=== PATIENT | female | born 1980 | race Caucasian/White ===

== ENCOUNTER 2022-10-14 14:17 | Emergency (ER) | payer MEDICARE, MEDICAID, SELFPAY ==
[2022-10-14 14:19] VITALS: BP 102/71; PULSE 87; RESP 20; TEMP 36.9; O2SAT 99; BMI 33.4
[2022-10-14 14:28] VITALS: O2SAT 98
--- NOTE | 2022-10-14 14:47 | ED_ITS ---
HPI - General Adult General Chief complaint: Seizure Stated complaint: SEIZURES Time Seen by Provider: 10/14/22 14:36 Mode of arrival: ambulance History of Present Illness HPI narrative: The patient have history of Down syndrome is coming to us with her caregiver from adult daycare after she had 4 seizures according to the caregiver, the patient had no preceding symptoms of any acute complain when she all of a sudden felt dizzy and they put her on the floor when she started having upper or lower extremity movement, the patient caregiver mentioned that there was 2 minutes in between when she actually went to stop and will start again another movement of her upper and lower extremities. There was no tongue biting or any urine incontinence at any time and the patient herself when asked about the problem she mentioned that she saw herself moving her upper and lower extremity and she saw people around her when this happened calling her name The patient presenting to us by the EMS Related Data Allergies Allergy/AdvReac Type Severity Reaction Status Date / Time Unable to Assess Allergy Verified 10/14/22 14:23 Review of Systems ROS Status of ROS 10 or more systems reviewed and unremarkable except as noted in history and below Exam Narrative Exam Narrative: Nurses notes and vital signs reviewed and patient is not hypoxic. General: Well-appearing and in no apparent distress. Skin: Warm, dry, no pallor noted. No rash. Head: Normocephalic, atraumatic. Neck: Supple, non-tender. Eye: Pupils are equal, round and EOMI. No scleral icterus. Ears, Nose, Mouth, and Throat: TM are clear, no nasal mucosal hypertrophy. Oral mucosa is moist, no posterior oropharynx erythema, uvula is mid-line Cardiovascular: Regular Rate and Rhythm without murmur, gallop or rub. Respiratory: No accessory muscle use or respiratory distress. Lungs are clear to auscultation, no wheezing, rales or rhonchi Chest Wall: no tenderness Back: No midline thoracic or lumbar vertebral tenderness. No CVA tenderness Musculoskeletal: normal ROM, no calf or popliteal tenderness, no lower extremity edema/swelling GI: Abdomen is soft, non-distended. Normal bowel sounds. No masses appreciated. No tenderness to palpation. No rebound, guarding, or rigidity noted. Neurological: A&O x4. No cranial nerve dysfunction observed. Moves all extremities. Sensation intact. Psychiatric: Cooperative and interactive. Normal mood and affect. Constitutional Vital Signs, click to edit/add: Last Vital Signs Temp 98.5 F 10/14/22 14:19 Pulse 87 10/14/22 14:19 Resp 20 10/14/22 14:19 BP 102/71 10/14/22 14:19 Pulse Ox 98 10/14/22 14:28 O2 Del Method Nasal Cannula 10/14/22 14:28 O2 Flow Rate 4 10/14/22 14:28 Course Vital Signs Vital signs: Vital Signs Temperature 98.5 F 10/14/22 14:19 Pulse Rate 87 10/14/22 14:19 Respiratory Rate 20 10/14/22 14:19 Blood Pressure 102/71 10/14/22 14:19 Pulse Oximetry 99 10/14/22 14:19 Oxygen Delivery Method Room Air 10/14/22 14:19 Temperature 98.5 F 10/14/22 14:19 Pulse Rate 87 10/14/22 14:19 Respiratory Rate 20 10/14/22 14:19 Blood Pressure 102/71 10/14/22 14:19 Pulse Oximetry 98 10/14/22 14:28 Oxygen Delivery Method Nasal Cannula 10/14/22 14:28 Oxygen Delivery Flow Rate 4 10/14/22 14:28 Medical Decision Making MDM Narrative Medical decision making narrative: The patient had presented to us completely oriented x4 and there was no state of postictal recorded today and there was no biting her tongue or incontinence of urine The patient blood work-up showed no acute significant pathology there was some metabolic alkalosis which is mostly secondary to history of COPD which is insignificant with the result being 32.7 and a normal 32 The patient provided with 1 extra dose of her Keppra and she was monitored in the ER for almost 2 hours during which she had no symptoms of any neurological pathology The caregiver at the side and her godmother instructed about hydration and monitoring the symptoms follow-up with the neurologist as outpatient within a week The patient is to follow up with primary care physician in next 2-3 days or to return to the emergency department should any of the signs or symptoms worsen or new symptoms develop. The patient agrees with the following Diagnosis and Treatment plan and the patient will be discharged home. Lab Data Labs: Lab Results 10/14/22 Range/Units 14:55 WBC 10.1 (4.0-11.0) 10^3/uL RBC 4.45 (4.20-5.40) 10^6/uL Hgb 13.1 (12.0-16.0) g/dL Hct 40.1 (36.0-48.0) % MCV 90.1 (81.0-99.0) fL MCH 29.4 (26.7-34.0) pg MCHC 32.7 (29.9-35.2) g/dL RDW 14.7 (11.0-15.0) % Plt Count 267 (150-450) 10^3/uL MPV 9.8 (9.5-13.5) fL Neut % (Auto) 77.7 H (43.0-75.0) % Lymph % (Auto) 13.2 L (20.5-60.0) % [place] % (Auto) 6.6 (1.7-12.0) % Eos % (Auto) 1.0 (0.9-7.0) % Baso % (Auto) 0.9 (0.2-2.0) % Neut # (Auto) 7.8 H (1.4-6.5) 10^3/uL Lymph # (Auto) 1.3 (1.2-3.8) 10^3/uL [place] # (Auto) 0.7 (0.3-0.8) 10^3/uL Eos # (Auto) 0.1 (0.0-0.7) 10^3/uL Baso # (Auto) 0.1 (0.0-0.1) 10^3/uL Abs Immat Gran (auto) 0.06 H (0.00-0.03) 10^3/uL Imm/Tot Granulo (auto) 0.6 H (0.0-0.5) % Sodium 134 L (136-145) mmol/L Potassium 4.0 (3.5-5.1) mmol/L Chloride 98 (98-107) mmol/L Carbon Dioxide 32.7 H (21.0-32.0) mmol/L Anion Gap 7.3 BUN 10.0 (7.0-18.0) mg/dL Creatinine 0.84 (0.55-1.02) mg/dL Est GFR ( Amer) >60 (>=60) Est GFR (Non-Af Amer) >60 (>=60) BUN/Creatinine Ratio 11.9 Glucose 139 H (74-106) mg/dL Calcium 8.4 L (8.5-10.1) mg/dL Magnesium 2.1 (1.8-2.4) mg/dL Total Bilirubin 0.3 (0.2-1.0) mg/dL AST 10 L (15-37) U/L ALT 40 (14-59) U/L Alkaline Phosphatase 79 (46-116) U/L Total Protein 7.9 (6.4-8.2) g/dL Albumin 3.4 (3.4-5.0) g/dL Globulin 4.5 g/dL Albumin/Globulin Ratio 0.8 Discharge Plan Discharge Chief Complaint: Seizure Clinical Impression: Seizure Patient Disposition: Home, Self-Care Time of Disposition Decision: 15:54 Condition: Good Instructions: Epilepsy (ED) Stand Alone Forms: Portal Instructions Referrals: GARRETT CARDENAS [Primary Care Provider] - 1 week
[2022-10-14 15:06] LABS: Basophils Absolute Auto 0.1 10^3/uL (0.0-0.1); Basophils Percent Auto 0.9 % (0.2-2.0); Eosinophils Absolute Auto 0.1 10^3/uL (0.0-0.7); Hematocrit 40.1 % (36.0-48.0); Hemoglobin 13.1 g/dL (12.0-16.0); Immature Granulocytes Abs Auto 0.06 10^3/uL (0.00-0.03); Immature Granulocytes Pct Auto 0.6 % (0.0-0.5); Lymphocytes Absolute Auto 1.3 10^3/uL (1.2-3.8); Lymphocytes Percent Auto 13.2 % (20.5-60.0); Mean Corpuscular HGB Conc 32.7 g/dL (29.9-35.2); Mean Corpuscular Hemoglobin 29.4 pg (26.7-34.0); Mean Corpuscular Volume 90.1 fL (81.0-99.0); Mean Platelet Volume 9.8 fL (9.5-13.5); Monocytes Absolute Auto 0.7 10^3/uL (0.3-0.8); Monocytes Percent Auto 6.6 % (1.7-12.0); Neutrophils Absolute Auto 7.8 10^3/uL (1.4-6.5); Neutrophils Percent Auto 77.7 % (43.0-75.0); Platelet Count 267 10^3/uL (150-450); Red Blood Count 4.45 10^6/uL (4.20-5.40); Red Cell Distribution Width 14.7 % (11.0-15.0); White Blood Count 10.1 10^3/uL (4.0-11.0)
[2022-10-14 15:16] LABS: Alanine Aminotransferase 40 U/L (14-59); Albumin Globulin Ratio 0.8; Albumin Level 3.4 g/dL (3.4-5.0); Alkaline Phosphatase 79 U/L (46-116); Anion Gap 7.3; Aspartate Amino Transferase 10 U/L (15-37); BUN Creatinine Ratio 11.9; Bilirubin Total 0.3 mg/dL (0.2-1.0); Calcium 8.4 mg/dL (8.5-10.1); Carbon Dioxide 32.7 mmol/L (21.0-32.0); Chloride 98 mmol/L (98-107); Estimated GFR (African America >60 (>=60); Estimated GFR (Non-African Ame >60 (>=60); Globulin 4.5 g/dL; Glucose 139 mg/dL (74-106); Magnesium 2.1 mg/dL (1.8-2.4); Sodium 134 mmol/L (136-145); Total Protein 7.9 g/dL (6.4-8.2)
[2022-10-14] MEDS: 0.9 % SODIUM CHLORIDE 1,000 ML 1000 ML IV (15:24)
[2022-10-14] MEDS: LEVETIRACETAM 500 MG TABLET PO (15:50)
== END 2022-10-14 16:26 | disposition home or self-care (01) ==
PROVIDERS: Emergency Provider Emergency Medicine; PCP Nurse Practitioner Family
DX: R56.9 Unspecified convulsions (principal)
CPT/HCPCS: 36415; 80053; 83735; 85025; 99285

== ENCOUNTER 2024-02-27 12:08 | Emergency (ER) | payer MEDICARE, MEDICAID, SELFPAY ==
[2024-02-27 12:15] VITALS: BP 108/54; PULSE 54; TEMP 36.8; O2SAT 100; BMI 33.3
== END 2024-02-27 12:45 | disposition home or self-care (01) ==
PROVIDERS: Emergency Provider Emergency Medicine; PCP Family Medicine
DX: Z53.21 Procedure and treatment not carried out due to patient leaving prior to being seen by health care provider (principal)
CPT/HCPCS: 99281

== ENCOUNTER 2025-01-24 09:19 | Emergency (ER) | payer MEDICARE, MEDICAID, SELFPAY ==
--- OUTSIDE RECORDS SUMMARY | 2024-10-13 09:44 | XMS_ITS | Continuity of Care Document ---
Author Organization [facility] Address [address] [place] [address] Phone Care Team Providers Care Media Director Name Role Phone Niall Cook DDS Unavailable Unavailable Allergies, Adverse Reactions, Alerts Substance Reaction Status Criticality No Known Allergies Active No Inform ation Medications Medication Instructions Dosage Effective Dates (start - stop) Status Comments ammonium lactate 12 % topical cream - Active cephalexin 500 mg capsule take 1 capsule by oral route every 6 hours 500 MG - Active All Day Allergy (cetirizine) 10 mg capsule - Active cranberry 400 mg capsule - Active Fiber Therapy (ca polycarbophil) 625 mg tablet - Active lactulose 10 gram/15 mL oral solution take 15 milliliter by oral route every day 10 G - Active levothyroxine 75 mcg capsule take 1 capsule by oral route every day 75 MCG - Active One Daily For Women 18 mg-0.4 mg tablet - Active simvastatin 20 mg tablet take 1 tablet by oral route every day in the evening 20 MG - Active Noxifol-D3 2,500 unit-1 mg tablet take 1 tablet by oral route every day 1.00 tablet - Active Floranex 1 million cell tablet - Active sertraline 100 mg tablet take 1 tablet by oral route every day 100 MG - Active hydroxyzine HCl 50 mg tablet take 1 tablet by oral route 4 times every day 50 MG - Active acetaminophen 325 mg capsule - Active metformin 500 mg tablet take 1 tablet by oral route 2 times every day with morning and evening meals 500 MG - Active Ventolin HFA 90 mcg/actuation aerosol inhaler inhale 2 puff by inhalation route every 4 - 6 hours as needed 180 MCG - Active Antiseptic Skin Cleanser (chlorhexidine) 4 % liquid - Active ArmonAir Digihaler 55 mcg/actuation aerosol powder breath act, sensor inhale 1 puff by inhalation route 2 times every day - Active levetiracetam 500 mg tablet take 1 tablet by oral route 2 times every day 500 MG - Active Problems Condition Type Effective Dates (start - stop) Clini danisha Status Comments No Known Problems Procedures Procedure Date Prophylaxis Adult Topical Application Of Fluoride Varnish Nutrit Couns For Control Of [place]neg[place] Dis Sep Oral Hygiene Instruction Moderate Risk Resin Composite 2s; Posterior Resin Composite 2s; Posterior Oral Hygiene Instruction Prophylaxis Adult Topical Application Of Fluoride Varnish Nutrit Couns For Control Of [place] Dis Mar Oral Hygiene Instruction Moderate Risk Bitewings Four Films Prophylaxis Adult Topical Application Of Fluoride Varnish Nutrit Couns For Control Of [place]neg[place] Dis Sep Oral Hygiene Instruction Treatment Not Completed Oral Hygiene Instruction Prophylaxis Adult Nutrit Couns For Control Of [place]neg[place] Dis Jan Oral Hygiene Instruction Resin Composite 1s; Posterior Intraoral-complete Series (bw) Oral Hygiene Instruction Comp Oral Eval New/estab Patient 2022 Moderna COVID Vaccine Admin Dose 2 Moderna COVID-19 Vaccine Moderna COVID Vaccine Admin Dose 1 Moderna COVID-19 Vaccine IMMUNIZATION ADMIN FLU VAC NO PRSV 4 RICKY 3 YRS+ Admin influenza virus vac FLU VAC NO PRSV 4 RICKY 3 YRS+ Advance Directives Directive Yes / No Effective Date File Name No Information Encounters Encounter Description Practice Location Reason(s) For Visit Diagnoses Date Provider Providers Copied on Encounter [facility], [address] [place] [address], [id number], [place] tel:[phone] Dental Clinic Encounter for screening for dental disorders [facility]iall. [address], [place], [id number], [place]. tel:[phone] [facility], [address], [place], [id number], [place] tel:[phone] Dental Clinic linda (chief complaint) Encounter for screening for dental disorders [facility] Niall. [address], [place], [id number], [place]. tel:[phone] [facility], [address], [place], [id number], [place] tel:[phone] Dental Clinic [place] (chief complaint) Encounter for screening for dental disordersBody mass index [BMI] 38.0-38.9, adult [facility] Niall. [address], [place], [id number], [place]. tel:[phone] [facility], [address], [place], [id number], [place] tel:[phone] [facility] [place] (chief complaint) Encounter for screening for dental disordersBody mass index [BMI]30.0-30.9, adult Mitchrodger DMD Caleb. [address], [place], [id number], [place]. tel:[phone] [facility], [address], [place], [id number], [place] tel:[phone] Dental Clinic filling (chief complaint) Encounter for screening for dental disorders Kanani DMD Caleb. [address], [place], [id number], [place]. tel:[phone] [facility], [address], [place], [id number], [place] tel:[phone] Dental Clinic Encounter for screening for dental disorders Kanani DMD Caleb. [address], [place], [id number], [place]. tel:[phone] [facility], [address], [place], [id number], [place] tel:[phone] Dental Clinic fill (chief complaint) Encounter for screening for dental disorders Romina Ellis. [address], [place], [id number], [place]. tel:[phone] [facility], [address], [place], [id number], [place] tel:[phone] Dental Clinic [place] (chief complaint) Encounter for screening for dental disorders Romina Ellis. [address], [place], [id number], [place]. tel:[phone] [facility], [address], [place], [id number], [place] tel:[phone] [facility] No Information Visci DO Juan Jose. [address], [place], [id number], [place]. tel:[phone] [facility], [address], [place], [id number], [place] tel:[phone] [facility] No Information Visci DO Juan Jose. [address], [place], [id number], [place]. tel:[phone] [facility], [address], [place], [id number], [place] tel:[phone] [employer] No Information Visci DO Juan Jose. [address], [place], [id number], [place]. tel:[phone] Family History Family Member Type Diagnosis Age At Onset No Information Immunizations Vaccine Date Status Comments Moderna COVID administered Source: New Im munization Record Moderna COVID administered Source: New Im munization Record Fluarix, for 3y-18yrs administered Source : New Immunization Record Payers Payer name Insurance type Covered alliance party ID Authoriza tion(s) [place] Medicaid Primary [employer] [id number] Medicare PPS [id number] Medicaid Crossover [id number] Medicare PPS [id number] Social History Type Description Quantity Date Captured Comments Sex Female Smoking Status No Information Sexual Orientation Straight or heterosexual Gender Identity Female Chief Complaint And Reason For Visit No Information Reason For Referral Reason For Referral No Information Plan Of Treatment Date Type Action Status Goal Unhealthy drug use screening . Due on due Goal Influenza vaccine. Due on due Goal Depression screening. Due on due Goal Hepatitis C screening. Due o n due Goal Lipid panel. Due on due Goal RLP. Due on due Goal PRAPARE ASSESSMENT. Due on due Goal Tdap. Due on due Goal HPV. Due on due Goal Tdap Vaccine. Due on 2024 due Goal Tdap. Due on due Goal Depression screening. Due on due Goal HPV. Due on due Goal Influenza vaccine. Due on due Goal Unhealthy drug use screening . Due on due Goal Lipid panel. Due on due Goal Tdap Vaccine. Due on 2024 due Goal Hepatitis C screening. Due o n due Goal PRAPARE ASSESSMENT. Due on due Goal RLP. Due on due Goal Dietary management education , guidance, and counseling completed Goal Tdap Vaccine. Due on 2023 due Goal Hepatitis C screening. Due o n due Goal Tdap. Due on due Goal Unhealthy drug use screening . Due on due Goal Influenza vaccine. Due on due Goal HPV. Due on due Goal PRAPARE ASSESSMENT. Due on A due Goal Depression screening. Due on due Goal Lipid panel. Due on due Goal RLP. Due on due Goal Dietary management education , guidance, and counseling completed Goal Hepatitis C screening. Due o n due Goal HPV. Due on due Goal Tdap. Due on due Goal Influenza vaccine. Due on due Goal Depression screening. Due on due Goal Tdap Vaccine. Due on 2023 due Goal Lipid panel. Due on 024 due Goal RLP. Due on due Goal Unhealthy drug use screening . Due on due Goal PRAPARE ASSESSMENT. Due on due Goal Lipid panel. Due on 023 due Goal Influenza vaccine. Due on due Goal Tdap Vaccine. Due on 2022 due Goal Depression screening. Due on due Goal Tdap. Due on due Goal PRAPARE ASSESSMENT. Due on due Goal Unhealthy drug use screening . Due on due Goal Hepatitis C screening. Due o n due Goal RLP. Due on due Goal HPV. Due on due Goal PRAPARE ASSESSMENT. Due on due Goal Unhealthy drug use screening . Due on due Goal Depression screening. Due on due Goal Influenza vaccine. Due on De due Goal Hepatitis C screening. Due o n due Goal RLP. Due on due Goal HPV. Due on due Goal Tdap Vaccine. Due on 2022 due Goal Tdap. Due on due Goal Lipid panel. Due on due Goal HPV. Due on due Goal Tdap. Due on due Goal Influenza vaccine. Due on No due Goal Lipid panel. Due on due Goal PRAPARE ASSESSMENT. Due on N due Goal Unhealthy drug use screening . Due on due Goal Hepatitis C screening. Due o n due Goal Depression screening. Due on due Goal Tdap Vaccine. Due on 2022 due Goal Hep A. Due on du e Goal RLP. Due on due Referral Ordered: Delgado Valdez MD timeframe: 6 Months. (related to Body mass index [BMI] 38.0- 38.9, adult) [id number] Ordered: Delgado Valdez MD timeframe: 6 Months. (related to Body mass index [BMI] 30.0- 30.9, adult) [id number] History Of Present Illness Encounter Date Complaint History Of Prese nt Illness linda linda cedric steele CEDRIC STEELE filling filling fill fill DN Functional Status Date Functional Assessmen t No Information Instructions Date Instruction Additional Infor mation Dietary management e ducation, guidance, and counseling Related to Body mass index [BMI] 38.0-38.9, adult Giving encouragement to exercise Related to Body mass index [BMI] 38.0-38.9, adult Dietary management e ducation, guidance, and counseling Related to Body mass index [BMI] 30.0-30.9, adult Giving encouragement to exercise Related to Body mass index [BMI] 30.0-30.9, adult Assessments Type Assessment Date No Information Patient Care Teams Name Effective Dates (start - stop) Status Members No Information
--- OUTSIDE RECORDS SUMMARY | 2025-01-12 06:14 | XMS_ITS | Continuity of Care Document ---
Author Organization [facility] Address [address] [place] [address] Phone Care Team Providers Care Tool/Die Maker Name Role Phone Delgado Valdez MD Primary Care Provider Shavon Sebastian Attending Provider + Care Teams Patient Care Team Team Status: Active Member Role/Relationship Status Dates Delgado Valdez MD Primary Care Provider Active Patient Care Team Team Status: Inactive Member Role/Relationship Status Dates Delgado Valdez MD Primary Care Provider Active S tart: January 12, 2025 End: January 12, 2025Faisal Avilatending ProviderActive Start: January 12, 2025 End: January 12, 2025 Chief Complaint and Reason for Visit Chief Complaint Admit Date Follow up January 12, 2025 9:54am Reason for Visit Admit Date Encounter for medication monitoring Kelli sanchez 2024 9:54am Seizures January 12, 2025 9:54am Allergies, Adverse Reactions, Alerts Allergen Type Severity Reaction Last Updated Verified Status diazepam Allergy Unknown Unknown Reaction January 12, 2025 10:39am Yes Active Social History Smoking Status Status Start Date End Date Date of Observa tion Tobacco smoking consumption unknown (emma dodson) October 05, 2024 7:38pm Observation Status Observation Response Date of Response Legal Sex Female (finding) [facility] 1980 Family History Relationship Condition Age at Onset Recorded Date/T bonny father Unknown motherDeceasedUnknownMalignant neoplasmUnknown Problems Active Problems Problem Diagnosis/Recorded Date Onset Date Stat us Counseling regarding advance directives and goals of care June 16, 2023 1:34pm Unknown Active Obstructive sleep apnea June 23, 2022 3:22pm Unknow n Active Acute respiratory failure with hypoxia December 29 1:26pm Unknown Active Respiratory failure with hypercapnia June 23, 2022 9:46am Unknown Active Acute hypercapnic respiratory failure June 23, 2022 3:22pm Unknown Active Impaired mobility and ADLs June 28, 2022 1:10pm Unknow n Active Fever December 28, 2018 10:41pm Unknown A ctive Diabetes June 23, 2022 9:47am Unknown Acti ve Hypoxemia June 22, 2022 9:11pm Unknown Acti ve Encounter for medication monitoring October 07, 2024 10:28am Unknown Active History of seizure June 12, 2023 4:07pm Unknown Active Psychiatric pseudoseizure June 22, 2022 10:01pm Unk nown Active Acute and chronic respirator y failure with hypercapnia July 05, 2022 11:38am Unknown Active Hypothyroid December 28, 2018 5:58pm Unknown Ac tive Acute respiratory failure wi th hypoxia and hypercapnia June 28, 2022 1:10pm Unknown Active CAP (community acquired pneumonia) June 22, 2022 9: 11pm Unknown Active Diabetes mellitus with hyperglycemia June 12, 2023 4:31pm Unknown Active Aspiration pneumonia June 23, 2022 9:47am Unknown Active Aspiration pneumonia June 18, 2023 11:18am Unknown Active Acute hypoxemic respiratory failure June 23, 2022 3 :27pm Unknown Active Down syndrome December 28, 2018 10:40pm Unknown Active Seizure disorder September 22, 2024 6:46am Unknown A ctive Seizure June 23, 2022 9:47am Unknown Acti ve Seizures October 07, 2024 8:43pm Unknown Act juan Productive cough December 28, 2018 10:41pm Unknown Active Chronic respiratory failure with hypoxia and hypercapnia June 12, 2023 4:31pm Unknown Active Acute on chronic respiratory failure with hypoxia and hypercapnia June 11, 2023 8:41pm Unknown Active BMI 39.0-39.9,adult June 14, 2023 11:53am Unknown Active Community acquired bacterial pneumonia December 28 019 10:41pm Unknown Active Hypoxia December 28, 2018 10:42pm Unknown A ctive Pulmonary vascular congestion June 23, 2022 3:22pm Unknown Active Acute diastolic (congestive) heart failure June 12, 2023 4:31pm Unknown Active HTN (hypertension) December 28, 2018 5:58pm Unknown Active Pneumonitis June 23, 2022 9:47am Unknown Acti ve Obesity June 23, 2022 3:23pm Unknown Acti ve Inactive/Resolved Problems Problem Diagnosis/Recorded Date Onset Date Stat us Breakthrough seizure April 19, 2024 11:24am Unkno wn Resolved Adnexal cyst October 04, 2024 6:04pm Unknown Res olved Seizure-like activity October 04, 2024 6:02pm Unknown Resolved Seizure-like activity October 05, 2024 7:48pm Unknown Resolved UTI (urinary tract infection) December 17, 2020 5:35p m Unknown Resolved UTI (urinary tract infection) January 15, 2024 9:58 am Unknown Resolved UTI (urinary tract infection) May 25, 2024 10:50pm Unknown Resolved Malfunction of continuous po sitive airway pressure (CPAP) or bilevel positive airway pressure (BPAP) machine October 15, 2023 10:34am Unknown Resolved Observed seizure-like activity April 15, 2023 6:0 2pm Unknown Resolved Chronic respiratory failure with hypercapnia April 05, 2023 2:28pm Unknown Resolved Contusion of knee May 30, 2023 8:42am Unknown Resolved Seizure January 15, 2024 9:58am Unknown R esolved Seizure April 24, 2024 11:53am Unknown Reso lved Lumbar back sprain May 06, 2023 9:55pm Unknown Resolved Chest wall contusion May 30, 2023 8:42am Unknown Resolved Psychogenic nonepileptic seizure October 05, 2024 9:1 7am Unknown Resolved Minor closed head injury May 30, 2023 8:42am Unknow n Resolved Abdominal pain July 26, 2023 10:26pm Unknown Res olved Medications Medication Status Dose Units Route Directions Qty Days Refills S tart Date Stop Date End Date Reason(s) Instructions Adherence Multivitamin (One-A-Day Essential) Tablet Discontinued 1 T AB PO Daily December 28, 2018 12:00amApril 2023 5:34pmAmmonium Lactate 12 % lotion Dtbqotaghvxa5DGDONOUPZXPWDAcitk dailyU[facility] 2018 12:00amOctober 2020 2:42pmCetirizine 10 mg msiwqgCbdrxxrtctie52RFLFYavdyWhecpuaa 2018 12:00amApril 2023 5:34pmClonazepam 0.5 mg tabletDiscontinued0.25MGPOTwice dailyLake [facility]2018 12:00amN[facility] 2018 12:59pmLevothyroxine 75 mcg ognrzdBpwpon77GTXCBIsnvkSuudoypa 2018 12:00amComplies with drug therapy Simvastatin 20 mg uabrcrTrmfhsntwsck38RJIEBnvxmlaIiqrtnti 2018 12:00am March 13, 2023 9:33amCalcium Polycarbophil 625 mg hoacnzCofdxpiholhq393YQZE DailyUofl [facility] 2018 12:00amJanuary 2023 9:32amCranberry 500 mg Capsule Lhapajdgitnn812EDCHCdhww as needed for Bladder SpasmsUofl Health - [facility] 2018 12:00am March 13, 2023 9:32amLactulose 10 gram/15 mL hujtxvblZzbmnrxncpef44ZEZVYhcmi dailyUofl [facility] 2018 12:00amApril 2023 5:34pmAcetaminophen 325 mg NlqhjbdAzjqcz493OTDSJ1E as needed for PainUofl [facility] - [facility] 2018 12:00amComplies with drug therapyCholecalciferol (Vitamin D3) (Vitamin D3) 2,000 unit Capsule Tblibntyecih2449UDTDRJIutukQqrtjnbj 2018 12:00amApril 2023 5:34pm Lactobacillus Acidoph-L.Bulgar (Floranex) 1 million cell KyybfyYuhwdwelaqba9AFP PODailyNoveaurora east hospital 2018 12:00amApril 2023 5:34pmAzithromycin 250 mg KzbndxLqcszygaxdxp613KFHFVdjuq516Jdcntoml 2018 12:00amOctober 2020 2:42pmCefuroxime Axetil 500 mg bzxdwePvgovtwrphai665QHGZToxmr xpasu5768ZayycfmsDecember 30, 2018 12:00amOctober 2020 2:42pmClonazepam 0.5 mg tabletDiscontinued 0.25MGPOTwice gywmx32Elowvplh 6th, 2019 12:59pmOctober 2020 2:42pmDown syndrome Down syndrome, unspecifiedCranberry Plus Vitamin HGwzyerpufecx6FRSZJVqbfbHpfrblr 2023 12:00amApril 2023 5:28vg0594-57-3 RT-FQ-PBWMFshpdmycah 0.5 mg tabletDiscontinued0.5MGPOTwice dailyJanuary 2023 12:00amFebruary 2023 2:93kjMygljiqroLksglfymghcj6VFAAZGikddEehcpul 2023 12:00amFebruary 2023 2:57qyrwmueezjFlrhgkemdwrz7ITJKVMxohcEuwxfbd 2023 12:00am April 05, 2023 2:40cz922Dxntsknzzj 500 mg sjmyawlGvikrzndaset800BSUQ2 Times a weekJanuary 2023 12:00amApril 2023 5:34pmMWF TO PREVENT UTICalcium Polycarbophil (Fiber Therapy (Ca Polycarboph)) 625 mg ooqeqfLhmwjaaslrqe782RQFG DailyApril 2023 11:00pmApril 2023 5:34pmMagnesium Hydroxide (Milk Of Magnesia) 400 mg/5 mL azwqfhnyguEijziq77GYSPNaqaf daily as needed for constipationApril 2023 11:00pmwhen Lactulose not working and Fiber Therapy not workingComplies with drug therapyMagnesium Hydroxide (Milk Of Magnesia) 400 mg/5 mL rvkdvbpfbmUlwkipuddtwp27CFQDFgzet daily as needed for constipationApril 2023 11:00pmApril 2023 5:34pmwhen Lactulose and Fiber Therapy not workingCalcium Polycarbophil (Fiber-Lax) 625 mg hppvshDtwpzxmlbxww904LLRIRofdz morningApril 2023 11:00pmAugust 2024 7:53amLactobacillus Acidoph- L.Bulgar (Floranex) 1 million cell syprciKudqvndqeyca9IJSHMRkftdTalpf 2023 11:00pmApril 2023 5:34pmNystatin 100,000 unit/gram lbzodWikktl3GXBXWO TOPICALTwice daily as needed for rashApril 2023 11:00pmComplies with drug therapyCephalexin 500 mg bsdqcbbJlgthdazcpik320ASCQHoncn udqpi522Xlzmvlbb2023 12:00amJuly 2024 7:23amLevetiracetam (Keppra) 750 mg tablet Gikxibhgbyen931YEFTNbapk cvqkt13432Fznaxali2023 12:00amAugust 2024 7:53amClotrimazole-Betamethasone 1-0.05 % ifzpzPoublt7RHEBTBWTOJXTEHpfoe daily January 15, 2024 12:00amComplies with drug therapyCalcium Polycarbophil (Fiber (Calcium Polycarbophil)) 625 mg jwsrqpBoarmy003JHLXRqrzxPnmfhx 2024 11:00pmComplies with drug therapyLoratadine 10 mg xlkkymGcbatv16AWYMKjwieGwomvp 2024 11:00pmComplies with drug therapyNitrofurantoin Monohyd/M-Cryst 100 mg nttjshqFzxpmx863XUEFZrtqj at bedtimeAuunm cancer centert 2024 11:00pmComplies with drug therapyCranberry 500 mg kfhzqimKuyjpt566IJGPBywbhVdfijb 2024 11:00pm administer with a mealComplies with drug therapySertraline 100 mg TabletActive 150MGPODailyOctober 2020 11:00pmComplies with drug therapyMagnesium Hydroxide (Milk Of Magnesia) 400 mg/5 mL UoaybqmsfqGuhpkaznvwls20LDXCSdejl 2020 11:00pmFebruary 2023 2:30pmConstipationHOLD LOOSE STOOL Cephalexin 500 mg lzeolvaAceyfgrsongv640VXAO3 Times a weekOctober 2020 11:00pmMay 2022 1:20pmMONDAY FRI, FRIDAYClotrimazole-Betamethasone 1-0.05 % JrzloMoesiydbddwy5ZAQATUPYSYKTYXyzyb dailyOctober 2020 11:00pmApril 2022 7:28pmNystatin (Nyamyc) 100,000 unit/gram GhihwgXgljvbcegvqo5YQPHKOZCGVMEP Twice dailyOctober 2020 11:00pmFebruary 2023 2:30pmFluticasone Propionate 50 mcg/actuation [place],DbeefmpderNbzxcabnamjb6SJTSHKNGOCKXNSGYrndk 2020 11:00pmApril 2023 5:34pmCephalexin 500 mg capsule Lfhxyoqvhelt099QNWCD2Q0918Spiqtul 23rd, 2021 11:00pmApril 2022 7:27pm Ammonium Lactate 12 % atoyqeDkbkesokfqcl1IEXODBJJNRJHATmuli dailyApril 2022 11:00pmApril 2023 5:34pmMetformin 500 mg tablet extended release 24 dsPwotvcvnorow967DSMPBsbuu eveningApril 2022 11:00pmJanuary 2023 9:32amHydroxyzine Hcl 50 mg dvrczgDmjgmfpbdsll49YRYAZjnoscu as needed for InsomniaApr2022 11:00pmJanuary 2023 9:32amGuaifenesin (Mucus Relief Er) 1,200 mg tablet extended release 09mrIrcguzslqtxg4908EWCVOsfvz daily 200May 2022 11:00pmJanuary 2023 9:32amSimvastatin 20 mg tablet Pxcacovebowo13XJIFHildc eveningFebruary 2023 12:00amApril 2023 5:34pmHydroxyzine Hcl 50 mg wefbjfUnzovbskxxwk26MHLUKsaonfaTtedfdpf 2023 12:00amApril 2023 5:34pmMetformin 500 mg unnkgdRbukmjaxlmmg218EGTOSjqhi eveningFebruary 2023 12:00amApril 2023 5:34pmFreeTextSi tablet with a meal Orally Once a day; Note: Source Status: Taking; Provider: Neftali Dubois ( )Albuterol Sulfate (Proair Hfa) 90 mcg/actuation HFA aerosol kwivkllRmvpypljgtme0WHERBQVHOOSRIKC7Q as needed for shortness of breathFebruary 2023 12:00amJanuary 2024 8:10amGuaifenesin 600 mg tablet extended release 72zvUtghzretnhuu6200XEYMKfzkh daily as needed for congestionFebruary 2023 12:00amNovember 2023 12:41pmTrazodone 150 mg cntgtzZcafwvmeygzx984CTWYBtfhpbd as needed for sleepFebruary 2023 12:00am June 18, 2023 5:34pmAlbuterol Sulfate (Proair Hfa) 90 mcg/actuation HFA aerosol crgfvyqMurawzgxqtnp3SRUHLSNBNZCXDQU2I as needed for shortness of breath March 03, 2024 8:09amAugust 2024 9:52amCephalexin 500 mg capsule Fkxppqssewpf839SBEHLoqhp times oetvd3326Fssuavlh 2023 12:00amApril 2023 5:34pmCyclobenzaprine 10 mg cppkmwUjqdnaxmxvcp47WKVRXwizn times daily as needed for Muscle Srqvi245Wsken 2023 11:00pmApril 2023 5:34pm Ibuprofen 800 mg ccnklrTdyiebbvmyvi114ZECMDrebv times daily as needed for Pain20 0March 2023 11:00pmApril 2023 5:34pmAcetaminophen (Tylenol) 325 mg wpenfpNnurrnnhzyyg033MMCMNujae 6 hours as needed for pkir5627Xdokmr 2024 11:00pmAugust 2024 7:52amLidocaine (Lidoderm) 5 % adhesive patch,medicated Hgpuorbgqkkz1ZZPONLFDNANZLsbph93875Hkftik 2024 11:00pmAugust 2024 7:08pmpainleave on most painful area for up to 12 hrsDivalproex 250 mg tablet,delayed release (DR/EC)Nmqdhjgjcuxb624BDPHTperu epkcz368Dekt 2024 11:00pmAugust 2024 10:25amSeizure Unspecified convulsionsSimvastatin 20 mg ljxsaeHlmkwo41FPUZBgjboYwrxesx 2024 12:00amComplies with drug therapyAlbuterol Sulfate (Ventolin Hfa) 90 mcg/actuation HFA aerosol jtipcofJuivvy4VBQRLVOSQDZNULOeino 4 hours as needed October 06, 2024 11:00pmComplies with drug therapySertraline 50 mg tablet Jbcmsngejaph67RHPOHrzyvGmqkjm 2024 11:00pmAugust 2024 10:12am Divalproex 500 mg tablet,delayed release (DR/EC)Ehsfnm998WGAKRwfnp anurr53782 October 07, 2024 10:25amSeizure Unspecified convulsionsComplies with drug therapy Immunizations Immunization Event Date Not Given Reason Dose Number Cloth Burler Lot Number Reason(s) Given Vaccine Information Statement (VIS) Detail Administration Location COVID-19 mRNA Bivalent Booster (Moderna) March 15, 2020 [id number] Vital Signs Vital Reading Result Reference Range Collection Date/Time Height 56 [in_i] January 12, 2025 10:15yoNmhsur51.92 kgJanuary 12, 2025 10:13amHeart Rate70 /yte48-983RmhbmevqJanuary 12, 2025 10:13amRespiratory rate18 /ctj08-88YnpcjyeyJanuary 12, 2025 10:13amOxygen saturation by Pulse oxuchluz20 %95-100January 12, 2025 10:13amBP Cyzeqpfb718 mm[Hg]100-140January 12, 2025 10:13amBP Nypskhosm73 mm[Hg]60-100January 12, 2025 10:13amBMI (Body Mass Index)38.9 kg/l6LbornounJanuary 12, 2025 10:13am Advance Directives Advance Directive Response Recorded Date/ Time Advance Directives No October 15, 2023 8:56am Insurance Providers Guarantor Kelsey Graves Address [address] [facility] [address]Ejsrulo Info.Home Phone: Payer Group Member ID Coverage Type Subscriber Relationship to Subscriber Effective Date Expiration Date Medicaid [id number] L Stein Id: [id number] [address] [place] [id number] Home Phone: Email: DECLINED 18[employer] [id number] L Stein Id: [id number] [address] [place] [id number] Home Phone: Email: DECLINED 18Self Encounters Encounter Location(s) Arrival/Admit Date Discharge/Departure Date Discharge/Departure Disposition Provider(s) Departed Physician/ Provider [facility] January 12, 2025 9:54am January 12, 2025 11:12am Discharged to home care or self care (routine discharge) Shavon Sebastian , RN [facility] Recent Diagnosis Onset Date Admit Date Encounter for medication monitoring Unknown January 12, 2025 9:54am Seizures Unknown January 12, 025 9:54am Assessments Diagnosis Onset Date Resolution Status Admit Date Encounter for medication monitoring acuteNov2024 9:54amSeizureschronicNov2024 9:54am Plan of Treatment Author Shavon Sebastian [facility]Auth[facility]Nov2024 5:48pmMs. Ely is a 44-year-old female with a history of seizure-like activity. She does have a history of Down syndrome which increases her risk for epilepsy. She also has a documented history of AVMs. The patient was evaluated at [facility] on 06/22/2022 for seizure-like activity and found to have acute hypoxic and hypercapnic respiratory failure and bacterial pneumonia at the time. CT head was nonacute. TSH and B12 were within normal limits. Routine EEG revealed moderately slow background rhythm consistent with encephalopathy but was somewhat limited due to near continuous extraneous or motion or muscle related artifact. 2-hour EEG on 08/15/2022 and ambulatory EEG in December 2022 were normal. Per prior documentation, the patient did have a few episodes during the ambulatory EEG without EEG correlate, consistent with nonepileptic events. She is felt to have possible epilepsy and concurrent nonepileptic seizure-like activity. The patient previously took Keppra, but this was stopped due to concern for adverse effects on her mood. At the prior neurology appointment, Keppra was discontinued, and Depakote was prescribed. Caregiver reports concern for 6 possible breakthrough seizure in the patient since that time with no apparent triggers. Will increase the patient's Depakote in the event that some of these may have been epileptic (some seemed to involve loss of consciousness, tonic-clonic activity, and head injury, and one involved possible tongue bite concerning for epileptic cause). 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 The patient was evaluated in the ED three times between 10/04/2024 and 10/05/2024 for seizure-like activity and subsequent head injuries. I reviewed documentation. CT scans of the brain revealed no acute intracranial abnormality each time. PLAN: - Increase divalproex sodium to 500 mg by mouth twice a day. I counseled the patient and her caregiver on the intended purpose of this medication and possible adverse effects. They verbalized understanding and wished to proceed - I counseled the patient and her caregiver on seizure precautions including no driving, no operating heavy machinery, no climbing ladders, no working at heights, no tub bathing alone, no swimming alone, no swimming in dark spencer. Seizure precautions to continue until the patient is at least 6 months episode free and cleared by neurology - I advised the patient's caregiver to promptly notify our office if the patient has any breakthrough seizures prior to the next scheduled follow-up appointment - Patient to be immediately evaluated in the emergency department should she have a seizure lasting longer than 5 minutes or more than 1 seizure in 24 hours in the future or if she fails to return to her baseline state of health following a seizure Divalproex sodium use. PLAN: - Check valproic acid level Diagnoses and treatment plan discussed. The patient and her caregiver verbalized understanding and are agreeable to the plan. All questions answered. Orders placed via facility paperwork. Future Tests Future scheduled test information is unavailable Pending Tests Pending diagnostic test information is unavailable Future Visits Future appointment information is unavailable Future Procedures Future procedure information is unavailable Future Medications Future medication information is unavailable Patient Instructions Patient instructions are unavailable
--- OUTSIDE RECORDS SUMMARY | 2025-01-12 14:00 | XMS_ITS | Encounter Summary ---
Author Organization [facility] Address [address] [place] [address] Care Team Providers Care Car Retarder Operator Name Role Phone Delgado Valdez MD Primary Care Provider [phone] Delgado Valdez MD Unavailable [phone] Alize Figueredo HEALTH CARE FACILITY ADMINISTRATOR Unavailable [phone] Reason for Visit * ReasonCommentsDM Foot Care Encounter Details DateTypeDepartmentCare Team (Latest Contact Info)Vvuvhghnlow11/19/2025 2:00 PM ESTProcedure Visit [facility] [address] [place] [phone] Raymon Pritchett DPQiana [address] [address] Tinea pedis, unspecified laterality (Primary Dx); Pain due to onychomycosis of toenails of both feet; Type 2 diabetes mellitus without complication, without long-term current use of insulin ([facility]) Social History Tobacco UseTypesPacks/DayYears UsedDateSmoking Tobacco: NeverSmokeless Tobacco: Never Tobacco Cessation:Counseling Given: Yes Alcohol UseStandard Drinks/WeekCommentsNever0 (1 standard drink = 0.6 oz pure alcohol)AUDIT-CAnswerDate RecordedQ1: How often do you have a drink containing alcohol?Never04/28/2024Q2: How many drinks containing alcohol do you have on a typical day when you are drinking?Patient does not drink04/28/2024Q3: How often do you have six or more drinks on one occasion?Never04/28/2024PHQ-2AnswerDate RecordedPatient Health Questionnaire-2 Xrbmg04602/29/2024CommentsNoSex and Gender InformationValueDate RecordedSex Assigned at BirthNot on fileLegal Sex Zquztp6105/08/2022 6:42 PM EDTGender IdentityNot on fileSexual OrientationNot on filedocumented as of this encounter Last Filed Vital Signs Vital SignReadingTime TakenCommentsBlood Pressure--Pulse--Temperature-- Respiratory Wtgt831803/14/2024 1:43 PM ESTOxygen Saturation--Inhaled Oxygen Concentration--Gpocya95.1 kg (170 lb)01/12/2025 1:43 PM LEVUnrkfd001.2 cm (4' 8 )01/12/2025 1:43 PM ESTBody Mass Index38. 1:43 PM ESTdocumented in this encounter Progress Notes * Raymon Pritchett, DPM - 01/12/2025 2:00 PM EST Patient: Kelsey Lehman Ely : 1980 PCP: Delgado Valdez MD SUBJECTIVE This is a 44 y.o. female that presents today with a CC of elongated, thick nails. Pt states nails have been elongated and thick for many years and cause pain with ambulation in shoegear. Pt has tried previous treatment with minimal relief. Pt presents today for nail care and treatment. Presents today with care worker She is DM2 Presents today with careworker Pt also presents today for follow up of tinea pedis. Pt states they have been using medicated antifungal cream with positive improvement And states negative itching to feet and toes. Allergies: Allergies Allergen Reactions Diazepam Unknown Past Medical History: Past Medical History: Diagnosis Date Acute diastolic heart failure (HCC) 07/22/2024 Allergies BMI 33.0-33.9,adult Breakthrough seizure ([facility]) 07/22/2024 Chronic obstructive pulmonary disease ([facility]) 07/22/2024 Chronic respiratory failure with hypoxia and hypercapnia ([facility]) 07/22/2024 Controlled type 2 diabetes mellitus without complication ([facility]) Developmental delay Diabetes mellitus with hypoglycemia ([facility]) 07/22/2024 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 12/08/2008 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 DM type 2 (diabetes mellitus, type 2) ([facility]) Down syndrome ([facility]) 11/08/2008 Down syndrome ([facility]) 04/2016 Pseudoseizure Hospitalization Dysuria 07/22/2024 Factitious illness 10/23/2016 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 Gross hematuria 07/22/2024 Heart disease History of heart valve replacement HTN (hypertension) Hypersomnia 12/08/2008 Hypertension 07/22/2024 Hypothyroidism Microhematuria 07/22/2024 Obesity Obesity (BMI 30.0-34.9) OM (onychomycosis) 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 Scoliosis Seizures ([facility]) Sensorineural hearing loss 07/22/2024 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 Snoring Tinea pedis Toe pain, bilateral Transient alteration of awareness 07/02/2016 Medications: Current Outpatient Medications: acetaminophen (Tylenol) 325 MG tablet, Take 325 mg by mouth every 6 (six) hours if needed for mild pain, Disp: , Rfl: albuterol HFA 90 mcg/act inhaler, Inhale 2 puffs every 4 (four) hours if needed for wheezing or shortness of breath, Disp: , Rfl: divalproex (Depakote) 250 MG EC tablet, Take 1 tablet (250 mg) by mouth in the morning and 1 tablet(250 mg) before bedtime. Do not crush, chew, or split., Disp: 60 tablet, Rfl: 2 levothyroxine (Synthroid, Levoxyl) 75 MCG tablet, Take 1 tablet (75 mcg) by mouth in the morning. Take before meals., Disp: 90 tablet, Rfl: 1 nitrofurantoin, macrocrystal-monohydrate, (Macrobid) 100 MG capsule, Take 1 capsule (100 mg) by mouth at bedtime, Disp: 90 capsule, Rfl: 3 nystatin-triamcinolone (Mycolog II) cream, Apply topically 2 (two) times a day as needed (rash), Disp: 30 g, Rfl: 1 oxygen (O2) gas, Inhale 4 L/min continuously, Disp: , Rfl: polycarbophil (FiberCon) 625 MG tablet, Take 1 tablet (625 mg) by mouth Daily, Disp: 30 tablet, Rfl: 11 sertraline (Zoloft) 100 MG tablet, Take 1 tablet (100 mg) by mouth Daily, Disp: 90 tablet, Rfl: 0 sertraline (Zoloft) 50 MG tablet, Take 50 mg by mouth in the morning., Disp: , Rfl: simvastatin (Zocor) 20 MG tablet, Take 1 tablet (20 mg) by mouth 1 (one) time each day at the same time, Disp: 90 tablet, Rfl: 3 Social History: Social History Socioeconomic History Marital status: Unmarried Spouse name: Not on file Number of children: Not on file Years of education: Not on file Highest education level: Not on file Occupational History Not on file Tobacco Use Smoking status: Never Smokeless tobacco: Never Vaping Use Vaping status: Unknown Substance and Sexual Activity Alcohol use: Never Drug use: Never Sexual activity: Defer Partners: Decline to Answer Other Topics Concern Not on file Social History Narrative Not on file Social Drivers of Health Financial Resource Strain: Not on file Food Insecurity: Not on file Transportation Needs: Not on file Physical Activity: Not on file Stress: Not on file Social Connections: Not on file Intimate Partner Violence: Not on file Housing Stability: Not on file ROS: General: denies fever, chills, fatigue, malaise OBJECTIVE LE EXAM: DERM: Elongated thick yellow crumbly nails digits 1 through 10. Positive hair growth b/l feet. negative maceration to interdigital spaces bilateral feet with greatly diminished peeling and dry skin noted to interdigital spaces VASC: Positive palpable pedal pulses bilaterally NEURO: Gross sensation intact to bilateral feet ORTHO: Positive pain on palpation to toenails of the left 1,2,3,4,5 toes and right 1,2,3,4,5 toes ASSESSMENT 1. Tinea pedis, unspecified laterality 2. Pain due to onychomycosis of toenails of both feet 3. Type 2 diabetes mellitus without complication, without long-term current use of insulin (HCC) PLAN Discussed proper foot care with patient today. Continue creams to feet daily of antifungals Debride nails in length and thickness digits 1 through 10 Patient education concerning tinea infection. Discussed use of antifungal cream and foot powders aswell as good foot hygiene and prevention measures. Patient education on condition and treatment of condition. Raymon Pritchett DPM documented in this encounter Plan of Treatment DateTypeDepartmentCare Team (Latest Contact Info)Snjnmcudbnt06/11/2025 3:00 PM ESTOffice Visit [facility] [address] [place] [phone] Patsy Craft DO [address] [place] [address] 03/30/2025 1:30 PM ESTProcedure Visit [facility] [address] [place] [address] Raymon Pritchett DPM [address] [place] [address] 04/20/2025 9:00 AM ESTOffice Visit [facility] [address] [place] [phone] Alize Figueredo, HEALTH CARE FACILITY ADMINISTRATOR [address] [place] [phone] 06/29/2025 10:00 AM EDTOffice Visit [facility] [address] [place] [phone] Alize Figueredo, HEALTH CARE FACILITY ADMINISTRATOR [address] [place] [phone] documented as of this encounter Visit Diagnoses Diagnosis Tinea pedis, unspecified laterality- Primary Pain due to onychomycosis of toenails of both feet Type 2 diabetes mellitus without complication, without long-term current use of insulin (HCC) documented in this encounter Additional Health Concerns AssessmentNoted TimePHQ-9 Depression Total Score: 4:00 PM EST documented as of this encounter Care Teams Team MemberRelationshipSpecialtyStart DateEnd Date Delgado Valdez MD [address] [place] [address] PCP - GeneralFamily Medicine07/09/22 Delgado Valdez MD [address] [place] [address] PCP - ACO [facility]08/05/22 Alize Figueredo NP [address] [place] [address] Nurse PractitionerFamily Kfonuvat45/19/24documented as of this encounter
[2025-01-24 09:24] VITALS: BP 131/72; PULSE 88; TEMP 36.8; O2SAT 94; BMI 34.5
--- NOTE | 2025-01-24 09:38 | ECG_ITS ---
The [facility] Test Date: 2025-01-24 Pat Name: DALJIT MCCALLUM Department: Room: - Gender: Female Teachers Assistant: : 1980 Requested By: Order Number: [id number] Reading MD: Aryan Persaud Measurements Intervals [place] Rate: 80 P: 61 IA: 176 QRS: -64 QRSD: 114 T: 65 QT: 382 QTc: 419 Interpretive Statements 1100 Sinus rhythm 2440 Incomplete right bundle branch block 2630 Left anterior fascicular block 4068 Nonspecific Twave abnormality 8003 Consistent with pulmonary disease 8102 Low QRS voltage in chest leads 9150 abnormal ECG No previous ECG available for comparison Electronically Signed On 01-24-2025 13:32:53 EST by Aryan Persaud
--- NOTE | 2025-01-24 09:40 | ED.ABDPAIN1 ---
HPI - Abdominal Pain General Chief Complaint: Abdominal Pain Stated Complaint: ABDOMINAL PAIN VOMITING DIARRHEA Time Seen by Provider: 01/24/25 09:29 Source: caregiver Mode of arrival: walk-in Limitations: no limitations History of Present Illness HPI narrative: 44-year-old female with past medical history of Down syndrome presenting to us from her group activity as she resides in a fpc, with a complaint of almost 2 to 3 days history of nausea vomiting some diarrhea as well as shortness of breath, the staff did put the patient on oxygen over the last few days although right now she does not need any oxygen. The patient is hard of hearing and not showing any distress at the moment but she does complain of abdominal pain mostly epigastric. And some nausea with vomiting 1 time and this morning as well as diarrhea. No exposure to anybody with similar symptoms Related Data Previous Rx's ?Medication ?Instructions ?Recorded ondansetron 4 mg disintegrating 4 mg PO Q8H nausea 48 hours #10 01/24/25 tablet tabs Allergies Allergy/AdvReac Type Severity Reaction Status Date / Time diazepam Allergy Mild Unknown Verified 01/24/25 09:24 Review of Systems ROS Status of ROS 10 or more systems reviewed and unremarkable except as noted in history and below Exam Narrative Exam Narrative: Nurses notes and vital signs reviewed and patient is not hypoxic. General: Well-appearing and in no apparent distress. Skin: Warm, dry, no pallor noted. No rash. Head: Normocephalic, atraumatic. Neck: Supple, non-tender. Cardiovascular: Regular Rate and Rhythm without murmur, gallop or rub. Respiratory: No accessory muscle use or respiratory distress. Lungs are clear to auscultation, no wheezing, rales or rhonchi Musculoskeletal: normal ROM, no calf or popliteal tenderness, no lower extremity edema/swelling GI: Abdomen is soft, obese and distended but there is no tenderness on palpation Neurological: A&O x4. No cranial nerve dysfunction observed. Constitutional Vital Signs, click to edit/add: Last Vital Signs Temp 98.2 F 01/24/25 09:24 Pulse 88 01/24/25 09:24 Resp 24 H 01/24/25 09:24 BP 131/72 01/24/25 09:24 Pulse Ox 94 L 01/24/25 09:43 O2 Del Method Room Air 01/24/25 09:43 Course Vital Signs Vital signs: Vital Signs Temperature 98.2 F 01/24/25 09:24 Pulse Rate 88 01/24/25 09:24 Respiratory Rate 24 H 01/24/25 09:24 Blood Pressure 131/72 01/24/25 09:24 Pulse Oximetry 94 L 01/24/25 09:24 Oxygen Delivery Method Room Air 01/24/25 09:24 Temperature 98.2 F 01/24/25 09:24 Pulse Rate 88 01/24/25 09:24 Respiratory Rate 24 H 01/24/25 09:24 Blood Pressure 131/72 01/24/25 09:24 Pulse Oximetry 94 L 01/24/25 09:43 Oxygen Delivery Method Room Air 01/24/25 09:43 MDM - Abdominal Pain MDM Narrative Medical decision making narrative: EKG showing sinus rhythm with a heart rate of [address] elevation or depression Patient here in the ER was not in any distress at any time her pulse ox was 96% when I measured it at bedside Patient was provided here with supportive care with Zofran and Toradol as well as Pepcid CBC chemistry as well as a chest x-ray showed no acute pathology The patient was able to tolerate p.o. intake here in the ER Flu test is negative the COVID is positive and the patient right now just continue supportive care for COVID-19 with instruction of hydration Patient will be discharged home with Zofran Lab Data Labs: Lab Results 01/24/25 01/24/25 Range/Units 09:35 09:36 WBC 8.1 (4.0-11.0) 10^3/uL RBC 4.33 (4.20-5.40) 10^6/uL Hgb 13.9 (12.0-16.0) g/dL Hct 42.3 (36.0-48.0) % MCV 97.7 (81.0-99.0) fL MCH 32.1 (26.7-34.0) pg MCHC 32.9 (29.9-35.2) g/dL RDW 13.9 (11.0-15.0) % Plt Count 245 (150-450) 10^3/uL MPV 10.7 (9.5-13.5) fL Neut % (Auto) 69.3 (43.0-75.0) % Lymph % (Auto) 19.6 L (20.5-60.0) % [place] % (Auto) 7.4 (1.7-12.0) % Eos % (Auto) 1.0 (0.9-7.0) % Baso % (Auto) 1.2 (0.2-2.0) % Neut # (Auto) 5.6 (1.4-6.5) 10^3/uL Lymph # (Auto) 1.6 (1.2-3.8) 10^3/uL [place] # (Auto) 0.6 (0.3-0.8) 10^3/uL Eos # (Auto) 0.1 (0.0-0.7) 10^3/uL Baso # (Auto) 0.1 (0.0-0.1) 10^3/uL Abs Immat Gran (auto) 0.12 H (0.00-0.03) 10^3/uL Imm/Tot Granulo (auto) 1.5 H (0.0-0.5) % Sodium 140 (136-145) mmol/L Potassium 4.2 (3.5-5.1) mmol/L Chloride 101 (98-107) mmol/L Carbon Dioxide 30.2 (21.0-32.0) mmol/L Anion Gap 13.0 BUN 14.0 (7.0-18.0) mg/dL Creatinine 0.82 (0.55-1.02) mg/dL Est GFR ( Amer) >60 (>=60 mL/min/1.73m^2) Est GFR (Non-Af Amer) >60 (>=60 mL/min/1.73m^2) BUN/Creatinine Ratio 17.1 Glucose 141 H (74-106) mg/dL Calcium 9.0 (8.5-10.1) mg/dL Total Bilirubin 0.3 (0.2-1.0) mg/dL AST 15 (15-37) U/L ALT 23 (14-59) U/L Alkaline Phosphatase 55 (46-116) U/L Troponin I High Sens 7.4 (4.0-51.3) pg/mL Total Protein 8.1 (6.4-8.2) g/dL Albumin 3.4 (3.4-5.0) g/dL Globulin 4.7 g/dL Albumin/Globulin Ratio 0.7 Influenza Type A Ag Negative Influenza Type B Ag Negative SARS-CoV-2 Ag (CV2AG) Positive A (NEGATIVE) Discharge Plan Discharge Chief Complaint: Abdominal Pain Clinical Impression: COVID-19 Patient Disposition: Home, Self-Care Time of Disposition Decision: 10:19 Condition: Good Prescriptions / Home Meds: New ondansetron 4 mg tablet,disintegrating 4 mg PO Q8H 2 Days Qty: 10 0RF Print Language: Jordanian Instructions: COVID-19 (Coronavirus Disease 2019) (ED) Referrals: MANUEL MORALES [Primary Care Provider, Family Practice] - 1 week
[2025-01-24 09:43] VITALS: O2SAT 94
[2025-01-24] MEDS: 0.9 % SODIUM CHLORIDE 1,000 ML 500 ML IV (09:46)
[2025-01-24 09:47] LABS: Hematocrit 42.3 % (36.0-48.0); Hemoglobin 13.9 g/dL (12.0-16.0); Immature Granulocytes Abs Auto 0.12 10^3/uL (0.00-0.03); Immature Granulocytes Pct Auto 1.5 % (0.0-0.5); Lymphocytes Absolute Auto 1.6 10^3/uL (1.2-3.8); Mean Corpuscular HGB Conc 32.9 g/dL (29.9-35.2); Mean Corpuscular Hemoglobin 32.1 pg (26.7-34.0); Mean Corpuscular Volume 97.7 fL (81.0-99.0); Platelet Count 245 10^3/uL (150-450); Red Blood Count 4.33 10^6/uL (4.20-5.40); White Blood Count 8.1 10^3/uL (4.0-11.0)
[2025-01-24] MEDS: FAMOTIDINE/PF 20 MG/2 ML VIAL IV (09:48)
[2025-01-24] MEDS: KETOROLAC TROMETHAMINE 30 MG/ML VIAL 15 MG IVP (09:49)
[2025-01-24 09:58] VITALS: PULSE 80
--- NOTE | 2025-01-24 10:00 | XR_ITS ---
The [place] [id number] Patient Name: DALJIT MCCALLUM MRN: [id number] date: 1980 Sex: F Assigned Patient Location: ER Current Patient Location: ED.MAIN Accession/Order Number: [id number] Exam Date: 01/24/2025 09:55 Report Date: 01/24/2025 10:11 At the request of: LAURA CODY MD Procedure: XR chest 1V PORTABLE AP ERECT CHEST 1100 hours CLINICAL HISTORY: Shortness of breath, abdominal pain, vomiting and diarrhea COMPARISON: 07/16/2022 Evaluation is slightly limited by large body habitus. The heart is within normal limits for size. There is no suspected vascular congestion. No consolidation is seen. There is no sizable effusion or pneumothorax. The osseous structures are intact. XR/XR chest 1V IMPRESSION: NO ACUTE FINDINGS Impression dictated by: Suzette Cardenas M.D. 01/24/2025 10:11 AM Dictation Location: [place] [address] Electronically authenticated by: [id number] Y Date: 01/24/2025 10:11
[2025-01-24 10:01] LABS: SARS-CoV-2 Ag POSITIVE (NEGATIVE)
[2025-01-24 10:03] LABS: Anion Gap 13.0
[2025-01-24 10:05] LABS: Alanine Aminotransferase 23 U/L (14-59); Albumin Globulin Ratio 0.7; Albumin Level 3.4 g/dL (3.4-5.0); Alkaline Phosphatase 55 U/L (46-116); Aspartate Amino Transferase 15 U/L (15-37); Blood Urea Nitrogen 14.0 mg/dL (7.0-18.0); Calcium 9.0 mg/dL (8.5-10.1); Carbon Dioxide 30.2 mmol/L (21.0-32.0); Chloride 101 mmol/L (98-107); Estimated GFR (African America >60 (>=60 mL/min/1.73m^2); Estimated GFR (Non-African Ame >60 (>=60 mL/min/1.73m^2); Globulin 4.7 g/dL; Glucose 141 mg/dL (74-106); Potassium 4.2 mmol/L (3.5-5.1); Sodium 140 mmol/L (136-145); Total Protein 8.1 g/dL (6.4-8.2)
--- OUTSIDE RECORDS SUMMARY | 2025-01-24 10:07 | XMS_ITS | Encounter Summary ---
Author Organization [facility] Address [address] [facility] [place] [address] Care Team Providers Care Rug Measurer Name Role Phone Delgado Valdez MD Primary Care Provider [phone] Delgado Valdez MD Unavailable [phone] Alize Figueredo ONLINE MARKETER Unavailable [phone] Encounter Details DateTypeDepartmentCare Team (Latest Contact Info)Qkvnnepngxd26/19/2025bstract [facility] [address] [place] [address] Alize Figueredo, ONLINE MARKETER [address] [place] [address] Social History Tobacco UseTypesPacks/DayYears UsedDateSmoking Tobacco: NeverSmokeless Tobacco: NeverAlcohol UseStandard Drinks/WeekCommentsNever0 (1 standard drink = 0.6 oz pure alcohol)AUDIT-CAnswerDate RecordedQ1: How often do you have a drink containing alcohol?Never04/28/2024Q2: How many drinks containing alcohol do you have on a typical day when you are drinking?Patient does not drink04/28/2024Q3: How often do you have six or more drinks on one occasion?Never04/28/2024PHQ-2 AnswerDate RecordedPatient Health Questionnaire-2 Kiapx26102/29/2024 CommentsNoSex and Gender InformationValueDate RecordedSex Assigned at BirthNot on fileLegal ErhVwvzbp20/15/2023 6:42 PM EDTGender IdentityNot on fileSexual OrientationNot on filedocumented as of this encounter Plan of Treatment DateTypeDepartmentCare Team (Latest Contact Info)Pjkkrhtedie99/11/2025 3:00 PM ESTOffice Visit [facility] [address] [place] [address] Patsy Craft, DO [address] [place] [address] 03/30/2025 1:30 PM ESTProcedure Visit [facility] [address] [place] [address] Raymon Pritchett DPM [address] [place] [address] [place] [address] 04/20/2025 9:00 AM ESTOffice Visit [facility] [place] [facility] [address] [place] [phone] Alize Figueredo, ONLINE MARKETER [address] [place] [address] 06/29/2025 10:00 AM EDTOffice Visit [facility] [place] [facility] [address] [place] [phone] Alize Figueredo, ONLINE MARKETER [address] [place] [phone] documented as of this encounter Visit Diagnoses Not on filedocumented in this encounter Additional Health Concerns AssessmentNoted TimePHQ-9 Depression Total Score: 4:00 PM EST documented as of this encounter Care Teams Team MemberRelationshipSpecialtyStart DateEnd Date Delgado Valdez MD [address] [place] [address] PCP - GeneralFamily Medicine07/09/22 Delgado Valdez MD [address] [place] [address] PCP - ACO [facility]08/05/22 Alize Figueredo NP [address] [place] [address] Nurse PractitionerFatempleton developmental center Oolrprse87/19/24documented as of this encounter
--- OUTSIDE RECORDS SUMMARY | 2025-01-24 10:07 | XMS_ITS | Clinical Summary ---
Author Organization [facility] Address [address] [place] [address] Care Team Providers Care Trust Mail Clerk Name Role Phone Delgado Valdez MD Primary Care Provider [phone] Delgado Valdez MD Unavailable [phone] Alize Figueredo NP Unavailable [phone] Allergies Active AllergyReactionsCriticalityNoted OxbdCaudwggfNkqfuwveKwxodwl71/28/2021 Medications MedicationSigDispense QuantityRefillsLast FilledStart DateEnd DateStatus sertraline (Zoloft) 100 MG tablet Indications:Moderate episode of recurrent major depressive disorder (HCC)Take 1 tablet (100 mg) by mouth Daily 90 tablet 4Active acetaminophen (Tylenol) 325 MG tablet Take 325 mg by mouth every 6 (six) hours if needed for mild pain5Active sertraline (Zoloft) 50 MG tablet Take 50 mg by mouth in the morning.5Active albuterol HFA 90 mcg/act inhaler Indications:Chronic obstructive pulmonary disease, unspecified COPD type (HCC) Inhale 2 puffs every 4 (four) hours if needed for wheezing or shortness of giprip725Active divalproex (Depakote) 250 MG EC tablet Indications:Seizure disorder (HCC)Take 1 tablet (250 mg) by mouth in the morning and 1 tablet (250 mg) before bedtime. Do not crush, chew, or split. 60 tablet 5Active oxygen (O2) gas Inhale 4 L/min shggeyubawnj86/30/2025Active nitrofurantoin, macrocrystal-monohydrate, (Macrobid) 100 MG capsule Indications:Recurrent UTITake 1 capsule (100 mg) by mouth at bedtime 90 capsule 305/07/034090/6Active polycarbophil (FiberCon) 625 MG tablet Indications:Slow transit constipation,Drug-induced constipationTake 1 tablet (625 mg) by mouth Daily 30 tablet 1107//914030/6Active levothyroxine (Synthroid, Levoxyl) 75 MCG tablet Indications:Hypothyroidism, unspecified typeTake 1 tablet (75 mcg) by mouth in the morning. Take before meals. 90 tablet 108502/6Active nystatin-triamcinolone (Mycolog II) cream Indications:Candidiasis of breastApply topically 2 (two) times a day as needed (rash) 30 g tive simvastatin (Zocor) 20 MG tablet Indications:Hyperlipidemia, unspecified hyperlipidemia typeTake 1 tablet (20 mg) by mouth 1 (one) time each day at the same time 90 tablet 309//641827/6Active Active Problems ProblemNoted DateDiagnosed DateAbdominal pain10/22/2023cute diastolic (congestive) heart mrmdbkj0510/22/2023cute on chronic respiratory failure with hypoxia and vyfshhuoqjm33/28/2024ounseling regarding advance directives and goals of care10/22/2023iabetes mellitus with kqcrsdahwiiir90/28/2024History of nkclduu2410/22/2023HTN (hypertension)10/22/2023Malfunction of continuous positive airway pressure (CPAP) or bilevel positive airway pressure (BPAP) machine 10/22/2023ltered mental lvqfac6506/16/20233213Nnvoopseriinla31/22/2024own syndrome ([facility])06/16/2023OPD (chronic obstructive pulmonary disease)07/25/2022 Hypoventilation associated with obesity vyegljos90/01/2023Mild intellectual vbkdesctoh10/01/2023Morbid (severe) obesity due to excess ywwqppad66/25/2021MI 39.0-39.9,adult12/11/20207379Osmvmlcpblaq89/20/2021ensorineural hearing loss, szirgtrhr97/18/2021Hearing loss02/08/2020Bilateral hearing loss02/08/2020 Diabetic wwmxtztxdezkqp21/06/9503Fsnnbufbpo16/02/2020Developmental delay 06/11/2019Allergic boqmnnib13/04/2019Slow transit irpmczducnsp61/04/2019Vitamin D /04/2019Insomnia related to another mental ootxcgeh25/01/2019 Generalized anxiety uybuirrf27/07/2018Other idiopathic scoliosis, site gzkjhltedzd77/07/2018Complete trisomy 21 syndrome ([facility])01/09/2017Obstructive sleep apnea /28/1797Cyvunnuqrygioy25/14/4076Uhhmcfgvkwwm64/14/2017 Psychogenic nonepileptic kovxndo3605/07/20169664Cgzwxxn66/14/2017Moderate episode of recurrent major depressive /27/2017Pure hhrwfpczigtclpizhswm38/27/2017 Resolved Problems ProblemNoted DateDiagnosed DateResolved DateChronic respiratory failure with hypoxia and gqbuaniqjov60DysuriaGross xazduisiw88/29/8000Rwimyazqjbvfev68/29/ute diastolic heart yahxjdo28/29/hronic obstructive pulmonary ksxxjxv9407/22/2024 07/22/2024Diabetes mellitus with geqfmorxbehl47/29/reakthrough dmxuzur47Sensorineural hearing loss07/22/ Jeumbksyblpf66Dissociative suyjumnv17 Encounters DateTypeDepartmentCare ReflXpkvhshfdwr45/19/2025 2:00 PM ESTProcedure Visit [facility] [address] [place] [address] Raymon Pritchett, URIEL Tinea pedis, unspecified laterality (Primary Dx); Pain due to onychomycosis of toenails of both feet; Type 2 diabetes mellitus without complication, without long-term current use of insulin ([facility])01/12/2025bstract [facility] [place] [address] [place] [address] Alize Figueredo, HVAC PROJECT ENGINEER 12/29/2024 10:00 AM ESTFollow-Up [facility] [place] [facility] [address] [place] [address] Alize Figueredo NP Chronic obstructive pulmonary disease, unspecified COPD type (HCC) (Primary Dx); IFG (impaired fasting glucose); Generalized anxiety disorder; Down syndrome ([facility])12/29/20240744Xvjfgd45/15/2025Telephone [facility] [address] [place] [address] Patsy Craft, 11/23/2024Refill [facility] [place] [facility] [address] [place] [address] Heidi Lund MA Hyperlipidemia, unspecified hyperlipidemia type11/11/2024bstract [facility] [place] [facility] [address] [place] [address] Alize Figueredo NP 11/10/2024 1:00 PM EDTOffice Visit [facility] [place] [facility] [address] [place] [address] Alize Figueredo NP Encounter for completion of form with patient (Primary Dx)11/10/2024amb flowsheet [facility] [place] [facility] [address] [place] [address] Alize Figueredo NP 11/10/20244132Orvgfr99/12/2025bstract [facility] [address] [place] [address] Patsy Craft, 11/03/2024 1:00 PM EDTOffice Visit [facility] [address] [place] [address] Dagmar Sales, ALEXSANDRA Sensorineural hearing loss, bilateral (Primary Dx)09/10/2025Bamboo flowsheet [facility] [address] [facility] [place] [address] Dagmar Sales, AUD from Last 3 Months Immunizations ImmunizationAdministration DatesNext GgwTJY0307/14/1987,12/31/1983,06/17/1983, 06/07/1983,09/17/1982Hep B, adult08/16/2002,07/15/2002HiB, raklhfnfyqi45/22/1985 Hib (HbOC)10/15/1984Influenza, High Dose Seasonal, Preservative Free12/29/2018, 12/20/2014Influenza, Injectable, MDCK, preservative free12/30/2019Influenza, Ibpknrrcwed51/31/2022,12/30/2019,12/30/2018,12/21/2014Influenza, injectable, MDCK, preservative free, rkgmovaaaqfh52/31/2022Influenza, injectable, quadrivalent, preservative free12/30/2018,12/21/2014MMR10/30/1994,06/17/1983, 06/07/1983OPV07/14/1987,12/31/1983,09/17/1982Pneumococcal Polysaccharide PPSV23 01/13/2019Tdap09/23/2017 Family History Medical HistoryRelationNameCommentsNo Known TfqgcdlqRlgczjurmsgevwzi9439Qjhx cancerMothershirleyRelationNameStatusCommentsBrotherjustinMothershirley Social History Tobacco UseTypesPacks/DayYears UsedDateSmoking Tobacco: NeverSmokeless [...] drinks on one occasion?Never04/28/2024PHQ-2AnswerDate RecordedPatient Health Questionnaire-2 Cjikv25402/29/2024CommentsNoSex and Gender InformationValueDate RecordedSex Assigned at BirthNot on fileLegal Sex Jedgqy1305/08/2022 6:42 PM EDTGender IdentityNot on fileSexual OrientationNot on file Last Filed Vital Signs Vital SignReadingTime TakenCommentsBlood Nuamkrhp812/80102/29/2024 9:53 AM EST Dirmo719712/29/2024 9:53 AM FYOWjahihvysjg92.3 ??C (97.4 ??F)12/29/2024 9:53 AM ESTRespiratory Wylf958503/14/2024 1:43 PM ESTOxygen Xeiwwoembb57%12/29/2024 9:53 AM ESTInhaled Oxygen Concentration--Oqdpox29.1 kg (170 lb)01/12/2025 1:43 PM EST Dzgsat150.2 cm (4' 8 )01/12/2025 1:43 PM ESTBody Mass Index38.1111 1:43 PM EST Plan of Treatment DateTypeDepartmentCare Team (Latest Contact Info)Datnjflunmg65/11/2025 3:00 PM ESTOffice Visit [facility] [address] [place] [phone] Patsy Craft, DO [address] [place] [address] 03/30/2025 1:30 PM ESTProcedure Visit [facility] [address] [place] [phone] Raymon Pritchett DPM [address] [address] 04/20/2025 9:00 AM ESTOffice Visit [facility] [address] [place] [address] Alize Figueredo, HVAC PROJECT ENGINEER [address] [place] [address] 06/29/2025 10:00 AM EDTOffice Visit [facility] [address] [place] [address] Alize Figueredo, HVAC PROJECT ENGINEER [address] [place] [address] Health MaintenanceDue DateLast DoneCommentsPap Smear2002HPV/Cotest 12/17/2011Diabetes: Urine Protein Ybkxgbmwk04/19/88630204/14/2024, 01/27/2023, 12/24/2021, Additional history existsMedicare Annual Wellness (AWV)04/14/2025 04/14/2024, 04/14/2024, 03/03/2023, Additional history existsDiabetes: Hemoglobin A1C/06/2024, 06/30/2024, 04/14/2024, Additional history existsInfluenza Vaccine (#1)61, 12/24/2021, 12/30/2019, Additional history existsPostponed from 10/25/2024 (Patient Refused)Diabetes: Retinopathy Ehkyaozbw43, 03/12/2022, 03/11/2022, Additional history existsPneumococcal Vaccine: Pediatrics (0 to 5 Years) and At-Risk Patients (6 to 64 Years)Mxqlawqdmddz41/20/2019COVID-19 VaccineDiscontinued 03/15/2020, 02/16/20207035MctbsvogfUyuzqcnqyxpl74/19/2025, 4Cervical Cancer ScreeningDiscontinued Procedures Procedure NamePriorityDate/TimeAssociated DiagnosisCommentsPOCT GLYCOSYLATED HEMOGLOBIN (HGB A1C)Yzcnkpt3912/29/2024 10:14 AM EST IFG (impaired fasting glucose) BI MAMMOGRAM SCREENING TOMOSYNTHESIS FVMLFJTMA96/19/2025 5:11 PM EST POCT HWQTMKVQVPCZLxgrdag36/19/2025 1:38 PM EST Type 2 diabetes mellitus without complication, unspecified whether assisted insulin use (HCC) DIABETIC RETINOPATHY SCREENING - OU - BOTH QAJVFrtuktu26/23/2024 3:11 PM EDTfrom Last 3 Months or Most Recently Relevant to Health Maintenance Results * POCT glycosylated hemoglobin (Hb A1C) docked device (12/29/2024 10:14 AM EST) ComponentValueRef RangeTest MethodAnalysis TimePerformed AtPathologist SignatureHemoglobin A1C5.8Specimen (Source)Anatomical Location / Laterality Collection Method / VolumeCollection TimeReceived TimeBloodVenous blood specimen / Yoekaqt5012/29/2024 10:14 AM EST Narrative Authorizing ProviderResult TypeResult StatusJekacey Figueredo NPPOINT OF CARE TEST ENTER/EDIT ORDERABLESFinal Result * Bilateral screening mammogram with tomosynthesis (04/14/2024 5:11 PM EST) Anatomical RegionLateralityModalityBreastBilateralMammographySpecimen (Source) Anatomical Location / LateralityCollection Method / VolumeCollection Time Received Time04/14/2024 5:11 PM EST Impressions 04/14/2024 5:16 PM EST NO MAMMOGRAPHIC EVIDENCE OF MALIGNANCY. ? ROUTINE FOLLOW-UP IS RECOMMENDED IN ONE YEAR. ? RESULT CODE: 1 ? Negative ? DENSITY CODE: 2 (approximately 25-50% glandular) ? FOLLOW UP: 1YR ? The false-negative rate of mammography is approximately 10-percent. ? Management of a palpable abnormality must be based on clinical grounds. ? Patient was entered into a reminder system with a target due date for the next mammogram. ? Impression dictated by: Deangelo Nunn M.D.04/14/2024 5:14 PM ? Dictation Location: [facility] ? Transcribed By: ? PWS ?04/14/24 1714 ? Dictated By: ?Deangelo Nunn MD ?04/14/24 1711 ? Signed By: <Electronically signed by Deangelo Nunn MD in OV> ? 04/14/24 1714 Narrative 04/14/2024 5:16 PM [facility] ?[facility] ?[address] ? [place] [address] ? Mammography Report ? Signed ? Patient: Graves,Kelsey L ?MR#: [id number] ?? [id number] ? : 1980 ?Acct:[id number] ? Age/Sex: 43 / F ?ADM Date: 04/14/24 ? Loc: [place] ?Room: ?Type: REG CLI ?? Attending Dr: Referral Self ?? Copies to: Delgado Valdez MD ?? SELF,REFERRAL ? Ordering Provider: SELF,REFERRAL ?? Date of Service: 04/14/24 ?? MM/MM screening mammo BI w/CAD: SCREENING ? CLINICAL DATA: ??Screening for malignancy. ? SCREENING MAMMOGRAM - FULL FIELD DIGITAL WITH TOMOSYNTHESIS AND CAD ? COMPARISON:2023 ? Tomosynthesis craniocaudal and mediolateral oblique views of both breasts were obtained using low- dose digital technique. ?? This examination was reviewed with the aid of CAD. ? The breast tissue is composed of scattered fibroglandular densities. ??There are no dominant masses, typically malignant calcifications or architectural distortion. ??There has been no significant interval change. ? MM/MM screening mammo BI w/CAD ?? Procedure Note Radiology, Radiologist, - 04/14/2024 [facility] [address] [place] [address] Mammography Report Signed Patient: Kelsey Graves LMR#: [id number] : 1980Acct:[id number] Age/Sex: 43 / FADM Date: 04/14/24 Loc: [place] Room:Type: [facility] Attending Dr: Referral Self Copies to: Delgado Valdez MD SELF,REFERRAL Ordering Provider: SELF,REFERRAL Date of Service: 04/14/24 MM/MM screening mammo BI w/CAD: SCREENING CLINICAL DATA: Screening for malignancy. SCREENING MAMMOGRAM - FULL FIELD DIGITAL WITH TOMOSYNTHESIS AND CAD COMPARISON:2023 Tomosynthesis craniocaudal and mediolateral oblique views of both breastswere obtained using low- dose digital technique. This examination was reviewed with the aid ofCAD. The breast tissue is composed of scattered fibroglandular densities.There are no dominant masses, typically malignant calcifications or architectural distortion. There hasbeen no significant interval change. MM/MM screening mammo BI w/CAD IMPRESSION: NO MAMMOGRAPHIC EVIDENCE OF MALIGNANCY. ROUTINE FOLLOW-UP IS RECOMMENDED IN ONE YEAR. RESULT CODE: 1 Negative DENSITY CODE: 2 (approximately 25-50% glandular) FOLLOW UP: 1YR The false-negative rate of mammography is approximately 10-percent. Management of a palpable abnormality must be based on clinical grounds. Patient was entered into a reminder system with a target due date for thenext mammogram. Impression dictated by: Deangelo Nunn M.D.04/14/2024 5:14 PM Dictation Location: [facility] Transcribed By: SYLVIA 04/14/241713 Dictated By: Deangelo Nunn MD 04/14/241710 Signed By: <Electronically signed by Deangelo Nunn MD in OV> 04/14/241713 Authorizing ProviderResult TypeResult StatusGeneric External Data ProviderIMG BI PROCEDURESFinal Result * POCT microalbumin manually resulted (04/14/2024 1:38 PM EST)ComponentValueRef RangeTest MethodAnalysis TimePerformed AtPathologist SignatureMICROALBUMIN, ZOPUN12GLH/CREAT RATIO<30URINE MSIOI579Inroajna (Source)Anatomical Location / LateralityCollection Method / VolumeCollection TimeReceived TimeUrine 04/14/2024 1:38 PM EST Narrative Authorizing ProviderResult TypeResult StatusAlize Figueredo NPPOINT OF CARE TEST ENTER/EDIT ORDERABLESFinal Result * Diabetic Retinopathy Screening - OU - Both Eyes (12/17/2023 3:11 PM EDT) Anatomical RegionLateralityModalityHeadOther Narrative Authorizing ProviderResult TypeResult StatusAlize Figueredo NPOPHTH PHOTOGRAPHY Final Result from Last 3 Months or Most Recently Relevant to Health Maintenance Insurance Care Teams Team MemberRelationshipSpecialtyStart DateEnd Date Delgado Valdez MD [address] [place] [facility] [place] [address] [facility] - [facility] Delgado Valdez MD [address] [place] [address] PCP - O [facility]08/05/22 Alize Figueredo NP [address] [place] [address] Nurse Pract[facility]erN[facility]01/13/24
--- OUTSIDE RECORDS SUMMARY | 2025-01-24 10:12 | XMS_ITS | CCD ---
Author Organization [facility] Care Team Providers Care Tuckpointer Name Role Phone DR DELGADO VALDEZ Admitting Unavailable VALDEZ, DR NATARAJAN Primary Care Unavailable VALDEZ, DR NATARAJAN Consulting Unavailable VALDEZ, DR NATARAJAN Attending Unavailable NEMO CARDEANS Attending Unavailable NEMO CARDENAS Admitting Unavailable NEMO CARDENAS Primary Care Unavailable NEMO CARDENAS Consulting Unavailable MD Delgado Valdez Primary Care Provider DO Swapnil Quigley Emergency Provider Steve Deleon MD Abel Admit Provider MD Adrienne Abel Attending Provider [phone] MD Tiesha De Attending Provider Salina Etienne Other Provider Unavailable DO Riddhi Mcdonald Other Provider MD Terrance Williamson Other Provider DO Prince Villarreal Other Provider Qian, ANP- Estephania Other Provider DO Bam Stack Other Provider POLINA Ugalde Other Provider MARTHA Franco-Suellen Rodriguez Other Provider POLINA Welsh Other Provider MD Nabil Holman Other Provider MD Aryan Lindsay Other Provider [phone] MD Anabelle Blandon Other Provider DO Valdemar Petit Other Provider [phone] MD Mariza Tesfaye Other Provider MD Alexander Summers Other Provider MD Bam Belle Other Provider DO Tor Pepper Other Provider MD Raul Kwong Other Provider MD Delgado Valdez Primary Care Provider POLINA Welsh Attending Provider [phone] MD Aryan Lindsay Attending Provider MD Cornell Gupta Emergency Provider Aryan Lindsay Unavailable [phone] MD Delgado Valdez Primary Care Provider SHILO Kennedy Attending Provider MD Alexander Barrera Emergency Provider [phone] MD Cornell Gupta Emergency Provider [phone] Delgado Valdez MD Primary Care Provider Delgado Valdez MD Unavailable POLINA Ford Emergency Provider MD Delgado Valdez Primary Care Provider SHILO Kennedy Attending Provider [phone] MD Alexander Barrera Emergency Provider [phone] MD Cornell Gupta Emergency Provider [phone] POLINA Ford Emergency Provider [phone] DO Sherrie Silveira Emergency Provider [phone] DELGADO VALDEZ Primary Care Physician MD Delgado Valdez Primary Care Provider [phone] MD Alexander Barrera Emergency Provider [phone] MD Bigg Schulz Admit Provider DO Albino Morelos Other Provider DO Nat Sage Other Provider MD Hugh Craft Attending Provider DO Cas Springer Other Provider POLINA Olmos Other Provider UnavailPOLINA Kelly Other Provider MD Chivo Sidhu Other Provider MD Delgado Valdez Attending Provider [phone] MD Delgado Valdez Primary Care Provider ELVIE Cervantes Emergency Provider MD Delgado Valdez Primary Care Provider MD Delgado Valdez Primary Care Provider MD Delgado Valdez Attending Provider DO Swapnil Quigley Emergency Provider UnancMD Delgado Mendoza Primary Care Provider José Miguel SPRING, Delgado Primary Care Provider [phone] José Miguel SPRING, Delgado Attending Provider Nat Gutierrez MD Emergency Provider Marcia SAMPLE COLOR MAKER, Nemo Unavailable Terell THOMAS, Alize Thompson Unavailable José Miguel SPRING, Delgado Primary Care Provider José Miguel SPRING, Delgado Referring Provider Self, Referral Attending Provider Unavailable Joseph Vaughn DO Emergency Provider Zee Choudhury DO Emergency Provider [phone] José Miguel SPRING, Delgado Primary Care Provider José Miguel SPRING, Delgado Referring Provider Self, Referral Attending Provider Unavailable Joseph Vaughn DO Emergency Provider Zee Choudhury DO Emergency Provider [phone] Lolis Ludwig DO Emergency Provider KELSEY CISNEROS Attending Unavailable DELGADO VALDEZ Referring Unavailable José Miguel SPRING, Delgado Primary Care Provider [phone] Alize Arrington APRN Attending Provider Brook Yu Attending Provider Unavailable Nat Gutierrez MD Emergency Provider Sherrie Silveira DO Emergency Provider Alexander Barrera MD Emergency Provider Romulo FISH-SECURITY PROFESSIONAL-CShavon Attending Provider Joey WILLETT, Alexis Attending Unavailable Delgado Valdez MD Primary Care Unavailable Amy Vail Unavailable Alexis Cook DDS Unavailable Unavailable Valdez, Delgado Primary Care Unavailable Alexander Barrera Admitting Unavailable Alexander Barrera Attending Unavailable Valdez, Delgado Primary Care Unavailable Sherrie Silveira Admitting Unavailable Sherrie Silveira Attending Unavailable Valdez, Delgado Primary Care Unavailable Nat Gutierrez Admitting Unavailable Nat Gutierrez Attending Unavailable Valdez, Delgado Primary Care Unavailable Lolis Ludwig Admitting Unavailable Lolis Ludwig Attending Unavailable Kei Zee L Admitting Unavailable Zee Choudhury Attending Unavailable Valdez, Delgado Primary Care Unavailable Keister Joseph A Admitting Unavailable Keister Joseph A Attending Unavailable Valdez, Delgado Primary Care Unavailable Nat Gutierrez Admitting Unavailable Nat Gutierrez Attending Unavailable Valdez, Delgado Primary Care Unavailable Valdez, Delgado Primary Care Unavailable Valdez, Delgado Attending Unavailable Valdez, Delgado Admitting Unavailable Alize Arrington Attending Unavailable Valdez, Delgado Primary Care Unavailable LauseAlize Admitting Unavailable Self, Referral Admitting Unavailable Self, Referral Attending Unavailable Valdez, Delgado Primary Care Unavailable Valdez, Delgado Referring Unavailable Valdez, Delgado Primary Care Unavailable Shavon Sebastian Admitting Unavailable Shavon Sebastian Attending Unavailable ALIZE ARRINGTON Attending Unavailable ALIZE ARRINGTON Attending Unavailable RAYMON PEPPER Attending Unavailable VALDEZ DELGADO A Attending Unavailable BRISEYDA FRANKS Attending Unavailable ALIZE ARRINGTON Attending Unavailable PATSY CRAFT Attending Unavailable ALIZE ARRINGTON Referring Unavailable RAYMON PEPPER Attending Unavailable DAGMAR SALES Attending Unavailable VALDEZ, DELGADO A Referring Unavailable SILVIA RAMIREZ Attending Unavailable ALIZE ARRINGTON Attending Unavailable PATSY CRAFT Attending Unavailable ALIZE ARRINGTON Attending Unavailable BRISEYDA FRANKS Attending Unavailable RAYMON PEPPER Attending Unavailable RAYMON PEPPER Attending Unavailable DAGMAR SALES Attending Unavailable ALIZE ARRINGTON Attending Unavailable ALIZE ARRINGTON Attending Unavailable Allergies Allergy ClassificationReported Allergen(s)Allergy TypeDate of OnsetReaction(s) Facility (4 sources)diazePAMDrug Znhtyhf55-63-7192Dhrncku, Unknown ReactionF[facility] (20 sources)DiazepamAllergy to sdyjllzvq67-74-3016AwaroyvXQF[facility] (2 sources)diazapamAllergy to tnkboqiwb78-23-9138Vdrapmr ReactionFlower Hospital (1 source)diazePAMDrug Btcqphe33-54-7613EddawdcooFlower Hospital Repository Medications Current Medications MedicationDrug Class(es)DatesSig (Normalized)Sig (Original)[id number] 200 actuat albuterol 0.09 mg/actuat metered dose inhaler (20 sources)beta2-Adrenergic AgonistStart: 04-01-2024 End: 39-37-7511sijk 2 puff(s) by inhalation every four hours for wheezing albuterol HFA 90 mcg/act inhaler Indications: Chronic obstructive pulmonary disease, unspecified COPD type (HCC) Inhale 2 puffs every 4 (four) hours if needed for wheezing or shortness of breath 04/14/2024 ActiveStart: 04-05-2023 End: 53-11-2346jkts 1 puff(s) by inhalation every four hours as neededAlbuterol Sulfate (Proair Hfa) 90 mcg/actuation HFA aerosol inhaler Discontinued 2 PUFF INHALATION Q4H as needed for shortness of breath March 03, 2024 9:09am October 07, 2024 10:52amStart: 67-30-0589Kpbvhhcbw Sulfate (Proair Hfa) 90 mcg/actuation HFA aerosol inhaler Active 1 INH INHALATION Q4H April 05, 2023 1:00amStart: 54-51-5485cwnbkqkiw HFA 90 mcg/act inhaler every 4 (four) hours. 06/18/2022 Activeamoxicillin 500 mg oral tablet (8 sources)Penicillin-class AntibacterialStart: 10-13-2024 End: 61-78-7875bixd 1 tablet by mouth in the morningamoxicillin (Amoxil) 500 MG tablet Indications: Non-recurrent acute suppurative otitis media of both ears without spontaneous rupture of tympanic membranes Take 1 tablet (500 mg) by mouth in the morning and 1 tablet (500 mg) before bedtime. Do all this for 10 days. 20 tablet 10/13/2024 10/23/2024 Activeamoxicillin 875 mg / clavulanate 125 mg oral tablet (1 source)Penicillin-class AntibacterialStart: 85-77-8010xnls 1 tablet by mouth twice dailyAmoxicillin-Pot Clavulanate Active 1 TAB PO Twice daily 11 11June 28, 2022 12:00ambetamethasone 0.5 mg/ml / clotrimazole 10 mg/ml topical cream (20 sources)Azole Antifungal, CorticosteroidStart: 10-14-2024 End: 66-47-1061gmrohzadxfeu-betamethasone (Lotrisone) cream Indications: Tinea pedis, unspecified laterality Apply1 application topically in the morning and 1 application before bedtime. 45 g 1 10/14/2024 11/13/2024 ActiveStart: 01-15-2024 Start: 07-29-2023 End: 34-81-8773efcleqkdjbhq-betamethasone (Lotrisone) cream Indications: Tinea pedis, unspecified laterality Apply1 application topically in the morning and 1 application before bedtime. 45 g 1 08/19/2024 09/18/2024 ActiveStart: 04-08-2023 clotrimazole-betamethasone (Lotrisone) cream Indications: Tinea Apply 1 application to affected area topically in the morning and 1 application before bedtime. 45 g 0 04/08/2023 ActiveStart: 02-27-2023 End: 71-82-3018kppxlcgclwcf-betamethasone (Lotrisone) cream Apply 1 application to affected area topically in the morning and 1 application before bedtime. 0 02/27/2023 04/08/2023 DiscontinuedStart: 12-17-2020 End: 39-94-8259Pczemtvqcnaz-Betamethasone 1-0.05 % Cream Discontinued 1 APPLIC TOPICAL Twice daily December 17, 2020 12:00am June 22, 2022 8:28pmcalcium polycarbophil 625 mg oral tablet (20 sources)Start: 06-11-2023 End: 32-30-9862ultl 1 tablet by mouth once dailypolycarbophil (FiberCon) 625 MG tablet Indications: Slow transit constipation , Drug-induced constipation Take 1 tablet (625 mg) by mouth Daily 30 tablet 11 08/26/2024 08/26/2025 ActiveStart: 12-28-2018 End: 87-26-6432rvcm 1 tablet by mouth once dailyCalcium Polycarbophil 625 mg tablet Discontinued 625 MG PO Daily December 28, 2018 1:00am March 13, 2023 10:32amcetirizine hydrochloride 10 mg oral tablet (20 sources)Histamine-1 Receptor AntagonistStart: 03-18-2023 End: 30-55-4474qfzwrvkukw (ZyrTEC) 10 MG chewable tablet Indications: Allergic rhinitis, unspecified seasonality, unspecified trigger Chew 1 tablet (10 mg) in the morning. 90 tablet 1 03/18/2023 09/14/2023 ActiveStart: 12-28-2018 End: 48-25-6813xjwo 1 tablet by mouth once dailyCetirizine 10 mg tablet Discontinued 10 MG PO Daily December 28, 2018 1:00am June 18, 2023 6:34pm Cetirizine HCl ActiveCranberry (20 sources)Non-Standardized Food Allergenic Extract, Non-Standardized Plant Allergenic ExtractStart: 50-10-9086ydpc 1 capsule by mouth once dailyStart: 26-07-0304tdam 1 capsule by mouth once dailyCranberry 500 mg capsule Active 500 MG PO Daily October 05, 2024 12:00am administer with a meal Complies with drug therapyStart: 12-28-2018 End: 01-53-7864yawk 1 capsule by mouth once daily as needed for muscle spasms Cranberry 500 mg Capsule Discontinued 500 MG PO Daily as needed for Bladder Spasms December 28, 2018 1:00am March 13, 2023 10:32amStart: 12-28-2018 End: 66-32-2666fqav 1 capsule by mouth once daily as needed for muscle spasms Cranberry 500 mg Capsule Discontinued 500 MG PO Daily as needed for Bladder Spasms December 28, 2018 12:00am March 13, 2023 9:32amStart: 12-28-2018 End: 79-62-6448oltu 500 mg by mouth once dailyCranberry Discontinued 500 MG PO Daily December 28, 2018 1:00am March 13, 2023 10:32amStart: 12-28-2018 End: 29-32-3686euci 500 mg by mouth once dailyCranberry Discontinued 500 MG PO Daily December 28, 2018 12:00am March 13, 2023 9:32amStart: 95-55-1946rkbl 500 mg by mouth once dailyCranberry Active 500 MG PO Daily December 28, 2018 12:00amStart: 60-03-4008qbvd 500 mg by mouth once dailyCranberry Active 500 MG PO Daily December 28, 2018 1:00amCranberry 405 MG Orally ActiveCranberry- Vitamin C-Vitamin E (Cranberry Plus Vitamin C) 4200-20-3 MG-MG-UNIT capsule (15 sources)Start: 37-56-2726Yclmbvbbx-Vitamin C-Vitamin E (Cranberry Plus Vitamin C) 4200-20-3 MG-MG-UNIT capsule 1 capsule 1 (one) time each day at the same time. 05/14/2021 ActiveStart: 42-10-2335Bmsiasfeh-Vitamin C-Vitamin E (Cranberry Plus Vitamin C) 4200-20-3 MG-MG-UNIT capsule 1 capsule 1 (one) time each day at the same time. 0 05/14/2021 ActiveFiber (3 sources)Start: 80-94-6223wurs 1 tablet by mouth once dailyFiber Active 1 TAB PO Daily April 05, 2023 1:00amStart: 34-91-8721skdr 1 tablet by mouth once dailyFiber Active 1 TAB PO Daily April 05, 2023 12:00amFiber Therapy 500 MG (2 sources)Fiber Therapy 500 MG 2 tablets as needed Orally Six times a day ActiveFloranex (2 sources)Floranex Activefluconazole 150 mg oral tablet (5 sources)Azole AntifungalStart: 10-13-2024 End: 68-52-6360rtmpxoootau (Diflucan) 150 MG tablet Indications: Vaginal yeast infection Take 1 tablet (150 mg) bymouth See administration instructions for 1 day Take one tab now. Repeat in 7 days if symptoms persist. 2 tablet 10/13/2024 10/14/2024 Activefluticasone propionate 0.05 mg/actuat metered dose nasal spray (20 sources)CorticosteroidStart: 03-18-2023 End: 92-22-3613tnsb 1 spray(s) nasal route once dailyfluticasone (Flonase) 50 MCG/ACT nasal spray Indications: Allergic rhinitis, unspecified seasonality, unspecified trigger Administer 1 spray into each nostril 1 (one) time each day at the same time 16 g 5 06/03/2023 ActiveStart: 12-17-2020 End: 02-93-3636Bgrlmohivqr Propionate 50 mcg/actuation [place],Suspension Discontinued 1 SPRAY INTRANASAL Daily December 17, 2020 12:00am June 18, 2023 6:34pmGlucose Blood (GLUCOMETER ELITE TEST ) (15 sources)Start: 18-68-7078Sddmtdp Blood (GLUCOMETER ELITE TEST ) 1 (one) time each day at the same time. 06/24/2022 ActiveStart: 58-43-2760Oszufhf Blood (GLUCOMETER ELITE TEST ) 1 (one) time each day at the same time. 0 06/24/2022 Activelevothyroxine sodium 0.075 mg oral tablet (20 sources)l-ThyroxineStart: 12-28-2018 End: 83-45-5352ohve 1 tablet by mouth before mealtimelevothyroxine (Synthroid, Levoxyl) 75 MCG tablet Indications: Hypothyroidism, unspecified type Take1 tablet (75 mcg) by mouth in the morning. Take before meals. 90 tablet 1 10/13/2024 04/11/2025 Activetake 1 tablet by mouth every twenty-four hours Levothyroxine Sodium 75 MCG 1 tablet Orally Once a day Activeloratadine 10 mg oral tablet (4 sources)Start: 50-29-0667hako 1 tablet by mouth once dailymagnesium hydroxide 80 mg/ml oral suspension (20 sources)Start: 80-46-3653wwytecrpd hydroxide (Milk of Magnesia) 400 MG/5ML suspension Take 15 mL by mouth 06/11/2023 ActiveStart: 06-11-2023 End: 27-46-3231vdix 1 mL by mouth twice daily as needed for constipationStart: 57-58-2812nlyc 1 mL by mouth twice daily as needed for constipationMagnesium Hydroxide (Milk Of Magnesia) 400 mg/5 mL suspension Active 15 ML PO Twice daily as neededfor constipation June 11, 2023 12:00am when Lactulose not working and Fiber Therapy not workingStart: 06-11-2023 End: 14-50-3860fhyg 1 mL by mouth twice daily as needed for constipation Magnesium Hydroxide (Milk Of Magnesia) 400 mg/5 mL suspension Discontinued 15 ML PO Twice daily as needed for constipation June 11, 2023 12:00am June 18, 2023 6:34pm when Lactulose and Fiber Therapy not workingStart: 61-21-4483oxjw 1 mL by mouth twice daily as needed for constipationMagnesium Hydroxide (Milk Of Magnesia) 400 mg/5 mL suspension Active 15 ML PO Twice daily as neededfor constipation June 10, 2023 11:00pm when Lactulose not working and Fiber Therapy not workingStart: 06-11-2023 End: 55-29-9077rpsg 1 mL by mouth twice daily as needed for constipation Magnesium Hydroxide (Milk Of Magnesia) 400 mg/5 mL suspension Discontinued 15 ML PO Twice daily as needed for constipation June 10, 2023 11:00pm June 18, 2023 5:34pm when Lactulose and Fiber Therapy not workingStart: 47-08-0297pvrk 1 mL by mouth twice dailyMagnesium Hydroxide (Milk Of Magnesia) 400 mg/5 mL suspension Active 15 ML PO Twice daily June 11, 2023 12:00am when Lactulose not working and Fiber Therapy not workingStart: 06-11-2023 End: 17-54-2710yxjn 1 mL by mouth twice dailyMagnesium Hydroxide (Milk Of Magnesia) 400 mg/5 mL suspension Discontinued 15 ML PO Twice daily June 11, 2023 12:00am June 18, 2023 6:34pm when Lactulose and Fiber Therapy not workingStart: 12-17-2020 End: 90-80-9282ikmx 1 mL by mouth once dailyMagnesium Hydroxide (Milk Of Magnesia) 400 mg/5 mL Suspension Discontinued 15 ML PO Daily December 17, 2020 12:00am April 05, 2023 3:30pm HOLD LOOSE STOOLStart: 12-17-2020 End: 24-59-0851tojp 1 mL by mouth once dailyMagnesium Hydroxide (Milk Of Magnesia) 400 mg/5 mL Suspension Discontinued 15 ML PO Daily December 17, 2020 12:00am April 05, 2023 3:30pm HOLD LOOSE STOOLStart: 12-17-2020 End: 69-55-0477fmqb 1 mL by mouth once dailyMagnesium Hydroxide (Milk Of Magnesia) 400 mg/5 mL Suspension Discontinued 15 ML PO Daily 2020 11:00pm April 05, 2023 2:30pm HOLD LOOSE STOOLStart: 69-82-2598oaqn 1 mL by mouth twice dailyMagnesium Hydroxide (Milk Of Magnesia) 400 mg/5 mL Suspension Active 15 ML PO Twice daily 2020 11:00pmStart: 23-38-6058ynyj 1 mL by mouth twice dailyMagnesium Hydroxide (Milk Of Magnesia) 400 mg/5 mL Suspension Active 15 ML PO Twice daily December 17, 2020 12:00amStart: 10-06-7163awfn 15 mL by mouth once dailymagnesium hydroxide (Milk of Magnesia) 400 MG/5ML suspension 15 ml Orally daily, hold for loose stools 0 07/12/2014 ActiveMelatonin (2 sources)Melatonin Oalyyg33 hr metFORMIN hydrochloride 500 mg extended release oral tablet (20 sources)BiguanideStart: 06-03-2023 End: 72-98-2424lzzf 1 tablet by mouth once dailymetFORMIN XR (Glucophage-XR) 500 MG 24 hr tablet Indications: Class 2 obesity Take 1 tablet (500 mg) by mouth 1 (one) time each day at the same time 90 tablet 1 06/03/2023 ActiveStart: 04-05-2023 End: 33-14-0460omhw 1 tablet by mouth once daily in the eveningMetformin 500 mg tablet Discontinued 500 MG PO Every evening April 05, 2023 1:00am May 6:34pm FreeTextSi tablet with a meal Orally Once a day; Note: Source Status: Taking; Provider: Neftali Baeza ( )Start: 06-22-2022 End: 22-97-8079fhnc 1 tablet by mouth once daily in the eveningMetformin 500 mg tablet extended release 24 hr Discontinued 500 MG PO Every evening June 22, 2022 12:00am March 13, 2023 10:32amtake 1 tablet by mouth every twenty-four hoursmetFORMIN HCl 500 MG 1 tablet with a meal Orally Once a day ActiveMilk of Magnesia (2 sources)Milk of Magnesia ActiveMulti Adult Gummies - (2 sources)Multi Adult Gummies - Orally Activenitrofurantoin, macrocrystals 25 mg / nitrofurantoin, monohydrate 75 mg oral capsule (20 sources)Nitrofuran AntibacterialStart: 06-30-2024 End: 62-63-3538lqgs 1 capsule by mouth at bedtimenitrofurantoin, macrocrystal- monohydrate, (Macrobid) 100 MG capsule Indications: Recurrent UTI Take1 capsule (100 mg) by mouth at bedtime 90 capsule 3 06/30/2024 06/30/2025 ActiveStart: 04-28-2024 End: 67-22-6126obeh 1 capsule by mouth in the morningnitrofurantoin, macrocrystal-monohydrate, (Macrobid) 100 MG capsule Indications: Dysuria , FrequentUTI Take 1 capsule (100 mg) by mouth in the morning and 1 capsule (100 mg) before bedtime. Do all this for 7 days. 14 capsule 04/28/2024 05/05/2024 Activenystatin 755880 unt/ml topical cream (20 sources)Polyene AntifungalStart: 04-14-2024 End: 20-06-2832ezftamjp (Mycostatin) cream Indications: Candidiasis of breast Apply 1 application topically if needed (as needed for yeast under bilateral breast and skin folds.) for up to 14 days 04/14/2024 04/28/2024 ActiveStart: 11-12-7903Jpfdf: 03-24-2023 End: 94-17-8213gggmjjoi (Mycostatin) cream Indications: Intertriginous candidiasis Apply 1 application topically every 12 (twelve) hours 30 g 0 03/24/2023 04/23/2023 ActiveStart: 12-17-2020 End: 33-13-9933Enxfrcwt (Nyamyc) 100,000 unit/gram Powder Discontinued 1 APPLIC TOPICAL Twice daily December 17, 2020 12:00am April 05, 2023 3:30pm nystatin (Mycostatin) cream Apply 1 application topically every 12 (twelve) hours Activenystatin 279663 unt/ml / triamcinolone acetonide 1 mg/ml topical cream (17 sources)Polyene Antifungal, CorticosteroidStart: 39-86-6616ywakfwhi- triamcinolone (Mycolog II) cream Indications: Candidiasis of breast Apply topically 2 (two) times a day as needed (rash) 30 g 1 10/13/2024 ActiveOxygen (20 sources)Start: 27-10-7237ppyyvp (O2) gas Inhale 4 L/min continuously 06/23/2024 ActiveProbiotic Product (PROBIOTIC PO) (15 sources)Start: 15-41-5507Mjwdwphnm Product (PROBIOTIC PO) 1 (one) time each day at the same time. 02/21/2016 ActiveStart: 48-32-9611Vioodbepu Product (PROBIOTIC PO) 1 (one) time each day at the same time. 0 02/21/2016 Active sertraline 50 mg oral tablet (20 sources)Serotonin Reuptake InhibitorStart: 04-05-2024 End: 04-37-4974jkld 1 tablet by mouth in the morningsertraline (Zoloft) 50 MG tablet Take 50 mg by mouth in the morning. 04/05/2024 ActiveStart: 01-13-2024 End: 93-21-0037ouml 1 tablet by mouth once dailysertraline (Zoloft) 100 MG tablet Indications: Moderate episode of recurrent major depressive disorder (HCC) Take 1 tablet (100 mg) by mouth Daily 90 tablet 01/13/2024 ActiveStart: 11-10-2023 End: 33-88-9113gfnp 1 tablet by mouth once dailysertraline (Zoloft) 25 MG tablet Indications: Moderate episode of recurrent major depressive disorder (CMS/HCC) Take 1 tablet (25 mg) by mouth Daily 90 tablet 01/13/2024 04/14/2024 Discontinued (Therapy completed)Start: 08-07-2023 End: 04-86-9648ieub 1 tablet by mouth once dailysertraline (Zoloft) 100 MG tablet Indications: Moderate episode of recurrent major depressive disorder (CMS/HCC) Take 1 tablet (100 mg) by mouth Daily 90 tablet 08/07/2023 Active Start: 08-07-2023 End: 87-28-9392amdd 1 tablet by mouth once dailysertraline (Zoloft) 25 MG tablet Indications: Moderate episode of recurrent major depressive disorder (HCC) (CMS/HCC) Take 1 tablet (25 mg) by mouth Daily 90 tablet 08/07/2023 ActiveStart: 03-71-9580Qcevy: 54-00-5347Wrufavzwho 100 mg Tablet Active 125 MG PO Daily 2020 11:00pmStart: 33-06-0727qyys 125 mg by mouth once daily Sertraline Active 125 MG PO Daily December 17, 2020 12:00amStart: 12-14-2019 take 100 mg by mouth once dailySertraline Active 100 MG PO Daily December 17, 2020 12:00amsimvastatin 20 mg oral tablet (20 sources)HMG-CoA Reductase InhibitorStart: 10-21-2023 End: 76-56-8741sohw 1 tablet by mouth once dailysimvastatin (Zocor) 20 MG tablet Indications: Hyperlipidemia, unspecified hyperlipidemia type Take 1 tablet (20 mg) by mouth 1 (one) time each day at the same time 90 tablet 3 11/23/2024 11/18/2025 ActiveStart: 03-18-2023 End: 82-53-6386noxq 1 tablet by mouth once daily in the eveningSimvastatin 20 mg tablet Discontinued 20 MG PO Every evening April 05, 2023 1:00am May 6:34pmStart: 12-28-2018 End: 00-54-0709amng 1 tablet by mouth at bedtimeSimvastatin 20 mg tablet Discontinued 20 MG PO Bedtime December 28, 2018 1:00am March 13, 2023 10:33amtake 1 tablet by mouth every twenty-four hoursSimvastatin 10 MG 1 tablet in the evening Orally Once a day Activesulfamethoxazole 800 mg / trimethoprim 160 mg oral tablet (2 sources)Dihydrofolate Reductase Inhibitor Antibacterial, Sulfonamide AntimicrobialStart: 05-25-2024 End: 14-69-3022naun 1 tablet by mouth once in the morning, then take 1 tablet by mouth once at bedtimesulfamethoxazole-trimethoprim (Bactrim DS) 800-160 MG per tablet Indications: Frequent UTI , Dysuria Take 1 tablet by mouth in the morning and 1 tablet before bedtime. Do all this for 7 days. 14 tablet 05/25/2024 06/01/2024 ActivetraZODone hydrochloride 50 mg oral tablet (20 sources)Serotonin Reuptake InhibitorStart: 78-71-9046jmfJOQxrc (Desyrel) 50 MG tablet Indications: Primary insomnia Take 1 tablet (50 mg) by mouth as needed at bedtime for sleep 30 tablet 2 04/09/2023 ActiveStart: 03-18-2023 End: 34-84-5022lbge 1 tablet by mouth at bedtime as needed for sleepTrazodone 150 mg tablet Discontinued 150 MG PO Bedtime as needed for sleep April 05, 2023 1:00am June 18, 2023 6:34pmdivalproex sodium 500 mg delayed release oral tablet (20 sources)Mood Stabilizer, Anti-epileptic AgentStart: 40-92-3269stlb 1 tablet by mouth twice dailyStart: 06-23-2024 End: 94-41-8105auph 1 tablet by mouth in the morningdivalproex (Depakote) 250 MG EC tablet Indications: Seizure disorder (HCC) Take 1 tablet (250 mg) by mouth in the morning and 1 tablet (250 mg) before bedtime. Do not crush, chew, or split. 60 tablet2 06/23/2024 ActiveVitamin D3 2000 UNIT (2 sources)Vitamin D3 2000 UNIT Orally Active Completed/Discontinued Medications MedicationDrug Class(es)DatesSig (Normalized)Sig (Original)acetaminophen 325 mg oral tablet (20 sources)Start: 10-04-2024 End: 86-54-8280nwtb 2 tablets by mouth every six hours as needed for pain Acetaminophen (Tylenol) 325 mg tablet Discontinued 650 MG PO Every 6 hours as needed for pain 60 5 October 04, 2024 12:00am October 05, 2024 8:52amStart: 80-63-0766vkeg 1 tablet by mouth every six hours as needed for painacetaminophen (Tylenol) 325 MG tablet Take 325 mg by mouth every 6 (six) hours if needed for mild pain 04/01/2024 ActiveStart: 71-38-0651duyy 2 capsules by mouth every six hours as needed for painStart: 62-48-4027qgwc 650 mg by mouth every six hours Acetaminophen Active 650 MG PO Q6H December 28, 2018 1:00amacetaminophen (Tylenol) 325 MG tablet every 6 (six) hours. ActiveAcetaminophen Active azithromycin 250 mg oral tablet (20 sources)Macrolide AntimicrobialStart: 12-30-2018 End: 15-94-6030bsax 2 tablets by mouth once dailyAzithromycin 250 mg Tablet Discontinued 500 MG PO Daily 06 28December 30, 2018 1:00am November 3:42pmStart: 12-30-2018 End: 93-18-2212buhx 500 mg by mouth once dailyAzithromycin Discontinued 500 MG PO Daily 06 28December 30, 2018 1:00am December 17, 2020 3:42pmBlood Glucose Monitoring Suppl (True Metrix Meter) w/Device kit (20 sources)Start: 02-03-2023 End: 82-58-3180Hwhwu Glucose Monitoring Suppl (True Metrix Meter) w/Device kit 02/03/2023 07/22/2024 Discontinued (Med list cleanup)Start: 23-29-4475Fvlqm Glucose Monitoring Suppl (True Metrix Meter) w/Device kit 02/03/2023 Active Start: 29-35-5588Mrvvl Glucose Monitoring Suppl (True Metrix Meter) w/Device kit USE TO TEST BLOOD SUGAR 02/03/2023 ActiveStart: 48-49-0044Bseoq Glucose Monitoring Suppl (True Metrix Meter) w/Device kit USE TO TEST BLOOD SUGAR 0 02/03/2023 Activecefuroxime 500 mg oral tablet (20 sources)Cephalosporin AntibacterialStart: 12-30-2018 End: 82-73-1872nifp 1 tablet by mouth twice dailyCefuroxime Axetil 500 mg tablet Discontinued 500 MG PO Twice daily 11 28December 30, 2018 1:00am December 17, 2020 3:42pmcephalexin 500 mg oral capsule (20 sources)Cephalosporin AntibacterialStart: 03-18-2023 End: 23-86-1619kxon 1 capsule by mouth twice dailyCephalexin 500 mg capsule Discontinued 500 MG PO Twice daily 10 29January 15, 2024 1:00am September 22, 2024 8:23amStart: 03-18-2023 End: 46-68-0012vzrd 1 capsule by mouth three times dailyCephalexin 500 mg capsule Discontinued 500 MG PO Three times daily 13 09April 15, 2023 1:00am June 18, 2023 6:34pmStart: 03-13-2023 End: 52-66-4094kaeu 1 capsule by mouth three times weeklyCephalexin 500 mg capsule Discontinued 500 MG PO 3 Times a week March 13, 2023 1:00am June 18, 2023 6:34pm MWF TO PREVENT UTIStart: 12-17-2020 End: 94-15-8484rdnl 1 capsule by mouth three times weeklyCephalexin 500 mg capsule Discontinued 500 MG PO 3 Times a week December 17, 2020 12:00am June 2:20pm Fridaystart: 12-17-2020 End: 08-44-9804mrpp 1 capsule by mouth every eight hoursCephalexin 500 mg capsule Discontinued 500 MG PO Q8H 13 09December 17, 2020 12:00am June 22, 2022 8:27pmtake 1 capsule by mouth every weekCephalexin 500 MG 1 capsule Orally 3 days q week Activecholecalciferol 0.05 mg oral capsule (20 sources)Vitamin DStart: 12-28-2018 End: 68-03-5808werz 1 capsule by mouth once dailyCholecalciferol (Vitamin D3) (Vitamin D3) 2,000 unit Capsule Discontinued 2000 UNIT PO Daily December 28, 2018 1:00am June 18, 2023 6:34pmclonazePAM 0.5 mg oral tablet (20 sources)BenzodiazepineStart: 03-13-2023 End: 30-00-3428zsii 1 tablet by mouth twice dailyClonazepam 0.5 mg tablet Discontinued 0.5 MG PO Twice daily March 13, 2023 1:00am April 05, 2023 3:30pmStart: 12-28-2018 End: 98-11-7976ddzi 0.25 mg by mouth twice dailyClonazepam 0.5 mg tablet Discontinued 0.25 MG PO Twice daily 0 December 30, 2018 1:59pm December 17, 2020 3:42pmStart: 12-28-2018 End: 27-80-6659iraf 0.25 mg by mouth twice dailyClonazepam Discontinued 0.25 MG PO Twice daily 0 December 30, 2018 1:59pm December 17, 2020 3:42pmclonazePAM (KlonoPIN) 0.5 MG tablet every 12 (twelve) hours. Activetake 1 tablet by mouth every twelve hoursclonazePAM 0.5 MG 1 tablet Orally Twice a day ActiveCranberry Plus Vitamin C (20 sources)Start: 03-13-2023 End: 42-65-6215phxq 1 tablet by mouth once dailyCranberry Plus Vitamin C Discontinued 1 TAB PO Daily March 13, 2023 12:00am June 18, 2023 5:34pm 4200-20-3 ZA-GH-JPQJRqxst: 03-13-2023 End: 52-90-0622foem 1 tablet by mouth once dailyCranberry Plus Vitamin C Discontinued 1 TAB PO Daily March 13, 2023 1:00am June 18, 2023 6:34pm 4200-20-3 VP-EI-UFSWYywah: 94-37-0087rjct 1 tablet by mouth once dailyCranberry Plus Vitamin C Active 1 TAB PO Daily March 13, 2023 1:00am 4200-20-3 MR-QY-KHAVNnfbh: 51-50-5155qyos 1 tablet by mouth once dailyCranberry Plus Vitamin C Active 1 TAB PO Daily March 13, 2023 12:00am 4200-20-3 MG-MG-UNIT Cranberry-Vit C-Lactobacillus (RA Cranberry Supplements) 450-30 MG tablet (13 sources)Start: 04-28-2024 End: 10-68-0510tdok 1 tablet by mouth once dailyCranberry-Vit C-Lactobacillus (RA Cranberry Supplements) 450-30 MG tablet Indications: Dysuria , Frequent UTI Take 1 tablet by mouth Daily 90 tablet 3 04/28/2024 07/22/2024 Discontinued (Med list cleanup)Start: 04-28-2024 End: 86-60-4879inxk 1 tablet by mouth once dailyCranberry-Vit C-Lactobacillus (RA Cranberry Supplements) 450-30 MG tablet Indications: Dysuria , Frequent UTI Take 1 tablet by mouth Daily 90 tablet 3 04/28/2024 07/27/2024 Active cyclobenzaprine hydrochloride 10 mg oral tablet (18 sources)Muscle RelaxantStart: 05-06-2023 End: 87-62-1055ttxx 1 tablet by mouth three times daily as needed for muscle spasmsCyclobenzaprine 10 mg tablet Discontinued 10 MG PO Three times daily as needed for Muscle Spasm May 06, 2023 12:00am June 18, 2023 6:34pm12 hr guaiFENesin 600 mg extended release oral tablet (20 sources)Start: 59-48-7255cpim 1200 mg by mouth twice dailyGuaifenesin Active 1200 MG PO Twice daily April 05, 2023 1:00amStart: 04-05-2023 End: 76-92-5334wbij 1 tablet by mouth twice daily as needed for congestion Guaifenesin 600 mg tablet extended release 12hr Discontinued 1200 MG PO Twice daily as needed for congestion April 05, 2023 1:00am January 15, 2024 1:41pmStart: 06-28-2022 End: 50-49-4972wyut 1 tablet by mouth twice daily, then take 1 tablet by mouth every twelve hoursGuaifenesin (Mucus Relief Er) 1,200 mg tablet extended release 12hr Discontinued 1200 MG PO Twice daily June 28, 2022 12:00am March 13, 2023 10:32amhydrOXYzine hydrochloride 50 mg oral tablet (20 sources)AntihistamineStart: 06-22-2022 End: 80-69-7579udlx 1 tablet by mouth at bedtimeHydroxyzine Hcl 50 mg tablet Discontinued 50 MG PO Bedtime April 05, 2023 1:00am June 18, 2023 6:34pm ibuprofen 800 mg oral tablet (18 sources)Nonsteroidal Anti-inflammatory DrugStart: 05-06-2023 End: 02-26-9948kcnb 1 tablet by mouth three times daily as needed for pain Ibuprofen 800 mg tablet Discontinued 800 MG PO Three times daily as needed for Pain May 06, 2023 12:00am June 18, 2023 6:34pmammonium lactate 120 mg/ml topical lotion (20 sources)Start: 06-22-2022 End: 07-48-4227Tqoulofb Lactate 12 % lotion Discontinued 1 APPLIC TOPICAL Twice daily June 22, 2022 12:00am June 18, 2023 6:34pmStart: 12-28-2018 End: 13-17-9977Qietykwx Lactate 12 % lotion Discontinued 1 APPLIC TOPICAL Twice daily December 28, 2018 1:00am December 17, 2020 3:42pmammonium lactate (Lac- Hydrin) 12 % lotion apply 1 application to affected area twice a day for 30 days ActiveAmmonium Lactate ActiveLactobacillus Acidoph-L.Bulgar (Floranex) 1 million cell Tablet (20 sources)Start: 12-28-2018 End: 01-32-2330Jivizxwvhzesw Acidoph-L.Bulgar (Floranex) 1 million cell Tablet Discontinued 1 TAB PO Daily December 28, 2018 12:00am June 18, 2023 5:34pm Start: 12-28-2018 End: 30-36-0530Kewlylbaqmcbo Acidoph-L.Bulgar (Floranex) 1 million cell Tablet Discontinued 1 TAB PO Daily December 28, 2018 1:00am June 18, 2023 6:34pm Start: 04-89-3021Atycnfewxfvvo Acidoph-L.Bulgar (Floranex) 1 million cell Tablet Active 1 TAB PO Daily December 12:00amStart: 88-38-6778Tvxtqujnepuot Acidoph-L.Bulgar (Floranex) 1 million cell Tablet Active 1 TAB PO Daily December 1:00amLactobacillus Acidoph-L.Bulgar (Floranex) 1 million cell tablet (11 sources)Start: 06-11-2023 End: 70-67-2294Oxizsirqfijiv Acidoph-L.Bulgar (Floranex) 1 million cell tablet Discontinued 1 TAB PO Daily June 10, 2023 11:00pm June 18, 2023 5:34pm Start: 06-11-2023 End: 84-79-7737Psevkuxktzkkc Acidoph-L.Bulgar (Floranex) 1 million cell tablet Discontinued 1 TAB PO Daily June 11, 2023 12:00am June 18, 2023 6:34pm lactobacillus acidophilus 0.05 mg / lactobacillus bulgaricus 0.05 mg oral tablet (14 sources)Start: 12-28-2018 End: 92-01-3032Wcrtwsxvshafc Acidoph-L.Bulgar (Floranex) 1 million cell tablet Discontinued 1 TAB PO Daily June 11, 2023 12:00am June 18, 2023 6:34pm Start: 05-06-8830Jeuxnnfpclfff tablet 1 (one) time each day at the same time. 0 04/22/2018 Activelactulose 667 mg/ml oral solution (20 sources)Osmotic LaxativeStart: 12-28-2018 End: 44-61-7074wuuc 1 mL by mouth twice dailyLactulose 10 gram/15 mL solution Discontinued 30 ML PO Twice daily December 28, 2018 1:00am June 18, 2023 6:34pmtake 15 mL by mouth once dailyLactulose 10 GM/15ML 15 ml Orally Once a day ActivelevETIRAcetam 750 mg oral tablet (20 sources)Start: 01-15-2024 End: 93-42-5935ivaz 1 tablet by mouth twice dailyLevetiracetam (Keppra) 750 mg tablet Discontinued 750 MG PO Twice daily 13 12January 15, 2024 1:00am October 05, 2024 8:53amStart: 06-28-2022 End: 78-15-8114jejh 1 tablet by mouth twice dailyLevetiracetam 500 mg Tablet Active 500 MG PO Twice daily June 27, 2022 11:00pmtake 1 tablet by mouth every twelve hoursKeppra 500 MG 1 tablet Orally every 12 hrs Activelidocaine 0.05 mg/mg medicated patch (5 sources)Antiarrhythmic, Amide Local AnestheticStart: 10-04-2024 End: 81-48-3236ggqmp 1 dose topically once dailyLidocaine (Lidoderm) 5 % adhesive patch,medicated Discontinued 1 PATCH TOPICAL Daily 15 October 04, 2024 12:00am October 05, 2024 8:08pm leave on most painful area for up to 12 hrsMultivitamin (One-A-Day Essential) Tablet (20 sources)Start: 12-28-2018 End: 24-80-6403sbgb 1 tablet by mouth once dailyMultivitamin (One-A-Day Essential) Tablet Discontinued 1 TAB PO Daily December 28, 2018 12:00am June 18, 2023 5:34pmStart: 12-28-2018 End: 55-56-8471vqkm 1 tablet by mouth once dailyMultivitamin (One-A-Day Essential) Tablet Discontinued 1 TAB PO Daily December 28, 2018 1:00am June 18, 2023 6:34pmStart: 03-91-2964swli 1 tablet by mouth once dailyMultivitamin (One-A-Day Essential) Tablet Active 1 TAB PO Daily December 28, 2018 12:00am Start: 83-10-3259kcjn 1 tablet by mouth once dailyMultivitamin (One-A-Day Essential) Tablet Active 1 TAB PO Daily December 28, 2018 1:00amPediatric Multiple Vitamins (CHEWABLE CRISELDA CHILDRENS PO) (12 sources) End: 62-46-2204Jkuzjpbrd Multiple Vitamins (CHEWABLE CRISELDA CHILDRENS PO) 1 (one) time each day at the same time. 01/28/2024 Discontinued (Therapy completed) Pediatric Multiple Vitamins (CHEWABLE CRISELDA CHILDRENS PO) 1 (one) time each day at the same time. ActivePediatric Multiple Vitamins (CHEWABLE CRISELDA CHILDRENS PO) 1 (one) time each day at the same time. 0 ActiveProbiotic (20 sources)Start: 03-13-2023 End: 84-44-4622dmmi 1 tablet by mouth once dailyProbiotic Discontinued 1 TAB PO Daily March 13, 2023 1:00am April 05, 2023 3:30pmStart: 03-13-2023 End: 45-85-5181hqfk 1 tablet by mouth once dailyProbiotic Discontinued 1 TAB PO Daily March 13, 2023 12:00am April 05, 2023 2:30pmPsyllium (20 sources)Start: 03-13-2023 End: 34-17-0146xumo 1 tablet by mouth once dailypsyllium Discontinued 1 TAB PO Daily March 13, 2023 1:00am April 05, 2023 3:30pm 650Start: 03-13-2023 End: 07-75-6325beoi 1 tablet by mouth once dailypsyllium Discontinued 1 TAB PO Daily March 13, 2023 12:00am April 05, 2023 2:30pm 650 Problems Active Problems Problem ClassificationProblemDateDocumented DateEpisodic/ChronicAnxiety disorders (20 sources)Generalized anxiety disorder; Translations: [Generalized anxiety disorder]Onset: 738290-19-6906KagygsePkblrgqzpv pneumonitis; food/vomitus (20 sources)Aspiration pneumonia; Translations: [Pneumonitis due to inhalation of food and vomit]18-54-2171SxllxjydSlnasnf obstructive pulmonary disease and bronchiectasis (20 sources)Chronic obstructive lung disease; Translations: [Chronic obstructive pulmonary disease, unspecified]Onset: 07-25-2022 Resolved: 222258-46-0266LdlbogbJsverybslx heart failure; nonhypertensive (20 sources)Congestive heart failure; Translations: [Heart failure, unspecified] Onset: 10-22-2023 Resolved: 423831-17-5150WxcnfawNmgtuzpgyenwd disorders (20 sources)Mild intellectual disability; Translations: [Mild intellectual disabilities]Onset: 438538-20-8401EiuzrczHxcjzuam mellitus with complications (20 sources)Diabetes mellitus due to underlying condition with diabetic neuropathy, unspecified; Translations: [Diabetic mononeuropathy]Onset: 12-31-2019 Resolved: 435489-15-2372CuzejxqWhqmeyxr mellitus without complication (20 sources)Diabetes mellitus; Translations: [Type 2 diabetes mellitus without complications]47-76-8064ZetjgmkYasgyfka mellitus without complication (2 sources)Impaired fasting glycemia; Translations: [Impaired fasting glucose] 53-12-4330ArldziorJjvlfzpnj congenital anomalies (20 sources)Enlargement of tongue; Translations: [Macroglossia]Onset: 03-15-2020 68-92-5553LjpcgpwOqfvnnxqj of lipid metabolism (20 sources)Pure hypercholesterolemia, unspecified; Translations: [Pure hypercholesterolemia]Onset: 94-35-2676TvhtaexYlxyusqf; convulsions (20 sources)Seizure; Translations: [Unspecified convulsions]Onset: 10-05-2024 62-99-7497TdiuyngqDvqpkboxg hypertension (20 sources)Hypertensive disorder; Translations: [Essential (primary) hypertension]Onset: 10-22-2023 Resolved: 154663-68-6779ZbgtjyuIztve of unknown origin (20 sources)Fever; Translations: [Fever, unspecified]65-57-9171Closuyta Miscellaneous mental health disorders (20 sources)Dissociative convulsions; Translations: [Conversion disorder with seizures or convulsions]Onset: 05-07-2016 Resolved: 209091-00-8409JurvwyyPvpd disorders (20 sources)Recurrent major depressive episodes, moderate ; Translations: [Major depressive disorder, recurrent, moderate]Onset: hronic Mycoses (20 sources)Dermatophytosis; Translations: [Dermatophytosis, unspecified] 39-92-2691SuvgojfoOhiyyphvtwt deficiencies (20 sources)Vitamin D deficiency, unspecified; Translations: [Vitamin D deficiency]Onset: 433072-20-9946SdxmgucParod aftercare (4 sources)Patient encounter status; Translations: [Encounter for therapeutic drug level monitoring]38-97-2340UokdaiqnJhohp aftercare (2 sources)Post-discharge follow-up; Translations: [Encounter for follow-up examination after completed treatment for conditions other than malignant neoplasm]11-33-0619SubhyeunPhcij aftercare (1 source)Encounter for therapeutic drug level monitoring; Translations: [Encounter for therapeutic drug level monitoring]Onset: 92-68-7969IgavnfamXbyzs bone disease and musculoskeletal deformities (20 sources)Idiopathic scoliosis; Translations: [Other idiopathic scoliosis, site unspecified]Onset: 855473-67-6864BfcuqwxOgihp circulatory disease (20 sources)Pulmonary venous congestion; Translations: [Other specified symptoms and signs involving the circulatory and respiratory systems]50-38-9713Smslggxa Other circulatory disease (2 sources)Other specified symptoms and signs involving the circulatory and respiratory systems; Translations:[Pulmonary congestion and hypostasis] 47-50-2684OqmjyjvqHcaps congenital anomalies (20 sources)Anomaly of chromosome pair 21; 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, unspecified]Onset: 842524-89-1970VtlicbdExrbe congenital anomalies (6 sources)Down syndrome, unspecified; Translations: [Down's syndrome]06-28-2022 ChronicOther congenital anomalies (20 sources)Complete trisomy 21 syndrome; 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, unspecified]Onset: 723930-63-2447JdboibfOsyrs ear and sense organ disorders (20 sources)Hearing loss; Translations: [Unspecified hearing loss, unspecified ear]Onset: 503542-92-9057DtcuupwDqhkv ear and sense organ disorders (20 sources)Sensorineural hearing loss, bilateral; Translations: [Sensorineural hearing loss, bilateral]Onset: 787204-08-9676IfdtgloVcgtd ear and sense organ disorders (20 sources)Bilateral hearing loss; Translations: [Unspecified hearing loss, bilateral]Onset: 668688-07-4393UwtqzeeFpicc female genital disorders (5 sources)Cyst of uterine adnexa; Translations: [Unspecified condition associated with female genital organs and menstrual cycle]41-46-1175Wrrnrebk Other gastrointestinal disorders (4 sources)Drug-induced constipation; Translations: [Drug induced constipation] 33-24-3400RzdzanitDkcbe inflammatory condition of skin (20 sources)Rosacea; Translations: [Rosacea, unspecified]Onset: 05-07-2016 38-14-7945JuiwnerNticd inflammatory condition of skin (1 source)Intertrigo; Translations: [Erythema intertrigo]69-66-0110WvfngvmrYijqs inflammatory condition of skin (1 source)Erythema intertrigo; Translations: [Other specified erythematous conditions]56-31-4535OycovsdvYcetv injuries and conditions due to external causes (18 sources)Minor head injury; Translations: [Unspecified injury of head, initial encounter]01-04-8088PghwjbuuAnbkx lower respiratory disease (20 sources)Hypoxemia; Translations: [Hypoxemia]47-88-0639ItmfduvqCazdn lower respiratory disease (20 sources)Productive cough ; Translations: [Productive cough]12-28-2018 EpisodicOther lower respiratory disease (20 sources)Hypoxia; Translations: [Hypoxemia]06-91-2784QyykmquvIigpy lower respiratory disease (3 sources)Hypoxemia; Translations: [Hypoxemia]75-27-8571VjajpkrbTtkbj lower respiratory disease (20 sources)Pneumonitis; Translations: [Other disorders of lung]06-23-2022 EpisodicOther lower respiratory disease (1 source)Acute pulmonary edema; Translations: [Acute pulmonary edema]Onset: 84-43-1186EblsasqrSpfpt lower respiratory disease (4 sources)Other disorders of lung; Translations: [Pneumonia, organism unspecified]02-88-1267LwocgnaaZiwtn nervous system disorders (20 sources)Narcolepsy; Translations: [Narcolepsy without cataplexy]Onset: 138645-73-6440LsodxczIhvze nervous system disorders (20 sources)Disorder of brain; Translations: [Encephalopathy, unspecified]Onset: 082809-30-1768PfgmqmaHuvsq nervous system disorders (1 source)H/O: respiratory disease; Translations: [Personal history of other diseases of the nervous system and sense organs]89-54-6500PuqnituhPoxqi nervous system disorders (1 source)Other abnormal involuntary movements; Translations: [Other abnormal involuntary movements]Onset: 77-36-6037MjmzzcguRmbaa nutritional; endocrine; and metabolic disorders (3 sources)Body mass index (BMI) 38.0-38.9, adult; Translations: [BODY MASS INDEX BMI 38.0-38.9 ADULT]Onset: 76-69-3188WhkhyrrCbxdy nutritional; endocrine; and metabolic disorders (1 source)Body mass index (BMI) 36.0-36.9, adult; Translations: [BODY MASS INDEX BMI 36.0-36.9 ADULT]Onset: 17-72-8263OtnnlflVkuon nutritional; endocrine; and metabolic disorders (5 sources)Body mass index (BMI) 39.0-39.9, adult; Translations: [Body Mass Index 39.0-39.9, adult]Onset: 864747-22-3841MgeiajtQlzpe nutritional; endocrine; and metabolic disorders (20 sources)Obesity; Translations: [Obesity, unspecified]34-12-1986EywqwowNqkec nutritional; endocrine; and metabolic disorders (2 sources)Obesity, unspecified; Translations: [Obesity, unspecified]06-28-2022 ChronicOther nutritional; endocrine; and metabolic disorders (2 sources)Childhood obesity; Translations: [Obesity, unspecified]ChronicOther nutritional; endocrine; and metabolic disorders (2 sources)Obese; Translations: [Obesity, unspecified]ChronicOther nutritional; endocrine; and metabolic disorders (2 sources)Obese class II; Translations: [Obesity, unspecified]Onset: 12-11-2020 30-43-0628VjugopmHsilf nutritional; endocrine; and metabolic disorders (20 sources)Alveolar hypoventilation; Translations: [Morbid (severe) obesity with alveolar hypoventilation]Onset: 548183-53-5552SjikcyyAmelh nutritional; endocrine; and metabolic disorders (20 sources)Obesity caused by energy imbalance; Translations: [Morbid (severe) obesity due to excess calories]Onset: 686204-19-6626MxjuuxkEjtyu nutritional; endocrine; and metabolic disorders (20 sources)Body mass index 30+ - obesity; Translations: [Body mass index (BMI) 39.0-39.9, adult]Onset: 998983-51-7719PmuvnejWglco screening for suspected conditions (not mental disorders or infectious disease) (7 sources)Blood chemistry abnormal; Translations: [Other specified abnormal findings of blood chemistry]Onset: 97-40-6210PcipjhivXjanj upper respiratory disease (20 sources)Allergic rhinitis; Translations: [Allergic rhinitis, unspecified] Onset: 493440-22-6798YsplusvWnkdfp media and related conditions (2 sources)Acute suppurative otitis media without spontaneous rupture of ear drum; Translations: [Acute suppurative otitis media without spontaneous rupture of ear drum, bilateral]23-76-5403PwgudijbZgmzletiv (except that caused by tuberculosis or sexually transmitted disease) (20 sources)Community acquired pneumonia; Translations: [Pneumonia, unspecified organism]16-28-3207KwprpdkiYhksexdp codes; unclassified (20 sources)Obstructive sleep apnea syndrome; Translations: [Obstructive sleep apnea (adult) (pediatric)]Onset: 140745-05-5595CztpjkzHqadhsyc codes; unclassified (6 sources)Obstructive sleep apnea (adult) (pediatric); Translations: [Obstructive sleep apnea (adult)(pediatric)]27-85-6421OmrrlqnDdnqtaat codes; unclassified (2 sources)Transient alteration of awareness; Translations: [Transient alteration of awareness]99-47-9378FlvzcwemUgppwxpqiyn failure; insufficiency; arrest (adult) (20 sources)Acute on chronic hypercapnic respiratory failure; Translations: [Acute and chronic respiratory failure with hypercapnia]Onset: 06-11-2023 Resolved: 766555-87-1952FfgyfvjDfipchqfudi failure; insufficiency; arrest (adult) (20 sources)Acute respiratory failure; Translations: [Acute respiratory failure with hypoxia]76-88-9056HdhdppriWjtsadr and strains (18 sources)Lumbar sprain; Translations: [Sprain of ligaments of lumbar spine, initial encounter]06-94-3762GmquayznOkpthnywxqk injury; contusion (20 sources)Contusion of knee; Translations: [Contusion of unspecified knee, initial encounter]01-17-1252WxaalaxuGxqsjdg disorders (20 sources)Hypothyroidism, unspecified; Translations: [Hypothyroidism]Onset: 919592-67-4433FyoocktAicyfolnavon (1 source)Obesity, class 2; Translations: [Obesity, class 2]Onset: 08-25-2024 Urinary tract infections (20 sources)Urinary tract infectious disease; Translations: [Urinary tract infection, site not specified]Onset: 233472-97-8502Tmzlcezj Past or Other Problems Problem ClassificationProblemDateDocumented DateEpisodic/ChronicAbdominal pain (20 sources)Abdominal pain; Translations: [Unspecified abdominal pain]Onset: 519912-70-2066PsuujgpoJuxdzwrixvddbd/social admission (20 sources)Other reduced mobility; Translations: [Impaired mobility and activities of daily living]Onset: 218396-30-6291JskekgjqKjheyasfyrohz of surgical procedures or medical care (20 sources)Complication of medical care; Translations: [Other specified complications of surgical and medical care, not elsewhere classified, initial encounter]Onset: 10-22-2023 Resolved: 196923-68-7145NumkfnlrPtctygtt; convulsions (20 sources)Seizure disorder; Translations: [Epilepsy, unspecified, not intractable, without status epilepticus]Onset: 07-22-2024 Resolved: 320507-43-7024HimzyylPwhfpfqokzdut symptoms and ill-defined conditions (20 sources)Dysuria; Translations: [Dysuria]Onset: 07-22-2024 Resolved: 467722-70-3863OctvdvvbAngt disorders (20 sources)Mood disordersOnset: 605042-62-7226Fzynw ear and sense organ disorders (20 sources)Sensorineural hearing loss; Translations: [Unspecified sensorineural hearing loss]Onset: 07-22-2024 Resolved: [id number] gastrointestinal disorders (20 sources)Constipation; Translations: [Constipation, unspecified]Onset: 180594-42-9923NduuqqijEclfk gastrointestinal disorders (20 sources)Slow transit constipation; Translations: [Slow transit constipation] Onset: 564442-38-4534PqrnttrvDyocf nutritional; endocrine; and metabolic disorders (20 sources)Developmental delay; Translations: [Unspecified lack of expected normal physiological development in childhood]Onset: EpisodicResidual codes; unclassified (6 sources)History of clinical finding in subject; Translations: [Personal history of other specified conditions]Onset: 396365-98-2870Lnwonsas Residual codes; unclassified (20 sources)Personal history of other specified conditions; Translations: [Personal history of other specified diseases]Onset: EpisodicResidual codes; unclassified (20 sources)Altered mental status; Translations: [Altered mental status, unspecified]Onset: 118091-85-8579MhbhbsitWmxgfmammdw; intervertebral disc disorders; other back problems (1 source)Dorsalgia, unspecified; Translations: [Dorsalgia, unspecified]Onset: 90-59-4711Tcjoblfz Results Test NameValueInterpretationReference ZbaaiRzjwnxhbYdB2b (Bld) [Mass fraction]on 87-32-9081Tzkqvkrnjijcep and review of laboratory resultsNormalNONM Healthcare NOMS HealthcareLaboratory - Hematology and Cell countson 70-61-6334YgJ6m (Bld) [Mass fraction]5.8 %NOMS HealthcareBacteria identified Cx Nom (U)on 10-15-2024 NOMS HealthcareNo Panel Informationon 31-54-3317Ubtsfclew at: [facility] [id number] Software Support Engineer: Iggy Warren PhD, Phone: [phone] Culture Clean Catch Reflexon 08-94-1889Xcngiwoa identified Cx Nom (U)No growthNOMS Healthcare NOMS HealthcareUrine cultureon 26-09-3979Caziosxa identified Cx Nom (U)Final reportNONM HealthcareUrinalysis macro (dipstick) panel (U)on 10-13-2024 Bilirubin, UANegativeNegative - 4(70) +++ mg/dLNOMS HealthcareBlood, UANegative Negative - 50 Elder/mcLNOMS HealthcareClarity, UAClearNOMS HealthcareColor, UA YellowNOMS HealthcareGlucose, UATraceNegative - 2000(110) ++++ mg/dLNOMS HealthcareInterpretation and review of laboratory resultsAbnormalNONM Healthcare Ketones, UAPositiveNegative - 160(16) ++++ mg/dLNOMS HealthcareLeukocytes, UA PositiveNegative - 500+++ Fili/mcLNOMS HealthcareNitrite, UANegativeNegative - PositiveNOMS HealthcarepH, UA65 - 9NOMS HealthcareProtein, UANegativeNegative - 2000(20) ++++ mg/dLNOMS HealthcareSpec Grav, UA1.021 - 1.03N[facility]S Healthcare Urobilinogen, UA0.20.2 - 12 mg/dLNOMS HealthcareNOMS HealthcareValproate [Mass/volume] in Serum or PlasmaOrdered By: Shavon Sebastian on 16-71-9093Xmbaksgyo [Mass/Vol]63.2 ug/mL50.0-100.0Flower HospitalComment on above:Last dose: -Valproic Acid (in house)on 25-24-0036Zxtgaohk Acid (in house) 63.2Irvdqt38.0-100.0[facility] Physician GroupComment on above:Result Comment: Last dose: - PERFORMED BY: [place] [address] PATHOLOGIST HEDDLE MACHINE OPERATOR SHAWN KIM M.D.Performed By: #### VALP #### [facility] [address] [place] [address] USAAlanine aminotransferase [Enzymatic activity/volume] in Serum or PlasmaOrdered By: Sherrie Silveira on 25-25-6432WKP [Catalytic activity/Vol]15 U/LNormal7-52Flower HospitalComment on above: Performed By: #### HS TROP #### [facility] [address] [place] [address] USAAlbumin [Mass/volume] in Serum or Plasma by Bromocresol green (BCG) dye binding methoOrdered By: Sherrietravon Silveira on 15-41-4954Yjusxlo BCG dye [Mass/Vol]3.7 g/dL3.5-5.7FMercy HospitalAlkaline phosphatase [Enzymatic activity/volume] in Serum or PlasmaOrdered By: Sherrietravon Silveira on 51-84-1312LGP [Catalytic activity/Vol]48 U/MItpymb79-908OoklxtvynFlower HospitalComment on above:Performed By: #### HS TROP #### [facility] [address] [id number] USAAspartate aminotransferase [Enzymatic activity/volume] in Serum or PlasmaOrdered By: Sherrie Silveira on 24-79-5258QQV [Catalytic activity/Vol]13 U/ZEqlwen67-23EytwiegdbFlower HospitalComment on above: Performed By: #### HS TROP #### [address] [address] USABasic Metabolic Panelon 94-50-8920Fubowfafat Clr Calc Hrxzqmjc19.85NormalThBear Lake Memorial Hospital Physician GroupComment on above:Result Comment: PERFORMED BY: [place] [address] PATHOLOGIST HEDDLE MACHINE OPERATOR SHAWN KIM M.D.Performed By: #### HS TROP #### [address] [address] USAGFR/1.73 sq M.predicted MDRD (S/P/Bld) [Vol rate/Area] mL/min/{1.73_m2}NormalThe [facility] Physician GroupComment on above:Performed By: #### HS TROP #### [address] [address] USABasophils [#/volume] in Blood by Automated countOrdered By: Alexander Barrera on 07-82-7972Mohytitqi (Bld) [#/Vol]0.0 10*3/uLNormal0.0-0.2 Flower HospitalComment on above:Result Comment: PERFORMED BY: [address] [address] PATHOLOGIST HEDDLE MACHINE OPERATOR SHAWN KIM M.D.Performed By: #### HS TROP #### [place] [address] USABasophils [#/volume] in Blood by Automated countOrdered By: Sherrie Silveira on 36-17-8915Xczbuqikd (Bld) [#/Vol]0.1 10*3/uLNormal0.0-0.2 Flower HospitalComment on above:Result Comment: PERFORMED BY: [place] [address] PATHOLOGIST HEDDLE MACHINE OPERATOR SHAWN KIM M.D.Performed By: #### HS TROP #### [place] [address] USABasophils/100 leukocytes in Blood by Automated count Ordered By: Alexander Barrera on 35-44-7212Wnnoghdue/100 WBC (Bld)0.4 %Normal.Flower HospitalComment on above:Performed By: #### HS TROP #### [place] [address] USABasophils/100 leukocytes in Blood by Automated count Ordered By: Sherrie Silveira on 45-85-8077Tnfrkyvrn/100 WBC (Bld)1.4 %Normal. Flower HospitalComment on above:Performed By: #### HS TROP #### [place] [address] USABilirubin.total [Mass/volume] in Serum or PlasmaOrdered By: Sherrie Silveira on 84-97-6681Hoawopjlk [Mass/Vol]0.3 mg/dLNormal0.3-1.0 Flower HospitalComment on above:Performed By: #### HS TROP #### [place] [address] USACT head/brain wo conon 49-30-8145UU head/brain wo con [facility] [place] [address] [place] [address] CT Scan Report Signed Patient: Kelsey Graves MR#: [id number] : 1980 Acct:[id number] Age/Sex: 43 / F ADM Date: 10/05/24 Loc: ER Room: Type: REG ER Attending Dr: Copies to: Alexander Barrera MD Ordering Provider: Alexander Barrera MD Date of Service: 10/05/24 CT/CT head/brain wo con: nkj Unenhanced head CT TECHNIQUE: Contiguous axial imaging of the head. The CT exam was performed using one or more the following dose reduction techniques: Automated exposure control, adjustment of the MA and/or Kv according to patient size, or use of the iterative reconstruction technique. COMPARISON: 10/05/2024 HISTORY: Seizure VENTRICLES: Within normal limits ATROPHY: None BRAIN PARENCHYMA: Adequate orellana-white matter differentiation identified. HEMORRHAGE: None HERNIATION: No mass effect or herniation INFARCTION: No recent vascular distribution infarction is seen. EXTRA-AXIAL FLUID COLLECTIONS None MIDBRAIN: Unremarkable ISIAH: Unremarkable MEDULLA: Unremarkable SINUSES: Unremarkable ORBITS: Grossly unremarkable MASTOIDS: Unremarkable BONY STRUCTURES Intact ADDITIONAL FINDINGS: CT/CT head/brain wo con IMPRESSION: No acute findings. Impression dictated by: Pardeep Montoya M.D. 10/05/2024 8:24 PM Dictation Location: [place] [address] Transcribed By: [facility] 10/05/242023 Dictated By: Pardeep Montoya DO 10/05/242021 Signed By: 10/05/242023[facility] Physician GroupCT head/brain wo [facility] Main [place] [address] [place] [address] CT Scan Report Signed Patient: Kelsey Graves MR#: [id number] : 1980 Acct:[id number] Age/Sex: 43 / F ADM Date: 10/05/24 Loc: ER Room: Type: PRE ER Attending Dr: Copies to: Sherrie Silveira DO Ordering Provider: Sherrie Silveira DO Date of Service: 10/05/24 CT/CT head/brain wo con: seizure, head inj CT BRAIN WITHOUT CONTRAST: CLINICAL HISTORY: Seizure today. COMPARISON: CT brain 01/13/2025 TECHNIQUE: Contiguous axial unenhanced images were obtained through the brain. This CT exam was performed using one or more following dose reduction techniques: Automated exposure control, adjus tment of the mA and/or kV according to patient size, or use of iterative reconstruction technique. FINDINGS: There is no evidence of midline shift, intra or extra-axial fluid collection, hemorrhage or CT evidence of stroke. Posterior fossa appears unremarkable. Visualized intraorbital contents demonstrate no acute findings. Visualized paranasal sinuses are clear. The surrounding soft tissues are normal. CT/CT head/brain wo con IMPRESSION: NO ACUTE INTRACRANIAL ABNORMALITY. Impression dictated by: Raul Nash Jr., Roland 10/05/2024 9:24 AM Dictation Location: [place] [address] Transcribed By: [facility] 10/05/24923 Dictated By: Raul Nash Jr, DO 10/05/24922 Signed By: 10/05/24923[facility] Physician GroupCalcium [Mass/volume] in Serum or PlasmaOrdered By: Alexander Barrera on 68-50-4742Uqotjkj [Mass/Vol]8.8 mg/dLNormal 8.6-10.3FMercy HospitalComment on above:Performed By: #### HS TROP #### [facility] [address] [place], [place] [address] USACalcium [Mass/volume] in Serum or PlasmaOrdered By: Sherrie Silveira on 23-27-7099Xxgktmm [Mass/Vol]8.6 mg/dLNormal8.6-10.3FMercy HospitalComment on above:Performed By: #### HS TROP #### [facility] [address] [place], [place] [address] USACarbon dioxide, total [Moles/volume] in Serum or Plasma Ordered By: Alexander Barrera on 56-00-1947RM4 [Moles/Vol]31.0 mmol/GOnjvof62.0-31.0 Flower HospitalComment on above:Performed By: #### HS TROP #### [facility] [address] [place], [place] [address] USACarbon dioxide, total [Moles/volume] in Serum or Plasma Ordered By: Sherrie Silveira on 22-12-0657CX9 [Moles/Vol]29.4 mmol/WJyvuhm90.0-31.0 Flower HospitalComment on above:Performed By: #### HS TROP #### [facility] [address] [place] [address] USAChloride [Moles/volume] in Serum or PlasmaOrdered By: Alexander Barrera on 24-01-9544Gfiecumj [Moles/Vol]102 mmol/SLttvtb72-011UzjcxajkkFlower HospitalComment on above:Performed By: #### HS TROP #### [place] [address] USAChloride [Moles/volume] in Serum or PlasmaOrdered By: Sherrie Silveira on 58-85-2780Fbdbeubh [Moles/Vol]104 mmol/LKtdaao83-784DrxvmojtgFlower HospitalComment on above:Performed By: #### HS TROP #### [place] [address] USAComplete Blood Count Auto Diffon 76-58-2809Wslt Corpuscular HGB Conc32.8 g/wTFcphnk55.0-35.0[facility] Physician GroupComment on above:Performed By: #### HS TROP #### [place] [address] USAMonocytes/100 WBC (Bld)23.88 %High0.00-20.00[facility] Physician GroupComment on above:Result Comment: For adults in ED, MDW > 20.0 may be associated with a higher risk of sepsis during the first 12 hrs of hospital admissionPerformed By: #### HS TROP #### [facility] [address] [place] [address] USANRBC%0.1 /100{WBC}Normal0-0.5[facility]ician Group Comment on above:Performed By: #### HS TROP #### [place] [address] USAWhite Blood Count8.7 [CFU]/mLNormal3.8-11.6[facility] Physician GroupComment on above:Performed By: #### HS TROP #### [place] [address] USAMean Corpuscular HGB Conc33.0 g/oLLnpuhh46.0-35.0[facility] Physician GroupComment on above:Performed By: #### HS TROP #### [facility] [address] [place] [address] USAMonocytes/100 WBC (Bld)20.50 %High0.00-20.00[facility] Physician GroupComment on above:Result Comment: For adults in ED, MDW > 20.0 may be associated with a higher risk of sepsis during the first 12 hrs of hospital admissionPerformed By: #### HS TROP #### [facility] [address] [place] [address] USANRBC%0.1 /100{WBC}Normal0-0.5[facility] Comment on above:Performed By: #### HS TROP #### [place] [address] USAWhite Blood Count6.7 [CFU]/mLNormal3.8-11.6[facility] Physician GroupComment on above:Performed By: #### HS TROP #### [facility] [address] [place] [address] USAComprehensive Metabolic Panelon 48-12-7770Okqdzhs [Mass/Vol]3.7 g/dLNormal3.5-5.7[facility] Physician GroupComment on above: Performed By: #### HS TROP #### [facility] [address] [place] [address] USACreatinine Clr Calc Xkklauzs707.69NormalThe [facility] Physician GroupComment on above:Performed By: #### HS TROP #### [facility] [address] [place] [address] USAGFR/1.73 sq M.predicted MDRD (S/P/Bld) [Vol rate/Area] mL/min/{1.73_m2}NormalThe [facility] Physician GroupComment on above:Performed By: #### HS TROP #### [facility] [address] [place] [address] USACreatinine [Mass/volume] in Serum or PlasmaOrdered By: Alexander Barrera on 29-65-8741Vzmconearm [Mass/Vol]1.06 mg/dLNormal0.60-1.20Flower HospitalComment on above:Performed By: #### HS TROP #### [facility] [address] [place] [address] USACreatinine [Mass/volume] in Serum or PlasmaOrdered By: Sherrie Berta on 49-36-8668Khcqpurymw [Mass/Vol]0.58 mg/dLLow0.60-1.20Flower HospitalComment on above:Performed By: #### HS TROP #### [facility] [address] [place], [place] [address] USAECG 12 lead ECGon 65-69-7914HPO 12 lead [facility] [place] [address] Electrocardiograph Report Signed Patient: Kelsey Graves MR#: [id number] : 1980 Acct:[id number] Age/Sex: 43 / F ADM Date: 10/05/24 Loc: ER Room: Type: [facility] ER Attending Dr: Ordering Provider: Alexander Barrera MD Date of Service: 10/05/2402/17/1939 ECG/ECG 12 lead ECG: Seizure Copies to: Test Reason : Blood Pressure : 133/75 mmHG Vent. Rate : 85 BPM Atrial Rate : 85 BPM P-R Int : 170 ms QRS Dur : 112 ms QT Int : 386 ms P-R-T Axes : 42 -58 65 degrees QTcB Int : 459 ms Normal sinus rhythm Right bundle branch block Left anterior fascicular block Bifascicular block Abnormal ECG When compared with ECG of 05-Oct-2024 08:30, T wave inversion no longer evident in Inferior leads T wave inversion less evident in Anterolateral leads Confirmed by ALEXANDER BARRERA MD ([id number]) on 10/06/2024 12:19:31 AM Referred By: Electronically Signed By: ALEXNADER BARRERA MD Transcribed By: MUS Signed By Alexander Barrera MD 10/06/24 0019[facility] Physician GroupECG 12 lead [facility] Main [place] [id number] Electrocardiograph Report Signed Patient: Kelsey Graves MR#: [id number] : 1980 Acct:[id number] Age/Sex: 43 / F ADM Date: 10/05/24 Loc: ER Room: Type: [facility] ER Attending Dr: Ordering Provider: Sehrrie Silveira DO Date of Service: 10/05/2402/17/839 ECG/ECG 12 lead ECG: Seizure Copies to: Test Reason : Blood Pressure : 127/57 mmHG Vent. Rate : 62 BPM Atrial Rate : 62 BPM P-R Int : 168 ms QRS Dur : 116 ms QT Int : 428 ms P-R-T Axes : 28 -51 17 degrees QTcB Int : 434 ms Normal sinus rhythm Right bundle branch block Left anterior fascicular block Bifascicular block Abnormal ECG When compared with ECG of 04-Oct-2024 16:09, T wave inversion now evident in Inferior leads Nonspecific T wave abnormality, worse in Lateral leads Confirmed by SHERRIE SILVEIRA DO ([id number]) on 10/05/2024 1:40:47 PM Referred By: Electronically Signed By: SHERRIE SILVEIRA DO Transcribed By: MUS Signed By Sherrie Silveira DO 1340[facility] Physician GroupEosinophils [#/volume] in Blood by Automated countOrdered By: Alexander Barrera on 34-38-4635Qkxgdghpdrr (Bld) [#/Vol]0.1 10*3/uLNormal0.0-0.45Flower HospitalComment on above:Performed By: #### HS TROP #### [facility] [address] [address] USAEosinophils [#/volume] in Blood by Automated countOrdered By: Sherrie Silveira on 66-88-0526Jlkdivkatcq (Bld) [#/Vol]0.1 10*3/uLNormal0.0-0.45 Flower HospitalComment on above:Performed By: #### HS TROP #### [facility] [address] [address] USAEosinophils/100 leukocytes in Blood by Automated count Ordered By: Alexander Barrera on 11-35-0902Walxkvjmwie/100 WBC (Bld)0.9 %Normal. Flower HospitalComment on above:Performed By: #### HS TROP #### [place] [address] USAEosinophils/100 leukocytes in Blood by Automated count Ordered By: Sherrie Silveira on 90-82-7169Kwbzxkgtmtc/100 WBC (Bld)0.9 %Normal. Flower HospitalComment on above:Performed By: #### HS TROP #### [place] [address] USAErythrocyte distribution width [Ratio] by Automated count Ordered By: Alexander Barrera on 59-14-1306Dtvrurdzcfl distribution width (RBC) [Ratio] 14.7 %Odlcri22.9-15.3FMercy HospitalComment on above:Performed By: #### HS TROP #### [place] [address] USAErythrocyte distribution width [Ratio] by Automated count Ordered By: Sherrie Silveira on 63-18-2806Trqdwklcyui distribution width (RBC) [Ratio]15.1 %Kibmsg77.9-15.3FMercy HospitalComment on above: Performed By: #### HS TROP #### [place] [address] USAErythrocytes [#/volume] in Blood by Automated countOrdered By: Alexander Barrera on 41-94-4141VXG (Bld) [#/Vol]3.84 10*6/uLNormal3.60-5.00 [facility] HospitalCompromedica mon[facility] on above:Performed By: #### HS TROP #### [place] [address] USAErythrocytes [#/volume] in Blood by Automated countOrdered By: Sherrie Silveira on 20-44-1716BGO (Bld) [#/Vol]3.91 10*6/uLNormal3.60-5.00 Flower HospitalComment on above:Performed By: #### HS TROP #### [address] [place] [address] USAGlucose [Mass/volume] in Serum or PlasmaOrdered By: Alexander Barrera on 23-49-4339Scvvppd [Mass/Vol]109 mg/dBPuyq30-967Jsudfohfl[address] [place], [place] [address]Comment on above:ADA recommended reference rangeRandom Glucose Reference Range is dependent on time and content of last meal. Glucose of more than 200 mg/dL in a nonstressed, ambulatory subject supports the diagnosisof Diabetes Mellitus.Result Comment: Random Glucose Reference Range is dependent on time and content of last meal. Glucose of more than 200 mg/dL in a nonstressed, ambulatory subject supports the diagnosis of Diabetes Mellitus. ADA recommended reference rangePerformed By: #### HS TROP #### [facility] [address] [address] USAGlucose [Mass/volume] in Serum or PlasmaOrdered By: Sherrie Silveira on 83-71-1757Jbviexr [Mass/Vol]146 mg/tCLgvy85-318Fbtzukrga[address] [place], [place] [address]Comment on above:ADA recommended reference rangeRandom Glucose Reference Range is dependent on time and content of last meal. Glucose of more than 200 mg/dL in a nonstressed, ambulatory subject supports the diagnosisof Diabetes Mellitus.Result Comment: Random Glucose Reference Range is dependent on time and content of last meal. Glucose of more than 200 mg/dL in a nonstressed, ambulatory subject supports the diagnosis of Diabetes Mellitus. ADA recommended reference rangePerformed By: #### HS TROP #### [facility] [address] [address] USAHematocrit [Volume Fraction] of Blood by Automated count Ordered By: Alexander Barrera on 66-68-1611Apxssjtwii (Bld) [Volume fraction]36.6 % Xgtzha22.0-46.4FMercy HospitalComment on above:Performed By: #### HS TROP #### [facility] [address] [address] USAHematocrit [Volume Fraction] of Blood by Automated count Ordered By: Sherrie Silveira on 49-32-6203Bsortniedr (Bld) [Volume fraction]37.1 % Arcqqn80.0-46.4FMercy HospitalComment on above:Performed By: #### HS TROP #### [facility] [address] [place] [address] USAHemoglobin [Mass/volume] in BloodOrdered By: Alexander Barrera on 96-47-6868Awgzwufavg (Bld) [Mass/Vol]12.0 g/fKZxlpqc37.8-15.4FMercy HospitalComment on above:Performed By: #### HS TROP #### [facility] [address] [place] [address] USAHemoglobin [Mass/volume] in BloodOrdered By: Sherrie Silveira on 66-28-2671Vepzpydixo (Bld) [Mass/Vol]12.2 g/vNRabget84.8-15.4FMercy HospitalComment on above:Performed By: #### HS TROP #### [place] [address] USALeukocytes [#/volume] corrected for nucleated erythrocytes in Blood by Automated counOrdered By: Alexander Barrera on 29-08-9285PYJ corrected for nucl RBC Auto (Bld) [#/Vol]8.7 10*3/uL3.8-11.6FMercy Hospital Leukocytes [#/volume] corrected for nucleated erythrocytes in Blood by Automated counOrdered By: Sherrie Silveira on 33-45-8767ZTY corrected for nucl RBC Auto (Bld) [#/Vol]6.7 10*3/uL3.8-11.6FMercy HospitalLeukocytes [#/volume] in Blood by Automated countOrdered By: Alexander Barrera on 73-42-4373ZOM (Bld) [#/Vol]8.7 10*3/uLNormal3.8-11.6FMercy HospitalComment on above:Performed By: #### HS TROP #### [place] [address] USALeukocytes [#/volume] in Blood by Automated countOrdered By: Sherrie Silveira on 53-77-0843DDL (Bld) [#/Vol]6.7 10*3/uLNormal3.8-11.6 Flower HospitalComment on above:Performed By: #### HS TROP #### [address] [address] USALymphocytes [#/volume] in Blood by Automated countOrdered By: Alexander Barrera on 64-83-6231Niqbgzlkirg (Bld) [#/Vol]1.3 10*3/uLNormal1.00-4.8 Flower HospitalComment on above:Performed By: #### HS TROP #### [address] [address] USALymphocytes [#/volume] in Blood by Automated countOrdered By: Sherrie Silveira on 80-04-6789Pcptzivulfl (Bld) [#/Vol]1.2 10*3/uLNormal1.00-4.8 Flower HospitalComment on above:Performed By: #### HS TROP #### [place] [id number] USALymphocytes/100 leukocytes in Blood by Automated count Ordered By: Alexander Barrera on 21-98-9438Mmrvjzzqmnw/100 WBC (Bld)14.8 %Normal. Flower HospitalComment on above:Performed By: #### HS TROP #### [place] [id number] USALymphocytes/100 leukocytes in Blood by Automated count Ordered By: Sherrie Silveira on 00-99-6223Soccbwdvmto/100 WBC (Bld)17.4 %Normal. Flower HospitalComment on above:Performed By: #### HS TROP #### [address] [address] USAH [Entitic mass] by Automated countOrdered By: Alexander Barrera on 35-47-4149UFG (RBC) [Entitic mass]31.3 guBdwval02.7-34.3FMercy HospitalComment on above:Performed By: #### HS TROP #### [place] [id number] USAH [Entitic mass] by Automated countOrdered By: Sherrie Silveira on 80-54-4291VMF (RBC) [Entitic mass]31.3 qtCfpwzq43.7-34.3FMercy HospitalComment on above:Performed By: #### HS TROP #### [facility] [address] [place], [place] [address]HC Auto (RBC) [Mass/Vol]Ordered By: Alexander Barrera on 53-67-7509FYAS (RBC) [Mass/Vol]32.8 g/dL32.0-35.0[facility] HospitalHC Auto (RBC) [Mass/Vol]Ordered By: Sherrie Silveira on 74-44-4208WUQF (RBC) [Mass/Vol]33.0 g/dL32.0-35.0Flower HospitalMCV [Entitic volume] by Automated countOrdered By: Alexander Barrera on 30-20-2243RLQ (RBC) [Entitic vol]95.3 rDVfguqg51-464WxetrpexzFlower HospitalComment on above: Performed By: #### HS TROP #### [facility] [address] [place] [address] USAV [Entitic volume] by Automated countOrdered By: Sherrie Silveira on 22-31-4506KZN (RBC) [Entitic vol]95.0 kYAewydm42-053QvvskgkpeFlower HospitalComment on above:Performed By: #### HS TROP #### [facility] [address] [place] [address] USAMonocyte distribution width [Entitic volume] in Blood by AutomatedOrdered By: Alexander Barrera on 98-52-0039Pwgofptr distribution width Auto (Bld) [Entitic vol]23.88 %High0.00-20.00Flower HospitalComment on above:For adults in ED, MDW > 20.0 may be associated with a higher risk of sepsis during the first 12 hrs of hospital admissionMonocyte distribution width [Entitic volume] in Blood by AutomatedOrdered By: Sherrie Silveira on 10-05-2024 Monocyte distribution width Auto (Bld) [Entitic vol]20.50 %High0.00-20.00 Flower HospitalComment on above:For adults in ED, MDW > 20.0 may be associated with a higher risk of sepsis during the first 12 hrs of hospital admissionMonocytes [#/volume] in Blood by Automated countOrdered By: Alexander Barrera on 95-50-6940Mhqncwsto (Bld) [#/Vol]0.7 10*3/uLNormal0.0-0.8Flower HospitalComment on above:Performed By: #### HS TROP #### [address] [address] USAMonocytes [#/volume] in Blood by Automated countOrdered By: Sherrie Silveira on 05-79-7822Kotfpoehi (Bld) [#/Vol]0.4 10*3/uLNormal0.0-0.8 Flower HospitalComment on above:Performed By: #### HS TROP #### [address] [address] USAMonocytes/100 leukocytes in Blood by Automated count Ordered By: Alexander Barrera on 95-10-8792Awkrzogdi/100 WBC (Bld)8.1 %Normal.Flower HospitalComment on above:Performed By: #### HS TROP #### [address] [address] USAMonocytes/100 leukocytes in Blood by Automated count Ordered By: Sherrie Silveira on 16-16-0100Ulxnujgno/100 WBC (Bld)6.5 %Normal. Flower HospitalComment on above:Performed By: #### HS TROP #### [place] [id number] USANeutrophils [#/volume] in Blood by Automated countOrdered By: Alexander Barrera on 84-39-5292Yrofrktujuu (Bld) [#/Vol]6.6 10*3/uLNormal1.8-7.7 Flower HospitalComment on above:Performed By: #### HS TROP #### [address] [address] USANeutrophils [#/volume] in Blood by Automated countOrdered By: Sherrie Silveira on 62-31-3289Umpklnsogro (Bld) [#/Vol]4.9 10*3/uLNormal1.8-7.7 Flower HospitalComment on above:Performed By: #### HS TROP #### [facility] [address] [place] [id number] USANeutrophils/100 leukocytes in Blood by Automated count Ordered By: Alexander Barrera on 49-35-7697Otjcdzltjzl/100 WBC (Bld)75.8 %Normal. Flower HospitalComment on above:Performed By: #### HS TROP #### [facility] [address] [place] [id number] USANeutrophils/100 leukocytes in Blood by Automated count Ordered By: Sherrie Silveira on 18-11-7762Bdlwbirzkks/100 WBC (Bld)73.8 %Normal. Flower HospitalComment on above:Performed By: #### HS TROP #### [facility] [address] [place] [id number] USANo Panel InformationOrdered By: Alexander Barrera on 10-05-2024 Estimated GFR (CKD-EPI)> 60.0 mL/MinFlower HospitalPharmacy Creatinine Clearance (Chem62.85Flower HospitalNo Panel InformationOrdered By: Sherrie Silveira on 37-55-6577Zeawbxhyc GFR (CKD-EPI)> 60.0 mL/MinFlower HospitalPharmacy Creatinine Clearance (Exry239.69 Flower HospitalNucleated erythrocytes [Presence] in Blood by Automated countOrdered By: Alexander Barrera on 32-06-5890Lqtpwprjl RBC Auto Ql (Bld) 0.1 /100{WBC}0-0.5FMercy HospitalNucleated erythrocytes [Presence] in Blood by Automated countOrdered By: Sherrie Silveira on 10-05-2024 Nucleated RBC Auto Ql (Bld)0.1 /100{WBC}0-0.5FMercy Hospital Platelet mean volume [Entitic volume] in Blood by Automated countOrdered By: Alexander Barrera on 21-46-6479Jhgqwzlk mean volume (Bld) [Entitic vol]8.7 fLNormal 6.3-10.7FMercy HospitalComment on above:Performed By: #### HS TROP #### [facility] [address] [place] [address] USAPlatelet mean volume [Entitic volume] in Blood by Automated countOrdered By: Sherrie Silveira on 61-91-8045Apgzvvnv mean volume (Bld) [Entitic vol]8.4 fLNormal6.3-10.7FMercy HospitalComment on above:Performed By: #### HS TROP #### [facility] [address] [place] [address] USAPlatelets [#/volume] in Blood by Automated countOrdered By: Alexander Barrera on 77-92-0878Uttchsjla (Bld) [#/Vol]249 10*3/tLKsjvxb581-984 Flower HospitalComment on above:Performed By: #### HS TROP #### [place] [address] USAPlatelets [#/volume] in Blood by Automated countOrdered By: Sherrie Silveira on 06-90-6643Hnfttvjws (Bld) [#/Vol]228 10*3/fBBftqlj128-621 Flower HospitalComment on above:Performed By: #### HS TROP #### [place] [id number] USAPotassium [Moles/volume] in Serum or PlasmaOrdered By: Alexander Barrera on 19-88-9490Dkaybaves [Moles/Vol]4.7 mmol/LNormal3.5-5.1FMercy HospitalComment on above:Hemolysis is present at a level that could interfere with the result.Contact lab if redraw is requiredResult Comment: Hemolysis is present at a level that could interfere with the result. Contact lab if redraw is requiredPerformed By: #### HS TROP #### [place] [id number] USAPotassium [Moles/volume] in Serum or PlasmaOrdered By: Sherrie Silveira on 53-74-8255Elbtcaxjc [Moles/Vol]4.2 mmol/LNormal3.5-5.1Fire[facility] Regional Medical CenterComment on above:Performed By: #### HS TROP #### [place] [address] USAProlactinon 26-61-2872Mjtpozvkq69.28 ng/mLHigh3.34-26.72 The [facility] Physician GroupComment on above:Result Comment: PERFORMED BY: [place] [address] PATHOLOGIST HEDDLE MACHINE OPERATOR SHAWN KIM M.D.Performed By: #### HS TROP #### [place] [address] USAProlactin [Mass/volume] in Serum or PlasmaOrdered By: Sherrie Silveira on 88-51-1822Olhgnuchi [Mass/Vol]32.28 ng/mLHigh3.34-26.72Flower HospitalProtein [Mass/volume] in Serum or PlasmaOrdered By: Sherrie Silveira on 72-26-5462Tqdjnyd [Mass/Vol]7.1 g/dLNormal6.4-8.9Flower HospitalComment on above:Performed By: #### HS TROP #### [place] [address] USASerum globulin measurement by calculation (mass/volume) Ordered By: Sherrie Silveira on 62-71-8144Thivxkrz (S) [Mass/Vol]3.4 g/dLNormal Flower HospitalComment on above:Performed By: #### HS TROP #### [facility] [address] [place] [address] USASerum or plasma albumin/globulin mass ratioOrdered By: Sherrie Silveira on 65-09-9614Omuhadj/Globulin [Mass ratio]1.1 {ratio}Normal Flower HospitalComment on above:Performed By: #### HS TROP #### [place] [address] USASerum or plasma anion gap determinationOrdered By: Alexander Barrera on 25-42-7367Pthqc gap [Moles/Vol]10.7 mmol/LNormal6.0-15.0Flower HospitalComment on above:Performed By: #### HS TROP #### [facility] [address] [place] [address] USASerum or plasma anion gap determinationOrdered By: Sherrie Silveira on 69-13-9528Tlpgb gap [Moles/Vol]8.8 mmol/LNormal6.0-15.0Flower HospitalComment on above:Performed By: #### HS TROP #### [facility] [address] [place] [address] USASodium [Moles/volume] in Serum or PlasmaOrdered By: Alexander Barrera on 94-75-8149Vrwmow [Moles/Vol]139 mmol/ZEukuur859-357CiuspegtbFlower HospitalComment on above:Performed By: #### HS TROP #### [facility] [address] [place] [address] USASodium [Moles/volume] in Serum or PlasmaOrdered By: Sherrie Silveira on 40-83-1747Cyiuvl [Moles/Vol]138 mmol/VLwcctf236-965TetccanxjFlower HospitalComment on above:Performed By: #### HS TROP #### [facility] [address] [place], [place] [address] USAUrea nitrogen [Mass/volume] in Serum or PlasmaOrdered By: Alexander Barrera on 17-04-0282Teqg nitrogen [Mass/Vol]17 mg/dLNormal7-25Flower HospitalComment on above:Performed By: #### HS TROP #### [facility] [address] [place], [place] [address] USAUrea nitrogen [Mass/volume] in Serum or PlasmaOrdered By: Sherrie Silveira on 22-93-1244Pqtd nitrogen [Mass/Vol]12 mg/dLNormal7-25Flower HospitalComment on above:Performed By: #### HS TROP #### [facility] [address] [place], [place] [address] USAX-ray reportOrdered By: Raul Nash on 76-81-8441Otocs [facility] [place] [address] [place] [id number] XRay Report Signed Patient: Kelsey Graves MR#: [id number] : 1980 Acct:[id number] Age/Sex: 43 / F ADM Date: 5 Loc: ER Room: Type: [facility] ER Attending Dr: Copies to: Sherrie Silveira DO~ Ordering Provider: Sherrie Silveira DO Date of Service: 10/05/24 XR/XR thoracic spine 3V*: Seizure THORACIC SPINE - - 3 views CLINICAL HISTORY: Seizure. Thoracic spine pain COMPARISON: None FINDINGS: Scoliosis with multilevel degenerative changes. Pedicles appear intact. No acute bony process. There appears to be interstitial changes involving the lungparenchyma. XR/XR thoracic spine 3V* IMPRESSION: MULTILEVEL DEGENERATIVE CHANGES WITH SCOLIOSIS. NO ACUTE BONY PROCESS IS SEEN. Impression dictated by: Raul Nash Jr., DNandaONanda 10/05/2024 9:43 AM Dictation Location: [place] [address] Transcribed By: [facility] 10/05/24 0943 Dictated By: Raul Nash Jr, DO 10/05/24 0942 Signed By: 10/05/24 0943 Flower HospitalXR thoracic spine 3V*on 11-82-8422NO thoracic spine 3V*[facility] [place] [address] [place], [place] [address] XRay Report Signed Patient: Kelsey Graves MR#: [id number] : 1980 Acct:[id number] Age/Sex: 43 / F ADM Date: 10/05/24 Loc: ER Room: Type: [facility] ER Attending Dr: Copies to: Sherrie Silveira DO Ordering Provider: Sherrie Silveira DO Date of Service: 10/05/24 XR/XR thoracic spine 3V*: Seizure THORACIC SPINE - - 3 views CLINICAL HISTORY: Seizure. Thoracic spine pain COMPARISON: None FINDINGS: Scoliosis with multilevel degenerative changes. Pedicles appear intact. No acute bony process. There appears to be interstitial changes involving the lung parenchyma. XR/XR thoracic spine 3V* IMPRESSION: MULTILEVEL DEGENERATIVE CHANGES WITH SCOLIOSIS. NO ACUTE BONY PROCESS IS SEEN. Impression dictated by: Raul Nash Jr., KieranONanda 10/05/2024 9:43 AM Dictation Location: [place] [address] Transcribed By: [facility] 10/05/249[address] Dictated By: Raul Nash Jr, DO 10/05/2442 Signed By: 10/05/24 0943[facility] Hospital Physician GroupAlanine aminotransferase [Enzymatic activity/volume] in Serum or PlasmaOrdered By: Nat Guteirrez on 94-45-1121XKG [Catalytic activity/Vol]16 U/LNormal7-52Flower HospitalComment on above:Performed By: #### VALP #### [facility] [address] [place] [address] USAAlbumin [Mass/volume] in Serum or Plasma by Bromocresol green (BCG) dye binding methoOrdered By: Nat Gutierrez on 87-89-5927Zodiitf BCG dye [Mass/Vol]3.9 g/dL3.5-5.7FMercy HospitalAlkaline phosphatase [Enzymatic activity/volume] in Serum or PlasmaOrdered By: Nat Gutierrez on 12-60-3033OVE [Catalytic activity/Vol]54 U/TQkjqmj05-128RrorfvtzzFlower HospitalComment on above:Performed By: #### VALP #### [facility] [address] [place] [address] USAAppearance of UrineOrdered By: Nat Gutierrez on 14-67-5508Xwzczkqyeg (U)ClearNormalClearFlower HospitalComment on above:Order Comment: Name Collection Type:: Clean-Voided MidstreamPerformed By: #### CUU, ADDONUAPLUS ####[facility] [address] [place], [place] USAAspartate aminotransferase [Enzymatic activity/volume] in Serum or PlasmaOrdered By: Nat Gutierrez on 90-40-8925QBD [Catalytic activity/Vol]16 U/HOwrtwm38-96PzvksgjtyFlower Hospital Comment on above:Performed By: #### VALP #### [facility] [address] [place], [place] [address] USABNP ser/plasOrdered By: Nat Gutierrez on 10-04-2024 Natriuretic peptide B (Bld) [Mass/Vol]31.0 pg/mLNormal5-100Flower HospitalComment on above:Result Comment: PERFORMED BY: [address] [place] [address] PATHOLOGIST HEDDLE MACHINE OPERATOR SHAWN KIM M.D.Performed By: #### PRL, BNP, CMP, HS TROP, LIPASE, PT, CBC, CK ####[place] [address] [place] Bacteria [Presence] in Urine by AutomatedOrdered By: Nat Gutierrez on 30-84-7263Cjmldnnk Auto Ql (U)None seen [HPF]None SeenFlower HospitalBasophils [#/volume] in Blood by Automated countOrdered By: Nat Gutierrez on 21-71-6499Twnxubxom (Bld) [#/Vol]0.1 10*3/uLNormal0.0-0.2FMercy HospitalComment on above:Result Comment: PERFORMED BY: [facility] [address] [facility] [place] [address] PATHOLOGIST HEDDLE MACHINE OPERATOR SHAWN KIM M.D.Performed By: #### PRL, BNP, CMP, HS TROP, LIPASE, PT, CBC, CK ####[place] [address] [place] Basophils/100 leukocytes in Blood by Automated countOrdered By: Nat Gutierrez on 40-46-6885Ilgtkwtkn/100 WBC (Bld)0.7 %Normal.Flower HospitalComment on above:Performed By: #### PRL, BNP, CMP, HS TROP, LIPASE, PT, CBC, CK ####[place] [address] USABilirubin Test strip Ql (U)Ordered By: Nat Gutierrez on 82-43-7643Ibkhedhup Ql (U)NegativeNegativeFlower HospitalBilirubin.total [Mass/volume] in Serum or PlasmaOrdered By: Nat Gutierrez on 10-04-2024 Bilirubin [Mass/Vol]0.3 mg/dLNormal0.3-1.0[facility] Comment on above:Performed By: #### VALP #### [facility] [address] [place] [address] USACT abdomen pelvis w conon 67-77-7213TH abdomen pelvis w [facility] [place] [address] [place] [address] CT Scan Report Signed Patient: Kelsey Graves MR#: [id number] : 1980 Acct:[id number] Age/Sex: 43 / F ADM Date: 10/04/24 Loc: ER Room: Type: [facility] ER Attending Dr: Copies to: Nat Gutierrez MD Ordering Provider: Nat Gutierrez MD Date of Service: 10/04/24 CT/CT abdomen pelvis w con: fall, hit head, poss seizure act, neck/back pain ([id number]) CT/CT chest w con: fall, hit head, poss seizure act, neck/back pain CT Chest, Abdomen and Pelvis with contrast TECHNIQUE: Axial imaging with 2-D reconstruction. 90 cc of Isovue-300The CT exam was performed using one or more the following dose reduction techniques: Automated exposure control, adjustment of the MA and/or Kv according to patient size, or use of the iterative reconstruction technique. History: Seizure. Fell. History of Down syndrome. COMPARISON: 05/02/2016 THYROID: No significant thyroid abnormality identified. AIRWAY: Central airway is patent. ESOPHAGUS: Esophagus normal course and caliber. HEART: Heart is not enlarged. PERICARDIAL EFFUSION: None CORONARY ARTERY CALCIFICATION: None MEDIASTINUM: Nonenlarged mediastinal lymph nodes identified. HILAR REGION: No hilar mass or adenopathy is seen. THORACIC AORTA: No thoracic aortic aneurysm or dissection. No atherosclerosis LUNG INTERSTITIUM: No infiltrate or congestion identified. Minor interstitial changes likely related to depth of inspiration. PLEURAL EFFUSION No pleural effusion identified. PNEUMOTHORAX: No pneumothorax seen. LUNG NODULE: No lung nodules identified. CHEST WALL: No chest wall abnormality seen. The bony chest intact. LIVER: No hepatic mass or intrahepatic biliary ductal dilatation is identified. Normal density of the liver parenchyma identified. GALLBLADDER: No gallbladder abnormalities identified. BILE DUCTS: No biliary duct dilatation identified. SPLEEN: Normal PANCREAS: Unremarkable ADRENAL GLANDS: The adrenal glands are unremarkable. KIDNEYS: Unremarkable ABDOMINAL AORTA: The abdominal aorta is normal. RETROPERITONEUM: No significant retroperitoneal abnormalities identified. STOMACH:Nondistended SMALL BOWEL: The small bowel loops are nondistended. APPENDIX: The appendix is normal. COLON: There is no colitis or diverticulitis. URINARY BLADDER: Urinary bladder is unremarkable. REPRODUCTIVE STRUCTURES: Developing 4.4 cm hypodensity left adnexal region favoring ovarian cyst. FREE AIR: None FREE FLUID: None ABDOMINAL WALL: No subcutaneous soft tissue abnormality identified. INGUINAL HERNIA: None BONES:Moderate thoracolumbar scoliosis. No acute displaced fracture CT/CT chest w con IMPRESSION: No acute findings PRELIMINARY RESULTS: None given Impression dictated by: Pardeep Montoya M.D. 10/04/2024 6:56 PM Dictation Location: [place] [address] Transcribed By: [facility] 10/04/241855 Dictated By: Pardeep Montoya DO 10/04/24 184 Signed By: 10/04/241855[facility] Hospital Physician GroupCT cervical spine wo [facility] 31-62-7002ZX cervical spine wo [facility] [place] [address] [place] [address] CT Scan Report Signed Patient: Kelsey Graves MR#: [id number] : 1980 Acct:[id number] Age/Sex: 43 / F ADM Date: 10/04/24 Loc: ER Room: Type: [facility] ER Attending Dr: Copies to: Nat Gutierrez MD Ordering Provider: Nat Gutierrez MD Date of Service: 10/04/24 CT/CT cervical spine wo con: fall, hit head, poss seizure act, neck/back pain CT Cervical Spine withoutcontrast TECHNIQUE: Axial imaging with 2-D and 3-D reconstruction. The CT exam was performed using one or more the following dose reduction techniques: Automated exposure control, adjustment of the MA and/or Kv according to patient size, or use of the iterative reconstruction technique. COMPARISON: None HISTORY: Seizure. Fell. Injury right side of mouth. POST SURGERY CHANGES: None BONY ALIGNMENT: Straightening of cervical lordosis BONY SPINAL CANAL: Patent central bony canal FRACTURE: None BONY LESIONS: None SOFT TISSUES: Unremarkable DEGENERATIVE CHANGES: Moderate C6-7 spondylosis LUNG APICES: Unremarkable ADDITIONAL FINDINGS: CT/CT cervical spine wo con IMPRESSION: No acute process Impression dictated by: Pardeep Montoya M.D. 10/04/2024 6:29 PM Dictation Location: [facility]IO[facility]-20 Transcribed By: SYLVIA 10/04/241828 Dictated By: Pardeep Montoya DO 10/04/241825 Signed By: 10/04/24 1829[facility] Physician GroupCT head/brain wo conon 24-93-9005GJ head/brain wo [facility] [place] [address] [place] [address] CT Scan Report Signed Patient: Kelsey Graves MR#: [id number] : 1980 Acct:[id number] Age/Sex: 43 / F ADM Date: 10/04/24 Loc: ER Room: Type: [facility] ER Attending Dr: Copies to: Nat Gutierrez MD Ordering Provider: Nat Gutierrez MD Date of Service: 10/04/24 CT/CT head/brain wo con: fall, hit head, poss seizure act, neck/back pain Unenhanced head CT TECHNIQUE: Contiguous axial imaging of the head. The CT exam was performed using one or more the following dose reduction techniques: Automated exposure control, adjustment of the MA and/or Kv according to patient size, or use of the iterative reconstruction technique. COMPARISON: 01/15/2024 HISTORY: Seizure. Fell. Right facial injury VENTRICLES: Within normal limits ATROPHY: None BRAIN PARENCHYMA: Adequate orellana-white matter differentiation identified. HEMORRHAGE: None HERNIATION: No mass effect or herniation INFARCTION: No recent vascular distribution infarction is seen. EXTRA-AXIAL FLUID COLLECTIONS None MIDBRAIN: Unremarkable ISIAH: Unremarkable MEDULLA: Unremarkable SINUSES: Unremarkable ORBITS: Grossly unremarkable MASTOIDS: Unremarkable BONY STRUCTURES Intact ADDITIONAL FINDINGS: CT/CT head/brain wo con IMPRESSION: No acute findings. Impression dictated by: Pardeep Montoya M.D. 10/04/2024 5:14 PM Dictation Location: [facility]IO-PC-20 Transcribed By: SYLVIA 10/04/24 1714 Dictated By: Pardeep Montoya DO 10/04/241712 Signed By: 10/04/24 171[facility] Physician GroupCalcium [Mass/volume] in Serum or PlasmaOrdered By: Nat Gutierrez on 59-51-5934Kbmlzdz [Mass/Vol]8.8 mg/dL Normal8.6-10.3FMercy HospitalComment on above:Performed By: #### VALP #### [facility] [address] [place] [address] USACarbon dioxide, total [Moles/volume] in Serum or Plasma Ordered By: Nat Gutierrez on 96-35-6062KV0 [Moles/Vol]30.8 mmol/LNormal 21.0-31.0Flower HospitalComment on above:Performed By: #### VALP #### [facility] [address] [place] [address] USAChloride [Moles/volume] in Serum or PlasmaOrdered By: Nat Gutierrez on 70-46-7066Mbrylsmw [Moles/Vol]102 mmol/ZTyspwa22-089LeqpnrsknFlower HospitalComment on above:Performed By: #### VALP #### [facility] [address] [place] [address] USAColor of Urine by AutoOrdered By: Nat Gutierrez on 67-44-6919Prfdi (U)Light-yellowNormalYThe [facility] Comment on above:Order Comment: Name Collection Type:: Clean-Voided Midstream Performed By: #### CUU, ADDONUAPLUS ####[address] USAComplete Blood Count Auto Diffon 23-46-2350Pjle Corpuscular HGB Conc32.6 g/vBNmhshq54.0-35.0The [facility] Physician GroupComment on above:Performed By: #### PRL, BNP, CMP, HS TROP, LIPASE, PT, CBC, CK ####[facility] [address] [place], [place] [address] [place] Monocytes/100 WBC (Bld)20.18 %High0.00-20.00The [facility] Physician GroupComment on above:Result Comment: For adults in ED, MDW > 20.0 may be associated with a higher risk of sepsis during the first 12 hrs of hospital admissionPerformed By: #### PRL, BNP, CMP, HS TROP, LIPASE, PT, CBC, CK ####[place] [address] [place] [address] USANRBC%0.0 /100{WBC}Normal0-0.5The [facility] Physician GroupComment on above:Performed By: #### PRL, BNP, CMP, HS TROP, LIPASE, PT, CBC, CK ####[place] [address] USAWhite Blood Count8.8 [CFU]/mLNormal3.8-11.6The [facility] Physician [facility] SystemComment on above:Performed By: #### PRL, BNP, CMP, HS TROP, LIPASE, PT, CBC, CK ####[place] [address] USAComprehensive Metabolic Panelon 49-47-8385Kkbpppg [Mass/Vol]3.9 g/dLNormal3.5-5.7The [facility] Physician [facility] SystemComment on above: Performed By: #### VALP #### [facility] [address] [place] [address] USACreatinine Clr Calc Sqiatkpm084.26NormalThe [facility] Physician [facility] SystemComment on above:Performed By: #### VALP #### [facility] [address] [place] [address] USAGFR/1.73 sq M.predicted MDRD (S/P/Bld) [Vol rate/Area] mL/min/{1.73_m2}NormalThe [facility] Physician [facility] SystemComment on above:Performed By: #### VALP #### [facility] [address] [place] [address] USACreatine kinase [Enzymatic activity/volume] in Serum or PlasmaOrdered By: Nat Gutierrez on 91-35-6303YY [Catalytic activity/Vol]56 U/L Zhoaei28-888OyzhgfycwFlower HospitalComment on above:Performed By: #### PRL, BNP, CMP, HS TROP, LIPASE, PT, CBC, CK ####[place] [address] USACreatinine [Mass/volume] in Serum or PlasmaOrdered By: Nat Gutierrez on 09-55-3816Tmyjbfsjwh [Mass/Vol]0.60 mg/dL Normal0.60-1.20Flower HospitalComment on above:Performed By: #### VALP #### [facility] [address] [place] [address] USADipstick and Microscopicon 59-20-2092Dlnhvbib,UrineNone SeenNormalNone SeenThe [facility] Physician GroupComment on above:Order Comment: Name Collection Type:: Clean-Voided MidstreamPerformed By: #### CUU, ADDONUAPLUS ####[address] [place] Bilirubin,UrineNegativeNormalNegativeNch Healthcare System - North Naples Physician GroupComment on above:Order Comment: Name Collection Type:: Clean-Voided MidstreamPerformed By: #### CUU, ADDONUAPLUS ####[address] USAGlucose Ql (U)NormalNormalNormalThBear Lake Memorial Hospital Physician GroupComment on above:Order Comment: Name Collection Type:: Clean- Voided MidstreamPerformed By: #### CUU, ADDONUAPLUS ####[address] USAHyaline Casts,UrineNoneNormal 0-8The [facility] Physician GroupComment on above:Order Comment: Name Collection Type:: Clean-Voided MidstreamPerformed By: #### CUU, ADDONUAPLUS ####[address] USAMucus,UrineRareNormal The [facility] Physician GroupComment on above:Order Comment: Name Collection Type:: Clean-Voided MidstreamResult Comment: PERFORMED BY: [facility] [address] [facility] CENTERSusanne [place] [id number] PATHOLOGIST HEDDLE MACHINE OPERATOR SHAWN KIM M.D.Performed By: #### CUU, ADDONUAPLUS ####[address], [place] USANitrite,UrineNegativeNormal NegativeThe [facility] Physician GroupComment on above:Order Comment: Name Collection Type:: Clean-Voided MidstreamPerformed By: #### CUU, ADDONUAPLUS ####[address] [place], [place] USAOccult Blood,UrineNegativeNormalNegativeThe [facility] Physician GroupComment on above: Order Comment: Name Collection Type:: Clean-Voided MidstreamResult Comment: PERFORMED BY: [facility] [address] [place] [address] PATHOLOGIST HEDDLE MACHINE OPERATOR SHAWN KIM M.D.Performed By: #### CUU, ADDONUAPLUS ####[address] [id number] USAProtein,UrineNegativeNormal NegativeThe [facility] Physician GroupComment on above:Order Comment: Name Collection Type:: Clean-Voided MidstreamPerformed By: #### CUU, ADDONUAPLUS ####[address], [place] [place] RBC,Maqri0-2Cjjorr8-9Olw [facility] Physician GroupComment on above:Order Comment: Name Collection Type:: Clean-Voided MidstreamPerformed By: #### CUU, ADDONUAPLUS ####[address], [id number] USASpecificy Raymond,Urine1.976Qiqz3.001-1.030The [facility] Physician Group Comment on above:Order Comment: Name Collection Type:: Clean-Voided Midstream Performed By: #### CUU, ADDONUAPLUS ####[address], [place] USASquamous Epithelial Cell,Jertn4-1Lnkdxp4-4Pox [facility] Physician GroupComment on above:Order Comment: Name Collection Type:: Clean-Voided MidstreamPerformed By: #### CUU, ADDONUAPLUS ####[address], [place] USAUrobilinogen,UrineNormalNormal NormalThe [facility] Physician GroupComment on above:Order Comment: Name Collection Type:: Clean-Voided MidstreamPerformed By: #### CUU, ADDONUAPLUS ####[facility] [address] [place], [place] [place] WBC,Aotrx3-6Imrpwl6-6Cqu [facility] Physician GroupComment on above:Order Comment: Name Collection Type:: Clean-Voided MidstreamPerformed By: #### CUU, ADDONUAPLUS ####[facility] [address] [place], [place] USAECG 12 lead ECGon 36-38-3825JUY 12 lead ECGMERCY [facility] [place] [address] Electrocardiograph Report Signed Patient: Kelsey Graves MR#: [id number] : 1980 Acct:[id number] Age/Sex: 43 / F ADM Date: 10/04/24 Loc: ER Room: Type: [facility] ER Attending Dr: Ordering Provider: Nat Gutierrez MD Date of Service: 10/04/2401/18/1614 ECG/ECG 12 lead ECG: Syncope Copies to: Test Reason : Blood Pressure : 132/63 mmHG Vent. Rate : 69 BPM Atrial Rate : 69 BPM P-R Int : 172 ms QRS Dur : 120 ms QT Int : 438 ms P-R-T Axes : 45 -53 58 degrees QTcB Int : 469 ms Normal sinus rhythm Right bundle branch block Left anterior fascicular block Bifascicular block Confirmed by Nat Gutierrez MD ([id number]) on 10/04/2024 7:03:54 PM Referred By: Electronically Signed By: Nat Gutierrez MD Transcribed By: MUS Signed By Nat Gutierrez MD 09/24 03/20 190[facility] Physician GroupEosinophils [#/volume] in Blood by Automated countOrdered By: Nat Gutierrez on 74-76-0014Efzgupyvzlc (Bld) [#/Vol] 0.1 10*3/uLNormal0.0-0.45Flower HospitalComment on above: Performed By: #### PRL, BNP, CMP, HS TROP, LIPASE, PT, CBC, CK ####[place] [address] [place] [id number] USAEosinophils/100 leukocytes in Blood by Automated countOrdered By: Nat Gutierrez on 10-04-2024 Eosinophils/100 WBC (Bld)1.0 %Normal.Flower HospitalComment on above:Performed By: #### PRL, BNP, CMP, HS TROP, LIPASE, PT, CBC, CK ####[place] [id number] [place] Epithelial cells.squamous [#/area] in Urine sediment by Automated countOrdered By: Nat Gutierrez on 46-50-7128Cfojkzkqlg cells.squamous Auto (Urine sed) [#/Area]1-2 [HPF]0-2FMercy HospitalErythrocyte distribution width [Ratio] by Automated countOrdered By: Nat Gutierrez on 10-04-2024 Erythrocyte distribution width (RBC) [Ratio]15.0 %Pribcg45.9-15.3FMercy HospitalComment on above:Performed By: #### PRL, BNP, CMP, HS TROP, LIPASE, PT, CBC, CK ####[place] [id number] USAErythrocytes [#/area] in Urine sediment by Automated countOrdered By: Nat Gutierrez on 11-50-3335IUA Auto (Urine sed) [#/Area]1-2 [HPF]0-4FMercy HospitalErythrocytes [#/volume] in Blood by Automated countOrdered By: Nat Gutierrez on 41-14-6425WWR (Bld) [#/Vol]3.86 10*6/uLNormal3.60-5.00Flower HospitalComment on above: Performed By: #### PRL, BNP, CMP, HS TROP, LIPASE, PT, CBC, CK ####[place] [id number] USAGlucose [Mass/volume] in Serum or PlasmaOrdered By: Nat Gutierrez on 42-66-8852Vzgiesi [Mass/Vol]99 mg/eRZdfsqn52-830VvvzzmjqeFlower HospitalComment on above:ADA recommended reference rangeRandom Glucose Reference Range is dependent on time and content of last meal. Glucose of more than 200 mg/dL in a nonstressed, ambulatory subject supports the diagnosisof Diabetes Mellitus.Result Comment: Random Glucose Reference Range is dependent on time and content of last meal. Glucose of more than 200 mg/dL in a nonstressed, ambulatory subject supports the diagnosis of Diabetes Mellitus. ADA recommended reference rangePerformed By: #### VALP #### [facility] [address] [place] [address] USAGlucose [Mass/volume] in Urine by Test stripOrdered By: Nat Gutierrez on 98-80-3728Ttrjaxo Test strip (U) [Mass/Vol]Normal mg/dLNormal Flower HospitalHematocrit [Volume Fraction] of Blood by Automated countOrdered By: Nat Gutierrez on 37-83-5384Zobkatbmqt (Bld) [Volume fraction]36.9 %Ewsgkz35.0-46.4FMercy HospitalComment on above: Performed By: #### PRL, BNP, CMP, HS TROP, LIPASE, PT, CBC, CK ####[facility] [place] [address] USAHemoglobin Test strip Ql (U)Ordered By: Nat Gutierrez on 95-13-4658Vifofxouov Ql (U)NegativeNegative Flower HospitalHemoglobin [Mass/volume] in BloodOrdered By: Nat Gutierrez on 33-37-1174Vrvvjtfweq (Bld) [Mass/Vol]12.0 g/hRDprxzq10.8-15.4 Flower HospitalComment on above:Performed By: #### PRL, BNP, CMP, HS TROP, LIPASE, PT, CBC, CK ####[place] [address] [place] [address] USAHyaline casts [#/area] in Urine sediment by Automated countOrdered By: Nat Gutierrez on 21-45-9330Pvrghew casts Auto (Urine sed) [#/Area]None [LPF]0-8Flower HospitalINR in Platelet poor plasma by Coagulation assayOrdered By: Nat Gutierrez on 20-49-5522KKI Coag (PPP) [Relative time]1.0 {INR}[facility] HospitalComment on above:INR Therapeutic Range A) Pre- and Peroperative OAT started two weeks before surgery. NOT HIP SURGERY: 1.5 - 2.5 HIP SURGERY: 2 - 3B) Primary and secondary prevention of venous THROMBOSIS: 2 - 3C) Active venous thrombosis, pulmonary embolismand prevention of recurrent venous thrombosis: 2 - 3D) Preve ntion of arterial thromboembolismincluding patients with mechanical heart valves: 3 - 4.5Result Comment: INR Therapeutic Range A) Pre- and Peroperative OAT started two weeks before surgery. NOT HIP SURGERY: 1.5 - 2.5 HIP SURGERY: 2 - 3 B) Primary and secondary prevention of venous THROMBOSIS: 2 - 3 C) Active venous thrombosis, pulmonary embolism and prevention of recurrent venous thrombosis: 2 - 3 D) Prevention of arterial thromboembolism including patients with mechanical heart valves: 3 - 4.5 PERFORMED BY: [place] [address] PATHOLOGIST HEDDLE MACHINE OPERATOR SHAWN KIM M.D.Performed By: #### VALP #### [place] [address] USAKetones [Presence] in Urine by Test stripOrdered By: Nat Gutierrez on 55-09-0432Tdqkmqu Ql (U)NegativeNormalNegOhioHealth Doctors HospitalComment on above:Order Comment: Name Collection Type:: Clean-Voided MidstreamPerformed By: #### CUU, ADDONUAPLUS ####[place] [address] [place], [place] USALeukocyte esterase [Presence] in Urine by Test stripOrdered By: Nat Gutierrez on 53-14-9217Fdelurply esterase Test strip Ql (U)2+NormalNegOhioHealth Doctors HospitalComment on above:Order Comment: Name Collection Type:: Clean-Voided MidstreamPerformed By: #### CUU, ADDONUAPLUS ####[address] [id number] USALeukocytes [#/area] in Urine sediment by Automated countOrdered By: Nat Gutierrez on 59-32-7535VRO Auto (Urine sed) [#/Area]5-9 [HPF]High0-4FMercy HospitalLeukocytes [#/volume] corrected for nucleated erythrocytes in Blood by Automated counOrdered By: Nat Gutierrez on 33-86-7680IJG corrected for nucl RBC Auto (Bld) [#/Vol]8.8 10*3/uL3.8-11.6 Flower HospitalLeukocytes [#/volume] in Blood by Automated countOrdered By: Nat Gutierrez on 65-99-3734DMH (Bld) [#/Vol]8.8 10*3/uLNormal 3.8-11.6FMercy HospitalComment on above:Performed By: #### PRL, BNP, CMP, HS TROP, LIPASE, PT, CBC, CK ####[facility] [address] [place] [address] USALipase [Enzymatic activity/volume] in Serum or PlasmaOrdered By: Nat Gutierrez on 34-69-8333Lqbntu [Catalytic activity/Vol]19.0 U/OLpiwzi88.0-82.0Flower HospitalComment on above:Performed By: #### VALP #### [facility] [address] [place] [address] USALymphocytes [#/volume] in Blood by Automated countOrdered By: Nat Gutierrez on 14-03-8231Oceqnggdcab (Bld) [#/Vol]1.5 10*3/uLNormal 1.00-4.8Flower HospitalComment on above:Performed By: #### PRL, BNP, CMP, HS TROP, LIPASE, PT, CBC, CK ####[facility] [place] [id number] USALymphocytes/100 leukocytes in Blood by Automated countOrdered By: Nat Gutierrez on 72-36-1317Afgkqqdnpmw/100 WBC (Bld)17.4 %Normal.Flower HospitalComment on above:Performed By: #### PRL, BNP, CMP, HS TROP, LIPASE, PT, CBC, CK ####[place] [address] [place] [address] [facility] [Entitic mass] by Automated countOrdered By: Nat Gutierrez on 72-65-8502VXR (RBC) [Entitic mass] 31.1 jeTrvlcx25.7-34.3FMercy HospitalComment on above: Performed By: #### PRL, BNP, CMP, HS TROP, LIPASE, PT, CBC, CK ####[address] [address] [facility] Auto (RBC) [Mass/Vol]Ordered By: Nat Gutierrez on 70-20-5879XRDO (RBC) [Mass/Vol]32.6 g/dL 32.0-35.0[facility] [Entitic volume] by Automated countOrdered By: Nat Gutierrez on 86-46-0009FZM (RBC) [Entitic vol]95.5 fL Pglkpa62-184UzfldvdkzFlower HospitalComment on above:Performed By: #### PRL, BNP, CMP, HS TROP, LIPASE, PT, CBC, CK ####[address] [address] USAMonocyte distribution width [Entitic volume] in Blood by AutomatedOrdered By: Nat Gutierrez on 67-90-5412Gracmjgl distribution width Auto (Bld) [Entitic vol]20.18 %High0.00-20.00Flower HospitalComment on above:For adults in ED, MDW > 20.0 may be associated with a higher risk of sepsis during the first 12 hrs of hospital admissionMonocytes [#/volume] in Blood by Automated countOrdered By: Nat Gutierrez on 10-97-6741Qzoalitzy (Bld) [#/Vol]0.8 10*3/uLNormal0.0-0.8Flower HospitalComment on above:Performed By: #### PRL, BNP, CMP, HS TROP, LIPASE, PT, CBC, CK ####[address] [address] USAMonocytes/100 leukocytes in Blood by Automated count Ordered By: Nat Gutierrez on 40-77-5176Saijxfhlx/100 WBC (Bld)9.0 %Normal. Flower HospitalComment on above:Performed By: #### PRL, BNP, CMP, HS TROP, LIPASE, PT, CBC, CK ####[place] [address] [place] [address] USAMucus [Presence] in Urine by AutomatedOrdered By: Nat Gutierrez on 79-31-9698Vsryx Auto Ql (U)Rare [LPF]Flower HospitalNeutrophils [#/volume] in Blood by Automated countOrdered By: Nat Gutierrez on 28-46-5156Bkovcedesne (Bld) [#/Vol]6.3 10*3/uLNormal1.8-7.7 Flower HospitalComment on above:Performed By: #### PRL, BNP, CMP, HS TROP, LIPASE, PT, CBC, CK ####[address] [address] USANeutrophils/100 leukocytes in Blood by Automated countOrdered By: Nat Gutierrez on 80-51-6924Nwglnrloqyg/100 WBC (Bld)71.9 % Normal.Flower HospitalComment on above:Performed By: #### PRL, BNP, CMP, HS TROP, LIPASE, PT, CBC, CK ####[address] [address] USANitrite Test strip Ql (U)Ordered By: Nat Gutierrez on 59-12-7934Wnrqpip Ql (U)NegativeNegativeFlower HospitalNo Panel InformationOrdered By: Nat Gutierrez on 62-37-0712Qhpvigtcb GFR (CKD-EPI)> 60.0 mL/MinFlower HospitalPharmacy Creatinine Clearance (Kfab435.26Flower HospitalNucleated erythrocytes [Presence] in Blood by Automated countOrdered By: Nat Gutierrez on 10-04-2024 Nucleated RBC Auto Ql (Bld)0.0 /100{WBC}0-0.5FMercy Hospital Platelet mean volume [Entitic volume] in Blood by Automated countOrdered By: Nat Gutierrez on 15-79-4712Ptrfqcno mean volume (Bld) [Entitic vol]8.7 fLNormal 6.3-10.7FMercy HospitalComment on above:Performed By: #### PRL, BNP, CMP, HS TROP, LIPASE, PT, CBC, CK ####[facility] [address] [place] [address] USAPlatelets [#/volume] in Blood by Automated countOrdered By: Nat Gutierrez on 16-14-2480Aqdkpjfjp (Bld) [#/Vol] 251 10*3/eSVswvtd333-248NnrvonyjcFlower HospitalComment on above: Performed By: #### PRL, BNP, CMP, HS TROP, LIPASE, PT, CBC, CK ####[facility] [place] [id number] USAPotassium [Moles/volume] in Serum or PlasmaOrdered By: Nat Gutierrez on 10-04-2024 Potassium [Moles/Vol]4.3 mmol/LNormal3.5-5.1FMercy Hospital Comment on above:Performed By: #### VALP #### [facility] [address] [place] [address] USAProlactinon 09-86-4065Hmkxycuxk31.69 ng/mLNormal3.34-26.72 [facility] Physician GroupComment on above:Result Comment: PERFORMED BY: [place] [address] PATHOLOGIST HEDDLE MACHINE OPERATOR SHAWN KIM M.D.Performed By: #### VALP #### [facility] [address] [place] [address] USAProlactin [Mass/volume] in Serum or PlasmaOrdered By: Nat Gutierrez on 07-42-8555Ljcgrlxlm [Mass/Vol]26.69 ng/mL3.34-26.72Flower HospitalProtein Test strip (U) [Mass/Vol]Ordered By: Nat Gutierrez on 11-35-6861Wrsoxit (U) [Mass/Vol]NegativeNegativeFlower HospitalProtein [Mass/volume] in Serum or PlasmaOrdered By: Nat Gutierrez on 28-96-0148Uwzutdz [Mass/Vol]7.4 g/dLNormal6.4-8.9Flower HospitalComment on above:Performed By: #### VALP #### [facility] [address] [place] [address] USAProthrombin time (PT)Ordered By: Nat Gutierrez on 50-31-1758PV Coag (PPP) [Time]11.0 sNormal9.0-12.9Flower HospitalComment on above:A hematocrit value greater than 55% may lead to inaccurate results in coagulation testing. Patientshaving hematocrit values >55% require a special collection tube for coagulation studies. Please contact the laboratory at [phone] for redraw instructions.Result Comment: A hematocrit value greater than 55% may lead to inaccurate results in coagulation testing. Patients having hematocrit values >55% require a special collection tube for coagulation studies. Please contact the laboratory at [phone] for redraw instructions.Performed By: #### VALP #### [place] [address] USASerum globulin measurement by calculation (mass/volume) Ordered By: Nat Gutierrez on 37-79-2879Yzezfwil (S) [Mass/Vol]3.5 g/dLNormal Flower HospitalComment on above:Performed By: #### VALP #### [place] [address] USASerum or plasma albumin/globulin mass ratioOrdered By: Nat Gutierrez on 39-18-4362Ztqplax/Globulin [Mass ratio]1.1 {ratio}Normal Flower HospitalComment on above:Performed By: #### VALP #### [place] [address] USASerum or plasma anion gap determinationOrdered By: Nat Gutierrez on 53-46-7147Hxhga gap [Moles/Vol]7.5 mmol/LNormal6.0-15.0Flower HospitalComment on above:Performed By: #### VALP #### [place] [address] USASodium [Moles/volume] in Serum or PlasmaOrdered By: Nat Gutierrez on 10-40-2236Arnari [Moles/Vol]136 mmol/PRvsnzk990-321KulojghxgFlower HospitalComment on above:Performed By: #### VALP #### [place] [id number] USASpecific gravity Test strip (U) [Rel density]Ordered By: Nat Gutierrez on 44-08-9854Zftgyfvk gravity (U) [Rel density]1.046High 1.001-1.030Flower HospitalTroponin I High Sensitivityon 92-63-1654Ziqffieq I High Pacwduefxjh0Mrsqrl2-83Peu [facility] Comment on above:Result Comment: The Troponin units of report have been changed to meet the Chest Pain Accreditation requirement, element EC5.M1l2. Troponin units are changed from pg/ml to ng/L. Also, the decimal is removed and results are in whole numbers. PERFORMED BY: [place] [address] PATHOLOGIST HEDDLE MACHINE OPERATOR SHAWN KIM M.D.Performed By: #### HS TROP #### [place] [address] USATroponin I High Kkbltrmuiiv7Pzkfwi2-80Mqn [facility] Physician GroupComment on above:Result Comment: The Troponin units of report have been changed to meet the Chest Pain Accreditation requirement, element EC5.M1l2. Troponin units are changed from pg/ml to ng/L. Also, the decimal is removed and results are in whole numbers. PERFORMED BY: [place] [address] PATHOLOGIST HEDDLE MACHINE OPERATOR SHAWN KIM M.D.Performed By: #### VALP #### [place] [address] USATroponin I.cardiac [Mass/volume] in Serum or Plasma by Detection limit <= 0.01 ng/mLOrdered By: Nat Gutierrez on 82-58-9318Seiyujvp I.cardiac DL <= 0.01 ng/mL [Mass/Vol]6 ng/LFlower Hospital Comment on above:The Troponin units of report have been changed to meet the Chest Pain Accreditation requirement, element EC5.M1l2. Troponin units are changed from pg/ml to ng/L. Also, the decimal is removed and results are in whole numbers.Urea nitrogen [Mass/volume] in Serum or PlasmaOrdered By: Nat Gutierrez on 63-78-1552Oqzw nitrogen [Mass/Vol]14 mg/dLNormal7-Flower HospitalComment on above:Performed By: #### VALP #### [place] [address] USAUrine Cultureon 11-85-5807Qdzykpyy identified Cx Nom (U) <9,000 colonies/ml mixed bacterial skin contaminants 2 Days PERFORMED BY: [place] [address] PATHOLOGIST HEDDLE MACHINE OPERATOR SHAWN KIM M.D.[facility] Physician GroupComment on above: Performed By: #### CHAD MARIEUAPLUS ####[address] USAUrine cultureOrdered By: Nat Gutierrez on 05-60-6883Wiwacnao identified Cx Nom (U)2 DaysFlower Hospital Urobilinogen Test strip (U) [Mass/Vol]Ordered By: Nat Gutierrez on 10-04-2024 Urobilinogen (U) [Mass/Vol]Normal mg/dLNormalFlower HospitalpH of Urine by Test stripOrdered By: Nat Gutierrez on 58-62-6920sQ (U)6.5 [pH] Normal5.0-9.0Flower HospitalComment on above:Order Comment: Name Collection Type:: Clean-Voided MidstreamPerformed By: #### CUOmid ADDONUAPLUS ####[address] USAAlanine aminotransferase [Enzymatic activity/volume] in Serum or PlasmaOrdered By: Alize Arrington on 74-01-8293HXD [Catalytic activity/Vol]14 U/LNormal7-52Flower HospitalComment on above:Performed By: #### LIPID, CMP, TSH3, B12, T4F, [id number] #### [facility] [address] [place] [address] USAAlbumin [Mass/volume] in Serum or Plasma by Bromocresol green (BCG) dye binding methoOrdered By: Alize Arrington on 14-47-4620Psouaxg BCG dye [Mass/Vol]3.9 g/dL3.5-5.7FMercy HospitalAlkaline phosphatase [Enzymatic activity/volume] in Serum or PlasmaOrdered By: Alize Arrington on 90-51-4434MRI [Catalytic activity/Vol]54 U/AMvuxjs14-490TzgcitrxwFlower HospitalComment on above:Performed By: #### LIPID, CMP, TSH3, B12, T4F, [id number] #### [place] [address] USAAspartate aminotransferase [Enzymatic activity/volume] in Serum or PlasmaOrdered By: Alize Arrington on 11-16-8048GGX [Catalytic activity/Vol]13 U/PFekmty73-58YqerxeherFlower HospitalComment on above: Performed By: #### LIPID, CMP, TSH3, B12, T4F, [id number] #### [place] [address] USABasophils [#/volume] in Blood by Automated countOrdered By: Alize Arrington on 65-59-9348Kkiygknoh (Bld) [#/Vol]0.1 10*3/uLNormal0.0-0.2 Flower HospitalComment on above:Result Comment: PERFORMED BY: [place] [address] PATHOLOGIST HEDDLE MACHINE OPERATOR SHAWN KIM M.D.Performed By: #### VALP #### [place] [address] USABasophils/100 leukocytes in Blood by Automated count Ordered By: Alize Arrington on 66-04-8687Fhfotjeyw/100 WBC (Bld)1.5 %Normal. Flower HospitalComment on above:Performed By: #### VALP #### [facility] [address] [place] [address] USABilirubin.total [Mass/volume] in Serum or PlasmaOrdered By: Alize Arrington on 08-85-7531Avtocxiry [Mass/Vol]0.4 mg/dLNormal0.3-1.0 Flower HospitalComment on above:Performed By: #### LIPID, CMP, TSH3, B12, T4F, [id number] #### [facility] [address] [place] [address] USACalcium [Mass/volume] in Serum or PlasmaOrdered By: Alize Arrington on 00-56-6297Nakaxkf [Mass/Vol]8.9 mg/dLNormal8.6-10.3FMercy HospitalComment on above:Performed By: #### LIPID, CMP, TSH3, B12, T4F, [id number] #### [place] [address] USACarbon dioxide, total [Moles/volume] in Serum or Plasma Ordered By: Alize Arrington on 03-01-5395QR1 [Moles/Vol]30.6 mmol/WXfhmvd35.0-31.0 Flower HospitalComment on above:Performed By: #### LIPID, CMP, TSH3, B12, T4F, [id number] #### [place] [address] USAChloride [Moles/volume] in Serum or PlasmaOrdered By: Alize Arrington on 29-09-9962Ypmaebpc [Moles/Vol]99 mmol/XSwidjs22-470BmnzhsjlaFlower HospitalComment on above:Performed By: #### LIPID, CMP, TSH3, B12, T4F, [id number] #### [place] [address] USACholesterol [Mass/volume] in Serum or PlasmaOrdered By: Alize Arrington on 80-45-5890Okigqxtxffm [Mass/Vol]195 mg/oSZynlbj818-090XbdogxbgkFlower HospitalComment on above:Chol less than 200 mg/dl low riskChol 201-239 mg/dl borderline riskChol 240 mg/dl and greater high riskResult Comment: Chol less than 200 mg/dl low risk Chol 201-239 mg/dl borderline risk Chol 240 mg/dl and greater high riskPerformed By: #### LIPID, CMP, TSH3, B12, T4F, [id number] #### [facility] [address] [place] [address] USACholesterol in HDL [Mass/volume] in Serum or PlasmaOrdered By: Alize Arrington on 49-38-0407Klbsenrbsam in HDL [Mass/Vol]40 mg/aFIwszzw41-02 Flower HospitalComment on above:HDL CHOL ATP-III CLASSIFICATION Cardiovascular RiskHDL > or equal to 60 mg/dL LOWHDL < 40 mg/dL HIGHResult Comment: HDL CHOL ATP-III CLASSIFICATION Cardiovascular Risk HDL > or equal to 60 mg/dL LOW HDL < 40 mg/dL HIGHPerformed By: #### LIPID, CMP, TSH3, B12, T4F, [id number] #### [facility] [address] [place] [address] USACholesterol in LDL Calc [Mass/Vol]Ordered By: Alize Arrington on 51-22-1270Mcgzcfinwej in LDL [Mass/Vol]132 mg/dLHigh0-100Flower HospitalComment on above:LDL ATP III CLASSIFICATIONLDL less than 100 mg/dL OptimalLDL 100-129 mg/dL Near or above fsvxahmVQN063-587 mg/dL Borderline highLDL 160-189 mg/dL HighLDL greater than 189 mg/dL Very high Cholesterol in VLDL Calc [Mass/Vol]Ordered By: Alize Arrington on 08-25-2024 Cholesterol in VLDL [Mass/Vol]22 mg/dLFlower HospitalComplete Blood Count Auto Diffon 86-57-5380Eqlb Corpuscular HGB Conc34.0 g/dLNormal 32.0-35.0The [facility] Physician GroupComment on above:Performed By: #### VALP #### [facility] [address] [place] [address] USANRBC%0.1 /100{WBC}Normal0-0.5The [facility] Comment on above:Performed By: #### VALP #### [place] [address] USAWhite Blood Count8.5 [CFU]/mLNormal3.8-11.6The [facility] Physician [facility] SystemComment on above:Performed By: #### VALP #### [place] [address] USAComprehensive Metabolic Panelon 62-45-9780Apgxwwm [Mass/Vol]3.9 g/dLNormal3.5-5.7The [facility]emer Health SystemComment on above: Performed By: #### LIPID, CMP, TSH3, B12, T4F, [id number] #### [place] [address] USAGFR/1.73 sq M.predicted MDRD (S/P/Bld) [Vol rate/Area] mL/min/{1.73_m2}NormalThe Holy Redeemer Health SystemComment on above:Performed By: #### LIPID, CMP, TSH3, B12, T4F, [id number] #### [place] [address] USACreatinine [Mass/volume] in Serum or PlasmaOrdered By: Alize Arrington on 07-90-2690Yuxqkbeppb [Mass/Vol]0.65 mg/dLNormal0.60-1.20 Flower HospitalComment on above:Performed By: #### LIPID, CMP, TSH3, B12, T4F, [id number] #### [place] [address] USAEosinophils [#/volume] in Blood by Automated countOrdered By: Alize Arrington on 05-75-0260Aatonkippws (Bld) [#/Vol]0.1 10*3/uLNormal 0.0-0.45Flower HospitalComment on above:Performed By: #### VALP #### [facility] [address] [place] [address] USAEosinophils/100 leukocytes in Blood by Automated count Ordered By: Alize Arrington on 37-40-6415Kseyyovvkrv/100 WBC (Bld)1.5 %Normal. Flower HospitalComment on above:Performed By: #### VALP #### [place] [address] USAErythrocyte distribution width [Ratio] by Automated count Ordered By: Alize Arrington on 55-11-8264Gthyvheiqkp distribution width (RBC) [Ratio]14.6 %Vtwnsb90.9-15.3FMercy HospitalComment on above: Performed By: #### VALP #### [place] [address] USAErythrocytes [#/volume] in Blood by Automated countOrdered By: Alize Arrington on 09-30-1451KLW (Bld) [#/Vol]4.15 10*6/uLNormal3.60-5.00 Flower HospitalComment on above:Performed By: #### VALP #### [place] [id number] USAGlucose [Mass/volume] in Serum or PlasmaOrdered By: Alize Arrington on 75-88-8389Lhoydki [Mass/Vol]101 mg/bEMyqr06-712OychbctaoFlower HospitalComment on above:ADA recommended reference rangeRandom Glucose Reference Range is dependent on time and content of last meal. Glucose of more than 200 mg/dL in a nonstressed, ambulatory subject supports the diagnosisof Diabetes Mellitus.Result Comment: Random Glucose Reference Range is dependent on time and content of last meal. Glucose of more than 200 mg/dL in a nonstressed, ambulatory subject supports the diagnosis of Diabetes Mellitus. ADA recommended reference rangePerformed By: #### LIPID, CMP, TSH3, B12, T4F, [id number] #### [place] [id number] USAHematocrit [Volume Fraction] of Blood by Automated count Ordered By: Alize Arrington on 82-85-1467Qvbrohkhuw (Bld) [Volume fraction]39.0 % Lnvsbs59.0-46.4FMercy HospitalComment on above:Performed By: #### VALP #### [facility] [address] [place] [id number] USAHemoglobin [Mass/volume] in BloodOrdered By: Alize Arrington on 98-29-5870Xbtzrowfyt (Bld) [Mass/Vol]13.3 g/iKWhwbmu52.8-15.4FMercy HospitalComment on above:Performed By: #### VALP #### [facility] [address] [place] [id number] USALeukocytes [#/volume] corrected for nucleated erythrocytes in Blood by Automated counOrdered By: Alize Arrington on 48-56-1322OPH corrected for nucl RBC Auto (Bld) [#/Vol]8.5 10*3/uL3.8-11.6FMercy HospitalLeukocytes [#/volume] in Blood by Automated countOrdered By: Alize Arrington on 45-77-5215BPQ (Bld) [#/Vol]8.5 10*3/uLNormal3.8-11.6FMercy HospitalComment on above:Performed By: #### VALP #### [facility] [address] [place] [id number] USALipid Panelon 23-92-0596ZCE Cholesterol,Zmudplwmyb018 mg/dLHigh0-100The [facility] Physician GroupComment on above:Result Comment: LDL ATP III CLASSIFICATION LDL less than 100 mg/dL Optimal LDL 100-129 mg/dL Near or above optimal LDL 130-159 mg/dL Borderline high LDL 160-189 mg/dL High LDL greater than 189 mg/dL Very highPerformed By: #### LIPID, CMP, TSH3, B12, T4F, [id number] #### [place] [id number] USATriglyceride w/Fmerhx499 mg/dLNormal0-149The [facility] Physician GroupComment on above:Result Comment: TRIG ATP III CLASSIFICATION TRIG less than 150 mg/dL Normal TRIG 150-199 mg/dL Borderline high TRIG 200-500 mg/dL High TRIG greater than 500 mg/dL Very high Standard traceable to the Center for Disease Conrtrol and Prevention (CDC) test method.Performed By: #### LIPID, CMP, TSH3, B12, T4F, [id number] #### [place] [address] USAVLDL TSTBREKTOQT03 mg/dLNoBlowing Rock Hospital Physician GroupComment on above:Performed By: #### LIPID, CMP, TSH3, B12, T4F, [id number] #### [place] [address] USALymphocytes [#/volume] in Blood by Automated countOrdered By: Alize Arrington on 51-55-7667Ccjfvqykxzr (Bld) [#/Vol]1.5 10*3/uLNormal 1.00-4.8Flower HospitalComment on above:Performed By: #### VALP #### [place] [address] USALymphocytes/100 leukocytes in Blood by Automated count Ordered By: Alize Arrington on 94-71-4058Wvyaakxlphu/100 WBC (Bld)18.2 %Normal. Flower HospitalComment on above:Performed By: #### VALP #### [address] [Entitic mass] by Automated countOrdered By: Alize Arrington on 60-30-7096ITT (RBC) [Entitic mass]31.9 ubYflxqd18.7-34.3FMercy HospitalComment on above:Performed By: #### VALP #### [address] Auto (RBC) [Mass/Vol]Ordered By: Alize Arrington on 97-63-4692FNZZ (RBC) [Mass/Vol]34.0 g/dL32.0-35.0Flower HospitalMCV [Entitic volume] by Automated countOrdered By: Alize Arrington on 54-88-0964CSU (RBC) [Entitic vol]93.8 mNBruxwf01-385AcmlhrmmbFlower HospitalComment on above:Performed By: #### VALP #### [facility] [address] [place] [address] USAMonocytes [#/volume] in Blood by Automated countOrdered By: Alize Arrington on 46-21-9639Dqfnktvtw (Bld) [#/Vol]0.7 10*3/uLNormal0.0-0.8 Flower HospitalComment on above:Performed By: #### VALP #### [facility] [address] [place] [address] USAMonocytes/100 leukocytes in Blood by Automated count Ordered By: Alize Arrington on 22-53-3479Yfepvmnxs/100 WBC (Bld)8.8 %Normal. Flower HospitalComment on above:Performed By: #### VALP #### [facility] [address] [place] [address] USANeutrophils [#/volume] in Blood by Automated countOrdered By: Alize Arrington on 37-69-7313Ovyzjizmjoo (Bld) [#/Vol]5.9 10*3/uLNormal1.8-7.7 Flower HospitalComment on above:Performed By: #### VALP #### [facility] [address] [place] [id number] USANeutrophils/100 leukocytes in Blood by Automated count Ordered By: Alize Arrington on 86-32-1684Iizkdsnucgl/100 WBC (Bld)70.0 %Normal. Flower HospitalComment on above:Performed By: #### VALP #### [place] [id number] USANo Panel InformationOrdered By: Alize Arrington on 19-78-5179Xaooouuul GFR (CKD-EPI)> 60.0 mL/MinFlower Hospital Pharmacy Creatinine Clearance (ChemN/Lutheran HospitalNucleated erythrocytes [Presence] in Blood by Automated countOrdered By: Alize Arrington on 51-38-5075Ocantllfp RBC Auto Ql (Bld)0.1 /100{WBC}0-0.5FMercy HospitalPlatelet mean volume [Entitic volume] in Blood by Automated count Ordered By: Alize Arrington on 29-68-5236Rajzsatl mean volume (Bld) [Entitic vol] 8.8 fLNormal6.3-10.7FMercy HospitalComment on above:Performed By: #### VALP #### [facility] [address] [place] [address] USAPlatelets [#/volume] in Blood by Automated countOrdered By: Alize Arrington on 65-73-0988Bammazvxt (Bld) [#/Vol]255 10*3/kZYghmpd132-644 Flower HospitalComment on above:Performed By: #### VALP #### [place] [address] USAPotassium [Moles/volume] in Serum or PlasmaOrdered By: Alize Arrington on 25-99-6335Znsuvyyor [Moles/Vol]4.9 mmol/LNormal3.5-5.1FMercy HospitalComment on above:Performed By: #### LIPID, CMP, TSH3, B12, T4F, [id number] #### [place] [address] USAProtein [Mass/volume] in Serum or PlasmaOrdered By: Alize Arrington on 34-89-8459Rakplkk [Mass/Vol]7.4 g/dLNormal6.4-8.9Flower HospitalComment on above:Performed By: #### LIPID, CMP, TSH3, B12, T4F, [id number] #### [place] [address] USASerum globulin measurement by calculation (mass/volume) Ordered By: Alize Arrington on 51-85-3055Ylednflb (S) [Mass/Vol]3.5 g/dLNormal Flower HospitalComment on above:Performed By: #### LIPID, CMP, TSH3, B12, T4F, [id number] #### [place] [id number] USASerum or plasma albumin/globulin mass ratioOrdered By: Alize Arrington on 81-18-8735Tzzttos/Globulin [Mass ratio]1.1 {ratio}Normal Flower HospitalComment on above:Performed By: #### LIPID, CMP, TSH3, B12, T4F, [id number] #### [facility] [address] [place] [address] USASerum or plasma anion gap determinationOrdered By: Alize Arrington on 92-37-7743Gdpzn gap [Moles/Vol]11.3 mmol/LNormal6.0-15.0Flower HospitalComment on above:Performed By: #### LIPID, CMP, TSH3, B12, T4F, [id number] #### [facility] [address] [place] [address] USASerum or plasma total cholesterol/high density lipoprotein (HDL) cholesterol mass ratOrdered By: Alize Arrington on 08-25-2024 Cholesterol.total/Cholesterol in HDL [Mass ratio]4.9 {ratio}Normal<5.0Flower HospitalComment on above:Performed By: #### LIPID, CMP, TSH3, B12, T4F, [id number] #### [facility] [address] [place] [id number] USASodium [Moles/volume] in Serum or PlasmaOrdered By: Alize Arrington on 57-27-2688Tumhnk [Moles/Vol]136 mmol/OTtbkgg317-856IyjpffbhoFlower HospitalComment on above:Performed By: #### LIPID, CMP, TSH3, B12, T4F, [id number] #### [facility] [address] [place] [address] USAThyrotropin [Units/volume] in Serum or PlasmaOrdered By: Alize Arrington on 20-21-6858WET Qn5.58 m[IU]/LHigh0.45-5.33Flower HospitalComment on above:Performed By: #### LEV #### [facility] , #### CBC, CMP #### [facility] [address] [place] [id number] USAThyroxine (T4) free [Mass/volume] in Serum or Plasma Ordered By: Alize Arrington on 70-27-5104Diak T4 [Mass/Vol]0.91 ng/dLNormal 0.61-1.12Flower HospitalComment on above:Performed By: #### LEV #### [facility] , #### CBC, CMP #### [facility] [address] [place] [id number] USATriglyceride [Mass/volume] in Serum or PlasmaOrdered By: Alize Arrington on 00-51-1653Rrjlvifnqqtx [Mass/Vol]113 mg/dL0-149Flower HospitalComment on above:TRIG ATP III CLASSIFICATIONTRIG less than 150 mg/dL NormalTRIG 150-199 mg/dL Borderline highTRIG 200-500 mg/dL High TRIG greater than 500 mg/dL Very highStandard traceable to the Center for Disease Conrtrol and Prevention (CDC) test method.Urea nitrogen [Mass/volume] in Serum or PlasmaOrdered By: Alize Arrington on 46-51-6403Klas nitrogen [Mass/Vol] 14 mg/dLNormal7-25Flower HospitalComment on above:Performed By: #### LIPID, CMP, TSH3, B12, T4F, [id number] #### [facility] [address] [place] [id number] USAVitamin B12 ser/plasOrdered By: Alize Arrington on 96-77-8571Lrrplbsoo (Vitamin B12) [Mass/Vol]415 pg/tCKkolvx995-287UjdatalhzFlower HospitalComment on above:Performed By: #### LIPID, CMP, TSH3, B12, T4F, [id number] #### [facility] [address] [place] [id number] USAVitamin D 25 Hydroxy Totalon 71-57-7091Ugtaqqo D 25 Hydroxy Total28.9 ng/nUKmq21-515Irn [facility] Physician GroupComment on above: Result Comment: VITAMIN D STATUS 25(OH)VITAMIN D RANGE (ng/mL) Deficient <20 Insufficient 20 to <30 Sufficient 30 to 100 Reference: Sherry Ovalles, Camron CASILLAS, et al. Evaluation,treatment, and prevention of vitamin D deficiency; an Endocrine Society clinical practice guideline. JCEM. 2010; 96(7):191-. PERFORMED BY: [facility] [address] [place] [address] PATHOLOGIST HEDDLE MACHINE OPERATOR SHAWN KIM M.D.Performed By: #### LEV #### [facility] , #### CBC, CMP #### [facility] [address] StreetVitamin D+Metabolites [Mass/volume] in Serum or Plasma Ordered By: Alize Arrington on 97-77-6079Irivhom D+Metabolites [Mass/Vol]28.9 ng/wGDhs37-618PqgbjkvesFlower HospitalComment on above:VITAMIN D STATUS 25(OH)VITAMIN D RANGE (ng/mL) Deficient <20 Insufficient 20 to <26Zqujmipsnj41 to 100Reference: Sherry Ovalles, Camron CASILLAS, et al. Evaluation,treatment, and prevention of vitamin D deficiency; an Endocrine Society clinical practice guideline. JCEM. 2010; 96(7):1911-.No Panel Informationon 50-95-8826Wfov Tone Audiometry Audio indicated a mild to moderate sensorineural hearing loss 500-4000 Hz, bilaterally. Many false positives present during testing and reliability is poor. However, results seem to be relatively consistent with previous results recorded in 2020. [facility] HealthcareUrology Office/Clinic Noteon 50-95-1891Omcijgi Office/Clinic NoteUrology Office/Clinic Note Chief Complaint referall for frequent UTI HPI Staff New Pt. 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 She was on cranberry pills that did not help. Pt stopped drinking pop only drinks water and cranberry. Pt has had a UTI the last two times she was at dr alan. c/o of dysuria, and abdominal pain. No visible blood in urine per pt and caregiver History of Present Illness staff HPI reviewed and agree. Review of Systems PHQ Score Initial Depression Screen Score: 0 SCORE no fever, chills, malaise, myalgia. no rash/lesions. no chest pain, palpitations, or SOB. no abdominal pain, nausea, vomiting. no unilateral calf swelling, redness, pain Physical Exam Vitals & Measurements HR: 81(Peripheral) BP: 125/79 HT: 55 in HT: 140 cm WT: 74.1 kg WT: 163.362 lb BMI: 37.81 General: nontoxic, NAD Mouth: moist mucosa Lungs: normal respiratory effort Cardio: regular rate, good distal perfusion Abdomen: nondistended, no suprapubic distention or tenderness, no CVA tenderness Neurologic: Grossly normal Skin: No rashes or suspicious lesions Assessment/Plan Kelsey Graves 43 yo female presents here as a new patient referral from Dr. Delgado Valdez for urinary tract infection with hematuria. Patient has down syndrome. Lives in [place] Accompanied by caregiver today. Lumbar CT 05/25/24 independently reviewed by myself today - no hydronephrosis, no obvious stones. Minimal/rare incontinence. 1. Dysuria (R30.0: Dysuria) Caregiver reports pt never c/o dysuria at home. But when they get to the doctor's office for check-up or other reasons, then she says she has burning, and they always tell her she has a UTI. No change noted w abx (since she doesn't c/o burning aside from at office). Urine Cx 11/04/23, 04/19/24, and 05/25/24 all show skin contam/mixed medina only. 01/15/24 shows GBS which also can be contaminate. UA today shows trace hgb small LE but pt completely asx. No indication to send for C&S. 2. Microhematuria (R31.29: Other microscopic hematuria) Denies gross hematuria. All microscopy shows 0-3 RBCs. Advised pt/caregiver that is considered insignificant microscopic hematuria. There is no indication for further work-up (imaging, cysto, cyto/FISH) at this time. Orders: Body Mass Index (BMI) documented 3008F Current tobacco non-user 1036F Depression Screening Negative 3352F Influenza immunization status assessed 1030F Medication list documented in medical record 1159F Most recent diastolic blood pressure <80 mm Hg 3078F Review of all meds by a prescribing practitioner or clinical pharmacist documented in EHR 1160F Systolic BP <130 mm Hg (Most Recent) 3074F Urnls Dip Stick Auto w/o Microscopy POC 42785 Follow-up With When Contact Information RAHEL BERMEO, KELSEY Denise, URL [address] [place] [place] [address] Additional Instructions: Follow up PRN or sooner if needed. Patient Education Antibiotic Medicine, Adult I, Ladonna Hamilton, personally scribed for DEION Casper on 06/23/2024 15:36:26. . Documentation recorded by the erasto Hamilton accurately reflects the services(s) I performed and decisions made by me. Authenticated by Kelsey Cisneros PA-C on 06/23/2024 15:43:48. Problem List/Past Medical History Ongoing Acute diastolic heart failure Acute on chronic respiratory failure with hypoxia and hypercapnia Allergic rhinitis Altered mental status Bilateral hearing loss Chronic obstructive pulmonary disease Developmental delay Diabetes mellitus Diabetes mellitus with hypoglycemia Diabetic mononeuropathy Down syndrome Encephalopathy Generalized anxiety disorder Gross hematuria History of seizure Hypertension Hypothyroidism Hypoventilation associated with obesity syndrome Insomnia related to another mental disorder Macroglossia Malfunction of continuous positive airway pressure (CPAP) or bilevel positive airway pressure (BPAP) machine Mild intellectual disability Morbid obesity Obstructive sleep apnea syndrome Pure hypercholesterolemia Sensorineural hearing loss UTI (urinary tract infection) Vitamin D deficiency Historical No qualifying data Medications betamethasone-clotrimazole Top 0.05%-1% Crm 15 gram Depakote, Oral, TID Fiberlax 625 mg oral tablet levetiracetam 750 mg oral tablet, extended release, Oral, Daily levothyroxine 75 mcg (0.075 mg) Tab Milk of Magnesia, Oral Natural Fiber Therapy, Oral nystatin, Oral Oxygen sertraline 100 mg Tab simvastatin 20 mg Tab Allergies No Known Medication Allergies Social History Alcohol Substance Abuse Tobacco Never (less than 100 in lifetime) Tobacco Use:. Never Smokeless Tobacco Use:., 06/23/2024 Immunizations Vaccine Date Status influenza virus vaccine, inactivated 12/25/19 (more content not included)... NormalGreen Cross HospitalComment on above:Result Comment: Electronically Signed By: KELSEY CISNEROS PA-C\.br\Date and Time Signed: 06/23/2514:49 EDT\.br\Electronically Co-Signed By: Ladonna Hamilton.br\Date and Time Co- Signed: 06/23/24 15:36 EDTAlanine aminotransferase [Enzymatic activity/volume] in Serum or PlasmaOrdered By: PROVIDER TEMP on 09-18-1291HPL [Catalytic activity/Vol]Alanine aminotransferase [Enzymatic activity/volume] in Serum or Plasma7-52Flower HospitalAlbumin [Mass/volume] in Serum or Plasma by Bromocresol green (BCG) dye binding methoOrdered By: PROVIDER TEMP on 31-07-1450Tuwtisg BCG dye [Mass/Vol]Albumin [Mass/volume] in Serum or Plasma by Bromocresol green (BCG) dye binding metho3.5-5.7FMercy HospitalAlkaline phosphatase [Enzymatic activity/volume] in Serum or PlasmaOrdered By: PROVIDER TEMP on 04-12-4476PZS [Catalytic activity/Vol]Alkaline phosphatase [Enzymatic activity/volume] in Serum or Tbwdds28-865YpzeeldvfFlower HospitalAppearance of UrineOrdered By: Lolis Ludwig on 07-72-4106Djedwyfrqs (U) Urine appearanceCleFisher-Titus Medical CenterAspartate aminotransferase [Enzymatic activity/volume] in Serum or PlasmaOrdered By: PROVIDER TEMP on 56-91-1757XMZ [Catalytic activity/Vol]Aspartate aminotransferase [Enzymatic activity/volume] in Serum or EeamxyKgz42-15VbxvamhrkFlower Hospital Bacteria [Presence] in Urine by AutomatedOrdered By: Lolis Ludwig on 73-91-6532Fxzsmdpy Auto Ql (U)Bacteria [Presence] in Urine by AutomatedNone Seen Flower HospitalBasophils Auto (Bld) [#/Vol]Ordered By: PROVIDER TEMP on 48-65-5878Mxtumadth (Bld) [#/Vol]Automated basophil count 0.0-0.2FMercy HospitalBasophils/100 WBC Auto (Bld)Ordered By: PROVIDER TEMP on 38-24-3150Zoewplubx/100 WBC (Bld)Automated basophil %.Flower HospitalBilirubin Test strip Ql (U)Ordered By: Lolis Ludwig on 85-53-4087Vsqttckvz Ql (U)Bilirubin.total [Presence] in Urine by Test strip NegativeFlower HospitalBilirubin.total [Mass/volume] in Serum or PlasmaOrdered By: PROVIDER TEMP on 51-90-1794Pyoxkjrvt [Mass/Vol] Bilirubin.total [Mass/volume] in Serum or Plasma0.3-1.0Flower HospitalCT lumbar spine wo conon 40-91-9790BW lumbar spine wo [facility] [address] [place] [address] CT Scan Report Signed Patient: Kelsey Graves MR#: [id number] : 1980 Acct:[id number] Age/Sex: 43 / F ADM Date: 05/25/24 Loc: ER Room: Type: [facility] ER Attending Dr: Copies to: Lolis Ludwig DO Ordering Provider: Lolis Ludwig DO Date of Service: 05/25/24 CT/CT lumbar spine wo con: Fall last week, back pain CT LUMBAR SPINE WITHOUT CONTRAST TECHNIQUE: Axial acquisition of the lumbar spine obtained with the sagittal and coronal reconstructed imaging.The CT exam was performed using one or more the following dose reduction techniques: Automated exposure control, adjustment of the MA and/or Kv according to patient size, or use of the iterative reconstruction technique. HISTORY: Fell last week COMPARISON: plain film imaging 05/06/2023 FINDINGS: The last fully segmented vertebral pair is operationally defined as L5/S1. POST SURGERY CHANGES: None BONY ALIGNMENT: Scoliosis. SPINAL CANAL:Patent bony central canal LUMBAR FRACTURE: None BONY LESIONS: None KIDNEYS: No hydronephrosis is identified. AORTA: No aortic aneurysm is seen. Lower thoracic level: Unremarkable Multilevel mild disc space narrowing and degenerative endplate changes. Multilevel facet degeneration. Assessment of disc herniation limited with CT examination. No obvious disc herniation seen with CT exam. CT/CT lumbar spine wo con IMPRESSION:No acute displaced lumbar spine fracture. Multilevel degeneration and scoliosis. Impression dictated by: Pardeep Montoya M.D.05/25/2024 11:05 PM Dictation Location: RADIO-PC-20 Transcribed By: [facility] 05/25/242304 Dictated By: Pardeep Montoya DO 05/25/242302 Signed By: 05/25/242304Diana [facility] Physician GroupCalcium [Mass/volume] in Serum or PlasmaOrdered By: PROVIDER TEMP on 42-97-7947Vtuxsjx [Mass/Vol]Calcium [Mass/volume] in Serum or Plasma8.6-10.3FMercy HospitalCarbon dioxide, total [Moles/volume] in Serum or PlasmaOrdered By: PROVIDER TEMP on 22-95-3938XE3 [Moles/Vol]Carbon dioxide, total [Moles/volume] in Serum or Plasma High21.0-31.0Flower HospitalChloride [Moles/volume] in Serum or PlasmaOrdered By: PROVIDER TEMP on 79-60-1598Hqzgvuwx [Moles/Vol]Chloride [Moles/volume] in Serum or Htnhsq28-047LsxxrseqzFlower HospitalColor Auto (U)Ordered By: Lolis Ludwig on 71-46-1820Dsrvz (U)Color of Urine by Auto YellowFlower HospitalComplete Blood Count Auto Diffon 53-60-9107Uvqroxusm (Bld) [#/Vol]0.0 10*3/uLNormal0.0-0.2The [facility] Physician GroupComment on above:Result Comment: PERFORMED BY: [place] [address] PATHOLOGIST HEDDLE MACHINE OPERATOR ANABELLE SCHAFER M.D.Performed By: #### VALP #### [facility] [address] [place] [address] USABasophils/100 WBC (Bld)0.5 %Normal.The [facility] Physician GroupComment on above:Performed By: #### VALP #### [facility] [address] [place] [address] USAEosinophils (Bld) [#/Vol]0.1 10*3/uLNormal0.0-0.45The [facility] Physician GroupComment on above:Performed By: #### VALP #### [address] [address] USAEosinophils/100 WBC (Bld)1.3 %Normal.The [facility] Physician GroupComment on above:Performed By: #### VALP #### [address] [address] USAErythrocyte distribution width (RBC) [Ratio]13.6 %Normal 11.9-15.3The [facility] Physician GroupComment on above:Performed By: #### VALP #### [place] [address] USAHematocrit (Bld) [Volume fraction]34.6 %Uttvdf58.0-46.4The [facility] Physician GroupComment on above:Performed By: #### VALP #### [place] [address] USAHemoglobin (Bld) [Mass/Vol]11.7 g/dLLow11.8-15.4The [facility] Physician GroupComment on above:Performed By: #### VALP #### [address] [address] USALymphocytes (Bld) [#/Vol]1.6 10*3/uLNormal1.00-4.8The [facility] Physician GroupComment on above:Performed By: #### VALP #### [place] [id number] USALymphocytes/100 WBC (Bld)17.7 %Normal.The [facility] Physician GroupComment on above:Performed By: #### VALP #### [address] [address] USAMCH (RBC) [Entitic mass]31.7 agPwscfa00.7-34.3The [facility] Physician GroupComment on above:Performed By: #### VALP #### [address] [address] USAMCV (RBC) [Entitic vol]93.5 vSYbgqek83-264Uii [facility] Physician GroupComment on above:Performed By: #### VALP #### [facility] [address] [place] [id number] USAMean Corpuscular HGB Conc33.8 g/lTRzbblr28.0-35.0The [facility] Physician GroupComment on above:Performed By: #### VALP #### [place] [address] USAMonocytes (Bld) [#/Vol]0.7 10*3/uLNormal0.0-0.8The [facility] Physician GroupComment on above:Performed By: #### VALP #### [place] [address] USAMonocytes/100 WBC (Bld)22.53 %High0.00-20.00The [facility] Physician GroupComment on above:Result Comment: For adults in ED, MDW > 20.0 may be associated with a higher risk of sepsis during the first 12 hrs of hospital admissionPerformed By: #### VALP #### [place] [address] USAMonocytes/100 WBC (Bld)7.1 %Normal.The [facility] Physician GroupComment on above:Performed By: #### VALP #### [place] [address] USANeutrophils (Bld) [#/Vol]6.8 10*3/uLNormal1.8-7.7The [facility] Physician GroupComment on above:Performed By: #### VALP #### [place] [address] USANeutrophils/100 WBC (Bld)73.4 %Normal.The [facility] Physician GroupComment on above:Performed By: #### VALP #### [place] [address] USANRBC%0.0 /100{WBC}Normal0-0.5The [facility]ician Group Comment on above:Performed By: #### VALP #### [place] [address] USAPlatelet mean volume (Bld) [Entitic vol]8.4 fLNormal 6.3-10.7The [facility] Physician GroupComment on above:Performed By: #### VALP #### [place] [address] USAPlatelets (Bld) [#/Vol]257 10*3/gMUkwcym947-781Azm [facility] Physician GroupComment on above:Performed By: #### VALP #### [place] [address] USARBC (Bld) [#/Vol]3.70 10*6/uLNormal3.60-5.00The [facility] Physician GroupComment on above:Performed By: #### VALP #### [place] [address] USAWBC (Bld) [#/Vol]9.3 10*3/uLNormal3.8-11.6The [facility] Physician GroupComment on above:Performed By: #### VALP #### [place] [address] USAComprehensive Metabolic Panelon 75-03-7788Ehdbbcb [Mass/Vol]4.1 g/dLNormal3.5-5.7The [facility] Physician GroupComment on above: Performed By: #### VALP #### [place] [address] USAAlbumin/Globulin [Mass ratio]1.1 {ratio}NormalThe [facility] Physician GroupComment on above:Performed By: #### VALP #### [place] [address] USAALP [Catalytic activity/Vol]72 U/WKczgmw89-646Vxh [facility] Physician GroupComment on above:Performed By: #### VALP #### [place] [address] USAALT [Catalytic activity/Vol]16 U/LNormal7-52The [facility] Physician GroupComment on above:Performed By: #### VALP #### [place] [id number] USAAnion gap [Moles/Vol]10.0 mmol/LNormal6.0-15.0The [facility] Physician GroupComment on above:Performed By: #### VALP #### [place] [address] USAAST [Catalytic activity/Vol]12 U/UOze66-18Xai [facility] Physician GroupComment on above:Performed By: #### VALP #### [place] [address] USABilirubin [Mass/Vol]0.3 mg/dLNormal0.3-1.0The [facility] Physician GroupComment on above:Performed By: #### VALP #### [place] [address] USACalcium [Mass/Vol]9.7 mg/dLNormal8.6-10.3The [facility] Physician GroupComment on above:Performed By: #### VALP #### [place] [address] USAChloride [Moles/Vol]102 mmol/MQnqhgp33-475Ccb [facility] Physician GroupComment on above:Performed By: #### VALP #### [place] [address] USACO2 [Moles/Vol]32.5 mmol/LHigh21.0-31.0The [facility] Physician GroupComment on above:Performed By: #### VALP #### [place] [address] USACreatinine [Mass/Vol]0.60 mg/dLNormal0.60-1.20The [facility] Physician GroupComment on above:Performed By: #### VALP #### [place] [address] USACreatinine Clr Calc Rgfnhesd235.12NormalThe [facility] Physician GroupComment on above:Result Comment: PERFORMED BY: [place] [address] PATHOLOGIST HEDDLE MACHINE OPERATOR ANABELLE SCHAFER M.D.Performed By: #### VALP #### [facility] [address] [place] [address] USAGFR/1.73 sq M.predicted MDRD (S/P/Bld) [Vol rate/Area] mL/min/{1.73_m2}NormalThe [facility] Physician GroupComment on above:Performed By: #### VALP #### [facility] [address] [place] [address] USAGlobulin (S) [Mass/Vol]3.6 g/dLNormalThe [facility] Physician GroupComment on above:Performed By: #### VALP #### [place] [address] USAGlucose [Mass/Vol]127 mg/zVDyhs97-404Ksn [facility] Physician GroupComment on above:Result Comment: Random Glucose Reference Range is dependent on time and content of last meal. Glucose of more than 200 mg/dL in a nonstressed, ambulatory subject supports the diagnosis of Diabetes Mellitus. ADA recommended reference rangePerformed By: #### VALP #### [place] [address] USAPotassium [Moles/Vol]4.5 mmol/LNormal3.5-5.1The [facility] Physician GroupComment on above:Performed By: #### VALP #### [place] [address] USAProtein [Mass/Vol]7.7 g/dLNormal6.4-8.9The [facility] Physician GroupComment on above:Performed By: #### VALP #### [place] [address] USASodium [Moles/Vol]140 mmol/VLflqct429-595Jvh [facility] Physician GroupComment on above:Performed By: #### VALP #### [place] [address] USAUrea nitrogen [Mass/Vol]14 mg/dLNormal7-25The [facility] Physician GroupComment on above:Performed By: #### VALP #### [place] [address] USACreatinine [Mass/volume] in Serum or PlasmaOrdered By: PROVIDER TEMP on 86-09-6202Nzazjbqgay [Mass/Vol]Creatinine [Mass/volume] in Serum or Plasma0.60-1.20Flower HospitalCrystals [Presence] in Urine by AutomatedOrdered By: Lolis Ludwig on 59-05-6764Pskpvzek Auto Ql (U) Crystals [Presence] in Urine by AutomatedFlower Hospital Dipstick and Microscopicon 49-83-5134Jsgjfupkqr (U)ClearNormalClearNch [facility] System [facility] Physician GroupComment on above:Order Comment: Name Collection Type:: Clean- Voided MidstreamPerformed By: #### LEV #### [facility] , #### CBC, CMP #### [place] [address] USABacteria,UrineNone SeenNormalNone SeenNch Healthcare System - [facility] Physician GroupComment on above:Order Comment: Name Collection Type:: Clean- Voided MidstreamPerformed By: #### LEV #### [facility] , #### CBC, CMP #### [facility] [address] [place] [address] USABilirubin,UrineNegativeNormalNegativeNch [facility] Physician GroupComment on above:Order Comment: Name Collection Type:: Clean- Voided MidstreamPerformed By: #### LEV #### [facility] , #### CBC, CMP #### [facility] [address] [place] [address] USAColor (U)Light-YellowNormalYellowThe [facility] Physician GroupComment on above:Order Comment: Name Collection Type:: Clean-Voided MidstreamPerformed By: #### LEV #### [facility] , #### CBC, CMP #### [facility] [address] [place] [address] USAGlucose Ql (U)NormalNormalNormalThe [facility] Physician GroupComment on above:Order Comment: Name Collection Type:: Clean-Voided MidstreamPerformed By: #### LEV #### [facility] , #### CBC, CMP #### [place] [address] USAHyaline Casts,UrineNoneNormal0-8The [facility] Physician GroupComment on above:Order Comment: Name Collection Type:: Clean-Voided MidstreamPerformed By: #### LEV #### [facility] , #### CBC, CMP #### [place] [address] USAKetones Ql (U)NegativeNormalNegativeNch [facility] [place] Physician GroupComment on above:Order Comment: Name Collection Type:: Clean- Voided MidstreamPerformed By: #### LEV #### [facility] , #### CBC, CMP #### [place] [address] USALeukocyte esterase Test strip Ql (U)2+HighNegativeNch Healthcare System - [facility] [place] Physician GroupComment on above:Order Comment: Name Collection Type:: Clean-Voided MidstreamPerformed By: #### LEV #### [facility] , #### CBC, CMP #### [place] [address] USANitrite,UrineNegativeNormalNegativeNch [facility] [place] Physician GroupComment on above:Order Comment: Name Collection Type:: Clean-Voided MidstreamPerformed By: #### LEV #### [facility] , #### CBC, CMP #### [place] [address] USAOccult Blood,UrineNegativeNormalNegativeNch [facility] [place] Physician GroupComment on above:Order Comment: Name Collection Type:: Clean- Voided MidstreamPerformed By: #### LEV #### [facility] , #### CBC, CMP #### [place] [address] USAOthe Crystals,Urine1+NormalThe [facility] Physician Group Comment on above:Order Comment: Name Collection Type:: Clean-Voided Midstream Performed By: #### LEV #### [facility] , #### CBC, CMP #### [place] [address] USApH (U)7.0 [pH]Normal5.0-9.0The [facility] Comment on above:Order Comment: Name Collection Type:: Clean-Voided Midstream Performed By: #### LEV #### [facility] , #### CBC, CMP #### [place] [address] USAProtein,UrineNegativeNormalNegativeThe [facility] Physician GroupComment on above:Order Comment: Name Collection Type:: Clean-Voided MidstreamPerformed By: #### LEV #### [facility] , #### CBC, CMP #### [place] [address] USARBC,Tpbcn0-4Hapuwg3-9Gdn [facility] Physician GroupComment on above:Order Comment: Name Collection Type:: Clean-Voided MidstreamPerformed By: #### LEV #### [facility] , #### CBC, CMP #### [place] [address] USASpecificy Raymond,Urine1.828Xsacge3.001-1.030The [facility] Physician GroupComment on above:Order Comment: Name Collection Type:: Clean- Voided MidstreamPerformed By: #### LEV #### [facility] , #### CBC, CMP #### [place] [address] USASquamous Epithelial Cell,Igxwv0-7Yddwod0-5Sqe [facility] Physician GroupComment on above:Order Comment: Name Collection Type:: Clean- Voided MidstreamPerformed By: #### LEV #### [facility] , #### CBC, CMP #### [facility] [address] [place] [address] USAUrobilinogen,UrineNormalNormalNormalThe [facility] Physician GroupComment on above:Order Comment: Name Collection Type:: Clean- Voided MidstreamPerformed By: #### LEV #### [facility] , #### CBC, CMP #### [facility] [address] [place] [address] USAWBC,Cdrrs04-29Tkag0-6Neh [facility] Physician GroupComment on above:Order Comment: Name Collection Type:: Clean-Voided MidstreamPerformed By: #### LEV #### [facility] , #### CBC, CMP #### [facility] [address] [place] [address] USAEosinophils Auto (Bld) [#/Vol]Ordered By: PROVIDER TEMP on 74-24-5573Wptvclddhmy (Bld) [#/Vol]Automated eosinophil count0.0-0.45Flower HospitalEosinophils/100 WBC Auto (Bld)Ordered By: PROVIDER TEMP on 29-23-9146Wvaukilnemj/100 WBC (Bld)Automated eosinophil %.Flower HospitalEpithelial cells.squamous [#/area] in Urine sediment by Automated countOrdered By: Lolis Ludwig on 35-00-6316Flrknmcgnb cells.squamous Auto (Urine sed) [#/Area]Epithelial cells.squamous [#/area] in Urine sediment by Automated count0-2FMercy HospitalErythrocyte distribution width Auto (RBC) [Ratio]Ordered By: PROVIDER TEMP on 21-21-9974Itmrhgfmtks distribution width (RBC) [Ratio]Erythrocyte distribution width [Ratio] by Automated count11.9-15.3FMercy HospitalErythrocytes [#/area] in Urine sediment by Automated countOrdered By: Lolis Ludwig on 18-65-6055XZS Auto (Urine sed) [#/Area]Erythrocytes [#/area] in Urine sediment by Automated count0-4FMercy HospitalGlobulin Calc (S) [Mass/Vol]Ordered By: PROVIDER TEMP on 52-27-5588Kgyanenl (S) [Mass/Vol]Serum globulin measurement by calculation (mass/volume)Flower HospitalGlucose [Mass/volume] in Serum or PlasmaOrdered By: PROVIDER TEMP on 01-38-0830Gksbyjl [Mass/Vol] Glucose [Mass/volume] in Serum or NqahaoLyyv77-795NfxqopemzFlower HospitalComment on above:ADA recommended reference rangeRandom Glucose Reference Range is dependent on time and content of last meal. Glucose of more than 200 mg/dL in a nonstressed, ambulatory subject supports the diagnosisof Diabetes Mellitus.Glucose [Mass/volume] in Urine by Test stripOrdered By: Lolis Ludwig on 01-84-4132Vkkudcp Test strip (U) [Mass/Vol]Glucose [Mass/volume] in Urine by Test stripNormalFlower HospitalHCG ( test) [place].rapid Ql (U)Ordered By: Lolis Ludwig on 99-71-3433WLN ( test) Ql (U)Urine human chorionic gonadotropin (hCG) detection by immunoassayFlower HospitalHCG,Urineon 37-56-0568Ccsd HCG ( test) Ql (U)Negative NormalThe [facility] Physician GroupComment on above:Order Comment: Name Collection Type:: Clean-Voided MidstreamResult Comment: PERFORMED BY: [place] [address] PATHOLOGIST HEDDLE MACHINE OPERATOR ANABELLE SCHAFER M.D.Performed By: #### LEV #### [facility] , #### CBC, CMP #### [place] [address] USAHematocrit Auto (Bld) [Volume fraction]Ordered By: PROVIDER TEMP on 62-61-3954Utmdpkitgy (Bld) [Volume fraction]Hematocrit [Volume Fraction] of Blood by Automated count34.0-46.4FMercy Hospital Hemoglobin Test strip Ql (U)Ordered By: Lolis Ludwig on 64-09-8656Pliqtrvwig Ql (U)Hemoglobin [Presence] in Urine by Test stripNegativeFlower HospitalHemoglobin [Mass/volume] in BloodOrdered By: PROVIDER TEMP on 15-52-5729Ynzdzxzgbi (Bld) [Mass/Vol]Hemoglobin [Mass/volume] in BloodLow 11.8-15.4FMercy HospitalHyaline casts [#/area] in Urine sediment by Automated countOrdered By: Lolis Ludwig on 13-38-5604Abvixzm casts Auto (Urine sed) [#/Area]Hyaline casts [#/area] in Urine sediment by Automated count0-8Flower HospitalKetones Test strip Ql (U)Ordered By: Lolis Ludwig on 47-06-1876Wggovfl Ql (U)Ketones [Presence] in Urine by Test stripNegativeFlower HospitalLeukocyte esterase [Presence] in Urine by Test stripOrdered By: Lolis Ludwig on 98-45-3520Zxxenvaoi esterase Test strip Ql (U)Leukocyte esterase [Presence] in Urine by Test stripHigh NegativeFlower HospitalLeukocytes [#/area] in Urine sediment by Automated countOrdered By: Lolis Ludwig on 70-27-8457BAL Auto (Urine sed) [#/Area]Leukocytes [#/area] in Urine sediment by Automated countHigh0-4FMercy HospitalLeukocytes [#/volume] corrected for nucleated erythrocytes in Blood by Automated counOrdered By: PROVIDER TEMP on 05-25-2024 WBC corrected for nucl RBC Auto (Bld) [#/Vol]Leukocytes [#/volume] corrected for nucleated erythrocytes in Blood by Automated coun3.8-11.6FMercy HospitalLymphocytes Auto (Bld) [#/Vol]Ordered By: PROVIDER TEMP on 32-11-5290Ytmkwulymzr (Bld) [#/Vol]Lymphocytes [#/volume] in Blood by Automated count1.00-4.8Flower HospitalLymphocytes/100 WBC Auto (Bld) Ordered By: PROVIDER TEMP on 58-16-5356Lxatscdzsck/100 WBC (Bld)Lymphocytes/100 leukocytes in Blood by Automated count.Flower HospitalMCH Auto (RBC) [Entitic mass]Ordered By: PROVIDER TEMP on 30-07-0774UIW (RBC) [Entitic mass]MCH [Entitic mass] by Automated count24.7-34.3FMercy HospitalMCHC Auto (RBC) [Mass/Vol]Ordered By: PROVIDER TEMP on 51-68-1081BBYK (RBC) [Mass/Vol]MCHC [Mass/volume] by Automated count32.0-35.0Flower HospitalMCV Auto (RBC) [Entitic vol]Ordered By: PROVIDER TEMP on 32-02-4216LOH (RBC) [Entitic vol]MCV [Entitic volume] by Automated -677 Flower HospitalMonocyte distribution width [Entitic volume] in Blood by AutomatedOrdered By: PROVIDER TEMP on 51-71-1420Tfzxpqhy distribution width Auto (Bld) [Entitic vol]Monocyte distribution width [Entitic volume] in Blood by AutomatedHigh0.00-20.00Flower HospitalComment on above:For adults in ED, MDW > 20.0 may be associated with a higher risk of sepsis during the first 12 hrs of hospital admissionMonocytes Auto (Bld) [#/Vol] Ordered By: PROVIDER TEMP on 47-95-5316Gbvqfepfv (Bld) [#/Vol]Automated blood monocyte count0.0-0.8Flower HospitalMonocytes/100 WBC Auto (Bld)Ordered By: PROVIDER TEMP on 85-03-9910Jmuefvsrx/100 WBC (Bld)Automated monocyte %.Flower HospitalNeutrophils Auto (Bld) [#/Vol] Ordered By: PROVIDER TEMP on 23-23-6503Ksljxfhfuab (Bld) [#/Vol]Neutrophils [#/volume] in Blood by Automated count1.8-7.7FMercy Hospital Neutrophils/100 WBC Auto (Bld)Ordered By: PROVIDER TEMP on 05-25-2024 Neutrophils/100 WBC (Bld)Automated neutrophil %.Flower HospitalNitrite Test strip Ql (U)Ordered By: Lolis Ludwig on 34-00-5924Fuqyrdy Ql (U)Nitrite [Presence] in Urine by Test stripNegativeFlower HospitalNo Panel InformationOrdered By: PROVIDER TEMP on 05-25-2024 Estimated GFR (CKD-EPI)> 60.0 mL/MinFlower HospitalPharmacy Creatinine Clearance (Owkh234.12Flower HospitalNucleated erythrocytes [Presence] in Blood by Automated countOrdered By: PROVIDER TEMP on 81-85-2402Zyntmcuhi RBC Auto Ql (Bld)Nucleated erythrocytes [Presence] in Blood by Automated count0-0.5FMercy HospitalPlatelet mean volume Auto (Bld) [Entitic vol]Ordered By: PROVIDER TEMP on 41-22-4143Inngzihw mean volume (Bld) [Entitic vol]Platelet mean volume [Entitic volume] in Blood by Automated count6.3-10.7FMercy HospitalPlatelets Auto (Bld) [#/Vol]Ordered By: PROVIDER TEMP on 30-07-7605Tkxhbomws (Bld) [#/Vol]Platelets [#/volume] in Blood by Automated jrigh767-005YepwzjpzsFlower Hospital Potassium [Moles/volume] in Serum or PlasmaOrdered By: PROVIDER TEMP on 32-75-5678Qldepahma [Moles/Vol]Potassium [Moles/volume] in Serum or Plasma 3.5-5.1FMercy HospitalProtein Test strip (U) [Mass/Vol]Ordered By: Lolis Ludwig on 13-70-1251Tdfonok (U) [Mass/Vol]Protein [Mass/volume] in Urine by Test stripNegativeFlower HospitalProtein [Mass/volume] in Serum or PlasmaOrdered By: PROVIDER TEMP on 23-80-7822Kxhtxyf [Mass/Vol]Protein [Mass/volume] in Serum or Plasma6.4-8.9Flower HospitalRBC Auto (Bld) [#/Vol]Ordered By: PROVIDER TEMP on 46-71-1915ZKE (Bld) [#/Vol]Erythrocytes [#/volume] in Blood by Automated count3.60-5.00 [facility] Medical Centererum or plasma albumin/globulin mass ratio Ordered By: PROVIDER TEMP on 63-27-6708Uokrysn/Globulin [Mass ratio]Serum or plasma albumin/globulin mass ratioFisher-Titus Medical Centererum or plasma anion gap determinationOrdered By: PROVIDER TEMP on 68-86-5167Wuwjg gap [Moles/Vol]Serum or plasma anion gap determination6.0-15.0[facility] Medical Centerodium [Moles/volume] in Serum or PlasmaOrdered By: PROVIDER TEMP on 41-89-5903Trnucy [Moles/Vol]Sodium [Moles/volume] in Serum or Kdyraw810-546 [facility] Medical Centerpecific gravity Test strip (U) [Rel density] Ordered By: Lolis Ludwig on 26-16-0476Ncodyqkk gravity (U) [Rel density] Specific gravity of Urine by Test strip1.001-1.030Flower HospitalUrea nitrogen [Mass/volume] in Serum or PlasmaOrdered By: PROVIDER TEMP on 74-33-7697Keme nitrogen [Mass/Vol]Urea nitrogen [Mass/volume] in Serum or Plasma7-25Flower HospitalUrinalysis macro (dipstick) panel (U) on 57-01-5371Nhtyvuvrr, UA1+Negative - 4(70) +++ mg/dLNOMS HealthcareBlood, UA NegativeNegative - 50 Elder/mcLNOMS HealthcareClarity, UAClearNOMS Healthcare Color, UAYellowNOMS HealthcareGlucose, UANegativeNegative - 2000(110) ++++ mg/dL NOMS HealthcareInterpretation and review of laboratory resultsAbnormalNOMS HealthcareKetones, UANegativeNegative - 160(16) ++++ mg/dLNOMS Healthcare Leukocytes, UA2+Negative - 500+++ Fili/mcLNOMS HealthcareNitrite, UANegative Negative - PositiveNOMS HealthcarepH, UA65 - 9NOMS HealthcareProtein, UAPositive Negative - 2000(20) ++++ mg/dLNOMS HealthcareSpec Grav, UA1.0251 - 1.03NOMS HealthcareUrobilinogen, UA0.20.2 - 12 mg/dLNOMS HealthcareNOMS HealthcareUrine Cultureon 50-05-6189Hyyfhkue identified Cx Nom (U)15,000 colonies/ml mixed bacterial skin contaminants 2 Days PERFORMED BY: [facility] [address] [place] [address] PATHOLOGIST HEDDLE MACHINE OPERATOR ANABELLE SCHAFER M.D.NormalThe [facility] Physician GroupComment on above: Performed By: #### LEV #### [facility] , #### CBC, CMP #### [facility] [address] [place] [address] USAUrobilinogen Test strip (U) [Mass/Vol]Ordered By: Lolis Ludwig on 49-00-0247Uygcqqmrjxwg (U) [Mass/Vol]Urobilinogen [Mass/volume] in Urine by Test stripNoSamaritan HospitalWBC Auto (Bld) [#/Vol] Ordered By: KULWANT BANDA on 42-20-6362NRJ (Bld) [#/Vol]Leukocytes [#/volume] in Blood by Automated count3.8-11.6FMercy HospitalpH Test strip (U)Ordered By: Lolis Ludwig on 15-43-1970lA (U)pH of Urine by Test strip 5.0-9.0Flower HospitalUrinalysis macro (dipstick) panel (U)on 36-77-7659Fjlvzdtue, UANegativeNegative - 4(70) +++ mg/dLNOMS HealthcareBlood, UAPositiveNegative - 50 Elder/mcLNONM HealthcareClarity, UACloudyNOMS Healthcare Color, UAYellowNOMS HealthcareGlucose, UANegativeNegative - 2000(110) ++++ mg/dL NOMS HealthcareInterpretation and review of laboratory resultsAbnormalNONM HealthcareKetones, UANegativeNegative - 160(16) ++++ mg/dLNONM Healthcare Leukocytes, UAManyNegative - 500+++ Fili/mcLNONM HealthcareNitrite, UANegative Negative - PositiveNOMS HealthcarepH, UA5.55 - 9NOMS HealthcareProtein, UA NegativeNegative - 2000(20) ++++ mg/dLNONM HealthcareSpec Grav, UA1.031 - 1.03 NOMS HealthcareUrobilinogen, UA0.20.2 - 12 mg/dLNONM HealthcareNOMS Healthcare Alanine aminotransferase [Enzymatic activity/volume] in Serum or PlasmaOrdered By: Zee Choudhury on 40-84-8907UHE [Catalytic activity/Vol]Alanine aminotransferase [Enzymatic activity/volume] in Serum or Plasma7-52Flower HospitalAlbumin [Mass/volume] in Serum or Plasma by Bromocresol green (BCG) dye binding methoOrdered By: Zee Choudhury 19-91-6239Vvifvll BCG dye [Mass/Vol]Albumin [Mass/volume] in Serum or Plasma by Bromocresol green (BCG) dye binding metho3.5-5.7FMercy HospitalAlkaline phosphatase [Enzymatic activity/volume] in Serum or PlasmaOrdered By: Zeeleah Choudhury 40-82-6497TTH [Catalytic activity/Vol]Alkaline phosphatase [Enzymatic activity/volume] in Serum or Onzqxw20-825WtzmydsbzFlower Hospital Aspartate aminotransferase [Enzymatic activity/volume] in Serum or PlasmaOrdered By: Zeeleah Choudhury 40-10-6377GJJ [Catalytic activity/Vol]Aspartate aminotransferase [Enzymatic activity/volume] in Serum or Nkwzdt72-78FqkxnzvvhFlower HospitalBasophils Auto (Bld) [#/Vol]Ordered By: Zeeleah Choudhury 65-65-5059Ardrflagm (Bld) [#/Vol]Automated basophil count0.0-0.2FMercy HospitalBasophils/100 WBC Auto (Bld)Ordered By: Zeeleah Choudhury 96-87-5178Yderrlwdm/100 WBC (Bld)Automated basophil %.Flower HospitalBilirubin.total [Mass/volume] in Serum or PlasmaOrdered By: Zeeleah Choudhury 04-55-6099Npsphxibe [Mass/Vol]Bilirubin.total [Mass/volume] in Serum or Plasma0.3-1.0Flower HospitalCalcium [Mass/volume] in Serum or PlasmaOrdered By: Zee Choudhury 17-29-3384Xxpdfvb [Mass/Vol]Calcium [Mass/volume] in Serum or Plasma8.6-10.3FMercy HospitalCarbon dioxide, total [Moles/volume] in Serum or PlasmaOrdered By: Zeeleah Choudhury 87-21-7353EM2 [Moles/Vol]Carbon dioxide, total [Moles/volume] in Serum or Plasma High21.0-31.0Flower HospitalChloride [Moles/volume] in Serum or PlasmaOrdered By: Zee Choudhury 76-02-3019Pkwiqnsu [Moles/Vol]Chloride [Moles/volume] in Serum or Kixbhj13-719NsztmdyhdFlower HospitalComplete Blood Count Auto Diffon 62-80-8419Iurzgongo (Bld) [#/Vol]0.1 10*3/uLNormal 0.0-0.2The [facility] Physician GroupComment on above:Result Comment: PERFORMED BY: [place] [address] PATHOLOGIST HEDDLE MACHINE OPERATOR ANABELLE SCHAFER M.D.Performed By: #### LEV #### [facility] , #### CBC, CMP #### [facility] [address] [place] [address] USABasophils/100 WBC (Bld)1.4 %Normal.The [facility] Physician GroupComment on above:Performed By: #### LEV #### [facility] , #### CBC, CMP #### [place] [address] USAEosinophils (Bld) [#/Vol]0.1 10*3/uLNormal0.0-0.45The [facility] Physician GroupComment on above:Performed By: #### LEV #### [facility] , #### CBC, CMP #### [facility] [address] [place] [address] USAEosinophils/100 WBC (Bld)1.3 %Normal.The [facility] Physician GroupComment on above:Performed By: #### LEV #### [facility] , #### CBC, CMP #### [facility] [address] [place] [address] USAErythrocyte distribution width (RBC) [Ratio]14.1 %Normal 11.9-15.3The [facility] Physician GroupComment on above:Performed By: #### LEV #### [facility] , #### CBC, CMP #### [facility] [address] [place] [address] USAHematocrit (Bld) [Volume fraction]37.5 %Twomwv67.0-46.4The [facility] Physician GroupComment on above:Performed By: #### LEV #### [facility] , #### CBC, CMP #### [place] [address] USAHemoglobin (Bld) [Mass/Vol]12.6 g/yUNsgyuh05.8-15.4The [facility] Physician GroupComment on above:Performed By: #### LEV #### [facility] , #### CBC, CMP #### [place] [address] USALymphocytes (Bld) [#/Vol]1.0 10*3/uLNormal1.00-4.8The [facility] Physician GroupComment on above:Performed By: #### LEV #### [facility] , #### CBC, CMP #### [place] [address] USALymphocytes/100 WBC (Bld)16.5 %Normal.The [facility] Physician GroupComment on above:Performed By: #### LEV #### [facility] , #### CBC, CMP #### [place] [address] USAMCH (RBC) [Entitic mass]31.4 psFqbhof56.7-34.3The [facility] Physician GroupComment on above:Performed By: #### LEV #### [facility] , #### CBC, CMP #### [facility] [address] [place] [address] USAMCV (RBC) [Entitic vol]93.1 hUIldspa43-281Cgp [facility] Physician GroupComment on above:Performed By: #### LEV #### [facility] , #### CBC, CMP #### [place] [address] USAMean Corpuscular HGB Conc33.7 g/yQExqdwo78.0-35.0The [facility] Physician GroupComment on above:Performed By: #### LEV #### [facility] , #### CBC, CMP #### [place] [address] USAMonocytes (Bld) [#/Vol]0.4 10*3/uLNormal0.0-0.8The [facility] Physician GroupComment on above:Performed By: #### LEV #### [facility] , #### CBC, CMP #### [place] [address] USAMonocytes/100 WBC (Bld)18.80 %Normal0.00-20.00The [facility] Physician GroupComment on above:Performed By: #### LEV #### [facility] , #### CBC, CMP #### [place] [address] USAMonocytes/100 WBC (Bld)6.8 %Normal.The [facility] Physician GroupComment on above:Performed By: #### LEV #### [facility] , #### CBC, CMP #### [place] [address] USANeutrophils (Bld) [#/Vol]4.4 10*3/uLNormal1.8-7.7The [facility] Physician GroupComment on above:Performed By: #### LEV #### [facility] , #### CBC, CMP #### [facility] [address] [place] [address] USANeutrophils/100 WBC (Bld)74.0 %Normal.The [facility] Physician GroupComment on above:Performed By: #### LEV #### [facility] , #### CBC, CMP #### [place] [address] USANRBC%0.1 /100{WBC}Normal0-0.5The [facility] Comment on above:Performed By: #### LEV #### [facility] , #### CBC, CMP #### [facility] [address] [place] [address] USAPlatelet mean volume (Bld) [Entitic vol]8.6 fLNormal 6.3-10.7The [facility] Physician GroupComment on above:Performed By: #### LEV #### [facility] , #### CBC, CMP #### [facility] [address] [place] [address] USAPlatelets (Bld) [#/Vol]250 10*3/mOVikxmw164-491Sel [facility] Physician GroupComment on above:Performed By: #### LEV #### [facility] , #### CBC, CMP #### [facility] [address] [place] [address] USARBC (Bld) [#/Vol]4.03 10*6/uLNormal3.60-5.00The [facility] Physician GroupComment on above:Performed By: #### LEV #### [facility] , #### CBC, CMP #### [facility] [address] [place] [address] USAWBC (Bld) [#/Vol]6.0 10*3/uLNormal3.8-11.6The [facility] Physician GroupComment on above:Performed By: #### LEV #### [facility] , #### CBC, CMP #### [facility] [address] [place] [address] USAComprehensive Metabolic Panelon 97-87-5688Yeqifve [Mass/Vol]4.4 g/dLNormal3.5-5.7The [facility] Physician GroupComment on above: Performed By: #### LEV #### [facility] , #### CBC, CMP #### [facility] [address] [place] [address] USAAlbumin/Globulin [Mass ratio]1.2 {ratio}NormalThe [facility] Physician GroupComment on above:Performed By: #### LEV #### [facility] , #### CBC, CMP #### [facility] [address] [place] [address] USAALP [Catalytic activity/Vol]74 U/FGgxjjk85-154Ohb [facility] Physician GroupComment on above:Performed By: #### LEV #### [facility] , #### CBC, CMP #### [facility] [address] [place] [address] USAALT [Catalytic activity/Vol]15 U/LNormal7-52The [facility] Physician GroupComment on above:Performed By: #### LEV #### [facility] , #### CBC, CMP #### [facility] [address] [place] [address] USAAnion gap [Moles/Vol]9.1 mmol/LNormal6.0-15.0The [facility] Physician GroupComment on above:Performed By: #### LEV #### [facility] , #### CBC, CMP #### [facility] [address] [place] [address] USAAST [Catalytic activity/Vol]14 U/WPsgnbj79-78Spf [facility] Physician GroupComment on above:Performed By: #### LEV #### [facility] , #### CBC, CMP #### [facility] [facility] [address] [place] [address] USABilirubin [Mass/Vol]0.4 mg/dLNormal0.3-1.0The [facility] Physician GroupComment on above:Performed By: #### LEV #### [facility] , #### CBC, CMP #### [facility] [address] [place] [address] USACalcium [Mass/Vol]9.5 mg/dLNormal8.6-10.3The [facility] Physician GroupComment on above:Performed By: #### LEV #### [facility] , #### CBC, CMP #### [place] [address] USAChloride [Moles/Vol]102 mmol/XNnhabd36-685Jzu [facility] Physician GroupComment on above:Performed By: #### LEV #### [facility] , #### CBC, CMP #### [facility] [address] [place] [address] USACO2 [Moles/Vol]32.2 mmol/LHigh21.0-31.0The [facility] Physician GroupComment on above:Performed By: #### LEV #### [facility] , #### CBC, CMP #### [place] [address] USACreatinine [Mass/Vol]0.75 mg/dLNormal0.60-1.20The [facility] Physician GroupComment on above:Performed By: #### LEV #### [facility] , #### CBC, CMP #### [place] [address] USACreatinine Clr Calc Ymornint80.95NormalThBear Lake Memorial Hospital Physician GroupComment on above:Result Comment: PERFORMED BY: [place] [address] PATHOLOGIST HEDDLE MACHINE OPERATOR ANABELLE SCHAFER M.D.Performed By: #### LEV #### [facility] , #### CBC, CMP #### [facility] [address] [place] [address] USAGFR/1.73 sq M.predicted MDRD (S/P/Bld) [Vol rate/Area] mL/min/{1.73_m2}NormalThe [facility] Physician GroupComment on above:Performed By: #### LEV #### [facility] , #### CBC, CMP #### [place] [address] USAGlobulin (S) [Mass/Vol]3.8 g/dLNormalThe [facility] Physician GroupComment on above:Performed By: #### LEV #### [facility] , #### CBC, CMP #### [place] [address] USAGlucose [Mass/Vol]101 mg/oSVctb70-755Psv [facility] Physician GroupComment on above:Result Comment: Random Glucose Reference Range is dependent on time and content of last meal. Glucose of more than 200 mg/dL in a nonstressed, ambulatory subject supports the diagnosis of Diabetes Mellitus. ADA recommended reference rangePerformed By: #### LEV #### [facility] , #### CBC, CMP #### [place] [address] USAPotassium [Moles/Vol]4.3 mmol/LNormal3.5-5.1The [facility] Physician GroupComment on above:Performed By: #### LEV #### [facility] , #### CBC, CMP #### [facility] [address] [place] [address] USAProtein [Mass/Vol]8.2 g/dLNormal6.4-8.9The [facility] Physician GroupComment on above:Performed By: #### LEV #### [facility] , #### CBC, CMP #### [facility] [address] [place] [address] USASodium [Moles/Vol]139 mmol/ZJnazwz959-880Gmv [facility] Physician GroupComment on above:Performed By: #### LEV #### [facility] , #### CBC, CMP #### [facility] [address] [place] [address] USAUrea nitrogen [Mass/Vol]13 mg/dLNormal7-25The [facility] Physician GroupComment on above:Performed By: #### LEV #### [facility] , #### CBC, CMP #### [facility] [address] [id number] USACreatinine [Mass/volume] in Serum or PlasmaOrdered By: Zee Choudhury on 94-47-6318Gqsvusycky [Mass/Vol]Creatinine [Mass/volume] in Serum or Plasma0.60-1.20[facility] HospitalECG 12 lead ECGon 04-24-2024 ECG 12 lead [facility]MER[facility] [place] [address] [id number] Electrocardiograph Report Signed Patient: Kelsey Graves MR#: [id number] : 1980 Acct:[id number] Age/Sex: 43 / F ADM Date: 04/24/24 Loc: ER Room: Type: [facility] ER Attending Dr: Ordering Provider: Zee Choudhury Do Date of Service: 04/24/2403/20/1010 ECG/ECG 12 lead ECG: Seizure Copies to: Test Reason : Blood Pressure : 122/56 mmHG Vent. Rate : 66 BPM Atrial Rate : 66 BPM P-R Int : 182 ms QRS Dur : 106 ms QT Int : 446 ms P-R-T Axes : 35 -42 33 degrees QTcB Int : 467 ms Normal sinus rhythm Left axis deviation Incomplete right bundle branch block Nonspecific T wave abnormality Abnormal ECG When compared with ECG of 19-Apr-2024 08:18, No significant change was found Confirmed by ALEXIS MORELOS DO ([id number]) on 04/24/2024 3:44:24 PM Referred By: Electronically Signed By: ALEXIS MORELOS DO Transcribed By: MUS Signed By Alexis Morelos DO 04/24 [facility] Physician GroupEosinophils Auto (Bld) [#/Vol]Ordered By: Zee Choudhury on 38-30-4825Odvszubuhos (Bld) [#/Vol]Automated eosinophil count0.0-0.45[facility] HospitalEosinophils/100 WBC Auto (Bld) Ordered By: Zee Choudhury on 92-66-8726Itpmewgqkfk/100 WBC (Bld)Automated eosinophil %.Flower HospitalErythrocyte distribution width Auto (RBC) [Ratio]Ordered By: Zee Choudhury on 83-46-6691Zsvhvjicova distribution width (RBC) [Ratio]Erythrocyte distribution width [Ratio] by Automated count 11.9-15.3FMercy HospitalGlobulin Calc (S) [Mass/Vol]Ordered By: Zee Choudhury on 25-89-0087Uhymwphj (S) [Mass/Vol]Serum globulin measurement by calculation (mass/volume)Flower HospitalGlucose Glucometer (BldC) [Mass/Vol]Ordered By: Zee Choudhury on 58-57-6103Fqslhmy [Mass/Vol] Capillary blood glucose measurement by glucometer (mass/volume)Flower HospitalComment on above:Random Glucose Reference Range is dependent on time and content of last meal. Glucose of more than 200 mg/dL in a nonstressed, ambulatory subject supports the diagnosis of Diabetes Mellitus. Glucose Poct Glucometerson 08-04-2935Dsxsidy [Mass/Vol]105 mg/dLNormMemorial Regional Hospital South Physician GroupComment on above:Result Comment: Random Glucose Reference Range is dependent on time and content of last meal. Glucose of more than 200 mg/dL in a nonstressed, ambulatory subject supports the diagnosis of Diabetes Mellitus. PERFORMED BY: [address] [place] [address] PATHOLOGIST HEDDLE MACHINE OPERATOR ANABELLE SCHAFER M.D.Performed By: #### GLULS #### Point of Care testing ,Glucose [Mass/volume] in Serum or PlasmaOrdered By: Zee Choudhury on 04-24-2024 Glucose [Mass/Vol]Glucose [Mass/volume] in Serum or UzokekSkqp85-582RptqwwimqFlower HospitalComment on above:ADA recommended reference rangeRandom Glucose Reference Range is dependent on time and content of last meal. Glucose of more than 200 mg/dL in a nonstressed, ambulatory subject supports the diagnosisof Diabetes Mellitus.Hematocrit Auto (Bld) [Volume fraction]Ordered By: Zee Choudhury on 67-68-2403Tlslpumbpg (Bld) [Volume fraction]Hematocrit [Volume Fraction] of Blood by Automated count34.0-46.4FMercy Hospital Hemoglobin [Mass/volume] in BloodOrdered By: Zee Choudhury on 41-81-8441Dobjbikrxf (Bld) [Mass/Vol]Hemoglobin [Mass/volume] in Blood11.8-15.4FMercy HospitalLeukocytes [#/volume] corrected for nucleated erythrocytes in Blood by Automated counOrdered By: Zee Choudhury on 52-88-6423EPC corrected for nucl RBC Auto (Bld) [#/Vol]Leukocytes [#/volume] corrected for nucleated erythrocytes in Blood by Automated coun3.8-11.6FMercy Hospital Levetiracetam (Keppra)on 16-08-4476eofBRLPMerxeo [Mass/Vol]15.6 ug/mLNormal 10.0-40.0The [facility] Physician GroupComment on above:Result Comment: Performed at: [facility] [id number] Software Support Engineer: Zeke Cowan MD, Phone: [phone] PERFORMED BY: [place] [address] PATHOLOGIST HEDDLE MACHINE OPERATOR ANABELLE SCHAFER M.D.Performed By: #### LEV #### [facility] , #### CBC, CMP #### [place] [address] USALevetiracetam levelOrdered By: Zee Choudhury on 04-24-2024 Levetiracetam (Keppra) Level15.6 ug/mL10.0-40.0[facility] Comment on above:Performed at: [facility] [id number] Director: Zeke Cowan MD, Phone: [phone] Lymphocytes Auto (Bld) [#/Vol]Ordered By: Zee Choudhury on 45-94-8375Urywqjuxhtq (Bld) [#/Vol]Lymphocytes [#/volume] in Blood by Automated count1.00-4.8Flower HospitalLymphocytes/100 WBC Auto (Bld)Ordered By: Zee Choudhury on 06-88-2007Wjapuzziweb/100 WBC (Bld)Lymphocytes/100 leukocytes in Blood by Automated count.Flower HospitalMCH Auto (RBC) [Entitic mass] Ordered By: Zee Choudhury on 91-90-7636JTO (RBC) [Entitic mass]MCH [Entitic mass] by Automated count24.7-34.3FMercy HospitalMCHC Auto (RBC) [Mass/Vol]Ordered By: Zee Choudhury on 54-03-1579RGNR (RBC) [Mass/Vol]MCHC [Mass/volume] by Automated count32.0-35.0Flower HospitalMCV Auto (RBC) [Entitic vol]Ordered By: Zee Choudhury on 85-91-9889XBZ (RBC) [Entitic vol]MCV [Entitic volume] by Automated yfbcp14-452PolvnnmqcFlower HospitalMonocyte distribution width [Entitic volume] in Blood by AutomatedOrdered By: Zee Choudhury on 88-95-6014Kyeqdhjg distribution width Auto (Bld) [Entitic vol]Monocyte distribution width [Entitic volume] in Blood by Automated0.00-20.00 Flower HospitalMonocytes Auto (Bld) [#/Vol]Ordered By: Zee Choudhury on 90-78-7646Jwckpsxjs (Bld) [#/Vol]Automated blood monocyte count0.0-0.8 F[facility] HospitalMonocytes/100 WBC Auto (Bld)Ordered By: Zee Choudhury on 56-31-8852Fjstmlwqu/100 WBC (Bld)Automated monocyte %.[facility]lower HospitalNeutrophils Auto (Bld) [#/Vol]Ordered By: Zee Choudhury on 64-28-7092Xepzvwqomqj (Bld) [#/Vol]Neutrophils [#/volume] in Blood by Automated count1.8-7.7FMercy HospitalNeutrophils/100 WBC Auto (Bld) Ordered By: Zee Choudhury on 46-43-7596Rlsoqrwabte/100 WBC (Bld)Automated neutrophil %.Flower HospitalNo Panel InformationOrdered By: Zee Choudhury on 01-94-2454Nsfcjyciu GFR (CKD-EPI)> 60.0 mL/MinFlower HospitalPharmacy Creatinine Clearance (Chem88.95Flower HospitalNucleated erythrocytes [Presence] in Blood by Automated countOrdered By: Zee Choudhury on 59-09-7990Cmzqnroki RBC Auto Ql (Bld)Nucleated erythrocytes [Presence] in Blood by Automated count0-0.5FMercy Hospital Platelet mean volume Auto (Bld) [Entitic vol]Ordered By: Zeeleah Choudhury on 62-94-6052Wfyryfef mean volume (Bld) [Entitic vol]Platelet mean volume [Entitic volume] in Blood by Automated count6.3-10.7FMercy Hospital Platelets Auto (Bld) [#/Vol]Ordered By: Zee Choudhury on 87-51-8620Hpubggopu (Bld) [#/Vol]Platelets [#/volume] in Blood by Automated vwchu366-874TdpsheeaoFlower HospitalPotassium [Moles/volume] in Serum or PlasmaOrdered By: Zee Choudhury 55-08-0899Zltgthxnl [Moles/Vol]Potassium [Moles/volume] in Serum or Plasma3.5-5.1FMercy HospitalProtein [Mass/volume] in Serum or PlasmaOrdered By: Zeeleah Choudhury 11-68-7658Uindtcg [Mass/Vol]Protein [Mass/volume] in Serum or Plasma6.4-8.9Flower HospitalRBC Auto (Bld) [#/Vol]Ordered By: Zee Choudhury 38-97-4509HML (Bld) [#/Vol]Erythrocytes [#/volume] in Blood by Automated count3.60-5.00Fisher-Titus Medical Centererum or plasma albumin/globulin mass ratioOrdered By: Zee Choudhury 21-09-1404Tttqwis/Globulin [Mass ratio]Serum or plasma albumin/globulin mass ratioFisher-Titus Medical Centererum or plasma anion gap determination Ordered By: Zee Choudhury 65-91-3968Dqysi gap [Moles/Vol]Serum or plasma anion gap determination6.0-15.0[facility]-Titus Medical Centerodium [Moles/volume] in Serum or PlasmaOrdered By: Zee Choudhruy 28-86-8813Edrvye [Moles/Vol]Sodium [Moles/volume] in Serum or Zhtioq733-158OpooimcurFlower HospitalUrea nitrogen [Mass/volume] in Serum or PlasmaOrdered By: Zee Choudhury on 04-24-2024 Urea nitrogen [Mass/Vol]Urea nitrogen [Mass/volume] in Serum or Plasma7-25 Flower HospitalWBC Auto (Bld) [#/Vol]Ordered By: Zee Choudhury on 43-05-1229TAU (Bld) [#/Vol]Leukocytes [#/volume] in Blood by Automated count 3.8-11.6FMercy HospitalAlanine aminotransferase [Enzymatic activity/volume] in Serum or PlasmaOrdered By: Joseph Vaughn on 04-19-2024 ALT [Catalytic activity/Vol]Alanine aminotransferase [Enzymatic activity/volume] in Serum or Plasma7-52F[facility] HospitalAlbumin [Mass/volume] in Serum or Plasma by Bromocresol green (BCG) dye binding methoOrdered By: Joseph Vaughn on 07-09-7459Qkiyfjk BCG dye [Mass/Vol]Albumin [Mass/volume] in Serum or Plasma by Bromocresol green (BCG) dye binding metho3.5-5.7FMercy HospitalAlkaline phosphatase [Enzymatic activity/volume] in Serum or PlasmaOrdered By: Joseph Vaughn on 57-44-8857KPE [Catalytic activity/Vol] Alkaline phosphatase [Enzymatic activity/volume] in Serum or Cbjgkm46-024 Flower HospitalAppearance of UrineOrdered By: Joseph Vaughn on 62-30-4005Tbnwwydnyb (U)Urine appearanceCleFisher-Titus Medical CenterAspartate aminotransferase [Enzymatic activity/volume] in Serum or PlasmaOrdered By: Joseph Vaughn on 57-86-2571AZA [Catalytic activity/Vol] Aspartate aminotransferase [Enzymatic activity/volume] in Serum or PlasmaLow 13-39Flower HospitalBacteria [Presence] in Urine by Automated Ordered By: Joseph Vaughn on 59-17-3054Yyyoncnk Auto Ql (U)Bacteria [Presence] in Urine by AutomatedNone SeenFlower Hospital Basophils Auto (Bld) [#/Vol]Ordered By: Joseph Vaughn on 24-29-3590Xrgivnese (Bld) [#/Vol]Automated basophil count0.0-0.2FMercy Hospital Basophils/100 WBC Auto (Bld)Ordered By: Joseph Vaughn on 04-19-2024 Basophils/100 WBC (Bld)Automated basophil %.[facility] Bilirubin Test strip Ql (U)Ordered By: Joseph Vaughn on 63-78-6071Ipclpqoah Ql (U)Bilirubin.total [Presence] in Urine by Test stripNegativeFlower HospitalBilirubin.total [Mass/volume] in Serum or PlasmaOrdered By: Joseph Vaughn on 34-66-2806Gveikqoos [Mass/Vol]Bilirubin.total [Mass/volume] in Serum or Plasma0.3-1.0Flower HospitalCalcium [Mass/volume] in Serum or PlasmaOrdered By: Joseph Vaughn on 04-19-2024 Calcium [Mass/Vol]Calcium [Mass/volume] in Serum or Plasma8.6-10.3FMercy HospitalCarbon dioxide, total [Moles/volume] in Serum or Plasma Ordered By: Joseph Vaughn on 54-26-4488EC4 [Moles/Vol]Carbon dioxide, total [Moles/volume] in Serum or PuntchDtmj20.0-31.0[facility] Chloride [Moles/volume] in Serum or PlasmaOrdered By: Joseph Vaughn on 13-45-8849Lzbkjplx [Moles/Vol]Chloride [Moles/volume] in Serum or Vszyqo01-545 Flower HospitalColor Auto (U)Ordered By: Joseph Vaughn on 00-89-6763Loskr (U)Color of Urine by AutoYellowFlower Hospital Complete Blood Count Auto Diffon 33-93-2667Ugsylymmt (Bld) [#/Vol]0.1 10*3/uL Normal0.0-0.2The [facility] Physician GroupComment on above:Result Comment: PERFORMED BY: [facility] [address] [place] [address] PATHOLOGIST HEDDLE MACHINE OPERATOR ANABELLE SCHAFER M.D.Performed By: #### GLULS #### Point of Care testing ,Basophils/100 WBC (Bld)1.2 %Normal.The [facility] Physician GroupComment on above:Performed By: #### GLULS #### Point of Care testing ,Eosinophils (Bld) [#/Vol]0.1 10*3/uLNormal0.0-0.45The [facility] Comment on above:Performed By: #### GLULS #### Point of Care testing ,Eosinophils/100 WBC (Bld)0.8 %Normal.The [facility] Physician GroupComment on above:Performed By: #### GLULS #### Point of Care testing ,Erythrocyte distribution width (RBC) [Ratio]14.0 %Rdveoh34.9-15.3The [facility] Physician GroupComment on above:Performed By: #### GLULS #### Point of Care testing ,Hematocrit (Bld) [Volume fraction]34.5 %Wjtkyb39.0-46.4The [facility] Physician GroupComment on above:Performed By: #### GLULS #### Point of Care testing ,Hemoglobin (Bld) [Mass/Vol]11.8 g/aANgewkx09.8-15.4The [facility] Physician GroupComment on above:Performed By: #### GLULS #### Point of Care testing ,Lymphocytes (Bld) [#/Vol]1.1 10*3/uLNormal1.00-4.8The [facility] Comment on above:Performed By: #### GLULS #### Point of Care testing ,Lymphocytes/100 WBC (Bld)14.9 %Normal.The [facility] Physician GroupComment on above:Performed By: #### GLULS #### Point of Care testing ,MCH (RBC) [Entitic mass]31.9 acWnielq05.7-34.3The [facility] Comment on above:Performed By: #### GLULS #### Point of Care testing ,MCV (RBC) [Entitic vol]93.2 tMTnfrmw06-153Wwl [facility] Physician GroupComment on above:Performed By: #### GLULS #### Point of Care testing ,Mean Corpuscular HGB Conc34.3 g/zPXldmfg08.0-35.0The [facility] Comment on above:Performed By: #### GLULS #### Point of Care testing ,Monocytes (Bld) [#/Vol]0.5 10*3/uLNormal0.0-0.8The [facility] Comment on above:Performed By: #### GLULS #### Point of Care testing ,Monocytes/100 WBC (Bld)19.69 %Normal0.00-20.00The [facility] Comment on above:Performed By: #### GLULS #### Point of Care testing ,Monocytes/100 WBC (Bld)7.2 %Normal.The [facility] Physician GroupComment on above:Performed By: #### GLULS #### Point of Care testing ,Neutrophils (Bld) [#/Vol]5.5 10*3/uLNormal1.8-7.7The [facility] Comment on above:Performed By: #### GLULS #### Point of Care testing ,Neutrophils/100 WBC (Bld)75.9 %Normal.The [facility] Physician GroupComment on above:Performed By: #### GLULS #### Point of Care testing ,NRBC%0.0 /100{WBC}Normal0-0.5The [facility] Physician GroupComment on above: Performed By: #### GLULS #### Point of Care testing ,Platelet mean volume (Bld) [Entitic vol]8.3 fLNormal6.3-10.7The [facility] Physician GroupComment on above:Performed By: #### GLULS #### Point of Care testing ,Platelets (Bld) [#/Vol]241 10*3/tUQmhzfs249-163Fmm [facility] Physician [facility] Comment on above:Performed By: #### GLULS #### Point of Care testing ,RBC (Bld) [#/Vol]3.70 10*6/uLNormal3.60-5.00The [facility] Comment on above:Performed By: #### GLULS #### Point of Care testing ,WBC (Bld) [#/Vol]7.2 10*3/uLNormal3.8-11.6The [facility] Physician GroupComment on above:Performed By: #### GLULS #### Point of Care testing ,Comprehensive Metabolic Panelon 32-05-7289Ulhrnhh [Mass/Vol]3.9 g/dLNormal 3.5-5.7The [facility] Physician GroupComment on above:Performed By: #### GLULS #### Point of Care testing ,Albumin/Globulin [Mass ratio]1.1 {ratio}NormalThe [facility] Comment on above:Performed By: #### GLULS #### Point of Care testing ,ALP [Catalytic activity/Vol]68 U/OChqjvp50-597Ujx [facility] Physician [facility] Comment on above:Performed By: #### GLULS #### Point of Care testing ,ALT [Catalytic activity/Vol]14 U/LNormal7-52The [facility] Physician [facility] Comment on above:Performed By: #### GLULS #### Point of Care testing ,Anion gap [Moles/Vol]6.8 mmol/LNormal6.0-15.0The [facility] Physician [facility] Comment on above:Performed By: #### GLULS #### Point of Care testing ,AST [Catalytic activity/Vol]12 U/ZCwz89-91Tjq [facility] Physician GroupComment on above:Performed By: #### GLULS #### Point of Care testing ,Bilirubin [Mass/Vol]0.4 mg/dLNormal0.3-1.0[facility] Physician GroupComment on above:Performed By: #### GLULS #### Point of Care testing ,Calcium [Mass/Vol]9.1 mg/dLNormal8.6-10.3The [facility] Physician GroupComment on above:Performed By: #### GLULS #### Point of Care testing ,Chloride [Moles/Vol]105 mmol/CEbmnny57-469Ibe [facility] Physician GroupComment on above:Performed By: #### GLULS #### Point of Care testing ,CO2 [Moles/Vol]31.3 mmol/LHigh21.0-31.0[facility] Physician GroupComment on above:Performed By: #### GLULS #### Point of Care testing ,Creatinine [Mass/Vol]0.70 mg/dLNormal0.60-1.20The [facility] Physician [facility] Comment on above:Performed By: #### GLULS #### Point of Care testing ,Creatinine Clr Calc Sztqoccv49.57NormalThBear Lake Memorial Hospital Physician GroupComment on above:Performed By: #### GLULS #### Point of Care testing ,GFR/1.73 sq M.predicted MDRD (S/P/Bld) [Vol rate/Area]mL/min/{1.73_m2}NormalThe [facility] Physician GroupComment on above:Performed By: #### GLULS #### Point of Care testing ,Globulin (S) [Mass/Vol]3.7 g/dLNormalThe [facility] Physician GroupComment on above:Performed By: #### GLULS #### Point of Care testing ,Glucose [Mass/Vol]137 mg/oTFgxd58-541Oad [facility] Physician GroupComment on above:Result Comment: Random Glucose Reference Range is dependent on time and content of last meal. Glucose of more than 200 mg/dL in a nonstressed, ambulatory subject supports the diagnosis of Diabetes Mellitus. ADA recommended reference rangePerformed By: #### GLULS #### Point of Care testing ,Potassium [Moles/Vol]4.1 mmol/LNormal3.5-5.1The [facility] Comment on above:Performed By: #### GLULS #### Point of Care testing ,Protein [Mass/Vol]7.6 g/dLNormal6.4-8.9The [facility] Physician GroupComment on above:Performed By: #### GLULS #### Point of Care testing ,Sodium [Moles/Vol]139 mmol/ZGwpwdh671-278Dqx [facility] Physician GroupComment on above:Performed By: #### GLULS #### Point of Care testing ,Urea nitrogen [Mass/Vol]17 mg/dLNormal7-25The [facility] Physician GroupComment on above:Performed By: #### GLULS #### Point of Care testing ,Creatinine [Mass/volume] in Serum or PlasmaOrdered By: Joseph Vaughn on 77-25-0434Gpvazuorwu [Mass/Vol]Creatinine [Mass/volume] in Serum or Plasma 0.60-1.20Flower HospitalDipstick and Microscopicon 04-19-2024 Appearance (U)ClearNormalClearThe [facility] Physician GroupComment on above: Order Comment: Name Collection Type:: Clean-Voided MidstreamPerformed By: #### VALP #### [facility] [address] [place] [address] USABacteria,UrineNone SeenNormalNone SeenNch [facility] System [facility] Physician GroupComment on above:Order Comment: Name Collection Type:: Clean- Voided MidstreamPerformed By: #### VALP #### [place] [address] USABilirubin,UrineNegativeNormalNegativeNch [facility] [place] Physician GroupComment on above:Order Comment: Name Collection Type:: Clean- Voided MidstreamPerformed By: #### VALP #### [place] [address] USAColor (U)Light-YellowNormalYellowNch Healthcare System [facility] [place] Physician GroupComment on above:Order Comment: Name Collection Type:: Clean-Voided MidstreamPerformed By: #### VALP #### [place] [address] USAGlucose Ql (U)NormalNormalNormalThBear Lake Memorial Hospital Physician GroupComment on above:Order Comment: Name Collection Type:: Clean-Voided MidstreamPerformed By: #### VALP #### [place] [address] USAHyaline Casts,UrineNoneNormal0-8The [facility] Physician GroupComment on above:Order Comment: Name Collection Type:: Clean-Voided MidstreamPerformed By: #### VALP #### [place] [address] USAKetones Ql (U)NegativeNormalNegativeNch [facility] Physician GroupComment on above:Order Comment: Name Collection Type:: Clean- Voided MidstreamPerformed By: #### VALP #### [place] [address] USALeukocyte esterase Test strip Ql (U)4+HighNegativeNch [facility] Physician GroupComment on above:Order Comment: Name Collection Type:: Clean-Voided MidstreamPerformed By: #### VALP #### [place] [address] USAMucus,UrineRareNormalThe [facility] Physician GroupComment on above:Order Comment: Name Collection Type:: Clean-Voided MidstreamResult Comment: PERFORMED BY: [place] [address] PATHOLOGIST HEDDLE MACHINE OPERATOR ANABELLE SCHAFER M.D.Performed By: #### VALP #### [place] [address] USANitrite,UrineNegativeNormalNegativeThe [facility] Physician GroupComment on above:Order Comment: Name Collection Type:: Clean-Voided MidstreamPerformed By: #### VALP #### [place] [address] USAOccult Blood,UrineNegativeNormalNegativeThe [facility] Physician GroupComment on above:Order Comment: Name Collection Type:: Clean- Voided MidstreamResult Comment: PERFORMED BY: [place] [address] PATHOLOGIST HEDDLE MACHINE OPERATOR ANABELLE SCHAFER M.D.Performed By: #### VALP #### [place] [address] USApH (U)5.5 [pH]Normal5.0-9.0The [facility] Comment on above:Order Comment: Name Collection Type:: Clean-Voided Midstream Performed By: #### VALP #### [place] [address] USAProtein,UrineNegativeNormalNegativeThe [facility] Physician GroupComment on above:Order Comment: Name Collection Type:: Clean-Voided MidstreamPerformed By: #### VALP #### [place] [address] USARBC,Wmoeu5-8Dgpjux4-0Dfh [facility] Physician GroupComment on above:Order Comment: Name Collection Type:: Clean-Voided MidstreamPerformed By: #### VALP #### [place] [address] USASpecificy Raymond,Urine1.249Vsblia7.001-1.030The [facility] Physician GroupComment on above:Order Comment: Name Collection Type:: Clean- Voided MidstreamPerformed By: #### VALP #### [facility] [address] [place] [address] USASquamous Epithelial Cell,Ymmst0-2Nbqg8-8Lid [facility] Physician GroupComment on above:Order Comment: Name Collection Type:: Clean- Voided MidstreamPerformed By: #### VALP #### [facility] [address] [place] [address] USAUrobilinogen,UrineNormalNormalNormalThe [facility] Physician GroupComment on above:Order Comment: Name Collection Type:: Clean- Voided MidstreamPerformed By: #### VALP #### [facility] [address] [place] [address] USAWBC,Korvg29-76Viaw6-2Frj [facility] Physician GroupComment on above:Order Comment: Name Collection Type:: Clean-Voided MidstreamPerformed By: #### VALP #### [facility] [address] [place], [place] [id number] USAECG 12 lead ECGon 58-00-4295KBK 12 lead [facility]MER[facility] [place] [address] [place] [address] Electrocardiograph Report Signed Patient: Kelsey Graves MR#: [id number] : 1980 Acct:[id number] Age/Sex: 43 / F ADM Date: 04/19/24 Loc: ER Room: Type: [facility] ER Attending Dr: Ordering Provider: Joseph Vaughn DO Date of Service: 04/19/24 ECG/ECG 12 lead ECG: Seizure Copies to: Test Reason : Blood Pressure : 141/59 mmHG Vent. Rate : 61 BPM Atrial Rate : 61 BPM P-R Int : 186 ms QRS Dur : 110 ms QT Int : 422 ms P-R-T Axes : 35 -54 50 degrees QTcB Int : 424 ms Normal sinus rhythm Incomplete right bundle branch block Confirmed by Joseph VAUGHN DO ([id number]) on 04/19/2024 12:19:56 PM Referred By: Electronically Signed By: Joseph VAUGHN DO Transcribed By: MUS Signed By Joseph Vaughn DO 0 04/19/[address] [place] [address] Physician GroupEosinophils Auto (Bld) [#/Vol] Ordered By: Joseph Vaughn on 86-38-6582Qtpvonaoszw (Bld) [#/Vol]Automated eosinophil count0.0-0.45Flower HospitalEosinophils/100 WBC Auto (Bld)Ordered By: Joseph Vaughn on 02-59-7419Qwvmvzbeqdy/100 WBC (Bld) Automated eosinophil %.Flower HospitalEpithelial cells.squamous [#/area] in Urine sediment by Automated countOrdered By: Joseph Vaughn on 90-13-2605Kdlsrcukni cells.squamous Auto (Urine sed) [#/Area]Epithelial cells.squamous [#/area] in Urine sediment by Automated count High0-2FMercy HospitalErythrocyte distribution width Auto (RBC) [Ratio]Ordered By: Joseph Vaughn on 05-01-1996Pzslwnsnmfz distribution width (RBC) [Ratio]Erythrocyte distribution width [Ratio] by Automated count 11.9-15.3FMercy HospitalErythrocytes [#/area] in Urine sediment by Automated countOrdered By: Joseph Vaughn on 34-02-6323HCW Auto (Urine sed) [#/Area]Erythrocytes [#/area] in Urine sediment by Automated count 0-4FMercy HospitalGlobulin Calc (S) [Mass/Vol]Ordered By: Joseph Vaughn on 46-00-6401Jxtbrean (S) [Mass/Vol]Serum globulin measurement by calculation (mass/volume)Flower HospitalGlucose [Mass/volume] in Serum or PlasmaOrdered By: Joseph Vaughn on 04-19-2024 Glucose [Mass/Vol]Glucose [Mass/volume] in Serum or BugvngVaqw94-558EldqvyqrcFlower HospitalComment on above:ADA recommended reference rangeRandom Glucose Reference Range is dependent on time and content of last meal. Glucose of more than 200 mg/dL in a nonstressed, ambulatory subject supports the diagnosisof Diabetes Mellitus.Glucose [Mass/volume] in Urine by Test strip Ordered By: Joseph Vaughn on 65-60-7735Aodhyfl Test strip (U) [Mass/Vol] Glucose [Mass/volume] in Urine by Test stripNormalFlower HospitalHematocrit Auto (Bld) [Volume fraction]Ordered By: Joseph Vaughn on 63-64-4691Tbhbzedaxu (Bld) [Volume fraction]Hematocrit [Volume Fraction] of Blood by Automated count34.0-46.4FMercy HospitalHemoglobin Test strip Ql (U)Ordered By: Joseph Vaughn on 27-74-0262Vdsugzguwj Ql (U) Hemoglobin [Presence] in Urine by Test stripNegativeFlower HospitalHemoglobin [Mass/volume] in BloodOrdered By: Joseph Vaughn on 83-48-8472Fotqqehszm (Bld) [Mass/Vol]Hemoglobin [Mass/volume] in Blood11.8-15.4 Flower HospitalHyaline casts [#/area] in Urine sediment by Automated countOrdered By: Joseph Vaughn on 82-82-5021Ynlkpel casts Auto (Urine sed) [#/Area]Hyaline casts [#/area] in Urine sediment by Automated count 0-8Flower HospitalKetones Test strip Ql (U)Ordered By: Joseph Vaughn on 04-49-6279Tikkcgx Ql (U)Ketones [Presence] in Urine by Test stripNegOhioHealth Doctors HospitalLeukocyte esterase [Presence] in Urine by Test stripOrdered By: Joseph Vaughn on 65-13-7115Vrfbiliic esterase Test strip Ql (U)Leukocyte esterase [Presence] in Urine by Test stripHigh NegativeFlower HospitalLeukocytes [#/area] in Urine sediment by Automated countOrdered By: Joseph Vaughn on 53-72-5864WKI Auto (Urine sed) [#/Area]Leukocytes [#/area] in Urine sediment by Automated countHigh0-4 Flower HospitalLeukocytes [#/volume] corrected for nucleated erythrocytes in Blood by Automated counOrdered By: Joseph Vaughn on 53-66-1846XZU corrected for nucl RBC Auto (Bld) [#/Vol]Leukocytes [#/volume] corrected for nucleated erythrocytes in Blood by Automated coun3.8-11.6FMercy HospitalLevetiracetam (Keppra)on 97-67-8378cgaMKDCCbzefx [Mass/Vol]38.8 ug/fBVpswop73.0-40.0The [facility] Physician GroupComment on above:Result Comment: Performed at: - [facility] [address] [id number] Software Support Engineer: Zeke Cowan MD, Phone: [phone] PERFORMED BY: [place] [address] [place] [address] PATHOLOGIST HEDDLE MACHINE OPERATOR ANABELLE SCHAFER M.D.Performed By: #### GLULS #### Point of Care testing ,Levetiracetam levelOrdered By: Joseph Vaughn on 99-29-3477Ecilchvyjamsr (Keppra) Level38.8 ug/mL10.0-40.0Flower HospitalComment on above:Performed at: - [facility] [address] [id number] Director: Zeke Cowan MD, Phone: [phone] Auto (Bld) [#/Vol]Ordered By: Joseph Vaughn on 33-11-2630Yxejtszmqgh (Bld) [#/Vol]Lymphocytes [#/volume] in Blood by Automated count1.00-4.8Flower HospitalLymphocytes/100 WBC Auto (Bld)Ordered By: Joseph Vaughn on 80-32-9850Pckpvcwicxs/100 WBC (Bld)Lymphocytes/100 leukocytes in Blood by Automated count.[facility] HospitalH Auto (RBC) [Entitic mass]Ordered By: Joseph Vaughn on 91-59-5853PYD (RBC) [Entitic mass]MCH [Entitic mass] by Automated count24.7-34.3FMercy Health Springfield Regional Medical CenterHC Auto (RBC) [Mass/Vol]Ordered By: Joseph Vaughn on 49-73-1673YFZM (RBC) [Mass/Vol]MCHC [Mass/volume] by Automated count32.0-35.0[facility] HospitalV Auto (RBC) [Entitic vol]Ordered By: Joseph Vaughn on 73-84-0479ZSM (RBC) [Entitic vol]MCV [Entitic volume] by Automated -490 Flower HospitalMagnesiumon 44-85-1726Qnrrossvl [Mass/Vol]2.1 mg/dLNormal1.9-2.7The [facility] Physician GroupComment on above:Performed By: #### GLULS #### Point of Care testing ,Magnesium [Mass/volume] in Serum or PlasmaOrdered By: Joseph Vaughn on 92-38-2785Daeufewpv [Mass/Vol]Magnesium [Mass/volume] in Serum or Plasma1.9-2.7 F[facility] HospitalMonocyte distribution width [Entitic volume] in Blood by AutomatedOrdered By: Joseph Vaughn on 50-82-3543Lpzdwivr distribution width Auto (Bld) [Entitic vol]Monocyte distribution width [Entitic volume] in Blood by Automated0.00-20.00[facility] Monocytes Auto (Bld) [#/Vol]Ordered By: Joseph Vaughn on 65-65-0786Ejeewxnuv (Bld) [#/Vol]Automated blood monocyte count0.0-0.8Flower HospitalMonocytes/100 WBC Auto (Bld)Ordered By: Joseph Vaughn on 04-19-2024 Monocytes/100 WBC (Bld)Automated monocyte %.[facility] Mucus [Presence] in Urine by AutomatedOrdered By: Joseph Vaughn on 33-65-5738Tjdbg Auto Ql (U)Mucus [Presence] in Urine by AutomatedFlower HospitalNeutrophils Auto (Bld) [#/Vol]Ordered By: Joseph Vaughn on 30-99-0405Uzytwlkpwwy (Bld) [#/Vol]Neutrophils [#/volume] in Blood by Automated count1.8-7.7FMercy HospitalNeutrophils/100 WBC Auto (Bld)Ordered By: Joseph Vaughn on 82-24-7083Ychgyzbjjwd/100 WBC (Bld) Automated neutrophil %.[facility]lower HospitalNitrite Test strip Ql (U)Ordered By: Joseph Vaughn on 34-57-6477Ktovpwo Ql (U)Nitrite [Presence] in Urine by Test stripNegativeFlower HospitalNo Panel InformationOrdered By: Joseph Vaughn on 57-99-9072Cmiaqznhk GFR (CKD-EPI)> 60.0 mL/MinFlower HospitalPharmacy Creatinine Clearance (Chem 94.57Flower HospitalNucleated erythrocytes [Presence] in Blood by Automated countOrdered By: Joseph Vaughn on 86-23-7905Wlppdnzte RBC Auto Ql (Bld)Nucleated erythrocytes [Presence] in Blood by Automated count0-0.5 Flower HospitalPlatelet mean volume Auto (Bld) [Entitic vol] Ordered By: Joseph Vaughn on 76-18-1509Dexzuxtq mean volume (Bld) [Entitic vol]Platelet mean volume [Entitic volume] in Blood by Automated count6.3-10.7 Flower HospitalPlatelets Auto (Bld) [#/Vol]Ordered By: Joseph Vaughn on 66-40-6316Nyciyjoow (Bld) [#/Vol]Platelets [#/volume] in Blood by Automated -795BmfwxonphFlower HospitalPotassium [Moles/volume] in Serum or PlasmaOrdered By: Joseph Vaughn on 04-19-2024 Potassium [Moles/Vol]Potassium [Moles/volume] in Serum or Plasma3.5-5.1FMercy HospitalProlactinon 98-24-5712Lkrfvtfta36.42 ng/mLNormal 3.34-26.72The [facility] Physician GroupComment on above:Result Comment: PERFORMED BY: [address] [address] PATHOLOGIST HEDDLE MACHINE OPERATOR ANABELLE SCHAFER M.D.Performed By: #### GLULS #### Point of Care testing ,Prolactin [Mass/volume] in Serum or PlasmaOrdered By: Joseph Vaughn on 42-85-1622Hutsiquec [Mass/Vol]Prolactin [Mass/volume] in Serum or Plasma 3.34-26.72Flower HospitalProtein Test strip (U) [Mass/Vol] Ordered By: Joseph Vaughn on 21-93-4642Qmgzovo (U) [Mass/Vol]Protein [Mass/volume] in Urine by Test stripNegativeFlower Hospital Protein [Mass/volume] in Serum or PlasmaOrdered By: Joseph Vaughn on 14-19-6497Zrxwqds [Mass/Vol]Protein [Mass/volume] in Serum or Plasma6.4-8.9 Flower HospitalRBC Auto (Bld) [#/Vol]Ordered By: Joseph Vaughn on 65-01-5950XYW (Bld) [#/Vol]Erythrocytes [#/volume] in Blood by Automated count3.60-5.00[facility]itus Medical Centererum or plasma albumin/globulin mass ratioOrdered By: Joseph Vaughn on 04-19-2024 Albumin/Globulin [Mass ratio]Serum or plasma albumin/globulin mass ratio [facility]-T[facility] Medical Centererum or plasma anion gap determinationOrdered By: Joseph Vaughn on 60-08-5081Slthc gap [Moles/Vol]Serum or plasma anion gap determination6.0-15.0[facility]-Titus Medical Centerodium [Moles/volume] in Serum or PlasmaOrdered By: Joseph Vaughn on 11-38-3168Pywqsz [Moles/Vol] Sodium [Moles/volume] in Serum or Igroql446-784TwrvpqwyfFlower Hospital Specific gravity Test strip (U) [Rel density]Ordered By: Joseph Vaughn on 99-75-7409Uqqcozjj gravity (U) [Rel density]Specific gravity of Urine by Test strip1.001-1.030Flower HospitalTroponin I High Sensitivityon 58-97-5613Efxgxxye I High Wimmbufmuhd8Wifuwo3-59Ars [facility] Physician Group Comment on above:Result Comment: The Troponin units of report have been changed to meet the Chest Pain Accreditation requirement, element EC5.M1l2. Troponin units are changed from pg/ml to ng/L. Also, the decimal is removed and results are in whole numbers. PERFORMED BY: [place] [address] PATHOLOGIST HEDDLE MACHINE OPERATOR ANABELLE SCHAFER M.D.Performed By: #### VALP #### [place] [address] USATroponin I.cardiac [Mass/volume] in Serum or Plasma by Detection limit <= 0.01 ng/Ordered By: Joseph Vaughn on 95-27-3833Rpxsxrny I.cardiac DL <= 0.01 ng/mL [Mass/Vol]Troponin I.cardiac [Mass/volume] in Serum or Plasma by Detection limit <= 0.01 ng/0-15[facility] Comment on above:The Troponin units of report have been changed to meet the Chest Pain Accreditation requirement, element EC5.M1l2. Troponin units are changed from pg/ml to ng/L. Also, the decimal is removed and results are in whole numbers.Urea nitrogen [Mass/volume] in Serum or PlasmaOrdered By: Joseph Vaughn on 98-96-6985Mipy nitrogen [Mass/Vol]Urea nitrogen [Mass/volume] in Serum or Plasma09-17Flower HospitalUrine Cultureon 99-29-9532Rtiusrwt identified Cx Nom (U)>100,000 colonies/ml mixed bacterial skin contaminants 2 Days PERFORMED BY: [place] [address] PATHOLOGIST HEDDLE MACHINE OPERATOR ANABELLE SCHAFER M.D.NormalThe [facility] Physician GroupComment on above: Performed By: #### HS TROP #### [place] [address] USAUrine cultureOrdered By: Joseph Vaughn on 04-19-2024 Bacteria identified Cx Nom (U)Urine cultureFlower Hospital Bacteria identified Cx Nom (U)Urine cultureFlower Hospital Urobilinogen Test strip (U) [Mass/Vol]Ordered By: Joseph Vaughn on 11-66-5824Xkkxqttjyjkn (U) [Mass/Vol]Urobilinogen [Mass/volume] in Urine by Test stripNormalFlower HospitalWBC Auto (Bld) [#/Vol]Ordered By: Joseph Vaughn on 02-42-3406OSY (Bld) [#/Vol]Leukocytes [#/volume] in Blood by Automated count3.8-11.6FMercy HospitalpH Test strip (U) Ordered By: Joseph Vaughn on 98-52-8481xN (U)pH of Urine by Test strip 5.0-9.0Flower HospitalHbA1c (Bld) [Mass fraction]on 04-14-2024 Interpretation and review of laboratory resultsNormalNOMS HealthcareNOMS HealthcareLaboratory - Chemistry and Chemistry - challengeon 92-42-4780Mmvwewn DL <= 20 mg/L (U) [Mass/Vol]30 mg/dLMissouri Baptist Medical CenterAlbumin/Creatinine DL <= 1.0 mg/L (U) [Ratio][facility] CenterCreatinine (U) [Mass/Vol]100 mg/dLMissouri Baptist Medical Center Laboratory - Hematology and Cell countson 35-82-1587ZhP7i (Bld) [Mass fraction] 5.5 %[facility] Medical CenterMM screening mammo BI w/CADon 81-25-1015IJ screening mammo BI w/CADMER[facility] [place] [address] [place], [place] [address] Mammography Report Signed Patient: Kelsey Graves MR#: [id number] : 1980 Acct:[id number] Age/Sex: 43 / F ADM Date: 04/14/24 Loc: [place] Room: Type: [facility] Attending Dr: Referral Self Copies to: Delgado Valdez MD SELF,REFERRAL Ordering Provider: SELF,REFERRAL Date of Service: 04/14/24 MM/MM screening mammo BI w/CAD: SCREENING CLINICAL DATA: Screening for malignancy. SCREENING MAMMOGRAM - FULL FIELD DIGITAL WITH TOMOSYNTHESIS AND CAD COMPARISON:2023 Tomosynthesis craniocaudal and mediolateral oblique views of both breasts were obtained using low- dose digital technique. This examination was reviewed with the aid of CAD. The breast tissue is composed of scattered fibroglandular densities. There are no dominant masses, typically malignant calcifications or architectural distortion. There has been no significant interval change. MM/MM screening mammo [...] target due date for the next mammogram. Impression dictated by: Deangelo Nunn M.D.04/14/2024 5:14 PM Dictation Location: [facility]01 Transcribed By: SYLVIA 04/14/241713 Dictated By: Deangelo Nunn MD 04/14/241710 Signed By: 04/14/24 [facility] Physician GroupMammography reportOrdered By: Deangelo Nunn on 80-38-9971Krydaapmcn imaging studyMERCY HEALTH TIFFIN [facility]OSPITAL [place] [address] [place] [address] Mammography Report Signed Patient: Kelsey Graves MR#: [id number] : 1980 Acct:[id number] Age/Sex: 43 / F ADM Date: 5 Loc: [place] Room: Type: [facility] Attending Dr: Referral Self Copies to: Delgado Valdez MD SELF,REFERRAL ~ Ordering Provider: SELF,REFERRAL Date of Service: 04/14/24 MM/MM screening mammo BI w/CAD: SCREENING CLINICAL DATA: Screening for malignancy. SCREENING MAMMOGRAM - FULL FIELD DIGITAL WITH TOMOSYNTHESIS AND CAD COMPARISON:2023 Tomosynthesis craniocaudal and mediolateral oblique views of both breasts were obtained using low-dose digital technique. This examination was reviewed with the aid of CAD. The breast tissue is composed of scattered fibroglandular densities. There are no dominant masses, typically malignant calcifications or architectural distortion. There has been no significant interval change. MM/MM screening mammo [...] target due date for the next mammogram. Impression dictated by: Deangelo Nunn M.D.04/14/2024 5:14 PM Dictation Location: [facility]01 Transcribed By: SYLVIA 04/14/241713 Dictated By: Deangelo Nunn MD 04/14/241710 Signed By: 04/14/24 [facility] Work Phone: Panel Informationon 95-70-9773Bohzxuplkrdykv and review of laboratory resultsNoAdventHealth DurandAppearance of UrineOrdered By: Nat Gutierrez on 09-62-2016Hdxsbojuri (U)Urine appearanceClear Flower HospitalBacteria [Presence] in Urine by Automated Ordered By: Nat Gutierrez on 47-19-0967Sjjwpfvs Auto Ql (U)Bacteria [Presence] in Urine by AutomatedNone [facility] Citizens HospitalBasic Metabolic Panelon 55-54-8423Slidr gap [Moles/Vol]10.6 mmol/LNormal6.0-15.0The [facility] Physician GroupComment on above:Performed By: #### CBC, T4F, BMP, TSH3 ####[place] [address] [place] [address] USACalcium [Mass/Vol]9.0 mg/dLNormal8.6-10.3The [facility] Physician GroupComment on above: Performed By: #### CBC, T4F, BMP, TSH3 ####[address] [address] USAChloride [Moles/Vol]102 mmol/SUpzzde93-563Ylz [facility] Physician [facility] Health SystemComment on above:Performed By: #### CBC, T4F, BMP, TSH3 ####[address] [address] USACO2 [Moles/Vol]28.3 mmol/SQwkdak76.0-31.0The [facility] Physician GroupComment on above:Performed By: #### CBC, T4F, BMP, TSH3 ####[address] [address] USACreatinine [Mass/Vol]0.67 mg/dLNormal 0.60-1.20The [facility] Physician GroupComment on above:Performed By: #### CBC, T4F, BMP, TSH3 ####[address] [address] USACreatinine Clr Calc Rpjilmfs39.00NormalThe [facility]ician [facility] Comment on above:Performed By: #### CBC, T4F, BMP, TSH3 ####[place] [place] [address] USAGFR/1.73 sq M.predicted MDRD (S/P/Bld) [Vol rate/Area]mL/min/{1.73_m2}NormalThe [facility]ician Group Comment on above:Performed By: #### CBC, T4F, BMP, TSH3 ####[place] [id number] USAGlucose [Mass/Vol]129 mg/dLHigh 70-100The [facility] Physician GroupComment on above:Result Comment: Random Glucose Reference Range is dependent on time and content of last meal. Glucose of more than 200 mg/dL in a nonstressed, ambulatory subject supports the diagnosis of Diabetes Mellitus. ADA recommended reference rangePerformed By: #### CBC, T4F, BMP, TSH3 ####[address] [address] [place] Potassium [Moles/Vol]3.9 mmol/LNormal3.5-5.1The [facility] Physician GroupComment on above:Performed By: #### CBC, T4F, BMP, TSH3 ####[place] [address] USASodium [Moles/Vol]137 mmol/LNormal 136-145The [facility] Physician GroupComment on above:Performed By: #### CBC, T4F, BMP, TSH3 ####[address] [address] USAUrea nitrogen [Mass/Vol]12 mg/dLNormal7-25The [facility]ician [facility] Comment on above:Performed By: #### CBC, T4F, BMP, TSH3 ####[address] [address] USABasophils Auto (Bld) [#/Vol] Ordered By: Nat Gutierrez on 06-56-1768Ddftybjlh (Bld) [#/Vol]Automated basophil count0.0-0.2FMercy HospitalBasophils/100 WBC Auto (Bld)Ordered By: Nat Gutierrez on 57-00-8156Aozxnpqkb/100 WBC (Bld)Automated basophil %.Flower HospitalBilirubin Test strip Ql (U)Ordered By: Nat Gutierrez on 94-32-7977Heospzfod Ql (U)Bilirubin.total [Presence] in Urine by Test stripNegativeFlower HospitalCOVID Cepheid NegativeOrdered By: Nat Gutierrez on 94-73-9724UIMM-CoV-2 (COVID-19) Ab [place] Ql COVID CepheidNegativeFlower HospitalComment on above:This is a duplicate Cepheid Xpert Xpress CoV-2/Flu/RSV Plus RNA by RT-PCR result to be used for statistical tracking purpose only.COVID-19 / Flu A/B / RSV PCRon 37-53-2487CAQO-CoV-2 (COVID-19) RNA ANTHONY+probe Ql (Unsp spec)COVID-19 Cepheid Result Negative for SARS-CoV-2 RNA by RT-PCR Flu A Cepheid Result Negative for Flu A RNA by RT-PCR Flu B Cepheid Result Negative for Flu B RNA by RT-PCR RSV Cepheid Result Negative for RSV RNA by RT-PCR COVID19 Blank Space Reference: Negative COVID19 Blank Space Cepheid Disclaimer The Cepheid Xpert Xpress CoV-2/Flu/RSV Plus has Cepheid Disclaimer not been FDA cleared or approved; this test has Cepheid Disclaimer been authorized by FDA under an EUA for use by Cepheid Disclaimer authorized laboratories; this test has been Cepheid Disclaimer authorized only for the simultaneous qualitative Cepheid Disclaimer detection and differentiation of nucleic acids from Cepheid Disclaimer SARS-CoV-2, influenza A, influenza B, and Cepheid Disclaimer respiratory syncytial virus (RSV), and not for any Cepheid Disclaimer other viruses or pathogens; and this test is only Cepheid Disclaimer authorized for the duration of the declaration that Cepheid Disclaimer circumstances exist justifying the authorization of Cepheid Disclaimer emergency use of in vitro diagnostic tests for Cepheid Disclaimer detection and/or diagnosis of COVID-19 under Cepheid Disclaimer Section 564(b)(1) of the Act, 21 U.S.C. 360bbb- Cepheid Disclaimer 3(b)(1), unless the authorization is terminated or Cepheid Disclaimer revoked sooner. PERFORMED BY: [place] [address] PATHOLOGIST HEDDLE MACHINE OPERATOR ANABELLE SCHAFER M.D.[facility] Physician GroupComment on above: Performed By: #### GLULS #### Point of Care testing ,CT cervical spine wo [facility] 40-89-7500ZC cervical spine wo [facility] [place] [address] [place] [address] CT Scan Report Signed Patient: Kelsey Graves MR#: [id number] : 1980 Acct:[id number] Age/Sex: 43 / F ADM Date: 01/15/24 Loc: ER Room: Type: [facility] ER Attending Dr: Copies to: Nat Gutierrez MD Ordering Provider: Nat Gutierrez MD Date of Service: 01/15/24 CT/CT cervical spine wo con: ams, seizure ([id number]) CT/CT head/brain wo con: ams, seizure Unenhanced head CT TECHNIQUE: Contiguous axial imaging of the head. The CT exam was performed using one or more the following dose reduction techniques: Automated exposure control, adjustment of the MA and/or Kv according to patient size, or use of the iterative reconstruction technique. COMPARISON: 05/30/2023 HISTORY: Seizure. Headache. VENTRICLES: Within normal limits ATROPHY: None BRAIN PARENCHYMA: Adequate orellana-white matter differentiation identified. HEMORRHAGE: None HERNIATION: No mass effect or herniation INFARCTION: No recent vascular distribution infarction is seen. EXTRA-AXIAL FLUID COLLECTIONS None MIDBRAIN: Unremarkable ISIAH: Unremarkable MEDULLA: Unremarkable SINUSES: Unremarkable ORBITS: Grossly unremarkable MASTOIDS: Unremarkable BONY STRUCTURES Intact ADDITIONAL FINDINGS: CT/CT head/brain wo con IMPRESSION: No acute findings. CT Cervical Spine withoutcontrast TECHNIQUE: Axial imaging with 2-D and 3-D reconstruction. The CT exam was performed using one or more the following dose reduction techniques: Automated exposure control, adjustment of the MA and/or Kv according to patient size, or use of the iterative reconstruction technique. COMPARISON: None HISTORY: As above POST SURGERY CHANGES: None BONY ALIGNMENT: Straightening BONY SPINAL CANAL: Patent central bony canal FRACTURE: None BONY LESIONS: None SOFT TISSUES: Unremarkable DEGENERATIVE CHANGES: Spondylosis greatest at the C6-7 level. Mild degenerative listhesis LUNG APICES: Unremarkable ADDITIONAL FINDINGS: IMPRESSION: No acute process Impression dictated by: Pardeep Montoya M.D.01/15/2024 9:45 AM Dictation Location: [place] [address] Transcribed By: [facility] 01/15/24 0945 Dictated By: Pardeep Montoya DO 01/15/24 0934 Signed By: 01/15/24 0945NormMemorial Regional Hospital South Physician GroupCalcium [Mass/volume] in Serum or PlasmaOrdered By: Nat Gutierrez on 15-00-5544Njspdbg [Mass/Vol]Calcium [Mass/volume] in Serum or Plasma8.6-10.3FMercy HospitalCarbon dioxide, total [Moles/volume] in Serum or PlasmaOrdered By: aNt Gutierrez on 10-27-3024KN9 [Moles/Vol]Carbon dioxide, total [Moles/volume] in Serum or Plasma 21.0-31.0Flower HospitalCepheid COVID PCR Negativeon 48-04-8220DPUS-CoV-2 (COVID-19) RNA ANTHONY+probe Ql (Unsp spec)NegativeNormal NegativeThe [facility] Physician GroupComment on above:Result Comment: This is a duplicate Cepheid Xpert Xpress CoV-2/Flu/RSV Plus RNA by RT-PCR result to be used for statistical tracking purpose only. PERFORMED BY: [facility] [address] [place] [address] PATHOLOGIST HEDDLE MACHINE OPERATOR ANABELLE SCHAFER M.D.Performed By: #### COVID19 FLU RSV, CEPHEID NEG ####[place] [id number] [place] Chloride [Moles/volume] in Serum or PlasmaOrdered By: Nat Gutierrez on 88-47-5461Jzxwnveo [Moles/Vol]Chloride [Moles/volume] in Serum or Pcpxzz62-421 Flower HospitalColor Auto (U)Ordered By: Nat Gutierrez on 33-72-1839Qztyj (U)Color of Urine by AutoYellowFlower Hospital Complete Blood Count Auto Diffon 76-70-8192Cufhnjaux (Bld) [#/Vol]0.2 10*3/uL Normal0.0-0.2The [facility] Physician GroupComment on above:Result Comment: PERFORMED BY: [address]ieDANIELLE [address] [id number] PATHOLOGIST HEDDLE MACHINE OPERATOR ANABELLE SCHAFER M.D.Performed By: #### CBC, T4F, BMP, TSH3 ####[place] [id number] USABasophils/100 WBC (Bld)2.2 %Normal.The [facility] Physician GroupComment on above:Performed By: #### CBC, T4F, BMP, TSH3 ####[place] [id number] USAEosinophils (Bld) [#/Vol]0.1 10*3/uLNormal0.0-0.45The [facility] Physician GroupComment on above:Performed By: #### CBC, T4F, BMP, TSH3 ####[place] [id number] [place] Eosinophils/100 WBC (Bld)1.1 %Normal.The [facility] Physician GroupComment on above:Performed By: #### CBC, T4F, BMP, TSH3 ####[place] [id number] USAErythrocyte distribution width (RBC) [Ratio]13.7 %Wrpmbl56.9-15.3The [facility] Physician GroupComment on above: Performed By: #### CBC, T4F, BMP, TSH3 ####[place] [address] USAHematocrit (Bld) [Volume fraction]37.6 %Normal 34.0-46.4The [facility] Physician GroupComment on above:Performed By: #### CBC, T4F, BMP, TSH3 ####[place] [address] USAHemoglobin (Bld) [Mass/Vol]12.6 g/dKAhgapy50.8-15.4The [facility] Physician GroupComment on above:Performed By: #### CBC, T4F, BMP, TSH3 ####[place] [address] [place] Lymphocytes (Bld) [#/Vol]1.2 10*3/uLNormal1.00-4.8The [facility] Physician Group Comment on above:Performed By: #### CBC, T4F, BMP, TSH3 ####[place] [address] USALymphocytes/100 WBC (Bld)16.3 % Normal.The [facility] Physician GroupComment on above:Performed By: #### CBC, T4F, BMP, TSH3 ####[address]H (RBC) [Entitic mass]31.6 agYezjmk19.7-34.3The [facility] Physician GroupComment on above:Performed By: #### CBC, T4F, BMP, TSH3 ####[address]V (RBC) [Entitic vol]94.3 sLKtxfcl86-224Cwp [facility] Physician GroupComment on above:Performed By: #### CBC, T4F, BMP, TSH3 ####[place] [address] USAMean Corpuscular HGB Conc33.5 g/lZKokayy51.0-35.0The [facility] Physician GroupComment on above:Performed By: #### CBC, T4F, BMP, TSH3 ####[address] [address] [place] Monocytes (Bld) [#/Vol]0.5 10*3/uLNormal0.0-0.8The [facility] Physician Group Comment on above:Performed By: #### CBC, T4F, BMP, TSH3 ####[address] [address] USAMonocytes/100 WBC (Bld)20.86 % High0.00-20.00The [facility] Physician GroupComment on above:Result Comment: For adults in ED, MDW > 20.0 may be associated with a higher risk of sepsis during the first 12 hrs of hospital admissionPerformed By: #### CBC, T4F, BMP, TSH3 ####[place] [id number] USAMonocytes/100 WBC (Bld)7.1 %Normal.The [facility]ician Group Comment on above:Performed By: #### CBC, T4F, BMP, TSH3 ####[place] [address] USANeutrophils (Bld) [#/Vol]5.3 10*3/uLNormal1.8-7.7The [facility] Physician GroupComment on above:Performed By: #### CBC, T4F, BMP, TSH3 ####[address] [address] USANeutrophils/100 WBC (Bld)73.3 %Normal.The [facility] Physician GroupComment on above:Performed By: #### CBC, T4F, BMP, TSH3 ####[place] [id number] USANRBC%0.1 /100{WBC}Normal0-0.5The [facility] Physician GroupComment on above:Performed By: #### CBC, T4F, BMP, TSH3 ####[place] [id number] USAPlatelet mean volume (Bld) [Entitic vol]8.6 fLNormal 6.3-10.7The [facility] Physician GroupComment on above:Performed By: #### CBC, T4F, BMP, TSH3 ####[place] [address] USAPlatelets (Bld) [#/Vol]243 10*3/hUGvvtij941-340Lyk [facility] Physician GroupComment on above:Performed By: #### CBC, T4F, BMP, TSH3 ####[place] [address] USARBC (Bld) [#/Vol]3.99 10*6/uLNormal3.60-5.00The [facility] Physician GroupComment on above:Performed By: #### CBC, T4F, BMP, TSH3 ####[place] [id number] USAWBC (Bld) [#/Vol]7.2 10*3/uLNormal3.8-11.6The [facility] Physician GroupComment on above:Performed By: #### CBC, T4F, BMP, TSH3 ####[place] [address] [place] Creatinine [Mass/volume] in Serum or PlasmaOrdered By: Nat Gutierrez on 22-81-6015Kuoytbegjk [Mass/Vol]Creatinine [Mass/volume] in Serum or Plasma 0.60-1.20Flower HospitalDipstick and Microscopicon 01-15-2024 Appearance (U)ClearNormalClearThe [facility] Physician GroupComment on above: Order Comment: Name Collection Type:: Clean-Voided MidstreamPerformed By: #### GLULS #### Point of Care testing ,Bacteria,UrineNone SeenNormalNone SeenThe [facility] Physician GroupComment on above:Order Comment: Name Collection Type:: Clean-Voided MidstreamPerformed By: #### GLULS #### Point of Care testing ,Bilirubin,UrineNegativeNormalNegativeThe [facility] Physician GroupComment on above:Order Comment: Name Collection Type:: Clean-Voided MidstreamPerformed By: #### GLULS #### Point of Care testing ,Color (U)Light-YellowNormalYellowThe [facility] Physician GroupComment on above: Order Comment: Name Collection Type:: Clean-Voided MidstreamPerformed By: #### GLULS #### Point of Care testing ,Glucose Ql (U)NormalNormalNormalThe [facility] Physician GroupComment on above: Order Comment: Name Collection Type:: Clean-Voided MidstreamPerformed By: #### GLULS #### Point of Care testing ,Hyaline Casts,UrineNoneNormal0-8The [facility] Physician GroupComment on above: Order Comment: Name Collection Type:: Clean-Voided MidstreamPerformed By: #### GLULS #### Point of Care testing ,Ketones Ql (U)NegativeNormalNegativeNch Healthcare System - [facility] Naples Physician GroupComment on above:Order Comment: Name Collection Type:: Clean-Voided MidstreamPerformed By: #### GLULS #### Point of Care testing ,Leukocyte esterase Test strip Ql (U)2+HighNegativeNch Healthcare System - [facility] Physician Group Comment on above:Order Comment: Name Collection Type:: Clean-Voided Midstream Performed By: #### GLULS #### Point of Care testing ,Mucus,UrineRareNormalThe [facility] Physician GroupComment on above:Order Comment: Name Collection Type:: Clean-Voided MidstreamResult Comment: PERFORMED BY: [address] [place] [address] PATHOLOGIST HEDDLE MACHINE OPERATOR ANABELLE SCHAFER M.D.Performed By: #### GLULS #### Point of Care testing ,Nitrite,UrineNegativeNormalNegativeNch Healthcare System - [facility] Physician GroupComment on above:Order Comment: Name Collection Type:: Clean-Voided MidstreamPerformed By: #### GLULS #### Point of Care testing ,Occult Blood,UrineNegativeNormalNegativeThe [facility] Physician GroupComment on above:Order Comment: Name Collection Type:: Clean-Voided MidstreamResult Comment: PERFORMED BY: [address] [address] PATHOLOGIST HEDDLE MACHINE OPERATOR ANABELLE SCHAFER M.D.Performed By: #### GLULS #### Point of Care testing ,pH (U)5.5 [pH]Normal5.0-9.0The [facility] Physician GroupComment on above:Order Comment: Name Collection Type:: Clean-Voided MidstreamPerformed By: #### GLULS #### Point of Care testing ,Protein,UrineNegativeNormalNegativeThe [facility] Physician GroupComment on above:Order Comment: Name Collection Type:: Clean-Voided MidstreamPerformed By: #### GLULS #### Point of Care testing ,RBC,Urine1 [HPF]Normal0-4The [facility] Physician GroupComment on above:Order Comment: Name Collection Type:: Clean-Voided MidstreamPerformed By: #### GLULS #### Point of Care testing ,Specificy Raymond,Urine1.202Loixrg1.001-1.030The [facility] Physician Group Comment on above:Order Comment: Name Collection Type:: Clean-Voided Midstream Performed By: #### GLULS #### Point of Care testing ,Squamous Epithelial Cell,Urine1 [HPF]Normal0-2The [facility]ician Group Comment on above:Order Comment: Name Collection Type:: Clean-Voided Midstream Performed By: #### GLULS #### Point of Care testing ,Urobilinogen,UrineNormalNormalNormalThe [facility] Physician GroupComment on above:Order Comment: Name Collection Type:: Clean-Voided MidstreamPerformed By: #### GLULS #### Point of Care testing ,WBC,Urine5 [HPF]High0-4The [facility] Physician GroupComment on above:Order Comment: Name Collection Type:: Clean-Voided MidstreamPerformed By: #### GLULS #### Point of Care testing ,ECG 12 lead ECGon 09-67-3037JJP 12 lead [facility]MER[facility] Main [address] [address] Electrocardiograph Report Signed Patient: Kelsey Graves MR#: [id number] : 1980 Acct:[id number] Age/Sex: 43 / F ADM Date: 01/15/24 Loc: ER Room: Type: REG ER Attending Dr: Ordering Provider: Nat Gutierrez MD Date of Service: 01/15/24 ECG/ECG 12 lead ECG: Seizure Copies to: Test Reason : Blood Pressure : */* mmHG Vent. Rate : 74 BPM Atrial Rate : 74 BPM P-R Int : 156 ms QRS Dur : 116 ms QT Int : 410 ms P-R-T Axes : 59 -63 61 degrees QTcB Int : 455 ms Normal sinus rhythm Right bundle branch block Left anterior fascicular block Bifascicular block Abnormal ECG Nonspecific T wave abnormality When compared with ECG of 11-Jun-2023 22:03, Right bundle branch block has replaced Incomplete right bundle branch block Confirmed by Nat Gutierrez MD ([id number]) on 01/15/2024 8:42:49 AM Referred By: Electronically Signed By: Nat Gutierrez MD Transcribed By: MUS Signed By Nat Gutierrez MD 12/26 03/19 0842[facility] Physician GroupEosinophils Auto (Bld) [#/Vol] Ordered By: Nat Gutierrez on 24-30-4059Paifqgdnxvb (Bld) [#/Vol]Automated eosinophil count0.0-0.45Flower HospitalEosinophils/100 WBC Auto (Bld)Ordered By: Nat Gutierrez on 65-78-9931Tlvntywmwjz/100 WBC (Bld) Automated eosinophil %.Flower HospitalEpithelial cells.squamous [#/area] in Urine sediment by Automated countOrdered By: Nat Gutierrez on 06-67-2151Bdafqrhfeb cells.squamous Auto (Urine sed) [#/Area] Epithelial cells.squamous [#/area] in Urine sediment by Automated count0-2 Flower HospitalErythrocyte distribution width Auto (RBC) [Ratio]Ordered By: Nat Gutierrez on 61-33-3187Mhvijusolbq distribution width (RBC) [Ratio]Erythrocyte distribution width [Ratio] by Automated count11.9-15.3 Flower HospitalErythrocytes [#/area] in Urine sediment by Automated countOrdered By: Nat Gutierrez on 80-17-6860DXF Auto (Urine sed) [#/Area]Erythrocytes [#/area] in Urine sediment by Automated count0-4FMercy HospitalFree T4 (Free Thyroxine)on 39-63-6191Nfmi T4 [Mass/Vol] 1.04 ng/dLNormal0.61-1.12The [facility] Physician GroupComment on above:Performed By: #### CBC, T4F, BMP, TSH3 ####[facility] [address] [place] [address] USAGlucose Glucometer (dC) [Mass/Vol]Ordered By: Nat Gutierrez on 30-60-1956Xqmhtsa [Mass/Vol]Capillary blood glucose measurement by glucometer (mass/volume)Flower HospitalComment on above:Random Glucose Reference Range is dependent on time and content of last meal. Glucose of more than 200 mg/dL in a nonstressed, ambulatory subject supports the diagnosis of Diabetes Mellitus.Glucose Poct Glucometerson 35-09-6831Wdmsgwo9Iub9: Cleaned MeterNoBlowing Rock Hospital Physician [facility] Health SystemComment on above:Result Comment: PERFORMED BY: [facility] [address] [place] [address] PATHOLOGIST HEDDLE MACHINE OPERATOR ANABELLE SCHAFER M.D.Performed By: #### HS TROP #### [facility] [address] [place] [address] USAGlucose [Mass/Vol]135 mg/dLNormMemorial Regional Hospital South Physician [facility] Behavior[facility] Health SystemComment on above:Result Comment: Random Glucose Reference Range is dependent on time and content of last meal. Glucose of more than 200 mg/dL in a nonstressed, ambulatory subject supports the diagnosis of Diabetes Mellitus.Performed By: #### HS TROP #### [facility] [address] [place] [id number] USAGlucose [Mass/volume] in Serum or PlasmaOrdered By: Nat Gutierrez on 28-03-3581Flahayz [Mass/Vol]Glucose [Mass/volume] in Serum or Plasma Iihv73-606TlnuvgllqFlower HospitalComment on above:ADA recommended reference rangeRandom Glucose Reference Range is dependent on time and content of last meal. Glucose of more than 200 mg/dL in a nonstressed, ambulatory subject supports the diagnosisof Diabetes Mellitus.Glucose [Mass/volume] in Urine by Test stripOrdered By: Nat Gutierrez on 24-03-1228Jlvauej Test strip (U) [Mass/Vol]Glucose [Mass/volume] in Urine by Test stripNormalFlower HospitalHematocrit Auto (Bld) [Volume fraction]Ordered By: Nat Gutierrez on 66-60-6757Ieabsleemj (Bld) [Volume fraction]Hematocrit [Volume Fraction] of Blood by Automated count34.0-46.4FMercy Hospital Hemoglobin Test strip Ql (U)Ordered By: Nat Gutierrez on 90-95-8788Xpnrkyspof Ql (U)Hemoglobin [Presence] in Urine by Test stripNegativeFlower HospitalHemoglobin [Mass/volume] in BloodOrdered By: Nat Gutierrez on 59-63-7465Sohdqcxnjn (Bld) [Mass/Vol]Hemoglobin [Mass/volume] in Blood11.8-15.4 Flower HospitalHyaline casts [#/area] in Urine sediment by Automated countOrdered By: Nat Gutierrez on 22-42-0900Nthkedy casts Auto (Urine sed) [#/Area]Hyaline casts [#/area] in Urine sediment by Automated count0-8 Flower HospitalKetones Test strip Ql (U)Ordered By: Nat Gutierrez on 80-17-2495Teonxbp Ql (U)Ketones [Presence] in Urine by Test strip NegativeFlower HospitalLeukocyte esterase [Presence] in Urine by Test stripOrdered By: Nat Gutierrez on 80-02-0775Pftusflva esterase Test strip Ql (U)Leukocyte esterase [Presence] in Urine by Test stripHighNegative Flower HospitalLeukocytes [#/area] in Urine sediment by Automated countOrdered By: Nat Gutierrez on 49-70-4973OIN Auto (Urine sed) [#/Area]Leukocytes [#/area] in Urine sediment by Automated countHigh0-4FMercy HospitalLeukocytes [#/volume] corrected for nucleated erythrocytes in Blood by Automated counOrdered By: Nat Gutierrez on 01-15-2024 WBC corrected for nucl RBC Auto (Bld) [#/Vol]Leukocytes [#/volume] corrected for nucleated erythrocytes in Blood by Automated coun3.8-11.6FMercy HospitalLevetiracetam (Keppra)on 61-03-6569zymQVHCHvdndp [Mass/Vol]8.9 ug/mLLow10.0-40.0The [facility] Physician GroupComment on above:Result Comment: Performed at: - Lab[address] [id number] Software Support Engineer: Zeke Cowan MD, Phone: [phone] PERFORMED BY: [facility] [address] [place] [address] PATHOLOGIST HEDDLE MACHINE OPERATOR ANABELLE SCHAFER M.D.Performed By: #### GLULS #### Point of Care testing ,Lymphocytes Auto (Bld) [#/Vol]Ordered By: Nat Gutierrez on 01-15-2024 Lymphocytes (Bld) [#/Vol]Lymphocytes [#/volume] in Blood by Automated count 1.00-4.8Flower HospitalLymphocytes/100 WBC Auto (Bld)Ordered By: Nat Gutierrez on 93-38-8437Xwrinukxdkz/100 WBC (Bld)Lymphocytes/100 leukocytes in Blood by Automated count.[facility] Auto (RBC) [Entitic mass]Ordered By: Nat Gutierrez on 22-73-0228EUX (RBC) [Entitic mass]MCH [Entitic mass] by Automated count24.7-34.3FMercy Health Springfield Regional Medical CenterHC Auto (RBC) [Mass/Vol]Ordered By: Nat Gutierrez on 33-44-1799ATVO (RBC) [Mass/Vol]MCHC [Mass/volume] by Automated count32.0-35.0Flower HospitalMCV Auto (RBC) [Entitic vol]Ordered By: Nat Gutierrez on 64-92-9908TSV (RBC) [Entitic vol]MCV [Entitic volume] by Automated vzwih12-844 Flower HospitalMonocyte distribution width [Entitic volume] in Blood by AutomatedOrdered By: Nat Gutierrez on 70-55-4510Zymvtqpf distribution width Auto (Bld) [Entitic vol]Monocyte distribution width [Entitic volume] in Blood by AutomatedHigh0.00-20.00Flower HospitalComment on above:For adults in ED, MDW > 20.0 may be associated with a higher risk of sepsis during the first 12 hrs of hospital admissionMonocytes Auto (Bld) [#/Vol] Ordered By: Nat Gutierrez on 54-81-4392Nqpsrhvma (Bld) [#/Vol]Automated blood monocyte count0.0-0.8Flower HospitalMonocytes/100 WBC Auto (Bld)Ordered By: Nat Gutierrez on 48-29-7595Gtqmqkfdu/100 WBC (Bld)Automated monocyte %.Flower HospitalMucus [Presence] in Urine by AutomatedOrdered By: Nat Gutierrez on 28-09-1672Wrktg Auto Ql (U)Mucus [Presence] in Urine by AutomatedFlower HospitalNeutrophils Auto (Bld) [#/Vol]Ordered By: Nat Gutierrez on 32-61-4982Uztdqzwcosy (Bld) [#/Vol]Neutrophils [#/volume] in Blood by Automated count1.8-7.7FMercy HospitalNeutrophils/100 WBC Auto (Bld)Ordered By: Nat Gutierrez on 10-38-1510Mlssofyhada/100 WBC (Bld)Automated neutrophil %.Flower HospitalNitrite Test strip Ql (U)Ordered By: Nat Gutierrez on 01-15-2024 Nitrite Ql (U)Nitrite [Presence] in Urine by Test stripNegativeFlower HospitalNo Panel InformationOrdered By: Nat Gutierrez on 58-45-7964Hxkbgjx Glucose CommentGlu2: cleaned meterFlower HospitalEstimated GFR (CKD-EPI)> 60.0 mL/MinFlower Hospital Pharmacy Creatinine Clearance (Chem91.00[facility] Nucleated erythrocytes [Presence] in Blood by Automated countOrdered By: Nat Gutierrez on 80-36-8958Wdageznlm RBC Auto Ql (Bld)Nucleated erythrocytes [Presence] in Blood by Automated count0-0.5FMercy Hospital Platelet mean volume Auto (Bld) [Entitic vol]Ordered By: Nat Gutierrez on 48-88-9898Gkyhesdy mean volume (Bld) [Entitic vol]Platelet mean volume [Entitic volume] in Blood by Automated count6.3-10.7FMercy Hospital Platelets Auto (Bld) [#/Vol]Ordered By: Nat Gutierrez on 74-04-0802Fmnwaguan (Bld) [#/Vol]Platelets [#/volume] in Blood by Automated mtagv523-523VjttffprxFlower HospitalPotassium [Moles/volume] in Serum or PlasmaOrdered By: Nat Gutierrez on 43-00-1978Cjhedgsiq [Moles/Vol]Potassium [Moles/volume] in Serum or Plasma3.5-5.1FMercy HospitalProtein Test strip (U) [Mass/Vol]Ordered By: Nat Gutierrez on 95-68-5215Gsvqpyj (U) [Mass/Vol]Protein [Mass/volume] in Urine by Test stripNegativeFlower HospitalRBC Auto (Bld) [#/Vol]Ordered By: Nat Gutierrez on 39-81-6964YPF (Bld) [#/Vol] Erythrocytes [#/volume] in Blood by Automated count3.60-5.00Flower HospitalRespiratory specimen influenza A virus, influenza B virus, respiratory syncytical virOrdered By: Nat Gutierrez on 12-44-4216ZAPG-CoV-2 (COVID-19) RNA ANTHONY+probe Ql (Unsp spec)Respiratory specimen influenza A virus, influenza B virus, respiratory syncytical virFlower Hospital Serum or plasma anion gap determinationOrdered By: Nat Gutierrez on 01-15-2024 Anion gap [Moles/Vol]Serum or plasma anion gap determination6.0-15.0Fisher-Titus Medical Centerodium [Moles/volume] in Serum or PlasmaOrdered By: Nat Gutierrez on 60-45-0461Qlldgk [Moles/Vol]Sodium [Moles/volume] in Serum or Hscqbn561-321ZsyrxsmfmFisher-Titus Medical Centerpecific gravity Test strip (U) [Rel density]Ordered By: Nat Gutierrez on 40-45-0299Gjkoyoac gravity (U) [Rel density]Specific gravity of Urine by Test strip1.001-1.030Flower HospitalThyroid Stimulating Hormoneon 98-96-2167XEI Qn3.08 m[IU]/LNormal 0.45-5.33The [facility] Physician GroupComment on above:Result Comment: PERFORMED BY: [place] [address] PATHOLOGIST HEDDLE MACHINE OPERATOR ANABELLE SCHAFER M.D.Performed By: #### CBC, T4F, BMP, TSH3 ####[facility] [address] [place] [address] USAThyrotropin [Units/volume] in Serum or PlasmaOrdered By: Nat Gutierrez on 70-00-4249ESH Qn Thyrotropin [Units/volume] in Serum or Plasma0.45-5.33Flower HospitalThyroxine (T4) free [Mass/volume] in Serum or PlasmaOrdered By: Nat Gutierrez on 25-13-3817Kwok T4 [Mass/Vol]Thyroxine (T4) free [Mass/volume] in Serum or Plasma0.61-1.12Flower HospitalTroponin I High Sensitivityon 33-26-1647Tzjyeutx I High Sensitivity5.7 pg/mLNormal0.0-15.0The [facility] Physician GroupComment on above:Result Comment: PERFORMED BY: [place] [address] PATHOLOGIST HEDDLE MACHINE OPERATOR ANABELLE SCHAFER M.D.Performed By: #### HS TROP #### [place] [address] USATroponin I.cardiac [Mass/volume] in Serum or Plasma by Detection limit <= 0.01 ng/Ordered By: Nat Gutierrez on 16-86-0466Dfgfdlyt I.cardiac DL <= 0.01 ng/mL [Mass/Vol]Troponin I.cardiac [Mass/volume] in Serum or Plasma by Detection limit <= 0.01 ng/0.0-15.0Flower HospitalUrea nitrogen [Mass/volume] in Serum or PlasmaOrdered By: Nat Gutierrez on 96-68-8028Leiu nitrogen [Mass/Vol]Urea nitrogen [Mass/volume] in Serum or Plasma09-17Flower HospitalUrine Cultureon 64-02-6276Tszcxehq identified Cx Nom (U)ORGANISM: Strep agalactiae - (group b) (O:STRAGA) [place] Count 40,000 PERFORMED BY: [place] [address] PATHOLOGIST HEDDLE MACHINE OPERATOR ANABELLE SCHAFER M.D.[facility] Physician GroupComment on above: Performed By: #### GLULS #### Point of Care testing ,Urobilinogen Test strip (U) [Mass/Vol]Ordered By: Nat Gutierrez on 01-15-2024 Urobilinogen (U) [Mass/Vol]Urobilinogen [Mass/volume] in Urine by Test strip [facility] HospitalWBC Auto (Bld) [#/Vol]Ordered By: Nat Gutierrez on 59-76-0281ZYW (Bld) [#/Vol]Leukocytes [#/volume] in Blood by Automated count3.8-11.6FMercy HospitalX-ray reportOrdered By: Pardeep Montoya on 31-59-0721Acppu reportMERCY HEALTH TIFFIN [place] [address] XRay Report Signed Patient: Kelsey Graves MR#: [id number] : 1980 Acct:[id number] Age/Sex: 43 / F ADM Date: 4 Loc: ER Room: Type: [facility] ER Attending Dr: Copies to: Nat Gutierrez MD~ Ordering Provider: Nat Gutierrez MD Date of Service: 01/15/24 XR/XR chest 2V*: Seizure Plain film chest 2 view HISTORY: Seizure COMPARISON: 06/15/2023 FINDINGS: SUPPORT DEVICES: None POSTSURGICAL CHANGES: Sternotomy HEART: Within normal limits PULMONARY COLETTE: Within normal limits MEDIASTINUM: Unremarkable LUNGS AND PLEURA: Minor parenchymal densities in the lung bases. Atelectasis/pneumonitis. BONY STRUCTURES: Intact ADDITIONAL FINDINGS None XR/XR chest 2V* IMPRESSION: Minor basilar parenchymal densities. Atelectasis versus pneumonitis. Impression dictated by: Pardeep Montoya M.D.01/15/2024 9:11 AM Dictation Location: [place] [address] Transcribed By: [facility] 01/15/24 0911 Dictated By: Pardeep Montoya DO 01/15/24909 Signed By: 01/15/24 0911 Flower HospitalXR chest 2V*on 13-27-1318CE chest 2V*[facility] Main [place] [address] [place] [address] XRay Report Signed Patient: Kelsey Graves MR#: [id number] : 1980 Acct:[id number] Age/Sex: 43 / F ADM Date: 01/15/24 Loc: ER Room: Type: [facility] ER Attending Dr: Copies to: Nat Gutierrez MD Ordering Provider: Nat Gutierrez MD Date of Service: 01/15/24 XR/XR chest 2V*: Seizure Plain film chest 2 view HISTORY: Seizure COMPARISON: 06/15/2023 FINDINGS: SUPPORT DEVICES: None POSTSURGICAL CHANGES: Sternotomy HEART: Within normal limits PULMONARY COLETTE: Within normal limits MEDIASTINUM: Unremarkable LUNGS AND PLEURA: Minor parenchymal densities in the lung bases. Atelectasis/pneumonitis. BONY STRUCTURES: Intact ADDITIONAL FINDINGS None XR/XR chest 2V* IMPRESSION: Minor basilar parenchymal densities. Atelectasis versus pneumonitis. Impression dictated by: Pardeep Montoya M.D.01/15/2024 9:11 AM Dictation Location: [place] [address] Transcribed By: [facility] 01/15/[address] Dictated By: Pardeep Montoya DO 01/15/24909 Signed By: 01/15/24 0911[facility] Physician GrouppH Test strip (U)Ordered By: Nat Gutierrez on 35-18-8683gB (U)pH of Urine by Test strip5.0-9.0Flower HospitalHbA1c (Bld) [Mass fraction]on 99-01-9364Nasxqhgyczfxtp and review of laboratory resultsNormalPhelps Health HealthcareLaboratory - Hematology and Cell countson 34-11-1089ZrJ7j (Bld) [Mass fraction]5.7 %NOMS HealthcareAppearance of UrineOrdered By: Delgado Valdez on 46-59-0660Ohatysftri (U)Urine appearanceCleFisher-Titus Medical CenterBacteria [Presence] in Urine by AutomatedOrdered By: Delgado Valdez on 56-11-7692Bmyabkrz Auto Ql (U)Rare [HPF]None [facility] HospitalBacteria Auto Ql (U)Bacteria [Presence] in Urine by AutomatedNone [facility] Bilirubin Test strip Ql (U)Ordered By: Delgado Valdez on 35-36-1577Fqegyiqjb Ql (U)NegativeNegOhioHealth Doctors HospitalBilirubin Ql (U) Bilirubin.total [Presence] in Urine by Test stripNegOhioHealth Doctors HospitalColor Auto (U)Ordered By: Delgado Valdez on 99-74-4982Bypur (U)Color of Urine by AutoYellowFlower HospitalColor of Urine by Auto Ordered By: Delgado Valdez on 93-54-1766Lpack (U)Light-yellowNormalYThe MetroHealth SystemComment on above:Order Comment: Name Collection Type:: Clean-Voided MidstreamPerformed By: #### HS TROP #### [facility] [address] [place] [address] USADipstick and Microscopicon 74-88-0804Amikdgwx,UrineRare NormalNone [facility] Physician GroupComment on above:Order Comment: Name Collection Type:: Clean-Voided MidstreamPerformed By: #### HS TROP #### [facility] [address] [place] [address] USABilirubin,UrineNegativeNormalNegativeNch Healthcare System - North Naples Physician GroupComment on above:Order Comment: Name Collection Type:: Clean- Voided MidstreamPerformed By: #### HS TROP #### [facility] [address] [place] [address] USAGlucose Ql (U)NormalNormalNormalThe [facility] Physician GroupComment on above:Order Comment: Name Collection Type:: Clean-Voided MidstreamPerformed By: #### HS TROP #### [facility] [address] [place] [address] USAHyaline Casts,UrineNoneNormal0-8The [facility] Physician GroupComment on above:Order Comment: Name Collection Type:: Clean-Voided MidstreamResult Comment: PERFORMED BY: [place] [address] PATHOLOGIST HEDDLE MACHINE OPERATOR CYNTHIA MURILLO M.D.Performed By: #### HS TROP #### [place] [address] USANitrite,UrineNegativeNormalNegativeNch Healthcare System [facility] Physician GroupComment on above:Order Comment: Name Collection Type:: Clean-Voided MidstreamPerformed By: #### HS TROP #### [place] [address] USAOccult Blood,UrineNegativeNormalNegativeThe [facility] Physician GroupComment on above:Order Comment: Name Collection Type:: Clean- Voided MidstreamResult Comment: PERFORMED BY: [place] [address] PATHOLOGIST HEDDLE MACHINE OPERATOR CYNTHIA MURILLO M.D.Performed By: #### HS TROP #### [place] [address] USAProtein,UrineNegativeNormalNegativeNch Healthcare System [facility] [place] Physician GroupComment on above:Order Comment: Name Collection Type:: Clean-Voided MidstreamPerformed By: #### HS TROP #### [place] [address] USARBC,Iycxb8-7Wrnpyl0-5Czr [facility] Physician GroupComment on above:Order Comment: Name Collection Type:: Clean-Voided MidstreamPerformed By: #### HS TROP #### [place] [address] USASpecificy Raymond,Urine1.499Qviway7.001-1.030The [facility] Physician GroupComment on above:Order Comment: Name Collection Type:: Clean- Voided MidstreamPerformed By: #### HS TROP #### [place] [address] USASquamous Epithelial Cell,Wihxg3-6Vsqawg6-1Ssy [place] Physician GroupComment on above:Order Comment: Name Collection Type:: Clean- Voided MidstreamPerformed By: #### HS TROP #### [address] [place] [address] USAUrobilinogen,UrineNormalNormalNormalThe [facility] Physician GroupComment on above:Order Comment: Name Collection Type:: Clean- Voided MidstreamPerformed By: #### HS TROP #### [facility] [address] [place] [address] USAWBC,Xfpem0-0Krqh4-5Bra [facility] Physician GroupComment on above:Order Comment: Name Collection Type:: Clean-Voided MidstreamPerformed By: #### HS TROP #### [facility] [address] [place] [address] USAEpithelial cells.squamous [#/area] in Urine sediment by Automated countOrdered By: Delgado Valdez on 47-36-4557Jctbtxgfqj cells.squamous Auto (Urine sed) [#/Area]1-2 [HPF]0-2FMercy HospitalEpithelial cells.squamous Auto (Urine sed) [#/Area]Epithelial cells.squamous [#/area] in Urine sediment by Automated count0-2FMercy Hospital Erythrocytes [#/area] in Urine sediment by Automated countOrdered By: Delgado Valdez on 78-16-7984XPK Auto (Urine sed) [#/Area]1-2 [HPF]0-4FMercy HospitalRBC Auto (Urine sed) [#/Area]Erythrocytes [#/area] in Urine sediment by Automated count0-4FMercy HospitalGlucose [Mass/volume] in Urine by Test stripOrdered By: Delgado Valdez on 11-04-2023 Glucose Test strip (U) [Mass/Vol]Normal mg/dLNoSamaritan HospitalGlucose Test strip (U) [Mass/Vol]Glucose [Mass/volume] in Urine by Test stripNoSamaritan HospitalHemoglobin Test strip Ql (U)Ordered By: Delgado Valdez on 18-04-8694Xmrmbexrek Ql (U)NegativeNegOhioHealth Doctors HospitalHemoglobin Ql (U)Hemoglobin [Presence] in Urine by Test stripNegOhioHealth Doctors HospitalHyaline casts [#/area] in Urine sediment by Automated countOrdered By: Delgado Valdez on 71-45-7605Teatslx casts Auto (Urine sed) [#/Area]None [LPF]0-8Flower HospitalHyaline casts Auto (Urine sed) [#/Area]Hyaline casts [#/area] in Urine sediment by Automated count0-8Flower HospitalKetones Test strip Ql (U) Ordered By: Delgado Valdez on 60-24-3246Khjawge Ql (U)Ketones [Presence] in Urine by Test stripNegOhioHealth Doctors HospitalKetones [Presence] in Urine by Test stripOrdered By: Delgado Valdez on 77-10-7880Gavlbva Ql (U)Negative NormalNegOhioHealth Doctors HospitalComment on above:Order Comment: Name Collection Type:: Clean-Voided MidstreamPerformed By: #### HS TROP #### [facility] [address] [place] [address] USALeukocyte esterase [Presence] in Urine by Test strip Ordered By: Delgado Valdez on 74-81-8768Yewmmibud esterase Test strip Ql (U)1+High NegativeFlower HospitalComment on above:Order Comment: Name Collection Type:: Clean-Voided MidstreamPerformed By: #### HS TROP #### [facility] [address] [place], [place] [id number] USALeukocyte esterase Test strip Ql (U)Leukocyte esterase [Presence] in Urine by Test stripHighNegOhioHealth Doctors Hospital Leukocytes [#/area] in Urine sediment by Automated countOrdered By: Delgado Valdez on 74-95-6499JBT Auto (Urine sed) [#/Area]5-9 [HPF]High0-4FMercy HospitalWBC Auto (Urine sed) [#/Area]Leukocytes [#/area] in Urine sediment by Automated countHigh04FMercy HospitalNitrite Test strip Ql (U)Ordered By: Delgado Valdez on 15-88-8821Bbojqzg Ql (U)NegativeNegative Flower HospitalNitrite Ql (U)Nitrite [Presence] in Urine by Test stripNegOhioHealth Doctors HospitalProtein Test strip (U) [Mass/Vol]Ordered By: Delgado Valdez on 29-24-5598Dsfasem (U) [Mass/Vol]Negative NegativeFlower HospitalProtein (U) [Mass/Vol]Protein [Mass/volume] in Urine by Test stripNegativeFlower Hospital Specific gravity Test strip (U) [Rel density]Ordered By: Delgado Valdez on 90-19-7731Adekyveh gravity (U) [Rel density]1.0221.001-1.030Fisher-Titus Medical Centerpecific gravity (U) [Rel density]Specific gravity of Urine by Test strip1.001-1.030Flower HospitalUrinalysis complete panel (U)on 87-62-3229Huxwyxcqbp (U)ClearClearNOMS HealthcareBILIRUBIN,URINENegative NegativeNOMS HealthcareColor (U)Light-YellowYellowNOMS HealthcareGlucose Ql (U) NormalNormalNOMS HealthcareInterpretation and review of laboratory results AbnormalNOMS HealthcareKetones Ql (U)NegativeNegativeNONM HealthcareLeukocyte esterase Test strip Ql (U)1+HighNegativeNOMS HealthcareNITRITE,URINENegative NegativeNOMS HealthcareOCCULT BLOOD,URINENegativeNegativeNOMS HealthcarepH (U) 6.0 [pH]5.0 - 9.0NOMS HealthcarePROTEIN,URINENegativeNegativeNOMS Healthcare SPECIFICY GRAVITY,URINE1.0221.001 - 1.030NOMS HealthcareUROBILINOGEN,URINENormal NormalNOMS HealthcareName Collection Type:: Clean-Voided MidstreamMercy HospitalUrine Cultureon 74-31-6933Iieabzaj identified Cx Nom (U)30,000 colonies/ml mixed bacterial skin contaminants 2 Days PERFORMED BY: [place] [address] PATHOLOGIST HEDDLE MACHINE OPERATOR CYNTHIA MURILLO M.D.NormalThe [facility] Physician GroupComment on above:Performed By: #### HS TROP #### [place] [address] USAUrine appearanceOrdered By: Delgado Valdez on 11-04-2023 Appearance (U)ClearNormalClearFlower HospitalComment on above: Order Comment: Name Collection Type:: Clean-Voided MidstreamPerformed By: #### HS TROP #### [facility] [address] [place] [address] USAUrine cultureOrdered By: Delgado Valdez on 11-04-2023 Bacteria identified Cx Nom (U)Urine cultureFlower Hospital Urobilinogen Test strip (U) [Mass/Vol]Ordered By: Delgado Valdze on 11-04-2023 Urobilinogen (U) [Mass/Vol]Normal mg/dLNormalFlower Hospital Urobilinogen (U) [Mass/Vol]Urobilinogen [Mass/volume] in Urine by Test strip NormalFlower HospitalpH Test strip (U)Ordered By: Delgado Valdez on 39-10-9250oC (U)pH of Urine by Test strip5.0-9.0Flower HospitalpH of Urine by Test stripOrdered By: Delgado Valdez on 07-35-6287xC (U)6.0 [pH]Normal5.0-9.0Flower HospitalComment on above:Order Comment: Name Collection Type:: Clean-Voided MidstreamPerformed By: #### HS TROP #### [place] [id number] USAGlucose mean value [Mass/volume] in Blood Estimated from glycated hemoglobinOrdered By: Delgado Valdez on 16-11-9545Lvhuhsi glucose Estimated from glycated hemoglobin (Bld) [Mass/Vol]177 mg/dLFlower HospitalHemoglobin A1c percentageOrdered By: Delgado Valdez on 08-18-2023 HbA1c (Bld) [Mass fraction]7.8 %High4.3-5.6FMercy Hospital Comment on above:Increased risk for diabetes: 5.7 - 6.4diabetes: >6.4glycemic control for adults with diabetes: <7.0Alanine aminotransferase [Enzymatic activity/volume] in Serum or PlasmaOrdered By: Sami Cervantes on 22-98-9878XNQ [Catalytic activity/Vol]41 U/L7-52Flower HospitalAlbumin [Mass/volume] in Serum or Plasma by Bromocresol green (BCG) dye binding metho Ordered By: Sami Cervantes on 63-15-3048Umhtmmz BCG dye [Mass/Vol]3.9 g/dL3.5-5.7 Flower HospitalAlkaline phosphatase [Enzymatic activity/volume] in Serum or PlasmaOrdered By: Sami Cervantes on 75-93-8705PVH [Catalytic activity/Vol]64 U/A08-975UkhrkndgyFlower HospitalAspartate aminotransferase [Enzymatic activity/volume] in Serum or PlasmaOrdered By: Sami Cervantes on 89-05-6460NHH [Catalytic activity/Vol]24 U/U47-70FnqgbttkeFlower HospitalBasophils Auto (Bld) [#/Vol]Ordered By: Sami Cervantes on 51-89-7724Ebcgbgicd (Bld) [#/Vol]0.1 10*3/uL0.0-0.2FMercy HospitalBasophils/100 WBC Auto (Bld)Ordered By: Sami Cervantes on 07-26-2023 Basophils/100 WBC (Bld)1.3 %.Flower HospitalBilirubin.total [Mass/volume] in Serum or PlasmaOrdered By: Sami Cervantes on 60-23-7594Itvemavni [Mass/Vol]0.3 mg/dL0.3-1.0Flower HospitalCalcium [Mass/volume] in Serum or PlasmaOrdered By: Sami Cervantes 80-16-0394Sqzdduq [Mass/Vol]9.1 mg/dL8.6-10.3FMercy HospitalCarbon dioxide, total [Moles/volume] in Serum or PlasmaOrdered By: Sami Cervantes on 15-77-9906CS1 [Moles/Vol]28.9 mmol/L21.0-31.0Flower HospitalChloride [Moles/volume] in Serum or PlasmaOrdered By: Sami Cervantes 58-77-1820Bkfshvve [Moles/Vol]103 mmol/I95-289AzuuqnyuwFlower HospitalCreatinine [Mass/volume] in Serum or PlasmaOrdered By: Sami Cervantes on 63-18-7363Tahrwxmwql [Mass/Vol]0.70 mg/dL0.60-1.20Flower HospitalEosinophils Auto (Bld) [#/Vol]Ordered By: Sami Cervantes on 31-34-5044Qiihbuadnlx (Bld) [#/Vol]0.1 10*3/uL0.0-0.45Flower HospitalEosinophils/100 WBC Auto (Bld) Ordered By: Sami Cervantes on 33-02-9617Lrtsbsvcrjm/100 WBC (Bld)1.1 %.Flower HospitalErythrocyte distribution width Auto (RBC) [Ratio]Ordered By: Sami Cervantes on 79-57-2238Bfgfttlgily distribution width (RBC) [Ratio]17.6 % High11.9-15.3FMercy HospitalGlobulin Calc (S) [Mass/Vol] Ordered By: Sami Cervantes on 82-88-5310Acqisdzt (S) [Mass/Vol]3.7 g/dLFlower HospitalGlucose [Mass/volume] in Serum or PlasmaOrdered By: Sami Cervantes on 40-97-6785Udqxcgc [Mass/Vol]149 mg/fIFmpe78-237ZeommcmblFlower HospitalComment on above:ADA recommended reference rangeRandom Glucose Reference Range is dependent on time and content of last meal. Glucose of more than 200 mg/dL in a nonstressed, ambulatory subject supports the diagnosisof Diabetes Mellitus.Hematocrit Auto (Bld) [Volume fraction]Ordered By: Sami Cervantes on 99-27-2831Uaddbbbbdp (Bld) [Volume fraction]39.5 %34.0-46.4 Flower HospitalHemoglobin [Mass/volume] in BloodOrdered By: Smai Cervantes on 88-98-4299Lypqkkseka (Bld) [Mass/Vol]12.9 g/dL11.8-15.4FMercy HospitalLeukocytes [#/volume] corrected for nucleated erythrocytes in Blood by Automated counOrdered By: Sami Cervantes on 71-41-3637KGU corrected for nucl RBC Auto (Bld) [#/Vol]8.8 10*3/uL3.8-11.6FMercy HospitalLipase [Enzymatic activity/volume] in Serum or PlasmaOrdered By: Sami Cervantes on 59-43-6033Hhfekc [Catalytic activity/Vol]20.0 U/L11.0-82.0 Flower HospitalLymphocytes Auto (Bld) [#/Vol]Ordered By: Sami Cervantes on 59-14-0944Uxwkbywndwk (Bld) [#/Vol]1.2 10*3/uL1.00-4.8Flower HospitalLymphocytes/100 WBC Auto (Bld)Ordered By: Sami Cervantes on 11-59-3948Zyldwstohoh/100 WBC (Bld)13.7 %.Flower HospitalMCH Auto (RBC) [Entitic mass]Ordered By: Sami Cervantes on 62-35-8511BTN (RBC) [Entitic mass]30.2 pg24.7-34.3FMercy HospitalMCHC Auto (RBC) [Mass/Vol]Ordered By: Sami Cervantes on 31-48-5076MNYE (RBC) [Mass/Vol]32.6 g/dL 32.0-35.0Flower HospitalMCV Auto (RBC) [Entitic vol]Ordered By: Sami Cervantes on 65-36-1163LAU (RBC) [Entitic vol]92.8 qK83-015SayspygfyFlower HospitalMonocyte distribution width [Entitic volume] in Blood by AutomatedOrdered By: Sami Cervantes on 95-96-2943Wrrfwrph distribution width Auto (Bld) [Entitic vol]22.96 %High0.00-20.00Flower HospitalComment on above:For adults in ED, MDW > 20.0 may be associated with a higher risk of sepsis during the first 12 hrs of hospital admissionMonocytes Auto (Bld) [#/Vol] Ordered By: Sami Cervantes on 99-39-6745Desbzfnla (Bld) [#/Vol]0.6 10*3/uL0.0-0.8 Flower HospitalMonocytes/100 WBC Auto (Bld)Ordered By: Sami Cervantes on 77-61-6583Jatqtinir/100 WBC (Bld)7.2 %.Flower HospitalNeutrophils Auto (Bld) [#/Vol]Ordered By: Sami Cervantes on 07-26-2023 Neutrophils (Bld) [#/Vol]6.8 10*3/uL1.8-7.7FMercy Hospital Neutrophils/100 WBC Auto (Bld)Ordered By: Sami Cervantes on 07-26-2023 Neutrophils/100 WBC (Bld)76.7 %.Flower HospitalNo Panel InformationOrdered By: Sami Cervantes on 20-85-2197Amwtjzctm GFR (CKD-EPI)> 60.0 mL/MinFlower HospitalPharmacy Creatinine Clearance (Rlsj261.17 Flower HospitalNucleated erythrocytes [Presence] in Blood by Automated countOrdered By: Sami Cervantes on 76-68-1905Ygzypiwbo RBC Auto Ql (Bld) 0.0 /100{WBC}0-0.5FMercy HospitalPlatelet mean volume Auto (Bld) [Entitic vol]Ordered By: Sami Cervantes on 35-99-4201Pfmxmzno mean volume (Bld) [Entitic vol]8.6 fL6.3-10.7FMercy HospitalPlatelets Auto (Bld) [#/Vol]Ordered By: Sami Cervantes on 22-75-8601Pfjgitphn (Bld) [#/Vol]222 10*3/lX927-146SqlvlexhuFlower HospitalPotassium [Moles/volume] in Serum or PlasmaOrdered By: Sami Cervantes on 85-51-0131Qtwqzvyip [Moles/Vol]4.3 mmol/L 3.5-5.1FMercy HospitalProtein [Mass/volume] in Serum or Plasma Ordered By: Sami Cervantes on 87-80-3053Fczgqyc [Mass/Vol]7.6 g/dL6.4-8.9Flower HospitalRBC Auto (Bld) [#/Vol]Ordered By: Sami Cervantes on 89-70-2283HZX (Bld) [#/Vol]4.26 10*6/uL3.60-5.00[facility]-Titus Medical Centererum or plasma albumin/globulin mass ratioOrdered By: Sami Cervantes on 24-87-2879Lkvoeoa/Globulin [Mass ratio]1.1 {ratio}[facility] Medical Centererum or plasma anion gap determinationOrdered By: Sami Cervantes on 05-31-0071Wablf gap [Moles/Vol]9.4 mmol/L6.0-15.0[facility]-Titus Medical Centerodium [Moles/volume] in Serum or PlasmaOrdered By: Sami Cervantes on 61-41-5979Vgujod [Moles/Vol]137 mmol/J378-957YrpaqddgtFlower Hospital Urea nitrogen [Mass/volume] in Serum or PlasmaOrdered By: Sami Cervantes on 34-67-5830Qegq nitrogen [Mass/Vol]12 mg/dL7-25[facility] WBC Auto (Bld) [#/Vol]Ordered By: Sami Cervantes on 13-73-5708FDJ (Bld) [#/Vol]8.8 10*3/uL3.8-11.6FMercy HospitalAutomated erythrocytes count in urine sediment (number/area)Ordered By: Delgado Valdez on 18-18-0391SQG Auto (Urine sed) [#/Area]0-1 [HPF]0-4FMercy HospitalAutomated leukocytes count in urine sediment (number/area)Ordered By: Delgado Valdez on 87-68-6389MBH Auto (Urine sed) [#/Area]1-2 [HPF]0-4FMercy HospitalBilirubin Test strip Ql (U)Ordered By: Delgado Valdez on 33-13-8323Cussmzssb Ql (U)NegativeNegOhioHealth Doctors HospitalColor Auto (U)Ordered By: Delgado Valdez on 10-82-0416Kgwkx (U)YellowYellowFlower HospitalKetones Auto test strip (U) [Mass/Vol]Ordered By: Delgado Valdez on 41-62-6550Ouodfsc (U) [Mass/Vol]NegativeNegativeFlower HospitalLaboratory - UrinalysisOrdered By: Delgado Valdez on 34-94-6233Kxnyehu casts LM Ql (Urine sed)0-8 [LPF]0-8Flower HospitalNitrite Test strip Ql (U)Ordered By: Delgado Valdez on 22-31-0907Aasocvm Ql (U)NegativeNegative Flower HospitalProtein Auto test strip (U) [Mass/Vol]Ordered By: Delgado Valdez on 37-98-7731Ajwyvjz (U) [Mass/Vol]NegativeNegPomerene Hospitalpecific gravity Auto test strip (U) [Rel density]Ordered By: Delgado Valdez on 76-60-0101Gfnjsyet gravity (U) [Rel density]1.0051.001-1.030 [facility] Medical Centerquamous epithelial cells detection in urine sediment by light microscopyOrdered By: Delgado Valdez on 72-70-6881Qnsdtrdkct cells.squamous LM Ql (Urine sed)0-1 [HPF]0-2FMercy Hospital Urine bacteria detection by automated methodOrdered By: Delgado Valdez on 99-38-6498Ymzoigce Auto Ql (U)None seen [HPF]None SeenFlower HospitalUrine clarity by refractometry automatedOrdered By: Delgado Valdez on 80-68-1708Wgwzzny Refractometry automated (U)ClearClearFMercy HospitalUrine culture routineOrdered By: Delgado Valdez on 06-27-2023 Bacteria identified Cx Nom (U)2 DaysFlower HospitalUrine glucose measurement by automated test strip (mass/volume)Ordered By: Delgado Valdez on 53-69-0366Scubrdd Auto test strip (U) [Mass/Vol]Normal mg/dLNoal Flower HospitalUrine hemoglobin detection by automated test stripOrdered By: Delgado Valdez on 88-01-4211Ufttkbtcyi Auto test strip Ql (U) NegativeNegOhioHealth Doctors HospitalUrine leukocyte esterase detection by automated test stripOrdered By: Delgado Valdez on 56-44-8828Qoobzwjww esterase Auto test strip Ql (U)1+NegativeFlower Hospital Urobilinogen Auto test strip (U) [Mass/Vol]Ordered By: Delgado Valdez on 07-75-9746Qaivdxaibrbj (U) [Mass/Vol]Normal mg/dLNormProMedica Toledo HospitalpH Auto test strip (U)Ordered By: Delgado Valdez on 24-41-4542cF (U) 6.0 [pH]5.0-9.0Flower HospitalGlucose Glucometer (BldC) [Mass/Vol]Ordered By: Hugh Craft on 01-04-0973Jtlkqzb [Mass/Vol]400 mg/dL Flower HospitalComment on above:Random Glucose Reference Range is dependent on time and content of last meal. Glucose of more than 200 mg/dL in a nonstressed, ambulatory subject supports the diagnosis of Diabetes Mellitus.No Panel InformationOrdered By: Hugh Craft on 90-23-7284Dbjtvzp Glucose CommentGlu2: cleaned meterFlower HospitalAlanine aminotransferase [Enzymatic activity/volume] in Serum or PlasmaOrdered By: Hugh Craft on 08-84-5889SVZ [Catalytic activity/Vol]50 U/L7-52Flower HospitalAlbumin [Mass/volume] in Serum or Plasma by Bromocresol green (BCG) dye binding methoOrdered By: Hugh Craft on 89-19-9447Tqyhxah BCG dye [Mass/Vol]3.4 g/dL3.5-5.7FMercy HospitalAlkaline phosphatase [Enzymatic activity/volume] in Serum or PlasmaOrdered By: Hugh Craft on 20-55-9192PNK [Catalytic activity/Vol]68 U/X45-417BfqwfrykiFlower HospitalAspartate aminotransferase [Enzymatic activity/volume] in Serum or Plasma Ordered By: Hugh Craft on 36-17-0142ITC [Catalytic activity/Vol]19 U/L13-39 Flower HospitalBasophils Auto (Bld) [#/Vol]Ordered By: Constantino Burdick on 09-04-4250Lmdpypige (Bld) [#/Vol]0.1 10*3/uL0.0-0.2 Flower HospitalBasophils/100 WBC Auto (Bld)Ordered By: Constantino Burdick on 01-85-4312Dekhrfrbu/100 WBC (Bld)1.1 %.Flower HospitalBilirubin.direct [Mass/volume] in Serum or PlasmaOrdered By: Hugh Craft on 53-10-5300Peugjlrfo.direct [Mass/Vol]0.00 mg/dL0.03-0.18 Flower HospitalComment on above:If the DBIL is less than 0.1, IBIL is not able to becalculated.Bilirubin.total [Mass/volume] in Serum or PlasmaOrdered By: Hugh Craft on 29-94-0066Ahwizsklb [Mass/Vol]0.3 mg/dL 0.3-1.0Flower HospitalCalcium [Mass/volume] in Serum or Plasma Ordered By: Constantino Burdick on 43-31-0611Ivqzpzd [Mass/Vol]9.2 mg/dL 8.6-10.3FMercy HospitalCarbon dioxide, total [Moles/volume] in Serum or PlasmaOrdered By: Constantino Burdick on 91-26-1300XY8 [Moles/Vol] 31.1 mmol/L21.0-31.0Flower HospitalChloride [Moles/volume] in Serum or PlasmaOrdered By: Constantino Burdick on 54-99-0025Ywslzkuf [Moles/Vol]100 mmol/W72-230RqcuhankgFlower HospitalCreatinine [Mass/volume] in Serum or PlasmaOrdered By: Constantino Burdick on 06-17-2023 Creatinine [Mass/Vol]0.78 mg/dL0.60-1.20[facility] Eosinophils Auto (Bld) [#/Vol]Ordered By: Constantino Burdick on 06-17-2023 Eosinophils (Bld) [#/Vol]0.2 10*3/uL0.0-0.45[facility] Eosinophils/100 WBC Auto (Bld)Ordered By: Constantino Burdick on 06-17-2023 Eosinophils/100 WBC (Bld)2.1 %.Flower HospitalErythrocyte distribution width Auto (RBC) [Ratio]Ordered By: Constantino Burdick on 51-93-6880Xhdkjdcqmds distribution width (RBC) [Ratio]17.7 %11.9-15.3FMercy HospitalGlobulin Calc (S) [Mass/Vol]Ordered By: Hugh Craft on 60-04-9788Kpxblspg (S) [Mass/Vol]4.1 g/dLFlower Hospital Glucose [Mass/volume] in Serum or PlasmaOrdered By: Constantino Burdick on 75-91-0691Xfsppje [Mass/Vol]200 mg/pA60-033IvbnosewlFlower Hospital Comment on above:ADA recommended reference rangeRandom Glucose Reference Range is dependent on time and content of last meal. Glucose of more than 200 mg/dL in a nonstressed, ambulatory subject supports the diagnosisof Diabetes Mellitus. Hematocrit Auto (Bld) [Volume fraction]Ordered By: Constantino Burdick on 85-21-6506Nzujiisyjg (Bld) [Volume fraction]39.5 %34.0-46.4FMercy HospitalHemoglobin [Mass/volume] in BloodOrdered By: Constantino Burdick on 51-51-5930Cggeosigkm (Bld) [Mass/Vol]12.7 g/dL11.8-15.4FMercy HospitalLeukocytes [#/volume] corrected for nucleated erythrocytes in Blood by Automated counOrdered By: Constantino Burdick on 87-15-1367JYB corrected for nucl RBC Auto (Bld) [#/Vol]9.3 10*3/uL3.8-11.6FMercy HospitalLymphocytes Auto (Bld) [#/Vol]Ordered By: Constantino Burdick on 84-34-3185Mhxfmyfqoxg (Bld) [#/Vol]1.3 10*3/uL1.00-4.8Flower HospitalLymphocytes/100 WBC Auto (Bld)Ordered By: Constantino Burdick on 29-91-0052Uaegwvazwna/100 WBC (Bld)13.5 %.Flower HospitalMCH Auto (RBC) [Entitic mass]Ordered By: Constantino Burdick on 71-80-5295SCE (RBC) [Entitic mass]30.6 pg24.7-34.3FMercy HospitalMCHC Auto (RBC) [Mass/Vol]Ordered By: Constantino Burdick on 31-33-1009ZUNC (RBC) [Mass/Vol] 32.2 g/dL32.0-35.0Flower HospitalMCV Auto (RBC) [Entitic vol] Ordered By: Constantino Burdick on 39-00-4204DWS (RBC) [Entitic vol]94.9 fL 80-100Flower HospitalMonocytes Auto (Bld) [#/Vol]Ordered By: Constantino Burdick on 86-22-3049Omnthcbsv (Bld) [#/Vol]0.9 10*3/uL0.0-0.8 F[facility] HospitalMonocytes/100 WBC Auto (Bld)Ordered By: Constantino Burdick on 05-07-1252Jjgdqkwke/100 WBC (Bld)10.1 %.Flower HospitalNeutrophils Auto (Bld) [#/Vol]Ordered By: Constantino Burdick on 72-53-9177Yrzodwfmflg (Bld) [#/Vol]6.8 10*3/uL1.8-7.7FMercy HospitalNeutrophils/100 WBC Auto (Bld)Ordered By: Constantino Burdick on 09-86-1094Cgdbsskdniz/100 WBC (Bld)73.2 %.[facility] HospitalNo Panel InformationOrdered By: Constantino Burdick on 06-17-2023 Estimated GFR (CKD-EPI)> 60.0 mL/MinFlower HospitalPharmacy Creatinine Clearance (Chem90.65[facility] HospitalNucleated erythrocytes [Presence] in Blood by Automated countOrdered By: Constantino Burdick on 48-09-8156Jvsctyidn RBC Auto Ql (Bld)0.1 /100{WBC}0-0.5FMercy HospitalPlatelet mean volume Auto (Bld) [Entitic vol]Ordered By: Constantino Burdick on 26-49-5120Xotrhqlq mean volume (Bld) [Entitic vol]9.9 fL 6.3-10.7FMercy HospitalPlatelets Auto (Bld) [#/Vol]Ordered By: Constantino Burdick on 69-51-1965Steksnpun (Bld) [#/Vol]265 10*3/gT057-867 [facility] HospitalPotassium [Moles/volume] in Serum or Plasma Ordered By: Constantino Burdick on 10-19-2465Fcltlkjqs [Moles/Vol]3.9 mmol/L 3.5-5.1FMercy HospitalProtein [Mass/volume] in Serum or Plasma Ordered By: Hugh Craft on 30-15-6437Btyqagp [Mass/Vol]7.5 g/dL6.4-8.9 [facility] HospitalRBC Auto (Bld) [#/Vol]Ordered By: Constantino Burdick on 49-89-5258PXU (Bld) [#/Vol]4.16 10*6/uL3.60-5.00[facility] Medical Centererum or plasma albumin/globulin mass ratioOrdered By: Hugh Craft on 20-05-4398Ayzmmar/Globulin [Mass ratio]0.8 {ratio}[facility] Medical Centererum or plasma anion gap determinationOrdered By: Constantino Burdick on 25-00-6959Juzja gap [Moles/Vol]10.8 mmol/L6.0-15.0[facility] Medical Centererum or plasma non-glucuronidated bilirubin measurement (mass/volume)Ordered By: Hugh Craft on 84-19-7846Gqyouvxqx.indirect [Mass/Vol]0.3 mg/dLFisher-Titus Medical Centerodium [Moles/volume] in Serum or PlasmaOrdered By: Constantino Burdick on 94-07-1582Gpkdke [Moles/Vol] 138 mmol/B641-415LxvtvnlnoFlower HospitalUrea nitrogen [Mass/volume] in Serum or PlasmaOrdered By: Constantino Burdick on 62-24-6156Abby nitrogen [Mass/Vol]20 mg/dL7-25[facility] HospitalWBC Auto (Bld) [#/Vol] Ordered By: Constantino Burdick on 90-30-9340IYP (Bld) [#/Vol]9.3 10*3/uL 3.8-11.6FMercy HospitalLaboratory - Chemistry and Chemistry - challengeOrdered By: Constantino Burdick on 95-52-5316PS0 [Moles/Vol]36.9 mmol/L23.0-27.0[facility] HospitalHCO3 (Bld) [Moles/Vol]35.0 mmol/L23.0-29.0[facility] HospitalNo Panel InformationOrdered By: Constantino Burdick on 27-08-7091Sxswfrvc Blood Base Excess7.6 mmol/L-3.0-3.0 [facility] HospitalArterial Blood Oxygen Content8.3 mmol/L6.6-9.7 [facility] HospitalArterial Blood Oxygen Yvaetwjgwi03.9 % 95.0-100.0[facility] HospitalArterial Blood Partial Pressure CO2 61.2 mm[Hg]35.0-45.0[facility] HospitalArterial Blood Partial Pressure O270.9 mm[Hg]80.0-100.0[facility] HospitalArterial Blood pH7.387.35-7.45[facility] HospitalBlood Gas Critical ValueSee commentFlower HospitalComment on above:Critical Value called on: 06/15/2023 at 13:53Blood Gas Sample SiteRight radialFlower HospitalFiO230% %[facility] HospitalNo Panel Information Ordered By: Constantino Burdick on 03-27-7772Kmyxj Gas Liter Flow40 L/min [facility] HospitalOxygen Delivery DeviceHigh flowFlower HospitalNo Panel InformationOrdered By: Constantino Burdick on 46-89-7429Cyheg Gas PEEP5 hvE6QIujgceczoFlower HospitalBlood Gas Set Respiration Msbj04TtldjuivnFlower HospitalBilirubin Test strip Ql (U) Ordered By: Chivo Basilio on 47-80-6868Iwbbzxbxh Ql (U)NegativeNegative [facility] HospitalC reactive protein [Mass/volume] in Serum or PlasmaOrdered By: Chivo Basilio on 25-97-7834XBJ [Mass/Vol]4.8 mg/dL0.0-0.5 [facility] HospitalColor Auto (U)Ordered By: Chivo Basilio on 69-80-0256Ljnbt (U)YellowYellowFlower HospitalContinuous positive airway pressure (CPAP)Ordered By: Constantino Burdick on 06-12-2023 Continuous positive airway pressure Respiratory kiriis89.0 mqI2DMftgyxtjuFlower HospitalGlucose mean value [Mass/volume] in Blood Estimated from glycated hemoglobinOrdered By: Gloria Barrera on 14-88-8322Tvoyumz glucose Estimated from glycated hemoglobin (Bld) [Mass/Vol]157 mg/dLFlower HospitalHemoglobin A1c percentageOrdered By: Gloria Barrera on 06-12-2023 HbA1c (Bld) [Mass fraction]7.1 %4.3-5.6FMercy HospitalComment on above:Increased risk for diabetes: 5.7 - 6.4diabetes: >6.4glycemic control for adults with diabetes: <7.0Ketones Auto test strip (U) [Mass/Vol]Ordered By: Chivo Basilio on 77-22-4992Oopltpg (U) [Mass/Vol]NegativeNegative [facility] HospitalNatriuretic peptide B [Mass/Vol]Ordered By: Chivo Basilio on 14-88-8908Lmqaydqcylf peptide B (Bld) [Mass/Vol]53.0 pg/mL 5-100F[facility] HospitalNitrite Test strip Ql (U)Ordered By: Chivo Basilio on 57-95-3456Axvazix Ql (U)NegativeNegOhioHealth Doctors HospitalProtein Auto test strip (U) [Mass/Vol]Ordered By: Chivo Basilio on 96-75-8086Yhmvvjo (U) [Mass/Vol]NegativeNegPomerene Hospitalerum procalcitonin measurementOrdered By: Chivo Basilio on 89-28-6718Jrrclmedmykph [Mass/Vol]0.09 ng/mL0.00-0.08[facility] HospitalComment on above:A procalcitonin (PCT) level above 2.0 ng/mL on the firstday of ICU admission is associated with a high risk forprogression to severe sepsis and/or septic shock.A PCT level below 0.5 ng/mL on the first day of ICUadmission is associated with a low risk for progressionto severe sepsis and/or septic shock.Note: Concentrations <0.5 ng/mL do not exclude aninfection, on account of localized infections (withoutsystemic signs) which can be associated with such lowconcentrations, or a systemic infection in its initialstages (<6 hours).Furthermore, increased procalcitonin can occur withoutinfection. PCT concentrations between 0.5 and 2.0 ng/mLshould be interpreted taking into account the patient'shistory. It is recommended to retest PCT within 6-24 hoursif any concentrations <2 ng/mL are obt ained.Performed at: [address] [id number] Director: Zeke Cowan MD, Phone: [phone] gravity Auto test strip (U) [Rel density]Ordered By: Chivo Basilio on 06-12-2023 Specific gravity (U) [Rel density]1.0131.001-1.030[facility] HospitalThyrotropin [Units/volume] in Serum or PlasmaOrdered By: Gloria Barrera on 50-36-1415CGK Qn1.88 m[IU]/L0.45-5.33[facility] HospitalTroponin I.cardiac [Mass/volume] in Serum or Plasma by Detection limit <= 0.01 ng/Ordered By: Gloria Barrera on 41-39-5344Zrotywdj I.cardiac DL <= 0.01 ng/mL [Mass/Vol]98.3 pg/mL0.0-15.0[facility] HospitalComment on above:Critical Result : Called to and read back by: ANJANA MONTGOMERY at: 06/12/2023 07:32:39 by:JUAN ANTONIOMUrine clarity by refractometry automatedOrdered By: Chivo Basilio on 06-12-2023 Clarity Refractometry automated (U)ClearCleFisher-Titus Medical Center Urine glucose measurement by automated test strip (mass/volume)Ordered By: Chivo Basilio on 25-08-4610Llemheo Auto test strip (U) [Mass/Vol]Normal mg/dLNormalFlower HospitalUrine hemoglobin detection by automated test stripOrdered By: Chivo Basilio on 55-19-7157Yghjoiwbig Auto test strip Ql (U)NegativeNegativeFlower HospitalUrine leukocyte esterase detection by automated test stripOrdered By: Chivo Basilio on 47-33-1165Gzjqcxprv esterase Auto test strip Ql (U)Negative NegativeFlower HospitalUrobilinogen Auto test strip (U) [Mass/Vol]Ordered By: Chivo Fangpiedmont augusta summ[facility] campushowie on 27-37-9825Xxqcofntnhtf (U) [Mass/Vol] Normal mg/dLNormalFlower HospitalpH Auto test strip (U)Ordered By: Chivo [facility] Hospitalhowie on 11-18-4172fL (U)6.5 [pH]5.0-9.0F[facility] HospitalCHEMISTRYOrdered By: SYSTEM SYSTEM on 85-82-6320Cojmeibh434.10 pg/mLInvalid Interpretation Code10.10 - 27.10 pg/mLRemisol ChemComment on above: Result Comment: Critical Result Verified by Previous Result Critical Result I_TnIHS:166.1 Called to and read back by: BISMARK EDWARDS RN at: 06/11/2023 15:34:42 by:[id number] Data: The 95% CI (Confidence Interval) PPV (Positive Predictive Value) for myocardial infarction in females is 38 pg/mL, in males 51 pg/mL. The results should be used in conjunction withclinical conditions of myocardial infarction. (Access High Sensitivity Troponin I Instructions For Use, Verónica [place], September 2017)Albumin [Mass/Vol]3.8 g/dLNormal3.3 - 5.0 gm/dLRemisol Chem Albumin/Globulin [Mass ratio]1.0 {ratio}Low1.1 - 2.2Remisol ChemALP [Catalytic activity/Vol]70 [iU]/cIqxyqn72 - 98 Int._Unit/LRemisol ChemALT No additional P-5'-P [Catalytic activity/Vol]99 [iU]/dHigh6 - 46 Int._Unit/LRemisol ChemAnion gap [Moles/Vol]12 mmol/LNormal6 - 16 mEq/LRemisol ChemAST [Catalytic activity/Vol]56 [iU]/dHigh5 - 43 Int._Unit/LRemisol ChemBilirubin [Mass/Vol]0.5 mg/dLNormal0.0 - 1.1 mg/dLRemisol ChemCalcium [Mass/Vol]9.1 mg/dLNormal8.9 - 11.1 mg/dLRemisol ChemChloride [Moles/Vol]100 mmol/ETje812 - 111 mmol/LRemisol ChemCO2 [Moles/Vol]33 mmol/LHigh21 - 31 mmol/LRemisol ChemCreatinine [Mass/Vol] 0.8 mg/dLNormal0.5 - 1.3 mg/dLRemisol BjkzsYRY27 mL/min/1.73 l0Juhihc >=59mL/min/1.73 z3Blrkjoa ChemGlobulin (S) [Mass/Vol]3.8 g/dLNormal1.4 - 4.0 gm/dLRemisol ChemGlucose [Mass/Vol]119 mg/tOKednuh18 - 199 mg/dLRemisol Chem Lactic Acid Lvl0.7 mmol/LNormal0.5 - 2.2 mmol/LRemisol ChemPotassium [Moles/Vol] 4.6 mmol/LNormal3.5 - 5.3 mmol/LRemisol ChemProtein [Mass/Vol]7.6 g/dLNormal6.0 - 7.8 gm/dLRemisol ChemSodium [Moles/Vol]140 mmol/IEemwes736 - 145 mmol/LRemisol IpzmUdwuvker209.10 pg/mLInvalid Interpretation Code10.10 - 27.10 pg/mLRemisol ChemComment on above:Result Comment: Critical Result Verified by Repeat Analysis Critical Result I_TnIHS:138.1 Called to and read back by: KEVIN. EDWARDS at: 06/11/2023 12:57:09 by:[id number] Data: The 95% CI (Confidence Interval) PPV (Positive Predictive Value) for myocardial infarction in females is 38 pg/mL, in males 51 pg/mL. The results should be used in conjunction withclinical conditions of myocardial infarction. (Access High Sensitivity Troponin I Instructions For Use, Verónica [place], September 2017)Urea nitrogen [Mass/Vol]20 mg/dLNormal5 - 21 mg/dLRemisol ChemUrea nitrogen/Creatinine [Mass ratio]25 mg/jyYuto14 - 20Remisol ChemCHEMISTRYOrdered By: Cristine Baker on 93-61-6854Dpsdadxywcm peptide B (Bld) [Mass/Vol]99 pg/mL High5 - 80 pg/mLSOUTHWEST[facility] HemeManSSCOAGULATIONOrdered By: Reina Zhang on 87-14-1562iJWR Coag (PPP) [Time]26.3 hYpzmeo00.1 - 36.5 second(s)[facility] Auto Coag Comment on above:Interpretive Data: Parameter 15 days - 4 weeks 1 - 5 months 6 - 11 months 1 - 5 years 6 - 10 years 11 - 17 years PTT Mean: 35.4 (27.6-45.6) Mean: 33.5 (24.8-40.7) Mean: 32.4 (25.1-40.7) Mean: 31.6 (24.0-39.2) Mean: 31.6 (26.9-38.7) Mean: 31.0 (24.6-38.4) Pediatric Reference ranges were obtained from a study by Maximiliano Farias et al. prepared from 1437 samples obtained at 7 different centers using the same coagulation reagent and instrumentation as [facility]. Currently there are no coagulation studies available worldwide for children to 14 days, andno normal ranges. Heparin therapeutic range (represented by Anti-Factor Xa activity of 0.2 - 0.4 U/mL) corresponds to PTT of 56.6 - 109.0 sec.INR Coag (PPP) [Relative time]1.07 {INR}Invalid Interpretation CodeSOUTHWESTERN [facility] Auto CoagComment on above:Interpretive Data: INR results are specifically intended to assess patients stabilized on long-term Anticoagulation therapy suggested INR s Less Intensive Anticoagulation 2.0 3.0 Conventional Range 3.0 4.5PT Coag (PPP) [Time]12.0 sNormal9.4 - 12.5 second(s) [facility] Auto CoagComment on above:Interpretive Data: 15 days - 4 weeks 1 - 5 months 6 -11 months 1 5 years 6 10 years 11 -17 years Mean: 11.2 (9.5 12.6) Mean: 11.0 (9.7 12.8) Mean: 11.0 (9.8 13.0) Mean: 11.3 (9.9 13.4) Mean: 11.7 (10.0 14.6) Mean: 11.8 (10.0 - 14.1) Pediatric Reference ranges were obtained from a study by Maximiliano Farias et al. prepared from 1437 samples obtained at 7 different centers using the same coagulation reagent and instrumentation as [facility]. Currently there are no coagulation studies available worldwide for children to 14 days, andno normal ranges.FT Blood GasesOrdered By: Kath Ortiz on 4a/A Ratio Art 45.00 %Normal>=0.80%[facility] Resp Auto SSAaDO2 Art98.3 mm[Hg]High5.0 - 15.0 mmHgFTMC Resp Auto SSAllens TestPositive (06/11/23 11:46 AM)NormalFTMC Resp Auto SSBase Excess Arterial7.5 mmol/LNormal >=2.8mmol/LFTMC Resp Auto SScCa2+ Art4.93 mg/dLNormal4.40 - 5.30 mg/dLFTMC Resp Auto SScCl- Art98.0 mmol/NXnx410.0 - 111.0 mmol/LFTMC Resp Auto SScGlu Sho549 mg/qFBpgm42 - 99 mg/dLFTMC Resp Auto SScK+ Art4.5 mmol/LNormal3.5 - 5.3 mmol/L [facility] Resp Auto SScLac Art0.6 mmol/LNormal0.5 - 2.2 mmol/LFTMC Resp Auto SScNa+ Gdj203.0 mmol/DHkyqxj692.0 - 145.0 mmol/LFTMC Resp Auto SSDrawn byKath Ortiz Invalid Interpretation CodeFTMC Resp Auto SSFCOHb Art1.8 %Normal1.5 - 4.9 %[facility] Resp Auto SSComment on above:Interpretive Data: Reference range Nonsmoker <1.5% Smoker <5.0% Heavy Smoker <9.0%FIO2 BG36 1Invalid Interpretation CodeFTMC Resp Auto SSFMetHb Art0.1 %Normal0.0 - 1.9 %[facility] Resp Auto EGVM0Gy Art93.8 %Cioafk65.0 - 100.0 % [facility] Resp Auto SSHCO3 (Bld) [Moles/Vol]31.2 mmol/LHigh22.0 - 26.0 mmol/LFTMC Resp Auto SSHemoglobin (Bld) [Mass/Vol]12.9 g/oEIvwyvy34.0 - 16.0 gm/dLFT Resp Auto SSP CO2 Zwtmagxv70.2 mm[Hg]High35.0 - 45.0 mmHgSOU[facility]WE[facility] Resp Auto SSP O2 Ahjjkmep39.4 mm[Hg]Fxbykv31.0 - 100.0 mmHgFTMC Resp Auto SSpH (Bld)7.359 [pH] Normal7.350 - 7.450FT Resp Auto SSSample SiteL Radial (06/11/23 11:46 AM)NormalSOUTHWESTERN [facility] Resp Auto SSSample TypeArterial Draw (06/11/23 11:46 AM)NormalSOUTHWESTERN [facility] Resp Auto SSHEMATOLOGYOrdered By: SYSTEM SYSTEM on 52-42-9277Xbfuvpwev/100 WBC (Bld)0.9 %Normal0.0 - 2.0 %Remisol Heme Basophils/Leukocytes Auto (Bld) [Pure # fraction]0.1 E9/LNormal0.0 - 0.2 E9/L Remisol HemeEosinophils (Bld) [#/Vol]0.0 E9/LNormal0.0 - 0.5 E9/LRemisol Heme Eosinophils/100 WBC (Bld)0.3 %Normal0.0 - 8.0 %Remisol HemeErythrocyte distribution width (RBC) [Ratio]17.9 %High10.9 - 14.2 %Remisol HemeHematocrit (Bld) [Volume fraction]37.6 %Sazcjy64.0 - 46.0 %Remisol HemeHemoglobin (Bld) [Mass/Vol]11.9 g/dLLow12.0 - 16.0 gm/dLRemisol HemeLymphocytes (Bld) [#/Vol]1.0 E9/LNormal1.0 - 4.0 E9/LRemisol HemeLymphocytes/100 WBC (Bld)9.5 %Low14.0 - 50.0 %Remisol HemeMCH (RBC) [Entitic mass]30.3 mjJzbaxe64.0 - 34.0 pgRemisol Heme MCHC (RBC) [Mass/Vol]31.5 g/sCAzokui55.4 - 36.0 gm/dLRemisol HemeMCV (RBC) [Entitic vol]96.0 vFGhxrtx14.0 - 100.0 fLRemisol HemeMonocytes (Bld) [#/Vol]0.6 E9/LNormal0.2 - 1.0 E9/LRemisol HemeMonocytes/100 WBC (Bld)5.8 %Normal4.0 - 14.0 %Remisol HemeNeutrophils (Bld) [#/Vol]8.7 E9/LHigh2.0 - 7.5 E9/LRemisol Heme Neutrophils/100 WBC (Bld)83.5 %High36.0 - 75.0 %Remisol ObljKmsdcxls121.0 E9/L Pnpzow338.0 - 500.0 E9/LRemisol HemePlatelet mean volume (Bld) [Entitic vol]9.1 fLNormal6.4 - 10.8 fLRemisol HemeRBC (Bld) [#/Vol]3.9 E12/LLow4.3 - 5.9 E12/L Remisol HemeWBC corrected for nucl RBC Auto (Bld) [#/Vol]10.4 E9/LNormal4.0 - 11.0 E9/LRemisol HemeMICRO OTHER TESTSOrdered By: Reina Zhang on 06-11-2023 Influenzae A AgNegative (06/11/23 12:52 PM)NormalNegativeSOUTHWESTERN [facility] Man SeroInfluenzae B AgNegative 2 (06/11/23 12:52 PM)NormalNegativeSOUTHWESTERN [facility] Man SeroComment on above:Interpretive Data: Test sensitivity and specificity vary for age group, specimen type, antigen types, and prevalence of disease. Test results must be evaluated in conjunction with other clinical dataavailable to the physician. Individuals who received nasally administered Influenza A vaccine may have positive test results up to 3 days after vaccination.Rapid COV Int NEG CtlPass (06/11/23 12:52 PM)NormalSOUTHWESTERN [facility] Man SeroRapid COV Int POS CtlPass (06/11/23 12:52 PM)NormalSOUTHWESTERN [facility] Man SeroSARS-CoV+SARS-CoV-2 (COVID-19) Ag IA.rapid Ql (Resp)Not Detected 11 (06/11/23 12:52 PM)NormalNot DetectedFT Man SeroComment on above:Interpretive Data: The [employer] System for Rapid Detection of SARS-CoV-2 is a chromatographic digital immunoassay intended for the direct and qualitative detection of SARS-CoV-2 nucleocapsid antigens in nasal swabs from individuals who are suspected of COVID-19 by their healthcare provider withinthe first five days of the onset of symptoms. Negative results should be treated as presumptive, do not rule out SARS-CoV-2 infection and should not be used as the sole basis for treatment or patient management decisions, including infection control decisions. Negative results should be considered in the context of a patient s recent exposures, history and the presence of clinical signs and symptoms consistent with COVID-19, and confirmed with a molecular assay, if necessary, for patient management. For in vitro diagnostic use. In the [place], only for use under an Emergency Use Authorization. In the [place], this test has not been FDA cleared or approved; this test has been authorized by FDA under an EUA for use by authorized laboratories; use by laboratories certified under the CLIA, 42 U.S.C. 263a, that meet requirements to perform moderate, high, or waived complexity tests and at the Point of Care (POC), i.e., in patient care settings operating under a CLIA Certificate of Waiver, Certificate of Compliance, or Certificate of Accreditation. This test has been authorized only for the detection of proteins from SARS-CoV-2, not for any otherviruses or pathogens; and, in the [place], this test is only authorized for the duration of the declaration that circumstances exist justifying the authorization of emergency use of in vitro diagnostics for detection and/or diagnosis of the virus that causes COVID-19 under Section 564(b)(1) of the Act,21 U.S.C. 360bbb-3(b)(1), unless the authorization is terminated or revoked sooner.No Panel InformationOrdered By: Yasir Chaves on 11-00-0639Dpefrze Glucose #2 CommentCleaned Dayton VA Medical CenterURINALYSISOrdered By: SYSTEM SYSTEM on 04-35-3073Timhxtax Auto Ql (U)Trace graded/HPFNormalTracegraded/HPFFT UA Auto SSBilirubin Ql (U)NegativeNormal Negativemg/dLFT UA Auto SSClarity (U)Clear (06/11/23 2:32 PM)NormalClearFNORMAN [facility] UA Auto SSColor (U)Yellow 1 (06/11/23 2:32 PM)NormalYellowFT UA Auto SSComment on above:Interpretive Data: Microscopic readings are only performed on those samples that meet specific criteria set forth by [facility].Crystals.amorphous Computer assisted Ql (U)Present graded/HPFInvalid Interpretation CodeSOUTHWESTERN [facility] UA Auto SSEpithelial cells.squamous Auto (Urine sed) [#/Area]0-2 graded/HPFNormal 0-2graded/HPFFT UA Auto SSGlucose Ql (U)NegativeNormalNegativemg/dLFT UA Auto SSHemoglobin Auto test strip (U) [Mass/Vol]NegativeNormalNegativemg/dLFTMC UA Auto SSKetones Auto test strip Ql (U)NegativeNormalNegativemg/dLFT UA Auto SSLeukocyte esterase Auto test strip Ql (U)250 Fili/uL Fili/uLInvalid Interpretation CodeNegativeLeu/uLSOUTHWESTERN MEDICAL [facility] UA Auto SSMucus Auto Ql (U)Trace graded/LPFNormalNegativegraded/LPFFTMC UA Auto SSNitrite Auto test strip Ql (U) 1+ mg/dLInvalid Interpretation CodeNegativemg/dLFT UA Auto SSpH (U)5.5 *NA* (06/11/23 2:32 PM)Invalid Interpretation Code5.0 - 9.0[facility] UA Auto SSProtein Ql (U)Trace mg/dLInvalid Interpretation CodeNegativemg/dLFT UA Auto SSRBC Ql (U) 0-3 graded/HPFNormal0-3graded/HPFFT UA Auto SSSpecific gravity (U) [Rel density]1.027 *NA* (06/11/23 2:32 PM)Invalid Interpretation Code1.005 - 1.030FT UA Auto SS Urobilinogen (U) [Mass/Vol]NegativeNormalNegativemg/dLFT UA Auto SSWBC Auto (Urine sed) [#/Area]0-5 graded/HPFNormal0-5graded/HPFFTMC UA Auto SSURINALYSIS Ordered By: Bismark Edwards on 94-39-2112SE Spec DescClean Catch (06/11/23 2:32 PM)NormalSOUTHWESTERN [facility] UA Auto SS Alanine aminotransferase [Enzymatic activity/volume] in Serum or PlasmaOrdered By: Valencia Ford on 09-20-0491TZK [Catalytic activity/Vol]44 U/L7-52F[facility] HospitalAlbumin [Mass/volume] in Serum or Plasma by Bromocresol green (BCG) dye binding methoOrdered By: Valencia Ford on 83-88-0320Wzrrrml BCG dye [Mass/Vol]4.0 g/dL3.5-5.7FMercy HospitalAlkaline phosphatase [Enzymatic activity/volume] in Serum or PlasmaOrdered By: Valencia Ford on 23-56-5293MOI [Catalytic activity/Vol]63 U/R72-231WialkxymuFlower HospitalAspartate aminotransferase [Enzymatic activity/volume] in Serum or PlasmaOrdered By: Valencia Ford on 03-03-9101AMK [Catalytic activity/Vol]27 U/Y38-45OdkfytdsdFlower HospitalAutomated erythrocytes count in urine sediment (number/area)Ordered By: Valencia Ford on 59-58-8127NXO Auto (Urine sed) [#/Area]0-1 [HPF]0-4FMercy HospitalAutomated leukocytes count in urine sediment (number/area)Ordered By: Valencia Ford on 43-03-8814YAF Auto (Urine sed) [#/Area]5-9 [HPF]0-4FMercy HospitalBasophils Auto (Bld) [#/Vol]Ordered By: Valencia Ford on 34-86-2196Pgrvqnmtz (Bld) [#/Vol]0.1 10*3/uL0.0-0.2FMercy HospitalBasophils/100 WBC Auto (Bld)Ordered By: Valencia Ford on 04-15-2023 Basophils/100 WBC (Bld)1.4 %.Flower HospitalBilirubin Test strip Ql (U)Ordered By: Valencia Ford on 75-16-1465Hybpummqv Ql (U)Negative NegativeFlower HospitalBilirubin.total [Mass/volume] in Serum or PlasmaOrdered By: Valencia Ford on 43-81-5628Elcbshdvx [Mass/Vol]0.4 mg/dL 0.3-1.0F[facility] HospitalCalcium [Mass/volume] in Serum or Plasma Ordered By: Valencia Ford on 47-53-2574Qrzxgfo [Mass/Vol]9.0 mg/dL8.6-10.3 [facility] HospitalCarbon dioxide, total [Moles/volume] in Serum or PlasmaOrdered By: Valencia Ford on 90-41-6842WW4 [Moles/Vol]30.8 mmol/L 21.0-31.0Flower HospitalChloride [Moles/volume] in Serum or PlasmaOrdered By: Valencia Ford on 16-52-3934Dlyexmfs [Moles/Vol]99 mmol/L 98-107Flower HospitalColor Auto (U)Ordered By: Valencia Ford on 02-93-7079Gcrfa (U)YellowYellowFlower HospitalCreatinine [Mass/volume] in Serum or PlasmaOrdered By: Valencia Ford on 04-15-2023 Creatinine [Mass/Vol]0.73 mg/dL0.60-1.20[facility] Eosinophils Auto (Bld) [#/Vol]Ordered By: Valencia Ford on 04-15-2023 Eosinophils (Bld) [#/Vol]0.2 10*3/uL0.0-0.45[facility] Eosinophils/100 WBC Auto (Bld)Ordered By: Valencia Ford on 04-15-2023 Eosinophils/100 WBC (Bld)2.2 %.Flower HospitalErythrocyte distribution width Auto (RBC) [Ratio]Ordered By: Valencia Ford on 04-15-2023 Erythrocyte distribution width (RBC) [Ratio]17.8 %11.9-15.3FMercy HospitalGlobulin Calc (S) [Mass/Vol]Ordered By: Valencia Ford on 27-12-5999Kdcsrolt (S) [Mass/Vol]3.4 g/dLFlower Hospital Glucose Glucometer (BldC) [Mass/Vol]Ordered By: Valencia Ford on 04-15-2023 Glucose [Mass/Vol]205 mg/dLFlower HospitalComment on above: Random Glucose Reference Range is dependent on time and content of last meal. Glucose of more than 200 mg/dL in a nonstressed, ambulatory subject supports the diagnosis of Diabetes Mellitus.Glucose [Mass/volume] in Serum or PlasmaOrdered By: Valencia Ford on 65-52-3123Jxcqnyl [Mass/Vol]222 mg/iQ58-060YstdjwfjrFlower HospitalComment on above:ADA recommended reference rangeRandom Glucose Reference Range is dependent on time and content of last meal. Glucose of more than 200 mg/dL in a nonstressed, ambulatory subject supports the diagnosisof Diabetes Mellitus.Hematocrit Auto (Bld) [Volume fraction]Ordered By: Valencia Ford on 57-64-7847Wjxzklswqc (Bld) [Volume fraction]40.2 %34.0-46.4 [facility] HospitalHemoglobin [Mass/volume] in BloodOrdered By: Valencia Ford on 93-90-7829Lhisgjupxd (Bld) [Mass/Vol]13.1 g/dL11.8-15.4 Flower HospitalKetones Auto test strip (U) [Mass/Vol]Ordered By: Valencia Ford on 90-34-3057Xrvlokh (U) [Mass/Vol]NegativeNegativeFlower HospitalLaboratory - UrinalysisOrdered By: Valencia Ford on 34-57-0168Bhoirfl casts LM Ql (Urine sed)0-8 [LPF]0-8Flower HospitalLeukocytes [#/volume] corrected for nucleated erythrocytes in Blood by Automated counOrdered By: Valencia Ford on 82-25-1071IOE corrected for nucl RBC Auto (Bld) [#/Vol]7.3 10*3/uL3.8-11.6FMercy Hospital Lymphocytes Auto (Bld) [#/Vol]Ordered By: Valencia Ford on 04-15-2023 Lymphocytes (Bld) [#/Vol]1.0 10*3/uL1.00-4.8[facility] Lymphocytes/100 WBC Auto (Bld)Ordered By: Valencia Ford on 04-15-2023 Lymphocytes/100 WBC (Bld)14.1 %.[facility]H Auto (RBC) [Entitic mass]Ordered By: Valencia Ford on 66-98-3154VQR (RBC) [Entitic mass] 30.8 pg24.7-34.3FMercy HospitalMCHC Auto (RBC) [Mass/Vol] Ordered By: Valencia Ford on 41-03-1415KRFY (RBC) [Mass/Vol]32.6 g/dL32.0-35.0 [facility] HospitalMCV Auto (RBC) [Entitic vol]Ordered By: Valencia Ford on 74-03-1549GXY (RBC) [Entitic vol]94.5 gO81-022JtapazmznFlower HospitalMonocyte distribution width [Entitic volume] in Blood by AutomatedOrdered By: Valencia Ford on 01-71-4168Bkcccrhv distribution width Auto (Bld) [Entitic vol]18.91 %0.00-20.00[facility] Monocytes Auto (Bld) [#/Vol]Ordered By: Valencia Ford on 00-81-5221Kcdyjdkfk (Bld) [#/Vol]0.4 10*3/uL0.0-0.8[facility] HospitalMonocytes/100 WBC Auto (Bld)Ordered By: Valencia Ford on 63-20-2739Crifjzaxp/100 WBC (Bld) 5.4 %.[facility] HospitalNeutrophils Auto (Bld) [#/Vol]Ordered By: Valencia Ford on 32-59-0298Xfgunembmyh (Bld) [#/Vol]5.6 10*3/uL1.8-7.7 [facility] HospitalNeutrophils/100 WBC Auto (Bld)Ordered By: Valencia Ford on 16-21-9627Uuwsuivdafn/100 WBC (Bld)76.9 %.[facility] HospitalNitrite Test strip Ql (U)Ordered By: Valencia Ford on 04-15-2023 Nitrite Ql (U)NegativeNegativeFlower HospitalNo Panel InformationOrdered By: Valencia Ford on 70-64-8877Cmbsznqumzqvl (Keppra) Level 42.0 ug/mL10.0-40.0Flower HospitalComment on above:Performed at: [facility] [id number] Director: Zeke Cowan MD, Phone: [phone] GFR (CKD-EPI)> 60.0 mL/MinFlower HospitalPharmacy Creatinine Clearance (Chem98.98 [facility] HospitalNucleated erythrocytes [Presence] in Blood by Automated countOrdered By: Valencia Ford on 44-25-9251Lxbcwjcfg RBC Auto Ql (Bld)0.1 /100{WBC}0-0.5FMercy HospitalPlatelet mean volume Auto (Bld) [Entitic vol]Ordered By: Valencia Ford on 91-25-9000Emwjpjnn mean volume (Bld) [Entitic vol]8.9 fL6.3-10.7FMercy Hospital Platelets Auto (Bld) [#/Vol]Ordered By: Valencia Ford on 58-11-6813Hcojnhqbr (Bld) [#/Vol]279 10*3/eN292-853CkgfrwayzFlower HospitalPotassium [Moles/volume] in Serum or PlasmaOrdered By: Valencia Ford on 04-15-2023 Potassium [Moles/Vol]4.5 mmol/L3.5-5.1FMercy HospitalProlactin [Mass/volume] in Serum or PlasmaOrdered By: Valencia Ford on 04-15-2023 Prolactin [Mass/Vol]28.75 ng/mL3.34-26.72[facility] Protein Auto test strip (U) [Mass/Vol]Ordered By: Valencia Ford on 04-15-2023 Protein (U) [Mass/Vol]NegativeNegativeFlower HospitalProtein [Mass/volume] in Serum or PlasmaOrdered By: Valencia Ford on 23-59-0219Jggzoel [Mass/Vol]7.4 g/dL6.4-8.9[facility] HospitalRBC Auto (Bld) [#/Vol]Ordered By: Valencia Ford on 45-68-5499RJF (Bld) [#/Vol]4.25 10*6/uL 3.60-5.00[facility] Medical Centererum or plasma albumin/globulin mass ratioOrdered By: Valencia Ford on 24-64-5734Ghaogow/Globulin [Mass ratio]1.2 {ratio}[facility] Medical Centererum or plasma anion gap determination Ordered By: Valencia Ford on 72-94-6341Yodtj gap [Moles/Vol]11.7 mmol/L 6.0-15.0[facility] Medical Centerodium [Moles/volume] in Serum or PlasmaOrdered By: Valencia Ford 55-47-8155Kmdxsr [Moles/Vol]137 mmol/L 136-145[facility] Medical Centerpecific gravity Auto test strip (U) [Rel density]Ordered By: Valencia Ford on 68-07-0003Jtokxlrf gravity (U) [Rel density]1.0061.001-1.030[facility] Medical Centerquamous epithelial cells detection in urine sediment by light microscopyOrdered By: Valencia Ford on 20-53-7516Mntodbejtu cells.squamous LM Ql (Urine sed)0-1 [HPF]0-2FMercy HospitalUrea nitrogen [Mass/volume] in Serum or PlasmaOrdered By: Valencia Ford on 05-42-7148Jabp nitrogen [Mass/Vol]12 mg/dL7-25F[facility] HospitalUrine bacteria detection by automated methodOrdered By: Valencia Ford 05-98-8156Qmfjoiag Auto Ql (U)None seenNone SeenFlower HospitalUrine clarity by refractometry automatedOrdered By: Valencia Ford 93-73-2684Aletggu Refractometry automated (U)ClearClear [facility] HospitalUrine culture routineOrdered By: Valencia Ford 73-09-4031Ulwchiic identified Cx Nom (U)2 DaysFlower HospitalUrine glucose measurement by automated test strip (mass/volume) Ordered By: Valencia Ford on 30-24-2448Uuhtyqq Auto test strip (U) [Mass/Vol] Normal mg/dLNormalFlower HospitalUrine hemoglobin detection by automated test stripOrdered By: Valencia Ford on 02-34-4246Uaqtjgpalw Auto test strip Ql (U)NegativeNegativeFlower HospitalUrine leukocyte esterase detection by automated test stripOrdered By: Valencia Ford on 79-28-6061Cnwogmaif esterase Auto test strip Ql (U)2+NegativeFlower HospitalUrobilinogen Auto test strip (U) [Mass/Vol]Ordered By: Valencia Ford on 93-59-2257Qshdrgqclsuh (U) [Mass/Vol]Normal mg/dLNormal [facility] HospitalWBC Auto (Bld) [#/Vol]Ordered By: Valencia Ford on 14-48-0692PNT (Bld) [#/Vol]7.3 10*3/uL3.8-11.6FMercy HospitalpH Auto test strip (U)Ordered By: Valencia Ford on 03-66-4060wS (U)5.5 [pH]5.0-9.0F[facility] HospitalAlanine aminotransferase [Enzymatic activity/volume] in Serum or PlasmaOrdered By: Cornell Gupta on 23-52-4525ZXR [Catalytic activity/Vol]172 U/L7-52F[facility] HospitalAlbumin [Mass/volume] in Serum or Plasma by Bromocresol green (BCG) dye binding methoOrdered By: Cornell Gupta on 09-37-8281Korepvy BCG dye [Mass/Vol] 3.7 g/dL3.5-5.7FMercy HospitalAlkaline phosphatase [Enzymatic activity/volume] in Serum or PlasmaOrdered By: Cornell Gupta on 23-34-0674MNV [Catalytic activity/Vol]71 U/S10-400QtbbhrxphFlower HospitalAspartate aminotransferase [Enzymatic activity/volume] in Serum or PlasmaOrdered By: Cornell Gupta on 56-10-5212FTF [Catalytic activity/Vol]62 U/E33-69ZsovuoiceFlower HospitalBasophils Auto (Bld) [#/Vol]Ordered By: Cornell Gupta on 37-59-0166Iqvbfxcvx (Bld) [#/Vol]0.1 10*3/uL0.0-0.2[facility] CenterBasophils/100 WBC Auto (Bld)Ordered By: Cornell Gupta on 04-05-2023 Basophils/100 WBC (Bld)0.9 %.[facility] HospitalBilirubin.total [Mass/volume] in Serum or PlasmaOrdered By: Cornell Gupta on 04-05-2023 Bilirubin [Mass/Vol]0.5 mg/dL0.3-1.0[facility] HospitalCOVID CepheidOrdered By: Cornell Gupta on 93-82-5308BJRC-CoV-2 (COVID-19) Ab IA Ql NegativeNegativeFlower HospitalComment on above:This is a duplicate [employer] Xpert Xpress CoV-2/Flu/RSV Plus RNA by RT-PCR result to be used for statistical tracking purpose only.SARS-CoV-2 (COVID-19) RNA ANTHONY+probe Ql (Unsp spec)[facility] Medical CenterARS-CoV-2 (COVID-19) RNA ANTHONY+probe Ql (Unsp spec)[facility] HospitalCalcium [Mass/volume] in Serum or PlasmaOrdered By: Cornell Gupta on 51-20-6017Pdnywtn [Mass/Vol]8.8 mg/dL8.6-10.3FMercy HospitalCarbon dioxide, total [Moles/volume] in Serum or PlasmaOrdered By: Cornell Gupta on 55-24-9115VL0 [Moles/Vol]33.6 mmol/L21.0-31.0[facility] HospitalChloride [Moles/volume] in Serum or PlasmaOrdered By: Cornell Gupta on 04-05-2023 Chloride [Moles/Vol]100 mmol/S70-336BxcrbytraFlower HospitalCreatine kinase [Enzymatic activity/volume] in Serum or PlasmaOrdered By: Cornell Gupta on 31-56-0921BI [Catalytic activity/Vol]91 U/A43-298ZtswjksojFlower HospitalCreatinine [Mass/volume] in Serum or PlasmaOrdered By: Cornell Gupta on 14-72-2444Cabfynydng [Mass/Vol]0.76 mg/dL0.60-1.20F[facility] HospitalEosinophils Auto (Bld) [#/Vol]Ordered By: Cornell Gupta on 04-05-2023 Eosinophils (Bld) [#/Vol]0.2 10*3/uL0.0-0.45[facility] Eosinophils/100 WBC Auto (Bld)Ordered By: Cornell Gupta on 04-05-2023 Eosinophils/100 WBC (Bld)1.5 %.[facility] HospitalErythrocyte distribution width Auto (RBC) [Ratio]Ordered By: Cornell Gupta on 04-05-2023 Erythrocyte distribution width (RBC) [Ratio]17.2 %11.9-15.3FMercy HospitalGlobulin Calc (S) [Mass/Vol]Ordered By: Cornell Gupta on 33-85-0623Mqrtfxqa (S) [Mass/Vol]3.5 g/dLFlower Hospital Glucose [Mass/volume] in Serum or PlasmaOrdered By: Cornell Gupta on 04-05-2023 Glucose [Mass/Vol]123 mg/uH64-347HgsluzrfnFlower HospitalComment on above:ADA recommended reference rangeRandom Glucose Reference Range is dependent on time and content of last meal. Glucose of more than 200 mg/dL in a nonstressed, ambulatory subject supports the diagnosisof Diabetes Mellitus. Hematocrit Auto (Bld) [Volume fraction]Ordered By: Cornell Gupta on 04-05-2023 Hematocrit (Bld) [Volume fraction]36.0 %34.0-46.4FMercy HospitalHemoglobin [Mass/volume] in BloodOrdered By: Cornell Gupta on 04-05-2023 Hemoglobin (Bld) [Mass/Vol]11.6 g/dL11.8-15.4FMercy Hospital Laboratory - Chemistry and Chemistry - challengeOrdered By: Cornell Gupta on 44-67-8895RV4 [Moles/Vol]35.9 mmol/L23.0-27.0[facility] HCO3 (Bld) [Moles/Vol]34.0 mmol/L23.0-29.0[facility] Leukocytes [#/volume] corrected for nucleated erythrocytes in Blood by Automated counOrdered By: Cornell Gupta on 42-95-0163JTR corrected for nucl RBC Auto (Bld) [#/Vol]11.4 10*3/uL3.8-11.6FMercy HospitalLymphocytes Auto (Bld) [#/Vol]Ordered By: Cornell Gupta on 59-35-8991Plguclrkjsv (Bld) [#/Vol]1.0 10*3/uL1.00-4.8F[facility] HospitalLymphocytes/100 WBC Auto (Bld)Ordered By: Cornell Gupta on 61-93-3879Sxatdamecqn/100 WBC (Bld)9.1 % .[facility] HospitalH Auto (RBC) [Entitic mass]Ordered By: Cornell Gupta on 60-82-7439GIQ (RBC) [Entitic mass]30.5 pg24.7-34.3FMercy HospitalMCHC Auto (RBC) [Mass/Vol]Ordered By: Cornell Gupta on 32-24-7848TLHD (RBC) [Mass/Vol]32.1 g/dL32.0-35.0F[facility] HospitalMCV Auto (RBC) [Entitic vol]Ordered By: Cornell Gupta on 43-31-5379NVB (RBC) [Entitic vol]95.0 kN38-146LqglyenigFlower HospitalMonocyte distribution width [Entitic volume] in Blood by AutomatedOrdered By: Cornell Gupta on 08-35-9250Ntgcsfpn distribution width Auto (Bld) [Entitic vol]22.35 % 0.00-20.00Flower HospitalComment on above:For adults in ED, MDW > 20.0 may be associated with a higher risk of sepsis during the first 12 h rs of hospital admissionMonocytes Auto (Bld) [#/Vol]Ordered By: Cornell Gupta on 10-86-9946Rsifwxgpu (Bld) [#/Vol]0.7 10*3/uL0.0-0.8F[facility] HospitalMonocytes/100 WBC Auto (Bld)Ordered By: Cornell Gupta on 04-05-2023 Monocytes/100 WBC (Bld)6.3 %.[facility] HospitalNatriuretic peptide B [Mass/Vol]Ordered By: Cornell Gupta on 62-04-8997Lrdougnnrlz peptide B (Bld) [Mass/Vol]64.0 pg/mL5-100F[facility] HospitalNeutrophils Auto (Bld) [#/Vol]Ordered By: Cornell Gupta on 35-69-4755Vjjwzuriqjg (Bld) [#/Vol]9.4 10*3/uL1.8-7.7FMercy HospitalNeutrophils/100 WBC Auto (Bld)Ordered By: Cornell Gupta on 82-24-6812Qnhoblyutpi/100 WBC (Bld)82.2 %.[facility] HospitalNo Panel InformationOrdered By: Cornell Gupta on 77-29-8200Okxeytgh Blood Base Excess6.7 mmol/L-3.0-3.0F[facility] HospitalArterial Blood Oxygen Content7.5 mmol/L6.6-9.7FMercy HospitalArterial Blood Oxygen Xsetwzevzg10.9 %95.0-100.0F[facility] HospitalArterial Blood Partial Pressure CO261.4 mm[Hg]35.0-45.0 [facility] HospitalArterial Blood Partial Pressure O275.4 mm[Hg] 80.0-100.0F[facility] HospitalArterial Blood pH7.367.35-7.45 [facility] HospitalBlood Gas Critical ValueSee [facility] Valley Medical CenterComment on above:Critical Value called on: 04/05/2023 at 13:50Blood Gas Liter Flow4l L/[facility] CampusBlkittson [facility] hospital Gas Sample SiteLeft Salem City HospitalFiO2Na %[facility] HospitalEstimated GFR (CKD-EPI)> 60.0 mL/MinFlower HospitalPharmacy Creatinine Clearance (Chem97.24F[facility] HospitalNucleated erythrocytes [Presence] in Blood by Automated countOrdered By: Cornell Gupta on 22-31-6757Oxsfitibb RBC Auto Ql (Bld)0.7 /100{WBC}0-0.5 [facility] HospitalPlatelet mean volume Auto (Bld) [Entitic vol] Ordered By: Cornell Gupta on 38-87-2034Ysetiozv mean volume (Bld) [Entitic vol] 9.3 fL6.3-10.7FMercy HospitalPlatelets Auto (Bld) [#/Vol] Ordered By: Cornell Gupta on 64-00-6456Jcbwfiuzu (Bld) [#/Vol]228 10*3/uL 150-450F[facility] HospitalPotassium [Moles/volume] in Serum or PlasmaOrdered By: Cornell Gupta on 81-55-5586Uskixcimf [Moles/Vol]4.5 mmol/L 3.5-5.1FMercy HospitalProtein [Mass/volume] in Serum or Plasma Ordered By: Cornell Gupta on 40-03-8181Xakqrtl [Mass/Vol]7.2 g/dL6.4-8.9 F[facility] HospitalRBC Auto (Bld) [#/Vol]Ordered By: Cornell Gupta on 98-98-4204MOR (Bld) [#/Vol]3.79 10*6/uL3.60-5.00[facility] Centererum or plasma albumin/globulin mass ratioOrdered By: Cornell Gupta on 63-19-6827Jygczdb/Globulin [Mass ratio]1.1 {ratio}[facility] Centererum or plasma anion gap determinationOrdered By: Cornell Gupta on 42-67-0764Bbict gap [Moles/Vol]8.9 mmol/L6.0-15.0[facility] Medical Centerodium [Moles/volume] in Serum or PlasmaOrdered By: Cornell Gupta on 88-71-6373Uakwdl [Moles/Vol]138 mmol/R899-956RabohikdsFlower Hospital Troponin I.cardiac [Mass/volume] in Serum or Plasma by Detection limit <= 0.01 ng/Ordered By: Cornell Gupta on 53-12-5685Lktmcuyi I.cardiac DL <= 0.01 ng/mL [Mass/Vol]15.8 pg/mL0.0-15.0F[facility] HospitalUrea nitrogen [Mass/volume] in Serum or PlasmaOrdered By: Cornell Gupta on 63-55-1663Eqkf nitrogen [Mass/Vol]13 mg/dL7-25Flower HospitalWBC Auto (Bld) [#/Vol]Ordered By: Cornell Gupta on 89-33-5816RML (Bld) [#/Vol]11.4 10*3/uL 3.8-11.6FMercy HospitalAlanine aminotransferase [Enzymatic activity/volume] in Serum or PlasmaOrdered By: Alexander Barrera on 64-24-5892SYA [Catalytic activity/Vol]40 U/L7-52F[facility] HospitalAlbumin [Mass/volume] in Serum or Plasma by Bromocresol green (BCG) dye binding metho Ordered By: Alexander Barrera on 29-53-3957Qsglhvv BCG dye [Mass/Vol]4.0 g/dL3.5-5.7 [facility] HospitalAlkaline phosphatase [Enzymatic activity/volume] in Serum or PlasmaOrdered By: Alexander Barrera on 58-63-0727OYJ [Catalytic activity/Vol]58 U/X51-155MqbagffrbFlower HospitalAspartate aminotransferase [Enzymatic activity/volume] in Serum or PlasmaOrdered By: Alexander Barrera on 19-18-7801SOP [Catalytic activity/Vol]21 U/A72-18EmsfeszqkFlower HospitalBasophils Auto (Bld) [#/Vol]Ordered By: Alexander Barrera on 03-13-2023 Basophils (Bld) [#/Vol]0.1 10*3/uL0.0-0.2FMercy Hospital Basophils/100 WBC Auto (Bld)Ordered By: Alexander Barrera on 06-92-8484Jfycanoar/100 WBC (Bld)1.1 %.[facility] HospitalBilirubin.total [Mass/volume] in Serum or PlasmaOrdered By: Alexander Barrera on 79-51-9442Ufgujjrjs [Mass/Vol]0.3 mg/dL0.3-1.0F[facility] HospitalCalcium [Mass/volume] in Serum or PlasmaOrdered By: Alexander Barrera on 72-54-6024Hvbqljw [Mass/Vol]9.8 mg/dL8.6-10.3 [facility] HospitalCarbon dioxide, total [Moles/volume] in Serum or PlasmaOrdered By: Alexander Barrera on 65-64-7856GJ6 [Moles/Vol]33.6 mmol/L21.0-31.0 [facility] HospitalChloride [Moles/volume] in Serum or Plasma Ordered By: Alexander Barrera on 22-83-9530Ocbnsccd [Moles/Vol]99 mmol/C26-605QojigrdzzFlower HospitalCreatinine [Mass/volume] in Serum or PlasmaOrdered By: Alexander Barrera on 02-29-3977Utnyjtcrny [Mass/Vol]0.81 mg/dL0.60-1.20F[facility] HospitalEosinophils Auto (Bld) [#/Vol]Ordered By: Alexander Barrera on 73-99-8790Aqnopofyvyz (Bld) [#/Vol]0.2 10*3/uL0.0-0.45F[facility] HospitalEosinophils/100 WBC Auto (Bld)Ordered By: lAexander Barrera on 03-13-2023 Eosinophils/100 WBC (Bld)1.7 %.[facility] HospitalErythrocyte distribution width Auto (RBC) [Ratio]Ordered By: Alexander Barrera on 03-13-2023 Erythrocyte distribution width (RBC) [Ratio]16.3 %11.9-15.3FMercy HospitalGlobulin Calc (S) [Mass/Vol]Ordered By: Alexander Barrera on 03-13-2023 Globulin (S) [Mass/Vol]3.5 g/dLFlower HospitalGlucose [Mass/volume] in Serum or PlasmaOrdered By: Alexander Barrera on 01-17-2162Gmzhktb [Mass/Vol]179 mg/vD20-056EcvouoitfFlower HospitalComment on above:ADA recommended reference rangeRandom Glucose Reference Range is dependent on time and content of last meal. Glucose of more than 200 mg/dL in a nonstressed, ambulatory subject supports the diagnosisof Diabetes Mellitus.Hematocrit Auto (Bld) [Volume fraction]Ordered By: Alexander Barrera on 35-26-4770Bjhqjhgrex (Bld) [Volume fraction]39.6 %34.0-46.4FMercy HospitalHemoglobin [Mass/volume] in BloodOrdered By: Alexander Barrera on 78-78-9260Tjokcztlvg (Bld) [Mass/Vol]13.2 g/dL11.8-15.4FMercy HospitalLeukocytes [#/volume] corrected for nucleated erythrocytes in Blood by Automated coun Ordered By: Alexander Barrera on 68-75-7958ZEE corrected for nucl RBC Auto (Bld) [#/Vol]8.9 10*3/uL3.8-11.6FMercy HospitalLymphocytes Auto (Bld) [#/Vol]Ordered By: Alexander Barrera on 55-34-6800Vihlgcvkgsg (Bld) [#/Vol]1.7 10*3/uL1.00-4.8Flower HospitalLymphocytes/100 WBC Auto (Bld) Ordered By: Alexander Barrera on 44-23-5134Eopnuomnxxh/100 WBC (Bld)19.0 %.[facility] HospitalMCH Auto (RBC) [Entitic mass]Ordered By: Alexander Barrera on 69-29-9636RCC (RBC) [Entitic mass]30.9 pg24.7-34.3FMercy HospitalMCHC Auto (RBC) [Mass/Vol]Ordered By: Alexander Barrera on 23-24-0996UNHH (RBC) [Mass/Vol]33.2 g/dL32.0-35.0F[facility] HospitalMCV Auto (RBC) [Entitic vol]Ordered By: Alexander Barrera on 69-49-7848CBS (RBC) [Entitic vol]93.0 fL 80-100Flower HospitalMonocyte distribution width [Entitic volume] in Blood by AutomatedOrdered By: Alexander Barrera on 48-46-5989Txgadlko distribution width Auto (Bld) [Entitic vol]20.19 %0.00-20.00F[facility] HospitalComment on above:For adults in ED, MDW > 20.0 may be associated with a higher risk of sepsis during the first 12 hrs of hospital admission Monocytes Auto (Bld) [#/Vol]Ordered By: Alexander Barrera on 87-28-1388Urdobwndk (Bld) [#/Vol]0.7 10*3/uL0.0-0.8F[facility] HospitalMonocytes/100 WBC Auto (Bld)Ordered By: Alexander Barrera on 60-13-8552Jttbvpymv/100 WBC (Bld)7.5 %.[facility] HospitalNeutrophils Auto (Bld) [#/Vol]Ordered By: Alexander Barrera on 99-64-1898Whmzojqdrvf (Bld) [#/Vol]6.3 10*3/uL1.8-7.7FMercy HospitalNeutrophils/100 WBC Auto (Bld)Ordered By: Alexander Barrera on 03-13-2023 Neutrophils/100 WBC (Bld)70.7 %.[facility] HospitalNo Panel InformationOrdered By: Alexander Barrera on 78-92-8679Fiyzzoujpwfja (Keppra) Level11.1 ug/mL10.0-40.0Flower HospitalComment on above:Performed at: [facility] [address] [id number] Director: Zeke Cowan MD, Phone: [phone] GFR (CKD-EPI)> 60.0 mL/Min [facility] HospitalPharmacy Creatinine Clearance (Chem90.87 [facility] HospitalNucleated erythrocytes [Presence] in Blood by Automated countOrdered By: Alexander Barrera on 38-33-3179Djudngpmw RBC Auto Ql (Bld) 0.1 /100{WBC}0-0.5FMercy HospitalPlatelet mean volume Auto (Bld) [Entitic vol]Ordered By: Alexander Barrera on 46-40-7418Nzwqncrb mean volume (Bld) [Entitic vol]8.9 fL6.3-10.7FMercy HospitalPlatelets Auto (Bld) [#/Vol]Ordered By: Alexander Barrera on 78-48-7084Knyugejph (Bld) [#/Vol]241 10*3/gG314-084JybcxdqkzFlower HospitalPotassium [Moles/volume] in Serum or PlasmaOrdered By: Alexander Barrera on 68-69-4677Ytjwgyzrd [Moles/Vol]4.4 mmol/L 3.5-5.1FMercy HospitalProtein [Mass/volume] in Serum or Plasma Ordered By: Alexander Barrera on 67-06-1549Kpvqzte [Mass/Vol]7.5 g/dL6.4-8.9F[facility] HospitalRBC Auto (Bld) [#/Vol]Ordered By: Alexander Barrera on 81-03-9332KJE (Bld) [#/Vol]4.26 10*6/uL3.60-5.00[facility] Centererum or plasma albumin/globulin mass ratioOrdered By: Alexander Barrera on 64-76-7729Orggvki/Globulin [Mass ratio]1.1 {ratio}[facility] Centererum or plasma anion gap determinationOrdered By: Alexander Barrera on 89-94-8478Mnhwy gap [Moles/Vol]9.8 mmol/L6.0-15.0[facility] Medical Centerodium [Moles/volume] in Serum or PlasmaOrdered By: Alexander Bruce on 40-79-8515Dmxdof [Moles/Vol]138 mmol/I397-190NldnxhdrcFlower Hospital Urea nitrogen [Mass/volume] in Serum or PlasmaOrdered By: Alexander Barrera on 00-70-0786Ixbq nitrogen [Mass/Vol]15 mg/dL7-25[facility] WBC Auto (Bld) [#/Vol]Ordered By: Alexander Barrera on 05-30-9062MVR (Bld) [#/Vol]8.9 10*3/uL3.8-11.6FMercy HospitalAlanine aminotransferase [Enzymatic activity/volume] in Serum or PlasmaOrdered By: Nemo Kennedy on 00-75-6955ZTA [Catalytic activity/Vol]34 U/L7-52F[facility] HospitalAlbumin [Mass/volume] in Serum or Plasma by Bromocresol green (BCG) dye binding methoOrdered By: Nemo Kennedy on 84-10-1811Qyziszd BCG dye [Mass/Vol]3.9 g/dL3.5-5.7FMercy HospitalAlkaline phosphatase [Enzymatic activity/volume] in Serum or PlasmaOrdered By: Nemo Kennedy on 79-28-4843HRQ [Catalytic activity/Vol]71 U/C89-043DidokixxpFlower HospitalAspartate aminotransferase [Enzymatic activity/volume] in Serum or PlasmaOrdered By: Nemo Kennedy on 09-71-0318ASV [Catalytic activity/Vol]17 U/G61-75JdlpqvlirFlower HospitalBasophils Auto (Bld) [#/Vol]Ordered By: Nemo Kennedy on 02-14-2023 Basophils (Bld) [#/Vol]0.1 10*3/uL0.0-0.2FMercy Hospital Basophils/100 WBC Auto (Bld)Ordered By: Nemo Kennedy on 70-39-4549Cgbkzidpo/100 WBC (Bld)1.0 %.[facility] HospitalBilirubin.total [Mass/volume] in Serum or PlasmaOrdered By: Nemo Kennedy on 40-28-2023Rbptasgvw [Mass/Vol]0.3 mg/dL0.3-1.0[facility] HospitalCOVID-19 Detected/Not Detected Ordered By: Nemo Kennedy on 42-36-3948JAKT-CoV-2 (COVID-19) RNA ANTHONY+non-probe Ql (Nph)Not detectedNot DetectUniversity Hospitals Cleveland Medical CenterComment on above: This is a duplicate RP2.1 COVID (PCR) result to be used for statistical tracking purpose only.Calcium [Mass/volume] in Serum or PlasmaOrdered By: Nemo Lacychol on 99-30-7549Vxxogam [Mass/Vol]8.9 mg/dL8.6-10.3FMercy Hospital Carbon dioxide, total [Moles/volume] in Serum or PlasmaOrdered By: Nemo Lacychol on 36-38-1328HG7 [Moles/Vol]32.8 mmol/L21.0-31.0[facility] HospitalChloride [Moles/volume] in Serum or PlasmaOrdered By: Nemo Lacychol on 96-02-1742Uqdfekzl [Moles/Vol]99 mmol/R76-084HrjsqggykFlower Hospital Cholesterol [Mass/volume] in Serum or PlasmaOrdered By: Nemo Lacychol on 39-05-6736Tkcvehawfoy [Mass/Vol]164 mg/tR262-769NmecwvnyiFlower HospitalComment on above:Chol less than 200 mg/dl low riskChol 201-239 mg/dl borderline riskChol 240 mg/dl and greater high riskCholesterol in LDL Calc [Mass/Vol]Ordered By: Nemo Lacychol on 48-28-7614Vdsefaxcbfp in LDL [Mass/Vol]101 mg/dL0-100F[facility] HospitalComment on above:LDL ATP III CLASSIFICATIONLDL less than 100 mg/dL OptimalLDL 100-129 mg/dL Near or above tyshclhAQX432-009 mg/dL Borderline highLDL 160-189 mg/dL HighLDL greater than 189 mg/dL Very highCholesterol in VLDL Calc [Mass/Vol]Ordered By: Nemo Lacychol on 19-23-1794Fthyiuxfyeq in VLDL [Mass/Vol]27 mg/dLFlower HospitalCreatinine [Mass/volume] in Serum or PlasmaOrdered By: Nemo Kennedy on 52-72-2681Zgozhhdvxs [Mass/Vol]0.74 mg/dL0.60-1.20F[facility] HospitalEosinophils Auto (Bld) [#/Vol]Ordered By: Nemo Kenendy on 02-14-2023 Eosinophils (Bld) [#/Vol]0.1 10*3/uL0.0-0.45[facility] Eosinophils/100 WBC Auto (Bld)Ordered By: Nemo Kennedy on 02-14-2023 Eosinophils/100 WBC (Bld)1.6 %.[facility] HospitalErythrocyte distribution width Auto (RBC) [Ratio]Ordered By: Nemo Kennedy on 02-14-2023 Erythrocyte distribution width (RBC) [Ratio]15.3 %11.9-15.3FMercy HospitalGlobulin Calc (S) [Mass/Vol]Ordered By: Nemo Kennedy on 02-14-2023 Globulin (S) [Mass/Vol]3.6 g/dLFlower HospitalGlucose [Mass/volume] in Serum or PlasmaOrdered By: Nemo Kennedy on 04-21-5002Oknpstn [Mass/Vol]183 mg/uJ26-684ZcnfdyncrFlower HospitalComment on above:ADA recommended reference rangeRandom Glucose Reference Range is dependent on time and content of last meal. Glucose of more than 200 mg/dL in a nonstressed, ambulatory subject supports the diagnosisof Diabetes Mellitus.Hematocrit Auto (Bld) [Volume fraction]Ordered By: Nemo Kennedy on 25-59-0096Msapspgyig (Bld) [Volume fraction]39.7 %34.0-46.4FMercy HospitalHemoglobin [Mass/volume] in BloodOrdered By: Nemo Kennedy on 03-76-3992Ldokeshxre (Bld) [Mass/Vol]13.0 g/dL11.8-15.4FMercy HospitalLeukocytes [#/volume] corrected for nucleated erythrocytes in Blood by Automated coun Ordered By: Nemo Kennedy on 11-49-6066NJT corrected for nucl RBC Auto (Bld) [#/Vol]8.8 10*3/uL3.8-11.6FMercy HospitalLymphocytes Auto (Bld) [#/Vol]Ordered By: Nemo Kennedy on 69-05-5038Wsekcllwrga (Bld) [#/Vol]1.6 10*3/uL1.00-4.8F[facility] HospitalLymphocytes/100 WBC Auto (Bld) Ordered By: Nemo Kennedy on 68-64-6503Pkkanwlqysb/100 WBC (Bld)17.7 %.[facility]H Auto (RBC) [Entitic mass]Ordered By: Nemo Kennedy on 80-37-5808BYM (RBC) [Entitic mass]30.2 pg24.7-34.3FMercy HospitalMCHC Auto (RBC) [Mass/Vol]Ordered By: Nemo Kennedy on 29-28-7718UXMY (RBC) [Mass/Vol]32.7 g/dL32.0-35.0F[facility] HospitalMCV Auto (RBC) [Entitic vol]Ordered By: Nemo Kennedy on 68-63-1128TJW (RBC) [Entitic vol]92.3 fL 80-100F[facility] HospitalMonocytes Auto (Bld) [#/Vol]Ordered By: Nemo Kennedy on 93-63-7167Amojurpeu (Bld) [#/Vol]0.6 10*3/uL0.0-0.8F[facility] HospitalMonocytes/100 WBC Auto (Bld)Ordered By: Nemo Kennedy on 70-73-9748Fpnmafcac/100 WBC (Bld)6.9 %.[facility] Neutrophils Auto (Bld) [#/Vol]Ordered By: Nemo Kennedy on 51-89-0665Ssbadwpdmpb (Bld) [#/Vol]6.4 10*3/uL1.8-7.7FMercy HospitalNeutrophils/100 WBC Auto (Bld)Ordered By: Nemo Kennedy on 53-86-8616Nudgidiiyfw/100 WBC (Bld)72.8 %.[facility] HospitalNo Panel InformationOrdered By: Nemo Kennedy on 80-69-3534Kardilheh GFR (CKD-EPI)> 60.0 mL/MinFirelands Regional Medical CenterPharmacy Creatinine Clearance (ChemN/AFMercy Hospital Nucleated erythrocytes [Presence] in Blood by Automated countOrdered By: Nemo Kennedy on 04-71-3712Qjvegoadc RBC Auto Ql (Bld)0.1 /100{WBC}0-0.5FMercy HospitalPlatelet mean volume Auto (Bld) [Entitic vol]Ordered By: Nemo Kennedy on 19-99-1203Snkhwevd mean volume (Bld) [Entitic vol]8.6 fL6.3-10.7 [facility] HospitalPlatelets Auto (Bld) [#/Vol]Ordered By: Nemo Kennedy on 59-66-5997Oouxixeul (Bld) [#/Vol]254 10*3/eH416-298QmzlflyrbFlower HospitalPotassium [Moles/volume] in Serum or PlasmaOrdered By: Nemo Kennedy on 08-07-4881Jwoczhphd [Moles/Vol]4.6 mmol/L3.5-5.1FMercy HospitalProtein [Mass/volume] in Serum or PlasmaOrdered By: Nemo Kennedy on 52-45-1749Guittdj [Mass/Vol]7.5 g/dL6.4-8.9[facility] HospitalRBC Auto (Bld) [#/Vol]Ordered By: Nemo Kennedy on 92-98-9818WVM (Bld) [#/Vol]4.30 10*6/uL3.60-5.00[facility] HospitalRespiratory pathogens DNA and RNA panel - Nasopharynx by ANTHONY with non-probe detectionOrdered By: Nemo Kennedy on 63-41-9618Aeabimtsajn pathogens DNA and RNA panel ANTHONY+non-probe (Nph) [facility] Centererum or plasma albumin/globulin mass ratio Ordered By: Nemo Kennedy on 08-13-7868Jxkrulm/Globulin [Mass ratio]1.1 {ratio} [facility] Centererum or plasma anion gap determinationOrdered By: Nemo eKnnedy on 42-31-4122Ilpiv gap [Moles/Vol]9.8 mmol/L6.0-15.0[facility] Centererum or plasma calcitriol measurement (mass/volume) Ordered By: Nemo Kennedy on 31,25-dihydroxyvitamin D3 [Mass/Vol]50.5 pg/mL24.8-81.5FMercy HospitalComment on above:Performed at: [facility] [id number] Director: Zeke Cowan MD, Phone: [phone] or plasma high density lipoprotein (HDL) cholesterol measurementOrdered By: Nemo Kennedy on 40-01-6617Yynignmwibl in HDL [Mass/Vol]36 mg/eE48-10GpfxhlivzFlower HospitalComment on above: HDL CHOL ATP-III CLASSIFICATION Cardiovascular RiskHDL > or equal to 60 mg/dL LOWHDL < 40 mg/dL HIGHSerum or plasma total cholesterol/high density lipoprotein (HDL) cholesterol mass ratOrdered By: Nemo Kennedy on 02-14-2023 Cholesterol.total/Cholesterol in HDL [Mass ratio]4.6 {ratio}<5.0[facility] Centerodium [Moles/volume] in Serum or PlasmaOrdered By: Nemo Kennedy on 63-00-7418Qxmehm [Moles/Vol]137 mmol/J266-989YibkhpnjhFlower HospitalThyrotropin [Units/volume] in Serum or PlasmaOrdered By: Nemo Kennedy on 30-46-2892HHB Qn2.82 m[IU]/L0.45-5.33[facility] HospitalThyroxine (T4) free [Mass/volume] in Serum or PlasmaOrdered By: Nemo Kennedy on 26-96-1870Ppzf T4 [Mass/Vol]0.88 ng/dL0.61-1.12[facility] HospitalTriglyceride [Mass/volume] in Serum or PlasmaOrdered By: Nemo Kennedy on 07-03-8751Ndtobnnlhitl [Mass/Vol]135 mg/dL0-149F[facility] HospitalComment on above:TRIG ATP III CLASSIFICATIONTRIG less than 150 mg/dL NormalTRIG 150-199 mg/dL Borderline highTRIG 200-500 mg/dL High TRIG greater than 500 mg/dL Very highStandard traceable to the Center for Disease Co nrtrol and Prevention (CDC) test method.Urea nitrogen [Mass/volume] in Serum or PlasmaOrdered By: Nemo Kennedy on 47-41-9974Ucqb nitrogen [Mass/Vol]12 mg/dL7-25 [facility] HospitalWBC Auto (Bld) [#/Vol]Ordered By: Nemo Kennedy on 38-41-6170KET (Bld) [#/Vol]8.8 10*3/uL3.8-11.6FMercy HospitalAlanine aminotransferase [Enzymatic activity/volume] in Serum or Plasma Ordered By: Cornell Gupta on 40-96-1574OOY [Catalytic activity/Vol]36 U/L7-52 [facility] HospitalAlbumin [Mass/volume] in Serum or Plasma by Bromocresol green (BCG) dye binding methoOrdered By: Cornell Gupta on 29-67-9588Smzfwvp BCG dye [Mass/Vol]4.1 g/dL3.5-5.7FMercy HospitalAlkaline phosphatase [Enzymatic activity/volume] in Serum or PlasmaOrdered By: Cornell Gupta on 25-68-4758JYU [Catalytic activity/Vol]66 U/L34-104 [facility] HospitalAspartate aminotransferase [Enzymatic activity/volume] in Serum or PlasmaOrdered By: Cornell Gupta on 56-77-2615MVN [Catalytic activity/Vol]22 U/J51-67JxjmpcangFlower HospitalBasophils Auto (Bld) [#/Vol]Ordered By: Cornell Gupta on 86-93-1160Asiirawgo (Bld) [#/Vol]0.1 10*3/uL0.0-0.2FMercy HospitalBasophils/100 WBC Auto (Bld)Ordered By: Cornell Gupta on 19-71-1887Sxzzbsanj/100 WBC (Bld)1.2 %. [facility] HospitalBilirubin.total [Mass/volume] in Serum or PlasmaOrdered By: Cornell Gupta on 01-96-3244Khahlyxjy [Mass/Vol]0.3 mg/dL 0.3-1.0[facility] HospitalCalcium [Mass/volume] in Serum or Plasma Ordered By: Cornell Gupta on 27-89-1314Qmtdlsl [Mass/Vol]9.6 mg/dL8.6-10.3 [facility] HospitalCarbon dioxide, total [Moles/volume] in Serum or PlasmaOrdered By: Cornell Gupta on 69-18-8005EH5 [Moles/Vol]33.2 mmol/L 21.0-31.0[facility] HospitalChloride [Moles/volume] in Serum or PlasmaOrdered By: Cornell Gupta on 75-94-5906Savxisdf [Moles/Vol]102 mmol/L 98-107F[facility] HospitalCreatinine [Mass/volume] in Serum or PlasmaOrdered By: Cornell Gupta on 52-25-0399Tpugixqptg [Mass/Vol]0.97 mg/dL 0.60-1.20[facility] HospitalEosinophils Auto (Bld) [#/Vol]Ordered By: Cornell Gupta on 66-49-6855Ugpdszxvaqk (Bld) [#/Vol]0.1 10*3/uL0.0-0.45 [facility] HospitalEosinophils/100 WBC Auto (Bld)Ordered By: Cornell Gupta on 41-88-7712Abuwjnstfsb/100 WBC (Bld)1.1 %.[facility] HospitalErythrocyte distribution width Auto (RBC) [Ratio]Ordered By: Cornell Gupta on 41-47-7745Ydpewgfozdl distribution width (RBC) [Ratio]15.6 % 11.9-15.3FMercy HospitalGlobulin Calc (S) [Mass/Vol]Ordered By: Cornell Gupta on 09-26-7029Tpebgcmi (S) [Mass/Vol]3.8 g/dLFlower HospitalGlucose [Mass/volume] in Serum or PlasmaOrdered By: Cornell Gupta on 53-66-5323Hddlziq [Mass/Vol]127 mg/sW95-865GrdkwcwbcFlower HospitalComment on above:ADA recommended reference rangeRandom Glucose Reference Range is dependent on time and content of last meal. Glucose of more than 200 mg/dL in a nonstressed, ambulatory subject supports the diagnosisof Diabetes Mellitus.Hematocrit Auto (Bld) [Volume fraction]Ordered By: Cornell Gupta on 27-13-3617Bwzidiarmr (Bld) [Volume fraction]40.8 %34.0-46.4FMercy HospitalHemoglobin [Mass/volume] in BloodOrdered By: Cornell Gupta on 12-95-1350Rswnqvyyjd (Bld) [Mass/Vol]13.3 g/dL11.8-15.4FMercy HospitalLeukocytes [#/volume] corrected for nucleated erythrocytes in Blood by Automated counOrdered By: Cornell Gupta on 10-26-2022 WBC corrected for nucl RBC Auto (Bld) [#/Vol]9.6 10*3/uL3.8-11.6FMercy HospitalLymphocytes Auto (Bld) [#/Vol]Ordered By: Cornell Gupta on 52-70-6830Xuafpilcini (Bld) [#/Vol]1.9 10*3/uL1.00-4.8F[facility] HospitalLymphocytes/100 WBC Auto (Bld)Ordered By: Cornell Gupta on 05-54-9638Huyniwlpwyq/100 WBC (Bld)19.4 %.[facility] HospitalH Auto (RBC) [Entitic mass]Ordered By: Cornell Gupta on 50-99-7604RFB (RBC) [Entitic mass]29.1 pg24.7-34.3FMercy HospitalMCHC Auto (RBC) [Mass/Vol]Ordered By: Cornell Gupta on 28-99-8145UFOC (RBC) [Mass/Vol]32.7 g/dL 32.0-35.0F[facility] HospitalMCV Auto (RBC) [Entitic vol]Ordered By: Cornell Gupta on 94-08-4775ZYR (RBC) [Entitic vol]88.8 qU31-898RiylqkfuxFlower HospitalMonocyte distribution width [Entitic volume] in Blood by AutomatedOrdered By: Cornell Gupta on 87-54-0236Gcsgzqkk distribution width Auto (Bld) [Entitic vol]20.21 %0.00-20.00[facility] Comment on above:For adults in ED, MDW > 20.0 may be associated with a higher risk of sepsis during the first 12 hrs of hospital admissionMonocytes Auto (Bld) [#/Vol]Ordered By: Cornell Gupta on 68-94-0408Njajujngm (Bld) [#/Vol]0.7 10*3/uL0.0-0.8F[facility] HospitalMonocytes/100 WBC Auto (Bld) Ordered By: Cornell Gupta on 39-11-1279Trayxqsdv/100 WBC (Bld)6.8 %.[facility] HospitalNeutrophils Auto (Bld) [#/Vol]Ordered By: Cornell Gupta on 46-87-1788Jrgbisxqqmh (Bld) [#/Vol]6.9 10*3/uL1.8-7.7FMercy HospitalNeutrophils/100 WBC Auto (Bld)Ordered By: Cornell Gupta on 81-88-3660Ijhqkrxiail/100 WBC (Bld)71.5 %.[facility] HospitalNo Panel InformationOrdered By: Cornell Gupta on 72-86-1971Vmdpvhgfl GFR (CKD-EPI) > 60.0 mL/MinFlower HospitalLevetiracetam (Keppra) Level17.0 ug/mL10.0-40.0Flower HospitalComment on above:Performed at: [facility] [address] [id number] Director: Zeke Cowan MD, Phone: [phone] Creatinine Clearance (Chem75.14 [facility] HospitalNucleated erythrocytes [Presence] in Blood by Automated countOrdered By: Cornell Gupta on 80-00-9679Zkftnsvtx RBC Auto Ql (Bld)0.0 /100{WBC}0-0.5FMercy HospitalPlatelet mean volume Auto (Bld) [Entitic vol]Ordered By: Cornell Gupta on 59-94-6706Nlwivgop mean volume (Bld) [Entitic vol]8.4 fL6.3-10.7FMercy Hospital Platelets Auto (Bld) [#/Vol]Ordered By: Cornell Gupta on 92-85-1485Xydbsluko (Bld) [#/Vol]270 10*3/aN872-363KvzkjhtrsFlower HospitalPotassium [Moles/volume] in Serum or PlasmaOrdered By: Cornell Gupta on 10-26-2022 Potassium [Moles/Vol]4.5 mmol/L3.5-5.1FMercy HospitalProlactin [Mass/volume] in Serum or PlasmaOrdered By: Cornell Gupta on 10-26-2022 Prolactin [Mass/Vol]22.84 ng/mL3.34-26.72[facility] Protein [Mass/volume] in Serum or PlasmaOrdered By: Cornell Gupta on 10-26-2022 Protein [Mass/Vol]7.9 g/dL6.4-8.9[facility] HospitalRBC Auto (Bld) [#/Vol]Ordered By: Cornell Gupta on 58-59-0071QQV (Bld) [#/Vol]4.59 10*6/uL 3.60-5.00[facility] Centererum or plasma albumin/globulin mass ratioOrdered By: Cornell Gupta on 24-56-7481Afpubfr/Globulin [Mass ratio]1.1 {ratio}[facility] Centererum or plasma anion gap determination Ordered By: Cornell Gupta on 87-13-0300Jqdva gap [Moles/Vol]8.3 mmol/L6.0-15.0 [facility] Centerodium [Moles/volume] in Serum or PlasmaOrdered By: Cornell Gupta on 53-70-3445Mdkjzl [Moles/Vol]139 mmol/H448-995GnzmrjnqfFlower HospitalUrea nitrogen [Mass/volume] in Serum or PlasmaOrdered By: Cornell Gupta on 63-27-7665Exsu nitrogen [Mass/Vol]12 mg/dL7-25F[facility] HospitalWBC Auto (Bld) [#/Vol]Ordered By: Cornell Gupta on 06-60-4531NXU (Bld) [#/Vol]9.6 10*3/uL3.8-11.6FMercy Hospital Glucose Glucometer (BldC) [Mass/Vol]Ordered By: Tiesha De on 07-08-2022 Glucose [Mass/Vol]146 mg/dLFlower HospitalComment on above: Random Glucose Reference Range is dependent on time and content of last meal. Glucose of more than 200 mg/dL in a nonstressed, ambulatory subject supports the diagnosis of Diabetes Mellitus.No Panel InformationOrdered By: León Shepherd on 78-34-9378Nubyrzd Glucose CommentGlu2: cleaned meterFlower HospitalCalcium [Mass/volume] in Serum or PlasmaOrdered By: Aryan Lindsay on 38-10-5174Ykdkmfy [Mass/Vol]8.8 mg/dL8.6-10.3FMercy HospitalCarbon dioxide, total [Moles/volume] in Serum or PlasmaOrdered By: Aryan Lindsay on 60-77-2188OO0 [Moles/Vol]39.2 mmol/L21.0-31.0[facility] HospitalChloride [Moles/volume] in Serum or PlasmaOrdered By: Aryan Lindsay on 92-97-1610Bgdwrbkp [Moles/Vol]98 mmol/W24-928GrkajpnpvFlower HospitalCreatinine [Mass/volume] in Serum or PlasmaOrdered By: Aryan Lindsay on 95-24-1122Mizmgnkipz [Mass/Vol]0.77 mg/dL0.60-1.20 [facility] HospitalGlucose [Mass/volume] in Serum or PlasmaOrdered By: Aryan Lindsay on 14-91-9451Twpgbjf [Mass/Vol]147 mg/qZ74-340 [facility] HospitalComment on above:ADA recommended reference rangeRandom Glucose Reference Range is dependent on time and content of last meal. Glucose of more than 200 mg/dL in a nonstressed, ambulatory subject supports the diagnosisof Diabetes Mellitus.No Panel InformationOrdered By: Aryan Lindsay on 58-17-4792Quvttwbib GFR (CKD-EPI)> 60.0 mL/MinFlower HospitalPharmacy Creatinine Clearance (Chem97.42F[facility] HospitalPotassium [Moles/volume] in Serum or PlasmaOrdered By: Aryan Lindsay on 04-74-2093Nqjvgerwa [Moles/Vol]4.4 mmol/L3.5-5.1 [facility] Centererum or plasma anion gap determinationOrdered By: Aryan Lindsay on 12-65-2980Ztdcc gap [Moles/Vol]7.2 mmol/L6.0-15.0 [facility] Centerodium [Moles/volume] in Serum or PlasmaOrdered By: Aryan Lindsay on 68-46-2811Gqgxor [Moles/Vol]140 mmol/O447-548 [facility] HospitalUrea nitrogen [Mass/volume] in Serum or Plasma Ordered By: Aryan Lindsay on 80-57-5240Vnnj nitrogen [Mass/Vol]14 mg/dL 7-25F[facility] HospitalBasophils Auto (Bld) [#/Vol]Ordered By: Aryan Lindsay on 35-43-5119Pxyntvseu (Bld) [#/Vol]0.1 10*3/uL0.0-0.2 [facility] HospitalBasophils/100 WBC Auto (Bld)Ordered By: Aryan Lindsay on 85-53-7114Yqaaovqfd/100 WBC (Bld)1.1 %.[facility] HospitalEosinophils Auto (Bld) [#/Vol]Ordered By: Aryan Lindsay on 67-10-3086Ppdepcvwxzr (Bld) [#/Vol]0.3 10*3/uL0.0-0.45F[facility] HospitalEosinophils/100 WBC Auto (Bld)Ordered By: Aryan Lindsay on 75-18-4322Lunnmbgzwqz/100 WBC (Bld)3.1 %.[facility] HospitalErythrocyte distribution width Auto (RBC) [Ratio]Ordered By: Aryan Lindsay on 62-44-3983Xqsezapryge distribution width (RBC) [Ratio]17.3 % 11.9-15.3FMercy HospitalHematocrit Auto (Bld) [Volume fraction]Ordered By: Aryan Lindsay on 76-48-9223Lhrdweynnw (Bld) [Volume fraction]33.6 %34.0-46.4FMercy HospitalHemoglobin [Mass/volume] in BloodOrdered By: Aryan Lindsay on 94-47-1889Jrztewxhfg (Bld) [Mass/Vol]10.6 g/dL11.8-15.4FMercy HospitalLeukocytes [#/volume] corrected for nucleated erythrocytes in Blood by Automated coun Ordered By: Aryan Lindsay on 98-23-5365IVS corrected for nucl RBC Auto (Bld) [#/Vol]9.7 10*3/uL3.8-11.6FMercy HospitalLymphocytes Auto (Bld) [#/Vol]Ordered By: Aryan Lindsay on 37-71-0131Yeguxrvcdcf (Bld) [#/Vol]1.0 10*3/uL1.00-4.8Flower HospitalLymphocytes/100 WBC Auto (Bld)Ordered By: Aryan Lindsay on 04-37-9852Epcailgtudn/100 WBC (Bld)9.9 %.[facility] HospitalMCH Auto (RBC) [Entitic mass] Ordered By: Aryan Lindsay on 29-79-1434BWH (RBC) [Entitic mass]28.5 pg 24.7-34.3FMercy HospitalMCHC Auto (RBC) [Mass/Vol]Ordered By: Aryan Lindsay on 09-59-2536OMXN (RBC) [Mass/Vol]31.6 g/dL32.0-35.0 [facility] HospitalMCV Auto (RBC) [Entitic vol]Ordered By: Aryan Lindsay on 75-99-6249LDR (RBC) [Entitic vol]90.4 zT25-401UnquaylhwFlower HospitalMonocytes Auto (Bld) [#/Vol]Ordered By: Arayn Lindsay on 76-57-5911Bebfitmjg (Bld) [#/Vol]0.6 10*3/uL0.0-0.8F[facility] HospitalMonocytes/100 WBC Auto (Bld)Ordered By: Aryan Lindsay on 54-32-1480Vjhsourkh/100 WBC (Bld)6.5 %.[facility] HospitalNeutrophils Auto (Bld) [#/Vol]Ordered By: Aryan Lindsay on 50-49-6299Kwpbtxvdsnr (Bld) [#/Vol]7.7 10*3/uL1.8-7.7FMercy HospitalNeutrophils/100 WBC Auto (Bld)Ordered By: Aryan Lindsay on 46-08-9202Xruvhvigeyf/100 WBC (Bld)79.4 %.[facility] Nucleated erythrocytes [Presence] in Blood by Automated countOrdered By: Aryan Lindsay on 15-75-8413Oaotsfsco RBC Auto Ql (Bld)0.1 /100{WBC}0-0.5 [facility] HospitalPlatelet mean volume Auto (Bld) [Entitic vol] Ordered By: Aryan Lindsay on 48-05-9981Sdedvkxf mean volume (Bld) [Entitic vol]9.4 fL6.3-10.7FMercy HospitalPlatelets Auto (Bld) [#/Vol]Ordered By: Aryan Lindsay on 07-06-6295Lsixnyusc (Bld) [#/Vol]259 10*3/iG161-292QfwfdtiqgFlower HospitalRBC Auto (Bld) [#/Vol]Ordered By: Aryan Lindsay on 99-86-3305DXN (Bld) [#/Vol]3.71 10*6/uL3.60-5.00 [facility] HospitalWBC Auto (Bld) [#/Vol]Ordered By: Aryan Lindsay on 29-41-3138QIZ (Bld) [#/Vol]9.7 10*3/uL3.8-11.6FMercy HospitalGlucose Glucometer (BldC) [Mass/Vol]Ordered By: Tiesha De on 36-45-4664Vcsthxv [Mass/Vol]168 mg/dLFlower HospitalComment on above:Random Glucose Reference Range is dependent on time and content of last meal. Glucose of more than 200 mg/dL in a nonstressed, ambulatory subject supports the diagnosis of Diabetes Mellitus.Laboratory - Chemistry and Chemistry - challengeOrdered By: Tiesha De on 67-02-4201IT9 [Moles/Vol]39.5 mmol/L 23.0-27.0F[facility] HospitalHCO3 (Bld) [Moles/Vol]37.6 mmol/L 23.0-29.0[facility] HospitalNo Panel InformationOrdered By: Tiesha De on 29-55-5708Sqvptgfw Blood Base Wukdnv85.3 mmol/L-3.0-3.0[facility] HospitalArterial Blood Oxygen Content7.0 mmol/L6.6-9.7FMercy HospitalArterial Blood Oxygen Zncrrogeqv62.1 %95.0-100.0F[facility] HospitalArterial Blood Partial Pressure CO264.5 mm[Hg]35.0-45.0 [facility] HospitalArterial Blood Partial Pressure O285.2 mm[Hg] 80.0-100.0F[facility] HospitalArterial Blood pH7.387.35-7.45 [facility] HospitalBlood Gas Critical ValueSee commentFlower HospitalComment on above:Critical Value called on: 06/28/2022 at 20:03Blood Gas Sample SiteLeft radialFlower HospitalBlood Gas Ventilator ModeCpapFlower HospitalFiO240 %Flower HospitalNo Panel InformationOrdered By: Tiesha De on 06-27-2022 Bedside Glucose CommentGlu2: cleaned [facility] Alanine aminotransferase [Enzymatic activity/volume] in Serum or PlasmaOrdered By: Hugh Craft on 56-27-8923DGJ [Catalytic activity/Vol]37 U/L7-52F[facility] HospitalAlbumin [Mass/volume] in Serum or Plasma by Bromocresol green (BCG) dye binding methoOrdered By: Hugh Craft on 74-43-9768Hoipxbh BCG dye [Mass/Vol]3.4 g/dL3.5-5.7FMercy HospitalAlkaline phosphatase [Enzymatic activity/volume] in Serum or PlasmaOrdered By: Hugh Craft on 26-69-6645NYA [Catalytic activity/Vol]64 U/Y80-162ZvbwqbwqgFlower HospitalAspartate aminotransferase [Enzymatic activity/volume] in Serum or PlasmaOrdered By: Hugh Craft on 01-84-1772BVX [Catalytic activity/Vol]17 U/L 13-39F[facility] HospitalBasophils Auto (Bld) [#/Vol]Ordered By: Hugh Craft on 40-61-5552Sdiabhihh (Bld) [#/Vol]0.1 10*3/uL0.0-0.2FMercy HospitalBasophils/100 WBC Auto (Bld)Ordered By: Hugh Craft on 61-51-6785Qckcfbvzb/100 WBC (Bld)0.8 %.[facility] Bilirubin.total [Mass/volume] in Serum or PlasmaOrdered By: Hugh Craft on 52-22-5214Uzlanukyf [Mass/Vol]0.6 mg/dL0.3-1.0[facility] Calcium [Mass/volume] in Serum or PlasmaOrdered By: Hugh Craft on 06-24-2022 Calcium [Mass/Vol]8.3 mg/dL8.6-10.3FMercy HospitalCarbon dioxide, total [Moles/volume] in Serum or PlasmaOrdered By: Hugh Craft on 80-23-6368OJ1 [Moles/Vol]33.5 mmol/L21.0-31.0[facility] Chloride [Moles/volume] in Serum or PlasmaOrdered By: Hugh Craft on 14-08-2979Izklfmpk [Moles/Vol]98 mmol/R86-978UexjninxkFlower Hospital Creatinine [Mass/volume] in Serum or PlasmaOrdered By: Hugh Craft on 92-51-2365Bcbrmcuvut [Mass/Vol]0.82 mg/dL0.60-1.20F[facility] HospitalEosinophils Auto (Bld) [#/Vol]Ordered By: Hugh Craft on 06-24-2022 Eosinophils (Bld) [#/Vol]0.1 10*3/uL0.0-0.45[facility] Eosinophils/100 WBC Auto (Bld)Ordered By: Hugh Craft on 06-24-2022 Eosinophils/100 WBC (Bld)0.8 %.[facility] HospitalErythrocyte distribution width Auto (RBC) [Ratio]Ordered By: Hugh Craft on 06-24-2022 Erythrocyte distribution width (RBC) [Ratio]16.8 %11.9-15.3FMercy HospitalGlobulin Calc (S) [Mass/Vol]Ordered By: Hugh Craft on 71-93-8175Gogvcaun (S) [Mass/Vol]3.5 g/dLFlower Hospital Glucose [Mass/volume] in Serum or PlasmaOrdered By: Hugh Craft on 06-24-2022 Glucose [Mass/Vol]173 mg/lG52-440OwseosmktFlower HospitalComment on above:ADA recommended reference rangeRandom Glucose Reference Range is dependent on time and content of last meal. Glucose of more than 200 mg/dL in a nonstressed, ambulatory subject supports the diagnosisof Diabetes Mellitus. Hematocrit Auto (Bld) [Volume fraction]Ordered By: Hugh Craft on 06-24-2022 Hematocrit (Bld) [Volume fraction]37.5 %34.0-46.4FMercy HospitalHemoglobin [Mass/volume] in BloodOrdered By: Hugh Craft on 06-24-2022 Hemoglobin (Bld) [Mass/Vol]11.9 g/dL11.8-15.4FMercy Hospital Leukocytes [#/volume] corrected for nucleated erythrocytes in Blood by Automated counOrdered By: Hugh Craft on 15-63-4885FVF corrected for nucl RBC Auto (Bld) [#/Vol]13.2 10*3/uL3.8-11.6FMercy HospitalLymphocytes Auto (Bld) [#/Vol]Ordered By: Hugh Craft on 82-56-1805Llbadilrtis (Bld) [#/Vol]0.8 10*3/uL1.00-4.8F[facility] HospitalLymphocytes/100 WBC Auto (Bld)Ordered By: Hugh Craft on 49-31-8640Nlgsazebvoq/100 WBC (Bld)5.8 %. [facility] HospitalMCH Auto (RBC) [Entitic mass]Ordered By: Hugh Craft on 60-54-6444UHJ (RBC) [Entitic mass]28.9 pg24.7-34.3FMercy HospitalMCHC Auto (RBC) [Mass/Vol]Ordered By: Hugh Craft on 06-24-2022 MCHC (RBC) [Mass/Vol]31.8 g/dL32.0-35.0F[facility] HospitalMCV Auto (RBC) [Entitic vol]Ordered By: Hugh Craft on 71-11-3281OSX (RBC) [Entitic vol]90.9 lL70-050ScdsdjndiFlower HospitalMonocytes Auto (Bld) [#/Vol] Ordered By: Hugh Craft on 01-31-3865Vqfmybkim (Bld) [#/Vol]0.6 10*3/uL0.0-0.8 [facility] HospitalMonocytes/100 WBC Auto (Bld)Ordered By: Hugh Craft on 60-48-0633Dztlkjfbu/100 WBC (Bld)4.2 %.[facility] HospitalNeutrophils Auto (Bld) [#/Vol]Ordered By: Hugh Craft on 06-24-2022 Neutrophils (Bld) [#/Vol]11.7 10*3/uL1.8-7.7FMercy Hospital Neutrophils/100 WBC Auto (Bld)Ordered By: Hugh Craft on 06-24-2022 Neutrophils/100 WBC (Bld)88.4 %.[facility] HospitalNo Panel InformationOrdered By: Hugh Craft on 29-83-4732Wkuemvnto GFR (CKD-EPI)> 60.0 mL/MinFlower HospitalPharmacy Creatinine Clearance (Chem91.13 [facility] HospitalNucleated erythrocytes [Presence] in Blood by Automated countOrdered By: Hugh Craft on 46-35-7015Erxrodpkp RBC Auto Ql (Bld)0.1 /100{WBC}0-0.5FMercy HospitalPlatelet mean volume Auto (Bld) [Entitic vol]Ordered By: Hugh Craft on 83-62-8669Wmnhzqha mean volume (Bld) [Entitic vol]8.9 fL6.3-10.7FMercy Hospital Platelets Auto (Bld) [#/Vol]Ordered By: Hugh Craft on 94-83-6615Pmgdhujja (Bld) [#/Vol]215 10*3/tK862-699SbnhuclvqFlower HospitalPotassium [Moles/volume] in Serum or PlasmaOrdered By: Hugh Craft on 06-24-2022 Potassium [Moles/Vol]4.5 mmol/L3.5-5.1[facility] CenterProtein [Mass/volume] in Serum or PlasmaOrdered By: Hugh Craft on 84-60-8074Ueihatd [Mass/Vol]6.9 g/dL6.4-8.9F[facility] HospitalRBC Auto (Bld) [#/Vol] Ordered By: Hugh Craft on 44-57-5708RKE (Bld) [#/Vol]4.12 10*6/uL3.60-5.00 [facility] Centererum or plasma albumin/globulin mass ratio Ordered By: Hugh Craft on 42-46-1161Ucifnqh/Globulin [Mass ratio]1.0 {ratio} [facility] Centererum or plasma anion gap determinationOrdered By: Hugh Craft on 39-44-6751Lvmog gap [Moles/Vol]8.0 mmol/L6.0-15.0[facility] Centerodium [Moles/volume] in Serum or PlasmaOrdered By: Hugh Craft on 37-99-7668Pyvxmw [Moles/Vol]135 mmol/R408-529CnjvqgfdlFlower HospitalUrea nitrogen [Mass/volume] in Serum or PlasmaOrdered By: Hugh Craft on 41-77-8587Uzcr nitrogen [Mass/Vol]12 mg/dL7-25Flower HospitalWBC Auto (Bld) [#/Vol]Ordered By: Hugh Craft on 06-27-3318HLR (Bld) [#/Vol]13.2 10*3/uL3.8-11.6FMercy HospitalAmmonia [Moles/volume] in PlasmaOrdered By: Aryan Villarreal on 76-84-0494Hntijce (P) [Moles/Vol]60 umol/L82-99GtebbephpFlower HospitalAnisocytosis LM Ql (Bld)Ordered By: Abel Deleon on 15-26-5064Agzurvaqjmpz Ql (Bld)SlightFlower HospitalAutomated erythrocytes count in urine sediment (number/area)Ordered By: Aryan Villarreal on 79-48-2683PPE Auto (Urine sed) [#/Area]0-1 [HPF]0-4FMercy HospitalAutomated leukocytes count in urine sediment (number/area)Ordered By: Aryan Villarreal on 92-44-6398PUQ Auto (Urine sed) [#/Area]0-1 [HPF]0-4FMercy HospitalBilirubin Test strip Ql (U)Ordered By: Aryan Villarreal on 58-44-3527Vbgpxmkuc Ql (U) NegativeNegativeFlower HospitalBilirubin.direct [Mass/volume] in Serum or PlasmaOrdered By: Aryan Villarreal on 81-71-4745Hswwmaxlk.direct [Mass/Vol]0.10 mg/dL0.03-0.18FMercy HospitalColor Auto (U) Ordered By: Aryan Villarreal on 43-82-8335Cramr (U)YellowYellowFlower HospitalEosinophils/100 WBC Manual cnt (Bld)Ordered By: Abel Deleon on 53-44-7545Cqrftrppnzl/100 WBC (Bld)2 %1-3FMercy HospitalGiant platelets/100 leukocytes [Ratio] in Blood by Manual countOrdered By: Abel Deleon on 20-94-9500Kfwzy platelets/100 WBC Manual cnt (Bld) [Ratio]1 /100{WBC}Flower HospitalKetones Auto test strip (U) [Mass/Vol] Ordered By: Aryan Villarreal on 92-04-1435Mvehuyt (U) [Mass/Vol]Negative NegativeFlower HospitalLaboratory - Chemistry and Chemistry - challengeOrdered By: Hugh Craft on 27-35-8357AW6 [Moles/Vol]30.5 mmol/L 24.0-29.0Flower HospitalHCO3 (Bld) [Moles/Vol]28.6 mmol/L 23.0-29.0Flower HospitalCO2 [Moles/Vol]31.9 mmol/L23.0-27.0 [facility] HospitalHCO3 (Bld) [Moles/Vol]30.0 mmol/L23.0-29.0 [facility] HospitalLaboratory - UrinalysisOrdered By: Aryan Villarreal on 40-54-3645Mheabii casts LM Ql (Urine sed)None seen [LPF]0-8Flower HospitalLymphocytes/100 WBC Manual cnt (Bld)Ordered By: Abel Adrienne on 04-50-5367Qwlrllohhgn/100 WBC (Bld)9 %18-42Flower HospitalMetamyelocytes/100 WBC Manual cnt (Bld)Ordered By: Abel Adrienne on 99-46-9863Owhumobofalcvh/100 WBC (Bld)1 %0-0[facility] Monocytes/100 WBC Manual cnt (Bld)Ordered By: Abel Adrienne on 06-23-2022 Monocytes/100 WBC (Bld)12 %2-11F[facility] HospitalMyelocytes/100 WBC Manual cnt (Bld)Ordered By: [facility] Centeram on 88-97-9133Iymqvrvagp/100 WBC (Bld)1 %0-0F[facility] HospitalNitrite Test strip Ql (U)Ordered By: Aryan Villarreal on 00-74-2962Easddwv Ql (U)NegativeNegativeFlower HospitalNo Panel InformationOrdered By: Hugh Craft on 74-16-6321Ihdrq Gas Critical ValueSee commentFlower Hospital Comment on above:Critical Value called on: 06/23/2022 at 21:35Blood Gas Sample SiteVenousFlower HospitalFiO240 %Flower HospitalVenous Blood Base Excess0.5 mmol/L-3.0-3.0F[facility] HospitalVenous Blood Oxygen Content8.0 mmol/L6.6-9.7FMercy HospitalVenous Blood Oxygen Vluesdkqzk49.3 %73.0-76.0Flower HospitalVenous Blood Partial Pressure CO261.1 mm[Hg]38.0-50.0[facility] HospitalVenous Blood Partial Pressure O259.1 mm[Hg]35.0-45.0Flower HospitalVenous Blood pH7.297.32-7.43Flower HospitalArterial Blood Base Excess1.9 mmol/L-3.0-3.0[facility] HospitalArterial Blood Oxygen Content8.8 mmol/L6.6-9.7FMercy HospitalArterial Blood Oxygen Ylzryfmfig88.4 %95.0-100.0F[facility] HospitalArterial Blood Partial Pressure CO262.2 mm[Hg]35.0-45.0[facility] HospitalArterial Blood Partial Pressure O2128.2 mm[Hg]80.0-100.0F[facility] HospitalArterial Blood pH7.307.35-7.45F[facility] HospitalBlood Gas PEEP7 zzB4TOwetzczxhFlower HospitalPlatelet adequacy [Presence] in Blood by Light microscopyOrdered By: Abel Deleon on 06-23-2022 Platelets LM Ql (Bld)NormalNormProMedica Toledo HospitalPlatelet morphology finding [Identifier] in BloodOrdered By: Abel Deleon on 06-23-2022 Platelet morphology finding Nom (Bld)NormalNormProMedica Toledo HospitalPolychromasia [Presence] in Blood by Light microscopyOrdered By: Abel Deleon on 01-29-7632Fxxbcvgjbnvjq LM Ql (Bld)SlightFlower HospitalProtein Auto test strip (U) [Mass/Vol]Ordered By: Aryan Villarreal on 58-79-4431Tclvwij (U) [Mass/Vol]NegativeNegativeFlower HospitalRBC morphologyOrdered By: Abel Deleon on 86-41-8423RBM morphology finding Nom (Bld)N/AFAultman Orrville Hospitalegmented neutrophils/100 WBC Manual cnt (Bld)Ordered By: Abel Deleon on 08-26-9199Wvpihboxq neutrophils/100 WBC (Bld)76 %50-70[facility] Medical Centererum or plasma non- glucuronidated bilirubin measurement (mass/volume)Ordered By: Aryan Villarreal on 79-92-5562Esdpmtktl.indirect [Mass/Vol]0.4 mg/dLFisher-Titus Medical Centerpecific gravity Auto test strip (U) [Rel density]Ordered By: Aryan Villarreal on 03-85-0780Cfkkjiax gravity (U) [Rel density]1.016 1.001-1.030[facility]itus Medical Centerquamous epithelial cells detection in urine sediment by light microscopyOrdered By: Aryan Villarreal on 47-06-3070Fquziwnhjh cells.squamous LM Ql (Urine sed)None seen [HPF]0-2FMercy HospitalThyrotropin [Units/volume] in Serum or PlasmaOrdered By: Aryan Villarreal on 44-74-2235RTD Qn1.36 m[IU]/L0.45-5.33F[facility] HospitalUrine bacteria detection by automated methodOrdered By: Aryan Villarreal on 62-36-8000Rtuboceo Auto Ql (U)None seenNone SeenFlower HospitalUrine clarity by refractometry automatedOrdered By: Aryan Villarreal on 51-23-7726Stghgrc Refractometry automated (U)ClearClear F[facility] HospitalUrine culture routineOrdered By: Abel Deleon on 23-03-1245Mnkavaum identified Cx Nom (U)2 DaysFlower HospitalUrine glucose measurement by automated test strip (mass/volume)Ordered By: Aryan Villarreal on 69-65-2269Vfvruzj Auto test strip (U) [Mass/Vol]Normal mg/dLNoSamaritan HospitalUrine hemoglobin detection by automated test stripOrdered By: Aryan Villarreal on 73-30-2353Ewdaalsyjd Auto test strip Ql (U)TraceNegativeFlower HospitalUrine leukocyte esterase detection by automated test stripOrdered By: Aryan Villarreal on 09-24-6309Uhyznmdym esterase Auto test strip Ql (U)3+NegativeFlower HospitalUrobilinogen Auto test strip (U) [Mass/Vol]Ordered By: Aryan Villarreal on 29-03-7493Hpenbtnsarvr (U) [Mass/Vol]Normal mg/dLNormProMedica Toledo HospitalVitamin B12 ser/plasOrdered By: Aryan Villarreal on 73-06-9979Jjmnqvhkp (Vitamin B12) [Mass/Vol]561 pg/fF336-591UknuismabFlower HospitalpH Auto test strip (U)Ordered By: Aryan Villarreal on 74-81-8618jX (U)5.5 [pH]5.0-9.0F[facility] HospitalBacterial blood cultureOrdered By: Swapnil Quigley on 00-82-1994Lhazxwun identified Cx Nom (Bld)NO GROWTH 5 DAYSFlower HospitalBasophils Auto (Bld) [#/Vol]Ordered By: Swapnil Quigley on 03-94-0426Lkrxbfqhm (Bld) [#/Vol]0.2 10*3/uL0.0-0.2FMercy HospitalBasophils/100 WBC Auto (Bld) Ordered By: Swapnil Quigley on 59-09-0377Lkzdtzudk/100 WBC (Bld)1.3 %.[facility] HospitalCOVID CepheidOrdered By: Swapnil Quigley on 06-22-2022 SARS-CoV-2 (COVID-19) Ab IA QlNegativeNegativeFlower Hospital Comment on above:This is a duplicate Cepheid Xpert Xpress CoV-2/Flu/RSV Plus RNA by RT-PCR result to be used for statistical tracking purpose only.SARS-CoV-2 (COVID-19) RNA ANTHONY+probe Ql (Unsp spec)F[facility] HospitalCalcium [Mass/volume] in Serum or PlasmaOrdered By: Swapnil Quigley on 06-22-2022 Calcium [Mass/Vol]9.4 mg/dL8.6-10.3FMercy HospitalCarbon dioxide, total [Moles/volume] in Serum or PlasmaOrdered By: Swapnil Quigley on 17-91-2177GP5 [Moles/Vol]31.1 mmol/L21.0-31.0[facility] Chloride [Moles/volume] in Serum or PlasmaOrdered By: Swapnil Quigley on 92-87-0579Pkzotzew [Moles/Vol]99 mmol/D19-269XyrvelapvFlower Hospital Creatinine [Mass/volume] in Serum or PlasmaOrdered By: Swapnil Quigley on 73-38-7967Sbyqffgoay [Mass/Vol]0.92 mg/dL0.60-1.20F[facility] HospitalEosinophils Auto (Bld) [#/Vol]Ordered By: Swapnil Quigley on 06-22-2022 Eosinophils (Bld) [#/Vol]0.1 10*3/uL0.0-0.45[facility] Eosinophils/100 WBC Auto (Bld)Ordered By: Swapnil Quigley on 06-22-2022 Eosinophils/100 WBC (Bld)1.0 %.[facility] HospitalErythrocyte distribution width Auto (RBC) [Ratio]Ordered By: Swapnil Quigley on 06-22-2022 Erythrocyte distribution width (RBC) [Ratio]17.2 %11.9-15.3FMercy HospitalGlucose [Mass/volume] in Serum or PlasmaOrdered By: Swapnil Quigley on 28-90-2741Mtpvvug [Mass/Vol]132 mg/tE84-988NlwupffarFlower HospitalComment on above:ADA recommended reference rangeRandom Glucose Reference Range is dependent on time and content of last meal. Glucose of more than 200 mg/dL in a nonstressed, ambulatory subject supports the diagnosisof Diabetes Mellitus.Hematocrit Auto (Bld) [Volume fraction]Ordered By: Swapnil Quigley on 82-65-2217Qisyeyxhvi (Bld) [Volume fraction]43.8 %34.0-46.4FMercy HospitalHemoglobin [Mass/volume] in BloodOrdered By: Swapnil Quigley on 26-45-5970Cdrcyvftvn (Bld) [Mass/Vol]14.0 g/dL11.8-15.4FMercy HospitalLaboratory - Chemistry and Chemistry - challengeOrdered By: Swapnil Quigley on 58-48-7449QO3 [Moles/Vol]33.0 mmol/L24.0-29.0F[facility] HospitalHCO3 (Bld) [Moles/Vol]31.2 mmol/L23.0-29.0F[facility] HospitalLactate [Moles/volume] in Serum or PlasmaOrdered By: Swapnil Quigley on 91-15-1647Rjppttl [Moles/Vol]1.1 mmol/L0.5-2.2FMercy HospitalLeukocytes [#/volume] corrected for nucleated erythrocytes in Blood by Automated counOrdered By: Swapnil Quigley on 45-06-0341HYG corrected for nucl RBC Auto (Bld) [#/Vol]14.0 10*3/uL3.8-11.6 F[facility] HospitalLymphocytes Auto (Bld) [#/Vol]Ordered By: Swapnil Quigley on 32-05-8367Cqlkfjjgbpo (Bld) [#/Vol]2.0 10*3/uL1.00-4.8 [facility] HospitalLymphocytes/100 WBC Auto (Bld)Ordered By: Swapnil Quigley on 76-05-9420Uesnaqsupwf/100 WBC (Bld)14.4 %.[facility] HospitalH Auto (RBC) [Entitic mass]Ordered By: Swapnil Quigley on 21-21-5266CMI (RBC) [Entitic mass]28.8 pg24.7-34.3FMercy HospitalMCHC Auto (RBC) [Mass/Vol]Ordered By: Swapnil Quigley on 35-63-9964LFCY (RBC) [Mass/Vol]32.0 g/dL32.0-35.0F[facility] HospitalMCV Auto (RBC) [Entitic vol]Ordered By: Swapnil Quigley on 54-56-7408RJP (RBC) [Entitic vol]90.1 bB52-281GbklpnzkbFlower HospitalMonocyte distribution width [Entitic volume] in Blood by AutomatedOrdered By: Swapnil Quigley on 06-22-2022 Monocyte distribution width Auto (Bld) [Entitic vol]22.60 %0.00-20.00Flower HospitalComment on above:For adults in ED, MDW > 20.0 may be associated with a higher risk of sepsis during the first 12 hrs of hospital admissionMonocytes Auto (Bld) [#/Vol]Ordered By: Swapnil Quigley on 06-22-2022 Monocytes (Bld) [#/Vol]0.9 10*3/uL0.0-0.8[facility] Monocytes/100 WBC Auto (Bld)Ordered By: Swapnil Quigley on 06-22-2022 Monocytes/100 WBC (Bld)6.2 %.[facility] HospitalNatriuretic peptide B [Mass/Vol]Ordered By: Swapnil Quigley on 39-23-2112Ezhrphtzstg peptide B (Bld) [Mass/Vol]32.0 pg/mL5-100[facility] Neutrophils Auto (Bld) [#/Vol]Ordered By: Swapnil Quigley on 06-22-2022 Neutrophils (Bld) [#/Vol]10.8 10*3/uL1.8-7.7FMercy Hospital Neutrophils/100 WBC Auto (Bld)Ordered By: Swapnil Quigley on 06-22-2022 Neutrophils/100 WBC (Bld)77.1 %.[facility] HospitalNo Panel InformationOrdered By: Swapnil Quigley on 82-31-1153Gncst Gas Critical ValueSee [facility] Medical CenterComment on above:Critical Value called on: 06/22/2022 at 20:08Blood Gas Sample SiteUmbilical cordFlower HospitalFiO221 %Flower HospitalVenous Blood Base Excess 3.9 mmol/L-3.0-3.0Flower HospitalVenous Blood Oxygen Content 8.9 mmol/L6.6-9.7FMercy HospitalVenous Blood Oxygen Saturation 93.7 %73.0-76.0Flower HospitalVenous Blood Partial Pressure CO257.7 mm[Hg]38.0-50.0F[facility] HospitalVenous Blood Partial Pressure O272.8 mm[Hg]35.0-45.0F[facility] HospitalVenous Blood pH 7.357.32-7.43F[facility] HospitalEstimated GFR (CKD-EPI)> 60.0 mL/MinFlower HospitalPharmacy Creatinine Clearance (Chem80.71 F[facility] HospitalNucleated erythrocytes [Presence] in Blood by Automated countOrdered By: Swapnil Quigley on 53-56-8520Wdiwcdzif RBC Auto Ql (Bld)0.4 /100{WBC}0-0.5FMercy HospitalPlatelet mean volume Auto (Bld) [Entitic vol]Ordered By: Swapnil Quigley on 66-06-6716Sesgbqim mean volume (Bld) [Entitic vol]9.2 fL6.3-10.7FMercy Hospital Platelets Auto (Bld) [#/Vol]Ordered By: Swapnil Quigley on 18-98-2296Kqcioewjq (Bld) [#/Vol]303 10*3/dF434-853BbrjudybzFlower HospitalPotassium [Moles/volume] in Serum or PlasmaOrdered By: Swapnil Quigley on 06-22-2022 Potassium [Moles/Vol]4.7 mmol/L3.5-5.1FMercy HospitalProlactin [Mass/volume] in Serum or PlasmaOrdered By: Swapnil Quigley on 06-22-2022 Prolactin [Mass/Vol]24.90 ng/mL3.34-26.72F[facility] HospitalRBC Auto (Bld) [#/Vol]Ordered By: Swapnil Quigley on 38-82-0419CIO (Bld) [#/Vol] 4.86 10*6/uL3.60-5.00[facility] Medical Centererum or plasma anion gap determinationOrdered By: Swapnil Quigley on 88-01-4501Wlovv gap [Moles/Vol]11.6 mmol/L6.0-15.0[facility] Medical Centerodium [Moles/volume] in Serum or PlasmaOrdered By: Swapnil Quigley on 67-05-4195Vclefr [Moles/Vol]137 mmol/L 136-145Flower HospitalUrea nitrogen [Mass/volume] in Serum or PlasmaOrdered By: Swapnil Quigley on 17-55-6416Hpyt nitrogen [Mass/Vol]19 mg/dL 7-25Flower HospitalWBC Auto (Bld) [#/Vol]Ordered By: Swapnil Quigley on 58-92-1373ALV (Bld) [#/Vol]14.0 10*3/uL3.8-11.6FMercy HospitalCBC AUTO DIFFon 84-88-5656UDZU #0.1 103/ulNormal0.0-0.1The [facility] Medical CenterComment on above:Performed By: #### CBC #### [facility] [address] [address] [address] Paula Villalobossophils/100 WBC (Bld)1.5 %Normal0.2-2.0The [facility] Comment on above:Performed By: #### CBC #### [facility] [address] [place] [address] Dr. Paula Kong #0.1 103/ulNormal0.0-0.7The [facility] CenterComment on above: Performed By: #### CBC #### [facility] [address] [place] [address] Dr. Paula Hongosinophils/100 WBC (Bld)1.5 %Normal0.9-7.0The [facility] Comment on above:Performed By: #### CBC #### [facility] [address] [place] [address] Dr. Paula Hongrythrocyte distribution width (RBC) [Ratio]14.5 %Oupsmw09.0-15.0 [facility] HospitalComment on above:Performed By: #### CBC #### [facility] [address] [place] [address] Dr. Paula LeeHematocrit (Bld) [Volume fraction]41.5 %Cfaqdt50.0-48.0The [facility] Medical CenterComment on above:Performed By: #### CBC #### [facility] [address] [place] [address] Dr. Paula LeeHemoglobin (Bld) [Mass/Vol]13.6 g/mMVqsaoe96.0-16.0[facility] HospitalComment on above:Performed By: #### CBC #### [facility] [address] [place] [address] Dr. Paula Linn #0.07 10e3/ulCritically high0.00-0.03The [facility] Comment on above:Performed By: #### CBC #### [facility] [address] [place] [address] Dr. Paula Linn %0.8 %Critically high0.0-0.5The [facility] Medical CenterComment on above:Performed By: #### CBC #### [facility] [address] [place] [address] Dr. Yilan ChangLYMPH #1.4 103/ulNormal1.2-3.8The [facility] Medical CenterComment on above:Performed By: #### CBC #### [facility] [address] [place] [address] Dr. Paula Blackburnmphocytes/100 WBC (Bld)16.1 %Critically low20.5-60.0The [facility] Medical CenterComment on above:Performed By: #### CBC #### [facility] [address] [place] [address] Dr. Paula Sloan DIFF REQNONormalThe [facility]S Medical CenterComment on above: Performed By: #### CBC #### [facility] [address] [place] [address] Dr. Paula Tomlin (RBC) [Entitic mass]30.5 fpNhfbhu55.7-34.0The [facility] Medical CenterComment on above:Performed By: #### CBC #### [facility] [address] [place] [address] Dr. Paula Tomlin (RBC) [Mass/Vol]32.8 g/qHGpkxiu39.9-35.2The [facility] CenterComment on above:Performed By: #### CBC #### [facility] [address] [place] [address] Dr. Paula Jones (RBC) [Entitic vol]93.0 iSKbleju13.0-99.0The [facility] Medical CenterComment on above:Performed By: #### CBC #### [facility] [address] [place] [address] Dr. Paula Mcelroy #0.8 103/ulNormal0.3-0.8The [facility] Medical CenterComment on above:Performed By: #### CBC #### [facility] [address] [place] [address] Dr. Paula Schafferocytes/100 WBC (Bld)8.6 %Normal1.7-12.0The [facility] Comment on above:Performed By: #### CBC #### [facility] [address] [place] [address] Dr. Paula Lay #6.3 103/ulNormal1.4-6.5The [facility] Medical CenterComment on above:Performed By: #### CBC #### [facility] [address] [place] [address] Dr. Paula Justiceutrophils/100 WBC (Bld)71.5 %Ydpvuf51.0-75.0The [facility] Medical CenterComment on above:Performed By: #### CBC #### [facility] [address] [place] [address] Dr. Paula LeePlatelet mean volume (Bld) [Entitic vol]10.3 fLNormal9.5-13.5The [facility] Medical CenterComment on above:Performed By: #### CBC #### [facility] [address] [place] [address] Dr. Paula LeePLT230 103/mzZviqbl478-289Vxm [facility] CenterComment on above: Performed By: #### CBC #### [facility] [address] [place] [address] Dr. Paula LeeRBC4.46 106/ulNormal4.20-5.40The [facility] CenterCompromedica [facility] on above:Performed By: #### CBC #### [facility] [address] [place] [address] Dr. Paula LeeWBC8.8 103/ulNormal4.0-11.0The [facility] Medical CenterCompromedica monroe [facility] hospital on above: Performed By: #### CBC #### [facility] [address] [place] [address] Dr. Paula LeeGLYCOHEMOGLOBIN A1Con 26-34-3079DWE RECOMMENDATIONADA THERAPEUTIC TARGET 6.0 - 7.0 ACTION SUGGESTED > 7.0NormBlanchard Valley Health System Blanchard Valley HospitalComment on above:Performed By: #### A1C #### [facility] [address] [place] [address] Dr. Paula LeeGlucose [Mass/Vol]134 mg/dLNoTrinity Health System Twin City Medical CenterComment on above:Performed By: #### A1C #### [facility] [address] [place] [address] Dr. Paula LeeHbA1c (Bld) [Mass fraction]6.3 %Critically high<=6.0[facility] HospitalComment on above:Performed By: #### A1C #### [facility] [address] [address] [address] Puala BeckerID PROFILEon 79-03-0367MLWB-HDL RATIO NORMSEE BELOWThe Christ HospitalComment on above:Result Comment: 3.3 - 4.4 LOW RISK 4.4 - 7.1 AVERAGE RISK 7.1 - 11.0 MODERATE RISK >11.0 HIGH RISKPerformed By: #### T4, CMP, TSH, LIPID #### [facility] [address] [address] [address] Paula Narvaezesterol [Mass/Vol]168 mg/dLNormal<=200[facility] Comment on above:Performed By: #### T4, CMP, TSH, LIPID #### [facility] [address] [place] [address] Dr. Paula Narvaezesterol in HDL [Mass/Vol]43 mg/dLThe [facility] Hospital Comment on above:Performed By: #### T4, CMP, TSH, LIPID #### [facility] [address] [address] [address] Paula Narvaezesterol in LDL [Mass/Vol]100.8 mg/dLThe Christ HospitalComment on above:Performed By: #### T4, CMP, TSH, LIPID #### [facility] [address] [address] [address] Paula Herrera.total/Cholesterol in HDL [Mass ratio]3.9 {ratio} NormalDayton Osteopathic HospitalComment on above:Performed By: #### T4, CMP, TSH, LIPID #### [facility] [address] [address] [address] Paula Qureshi NORMAL> or = 60 mg/dl - LOW CARDIOVASCULAR RISK <40 mg/dl - HIGH CARDIOVASCULAR RISKThe Christ HospitalComment on above:Performed By: #### T4, CMP, TSH, LIPID #### [facility] [address] [address] [address] Paula LeeLDL CALC NORMALSEE BELOWNoTrinity Health System Twin City Medical CenterComment on above:Result Comment: <100 mg/dl OPTIMAL 100 - 129 mg/dl NEAR OR ABOVE OPTIMAL 130 - 159 mg/dl BORDERLINE HIGH 160 - 189 mg/dl HIGH >190 mg/dl VERY HIGH Performed By: #### T4, CMP, TSH, LIPID #### [facility] [address] [address] [address] Paula LeeTriglyceride [Mass/Vol]121 mg/dLNormal<=150The [facility] Comment on above:Performed By: #### T4, CMP, TSH, LIPID #### [facility] [address] [place] [address] Dr. Paula LeeVLDL CALC24.2 mg/dLNoTrinity Health System Twin City Medical CenterComment on above: Performed By: #### T4, CMP, TSH, LIPID #### [facility] [address] [place] [address] Dr. Paula De La GarzaALBUMIN, RAND URon 56-27-7905fHUR<1.3Normal<=30.0The [facility] Medical CenterComment on above:Performed By: #### MALBR #### [facility] [address] [place] [address] Dr. Paula LeePROF 14(COMP METB)on 14-80-1240Ohxrugd [Mass/Vol]3.4 g/dL Critically low3.5-5.0The [facility] Medical CenterComment on above:Performed By: #### T4, CMP, TSH, LIPID #### [facility] [address] [place] [address] Dr. Paula LeeAlbumin/Globulin [Mass ratio]0.8 {ratio}NormalThe [facility]S Medical CenterComment on above:Performed By: #### T4, CMP, TSH, LIPID #### [facility] [address] [place] [address] Dr. Paula LeeALP [Catalytic activity/Vol]67 U/VXivlvz14-305Xit [facility] CenterComment on above:Performed By: #### T4, CMP, TSH, LIPID #### [facility] [address] [address] [address] Paula Rogers [Catalytic activity/Vol]33 U/LNormal9-52The [facility] Comment on above:Performed By: #### T4, CMP, TSH, LIPID #### [facility] [address] [address] [address] Paula Pride gap [Moles/Vol]11.1 mmol/LNormalThe [facility] Comment on above:Performed By: #### T4, CMP, TSH, LIPID #### [facility] [address] [place] [address] Dr. Paula LeeAST [Catalytic activity/Vol]15 U/OQnfbfp86-14Wbi [facility] CenterComment on above:Performed By: #### T4, CMP, TSH, LIPID #### [facility] [address] [place] [address] Dr. Paula LeeBilirubin [Mass/Vol]0.4 mg/dLNormal0.2-1.3TSycamore Medical Center Comment on above:Performed By: #### T4, CMP, TSH, LIPID #### [facility] [address] [place] [address] Dr. Paula LeeCalcium [Mass/Vol]8.9 mg/dLNormal8.4-10.2[facility] Comment on above:Performed By: #### T4, CMP, TSH, LIPID #### [facility] [address] [place] [address] Dr. Paula LeeChloride [Moles/Vol]102 mmol/WQjfclc48-039Wwe [facility] Comment on above:Performed By: #### T4, CMP, TSH, LIPID #### [facility] [address] [place] [address] Dr. Paula LeeCO2 [Moles/Vol]27.0 mmol/JMapqyu18.0-30.0[facility] Comment on above:Performed By: #### T4, CMP, TSH, LIPID #### [facility] [address] [place] [address] Dr. Paula LeeCreatinine [Mass/Vol]0.79 mg/dLNormal0.52-1.04[facility] HospitalComment on above:Performed By: #### T4, CMP, TSH, LIPID #### [facility] [address] [address] [address] Paula HongGFR-AF GRENADIAN>60Normal>=60The [facility] Medical CenterComment on above:Performed By: #### T4, CMP, TSH, LIPID #### [facility] [address] [address] [address] Paula HongGFR-NON AF GRENADIAN>60Normal>=60The [facility] Medical CenterComment on above:Performed By: #### T4, CMP, TSH, LIPID #### [facility] [address] [address] [address] Paula LeeGlobulin (S) [Mass/Vol]4.3 g/dLNormalThe [facility] Medical CenterComment on above:Performed By: #### T4, CMP, TSH, LIPID #### [facility] [address] [place] [address] Dr. Paula LeeGlucose [Mass/Vol]129 mg/dLCritically oeaa27-364Pky [facility] on above:Performed By: #### T4, CMP, TSH, LIPID #### [facility] [address] [place] [address] Dr. Paula LeePotassium [Moles/Vol]4.1 mmol/LNormal3.4-5.0The [facility] Comment on above:Performed By: #### T4, CMP, TSH, LIPID #### [facility] [address] [address] [address] Paula LeeProtein [Mass/Vol]7.7 g/dLNormal6.1-8.2The [facility] Comment on above:Performed By: #### T4, CMP, TSH, LIPID #### [facility] [address] [address] [address] Paula LeeSodium [Moles/Vol]136 mmol/LCritically rps085-397Yrz [facility] Medical Centerment on above:Performed By: #### T4, CMP, TSH, LIPID #### [facility] [address] [address] [address] Paula De nitrogen [Mass/Vol]10.0 mg/dLNormal7.0-17.0The [facility] on above:Performed By: #### T4, CMP, TSH, LIPID #### [facility] [address] [place] [address] Dr. Paula LeeUrea nitrogen/Creatinine [Mass ratio]12.7 mg/mgNoTrinity Health System Twin City Medical CenterCompromedica [facility] on above:Performed By: #### T4, CMP, TSH, LIPID #### [facility] [address] [place] [address] Dr. Paula Good4on 32-70-6986A3 [Mass/Vol]7.10 ug/dLNormal5.53-11.00The [facility] on above:Performed By: #### T4, CMP, TSH, LIPID #### [facility] [address] [place] [address] Dr. Paula AngHomorro 11-23-4431WPQ9.940 uIU/mLNormal0.470-4.680The [facility] on above:Performed By: #### T4, CMP, TSH, LIPID #### [facility] [address] [place] [address] Dr. Paula Patel [facility]Comp[facility] on above: Result Comment: <0.34 UIU/ml HYPERTHYROID 0.34-5.60 UIU/ml EUTHYROID >5.60 UIU/ml HYPOTHYROIDPerformed By: #### T4, CMP, TSH, LIPID #### [facility] [address] [place] [address] Dr. Paula LeeVITAMIN D 25 OHon 83-00-3365VKK D 25-OH48.1 ng/mLNormalThe [facility] on above:Performed By: #### VITAD #### [facility] [address] [place] [address] Dr. Paula Crespo [facility] HospitalComment on above: Result Comment: <20 ng/mL Vit D deficient 20 - <30 ng/mL Vit D insufficient 30 - 100 ng/mL Vit D sufficient >100 ng/mL Potential ToxicityPerformed By: #### VITAD #### [facility] [address] [place] [address] Dr. Paula Lee25-HYDROXY VIT D (D2+D3 FRAC) LC/MS-MSon [id number]-Llsqiiz, Vitamin D40 ng/mLNormalDayton Osteopathic HospitalComment on above:Result Comment: Reference Range: All Ages: Target levels 30 - 100Performed By: #### VITDLC #### [facility] [address] [place] [address] Myah Hrgwa58-Izrzfbh, Vitamin D-2<1.0[facility] on above:Result Comment: This test was developed and its performance characteristics determined by [facility]. It has not been cleared or approved by the Food and Drug Administration.Performed By: #### VITDLC #### [facility] [address] [place] [address] Myah Alkei69-Kkkyzhc, Vitamin D-340 ng/mLNormalThe [facility] on above:Result Comment: This test was developed and its performance characteristics determined by [facility]. It has not been cleared or approved by the Food and Drug Administration.Performed By: #### VITDLC #### [facility] [address] [place] [address] Myah KarenCBC AUTO DIFFon [id number] #0.1 103/ulNormal0.0-0.1[facility] HospitalComment on above:Performed By: #### MALBR #### [facility] [address] [place] [address] Dr. Paula Villalobossophils/100 WBC (Bld)1.5 %Normal0.2-2.0[facility] Comment on above:Performed By: #### MALBR #### [facility] [address] [place] [address] Dr. Paula Kong #0.1 103/ulNormal0.0-0.7The [facility] CenterComment on above: Performed By: #### MALBR #### [facility] [address] [place] [address] Dr. Paula Hongosinophils/100 WBC (Bld)1.2 %Normal0.9-7.0The [facility] Comment on above:Performed By: #### MALBR #### [facility] [address] [place] [address] Dr. Paula Hongrythrocyte distribution width (RBC) [Ratio]13.9 %Anhnbs09.0-15.0 The [facility] CenterComment on above:Performed By: #### MALBR #### [facility] [address] [place] [address] Dr. Paula LeeHematocrit (Bld) [Volume fraction]40.2 %Qnbxjj75.0-48.0The [facility] CenterComment on above:Performed By: #### MALBR #### [facility] [address] [place] [address] Dr. Paula LeeHemoglobin (Bld) [Mass/Vol]13.2 g/jGDyjnle15.0-16.0The [facility] CenterComment on above:Performed By: #### MALBR #### [facility] [address] [place] [address] Dr. Paula Linn #0.06 10e3/ulCritically high0.00-0.03The [facility] Comment on above:Performed By: #### MALBR #### [facility] [address] [place] [address] Dr. Paula Linn %0.8 %Critically high0.0-0.5The [facility] CenterComment on above:Performed By: #### MALBR #### [facility] [address] [place] [address] Dr. Paula HernandezH #1.4 103/ulNormal1.2-3.8The [facility] CenterComment on above:Performed By: #### MALBR #### [facility] [address] [place] [address] Dr. Paula Blackburnmphocytes/100 WBC (Bld)18.8 %Critically low20.5-60.0The [facility] CenterComment on above:Performed By: #### MALBR #### [facility] [address] [place] [address] Dr. Paula PalmaUAL DIFF REQNONormalThe [facility] CenterComment on above: Performed By: #### MALBR #### [facility] [address] [place] [address] Dr. Paula Tomlin (RBC) [Entitic mass]31.1 xkPalgny24.7-34.0The [facility] CenterComment on above:Performed By: #### MALBR #### [facility] [address] [place] [address] Dr. Paula Tomlin (RBC) [Mass/Vol]32.8 g/dBGfixmp47.9-35.2The [facility] CenterComment on above:Performed By: #### MALBR #### [facility] [address] [place] [address] Dr. Paula Tomlin (RBC) [Entitic vol]94.6 tNNpkqup35.0-99.0The [facility] CenterComment on above:Performed By: #### MALBR #### [facility] [address] [place] [address] Dr. Paula Mcelroy #0.6 103/ulNormal0.3-0.8The [facility] CenterComment on above:Performed By: #### MALBR #### [facility] [address] [place] [address] Dr. Paula Schafferocytes/100 WBC (Bld)8.7 %Normal1.7-12.0The [facility] Comment on above:Performed By: #### MALBR #### [facility] [address] [place] [address] Dr. Paula Lay #5.0 103/ulNormal1.4-6.5The [facility] CenterComment on above:Performed By: #### MALBR #### [facility] [address] [place] [address] Dr. Paula Justiceutrophils/100 WBC (Bld)69.0 %Fnnopb17.0-75.0[facility] on above:Performed By: #### MALBR #### [facility] [address] [place] [address] Dr. Paula Andino mean volume (Bld) [Entitic vol]10.1 fLNormal9.5-13.5The [facility] CenterComment on above:Performed By: #### MALBR #### [facility] [address] [place] [address] Dr. Paula LeePLT240 103/eaLnzfux535-898VzfThe [facility] on above: Performed By: #### MALBR #### [facility] [address] [place] [address] Dr. Paula LeeRBC4.25 106/ulNormal4.20-5.40The [facility] on above:Performed By: #### MALBR #### [facility] [address] [place] [address] Dr. Paula LeeWBC7.3 103/ulNormal4.0-11.0The [facility] on above: Performed By: #### MALBR #### [facility] [address] [place] [address] Dr. Paula LeeFRYUNIOR T4on 17-21-1570Jvik T4 [Mass/Vol]1.13 ng/dLNormal0.78-2.19 The [facility] CenterCompromed[facility] on above:Performed By: #### FT4 #### [facility] [address] [place] [address] Myah KarenLIPID PROFILEon [id number]-HDL RATIO NORMSEE [facility]Comp[facility] on above:Result Comment: 3.3 - 4.4 LOW RISK 4.4 - 7.1 AVERAGE RISK 7.1 - 11.0 MODERATE RISK >11.0 HIGH RISKPerformed By: #### MALBR #### [facility] [address] [address] [address] Paula LeeCholesterol [Mass/Vol]162 mg/dLNormal<=200The [facility] Comment on above:Performed By: #### MALBR #### [facility] [address] [address] [address] Paula LeeCholesterol in HDL [Mass/Vol]38 mg/dLThe [facility] Comment on above:Performed By: #### MALBR #### [facility] [address] [address] [address] Paula LeeCholesterol in LDL [Mass/Vol]108.0 mg/dLThe Christ HospitalComment on above:Performed By: #### MALBR #### [facility] [address] [address] [address] Paula Narvaezesteryou.total/Cholesterol in HDL [Mass ratio]4.3 {ratio} NormalDayton Osteopathic HospitalComment on above:Performed By: #### MALBR #### [facility] [address] [address] [address] Paula Qureshi NORMAL> or = 60 mg/dl - LOW CARDIOVASCULAR RISK <40 mg/dl - HIGH CARDIOVASCULAR RISKThe Christ HospitalComment on above:Performed By: #### MALBR #### [facility] [address] [address] [address] Paula LeeLDL CALC NORMALSEE BELOWThe Christ HospitalComment on above:Result Comment: <100 mg/dl OPTIMAL 100 - 129 mg/dl NEAR OR ABOVE OPTIMAL 130 - 159 mg/dl BORDERLINE HIGH 160 - 189 mg/dl HIGH >190 mg/dl VERY HIGH Performed By: #### MALBR #### [facility] [address] [address] [address] Paula LeeTriglyceride [Mass/Vol]80 mg/dLNormal<=150The [facility] Comment on above:Performed By: #### MALBR #### [facility] [address] [address] [address] Paula LeeVLDL CALC16.0 mg/dLNormalThe [facility] CenterComment on above: Performed By: #### MALBR #### [facility] [address] [address] [address] Paula Trevizo 14(COMP METB)on 19-69-1575Ayuvtjw [Mass/Vol]3.5 g/dLNormal 3.5-5.0The [facility] CenterComment on above:Performed By: #### MALBR #### [facility] [address] [place] [address] Dr. Paula LeeAlbumin/Globulin [Mass ratio]0.8 {ratio}NormalThe [facility] CenterComment on above:Performed By: #### MALBR #### [facility] [address] [place] [address] Dr. Paula Drake [Catalytic activity/Vol]66 U/ZYncqqr85-113Uzs [facility] CenterComment on above:Performed By: #### MALBR #### [facility] [address] [place] [address] Dr. Paula Rogers [Catalytic activity/Vol]29 U/LNormal9-52[facility] Comment on above:Performed By: #### MALBR #### [facility] [address] [place] [address] Dr. Paula Pride gap [Moles/Vol]12.7 mmol/LNormalThe [facility] Comment on above:Performed By: #### MALBR #### [facility] [address] [place] [address] Dr. Paula Rodriguez [Catalytic activity/Vol]15 U/AEyxljb42-90Tiw [facility] Centerment on above:Performed By: #### MALBR #### [facility] [address] [place] [address] Dr. Paula LeeBilirubin [Mass/Vol]0.4 mg/dLNormal0.2-1.3The [facility] Comment on above:Performed By: #### MALBR #### [facility] [address] [place] [address] Dr. Paula LeeCalcium [Mass/Vol]9.0 mg/dLNormal8.4-10.2The [facility] Comment on above:Performed By: #### MALBR #### [facility] [address] [place] [address] Dr. Paula LeeChloride [Moles/Vol]103 mmol/NXczjzs14-546Fvn [facility] Comment on above:Performed By: #### MALBR #### [facility] [address] [address] [address] Paula LeeCO2 [Moles/Vol]26.5 mmol/WRbqxzs58.0-30.0The [facility] Comment on above:Performed By: #### MALBR #### [facility] [address] [place] [address] Dr. Paula LeeCreatinine [Mass/Vol]0.75 mg/dLNormal0.52-1.04The [facility] CenterComment on above:Performed By: #### MALBR #### [facility] [address] [place] [address] Dr. Paula HongGFR-AF GRENADIAN>60Normal>=60The [facility] CenterComment on above:Performed By: #### MALBR #### [facility] [address] [place] [address] Dr. Paula HongGFR-NON AF GRENADIAN>60Normal>=60The [facility] CenterComment on above:Performed By: #### MALBR #### [facility] [address] [place] [address] Dr. Paula LeeGlobulin (S) [Mass/Vol]4.3 g/dLNormalThe [facility] CenterComment on above:Performed By: #### MALBR #### [facility] [address] [place] [address] Dr. Paula LeeGlucose [Mass/Vol]130 mg/dLCritically jkbd66-759Ytd [facility] CenterComment on above:Performed By: #### MALBR #### [facility] [address] [place] [address] Dr. Paula LeePotassium [Moles/Vol]4.2 mmol/LNormal3.4-5.0The [facility] Comment on above:Performed By: #### MALBR #### [facility] [address] [place] [address] Dr. Paula LeeProtein [Mass/Vol]7.8 g/dLNormal6.1-8.2[facility] Comment on above:Performed By: #### MALBR #### [facility] [address] [place] [address] Dr. Paula LeeSodium [Moles/Vol]138 mmol/FCgkmyb989-694QvmDayton Osteopathic Hospital Comment on above:Performed By: #### MALBR #### [facility] [address] [place] [address] Dr. Paula De nitrogen [Mass/Vol]15.0 mg/dLNormal7.0-17.0[facility] HospitalComment on above:Performed By: #### MALBR #### [facility] [address] [place] [address] Dr. Paula De nitrogen/Creatinine [Mass ratio]20.0 mg/mgNoTrinity Health System Twin City Medical CenterComment on above:Performed By: #### MALBR #### [facility] [address] [place] [address] Dr. Paula Juarez 26-12-2910ORU4.572 uIU/mLNormal0.470-4.680[facility] HospitalComment on above:Performed By: #### MALBR #### [facility] [address] [place] [address] Dr. Paula Patel [facility] BELOWThe Christ HospitalComment on above: Result Comment: <0.34 UIU/ml HYPERTHYROID 0.34-5.60 UIU/ml EUTHYROID >5.60 UIU/ml HYPOTHYROIDPerformed By: #### MALBR #### [facility] [address] [place] [address] Dr. Paula Lee Vital Signs Date TimeVital SignValuePerforming CiqywpwktNmtottab57-53-6368 09:53-0500Body imadvo298.2 cmJessnii Layamilka [employer] Work Phone: [address] [address]Vusimzuibn64-67-9529 09:53-0500Body mass index (BMI) [Ratio]38.11 kg/e1Wjrjpmk Lause [employer] Work Phone: 1(879)[facility] [address]Zapuvkihhv56-93-0755 09:53-0500Body temperature 97.39 [degF]Alize Lause [employer] Work Phone: [phone] [address]Ijbghfffgc06-31-7191 09:53-0500Body upghoj38.11 kgJessica Lause [employer] Work Phone: 1(647)[facility] [address]Sjzmffapyy65-38-3671 09:53-0500Diastolic blood kggaxijp82 mm[Hg]Alize Lause [employer] Work Phone: 1(129)[facility] [address]Tmavopdsjs78-03-4865 09:53-0500Heart rate76 /min Alize Lause [employer] Work Phone: 1(198)[facility] [address]Fdflqzzyhd27-53-2604 09:53-0500Respiratory rate16 /minJessica Lause [employer] Work Phone: 1(137)[facility] [address]Lgrvyabzla12-21-0492 09:53-3770WgJ4% (BldA) [Mass fraction]92 %Alize Lause [employer] Work Phone: 1(016)[facility] [address]Vbrapvfwtm68-68-0243 09:53-0500Systolic blood dmoibjkl611 mm[Hg]Alize Lause [employer] Work Phone: 1(975)[facility]97[facility] CenterRyljogpiqr60-67-4679 13:01-0400Diastolic blood cxiphqoi87 mm[Hg]Alize Lause [employer] Work Phone: 1(798)[facility] [address]Asgckngmfb14-39-1772 13:01-0400Systolic blood yvgjjkyu912 mm[Hg]Alize Lause [employer] Work Phone: 1(232)[facility] [address]Parpzietjz83-94-2653 12:57-0400Body ntetsi676.2 cmJessica Lause [employer] Work Phone: 1(408)[facility] [address]Xuxubnvtxx92-79-8746 12:57-0400Body mass index (BMI) [Ratio]37.44 kg/b9Vhfitjn Lause [employer] Work Phone: [address] [address]Ongqwujlmn95-67-5906 12:57-0400Body temperature 97.2 [degF]Alize Lause [employer] Work Phone: [address] [address]Ogccqglnby60-26-3386 12:57-0400Body aompim22.75 kgJessica Lause [employer] Work Phone: [address] [address]Licmauhxvo28-29-3904 12:57-0400Heart rate87 /min Alize Lause [employer] Work Phone: [address] [address]Bfffqibzst26-97-2383 12:57-0400Respiratory rate16 /minJessica Lause [employer] Work Phone: [address] [address]Mkkwwgvsii03-87-8189 12:57-5953ZzV9% (BldA) [Mass fraction]98 %Alize Lause [employer] Work Phone: [address] [address]Rewueblnze83-10-8005 13:45-0400Body zujakj844.2 cmNicfallon Brown DPM Work Phone: [address] [address]Ijuhvwlxde81-61-8710 13:45-0400Body mass index (BMI) [Ratio]36.54 kg/p8Uowjizqy Brown DPM Work Phone: [address] [address]Mxfxazimjw72-80-0753 13:45-0400Body inodht60.94 kgNicholas Brown DPM Work Phone: 1(284)547-[address] [place], [place] [address]Heemusxtkg79-34-1821 13:45-0400Respiratory rate16 /minKaitlinas Brown DPM Work Phone: 1(637)699-[address] [place], [place] [address]Wptbhsqswh70-90-1924 15:16-0400Body .2 cmLeanne Venancio DO Work Phone: [address] [place] [address]Rylqrjiyrg20-75-1321 15:16-0400Body mass index (BMI) [Ratio]36.54 kg/h9Yalwyt Venancio DO Work Phone: [address] [address]Pdgjwsdavw75-30-2502 15:16-0400Body cfsgqa00.94 kgLeanne Venancio DO Work Phone: 1(419)626-[address] [place] [address]-21-2025 15:16-0400Diastolic blood mvujlefv63 mm[Hg]Patsy Venancio DO Work Phone: 1(722) 528-238457 [address] StreetXdqwecwiyt47-50-1995 15:16-0400Heart slos225 /min Patsy Venancio DO Work Phone: 1(842) 813-685257 [address] StreetAdrqhuerju86-00-1432 15:16-9073RpR3% (BldA) [Mass fraction]97 %Patsy Venancio DO Work Phone: 1(565) 134-687157 [address] StreetVmwpjzusvp69-04-8319 15:16-0400Systolic blood xvijtdlt286 mm[Hg]Patsy Venancio DO Work Phone: 1(910)101-[facility]757 [address] StreetZnegliugkr50-01-4397 09:52-0400Body gnyfvr684.2 cmJessica Lause [employer] Work Phone: 1(147)[facility] [place] [address]-20-2025 09:52-0400Body mass index (BMI) [Ratio]36.54 kg/a6Btduxhr Lause [employer] Work Phone: 1(616)[facility] [place], [place] [address]25 09:52-0400Body temperature 97.9 [degF]Alize Lause [employer] Work Phone: 1(455)[facility] [place], [place] [address]25 09:52-0400Body jbeugh17.94 kgJessica Lause [employer] Work Phone: 1(933)[facility] [place] [address]-20-2025 09:52-0400Diastolic blood mm[Hg]Alize Lause [employer] Work Phone: 1(502)[facility] [place], [place] [address]25 09:52-0400Heart rate89 /min Alize Lause [employer] Work Phone: 1(728)[facility]9[address] StreetYcvklxmvkz87-70-8410 09:52-0400Respiratory rate16 /minJessica Lause [employer] Work Phone: 1(428)[facility] [place], [place] [address]20[address]2025 09:52-8535AnP7% (BldA) [Mass fraction]93 %Alize Lause [employer] Work Phone: 1(125)[facility] [place], [place] [address]20[address]25 09:52-0400Systolic blood kjokcznp579 mm[Hg]Alize Arrington [employer] Work Phone: [phone] CenterOetujefvqk48-88-7098 10:37-0400Body oemyvv039.24 cmDelgado Valdez MD Work Phone: 1(712)[address] [place], [place] 9676608-14-2025 10:37-0400 Body mass index (BMI) [Ratio]36.5 kg/d8BvelgDelgado Valdez MD Work Phone: 1(725)[address] [place], [place] 9676608-14-2025 10:37-0400 Body uwpwny91.93 kgDelgado Valdez MD Work Phone: 1(770)[address] [place], [place] 9676608-14-2025 10:37-0400 Diastolic blood duzfyvgo32 mm[Hg]Delgado Valdez MD Work Phone: 1(601)[address] [place], [place] 9676608-14-2025 10:37-0400 Heart rate97 /Jc Valdez MD Work Phone: 1(471)[address] [place], [place] 9676608-14-2025 10:37-0400 Respiratory rate18 /Jc Valdez MD Work Phone: 1(993)[address] [place], [place] 9676608-14-2025 10:37-0400 SaO2% (BldA) [Mass fraction]76 %Delgado Valdez MD Work Phone: 1(670)[address] [place], [place] 9676608-14-2025 10:37-0400 Systolic blood sdunswej541 mm[Hg]Delgado Valdez MD Work Phone: 1(754)[address] [place], [place] 9676608-12-2025 21:14-0400 Diastolic blood lhligrrs89 mm[Hg]Delgado Valdez MD Work Phone: 1(891)[address] [place], [place] 9676608-12-2025 21:14-0400 Heart urwx441 /Jc Valdez MD Work Phone: 1(750)[address] [place], [place] 9676608-12-2025 21:14-0400 Respiratory rate18 /Jc Valdez MD Work Phone: 1(812)[address] [place], [place] 9676608-12-2025 21:14-0400 SaO2% (BldA) [Mass fraction]95 %Delgado Valdez MD Work Phone: 1(470)[address] [place], [place] 9676608-12-2025 21:14-0400 Systolic blood helbaxky590 mm[Hg]Delgado Valdez MD Work Phone: 1(994)[address] [place], [place] 9676608-12-2025 19:32-0400 Body skpowp028.24 cmDelgado Valdez MD Work Phone: 1(858)[address] [place], [place] 9676608-12-2025 19:32-0400 Body yajgclbdvme40.4 [degF]Delgado Valdez MD Work Phone: 1(492)[address] [place], [place] 9676608-12-2025 19:32-0400 Body .7 kgDelgado Valdez MD Work Phone: 1(575)[address] [place], [place] 9676608-12-2025 09:47-0400 Diastolic blood zsmficag91 mm[Hg]Delgado Valdez MD Work Phone: 1(424)[address] [place], [place] 9676608-12-2025 09:47-0400 Heart rate64 /minDelgado Valdez MD Work Phone: 1(371)[address] [place], [place] 9676608-12-2025 09:47-0400 Respiratory rate22 /minDelgado Valdez MD Work Phone: 1(134)[address] [place], [place] 9676608-12-2025 09:47-0400 SaO2% (BldA) [Mass fraction]95 %Delgado Valdez MD Work Phone: 1(388)[address] [place], [place] 9676608-12-2025 09:47-0400 Systolic blood otpmwnns023 mm[Hg]Delgado Valdez MD Work Phone: 1(481)[address] [place], [place] 9676608-12-2025 08:31-0400 Body .78 cmDelgado Valdez MD Work Phone: 1(464)[address] [place], [place] 9676608-12-2025 08:31-0400 Body aticih97 kgDelgado Valdez MD Work Phone: 1(496)[address] [place], [place] 9676608-12-2025 08:29-0400 Body jylqfypwmdv87.3 [degF]Delgado Valdez MD Work Phone: 1(140)[address] [place], [place] 9676608-11-2025 19:11-0400 Diastolic blood hahxklgg97 mm[Hg]Delgado Valdez MD Work Phone: 1(173)[address] [place], [place] 9676608-11-2025 19:11-0400 Heart rate80 /minDelgado Valdez MD Work Phone: 1(608)[address] [place], [place] 9676608-11-2025 19:11-0400 Respiratory rate16 /minDelgado Valdez MD Work Phone: 1(185)[address] [place], [place] 9676608-11-2025 19:11-0400 Systolic blood gqntzdal545 mm[Hg]Delgado Valdez MD Work Phone: 1(829)[address] [place], [place] 9676608-11-2025 18:30-0400 SaO2% (BldA) [Mass fraction]96 %Delgado Valdez MD Work Phone: 1(784)[address] [place], [place] 9676608-11-2025 16:10-0400 Body bnjokmskqnj74.4 [degF]Delgado Valdez MD Work Phone: 1(255)[address] [place], [place] 9676608-11-2025 16:08-0400 Body .32 cmDelgado Valdez MD Work Phone: 1(794)[address] [place], [place] 9676608-11-2025 16:08-0400 Body hmnbuy44.3 kgDelgado Valdez MD Work Phone: 1(257)[address] [place], [place] 9676606-13-2025 15:34-0400 Body qyusaf664.2 cmRaymon Pepper DPM Work Phone: [facility] CenterJnzhcunckl14-89-6346 15:34-0400Body mass index (BMI) [Ratio]35.87 kg/g3RyiwuriyRaymon Pepper DPM Work Phone: [facility] CenterSzmdncyiky28-77-7224 15:34-0400Body gpiexp83.58 kgRaymon Pepper DPM Work Phone: [facility] CenterNbjvkrhilz74-70-0558 15:34-0400Respiratory rate16 /minNicholsandra Pepper DPM Work Phone: [facility] CenterEkxlzaivew26-00-5727 14:36-0400Body ojbulp619.2 cmLeajoe Craft DO Work Phone: [facility] CenterLmzhgjvopm72-45-4945 14:36-0400Body mass index (BMI) [Ratio]35.87 kg/d3Wrhsqu Venancio DO Work Phone: [facility] CenterBantntwaqx52-86-1272 14:36-0400Body qadpti79.58 kgLeannhowie Venancio DO Work Phone: [facility] CenterYkwrnupsig14-60-3798 14:36-0400Diastolic blood eypuqfmk61 mm[Hg]Patsy Venancio DO Work Phone: noCitizens Memorial HealthcareVfwcvrdsyi06-04-6357 14:36-0400Heart uvhk179 /min Patsy Venancio DO Work Phone: [facility] CenterUwnxkbkbhf84-06-1267 14:36-4797LiA1% (BldA) [Mass fraction]98 %Patsy Venancio DO Work Phone: noCitizens Memorial HealthcareKpwgbxkfhi40-30-2623 14:36-0400Systolic blood tyepnqtw320 mm[Hg]Patsy Venancio DO Work Phone: [facility] CenterBexcsbnjmq18-29-4309 09:53-0400Body ieqkss108.2 cmJessica Lause [employer] Work Phone: [facility] CenterZdodcewfpw83-74-3243 09:53-0400Body mass index (BMI) [Ratio]36.41 kg/a8Izdadkv Lause [employer] Work Phone: [facility] CenterRenokjwqrx26-68-2377 09:53-0400Body temperature 98.2 [degF]Alize Lause [employer] Work Phone: [facility] CenterTbvywtghlc11-65-9020 09:53-0400Body niehey84.66 kgJessica Lause [employer] Work Phone: [facility] CenterEftofvmuxu91-21-3774 09:53-0400Diastolic blood mm[Hg]Alize Lause [employer] Work Phone: [facility] CenterOjkmavoedr46-22-8713 09:53-0400Heart rate81 /min Alize Lause [employer] Work Phone: [facility] CenterVqjjckxgyd96-13-0786 09:53-0400Respiratory rate20 /minJessica Lause [employer] Work Phone: [facility] CenterRknhpzyrve94-14-0911 09:53-9739WiZ8% (BldA) [Mass fraction]98 %Alize Lause [employer] Work Phone: [facility] CenterOphppqymhq39-87-1408 09:53-0400Systolic blood hzdyjivz789 mm[Hg]Alize Lause [employer] Work Phone: [facility] CenterGzmrjkgskr13-69-7268 10:14-0400Body drqbko058.2 cmAngela Lowe PA Work Phone: [facility] CenterHyhizkzoaf37-29-1385 10:14-0400Body mass index (BMI) [Ratio]35.87 kg/r3Xmpwqk Lowe PA Work Phone: [facility] CenterWbjsueittv78-79-2714 10:14-0400Body jsrozo74.58 kgAngela Lowe PA Work Phone: [facility] CenterQlukmmbclb03-67-2237 10:14-0400Diastolic blood mm[Hg]Briseyda Lowe PA Work Phone: [facility] CenterIqsxtgvfbs70-63-8224 10:14-0400Systolic blood ujnkwzaf701 mm[Hg]Briseyda Lowe PA Work Phone: [facility] CenterVlbdojsbxs37-35-1447 00:00-0400Diastolic blood bgoxndyk47 mm[Hg]Delgado Valdez MD Work Phone: [facility]04-02-2025 00:00-0400 Heart rate72 /minDelgado Valdez MD Work Phone: [facility]04-02-2025 00:00-0400 Inhaled oxygen flow rate4 L/minDelgado Valdez MD Work Phone: 1(734)[facility] [place], [place] [address]706904-02-2025 00:00-0400 Respiratory rate18 /minDelgado Valdez MD Work Phone: 1(594)[address] [place], [place] 9676604-02-2025 00:00-0400 SaO2% (BldA) [Mass fraction]99 %Delgado Valdez MD Work Phone: 1(753)[address] [place], [place] 9676604-02-2025 00:00-0400 Systolic blood depvciis021 mm[Hg]Delgado Valdez MD Work Phone: 1(716)[address] [place], [place] 9676604-01-2025 19:13-0400 Body hxgocd798.78 cmDelgado Valdez MD Work Phone: 1(701)[address] [place], [place] 9676604-01-2025 19:13-0400 Body gnyycnotmjn95.5 [degF]Delgado Valdez MD Work Phone: 9(592)[address] [place], [place] 9676604-01-2025 19:13-0400 Body bcelty50.11 kgDelgado Valdez MD Work Phone: 1(331)[address] [place], [place] 9676603-05-2025 09:39-0500 Body .2 cmJessica Lause [employer] Work Phone: 1(255)[address] [place], [place] 1895003-05-2025 09:39-0500Body mass index (BMI) [Ratio]35.83 kg/u1Qeiyeur Lause [employer] Work Phone: 9(337)[facility] [place], [place] [address]Thquksvktk99-09-5744 09:39-0500Body temperature 97.9 [degF]Alize Lause [employer] Work Phone: 5(011)[address] [place], [place] 1895003-05-2025 09:39-0500Body qrelgs61.48 kgJessica Lause [employer] Work Phone: 4(266)[facility] [place], [place] [address]Uorfaapure07-09-8331 09:39-0500Diastolic blood zsjewfia02 mm[Hg]Alize Lause [employer] Work Phone: 1(120)[address] [place], [place] 1895003-05-2025 09:39-0500Heart rate80 /min Alize Lause [employer] Work Phone: 1(346)[facility]25[facility] CenterEgtjbbitac50-13-4152 09:39-0500Respiratory rate22 /minJessica Lause [employer] Work Phone: 1(073)[facility]88[facility] CenterBvkglisrkd48-53-3203 09:39-2137WsI0% (BldA) [Mass fraction]97 %Alize Lause [employer] Work Phone: 1(248)[facility]52[facility] CenterGxvxwcxjgo67-88-2722 09:39-0500Systolic blood wahttfel540 mm[Hg]Alize Lause [employer] Work Phone: 1(766)[address] [place], [place] 1895003-01-2025 09:54-0500Body temperature 98.4 [degF]Delgado Valdez MD Work Phone: 1(760)[address] [place], [place] 9676603-01-2025 09:54-0500 Diastolic blood zeqijlxu10 mm[Hg]eDlgado Valdez MD Work Phone: 1(026)[address] [place], [place] 9676603-01-2025 09:54-0500 Heart rate75 /minDelgado Valdez MD Work Phone: 1(786)[address] [place], [place] 9676603-01-2025 09:54-0500 Respiratory rate18 /minDelgado Valdez MD Work Phone: 1(229)[address] [place], [place] 9676603-01-2025 09:54-0500 SaO2% (BldA) [Mass fraction]99 %Delgado Valdez MD Work Phone: 1(035)[address] [place], [place] 9676603-01-2025 09:54-0500 Systolic blood nccuhrpm952 mm[Hg]Delgado Valdez MD Work Phone: 1(696)[address] [place], [place] 9676603-01-2025 09:50-0500 Body gtofcb560.4 cmDelgado Valdez MD Work Phone: 1(544)[address] [place], [place] 9676603-01-2025 09:50-0500 Body iieeeu14.9 kgDelgado Valdez MD Work Phone: 1(498)[address] [place], [place] 9676602-24-2025 11:32-0500 Diastolic blood txpbybbm63 mm[Hg]Delgado Valdez MD Work Phone: 1(313)[address] [place], [place] 9676602-24-2025 11:32-0500 Heart rate69 /minDelgado Valdez MD Work Phone: 1(401)[address] [place], [place] 9676602-24-2025 11:32-0500 Respiratory rate23 /minDelgado Valdez MD Work Phone: 1(838)[address] [place], [place] 9676602-24-2025 11:32-0500 SaO2% (BldA) [Mass fraction]99 %Delgado Valdez MD Work Phone: 1(128)[address] [place], [place] 9676602-24-2025 11:32-0500 Systolic blood pxuypcms390 mm[Hg]Delgado Valdez MD Work Phone: 1(822)[address] [place], [place] 9676602-24-2025 09:37-0500 Inhaled oxygen flow rate4 L/minDelgado Valdez MD Work Phone: 1(452)[address] [place], [place] 9676602-24-2025 08:25-0500 Body inbixeaksoy35.6 [degF]Delgado Valdez MD Work Phone: 1(254)[address] [place], [place] 9676602-24-2025 08:16-0500 Body nwdmiq207.4 cmDelgado Valdez MD Work Phone: 1(109)[address] [place], [place] 9676602-24-2025 08:16-0500 Body yvlgwc61.8 kgDelgado Valdez MD Work Phone: 1(672)[address] [place], [place] 9676602-19-2025 13:20-0500 Body tihgih319.2 cmJessica Lause [employer] Work Phone: 1(201)[address] [place], [place] 1895002-19-2025 13:20-0500Body mass index (BMI) [Ratio]36.77 kg/m8Wlccfhn Lause [employer] Work Phone: 1(208)[address] [place], [place] 1895002-19-2025 13:20-0500Body temperature 97.81 [degF]Alize Lause [employer] Work Phone: 1(674)[address] [place], [place] 1895002-19-2025 13:20-0500Body habudd47.39 kgJessica Lause [employer] Work Phone: noCit[facility] HealthcareEhpagjkjjo56-29-6957 13:20-0500Diastolic blood ukipbtqh43 mm[Hg]Alize Abreuuse [employer] Work Phone: noCit[facility] HealthcareAwzupefmnf15-97-9050 13:20-0500Heart rate73 /min Alize Abreuuse [employer] Work Phone: noCit[facility] HealthcareNlqsseixyy69-66-9914 13:20-7656InT0% (BldA) [Mass fraction]98 %Alize Lause [employer] Work Phone: [facility] CenterZengcdwute75-31-3139 13:20-0500Systolic blood mmutegjh685 mm[Hg]Alize Abreuuse [employer] Work Phone: noCit[facility] HealthcareKjbxjlzppk66-14-0604 14:25-0500Body .2 cmKaitlinsandra Pepper DPM Work Phone: noCit[facility] HealthcareNuysxkrszw06-39-0202 14:25-0500Body mass index (BMI) [Ratio]37.44 kg/v6Rfjfqzpu Shreyas DPM Work Phone: noCit[facility] HealthcareDrjzfdezrp93-88-3619 14:25-0500Body akkfqc53.75 kgRobertfallon Pepper DPM Work Phone: noCit[facility] Memorial HealthcareXsiphawuru66-08-2603 14:52-0500Body npkyik062.2 cmAngela Lowe PA Work Phone: noCit[facility] Memorial HealthcareJtdyvgkhiw82-68-0320 14:52-0500Body mass index (BMI) [Ratio]37.44 kg/y6Eaenrj Lowe PA Work Phone: noCit[facility] HealthcareHvzqbvkabg25-20-0856 14:52-0500Body rijtph56.75 kgAngela Lowe PA Work Phone: noCit[facility] HealthcareVrluzwjzkw50-82-1665 14:52-0500Diastolic blood ygddxoeu30 mm[Hg]Briseyda Lowe PA Work Phone: noCit[facility] HealthcareQmjpwclhcc04-35-3583 14:52-0500Systolic blood ewnwjleg708 mm[Hg]Briseyda Lowe PA Work Phone: [facility] CenterRybbrsvlkc98-67-8078 11:07-0500Diastolic blood wjjvhbgi99 mm[Hg]Delgado Valdez MD Work Phone: 1(377)[address] [place], [place] 9676611-21-2024 11:07-0500 Heart rate88 /minDelgado Valdez MD Work Phone: 1(637)[address] [place], [place] 9676611-21-2024 11:07-0500 Respiratory rate16 /minDelgado Valdez MD Work Phone: 1(618)[address] [place], [place] 9676611-21-2024 11:07-0500 SaO2% (BldA) [Mass fraction]96 %Delgado Valdez MD Work Phone: 1(145)[address] [place], [place] 9676611-21-2024 11:07-0500 Systolic blood mm[Hg]Delgado Valdez MD Work Phone: 1(933)[address] [place], [place] 9676611-21-2024 07:57-0500 Body .32 cmDelgado Valdez MD Work Phone: 1(789)[address] [place], [place] 9676611-21-2024 07:57-0500 Body vejnhxcouvc58.4 [degF]Delgado Valdez MD Work Phone: 5(713)[address] [place], [place] 9676611-21-2024 07:57-0500 Body ecumee75.5 kgDelgado Valdez MD Work Phone: 5(366)[address] [place], [place] 9676611-20-2024 13:30-0500 Body olkymf970.2 cmJessica Lause [employer] Work Phone: 1(331)[address] [place], [place] 1895011-20-2024 13:30-0500Body mass index (BMI) [Ratio]37.71 kg/n3Xxibbpn Lause [employer] Work Phone: 4(078)[address] [place] [address]-20-2024 13:30-0500Body temperature 97.3 [degF]Alize Lause [employer] Work Phone: 1(521)[address] [place] [address]-20-2024 13:30-0500Body imhxjt70.3 kg Alize Lause [employer] Work Phone: 1(419)[address] [place], [place] 1895011-20-2024 13:30-0500Diastolic blood wmorsbzj50 mm[Hg]Alize Lause [employer] Work Phone: [facility] CenterNekdighfnj09-75-4693 13:30-0500Heart rate79 /min Alize Lause [employer] Work Phone: [place] [address]Tyreawbara31-07-5251 13:30-2891CmQ6% (BldA) [Mass fraction]98 %Alize Lause [employer] Work Phone: [facility] CenterPhdmarxdsg42-33-4426 13:30-0500Systolic blood qsuodmgn31 mm[Hg]Alize Lause [employer] Work Phone: [facility] CenterPzylydxdfa19-56-1524 14:36-0400Body jrengt725.2 cmRaymon Pepper DPM Work Phone: 1([phone] CenterJkwijlosic93-72-3734 14:36-0400Body mass index (BMI) [Ratio]43.05 kg/p2LqslatjhRaymon Pepper DPM Work Phone: [facility] CenterBlfxwjdutt42-60-6149 14:36-0400Body .09 kgRaymon Pepper DPM Work Phone: 1(515)8991087[facility] CenterOuiemirusd33-75-3347 14:36-0400Diastolic blood qptssxaa21 mm[Hg]Raymon Pepper DPM Work Phone: [facility] CenterSrmohoside72-94-2353 14:36-0400Heart rate88 /min Raymon Pepper DPM Work Phone: 1(150)592-[address] [place], [place] [address]Jdullamsds85-64-5989 14:36-0400Systolic blood ovxndnjs223 mm[Hg]Raymon Pepper DPM Work Phone: 1(595)[address] [place], [place] [address]Nrnfwwhglk82-16-8920 12:00-0400Diastolic blood nmezaeao11 mm[Hg]MD Delgado Valdez Work Phone: [facility]08-21-2024 12:00-0400 Heart rate67 /minMD Delgado Valdez Work Phone: 1(419)[address] [place], [place] 9676608-21-2024 12:00-0400 Inhaled oxygen flow rate4 L/minMD Delgado Pedrozater Work Phone: 1(375)[address] [place], [place] 9676608-21-2024 12:00-0400 Respiratory rate16 /minMD Delgado Pedrozater Work Phone: 1(197)[address] [place], [place] 9676608-21-2024 12:00-0400 SaO2% (BldA) [Mass fraction]96 %MD Delgado Valdez Work Phone: 1(429)[address] [place], [place] 9676608-21-2024 12:00-0400 Systolic blood mm[Hg]MD Delgado Valdez Work Phone: 1(939)[address] [place], [place] 9676608-21-2024 09:13-0400 Body .32 cmMD Delgado Pedrozater Work Phone: 1(024)[address] [place], [place] 9676608-21-2024 09:13-0400 Body gorpfp79.9 kgMD Delgado Pedrozater Work Phone: 1(706)[address] [place], [place] 9676608-21-2024 09:12-0400 Body nxgnseuqsdr19.1 [degF]MD Delgado Valdez Work Phone: 1(982)[address] [place], [place] 9676606-01-2024 21:34-0400 Body .78 cmMD Delgado Pedrozater Work Phone: 1(122)[address] [place], [place] 9676606-01-2024 21:34-0400 Body ujqransgrad69.9 [degF]MD Delgado Valdez Work Phone: 1(583)[address] [place], [place] 9676606-01-2024 21:34-0400 Body nuusxz14.71 kgMD Delgado Pedrozater Work Phone: 1(493)[address] [place], [place] 9676606-01-2024 21:34-0400 Diastolic blood dgpderzu28 mm[Hg]MD Delgado Valdez Work Phone: 1(322)[address] [place], [place] 9676606-01-2024 21:34-0400 Heart rate69 /minMD Delgado Valdez Work Phone: 1(030)[address] [place], [place] 9676606-01-2024 21:34-0400 Respiratory rate20 /minMD Delgado Pedrozater Work Phone: 1(070)[address] [place], [place] 9676606-01-2024 21:34-0400 SaO2% (BldA) [Mass fraction]99 %MD Delgado Valdez Work Phone: 1(742)[address] [place], [place] 9676606-01-2024 21:34-0400 Systolic blood mm[Hg]MD Delgado Valdez Work Phone: 1(060)[address] [place], [place] 9676604-24-2024 15:27-0400 Heart rate88 /minMD Delgado Pedrozater Work Phone: 1(108)[address] [place], [place] 9676604-24-2024 15:27-0400 Respiratory rate18 /minMD Delgado Pedrozater Work Phone: 1(571)[address] [place], [place] 9676604-24-2024 12:09-0400 Inhaled oxygen flow rate4 L/minMD Delgado Valdez Work Phone: 1(161)[address] [place], [place] 9676604-24-2024 12:00-0400 SaO2% (BldA) [Mass fraction]94 %MD Delgado Valdez Work Phone: 1(553)[address] [place], [place] 9676604-24-2024 09:23-0400 Inhaled oxygen aohoxschdbrhx43 %MD Delgado Valdez Work Phone: 1(890)[address] [place], [place] 9676604-24-2024 05:47-0400 Body vbusyv67.3 kgMD Delgado Valdez Work Phone: 1(582)[address] [place], [place] 9676604-24-2024 04:00-0400 Body vfiwqhwccri64.8 [degF]MD Delgado Valdez Work Phone: 1(488)[address] [place], [place] 9676604-24-2024 04:00-0400 Diastolic blood ockqxlch94 mm[Hg]MD Delgado Valdez Work Phone: 1(683)[address] [place], [place] 9676604-24-2024 04:00-0400 Systolic blood luesqvxy129 mm[Hg]MD Delgado Valdez Work Phone: 1(162)[address] [place], [place] 9676604-17-2024 20:33-0400 Body myyzku216.32 cmMD Delgado Valdez Work Phone: [facility]04-17-2024 18:21-0400 Diastolic blood wawijmja92 mm[Hg]Bismark Edwards [address] [place], [place] 7546904-17-2024 18:21-0400Heart rate77 /minBismark Edwards [address] [place], [place] 7546904-17-2024 18:21-0400Mean blood juefevqc838 mm[Hg]Bismark Edwards [address] [place], [place] 0884804-17-2024 18:21-0400 Respiratory rate20 /minBismark Edwards [address] [place], [place] 7546904-17-2024 18:21-9329CvZ0% (BldA) [Mass fraction]97 %Bismark Edwards [address] [place], [place] 7546904-17-2024 18:21-0400 Systolic blood krxhcixo743 mm[Hg]Bismark Edwards [address] [place], [place] 7546904-17-2024 17:30-0400 Diastolic blood fmhatprz90 mm[Hg]Bismark Edwards [address] [place], [place] 7546904-17-2024 17:30-0400Heart rate85 /minBismark Edwards [address] [place], [place] 7546904-17-2024 17:30-0400Mean blood viklaown13 mm[Hg]Bismark Edwards [address] [place], [place] 7546904-17-2024 17:30-0400 Respiratory rate20 /minBismark Edwards [address] [place], [place] 7546904-17-2024 17:30-3666GnZ4% (BldA) [Mass fraction]90 %Bismark Edwards [address] [place], [place] 7546904-17-2024 17:30-0400 Systolic blood jlmwibto092 mm[Hg]Bismark Edwards [facility]04-17-2024 17:00-0400Heart rate81 /Yoon Edwards [facility]04-17-2024 17:00-9329JsD0% (BldA) [Mass fraction]96 %Bismark Edwards [facility]04-17-2024 11:46-6778RfG1% (BldA) [Mass fraction]95.6 %Bismark Edwards [facility] OP13-19-4580 11:14-0400Body temperature 97.7 [degF]Bismark Edwards [facility]04-17-2024 11:14-0400Heart rate89 /Yoon Edwards [facility]04-05-2024 09:34-0400Heart rate91 /minMD Delgado Valdez Work Phone: 2(020)992-57[facility]04-05-2024 09:34-0400 Inhaled oxygen flow rate4 L/minMD Delgado Valdez Work Phone: 9(172)250-65[facility]04-05-2024 09:34-0400 Respiratory rate22 /minMD Delgado Valdez Work Phone: 7(222)596-85[facility]04-05-2024 09:34-0400 SaO2% (BldA) [Mass fraction]95 %MD Delgado Valdez Work Phone: 7(112)012-[facility]04-05-2024 08:13-0400 Body .86 cmMD Delgado Valdez Work Phone: 5(035)111-31[facility]04-05-2024 08:13-0400 Body fpggmoptkoo80.7 [degF]MD Delgado Valdez Work Phone: 1(990)079-91[facility]04-05-2024 08:13-0400 Body .3 kgMD Delgado Valdez Work Phone: 1(987)[address] [place], [place] 9676604-05-2024 08:13-0400 Diastolic blood akjlgwme74 mm[Hg]MD Delgado Valdez Work Phone: 1(126)[address] [place], [place] 9676604-05-2024 08:13-0400 Systolic blood qabeagid371 mm[Hg]MD Delgado Valdez Work Phone: 1(236)[address] [place], [place] 9676603-12-2024 23:10-0400 Body whidjrfkmru64.1 [degF]MD Delgado Valdez Work Phone: 1(313)[address] [place], [place] 9676603-12-2024 23:10-0400 Diastolic blood dpmbvahk82 mm[Hg]MD Delgado Valdez Work Phone: 1(144)[address] [place], [place] 9676603-12-2024 23:10-0400 Heart rate78 /minMD Delgado Pedrozater Work Phone: 1(425)[address] [place], [place] 9676603-12-2024 23:10-0400 Inhaled oxygen flow rate4 L/minMD Delgado Pedrozater Work Phone: 1(077)[address] [place], [place] 9676603-12-2024 23:10-0400 Respiratory rate20 /minMD Delgado Pedrozater Work Phone: 1(537)[address] [place], [place] 9676603-12-2024 23:10-0400 SaO2% (BldA) [Mass fraction]96 %MD Delgado Valdez Work Phone: 1(883)[address] [place], [place] 9676603-12-2024 23:10-0400 Systolic blood dlyhqbsk788 mm[Hg]MD Delgado Valdez Work Phone: 1(194)[address] [place], [place] 9676603-12-2024 21:45-0400 Body .7 cmMD Delgado Pedrozater Work Phone: 1(990)[address] [place], [place] 9676603-12-2024 21:45-0400 Body .55 kgMD Delgado Pedrozater Work Phone: 1(756)[address] [place], [place] 9676602-20-2024 18:00-0500 Diastolic blood mpclnhdo08 mm[Hg]MD Delgado Valdez Work Phone: 1(958)[address] [place], [place] 9676602-20-2024 18:00-0500 Heart rate71 /minMD Delgado Pedrozater Work Phone: 1(998)[address] [place], [place] 9676602-20-2024 18:00-0500 Respiratory rate19 /minMD Delgado Pedrozater Work Phone: 1(278)[address] [place], [place] 9676602-20-2024 18:00-0500 SaO2% (BldA) [Mass fraction]98 %MD Delgado Valdez Work Phone: 1(634)[address] [place], [place] 9676602-20-2024 18:00-0500 Systolic blood iwsljclz319 mm[Hg]MD Delgado Valdez Work Phone: 1(846)[address] [place], [place] 9676602-20-2024 17:25-0500 Inhaled oxygen flow rate4 L/minMD Delgado Pedrozater Work Phone: 1(707)[address] [place], [place] 9676602-20-2024 16:17-0500 Body sxunjc735.24 cmMD Delgado Valdez Work Phone: 1(149)[address] [place], [place] 9676602-20-2024 16:17-0500 Body wyirff95.3 kgMD Delgado Pedrozater Work Phone: 1(834)[address] [place], [place] 9676602-20-2024 16:11-0500 Body oofdypcdgyg62.4 [degF]MD Delgado Valdez Work Phone: 1(025)[address] [place], [place] 9676602-10-2024 14:00-0500 Diastolic blood mm[Hg]MD Delgado Valdez Work Phone: 1(179)[address] [place], [place] 9676602-10-2024 14:00-0500 Heart rate66 /minMD Delgado Pedrozater Work Phone: 1(605)[address] [place], [place] 9676602-10-2024 14:00-0500 Inhaled oxygen flow rate4 L/minMD Delgado Pedrozater Work Phone: 1(571)[facility] [place], [place] 0706902-10-2024 14:00-0500 Respiratory rate20 /minMD Natarajan Valdez Work Phone: 1(226)[address] [place], [place] 9676602-10-2024 14:00-0500 SaO2% (BldA) [Mass fraction]95 %MD Delgado Valdez Work Phone: 1(344)[address] [place], [place] 9676602-10-2024 14:00-0500 Systolic blood ubqewnqa935 mm[Hg]MD Delgado Valdez Work Phone: 1(396)[address] [place], [place] 9676602-10-2024 12:57-0500 Body ahskue484.1 cmMD Delgado Valdez Work Phone: 1(868)[address] [place], [place] 9676602-10-2024 12:57-0500 Body weymgu23.57 kgMD Delgado Valdez Work Phone: 1(448)[address] [place], [place] 9676602-10-2024 12:56-0500 Body cjlbuereqca51.7 [degF]MD Delgado Valdez Work Phone: 1(844)[address] [place], [place] 9676601-18-2024 10:39-0500 Diastolic blood dznvhnyf13 mm[Hg]MD Delgado Valdez Work Phone: 1(867)[address] [place], [place] 9676601-18-2024 10:39-0500 Heart rate81 /minMD Delgado Valdez Work Phone: 1(831)[address] [place], [place] 9676601-18-2024 10:39-0500 Inhaled oxygen flow rate4 L/minMD Delgado Pedrozater Work Phone: 1(248)[address] [place], [place] 9676601-18-2024 10:39-0500 Respiratory rate22 /min Delgado Valdez Work Phone: 1(903)[address] [place], [place] 9676601-18-2024 10:39-0500 SaO2% (BldA) [Mass fraction]98 %MD Delgado Valdez Work Phone: 1(528)[address] [place], [place] 9676601-18-2024 10:39-0500 Systolic blood esdtutet907 mm[Hg]MD Delgado Valdez Work Phone: 1(993)[address] [place], [place] 9676601-18-2024 08:50-0500 Inhaled oxygen xokhdqblatdqf350 %MD Delgado Valdez Work Phone: 1(454)465-[address] [place], [place] 0706901-18-2024 08:40-0500 Body jutybu586.4 cmMD Delgado Pedrozater Work Phone: 1(480)[address]01-18-2024 08:40-0500 Body yvbquiidrjr45.8 [degF]MD Delgado Valdez Work Phone: 1(902)[address]01-18-2024 08:40-0500 Body iccaqe88.2 kgMD Delgado Pedrozater Work Phone: 1(065)[address] [place], [place] 9676612-11-2023 14:00-0500 Body oztobm075.7 cmMD Delgado Pedrozater Work Phone: 1(060)[address] [place], [place] 9676612-11-2023 14:00-0500 Body .72 kgMD Delgado Valdez Work Phone: 1(016)[address]12-11-2023 14:00-0500 Diastolic blood dfqemvsx30 mm[Hg]MD Delgado Valdez Work Phone: 1(324)[address]12-11-2023 14:00-0500 Systolic blood hkcxrylg189 mm[Hg]MD Delgado Valdez Work Phone: 1(992)[address]09-18-2023 11:00-0400 Body wglxiz474.7 cmChrfernando Lindsay Other [facility] Other 09-18-2023 11:00-0400Body mass index (BMI) [Ratio] 43.46 kg/v5Cwystxtpcfk Neftali Other [facility] Other 09-18-2023 11:00-0400Body ozysxxbnvua46.4 [degF] Aryan Lindsay Other [facility] Other 09-18-2023 11:00-0400Body tjcjqu05.82 kgChristopher Neftali Other [facility] Other 09-18-2023 11:00-0400Diastolic blood eulgdinc60 mm[Hg] Christyousifer Neftali Other [facility] Other 09-18-2023 11:00-0400Respiratory rate20 /min Christyousifer Neftali Other [facility] Other 09-18-2023 11:00-3857VhZ6% (BldA) [Mass fraction] Christyousifer Neftali Other [facility] Other 09-18-2023 11:00-0400Systolic blood qhpjubuv530 mm[Hg] Thomaser Neftali Other [facility] Other 09-02-2023 17:56-0400Diastolic blood zxpxnhyr37 mm[Hg] MD Delgado Valdez Work Phone: [facility]09-02-2023 17:56-0400 Heart rate66 /minMD Delgado Pedrozater Work Phone: [facility]09-02-2023 17:56-0400 Inhaled oxygen flow rate2 L/minMD Delgado Valdez Work Phone: [facility]09-02-2023 17:56-0400 Respiratory rate18 /minMD Delgado Pedrozater Work Phone: [facility]09-02-2023 17:56-0400 SaO2% (BldA) [Mass fraction]96 %MD Delgado Valdez Work Phone: [facility]09-02-2023 17:56-0400 Systolic blood qvneirht193 mm[Hg]MD Delgado Valdez Work Phone: 1(419)[address] [place], [place] [id number] 16:21-0400 Body gnymoz408.7 cmMD Delgado Valdez Work Phone: 1(337)[address] [place], [place] [id number] 16:21-0400 Body zcebvuusdpv08.4 [degF]MD Delgado Valdez Work Phone: 1(415)[address] [place], [place] [id number] 16:21-0400 Body zulhlu63.1 kgMD Delgado Pedrozater Work Phone: 1(359)[address] [place], [place] [id number] 16:08-0400 Heart rate73 /minMD Delgado Valdez Work Phone: 1(640)[address] [place], [place] [id number] 16:08-0400 Respiratory rate20 /minMD Delgado Pedrozater Work Phone: 1(766)[address] [place], [place] [id number] 16:04-0400 Inhaled oxygen flow rate2 L/minMD Delgado Pedrozater Work Phone: 1(226)[address] [place], [place] [id number] 16:04-0400 SaO2% (BldA) [Mass fraction]96 %MD Delgado Valdez Work Phone: 1(829)[address] [place], [place] [id number] 11:40-0400 Body zxfycilqalk24.9 [degF]MD Delgado Valdez Work Phone: 1(608)[address] [place], [place] [id number] 11:40-0400 Diastolic blood xaiofsao00 mm[Hg]MD Delgado Valdez Work Phone: 1(986)[address] [place], [place] [id number] 11:40-0400 Systolic blood rlqxwruj983 mm[Hg]MD Delgado Valdez Work Phone: 1(812)[address] [place], [place] [id number] 05:46-0400 Body .6 kgMD Delgado Valdez Work Phone: 1(278)[address] [place], [place] [id number] 04:50-0400 Inhaled oxygen vlvkapcdwmhvq46 %MD Delgado Valdez Work Phone: 1(419)[address] [place], [place] [id number] 12:00-0400 Body xtxtblbsaah20.6 [degF]MD Delgado Valdez Work Phone: [phone] [place], [place] [id number] 12:00-0400 Diastolic blood rleemtdd64 mm[Hg]MD Delgado Valdez Work Phone: [phone] [place], [place] [id number] 12:00-0400 Heart rate80 /minMD Delgado Pedrozater Work Phone: [phone] [place], [place] [id number] 12:00-0400 Inhaled oxygen flow rate6 L/minMD Delgado Pedrozater Work Phone: [phone] [place], [place] [id number] 12:00-0400 Respiratory rate18 /minMD Delgado Valdez Work Phone: [phone] [place], [place] [id number] 12:00-0400 SaO2% (BldA) [Mass fraction]93 %MD Delgado Valdez Work Phone: [phone] [place], [place] [id number] 12:00-0400 Systolic blood kyaoevor156 mm[Hg]MD Delgado Valdez Work Phone: [phone] [place], [place] [id number] 06:00-0400 Body .3 kgMD Delgado Valdez Work Phone: [phone] [place], [place] [id number] 03:18-0400 Inhaled oxygen nyysgthscelsx59 %MD Delgado Valdez Work Phone: [phone] [place], [place] 9676604-30-2023 00:46-0400 Body .16 cmMD Delgado Valdez Work Phone: [phone] [place], [place] 9676604-30-2023 00:23-0400 Diastolic blood stnoosds37 mm[Hg]MD Delgado Valdez Work Phone: [phone] [place], [place] 9676604-30-2023 00:23-0400 Heart rate86 /minMD Delgado Valdez Work Phone: [phone] [place], [place] 9676604-30-2023 00:23-0400 Inhaled oxygen flow rate2 L/minMD Natarajan Valdez Work Phone: [phone]04-30-2023 00:23-0400 Respiratory rate22 /minMD Natarajan Valdez Work Phone: [facility]04-30-2023 00:23-0400 SaO2% (BldA) [Mass fraction]94 %MD Delgado Pedrozater Work Phone: [phone]04-30-2023 00:23-0400 Systolic blood jiasdtfp464 mm[Hg]MD Delgado Valdez Work Phone: [phone] [place], [place] [address]6904-29-2023 23:20-0400 Body rtqaujakcpf20 [degF]MD Delgado Pedrozater Work Phone: [phone]04-29-2023 19:25-0400 Body uynllv709.16 cmNorth[facility] Centerjamel [facility] Work Phone: [phone] [place], [place] [address]6904-29-2023 19:25-0400 Body vjwbag20 kgMD Delgado Valdez Work Phone: [phone] [place] [address] Encounters Encounter DateEncounter TypeCare ProviderFacilityStart: 12-29-2024 End: 12-39-3681Isbzfz outpatient visit 25 minutesAlize Arrington [employer]ER Work Phone: [facility] MedicineComment on above:Chronic obstructive pulmonary disease, unspecified COPD type (HCC) (Primary Dx); IFG (impaired fasting glucose); Generalized anxiety disorder; Down syndrome (HHS-HCC)Start: 12-29-2024 End: 91-52-3030qnuhzlfpovDYQOHGR R LAUSENot AvailableStart: 12-08-2024 End: 06-42-9482Snekvtfmn encounterLeannhowie Craft DO Work Phone: noms [facility] PulmonologyStart: 11-10-2024 End: 41-04-4411Zvtzny flowsheetAlize Arrington [employer]ER Work Phone: noMS [facility] MedicineStart: 11-10-2024 End: 65-52-8072Rywfsk flowskevinAlize Arrington [employer]ER Work Phone: noMS [facility] MedicineStart: 11-10-2024 End: 55-87-9475Mxqlue outpatient visit 15 minutesAlize Arrington [employer]ER Work Phone: noms [facility] MedicineComment on above: Encounter for completion of form with patient (Primary Dx)Start: 11-10-2024 End: 50-72-4393zhuwmbeydiBSSEMNZ R LAUSENot AvailableStart: 11-03-2024 End: 61-54-6514Gdafce flowsFiona Sales AUD Work Phone: noMS [facility] AudiologyStart: 11-03-2024 End: 65-88-1078Olhppz Cindy Sales AUD Work Phone: noms [facility] AudiologyStart: 11-03-2024 End: 41-86-3800Wrnucdm encounter procedureDagmar Sales AUD Work Phone: noms [facility] AudiologyComment on above: Sensorineural hearing loss, bilateral (Primary Dx)Start: 11-03-2024 End: 32-28-5172hmhrgvacsdXYTUVXD S WRIGHTNot AvailableStart: 10-20-2024 End: 63-24-7062Oehzed outpatient visit 15 minutesRaymon Pepper DPM Work Phone: no [facility] PodiatryComment on above:Tinea pedis, unspecified laterality (Primary Dx); Type 2 diabetes mellitus without complication, 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); Pain due to onychomycosis of toenails of both feetStart: 10-20-2024 End: 87-55-2020Gfetbz Doc Pepper DPM Work Phone: no [facility] PodiatryStart: 10-20-2024 End: 61-77-7338Cqyhko flowsToy Pepper DPM Work Phone: noms [facility] PodiatryStart: 10-20-2024 End: 29-11-8945euwdcjgldeYPXIAJMN A BROWNNot AvailableStart: 10-14-2024 End: 87-69-7813seocfsibzjAVDAQS K STRACKNot AvailableStart: 10-14-2024 End: 87-71-0343Nhyzhe outpatient visit 25 minutesPatsy Craft DO Work Phone: noms [facility] PulmonologyComment on above: Obstructive sleep apnea (adult) (pediatric) (Primary Dx)Start: 10-13-2024 End: 40-15-1132Wjdgvkspj identifierEric Cook DDS Work Phone: [facility] ClinicStart: 20-72-5891kkvxzedyrePxgf Cook [facility] DEPARTMENTStart: 10-13-2024 End: 46-04-9903Npnvfs flowsheetJessica R Lause S[employer] MA[employer]ER Work Phone: noMS [facility] MedicineStart: 10-13-2024 End: 17-00-3304Zdaqyz flowsheetJessica R Lause [employer] MAKER Work Phone: noms [facility] MedicineStart: 10-13-2024 End: 95-29-1492Jleebk OnlyJessica R Lause [employer]KER Work Phone: noms External Department UnsolicitedStart: 10-13-2024 End: 31-19-2683Yqaedeagl encounterRaymon Pepper DPM Work Phone: noms [facility] PodiatryStart: 10-13-2024 End: 27-45-1148Mopwai outpatient visit 25 minutesJessica R Lause S[employer] MAKER Work Phone: noMS [facility] MedicineComment on above: Breakthrough seizure (HCC) (Primary Dx); Hyperlipidemia, unspecified hyperlipidemia type ; Hypothyroidism, unspecified type ; Candidiasis of breast; Non-recurrent acute suppurative otitis media of both ears without spontaneous rupture of tympanic membranes; Recurrent UTI; Vaginal yeast infection; Hospital discharge follow-upStart: 10-13-2024 End: 30-37-9010jbxprhkqzmNGDIBCH R LAUSENot AvailableStart: 10-11-2024 End: 08-97-0726Jdtsato encounter procedureSiker Sebastian APRN-FNP-C-Lab [facility] [place] Work Phone: Start: 10-11-2024 End: 71-90-5169swdxznpswvQwctr Baxter MD Work Phone: [facility] Work Phone: Start: 10-07-2024 End: 86-20-2251xjutgwdjutBgyle Baxter MD Work Phone: [facility] Work Phone: Start: 10-07-2024 End: 85-70-3091Gxjdyja encounter procedureSiker Sebastian APRN-FNP-C-FPG Neurology [place] Work Phone: Start: 10-05-2024 End: 98-58-7955Ipirmqzvu department patient visitDelgado Valdez MD Work Phone: [phone]-Xxswtoipl Room Work Phone: Start: 10-05-2024 End: 30-62-6891Kulcumyta department patient visitDelgado Valdez MD Work Phone: [phone]-Jjutxsmyx Room Work Phone: Start: 10-04-2024 End: 08-01-2873Pkcdmiaxu department patient visitDelgado Valdez MD Work Phone: [phone]-Mqborxakw Room Work Phone: Start: 19-11-7996Jrt-patient / Non-visitTifCatskill [facility] Work Phone: Start: 08-30-2024 End: 19-46-7596Klmdmd OnlyAlize Arrington NP Work Phone: NONM SEP FMComment on above:Hyperlipidemia, unspecified hyperlipidemia typeStart: 08-26-2024 End: 03-64-0961Instav OnlyJekacey Thompson Terell [employer]KER Work Phone: NOM[facility] SEP FMComment on above:Slow transit constipation; Drug-induced constipationStart: 08-25-2024 End: 32-80-6215Hwnukki encounter procedureAlize Georgia Terell [employer] NPC-Lab [facility] Work Phone: Start: 08-25-2024 End: 98-30-0114etrpizwadpBbvlg Baxter MD Work Phone: [facility] Work Phone: Start: 57-70-1025Vkqokyweo for general adult medical examination without abnormal findingsAlize ArringtonNch Healthcare System - [facility] Physician GroupStart: 08-24-2024 End: 87-16-1215Nwkwzf flowsheetSilvia Azul [employer] CCC-A Work Phone: NOM[facility] SH AUDStart: 08-24-2024 End: 46-83-1711Puloah flowsheetHunterdon Medical Center Latha Joyce CCC-A Work Phone: [facility] SH AUDStart: 08-24-2024 End: 52-11-5260Legoovxz SupportSilvia Azul Joyce CCC-A Work Phone: N[facility] SH AUDComment on above:Sensorineural hearing loss, bilateral (Primary Dx)Start: 08-19-2024 End: 67-71-9097Vepxuzjft encounterRaymon Pepper DPM Work Phone: [facility] SC PODStart: 08-11-2024 End: 56-05-7013Mxcglo flowsFiona Sales AUD Work Phone: [facility] SH AUDStart: 08-11-2024 End: 33-61-2546Rduynp flowsFiona Sales AUD Work Phone: [facility] SH AUDStart: 08-11-2024 End: 78-76-0985Jmuvcbm encounter procedureDagmar Sales AUD Work Phone: N[facility] SH AUDComment on above:Sensorineural hearing loss, bilateral (Primary Dx); Diabetes mellitus due to underlying condition with diabetic neuropathy, unspecified whether penitentiary insulin use (HCC); Urinary tract infection with hematuria, site unspecifiedStart: 08-11-2024 End: 58-58-4143hrclmtugfkMWWOBFRYolis Finley AvailableStart: 08-06-2024 End: 42-21-5253Hbqxun outpatient visit 15 minutesRaymon Pepper DPM Work Phone: [facility] PODComment on above:Tinea pedis, unspecified laterality (Primary Dx); Type 2 diabetes mellitus without complication, 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); Pain due to onychomycosis of toenails of both feetStart: 08-06-2024 End: 25-24-1494yvxthdpufrCPNKTSNV A BROWNNot AvailableStart: 08-06-2024 End: 98-54-9980Pdkkru Doc Pepper DPM Work Phone: [facility] PODStart: 08-06-2024 End: 27-58-7025Avlauh Doc Pepper DPM Work Phone: [facility] VA PODStart: 07-22-2024 End: 39-07-2570Zmsxwt outpatient new 45 minutesPatsy Craft DO Work Phone: N[facility] PULMComment on above:History of obstructive sleep apnea; Oxygen dependentStart: 07-22-2024 End: 17-41-4145vikuvbrcldKIMHWM K STRACKNot AvailableStart: 07-22-2024 End: 71-87-4811Pstiol flowsheetLeanne Robbie Venancio DO Work Phone: [facility] PULMStart: 07-22-2024 End: 17-27-3377Dmmyeo flowsheetLeanne K Venancio DO Work Phone: [facility] PULMStart: 07-05-2024 End: 88-68-8132Mjkzwlnvm encounterRaymon Pepper DPM Work Phone: [facility] SC PODComment on above:Med RefillStart: 06-30-2024 End: 95-45-0886Revcsb outpatient visit 25 minutesAlize Arrington [employer]ER Work Phone: noms SEP FMComment on above:Recurrent UTI (Primary Dx); Type 2 diabetes mellitus without complication, unspecified whether penitentiary insulin useStart: 06-30-2024 End: 04-20-1610knepxcwtugJCTJUUJ R LAUSENot AvailableStart: 06-23-2024 End: 70-43-8864plhbetcqgkWECXRRZE E PERRYFacility:EU [place]kyStart: 06-23-2024 End: 32-13-3463Uoltuo flowsheetAngela Lowe PA Work Phone: ana SANDUSKYStart: 06-23-2024 End: 24-83-0407Xxvccp flowsheetAngela Lowe PA Work Phone: aNA SANDUSKYStart: 06-23-2024 End: 47-44-1922Oeaham outpatient visit 25 minutesAngela Lowe PA Work Phone: aNA SANDUSKYComment on above:Seizure disorder (CMS/HCC) (Primary Dx)Start: 06-23-2024 End: 23-14-2510lvkbklohgcQOZMKF LOWENot AvailableStart: 26-52-7104famhwzlfvs KELSEY PERRYFacility:EU [place]walkStart: 05-25-2024 End: 25-94-2123Xqumpqtrg department patient visitDelgado Valdez MD Work Phone: [facility]-Emer[facility] Work Phone: Start: 05-25-2024 End: 94-81-9506Vtdxje outpatient visit 15 minutesDelgado Valdez MD Work Phone: noms SEP FMComment on above:Dysuria (Primary Dx); Frequent UTIStart: 05-25-2024 End: 60-41-0211idaaadypeaHFJYJ A BAXTERNot AvailableStart: 05-19-2024 End: 90-75-6379MmlxtsWumnx A Baxter MD Work Phone: noms SEP FMComment on above:Hypothyroidism, unspecified type (CMS/HCC); Drug-induced constipation; Hyperlipidemia, unspecified hyperlipidemia type (CMS/HCC); Seizure disorder (CMS/HCC)Start: 05-07-2024 End: 02-18-7481ioecfvdqitQXAQNPKB Latha Villanueva AvailableStart: 04-28-2024 End: 67-89-4891Npzlwq outpatient visit 25 minutesJessica R Lause [employer] Work Phone: noms SEP FMComment on above:Frequent UTI (Primary Dx); Dysuria; Bilateral hearing loss, unspecified hearing loss typeStart: 04-28-2024 End: 41-13-4177ctktttspboVLAUPXE R LAUSENot AvailableStart: 04-24-2024 End: 46-92-9066Ijredshio department patient visitDelgado Valdez MD Work Phone: [facility] Work Phone: Start: 04-19-2024 End: 72-03-6126Rgsvhsxja department patient visitDelgado Valdez MD Work Phone: [facility] Work Phone: Start: 04-14-2024 End: 24-96-2130Oliwum flowsheetJessica R Lause [employer]ER Work Phone: noms SEP FMStart: 04-14-2024 End: 53-78-9052Psvyvk flowsheetJessica R Lause [employer]ER Work Phone: noms SEP FMStart: 04-14-2024 End: 34-12-9172Vubfn of hemosiderin, quantJessica R Lause S[employer] MAKER Work Phone: noms HealthcareStart: 04-14-2024 End: 32-47-9686Qvicdck encounter procedureJessica R Lause [employer]KER Work Phone: noms HealthcareStart: 04-14-2024 End: 30-42-0232Kchxrzgm preventive med est patient 40-64yrsJessica R Lause S[employer] MAKER Work Phone: noms SEP FMComment on above:Candidiasis of breast (Primary Dx); Type 2 diabetes mellitus without complication, unspecified whether penitentiary insulin use (CMS/HCC); Chronic obstructive pulmonary disease, unspecified COPD type (CMS/HCC); Hypothyroidism, unspecified type (CMS/HCC); Encounter for annual wellness visit (AWV) in Medicare patient; Routine general medical examination at health care facility; Obesity (BMI 30-39.9)Start: 04-14-2024 End: 31-87-3451dutqkatancVQGZCVD R LAUSENot AvailableStart: 04-14-2024 End: 45-66-6337Rzrluuq encounter procedureDelgado Valdez MD Work Phone: [facility] Work Phone: Start: 04-14-2024 End: 29-30-1405wtsahrbqccQgqia Baxter MD Work Phone: [facility] Work Phone: Start: 04-06-2024 End: 22-19-4107VipfijYpmpyhfs A Brown DPM Work Phone: noms SC PODComment on above:TineaStart: 02-27-2024 End: 01-68-1261Oaqiva outpatient visit 15 minutesRaymon Pepper DPM Work Phone: noms SC PODComment on above:Tinea pedis, unspecified laterality (Primary Dx); Type 2 diabetes mellitus without complication, 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 ([facility]); Pain due to onychomycosis of toenails of both feet; TineaStart: 02-27-2024 End: 06-21-1690ernlpnbythVAGTJJCI A BROWNNot AvailableStart: 02-02-2024 End: 64-36-9939wxdbkjviebVKQPIX LOWENot AvailableStart: 02-02-2024 End: 43-35-1348Boyavs outpatient visit 25 minutesAngesteven ALBARRAN Work Phone: noms ST NEUROLOGYComment on above:Transient alteration of awareness (Primary Dx); Seizure disorder (CMS/HCC)Start: 01-28-2024 End: 04-57-9913Yyoias OnlyAlize R Stevenuse S[employer] MAKER Work Phone: noms SEP FMComment on above:Seizure disorder (CMS/HCC) (Primary Dx)Start: 01-26-2024 End: 93-02-8802LagpyhLwedamju A Brown DPM Work Phone: noMS SC PODComment on above:TineaStart: 01-23-2024 End: 24-00-6390EtdhbpZcgoygvi A Brown DPM Work Phone: noMS SC PODComment on above:TineaStart: 01-15-2024 End: 81-92-9258Zbwvsenmm department patient visitDelgado Valdez MD Work Phone: [facility] Work Phone: Start: 01-14-2024 End: 56-53-2722Ezzquz flowsheetJessica R Lause [employer]ER Work Phone: noms SEP FMStart: 01-14-2024 End: 14-73-4299Gjuxlp flowsheetJessica R Lause [employer]ER Work Phone: noms SEP FMStart: 01-14-2024 End: 48-75-9313Yvgwnp outpatient visit 15 minutesJessica R Lause [employer]ER Work Phone: noms SEP FMComment on above:Other specified diabetes mellitus with hyperglycemia, 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 ([facility]) (Primary Dx); Drug-induced constipationStart: 01-14-2024 End: 59-93-9335nnxumhsdppKQXRHOU R LAUSENot AvailableStart: 2023 End: 29-42-4534Btmeti outpatient visit 15 minutesRaymon Pepper DPM Work Phone: noMS SC PODComment on above:Tinea pedis, unspecified laterality (Primary Dx); Type 2 diabetes mellitus without complication, unspecified whether penitentiary insulin use ([facility]); Pain due to onychomycosis of toenails of both feetStart: 2023 End: 85-70-8738Kgdkfx Demetriadoylesandra Pepper DPM Work Phone: [facility]oms [facility] PODStart: 2023 End: 82-78-4636Yszyue Doc Pepper DPM Work Phone: noms [facility] PODStart: 11-04-2023 End: 04-12-2389lyzkwxsnaqRF Delgado Valdez Work Phone: [facility] Work Phone: Start: 11-04-2023 End: 90-05-6219Bvebiol encounter procedureMD Delgado Valdez Work Phone: [facility] [place] Work Phone: Start: 11-04-2023 End: 81-36-5021Dvfnbhjg Result EncounterDelgado Valdez MD Work Phone: noms External Department UnsolicitedStart: 11-04-2023 End: 53-56-1985Mucqqcfc Result EncounterDelgado Valdez MD Work Phone: noms External Department UnsolicitedStart: 10-15-2023 End: 88-18-3585Eqzkzremm department patient visitMD Delgado Valdez Work Phone: [facility] Work Phone: Start: 08-18-2023 End: 37-67-0221pehniikhejBR Brian Baxter Work Phone: [facility] Work Phone: Start: 08-18-2023 End: 37-12-0104Qyrdwuvc ReferredMD Delgado Valdez Work Phone: [facility] [place] Work Phone: Start: 07-26-2023 End: 45-69-2454Whtvmmnfd department patient visitMD Delgado Valdez Work Phone: [facility] Work Phone: Start: 06-27-2023 End: 02-40-9523ghejpofgcqWP Delgado Valdez Work Phone: [facility] Work Phone: Start: 06-27-2023 End: 63-42-2157Qbdqwsxm ReferredMD Delgado Vladez Work Phone: [facility] [place] Work Phone: Start: 06-18-2023 End: 04-12-5609Smr-patient / Non-visitMD Delgado Valdez Work Phone: [facility] Physician [facility] Work Phone: Start: 06-16-2023 End: 05-81-7836Klx-patient / Non-visitMD Delgado Valdez Work Phone: [facility] Palliative Care Work Phone: Start: 06-12-2023 End: 53-13-2660Qos-patient / Non-visitMD Delgado Valdez Work Phone: [facility] Pulmonary Disease Work Phone: Start: 06-11-2023 End: 33-03-0162Igg-patient / Non-visitMD Delgado Valdez Work Phone: [facility] Physician [facility] Work Phone: Start: 06-11-2023 End: 29-74-3317Kocgzypuvm and management of inpatientMD Delgado Valdez Work Phone: [facility] Work Phone: Start: 06-11-2023 End: 69-23-5015Dbsbxlsaw department patient visitBismark Edwards [facility] Start: 05-30-2023 End: 00-97-5490Yuztqdtyd department patient visitMD Delgado Valdez Work Phone: [facility] Work Phone: Start: 05-06-2023 End: 98-93-8631Qjgmpjbof department patient visitMD Delgado Valdez Work Phone: [facility] Work Phone: Start: 04-15-2023 End: 91-60-2959Hvpzutzfd department patient visitMD Delgado Valdez Work Phone: [facility] Work Phone: Start: 34-62-6507Odklea flowsheetJessica R Lause [employer]ER Work Phone: NOSZ SEP FMStart: 21-69-1735Glblxv flowsheetJessica R Lause [employer] MA[employer]ER Work Phone: NOZJ SEP FMStart: 66-56-5726RjlxtrButqsmmq A Brown DPM Work Phone: [facility]oms [facility] PODComment on above:Tinea (Primary Dx)Start: 04-05-2023 End: 17-94-0567Ngsrtrapt department patient visitMD Delgado Valdez Work Phone: [facility] Work Phone: Start: 03-13-2023 End: 76-52-9043Iqoxdygep department patient visitMD Delgado Valdez Work Phone: [facility] Work Phone: Start: 03-03-2023 End: 37-77-4093bcygpcmyxdPC Brian Baxter Work Phone: [facility] Work Phone: Start: 03-03-2023 End: 88-34-8629Sfhtchn encounter procedureMD Delgado Valdez Work Phone: [facility] Work Phone: Start: 02-14-2023 End: 99-01-5789epmwehvfgnMM Brian Baxter Work Phone: [facility] Work Phone: Start: 02-14-2023 End: 55-31-1653Nsvknxy encounter procedureMD Delgado Valdez Work Phone: [facility] [place] Work Phone: Start: 02-03-2023 End: 74-52-1935Gajomnb encounter procedureMD Delgado Valdez Work Phone: [facility] Pulmonary Disease Work Phone: Start: 12-10-2022 End: 75-26-3413fefnznbmwwEbmcfwrerat Neftali Other noBaton Other Start: 92-16-0641Kzowuafgx encounterChristopher AvendanoFPG Pulmonary DiseaseStart: 11-11-2022 End: 55-41-2755mdgmyzpgcuOsnacypejqa Neftali Other noBaton Other Start: 54-80-0173Kyfnot outpatient visit 15 minutes Ezequielopher AvendanoFPG Pulmonary DiseaseStart: 11-06-2022 End: 69-91-7162ybmetxsjdlAV Delgado Valdez Work Phone: [facility] Work Phone: Start: 11-06-2022 End: 91-37-9399Xxoyvcg encounter procedureMD Delgado Valdez Work Phone: [facility] [place] Work Phone: Start: 10-26-2022 End: 43-34-4231Arbwlvnrm department patient visitMD Delgado Valdez Work Phone: [facility] Work Phone: Start: 10-24-2022 End: 82-87-7538fipfxurzjbXO Delgado Valdez Work Phone: [facility] Work Phone: Start: 10-24-2022 End: 36-67-4533Zmnazxx encounter procedureMD Delgado Valdez Work Phone: [facility] [place] Work Phone: Start: 09-13-2022 End: 57-95-9527Jlazmfx encounter procedureMD Delgado Valdez Work Phone: [facility] [place] Work Phone: Start: 06-22-2022 End: 26-08-6018Vzptxjkipm and management of inpatientMD Delgado Valdez Work Phone: [facility] Work Phone: Start: 11-17-2020 End: 83-82-2455luampngywrTAT BRADDOCKFacility:C9Ugsth: 12-15-2019 End: 43-10-8573eijiuvshkuZW DELGADO VALDEZFacility:H1 Procedures DateProcedureProcedure DetailPerforming ClinicianStart: 31-17-1809Yucmdfweal glycosylated h4kXnljsud Donna Arrington [employer] Work Phone: Start: 61-60-0039Wodqdbe bacterial quanttative colony count urineJessica R Terell [employer]ER Work Phone: Start: 02-16-3484UOORH CULTURE CLEAN CATCH REFLEX Alizekacey Arrington [employer]ER Work Phone: Start: 10-13-2024 End: 07-65-5722xrcrqu risk assessment and documentation, with a finding of moderate riskEric Cook DDSStart: 10-13-2024 End: 24-91-6036xacerjgcxxd counseling for control of dental diseaseEric Cook DDSStart: 10-13-2024 End: 44-16-1217nycx hygiene instructionsEric Cook DDSStart: 10-13-2024 End: 72-78-3672bihqvgrkpwm - adultEric Cook DDSStart: 10-13-2024 End: 87-18-5096jdvnxcn application of fluoride varnishEric Cook DDSStart: 44-60-8326Fyhvb dip stick/tablet rgnt non-auto w/o micrscpJessica R Lause [employer] Work Phone: Start: 22-79-5139OR of head without contrastDelgado Valdez MD Work Phone: Start: 76-29-4847LC of head without contrastDelgado Valdez MD Work Phone: Start: 54-53-5889G-ray of thoracic spine, three views Delgado Valdez MD Work Phone: Start: 39-72-3727Lutbkrwk tomography of abdomen and pelvis with contrastDelgado Valdez MD Work Phone: Start: 15-10-8392VA cervical spine without contrast Delgado Valdez MD Work Phone: Start: 41-53-4232CX of head without contrastDelgado Valdez MD Work Phone: Start: 74-23-8182EU of thorax with contrastDelgado Valdez MD Work Phone: Start: 43-98-2184Pzedo cultureDelgado Valdez MD Work Phone: Start: 98-70-9639IZQONAUI FUNCTION TESTSDagmar [place] Work Phone: start: 93-78-2806HW of lumbar spine without contrast Delgado Valdez MD Work Phone: Start: 67-78-1990Zcuip dip stick/tablet rgnt non-auto w/o nahomyscDulce Valdez MD Work Phone: Start: 81-73-8547Ozkgv dip stick/tablet rgnt non-auto w/o micrscpJessica R Lause [employer] Work Phone: Start: 15-44-6383Aublj cultureBrjamel Valdez MD Work Phone: Start: 25-95-0686Vnrnzamodw glycosylated a3kFbdjdck R Lause [employer] Work Phone: Start: 37-70-9698Wjyokiqmi mammography of bilateral breastsDelgado Valdez MD Work Phone: Start: 95-43-5830Nwwkr nucleic acid assayDelgado Valdez MD Work Phone: Start: 17-32-6780VP cervical spine without contrast Delgado Valdez MD Work Phone: Start: 78-97-8218UF of head without contrastDelgado Valdez MD Work Phone: Start: 28-79-2300Sihox chest X-rayDelgado Valdez MD Work Phone: Start: 83-57-0084Tsvafirjxb glycosylated v7hSyqytbk R Lause [employer] Work Phone: Start: 48-68-8327Xrugj dip stick/tablet reagent auto microscopyBrjamel Valdez MD Work Phone: Start: 65-79-7528Iwfup cultureMD Delgado Valdez Work Phone: Start: 73-56-8290Ucrxk cultureMD Delgado Valdez Work Phone: Start: 47-56-2032LM of chest without contrastMD Delgado Valdez Work Phone: Start: 94-52-2349Bzgmv chest X-rayMD Delgado Valdez Work Phone: Start: 57-95-1654Amflg chest X-rayMD Delgado Valdez Work Phone: Start: 40-23-3876AL cervical spine without contrastMD Delgado Valdez Work Phone: Start: 99-62-3995GA of head without contrastMD Delgado [employer] Work Phone: Start: 79-58-1043Zhpmv chest X-rayMD Delgado [employer] Work Phone: Start: 97-30-4462Y-ray of right kneeMD Delgado [employer] Work Phone: Start: 32-38-8227A-ray of lumbar spine, four or more viewsMD Delgado Pedrozater Work Phone: Start: 12-50-8639Vaaug cultureMD Delgado [employer] Work Phone: Start: 97-86-5480RNQK-CoV-2, Influenza & RSV (PCR) Delgado José Miguel Work Phone: Start: 69-50-3766Kwewx chest X-rayMD Delgado Pedrozater Work Phone: Start: 24-74-6271Djrnm chest X-rayMD Delgado Pedrozater Work Phone: Start: 03-03-2023 End: 26-25-3292Sstdxycev mammography of bilateral breastsMD Delgado [employer] Work Phone: Start: 34-87-0725Bsqnymbxfln Panel (PCR) Delgado Valdez Work Phone: Start: 26-88-8727Ickki chest X-rayMD Delgado Pedrozater Work Phone: Start: 42-69-7864Wrfvj chest X-rayMD Delgado Valdez Work Phone: Start: 50-07-6169Hvwyy chest X-rayMD Delgado [employer] Work Phone: Start: 28-21-1361Vmzgj chest X-rayMD Delgado [employer] Work Phone: Start: 23-88-7838Yxpph chest X-rayMD Delgado [employer] Work Phone: Start: 52-78-3658Tlcfb chest X-rayMD Delgado [employer] Work Phone: Start: 20-24-6755Cgynd chest X-rayMD Delgado [employer] Work Phone: Start: 58-36-1422Gjxup chest X-rayMD Delgado [employer] Work Phone: Start: 68-16-7488Bqhwl cultureMD Delgado [employer] Work Phone: Start: 04-57-6863VF of chest without contrastMD [facility] Work Phone: Start: 14-01-3282JZ of head without contrastMD [facility] Work Phone: Start: 52-43-5212Esffp chest X-rayMD Delgado [employer] Work Phone: Start: 99-08-2442Textd culture for bacteria, including anaerobic screenKY [facility] Work Phone: Start: 03-21-6847PVYD-CoV-2, Influenza & RSV (PCR) Delgado [employer] Work Phone: Plan of Treatment DateCare ActivityDetailAuthorStart: 17-69-8748RPxY/Tdap/Td Vaccines (6 - Td or Tdap)DTaP/Tdap/Td Vaccines (6 - Td or Tdap)[facility] HealthcareStart: 2025 Glaucoma screeningDiabetes: Retinopathy ScreeningNOMS HealthcareStart: 33-37-3856Zlbfedxlv vaccinationInfluenza Vaccine (#1)[facility] HealthcareComment on above:Postponed from 10/25/2024 (Patient Refused)Start: 06-29-2025 End: 41-82-6722Hoxkfbx encounter pgmihaaix73/06/2026 10:00 AM EDT Office Visit [facility] [address] [place] [address] Alize Arrington, [employer] [address] [place] [address] [facility] MedicineStart: 20-29-0996Kofzzgtclb A1c measurementDiabetes: Hemoglobin D8VJXCE Healthcare Start: 24-21-3963Abtkesqyh for malignant neoplasm of breastMammogramNONM HealthcareStart: 56-76-4124Vybvn, [facility] Work Phone: Start: 04-20-2025 End: 76-78-1278Wovatbn encounter /25/2026 10:00 AM EST [facility] [address] [place] [address] Alize Arrington NP [address] [place] [address] [facility] [place] MedicineStart: 02-19-2026Medicare Annual Wellness (AWV)Medicare Annual Wellness (AWV)[facility] HealthcareStart: 84-99-9339Crtzp screening for proteinDiabetes: Urine Protein ScreeningNONM HealthcareStart: 02-03-2025 End: 42-29-4295Sahbduk encounter rydumezgg13/11/2025 3:00 PM EST [facility] [address] [place] [address] Patsy Craft, [address] [place] [address] [facility] PulmonologyStart: 01-12-2025 End: 58-04-8597Qcrcbfp encounter umhutbckm76/19/2025 2:00 PM EST Procedure [facility] [address] [place] [address] Raymon Pepper DPM [address] [address] [facility] PodiatryStart: 31-09-6097Fxahjcvybh A1c measurementDiabetes: Hemoglobin Q3FSWTE Healthcare Start: 12-29-2024 End: 38-55-1296Ziedwex encounter procedureNO SEP FMStart: 11-10-2024 End: 17-62-0472Sujrtyk encounter sonqqszpd39/17/2025 1:00 PM EDT Office Visit [facility] [address] [place] [address] Alize Arrington NP [address] [place] [address] [facility] Comment on above:ArrivedStart: 11-03-2024 End: 46-71-4936Otddrob encounter procedureNOMS [place] Borden AudiologyComment on above:ArrivedStart: 18-62-5842IMBLG-19 Vaccine ( season)COVID-19 Vaccine ( season)[facility] HealthcareStart: 83-98-9106Xxnowrrtd vaccinationNONM HealthcareStart: 10-20-2024 End: 60-63-9234Pnhbhju encounter procedureNO Ute Hughes PodiatryComment on above:Tinea pedis, unspecified laterality (Primary Dx); Type 2 diabetes mellitus without complication, 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); Pain due to onychomycosis of toenails of both feetStart: 10-15-2024 End: 68-92-6789Guptwif encounter mcwlehoha94/22/2025 3:00 PM EDT Procedure Visit [facility] [address] [place] [address] Raymon Pepper DPM [address] [address] [facility] TIM PODStart: 10-14-2024 End: 96-26-8617Hnbfpcs encounter procedureNO JU PULMStart: 10-13-2024 End: 14-32-6700Zvngzxud identified in Urine by CultureUrine culture (clean catch) Microbiology Routine Recurrent UTI Expected: 10/13/2024 (Approximate), E xpires: 10/13/2025NOCitizens Memorial Healthcare Work Phone: Comment on above:Expected: 10/13/2024 (Approximate), Expires: 10/13/2025Start: 10-13-2024 End: 56-46-6687Jmiircu encounter procedureNORANDOLPH MEDICAL CENTER FMComment on above:Arrived Start: 60-67-3692Ymgqejokjp A1c measurementDiabetes: Hemoglobin K0ADKZMMissouri Baptist Medical CenterStart: 10-06-2024 End: 42-83-8661Srelyxt encounter nasyofupb78/13/2025 1:00 PM EDT Office Visit [facility] [address] [place] [address] Alize Arrington, [employer] [address] [place] [address] [facility] FMStart: 14-15-4573CmpqzpbxlFlower Hospital Start: 10-04-2024 End: 62-35-3372Dffnt cultureFisher-Titus Medical Centertart: 10-04-2024 Bacteria identified in Urine by CultureUrine CultureFisher-Titus Medical Centertart: 09-22-2024 End: 52-31-2451Zhedzfw encounter pbrbdaxwm92/30/2025 8:20 AM EDT Office Visit [facility] [place] [address] [address] [place] [address] Shavon Sebastian, MARTHA [address] [place] [address] [facility] HOLLINGSWORTHYStart: 08-24-2024 End: 11-61-5988Yfnbbggv Tecycgy2708/24/2024 10:30 AM EDT Clinical Support [facility]UD [address] [facility] [place] [address] Silvia Ramirez, [facility] [address] [place] [address] ArrivedGARFIELD COUNTY [facility] AUDComment on above:ArrivedStart: 08-23-2024 Influenza vaccinationInfluenza Vaccine (#1)[facility] HealthcareComment on above: Postponed from 10/26/2023 (Patient Refused)Start: 08-11-2024 End: 87-18-6903Ppocxql encounter procedureNOMS SH AUDComment on above:Diabetes mellitus due to underlying condition with diabetic neuropathy, 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); Urinary tract infection with hematuria, site unspecifiedStart: 08-06-2024 End: 68-12-5319Rmqptwt encounter procedureNOMS VA PODComment on above:Tinea pedis, unspecified laterality (Primary Dx); Type 2 diabetes mellitus without complication, 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); Pain due to onychomycosis of toenails of both feetStart: 08-04-2024 End: 86-02-8923Xpxfcoy encounter sdsvuwlft90/11/2025 8:20 AM EDT Office Visit [facility] [place] [address] [facility] [address] [place] [address] Shavon Sebastian NP [address] [facility] [address] [place] [address] [facility] HOLLINGSWORTHYStart: 07-30-2024 End: 16-09-3546Uxyiiun encounter aimosasbf35/06/2025 2:30 PM EDT Procedure Visit [facility] [address] [place] [address] Raymon ePpper DPM [address] [facility] [address] [place] [address] [facility] VA PODStart: 07-22-2024 End: 73-59-3854Xcttxow encounter procedureNOMS PULMComment on above:History of obstructive sleep apnea; Oxygen dependentStart: 82-68-9262Oimpldvopx A1c measurementDiabetes: Hemoglobin B2JPEZU HealthcareStart: 06-30-2024 End: 43-27-7054Laidwgo encounter /07/2025 10:00 AM EDT Office Visit [facility] [address] [place] [address] Alize Arrington NP [address] [place] [address] CANDACE SEP FMStart: 06-23-2024 End: 44-39-1934Tqtaebs encounter deejirqxl93/30/2025 10:20 AM EDT Office Visit [facility] [place] [address] [facility] [address] [place] [address] Briseyda Franks PA [address] [place] [address] ArrivedSANTOS HOLLINGSWORTHYComment on above:ArrivedStart: 06-10-2024 Urine screening for proteinDiabetes: Urine Protein ScreeningMissouri Baptist Medical Center Start: 05-26-2024 End: 66-16-6884Wgnjlvq encounter procedureNOSEARCY HOSPITAL NEUROLOGYStart: 05-25-2024 Urine cultureFisher-Titus Medical Centertart: 65-56-5570Byiutpig identified in Urine by CultureUrine [facility] Start: 05-25-2024 End: 18-48-7138CZGMFQC TRACT INFECTION (HTRX)URINARY TRACT INFECTION (HTRX) Lab Routine Frequent UTI Expected: 05/25/2024 (Approximate), Expires: 05/25/2025NOCitizens Memorial Healthcare Work Phone: Comment on above:Expected: 05/25/2024 (Approximate), Expires: 05/25/2025Start: 05-07-2024 End: 56-89-8994Igibkqz encounter xgprsmvyc85/14/2025 2:30 PM EDT Procedure Visit [facility] [address] [place] [address] Raymon Pepper DPM [address] [facility] 5 [place] [address] CANDACE DUMONT PODStart: 28-10-4210Kkwumiyznmc of [facility] Centertart: 22-90-4276Cttjrugz identified in Urine by Culture Urine [facility] Hospitaltart: 81-07-0893Lhhopmifxbl of [facility] Centertart: 06-28-5167Yoatr Lutheran Hospitaltart: 10-22-3797Frbumlurtn A1c measurement Diabetes: Hemoglobin Q2YMXND HealthcareStart: 04-14-2024 End: 34-72-5948Lnrscza encounter procedureNORANDOLPH MEDICAL CENTER FMComment on above:Arrived Start: 11-22-8750Vgqorgkl screeningDiabetes: Retinopathy ScreeningNONM HealthcareStart: 01-08-2025Medicare Annual Wellness (AWV)Medicare Annual Wellness (AWV)[facility] HealthcareStart: 44-99-8747Tlrjjonrs for malignant neoplasm of breastMammogramNONM HealthcareStart: 02-27-2024 End: 10-66-9976Aalxtob encounter vqlnsvydd95/03/2025 2:30 PM EST Procedure Visit [facility] [address] [place] [address] Raymon Pepper DPM [address] [facility] 5 [place] [address] [facility] VA PODStart: 02-02-2024 End: 83-33-3719Xgglvqu encounter /09/2024 2:40 PM EST Office Visit [facility] [address] [facility] [address] [place] [address] Briseyda Franks PA [address] [place] [address] [facility] NEUROLOGYStart: 12-04-2024Medicare Annual Wellness (AWV)Medicare Annual Wellness (AWV)[facility] HealthcareStart: 11-18-1333Jfcuw screening for proteinDiabetes: Urine Protein ScreeningNONM HealthcareStart: 58-13-4727Ihvsofys identified in Urine by CultureUrine [facility] Hospitaltart: 38-97-6458Dzmeb [facility] Start: 54-31-6779Xxtxvbolbbq of [facility] Centertart: 01-14-2024 End: 07-62-2509Vmhqozy encounter skofumogz58/20/2024 1:20 PM EST [facility] [address] [place] [address] Alize Arrington NP [address] [place] [address] ArrivedNORANDOLPH MEDICAL CENTER FMComment on above:ArrivedStart: 2023 End: 71-74-8448Srpyeqh encounter procedureNOINTEGRIS [facility] [place] PODComment on above:Tinea pedis, unspecified laterality (Primary Dx); Type 2 diabetes mellitus without complication, unspecified whether penitentiary insulin use ([facility]/HCC); Pain due to onychomycosis of toenails of both feetStart: 45-21-5797Tjnvedoynj A1c measurementDiabetes: Hemoglobin C7VBJIB HealthcareStart: 98-79-4697Fazvsjul identified in Urine by CultureFisher-Titus Medical Centertart: 10-26-2023 Influenza vaccinationInfluenza Vaccine (#1)[facility] HealthcareStart: 10-15-2023 Referral to Social ServicesFisher-Titus Medical Centertart: 08-24-2023 Influenza vaccinationInfluenza Vaccine (#1)[facility] HealthcareComment on above: Postponed from 10/25/2022 (Patient Refused)Start: 79-47-3634OokepbhitFisher-Titus Medical Centertart: 61-86-8496Mytxlvkc identified in Urine by CultureUrine CultureFisher-Titus Medical Centertart: 43-70-7793PjfzaqkohFisher-Titus Medical Centertart: 10-17-6548Hpjndzgw to hospiceFisher-Titus Medical Centertart: 06-16-2023 End: 08-04-7991Xmpnruu encounter txnircwmk23/22/2024 4:00 PM EDT Office Visit [facility] [address] [place] [address] Nemo Kennedy NP [address] [place] [address] [facility] FMStart: 68-51-1616KlvxphvpdFisher-Titus Medical Centertart: 12-45-9367Ebcicbdh to palliative care physicianFlower Hospital Start: 06-15-2023 End: 40-15-4594MxnrtgapiFisher-Titus Medical Centertart: 73-94-9486Nxyevlctbvwcmw of prophylactic treatmentFisher-Titus Medical Centertart: 06-12-2023 ConsultationFisher-Titus Medical Centertart: 36-35-7867Hnffuaso admission [facility] Centertart: 05-20-2023 End: 35-03-7661Seyqaez encounter saeioqdfp90/26/2024 3:30 PM EDT Procedure Visit [facility] [address] [place] [address] Raymon Pepper DPM [address] [address] [facility] PODStart: 53-37-9843Mjxwpzyytz A1c measurement Diabetes: Hemoglobin K6NANWF HealthcareStart: 38-94-7942Huqqaxkstqa of substance [facility] Centertart: 65-21-6566Gejqmowv identified in Urine by CultureFisher-Titus Medical Centertart: 04-09-2023 End: 73-27-1564Xldkyjg encounter aabepjlga30/14/2024 5:40 PM EST Office Visit [facility] [address] [place] [address] Alize Arrington, [employer] [address] [place] [address] [facility]S [facility] FMStart: 02-99-9177Ezebvaxbrca of substanceFisher-Titus Medical Centertart: 20-94-7734ZozijaskuFisher-Titus Medical Centertart: 40-38-5887ScyaihhgmFisher-Titus Medical Centertart: 85-37-6139Myxqo chest X-rayXR chest 2V*[facility] Medical Centertart: 37-62-1213NE Chest 2 Views [facility] Centertart: 98-30-1965Nktmccns to rehabilitation physicianFisher-Titus Medical Centertart: 03-94-1300Kyrwidxh to neurologistFisher-Titus Medical Centertart: 66-82-2163Lcgsrdzpeklu [facility] Centertart: 43-05-5913Rabwjztp admissionFisher-Titus Medical Centertart: 06-57-8257Mzaqd chest X-rayXR chest 2V*[facility] Centertart: 43-10-4209FR Chest 2 ViewsFisher-Titus Medical Centertart: 27-44-5930Fwgtwpew identified in Blood by CultureBlood CultureFisher-Titus Medical Centertart: 25-11-4904Iikywlrjdgoh Vaccine: Pediatrics (0 to 5 Years) and At-Risk Patients (6 to 64 Years) (2 of 2 - PCV) Pneumococcal Vaccine: Pediatrics (0 to 5 Years) and At-Risk Patients (6 to 64 Years) (2 of 2 - PCV)[facility] HealthcareStart: 90-34-5687Qakbvaudk for malignant neoplasm of cervixHPV/CotestNOMS HealthcareStart: 71-20-5380NGJ Vaccines (1 - 3- dose SCDM series)HPV Vaccines (1 - 3-dose SCDM series)[facility] HealthcareStart: 41-38-9094Wlphfifqk B Vaccines (3 of 3 - 19+ 3-dose series)Hepatitis B Vaccines (3 of 3 - 19+ 3-dose series)[facility] HealthcareStart: 63-56-5042Howfwvpgw for malignant neoplasm of cervixPap SmearNONM HealthcareStart: 94-87-7738Xyrghbg of varicella vaccinationVaricella Vaccines (1 of 2 - 13+ 2-dose series)[facility] CenterCalcitriol [Mass/volume] in Serum or PlasmaFlower HospitalGlucose measurement estimated from glycated hemoglobinFlower HospitalHemoglobin A1c/Hemoglobin.total in BloodPOCT glycosylated hemoglobin (Hb A1C) docked device Point of Care Testing Routine Type 2 diabetes mellitus without complication, 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 Ordered: 06/30/2024NONM Healthcare Work Phone: Comment on above:Ordered: 06/30/2024Patient Education [facility] Work Phone: [facility] referralU[facility] Health Ctr Work Phone: [facility] Immunizations Immunization DateImmunizationNotesCare WftphrjuMstexmxr95-81-1668Kyajnzcgl, injectable, Madin Isadroa Canine Kidney, preservative free, quadrivalentNicholas Brown DPM Work Phone: [facility] CenterPbqzidxjxi17-82-6545jjsohrbpw virus vaccine, unspecified formulationRaymon Pepper DPM Work Phone: [facility] CenterNnamqwyxlq53-39-3619MTXDG-16 mRNA Bivalent Booster (Moderna)MD Delgado Valdez Work Phone: [facility]11-05-2020influenza virus vaccine, unspecified formulationLeanne Venancio DO Work Phone: [facility] CenterOqtglkkagw95-93-1254umswgetsc, injectable, madin isadora canine kidney, preservative freeRaymon Pepper DPM Work Phone: [facility] CenterQlqewtynrs98-51-8209pdvfhwpldteh polysaccharide vaccine, 23 valentRaymon Pepper DPM Work Phone: [facility] CenterLkkgyxndhh23-37-5273Quvtjgq QuadMD Delgado Valdez Work Phone: [facility]11-06-2019influenza virus vaccine, unspecified formulationLehavasu regional medical centere [facility] DO Work Phone: [facility] CenterQydtvdxaez74-79-8269muvqejgnk, injectable, quadrivalent, preservative freeMD Delgado Valdez Work Phone: [facility]11-05-2019influenza, high dose seasonal, preservative-freeRaymon Pepper DPM Work Phone: [facility] CenterUwtyyehjkd15-56-2429crllpsj toxoid, reduced diphtheria toxoid, and acellular pertussis vaccine, adsorbedRaymon Pepper DPM Work Phone: [facility] CenterDvwasuqzsm19-51-4204zbrioptzv virus vaccine, unspecified formulationLeanne Venancio DO Work Phone: [facility] CenterWrefbjaaog84-48-8501diqtvbcbr, injectable, quadrivalent, preservative freeRaymon Pepper DPM Work Phone: [facility] CenterUbtarddusc19-30-4421xhejiyooh, high dose seasonal, preservative-freeRaymon Pepper DPM Work Phone: [facility] CenterEdehcxncfn55-98-9521uyqwmasoe B vaccine, adult dosageNicholas Shreyas DPM Work Phone: [facility] CenterWsbdcdggbn23-37-1707mytkqxuvh B vaccine, adult dosageNicholas Shreyas DPM Work Phone: [facility] CenterXfbglmuwrd19-23-9309htpujkt, mumps and rubella virus vaccineNicholas Brown DPM Work Phone: [phone] [place], [place] [address]Tyyyowebjr16-06-9437oknjrwqxpw, tetanus toxoids and pertussis vaccineNicholas Brown DPM Work Phone: [facility] CenterZlzdscqjwi59-95-4866tuguumimo poliovirus vaccine, live, oralNicholas Shreyas DPM Work Phone: [facility] CenterGeoabdoqwa28-48-6616tzdxcwecdjd influenzae type b vaccine, conjugate unspecified formulationNicdoyleas Shreyas DPM Work Phone: [facility] CenterBjnprhtkxc84-99-0512vjkqvqhzlsq influenzae type b vaccine, HbOC conjugateLeanne [facility] DO Work Phone: [facility] CenterYyazltqdvg45-71-0692evcjyjbxnk, tetanus toxoids and pertussis vaccineNicholas Brown DPM Work Phone: [facility] CenterCkmaubhhah97-86-1642gykezqzgf poliovirus vaccine, live, oralNicholas Shreyas DPM Work Phone: [facility] CenterEbiqgnrgog66-07-5026aequmfpfzl, tetanus toxoids and pertussis vaccineNicholas Brown DPM Work Phone: [phone] [place], [place] [address]Antlhfubpw74-06-0566qsqsink, mumps and rubella virus vaccineNicholas Brown DPM Work Phone: [facility] CenterAnheuhvltz10-59-5081nfzgkkfwot, tetanus toxoids and pertussis vaccineNicholas Brown DPM Work Phone: [facility] CenterQcxlzxtlya41-18-4889wdwihkx, mumps and rubella virus vaccineNicholas Brown DPM Work Phone: [facility] CenterHxsspwxzsi45-24-0857sktiumjocs, tetanus toxoids and pertussis vaccineNicholas Brown DP Work Phone: [facility] CenterGcupgqysam64-53-8081hepbhdfxw poliovirus vaccine, live, oralRaymon Pepper [facility] Work Phone: [facility] Payers DatePayer CategoryPayerPoly [id number]-ghl [id number] [id number] 2006Medicare [id number] 2.0.1.741785.3.57[id number] 2.0.1.277008.3.57[id number] 2..1.814127.3.57[id number] 2.0.1.567283.3.579.[id number] 2..1.217581.3.57[id number] 2.840.1.612083.3.57[id number] 2.0.1.113041.3.57[id number] 2.840.1.357587.3.57[id number] 2.0.1.129779.3.57[id number] 2.16.840.1.622963.3.579.2.028565-29-7091Igyzisz74155426 2.0.1.431051.3.579.[id number] 2.840.1.876928.3.579.2.2[id number] 2.0.1.030885.3.57[id number] 2..1.854593.3.579.2.659366-79-1438Whvhpbw0559622 2..1.288345.3.579.2.[id number] 2..1.826904.3.579.2.339181-26-1600Rnzkmyk4973325 2..1.416541.3.579.2.882409-00-2256Ggxiabo8405126 2..1.316024.3.579.2.217281-38-4368Tgjrfqo9351139 2..1.183836.3.579.2.438939-28-3358Vmmwlft3350387 2..1.754249.3.579.2.484315-69-0715Uksqahp9907351 2.0.1.124027.3.579.2.233042-64-4726Tyogqml7434775 2..1.506353.3.579.2.383161-88-0026Nbztwdk6911128 2.840.1.768328.3.579.2.139533-42-6427Fequtis0555020 2.840.1.614006.3.579.2.1259 [id number] 1960Medicare [id number] 2.16.840.1.4[id number] 2.16.840.1.4[id number] 2.16.840.1.014974.3.579.2.531 [id number] 2.16.840.1.712322.3.579.2.016Ufyqynh2016 2.16.840.1.3[id number] 2.16.840.1.610990.3.579.2.531 Untnvgk80856299 2.16.840.1.617093.3.579.2.711Tusrayj90765258 2.16.840.1.045396.3.579.2.429Isshcxf75699753 2.16.840.1.513287.3.579.2.531 [id number] 2.16.840.1.744710.3.579.2.531 Social History DateTypeDetailFacilityStart: 06-22-2022 End: 84-14-9789Uvwqfrg smoking status NHISNever smoked tobacco (finding) [facility] CenterStart: 20-79-1507Mpb Assigned At [facility] Hospitaltart: 07-25-2022 End: 00-89-4542Pxt Assigned At [facility] Back[employer] Other Start: 81-86-0515Hxtmgkr use and exposureSmokeless tobacco non-userNOMS HealthcareStart: 03-18-2023 End: 96-94-7571Tzbncjg intakeLifetime non-drinker (finding)[facility] HealthcareStart: 07-25-2022 End: 12-80-1420Ueuegsp of Social functionNOMS HealthcareHow often to you have a drink containing alcohol?NeverNONM HealthcareStart: 61-92-9306Ovf many standard drinks containing alcohol do you have on a typical day?Patient does not drink [facility] HealthcareStart: 34-26-9105Fwn Assigned At BirthNot on fileNONM Healthcare TobaccoSelect Medical Specialty Hospital - [facility], IncComment on above:deniesTobacco smoking statusNo Smoking Status EnteredMercy Health St. Elizabeth [facility]stown Hospitaltart: 10-07-2023 End: 86-51-3475Doedexwkb beverage intakeCurrent drinker of alcohol (finding)[facility] HealthcareHow many standard drinks containing alcohol do you have on a typical day?1 or 2NOMS HealthcareHow often do you have 6 or more drinks on 1 occasion? MonthlyNONM HealthcareStart: 01-15-2024 End: 98-67-9773Cdbgrzj smoking status NHISUnknown if ever smokedFisher-Titus Medical Centertart: 01-15-2024 End: 11-11-5048FreAppmfn (finding)[facility] Medical Centerexual OrientationStraselect [facility] or [facility] Work Phone: Start: 57-30-1243Orlnnj identityFeWestchester Medical CenterNEGATED: Highlighted rowFlower Hospital Medical Equipment Procedure CodeEquipment CodeEquipment Original TextEquipment IdentifierDates [id number]: 03-24-2023 End: 74-01-8853Haa one Lancet [id number]: each by Other route [id number]: 08-25-2023 End: Lancet by In Vitro route Daily Use one Lancet daily, E11.9 [id number]: 05-01-2023 Goals DatePatient GoalDesired Activity/State Functional Status Qzuz[id number] Health Questionnaire 2 item (PHQ- 2) [Reported][facility] [id number] Health Questionnaire 2 item (PHQ- 2) [Reported][facility] [id number] Health Questionnaire 2 item (PHQ- 2) [Reported][facility] CenterTbipgcpjzz08-49-1476Rzxaidfreb statusPatient at [facility] Work Phone: [phone] StatusN/[facility]05-15-2023Functional statusPatient is Progressing [facility] Work Phone: [phone] statusPatient Not at [facility] Work Phone: Mental Status Ezpa[id number] functionCognitive Status Patient at [facility] Work Phone: [phone] functionCognitive Status Patient at [facility] Work Phone: [phone]ye functionCognitive Status Patient at [facility] Work Phone: Clinical Notes 06-23-2022 to 12-29-2024 Note Date & [id number] History of Present illness Narrative* Alize Arrington, MARTHA - 12/29/2024 10:00 AM EST Family Medicine Note Subjective: Chief Complaint: CIM HPI: Kelsey Graves presents to the office today for chronic illness management visit. The patient is up to date on lab work and preventative wellness screenings. She is accompanied to today's visit with a elderly sitter who reports a notable difference in the patients hearing. She feels that the patients may need to have her hearing aids adjusted and plans to contact the patients hearing aid provider tohave this assessed. She denies further complaints or concerns at this time. Current Medications[1] Medical History: Medical History[2] Allergies: Allergies[3] Social History: Tobacco Use: Tobacco Use: Low Risk (12/29/2024) Patient History Smoking Tobacco Use: Never Smokeless Tobacco Use: Never Passive Exposure: Not on file Objective: Vitals: 12/29/24 0953 BP: 132/80 Pulse: 76 Resp: 16 Temp: 97.4 F TempSrc: Temporal SpO2: 92% Weight: 170 lb Height: 4' 8 Physical Exam Vitals and nursing note reviewed. Constitutional: General: She is not in acute distress. Appearance: Normal appearance. She is not ill-appearing. HENT: Head: Normocephalic and atraumatic. Right Ear: External ear normal. Left Ear: External ear normal. Nose: Nose normal. Mouth/Throat: Mouth: Mucous membranes are moist. Eyes: Extraocular Movements: Extraocular movements intact. Pupils: Pupils are equal, round, and reactive to light. Cardiovascular: Rate and Rhythm: Normal rate. Pulses: Normal pulses. Heart sounds: No murmur heard. Pulmonary: Effort: Pulmonary effort is normal. Breath sounds: No wheezing, rhonchi or rales. Abdominal: General: Bowel sounds are normal. There is no distension. Tenderness: There is no abdominal tenderness. Musculoskeletal: General: Normal range of motion. Cervical back: Normal range of motion. Skin: General: Skin is warm and dry. Neurological: General: No focal deficit present. Mental Status: She is alert and oriented to person, place, and time. Psychiatric: Mood and Affect: Mood normal. Behavior: Behavior normal. Judgment: Judgment normal. Assessment: Assess/Plan Problem List Items Addressed This Visit COPD (chronic obstructive pulmonary disease) (HCC) - Primary Generalized anxiety disorder Down syndrome (HHS-HCC) Other Visit Diagnoses IFG (impaired fasting glucose) Relevant Orders POCT glycosylated hemoglobin (Hb A1C) docked device (Completed) A1C readings reviewed with patient today in office. Results 5.8. Encouraged patient to continue working on lifestyle modifications with diet and exercise. Care plan was discussed with the patient today and reviewed changes to medications as well as A1c goals. Patient is to call with any questions or concerns. Patient voices understanding as well as risk for diabetes related complications if good glucose control is not obtained Follow-up: Follow up with Alize Arrington in 6 months (on 06/27/2025). [1] Current Outpatient Medications: acetaminophen (Tylenol) 325 MG [...] same time, Disp: 90 tablet, Rfl: 3 [2] Past Medical History: Diagnosis Date Acute diastolic heart failure (HCC) 07/22/2024 Allergies BMI 33.0-33.9,adult Breakthrough seizure (HCC) 07/22/2024 Chronic obstructive pulmonary disease (HCC) 07/22/2024 Chronic respiratory failure with hypoxia and hypercapnia ([facility]) 07/22/2024 Controlled type 2 diabetes mellitus without complication ([facility]) Developmental delay Diabetes mellitus with hypoglycemia ([facility]) 07/22/2024 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 12/08/2008 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 DM type 2 (diabetes mellitus, type 2) ([facility]) Down syndrome ([facility]) 11/08/2008 Down syndrome ([facility]) 04/2016 Pseudoseizure Hospitalization Dysuria 07/22/2024 Factitious illness 10/23/2016 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 Gross hematuria 07/22/2024 Heart disease History of heart valve replacement HTN (hypertension) Hypersomnia 12/08/2008 Hypertension 07/22/2024 Hypothyroidism Microhematuria 07/22/2024 Obesity Obesity (BMI 30.0-34.9) OM (onychomycosis) 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 [facility] [id number] Miscellaneous Notes* Telephone Encounter - Latoya Louie MA - 12/09/2024 12:03 PM EDT LM for Cassandra to call back so I can inform her on Dr Craft's instructions after reviewing patient'spulse ox study. * Telephone Encounter - Patsy Craft DO - 12/08/2024 2:25 PM EDT Overnight pulse ox study reviewed. She does need to use oxygen bled into machine at night. She did have desaturations without it. Does not need O2 during the day (we already discussed this in the office). Can you please let caregiver know about O2 at night? Thanks documented in this encounterMissouri [facility] Medical CenterAnfhmnglzj27-08-3066 Telephone encounter Note* Telephone Encounter - Patsy Craft DO - 12/08/2024 2:25 PM EDT Overnight pulse ox study reviewed. She does need to use oxygen bled into machine at night. She did have desaturations without it. Does not need O2 during the day (we already discussed this in the office). Can you please let caregiver know about O2 at night? Thanks [facility] Work Phone: [phone] History of Present illness Narrative* Alize Arrington, [employer] - 11/10/2024 1:00 PM EDT Family Medicine Note Subjective: Chief Complaint: Special [email or web address] form HPI: Kelsey Graves presents to the office today to have form completed for [employer]. The patient plans to participate in [employer]. She currently denies any further questions or concerns. Current Outpatient Medications: acetaminophen (Tylenol) 325 MG tablet, Take 325 mg by mouth every 6 (six) hours if needed for mild pain, Disp: , Rfl: albuterol HFA 90 mcg/act inhaler, Inhale 2 puffs every 4 (four) hours if needed for wheezing or shortness of breath, Disp: , Rfl: clotrimazole-betamethasone (Lotrisone) cream, Apply 1 application topically in the morning and 1 application before bedtime., Disp: 45 g, Rfl: 1 divalproex (Depakote) 250 MG EC tablet, Take [...] same time, Disp: 90 tablet, Rfl: 3 polycarbophil (Fiber-Lax) 625 MG tablet, Take 1 tablet (625 mg) by mouth Daily (Patient not taking:Reported on 11/10/2024), Disp: 90 tablet, Rfl: 1 Medical History: Past Medical History: Diagnosis Date Acute diastolic heart failure (HCC) 07/22/2024 Allergies BMI 33.0-33.9,adult Breakthrough seizure (HCC) 07/22/2024 Chronic obstructive pulmonary disease (HCC) 07/22/2024 Chronic respiratory failure with hypoxia and hypercapnia ([facility]) 07/22/2024 Controlled type 2 diabetes mellitus without complication ([facility]) Developmental delay Diabetes mellitus with hypoglycemia ([facility]) 07/22/2024 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 12/08/2008 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 DM type 2 (diabetes mellitus, type 2) ([facility]) Down syndrome ([facility]) 11/08/2008 Down syndrome ([facility]) 04/2016 Pseudoseizure Hospitalization Dysuria 07/22/2024 Factitious illness 10/23/2016 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 Gross hematuria 07/22/2024 Heart disease History of heart valve replacement HTN (hypertension) Hypersomnia 12/08/2008 Hypertension 07/22/2024 Hypothyroidism Microhematuria 07/22/2024 Obesity Obesity (BMI 30.0-34.9) OM (onychomycosis) 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 Scoliosis Seizures ([facility]) Sensorineural hearing loss 07/22/2024 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 Snoring Tinea pedis Toe pain, bilateral Transient alteration of awareness 07/02/2016 Allergies: Allergies Allergen Reactions Diazepam Unknown Social History: Tobacco Use: Tobacco Use: Low Risk (11/10/2024) Patient History Smoking Tobacco Use: Never Smokeless Tobacco Use: Never Passive Exposure: Not on file Objective: Vitals: 11/10/24 1257 11/10/24 1301 BP: 116/70 120/70 BP Location: Left arm Right arm Patient Position: Sitting Pulse: 87 Resp: 16 Temp: 97.2 F TempSrc: Temporal SpO2: 98% Weight: 167 lb Height: 4' 8 Physical Exam Vitals and nursing note reviewed. Constitutional: General: She is not in acute distress. Appearance: Normal appearance. She is not ill-appearing. HENT: Head: Normocephalic and atraumatic. Right Ear: External ear normal. Left Ear: External ear normal. Nose: Nose normal. Mouth/Throat: Mouth: Mucous membranes are moist. Eyes: Extraocular Movements: Extraocular movements intact. Pupils: Pupils are equal, round, and reactive to light. Neck: Vascular: No carotid bruit. Cardiovascular: Rate and Rhythm: Normal rate. Pulses: Normal pulses. Heart sounds: No murmur heard. Pulmonary: Effort: Pulmonary effort is normal. Breath sounds: No wheezing, rhonchi or rales. Abdominal: General: Bowel sounds are normal. There is no distension. Tenderness: There is no abdominal tenderness. Musculoskeletal: General: Normal range of motion. Cervical back: Normal range of motion. Skin: General: Skin is warm and dry. Neurological: General: No focal deficit present. Mental Status: She is alert and oriented to person, place, and time. Psychiatric: Mood and Affect: Mood normal. Behavior: Behavior normal. Judgment: Judgment normal. Assessment: Assess/Plan Problem List Items Addressed This Visit None Visit Diagnoses Encounter for completion of form with patient - Primary Patient presents to the office to have form completed for [employer]. Form completed and scanned into chart. Follow-up: Follow up in about 2 weeks (around 11/24/2024), or if symptoms worsen or fail to improve. documented in this encounterMissouri Baptist Medical [id number] History of Present illness Narrative* ALEXSANDRA Sher - 11/03/2024 1:00 PM EDT HAP: Pt was seen today for hearing aid maintenance and an ear cleaning. Caregiver reported problemswith beeping from the one aid. She also wanted us to review how to clean. It appears the beeping noise is feedback, as occlusive cerumen was present in the earmold. Replicated FB noise and pt stated that was the beeping noise she was hearing. The aids were cleaned, checked, and the tubing was changed. Listening check revealed the aids were in good working order. Otoscopy revealed minimal cerumen, bilaterally, which was removed without incident. Discussed proper maintenance with patient and caregiver. Pt to return as needed documented in this encounterMissouri Baptist Medical [id number] History of Present illness Narrative* Patsy Craft, - 10/14/2024 3:00 PM EDT Images from the original note were not included. Kelsey Graves presents today for follow up on hypoxia and sleep apnea. She was last seen a few months ago. She is here today with a caregiver. Since her last office visit she has been able, oxygenaltogether throughout the day. She does continue to use this on a nightly basis with her BiPAP machine. She denies any current complaints of shortness of breath at rest or with exertion. She denies any chest pain, palpitations, fevers, chills, sweats, or recent unintentional weight changes. She denies any other complaints at today's office visit. Her caregiver good denies any complaints at this time as well. They are interested in getting rid of the oxygen altogether if able. Allergies: Allergies Allergen Reactions Diazepam Unknown Medications: Current Outpatient Medications: acetaminophen (Tylenol) 325 MG tablet, Take 325 mg by mouth every 6 (six) hours if needed for mild pain, Disp: , Rfl: amoxicillin (Amoxil) 500 MG tablet, Take 1 tablet (500 mg) by mouth in the morning and 1 tablet (500 mg) before bedtime. Do all this for 10 days., Disp: 20 tablet, Rfl: 0 clotrimazole-betamethasone (Lotrisone) cream, Apply 1 application topically in the morning and 1 application before bedtime., Disp: 45 g, Rfl: 1 divalproex (Depakote) 250 MG EC tablet, Take 1 tablet (250 mg) by mouth in the morning and 1 tablet(250 mg) before bedtime. Do not crush, chew, or split., Disp: 60 tablet, Rfl: 2 fluconazole (Diflucan) 150 MG tablet, Take 1 tablet (150 mg) by mouth See administration instructions for 1 day Take one tab now. Repeat in 7 days if symptoms persist., Disp: 2 tablet, Rfl: 0 levothyroxine (Synthroid, Levoxyl) 75 MCG tablet, Take [...] same time, Disp: 90 tablet, Rfl: 3 albuterol HFA 90 mcg/act inhaler, Inhale 2 puffs every 4 (four) hours if needed for wheezing or shortness of breath, Disp: , Rfl: polycarbophil (Fiber-Lax) 625 MG tablet, Take 1 tablet (625 mg) by mouth Daily (Patient not taking:Reported on 10/14/2024), Disp: 90 tablet, Rfl: 1 Past Medical History: Past Medical History: Diagnosis Date Acute diastolic heart failure (HCC) 07/22/2024 Allergies BMI 33.0-33.9,adult Breakthrough seizure (HCC) 07/22/2024 Chronic obstructive pulmonary disease (HCC) 07/22/2024 Chronic respiratory failure with hypoxia and hypercapnia ([facility]) 07/22/2024 Controlled type 2 diabetes mellitus without complication ([facility]) Developmental delay Diabetes mellitus with hypoglycemia ([facility]) 07/22/2024 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 12/08/2008 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 DM type 2 (diabetes mellitus, type 2) ([facility]) Down syndrome ([facility]) 11/08/2008 Down syndrome ([facility]) 04/2016 Pseudoseizure Hospitalization Dysuria 07/22/2024 Factitious illness 10/23/2016 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[facility]) 11/08/2008 Gross hematuria 07/22/2024 Heart disease History of heart valve replacement HTN (hypertension) Hypersomnia 12/08/2008 Hypertension 07/22/2024 Hypothyroidism Microhematuria 07/22/2024 Obesity Obesity (BMI 30.0-34.9) OM (onychomycosis) 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 Scoliosis Seizures ([facility]) Sensorineural hearing loss 07/22/2024 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 Snoring Tinea pedis Toe pain, bilateral Transient alteration of awareness 07/02/2016 Social History: Social History Tobacco Use Smoking status: Never Smokeless tobacco: Never Substance Use Topics Alcohol use: Never Vitals: BP 138/78 Pulse 106 Ht 4' 8 Wt 163 lb SpO2 97% BMI 36.54 kg/m Exam: Heart: regular rate Lungs: clear to auscultation bilaterally, no wheezes/rales/rhonchi, no resp distress Extremities: no edema noted, no visible rashes Neuro: alert, oriented x3 Imaging Reviewed: None Assessment/Plan: Diagnoses and all orders for this visit: Obstructive sleep apnea (adult) (pediatric) JANET -- she does continue to use oxygen bled into her BiPAP machine at night. This time we discusseddoing an overnight pulse oximetry on room air while using her BiPAP to see whether she has any desaturations or not. This will be ordered after today's office visit. She does currently remain compliant with use of her BiPAP machine on a nightly basis. There is no report or apneas or snoring while using the machine. She will continue regular use of her BiPAP. She will follow here in a few months time to reassess her BiPAP use as well as review her overnight oximetry. Follow up in about 3 months (around 01/14/2025) for JANET-. Patsy Craft DO documented in this [facility]08-21-2025 Telephone encounter Note* Telephone Encounter - Raymon Pepper DPM - 10/14/2024 8:20 AM EDT done [place] [id number] Miscellaneous Notes* Telephone Encounter - Raymon Pepper DPM - 10/14/2024 8:20 AM EDT done * Telephone Encounter - Marcos Norwood - 10/13/2024 1:58 PM EDT Pt transitional care liaison called asking for a refill on the clotrimazole-betamethasone cream documented in this [facility]08-20-2025 Telephone encounter Note* Telephone Encounter - Marcos Norwood - 10/13/2024 1:58 PM EDT Pt transitional care liaison called asking for a refill on the clotrimazole-betamethasone cream [place] [id number] History of Present illness Narrative* Alize Arrington NP - 10/13/2024 10:00 AM EDT Family Medicine Note Subjective: Chief Complaint: ER follow-up HPI: Kelsey Graves presents to the office today on emergency room follow-up. The patient was seen at [facility] emergency room twice last week due to breakthrough seizures. After her second trip to the emergency department she was evaluated by neurology who made adjustments to her anti-seizure medications. The patient does have complaints of bilateral ear discomfort in office today and is requestingher ears be checked. She also has complaints of burning with urination. She denies further complaints or concerns at this time. Current Outpatient Medications: acetaminophen (Tylenol) 325 MG [...] or split., Disp: 60 tablet, Rfl: 2 nitrofurantoin, macrocrystal-monohydrate, (Macrobid) 100 MG capsule, Take 1 capsule (100 mg) by mouth at bedtime, Disp: 90 capsule, Rfl: 3 oxygen (O2) gas, Inhale 4 L/min continuously, Disp: , Rfl: polycarbophil (Fiber-Lax) 625 MG tablet, Take 1 tablet (625 mg) by mouth Daily, Disp: 90 tablet, Rfl: 1 polycarbophil (FiberCon) 625 MG tablet, Take 1 tablet (625 mg) by mouth Daily, Disp: 30 tablet, Rfl: 11 sertraline (Zoloft) 100 MG tablet, Take 1 tablet (100 mg) by mouth Daily, Disp: 90 tablet, Rfl: 0 sertraline (Zoloft) 50 MG tablet, Take 50 mg by mouth in the morning., Disp: , Rfl: amoxicillin (Amoxil) 500 MG tablet, Take 1 tablet (500 mg) by mouth in the morning and 1 tablet (500 mg) before bedtime. Do all this for 10 days., Disp: 20 tablet, Rfl: 0 fluconazole (Diflucan) 150 MG tablet, Take 1 tablet (150 mg) by mouth See administration instructions for 1 day Take one tab now. Repeat in 7 days if symptoms persist., Disp: 2 tablet, Rfl: 0 levothyroxine (Synthroid, Levoxyl) 75 MCG tablet, Take 1 tablet (75 mcg) by mouth in the morning. Take before meals., Disp: 90 tablet, Rfl: 1 nystatin-triamcinolone (Mycolog II) cream, Apply topically 2 (two) times a day as needed (rash), Disp: 30 g, Rfl: 1 simvastatin (Zocor) 20 MG tablet, Take 1 tablet (20 mg) by mouth 1 (one) time each day at the same time, Disp: 90 tablet, Rfl: 3 Medical History: Past Medical History: Diagnosis Date Acute diastolic heart failure (HCC) 07/22/2024 Allergies BMI 33.0-33.9,adult Breakthrough seizure (HCC) 07/22/2024 Chronic obstructive pulmonary disease (HCC) 07/22/2024 Chronic respiratory failure with hypoxia and hypercapnia ([facility]) 07/22/2024 Controlled type 2 diabetes mellitus without complication ([facility]) Developmental delay Diabetes mellitus with hypoglycemia ([facility]) 07/22/2024 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 12/08/2008 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 DM type 2 (diabetes mellitus, type 2) ([facility]) Down syndrome ([facility]) 11/08/2008 Down syndrome ([facility]) 04/2016 Pseudoseizure Hospitalization Dysuria 07/22/2024 Factitious illness 10/23/2016 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[facility]) 11/08/2008 Gross hematuria 07/22/2024 Heart disease History of heart valve replacement HTN (hypertension) Hypersomnia 12/08/2008 Hypertension 07/22/2024 Hypothyroidism Microhematuria 07/22/2024 Obesity Obesity (BMI 30.0-34.9) OM (onychomycosis) 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 Scoliosis Seizures ([facility]) Sensorineural hearing loss 07/22/2024 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 Snoring Tinea pedis Toe pain, bilateral Transient alteration of awareness 07/02/2016 Allergies: Allergies Allergen Reactions Diazepam Unknown Social History: Tobacco Use: Tobacco Use: Low Risk (10/13/2024) Patient History Smoking Tobacco Use: Never Smokeless Tobacco Use: Never Passive Exposure: Not on file Objective: Vitals: 10/13/24 0952 BP: 120/60 Pulse: 89 Resp: 16 Temp: 97.9 F TempSrc: Temporal SpO2: 93% Weight: 163 lb Height: 4' 8 Physical Exam Vitals and nursing note reviewed. Constitutional: General: She is not in acute distress. Appearance: Normal appearance. She is not ill-appearing. HENT: Head: Normocephalic and atraumatic. Right Ear: Ear canal and external ear normal. A middle ear effusion is present. Tympanic membrane is erythematous. Left Ear: Ear canal and external ear normal. A middle ear effusion is present. Nose: Nose normal. Mouth/Throat: Mouth: Mucous membranes are moist. Eyes: Extraocular Movements: Extraocular movements intact. Pupils: Pupils are equal, round, and reactive to light. Cardiovascular: Rate and Rhythm: Normal rate. Pulses: Normal pulses. Heart sounds: No murmur heard. Pulmonary: Effort: Pulmonary effort is normal. Breath sounds: No wheezing, rhonchi or rales. Abdominal: General: Bowel sounds are normal. There is no distension. Tenderness: There is no abdominal tenderness. Musculoskeletal: General: Normal range of motion. Cervical back: Normal range of motion. Skin: General: Skin is warm and dry. Neurological: General: No focal deficit present. Mental Status: She is alert and oriented to person, place, and time. Psychiatric: Mood and Affect: Mood normal. Behavior: Behavior normal. Judgment: Judgment normal. Assessment: Assess/Plan Problem List Items Addressed This Visit Hypothyroidism Relevant Medications levothyroxine (Synthroid, Levoxyl) 75 MCG tablet The symptoms of hypothyroidism include fatigue, weakness, weight gain, muscle aches, constipation, depressed mood, dry skin, intolerance of cold temperatures, and heavy menstrual periods. Since absorption of this medication is increased on an empty stomach, take your thyroid medicine on an empty stomach 60 minutes before breakfast. Do not stop taking the medication even if you feel better. Do nottake your thyroid medication at the same time as fiber supplements, calcium, iron, multivitamins, or aluminum hydroxide antacids or any medications that bind bile acids. Take your thyroid medication and these medications at least 4 hours apart. Continue with diet and exercise. Repeat labs in specified time frame as discussed during your appointment. Patient understands treatment plan. Other Visit Diagnoses Breakthrough seizure She was seen in the emergency department due to breakthrough seizure. She has since been evaluated by neurology who did adjust some of her medications. She will continue to follow-up with neurology. Candidiasis of breast - Primary Relevant Medications nystatin-triamcinolone (Mycolog II) cream Hyperlipidemia, unspecified hyperlipidemia type Relevant Medications simvastatin (Zocor) 20 MG tablet Medication as directed. Discussed importance of maintaining LDL at specified goal. Discussed risks associated with hyperlipidemia including stroke and heart attack. Medications as directed. Discusseddietary modifications, including decreasing red meat consumption, decreasing alcohol consumption, avoiding fried fatty foods and cakes, cookies, and sweets. Encouraged to increase fiber in diet and eat a diet rich in omega-3. Encouraged to exercise at least 150 minutes weekly. Barriers to the plan of care have been addressed. Obtain labs as directed and call our office if you have not received the lab results within one week. Follow up as directed. Non-recurrent acute suppurative otitis media of both ears without spontaneous rupture of tympanic membranes Relevant Medications amoxicillin (Amoxil) 500 MG tablet New medications as directed. Report side effects of medication to PCP immediately. Monitor fluid intake, urine output. Call office if symptoms do not improve within the next 72 hours. Maintain clean hands as much as possible. Encourage fluids. Return to the office in 2 weeks for TM recheck. To ER for worsening of symptoms. Recurrent UTI Relevant Orders POCT urinalysis dipstick manually resulted (Completed) Urine culture (clean catch) Her urine did have leukocytes present. We will send for culture and send antibiotics if urine culture returns positive. Vaginal yeast infection Relevant Medications fluconazole (Diflucan) 150 MG tablet Hospital discharge follow-up Reviewed hospital records including labs, imaging, procedure and consult notes. Overall patient is feeling better and is encouraged to keep follow-up appointments with specialists as scheduled. Patient voices no further concerns at this time. Follow-up: Follow up for Next scheduled follow-up. documented in this encounterMissouri Baptist Medical [id number] Evaluation note* Diagnosis Onset Date Resolution Status Admit Date Encounter for medication monitoring acuteAugust 2024 10:37amSeizureschronicAugust 2024 10:37am [facility] Work Phone: 1(843) 514-630908-12-2025 [facility] [place] [address] [place], [place] [id number] CT Scan Report Signed Patient: Kelsey Graves MR#: [id number] : 1980 Acct:[id number] Age/Sex: 43 / F ADM Date: 5 Loc: ER Room: Type: [facility] ER Attending Dr: Copies to: Alexander Barrera MD~ Ordering Provider: Alexander Barrera MD Date of Service: 10/05/24 CT/CT head/brain wo con: nkj Unenhanced head CT TECHNIQUE: Contiguous axial imaging of the head. The CT exam was performed usingone or more the following dose reduction techniques: Automated exposure control,adjustment of the MA and/or Kv according to patient size, or use of the iterative reconstruction technique. COMPARISON: 10/05/2024 HISTORY: Seizure VENTRICLES: Within normal limits ATROPHY: None BRAIN PARENCHYMA: Adequate orellana-white matter differentiation identified. HEMORRHAGE: None HERNIATION: No mass effect or herniation INFARCTION: No recent vascular distribution infarction is seen. EXTRA-AXIAL FLUID COLLECTIONS None MIDBRAIN: Unremarkable ISIAH: Unremarkable MEDULLA: Unremarkable SINUSES: Unremarkable ORBITS: Grossly unremarkable MASTOIDS: Unremarkable BONY STRUCTURES Intact ADDITIONAL FINDINGS: CT/CT head/brain wo con IMPRESSION: No acute findings. Impression dictated by: Pardeep Montoya M.D. 10/05/2024 8:24 PM Dictation Location: [place] [address] Transcribed By: [facility] 10/05/242023 Dictated By: Pardeep Montoya DO 10/05/242021 Signed By: 10/05/242023 [facility]08-12-2025 Radiology Diagnostic study note [facility] [place] [address] CT Scan Report Signed Patient: Kelsey Graves MR#: [id number] : 1980 Acct:[id number] Age/Sex: 43 / F ADM Date: 5 Loc: ER Room: Type: [facility] ER Attending Dr: Copies to: Sherrie Silveira DO~ Ordering Provider: Sherrie Silveira DO Date of Service: 10/05/24 CT/CT head/brain wo con: seizure, head inj CT BRAIN WITHOUT CONTRAST: CLINICAL HISTORY: Seizure today. COMPARISON: CT brain 01/13/2025 TECHNIQUE: Contiguous axial unenhanced images were obtained through the brain. This CT exam was performed using one or more following dose reduction techniques: Automated exposure control, adjustmentof the mA and/or kV accordingto patient size, or use of iterative reconstruction technique. FINDINGS: There is no evidence of midline shift, intra or extra-axial fluid collection, hemorrhage or CT evidence of stroke. Posterior fossa appears unremarkable. Visualized intraorbital contents demonstrate no acute findings. Visualized paranasal sinuses are clear. The surrounding soft tissues are normal. CT/CT head/brain wo con IMPRESSION: NO ACUTE INTRACRANIAL ABNORMALITY. Impression dictated by: Raul Nash Jr., Roland 10/05/2024 9:24 AM Dictation Location: [place] [address] Transcribed By: [facility] 10/05/24923 Dictated By: Raul Nash Jr, DO 10/05/24922 Signed By: 10/05/24923 [facility]08-11-2025 Radiology Diagnostic study note [facility] [place] [address] [place] [address] CT Scan Report Signed Patient: Kelsey Graves MR#: [id number] : 1980 Acct:[id number] Age/Sex: 43 / F ADM Date: 5 Loc: ER Room: Type: [facility] ER Attending Dr: Copies to: Nat Gutierrez MD~ Ordering Provider: Nat Gutierrez MD Date of Service: 10/04/24 CT/CT abdomen pelvis w con: fall, hit head, poss seizure act, neck/back pain ([id number]) CT/CT chest w con: fall, hit head, poss seizure act, neck/back pain CT Chest, Abdomen and Pelvis with contrast TECHNIQUE: Axial imaging with 2-D reconstruction. 90 cc of [id number] CT exam was performed using one or more the following dose reduction techniques: Automated exposure control, adjustment of theMA and/or Kv according to patient size, or use of the iterative reconstruction technique. History: Seizure. Fell. History of Down syndrome. COMPARISON: 05/02/2016 THYROID: No significant thyroid abnormality identified. AIRWAY: Central airway is patent. ESOPHAGUS: Esophagus normal course and caliber. HEART: Heart is not enlarged. PERICARDIAL EFFUSION: None CORONARY ARTERY CALCIFICATION: None MEDIASTINUM: Nonenlarged mediastinal lymph nodes identified. HILAR REGION: No hilar mass or adenopathy is seen. THORACIC AORTA: No thoracic aortic aneurysm or dissection. No atherosclerosis LUNG INTERSTITIUM: No infiltrate or congestion identified. Minor interstitial changes likely related to depth of inspiration. PLEURAL EFFUSION No pleural effusion identified. PNEUMOTHORAX: No pneumothorax seen. LUNG NODULE: No lung nodules identified. CHEST WALL: No chest wall abnormality seen. The bony chest intact. LIVER: No hepatic mass or intrahepatic biliary ductal dilatation is identified. Normal density of the liver parenchyma identified. GALLBLADDER: No gallbladder abnormalities identified. BILE DUCTS: No biliary duct dilatation identified. SPLEEN: Normal PANCREAS: Unremarkable ADRENAL GLANDS: The adrenal glands are unremarkable. KIDNEYS: Unremarkable ABDOMINAL AORTA: The abdominal aorta is normal. RETROPERITONEUM: No significant retroperitoneal abnormalities identified. STOMACH:Nondistended SMALL BOWEL: The small bowel loops are nondistended. APPENDIX: The appendix is normal. COLON: There is no colitis or diverticulitis. URINARY BLADDER: Urinary bladder is unremarkable. REPRODUCTIVE STRUCTURES: Developing 4.4 cm hypodensity left adnexal region favoring ovarian cyst. FREE AIR: None FREE FLUID: None ABDOMINAL WALL: No subcutaneous soft tissue abnormality identified. INGUINAL HERNIA: None BONES:Moderate thoracolumbar scoliosis. No acute displaced fracture CT/CT chest w con IMPRESSION: No acute findings PRELIMINARY RESULTS: None given Impression dictated by: Pardeep Montoya M.D. 10/04/2024 6:56 PM Dictation Location: [place] [address] Transcribed By: [facility] 10/04/241855 Dictated By: Pardeep Montoya DO 10/04/24 184 Signed By: 10/04/241855 [facility]08-11-2025 Radiology Diagnostic study note [facility] [place] [address] [place] [address] CT Scan Report Signed Patient: Kelsey Graves MR#: [id number] : 1980 Acct:[id number] Age/Sex: 43 / F ADM Date: 5 Loc: ER Room: Type: [facility] ER Attending Dr: Copies to: Nat Gutierrez MD~ Ordering Provider: Nat Gutierrez MD Date of Service: 10/04/24 CT/CT cervical spine wo con: fall, hit head, poss seizure act, neck/backpain CT Cervical Spine withoutcontrast TECHNIQUE: Axial imaging with 2-D and 3-D reconstruction. The CT exam was performed using one or more the following dose reduction techniques: Automated exposure control, adjustment of the MA and/or Kv according to patient size, or use of the iterative reconstruction technique. COMPARISON: None HISTORY: Seizure. Fell. Injury right side of mouth. POST SURGERY CHANGES: None BONY ALIGNMENT: Straightening of cervical lordosis BONY SPINAL CANAL: Patent central bony canal FRACTURE: None BONY LESIONS: None SOFT TISSUES: Unremarkable DEGENERATIVE CHANGES: Moderate C6-7 spondylosis LUNG APICES: Unremarkable ADDITIONAL FINDINGS: CT/CT cervical spine wo con IMPRESSION: No acute process Impression dictated by: Pardeep Montoya M.D. 10/04/2024 6:29 PM Dictation Location: [place] [address] Transcribed By: [facility] 10/04/241828 Dictated By: Pardeep Montoya DO 10/04/241825 Signed By: 10/04/241828 [facility]08-11-2025 Radiology Diagnostic study note [facility] [place] [address] [place] [address] CT Scan Report Signed Patient: Kelsey Graves MR#: [id number] : 1980 Acct:[id number] Age/Sex: 43 / F ADM Date: 5 Loc: ER Room: Type: [facility] ER Attending Dr: Copies to: Nat Gutierrez MD~ Ordering Provider: Nat Gutierrez MD Date of Service: 10/04/24 CT/CT head/brain wo con: fall, hit head, poss seizureact, neck/back pain Unenhanced head CT TECHNIQUE: Contiguous axial imaging of the head. The CT exam was performed usingone or more the following dose reduction techniques: Automated exposure control,adjustment of the MA and/or Kv according to patient size, or use of the iterative reconstruction technique. COMPARISON: 01/15/2024 HISTORY: Seizure. Fell. Right facial injury VENTRICLES: Within normal limits ATROPHY: None BRAIN PARENCHYMA: Adequate orellana-white matter differentiation identified. HEMORRHAGE: None HERNIATION: No mass effect or herniation INFARCTION: No recent vascular distribution infarction is seen. EXTRA-AXIAL FLUID COLLECTIONS None MIDBRAIN: Unremarkable ISIAH: Unremarkable MEDULLA: Unremarkable SINUSES: Unremarkable ORBITS: Grossly unremarkable MASTOIDS: Unremarkable BONY STRUCTURES Intact ADDITIONAL FINDINGS: CT/CT head/brain wo con IMPRESSION: No acute findings. Impression dictated by: Pardeep Montoya M.D. 10/04/2024 5:14 PM Dictation Location: [facility] Transcribed By: [facility] 10/04/241713 Dictated By: Pardeep Montoya DO 10/04/241712 Signed By: 10/04/241713 [facility]08-11-2025 Hospital Discharge instructions Additional Instructions Please return to emergency department for any new or worrisome symptoms including any chest pain, shortness of breath, vomiting, fever, not acting like self, numbness, weakness, tingling. Follow-up outpatient with your family physician closely within the next 1 to 2 days. [facility] Work Phone: 1(271) 978-380307-01-2025 History of Present illness Narrative* MARY Finley - 08/24/2024 10:30 AM EDT Fit pt with replacement aids and new ear molds. Changed ear hooks from adult to pediatric size. Pt indicated she was hearing well. Her Caregiver asked about the oracle drm consultant. I explained the oracle drm consultant is not a part of the loss and damage. Pt thinks the oracle drm consultant is at home. They will call if they cannot find the oracle drm consultant. documented in this encounterNOCitizens Memorial HealthcareFrjdjgluyo50-07-1411 Telephone encounter Note* Telephone Encounter - Cristine Lao - 08/19/2024 8:25 AM EDT Patient's caregiver called asking her a refill on the lotrisone cream. Her pharmacy is still [facility] in [place]. [facility] [id number] Miscellaneous Notes* Telephone Encounter - Cristine Lao - 08/19/2024 8:25 AM EDT Patient's caregiver called asking her a refill on the lotrisone cream. Her pharmacy is still [facility] in [place]. documented in this [facility]06-18-2025 History of Present illness Narrative* ALEXSANDRA Sher - 08/11/2024 1:00 PM EDT History: Patient was seen for an updated audiological evaluation and hearing aid check. Her caregiver statedthe patient's hearing aids are lost. Pt's hearing aids are covered for one time L&D until 05-09-2025. She would like us to submit this claim on the patient's behalf. Otoscopic Exam: Revealed partially occlusive cerumen, bilaterally, which was removed prior to testing, without incident. Pure Tone Audiometry Audio indicated a mild to moderate sensorineural hearing loss 500-4000 Hz, bilaterally. Many false positives present during testing and reliability is poor. However, results seem to be relatively consistent with previous results recorded in 2020. Speech Audiometry Right SRT = 60 dB and word discrimination score at 90 dBHL = 80% Left SRT = 55 dB and word discrimination score at 85 dBHL = 84% Artic. Errors present Tympanometry Normal Type A tympanogram recorded in the right ear and a Type C (negative pressure) tympanogram recorded in the left ear Impressions: Discussed results with the patient and her caregiver. She would like to submit the one time L&Dclaim for her hearing aids. This was completed through [employer]'s online portal. Completed new impressions for new earmolds. These will be billed to Medicaid. Impressions were taken without incident. Ordered (R) pink and (L) purple skeleton lucite Ems with small SAVs. Once everything arrives, pt willbe contacted for a brief fitting appt to check the fit of the molds and programming of aids. documented in this [facility]06-13-2025 History of Present illness Narrative* Raymon Pepper DPM - 08/06/2024 3:30 PM EDT Patient: Kelsey Lehman [place] : 1980 PCP: Delgado Valdez MD SUBJECTIVE This is a 43 y.o. female that presents today with a [...] have been using medicated antifungal cream with slight improvement And states diminished itching to feet and toes. Allergies: Allergies Allergen Reactions Diazepam Unknown Past Medical History: Past Medical History: Diagnosis Date Acute diastolic heart failure ([facility]) 07/22/2024 Allergies BMI 33.0-33.9,adult Breakthrough seizure ([facility]) 07/22/2024 Chronic obstructive pulmonary disease ([facility]) 07/22/2024 Chronic respiratory failure with hypoxia and hypercapnia ([facility]) 07/22/2024 Controlled type 2 diabetes mellitus without complication Developmental delay Diabetes mellitus with hypoglycemia ([facility]) 07/22/2024 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 12/08/2008 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/2024 DM type 2 (diabetes mellitus, type 2) ([facility]) Down syndrome 11/08/2008 Down syndrome 04/2016 Pseudoseizure Hospitalization Dysuria 07/22/2024 Factitious illness ([facility]) 10/23/2016 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 Gross hematuria 07/22/2024 Heart disease History of heart valve replacement HTN (hypertension) ([facility]) Hypersomnia 12/08/2008 Hypertension ([facility]) 07/22/2024 Hypothyroidism ([facility]) Microhematuria 07/22/2024 Obesity Obesity (BMI 30.0-34.9) OM (onychomycosis) 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 Do not crush, chew, or split., Disp: 60 tablet, Rfl: 2 levothyroxine (Synthroid, Levoxyl) 75 MCG tablet, Take 1 tablet (75 mcg) by mouth in the morning. Take before meals., Disp: 30 tablet, Rfl: 5 nitrofurantoin, macrocrystal-monohydrate, (Macrobid) 100 MG capsule, Take 1 capsule (100 mg) by mouth at bedtime, Disp: 90 capsule, Rfl: 3 oxygen (O2) gas, Inhale 4 L/min continuously, Disp: , Rfl: polycarbophil (Fiber-Lax) 625 MG tablet, Take 1 tablet (625 mg) by mouth Daily, Disp: 90 tablet, Rfl: 1 sertraline (Zoloft) 100 MG tablet, Take 1 tablet (100 mg) by mouth Daily, Disp: 90 tablet, Rfl: 0 sertraline (Zoloft) 50 MG tablet, Take 50 mg by mouth in the morning., Disp: , Rfl: simvastatin (Zocor) 20 MG tablet, Take 1 tablet (20 mg) by mouth 1 (one) time each day at the same time, Disp: 90 tablet, Rfl: 0 Social History: Social History Socioeconomic History Marital [...] through 10. Positive hair growth b/l feet. Slight diminished Dry and peeling skin with slight maceration to interdigital spaces bilateral feet withpeeling and dry skin noted to interdigital spaces VASC: Positive palpable pedal pulses bilaterally NEURO: Gross sensation intact to bilateral feet ORTHO: Positive pain on palpation to toenails of the left 1,2,3,4,5 toes and right 1,2,3,4,5 toes ASSESSMENT 1. Tinea pedis, unspecified laterality 2. Type 2 diabetes mellitus without complication, unspecified whether penitentiary insulin use 3. Pain due to onychomycosis of toenails of both feet PLAN Discussed proper foot care with patient today. Continue creams to feet daily of antifungals Debride nails in length and thickness digits 1 through 10 Patient education concerning tinea infection. Discussed use of antifungal cream and foot powders aswell as good foot hygiene and prevention measures. Offered RX today . Patient education on condition and treatment of condition. Pt encouraged to continue with hydrating creams to feet with offer for medication and/or prescription refill. Raymon Pepper DPM documented in this encounterMissouri Baptist Medical [id number] History of Present illness Narrative* Patsy Craft DO - 07/22/2024 2:30 PM EDT Images from the original note were not included. Kelsey Graves presents today for Evaluation in regards to sleep apnea and hypoxia. The patient is accompanied by her caregiver given that she does have a history of Down syndrome. The history is obtained from the medical records as well as her caregiver. She was diagnosed with pneumonia in 2022.She was hospitalized that time. At the time of her hospital discharge she was sent out with oxygen.She has been using this regularly since 2022. She was also discharged with BiPAP which she also uses regularly. She does currently use 4 L during the day and 5 L at night. Her caregiver states that she had was recently on hospice but recently came off of hospice. It does sound as if she was on for diagnosis of heart failure. The patient denies any complaints of shortness of breath at rest or withexertion at this point. She does have a prescription for albuterol, but does not use this at all. There are no complaints of chest pain, palpitations, fevers, chills, sweats, or recent unintentional weight changes. Her caregiver states they are curious whether she does need to continue to use the oxygen. She states there are times that she does not have the oxygen in place and does very well. They do have a pulse oximeter at home that they do check her oxygen saturations frequently. Allergies Allergen Reactions Diazepam Unknown Current Outpatient Medications Medication Sig Dispense Refill acetaminophen (Tylenol) 325 MG tablet Take 325 mg by mouth every 6 (six) hours if needed for mild pain clotrimazole-betamethasone (Lotrisone) cream APPLY 1 APPLICATION TOPICALLY TO THE AFFECTED AREA(S) IN THE MORNING AND 1 APPLICATION TOPICALLY BEFORE BEDTIME 45 g 0 divalproex (Depakote) 250 MG EC tablet Take 1 tablet (250 mg) by mouth in the morning and 1 tablet (250 mg) before bedtime. Do not crush, chew, or split. 60 tablet 2 levothyroxine (Synthroid, Levoxyl) 75 MCG tablet Take 1 tablet (75 mcg) by mouth in the morning. Take before meals. 30 tablet 5 nitrofurantoin, macrocrystal-monohydrate, (Macrobid) 100 MG capsule Take 1 capsule (100 mg) by mouth at bedtime 90 capsule 3 oxygen (O2) gas Inhale 4 L/min continuously polycarbophil (Fiber-Lax) 625 MG tablet Take 1 tablet (625 mg) by mouth Daily 90 tablet 1 sertraline (Zoloft) 50 MG tablet Take 50 mg by mouth in the morning. simvastatin (Zocor) 20 MG tablet Take 1 tablet (20 mg) by mouth 1 (one) time each day at the same time 90 tablet 0 albuterol HFA 90 mcg/act inhaler Inhale 2 puffs every 4 (four) hours if needed for wheezing or shortness of breath sertraline (Zoloft) 100 MG tablet Take 1 tablet (100 mg) by mouth Daily 90 tablet 0 No current facility-administered medications for this visit. Past Medical History: Diagnosis Date Acute diastolic heart failure ([facility]) 07/22/2024 Allergies BMI 33.0-33.9,adult Breakthrough seizure ([facility]) 07/22/2024 Chronic obstructive pulmonary disease ([facility]) 07/22/2024 Chronic respiratory failure with hypoxia and hypercapnia ([facility]) 07/22/2024 Controlled type 2 diabetes mellitus without complication Developmental delay Diabetes mellitus with hypoglycemia ([facility]) 07/22/2024 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 12/08/2008 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/2024 DM type 2 (diabetes mellitus, type 2) ([facility]) Down syndrome 11/08/2008 Down syndrome 04/2016 Pseudoseizure Hospitalization Dysuria 07/22/2024 Factitious illness ([facility]) 10/23/2016 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[facility]) 11/08/2008 Gross hematuria 07/22/2024 Heart disease History of heart valve replacement HTN (hypertension) ([facility]) Hypersomnia 12/08/2008 Hypertension ([facility]) 07/22/2024 Hypothyroidism ([facility]) Microhematuria 07/22/2024 Obesity Obesity (BMI 30.0-34.9) OM (onychomycosis) 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 Scoliosis Seizures ([facility]) Sensorineural hearing loss 07/22/2024 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 Snoring Tinea pedis Toe pain, bilateral Transient alteration of awareness 07/02/2016 Past Surgical History: Procedure Laterality Date AORTIC VALVE REPLACEMENT 12/03/2016 Family History Problem Relation Name Age of Onset Lung cancer Mother jose cruz No Known Problems Brother jose angel pringleb1973 Social History Tobacco Use Smoking status: Never Smokeless tobacco: Never Substance Use Topics Alcohol use: Never BP 124/73 (BP Location: Left arm, Patient Position: Sitting) Pulse (!) 113 Ht 4' 8 Wt 160 lb SpO2 98% BMI 35.87 kg/m Exam: Heart: regular rate Lungs: clear to auscultation bilaterally, no wheezes/rales/rhonchi, no resp distress Extremities: no edema noted, no visible rashes Neuro: alert, oriented x3 Imaging Reviewed: Assessment/Plan: Hypoxia -- it does sound as if the patient did have some hypoxia after hospitalization in 2022. Shewas discharged with oxygen and BiPAP at that point. Her oxygen saturations did remain very well at rest on room air today. I did test her on room air in her oxygen saturations were noted to be 94 %. She then ambulated around the office several laps and her oxygen saturations did not fall below 92 %. At this time we discussed continuing the use of oxygen at night with the BiPAP machine. However she does not need to use this regularly during the day. They will continue with spot checks of her pulse oximeter. If her saturations are 88 % or less than oxygen will be applied at that point at 2 L nasal cannula. She will follow here in a few months time to reassess her symptoms and her need for oxygen. She does remain compliant with use of her BiPAP machine. JANET -- I do not believe the patient had a sleep study performed but was discharged from the hospital in 2022 with a BiPAP machine per report of the caregiver. She does remain compliant with this on anightly basis. She does average use this 4-6 hours per night. She will continue with regular use ofher BiPAP given that she has been benefitting from and tolerating its use. At this time she will continue to use oxygen bled into the machine. If she does not require oxygen during the day at her next office visit then a overnight pulse oximeter will be done on room air with her BiPAP machine afterher next office visit. Her caregiver understands the plan and is agreeable. Follow up in about 2 months (around 09/21/2024) for chronic resp failure. Patsy Craft DO documented in this encounterMissouri Baptist Medical [id number] Telephone encounter Note* Telephone Encounter - Carson Menendez - 07/05/2024 9:10 AM EDT KVNG ROSS [facility] [id number] Miscellaneous Notes* Telephone Encounter - Carson Menendez - 07/05/2024 9:10 AM EDT LOTRISONE CREAM documented in this encounterMissouri Baptist Medical [id number] NotePatient Education Caregiving Antibiotic Medicine, Adult Antibiotic medicines are used to treat infections caused by bacteria. These medicines do not work for illnesses caused by viruses. Antibiotics work by killing the bacteria that are making you sick, but they can also have serious side effects. Antibiotics must be used safely and only when needed. When do I need to take antibiotics? You may need antibiotics for: ??? A urinary tract infection (UTI). ??? Strep throat. ??? Bacterial sinus infection. ??? Meningitis. ??? Serious lung infections. Your health care provider may start you on antibiotics while you are waiting for test results. Tests may include a culture of the throat, urine, blood, or mucus. Your health care provider may change or stop your antibiotic depending on your test results. When are antibiotics not needed? You do not need antibiotics for most common illnesses. These illnesses may be caused by a virus, not by bacteria. You do not need antibiotics for: ??? The common cold. ??? The flu (influenza). ??? Sore throat. ??? Discolored mucus. ??? Bronchitis. Antibiotics are not always needed for all infections caused by bacteria. Many of these infections clear up on their own. Do not take antibiotics when they are not needed. How long should I take my antibiotic? You must take the entire amount prescribed to you. Take your antibiotics as told by your health care provider. Do not stop taking your antibiotics even if you start to feel better. If you stop takingthem too soon: ??? You may feel sick again. ??? Your infection may get harder to treat. Each course of antibiotics needs a different length of time to work. The length of time may vary from a few days to a few weeks. What if I miss a dose? Try not to miss any doses of medicine. If you miss a dose, call your health care provider or pharmacist for help. Sometimes, it is okay to take the missed dose as soon as possible. Do not take doubleor extra doses. What are the risks of taking antibiotics? Antibiotics can cause: ??? Allergic reactions. ??? Nausea. ??? Yeast infections. ??? Liver problems. Antibiotics can also cause an infection called Clostridioides difficile (C. difficile or C. diff), which causes severe diarrhea. This infection happens when the antibiotics kill the healthy bacteria in your intestines. This allows C. diff to grow. C. diff needs to be treated right away. Let your health care provider know if: ??? You have diarrhea while taking an antibiotic. ??? You have diarrhea after you stop taking an antibiotic. C. diff infection can start weeks after stopping the antibiotic. Taking an antibiotic also puts you at risk for getting sick in the future with bacteria that do notrespond to medicine (antibiotic-resistant infection). Antibiotics can cause bacteria to change so that if the antibiotic is taken again, the medicine cannot kill the bacteria. These infections can bemore serious because they are hard, or sometimes impossible, to treat. Do antibiotics affect control? control pills may not work while you are taking antibiotics. If you are taking control pills: ??? Keep taking them as usual. ??? Use a second form of control, such as a condom, to avoid unwanted . Do this for as long as told by your health care provider. What else should I know about taking antibiotics? Take antibiotics exactly as told. ??? Take the correct amount of medicine at the same time each day. ??? Ask your health care provider: ? How long to wait between doses. ? If you should take your antibiotic with food or water. ? If you should avoid certain foods, drinks, or medicines while taking your antibiotics. ? If you need to watch for any side effects. ??? Use only the antibiotics prescribed to you by your health care provider. Do not use antibioticsprescribed for someone else. ??? Drink a large glass of water when taking your antibiotics unless told otherwise. Drink enough fluid to keep your urine pale yellow. ??? Ask your pharmacist for a dosage syringe, cup, or spoon that correctly measures your antibiotics. ??? Ask your pharmacist or health care provider how to safely get rid of leftover medicine. Follow these instructions at home: ??? Take your antibiotics as told by your health care provider. Do not stop taking your antibioticseven if you start to feel better. ??? Return to your normal activities as told by your health care provider. Ask your health care provider what activities are safe for you. Contact a health care provider if: ??? Your symptoms get worse. ??? You have new joint pain or muscle aches that begin after starting your antibiotic. ??? You have side effects from your antibiotic, such as: ? Stomach pain. ? Diarrhea. ? Nausea. ? White patches in your mouth or throat. Get help right away if: ??? You have sig (more content not included)...[facility] 06-23-2024 History of Present illness Narrative* DEION Patel - 06/23/2024 10:20 AM EDT Images from the original note were not included. Subjective Kelsey Graves is a 43 y.o. year old female No chief complaint on file. 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 Heart disease History of heart valve replacement HTN (hypertension) ([facility]) Hypersomnia 12/08/2008 Hypothyroidism ([facility]) Obesity Obesity (BMI 30.0-34.9) OM (onychomycosis) 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 Scoliosis Seizures ([facility]) 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 Sig Documenting Provider Last Dose Status acetaminophen (Tylenol) 325 MG tablet [id number] Take 325 mg by mouth every 6 (six) hours if needed for mild pain Active albuterol HFA 90 mcg/act inhaler [id number] Inhale 2 puffs every 4 (four) hours if needed for wheezing or shortness of breath Alize Arrington NP 05/14/24 235 Blood Glucose Monitoring Suppl (True Metrix Meter) w/Device kit [id number] No USE TO TEST BLOOD SUGARAmy MARTHA Kennedy Taking Active clotrimazole-betamethasone (Lotrisone) cream [id number] APPLY 1 APPLICATION TOPICALLY TO THE AFFECTEDAREA(S) IN THE MORNING AND 1 APPLICATION TOPICALLY BEFORE BEDTIME Raymon Pepper DPM Active Cranberry-Vit C-Lactobacillus (RA Cranberry Supplements) 450-30 MG tablet [id number] Take 1 tablet bymouth Daily Alize Arrington NP Active Discontinued 05/19/24 135 levETIRAcetam (Keppra) 750 MG tablet [id number] Take 1 tablet (750 mg) by mouth in the morning and 1 tablet (750 mg) before bedtime. Alize Arrington NP Active Discontinued 05/19/24 135 levothyroxine (Synthroid, Levoxyl) 75 MCG tablet [id number] Take 1 tablet (75 mcg) by mouth in the morning. Take before meals. Alize Arrington NP Active Discontinued 05/19/24 135 polycarbophil (Fiber-Lax) 625 MG tablet [id number] Take 1 tablet (625 mg) by mouth Daily Alize Arrington NP Active sertraline (Zoloft) 100 MG tablet [id number] Take 1 tablet (100 mg) by mouth Daily Delgado Valdez MDExpired 04/28/24 235 sertraline (Zoloft) 50 MG tablet [id number] Take 50 mg by mouth in the morning. Alize Arrington NP Active Discontinued 05/19/24 135 simvastatin (Zocor) 20 MG tablet [id number] Take 1 tablet (20 mg) by mouth 1 (one) time each day at the same time Alize Arrington NP Active sulfamethoxazole-trimethoprim (Bactrim DS) 800-160 MG per tablet [id number] Take 1 tablet by mouth inthe morning and 1 tablet before bedtime. Do all this for 7 days. Delgado Valdez MD Active HPI Seizure - caregiver reports no sx of seizure activity since last visit. -notes that sometimes the pt pretends to be having a seizure. -Denies any tongue biting or bladder incontinence. -She denies any recent head injury. - She denies any SE. -She is sleeping well at night. -The caregiver also notes some concerns for start of dementia. -She states that she has severe changes in her mood in the evening and has become more forgetful. ROS Review of Systems Constitutional: Positive for fatigue. Negative for chills and fever. Respiratory: Positive for shortness of breath. Neurological: Positive for seizures. Negative for headaches. Psychiatric/Behavioral: Negative for agitation and sleep disturbance. Objective Visit Vitals BP 122/82 Ht 4' 8 Wt 160 lb BMI 35.87 kg/m OB Status Having periods Smoking Status Never BSA 1.69 m Neurological Exam Mental Status Awake and alert. Oriented only to person. dysarthria present. Fund of knowledge is abnormal. Cranial Nerves CN III, IV, : Normal lids and orbits bilaterally. Pupils equal round and reactive to light bilaterally. CN VII: Right: There is no facial weakness. Left: There is no facial weakness. CN VIII: Right: Hearing is decreased. Left: Hearing is decreased. CN XI: Shoulder shrug strength is normal. CN XII: Tongue midline without atrophy or fasciculations. Sensory Light touch is normal in upper and lower extremities. Gait Normal casual, toe, heel and tandem gait. Motor Examination RUE Strength deltoid, biceps, triceps, wrist extensors, wrist extensors, wrist flexor, exterior interior specialist strength 5/5. LUE Strength deltoid, biceps, triceps, wrist extensors, wrist extensors, wrist flexor, exterior interior specialist strength 5/5. RLE Strength illopsoas, quadriceps, tibialis anterior, and gastrocnemius strength 5/5. LLE Strength illopsoas, quadriceps, tibialis anterior, and gastrocnemius strength 5/5. Tone Normal tone x4 extremities. Reflexes: RUE biceps reflex 2, LUE biceps reflex 2, RLE knee reflex 2, LLE knee reflex 2, Assessment and Plan Diagnoses and all orders for this visit: Seizure disorder ([facility]) - divalproex (Depakote) 250 MG EC tablet; Take 1 tablet (250 mg) by mouth in the morning and 1 tablet (250 mg) before bedtime. Do not crush, chew, or split. Patient was seen at [facility] 06/22/2022 for seizure like activity and while admitted, she was found to have acute hypoxic and hypercapnic respiratory failure and bacterial pneumonia. She has history of Down Sydnrome, DM, hypothyroidism, pseudoseizures, AVMs, JANET, and constipation. Head CT was nonacute. TSH and B12 were within normal limits. Routine EEG revealed moderately slow background rhythm, consistent with encephalopathy and was somewhat limited due to near continuous extraneous or motion or muscle related artifact. 2 Hour EEG 08/15/2022 was normal. She was started on Keppra and continues on this. Keppra level 10/26/2022 was 17. She was thought to have a combination of epileptic and nonepileptic events. Ambulatory EEG 01/02/2023 was normal. She did have a few episodes reportedly during this EEG without EEG correlate, which is consistent with noneplieptic events. She was recently at the ER for seizure like episodes. She presented 01/15/24 after breakthrough event and was found to have UTI.Keppra was increased as she is prone to UTIs and she has been doing well with adjusted dose. She has completed antibiotics. Her caregiver notes that she has not had seizures but is having mood changes and is more forgetful which could be from her Keppra. Plan: 1.Due to side effects of Keppra, I will start Dpakote 250mg PO BID for seizure prevention. 2. She can slowly wean Keppra 750mg daily for 7 days then every other day for 7 days. 3. I counseled the caregiver on the side effects of medications. 4. They are advised to call for any new or worsening symptoms. 5. Plan written on communication sheet. 6. Continue with seizure precautions. Follow up in 8 weeks documented in this encounterMissouri Baptist Medical [id number] Radiology Diagnostic [facility] [place] [address] [place] [address] CT Scan Report Signed Patient: Kelsey Graves MR#: [id number] : 1980 Acct:[id number] Age/Sex: 43 / F ADM Date: 5 Loc: ER Room: Type: [facility] ER Attending Dr: Copies to: Lolis Ludwig DO~ Ordering Provider: Lolis Ludwig DO Date of Service: 05/25/24 CT/CT lumbar spine wo con: Fall last week, back pain CT LUMBAR SPINE WITHOUT CONTRAST TECHNIQUE: Axial acquisition of the lumbar spine obtained with the sagittal and coronal reconstructed imaging.The CT exam was performed using one or more the following dose reduction techniques: Automated exposure control, adjustment of the MA and/or Kv according to patient size, or use of the iterative reconstruction technique. HISTORY: Fell last week COMPARISON: plain film imaging 05/06/2023 FINDINGS: The last fully segmented vertebral pair is operationally defined as L5/S1. POST SURGERY CHANGES: None BONY ALIGNMENT: Scoliosis. SPINAL CANAL:Patent bony central canal LUMBAR FRACTURE: None BONY LESIONS: None KIDNEYS: No hydronephrosis is identified. AORTA: No aortic aneurysm is seen. Lower thoracic level: Unremarkable Multilevel mild disc space narrowing and degenerative endplate changes. Multilevel facet degeneration. Assessment of disc herniation limited with CT examination. No obvious disc herniation seen with CT exam. CT/CT lumbar spine wo con IMPRESSION:No acute displaced lumbar spine fracture. Multilevel degeneration and scoliosis. Impression dictated by: Pardeep Montoya M.D.05/25/2024 11:05 PM Dictation Location: [facility]20 Transcribed By: [facility] 05/25/242304 Dictated By: Pardeep Montoya DO 05/25/242302 Signed By: 05/25/24 230 [facility]04-01-2025 History of Present illness Narrative * Delgado Valdez MD - 05/25/2024 3:40 PM EDT NOTES TO ME AND NURSE: MET OR NOT MET Check navina Care gaps I2- Labs? Smoker? CIM bill? Follow up- SUBJECTIVE History of Present Illness Patient complains of back pain and having problems with burning on urination, CURRENT MEDICATIONS Current Outpatient Medications: acetaminophen (Tylenol) 325 MG tablet, Take 325 mg by mouth every 6 (six) hours if needed for mild pain, Disp: , Rfl: albuterol HFA 90 mcg/act inhaler, Inhale 2 puffs every 4 (four) hours if needed for wheezing or shortness of breath, Disp: , Rfl: Blood Glucose Monitoring Suppl (True Metrix Meter) w/Device kit, USE TO TEST BLOOD SUGAR, Disp: , Rfl: clotrimazole-betamethasone (Lotrisone) cream, APPLY 1 APPLICATION TOPICALLY TO THE AFFECTED AREA(S)IN THE MORNING AND 1 APPLICATION TOPICALLY BEFORE BEDTIME, Disp: 45 g, Rfl: 0 Cranberry-Vit C-Lactobacillus (RA Cranberry Supplements) 450-30 MG tablet, Take 1 tablet by mouth Daily, Disp: 90 tablet, Rfl: 3 levETIRAcetam (Keppra) 750 MG tablet, Take 1 tablet (750 mg) by mouth in the morning and 1 tablet (750 mg) before bedtime., Disp: 60 tablet, Rfl: 1 levothyroxine (Synthroid, Levoxyl) 75 MCG tablet, Take 1 tablet (75 mcg) by mouth in the morning. Take before meals., Disp: 30 tablet, Rfl: 5 polycarbophil (Fiber-Lax) 625 MG tablet, Take 1 tablet (625 mg) by mouth Daily, Disp: 90 tablet, Rfl: 1 sertraline (Zoloft) 100 MG tablet, Take 1 tablet (100 mg) by mouth Daily, Disp: 90 tablet, Rfl: 0 sertraline (Zoloft) 50 MG tablet, Take 50 mg by mouth in the morning., Disp: , Rfl: simvastatin (Zocor) 20 MG tablet, Take 1 tablet (20 mg) by mouth 1 (one) time each day at the same time, Disp: 90 tablet, Rfl: 0 RECENT VITAL SIGNS 2023 2:36 PM 01/14/2024 1:30 PM 02/02/2024 2:52 PM 02/27/2024 2:25 PM 04/14/2024 1:20 PM 04/28/2024 9:39 AM 05/07/2024 2:25 PM Vitals BMI 43.05 kg/m2 37.71 kg/m2 37.44 kg/m2 37.44 kg/m2 36.77 kg/m2 35.83 kg/m2 35.65 kg/m2 BSA (m2) 1.86 m2 1.74 m2 1.73 m2 1.73 m2 1.71 m2 1.69 m2 1.69 m2 Systolic 125 98 112 116 128 Diastolic 80 64 82 75 76 Heart Rate 88 79 73 80 SpO2 98 % 98 % 97 % Temp 97.3 F 97.8 F 97.9 F Resp 22 18 Height (in) 4' 8 4' 8 4' 8 4' 8 4' 8 4' 8 4' 8 Weight (lb) 192 168.2 167 167 164 159.8 159 Visit Report Report Report Report Report RECENT LABS Recent Results (from the past 6 weeks) POCT glycosylated hemoglobin (Hb A1C) docked device Collection Time: 04/14/24 1:38 PM Result Value Ref Range Hemoglobin A1C 5.5 POCT microalbumin manually resulted Collection Time: 04/14/24 1:38 PM Result Value Ref Range MICROALBUMIN, URINE 30 ALB/CREAT RATIO <30 URINE CREAT 100 POCT Urinalysis dipstick Collection Time: 04/28/24 10:02 AM Result Value Ref Range Color, UA Yellow Clarity, UA Cloudy Glucose, UA Negative Negative - 2000(110) ++++ mg/dL Bilirubin, UA Negative Negative - 4(70) +++ mg/dL Ketones, UA Negative Negative - 160(16) ++++ mg/dL Spec Grav, UA 1.030 1 - 1.03 Blood, UA Positive Negative - 50 Elder/mcL pH, UA 5.5 5 - 9 Protein, UA Negative Negative - 2000(20) ++++ mg/dL Urobilinogen, UA 0.2 0.2 - 12 mg/dL Leukocytes, UA Many Negative - 500+++ Fili/mcL Nitrite, UA Negative Negative - Positive POCT urinalysis dipstick manually resulted Collection Time: 05/25/24 3:45 PM Result Value Ref Range Color, UA Yellow Clarity, UA Clear Glucose, UA Negative Negative - 2000(110) ++++ mg/dL Bilirubin, UA 1+ Negative - 4(70) +++ mg/dL Ketones, UA Negative Negative - 160(16) ++++ mg/dL Spec Grav, UA 1.025 1 - 1.03 Blood, UA Negative Negative - 50 Elder/mcL pH, UA 6.0 5 - 9 Protein, UA Positive Negative - 2000(20) ++++ mg/dL Urobilinogen, UA 0.2 0.2 - 12 mg/dL Leukocytes, UA 2+ Negative - 500+++ Fili/mcL Nitrite, UA Negative Negative - Positive OBJECTIVE Physical Exam Physical Exam ASSESSMENT/PLAN Problem List Items Addressed This Visit None Visit Diagnoses Dysuria - Primary Stable Relevant Medications sulfamethoxazole-trimethoprim (Bactrim DS) 800-160 MG per tablet Frequent UTI Start the medication Relevant Medications sulfamethoxazole-trimethoprim (Bactrim DS) 800-160 MG per tablet Other Relevant Orders POCT urinalysis dipstick manually resulted (Completed) URINARY TRACT INFECTION (HTRX) Assessment & Plan FOLLOW-UP No follow-ups on file. Pt comes to office for possible UTI. Urine sample provided. Ran urinalysis & was diagnosed with UTI. [phone] kyle (caregiver) documented in this encounterMissouri Baptist Medical [id number] Telephone encounter Note* Telephone Encounter - ELENA GUZMAN - 05/19/2024 12:46 PM EDT 06/30/24 MANI 04/28/24 [facility] [id number] Miscellaneous Notes* Telephone Encounter - ELENA GUZMAN - 05/19/2024 12:46 PM EDT 06/30/24 MANI 04/28/24 documented in this [facility]03-05-2025 History of Present illness Narrative* Alize Arrington NP - 04/28/2024 9:40 AM EST Family Medicine Note Subjective: Chief Complaint: ER follow-up HPI: Kelsey Graves presents to the office today for emergency room follow-up. She was seen in the emergency department twice over the past week due to seizure. She was noted to be positive for UTI at one of her visits and was given antibiotics. She has been seizure free since her last ER visit. She does have complaints of dysuria in office today. Her aid is also requesting a referral to audiology for hearing evaluation. Current Outpatient Medications: acetaminophen (Tylenol) 325 MG tablet, Take 325 mg by mouth every 6 (six) hours if needed for mild pain, Disp: , Rfl: albuterol HFA 90 mcg/act inhaler, Inhale 2 puffs every 4 (four) hours if needed for wheezing or shortness of breath, Disp: , Rfl: Blood Glucose Monitoring Suppl (True Metrix Meter) w/Device kit, USE TO TEST BLOOD SUGAR, Disp: , Rfl: clotrimazole-betamethasone (Lotrisone) cream, APPLY 1 APPLICATION TOPICALLY TO THE AFFECTED AREA(S)IN THE MORNING AND 1 APPLICATION TOPICALLY BEFORE BEDTIME, Disp: 45 g, Rfl: 0 levETIRAcetam (Keppra) 750 MG tablet, Take 1 tablet (750 mg) by mouth in the morning and 1 tablet (750 mg) before bedtime., Disp: 60 tablet, Rfl: 1 levothyroxine (Synthroid, Levoxyl) 75 MCG tablet, Take 1 tablet (75 mcg) by mouth in the morning. Take before meals., Disp: 30 tablet, Rfl: 5 magnesium hydroxide (Milk of Magnesia) 400 MG/5ML suspension, Take 15 mL by mouth 2 (two) times a day as needed for constipation, Disp: 360 mL, Rfl: 1 nystatin (Mycostatin) cream, Apply 1 application topically if needed (as needed for yeast under bilateral breast and skin folds.) for up to 14 days, Disp: , Rfl: polycarbophil (Fiber-Lax) 625 MG tablet, Take 1 tablet (625 mg) by mouth Daily, Disp: 90 tablet, Rfl: 1 sertraline (Zoloft) 100 MG tablet, Take 1 tablet (100 mg) by mouth Daily, Disp: 90 tablet, Rfl: 0 sertraline (Zoloft) 50 MG tablet, Take 50 mg by mouth in the morning., Disp: , Rfl: simvastatin (Zocor) 20 MG tablet, Take 1 tablet (20 mg) by mouth 1 (one) time each day at the same time, Disp: 90 tablet, Rfl: 0 Cranberry-Vit C-Lactobacillus (RA Cranberry Supplements) 450-30 MG tablet, Take 1 tablet by mouth Daily, Disp: 90 tablet, Rfl: 3 nitrofurantoin, macrocrystal-monohydrate, (Macrobid) 100 MG capsule, Take 1 capsule (100 mg) by mouth in the morning and 1 capsule (100 mg) before bedtime. 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0-34.9) OM (onychomycosis) Psychiatric pseudoseizure ([facility] [place]) 04/2016 Scoliosis Seizures ([facility] [place]) 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 Snoring Tinea pedis Toe pain, bilateral Transient alteration of awareness 07/02/2016 Allergies: Allergies Allergen Reactions Diazepam Unknown Social History: Tobacco Use: Tobacco Use: Low Risk (04/28/2024) Patient History Smoking Tobacco Use: Never Smokeless Tobacco Use: Never Passive Exposure: Not on file Objective: Vitals: 04/28/24 0939 BP: 128/76 Pulse: 80 Resp: 22 Temp: 97.9 F SpO2: 97% Weight: 159 lb 12.8 oz Height: 4' 8 Physical Exam Vitals and nursing note reviewed. Exam conducted with a drug abuse treatment specialist present. Constitutional: General: She is not in acute distress. Appearance: Normal appearance. She is not ill-appearing. HENT: Head: Normocephalic and atraumatic. Right Ear: External ear normal. Left Ear: External ear normal. Nose: Nose normal. Mouth/Throat: Mouth: Mucous membranes are moist. Eyes: Extraocular Movements: Extraocular movements intact. Pupils: Pupils are equal, round, and reactive to light. Cardiovascular: Rate and Rhythm: Normal rate. Pulses: Normal pulses. Heart sounds: No murmur heard. Pulmonary: Effort: Pulmonary effort is normal. Breath sounds: No wheezing, rhonchi or rales. Abdominal: General: Bowel sounds are normal. There is no distension. Tenderness: There is no abdominal tenderness. Musculoskeletal: General: Normal range of motion. Cervical back: Normal range of motion. Skin: General: Skin is warm and dry. Neurological: General: No focal deficit present. Mental Status: She is alert and oriented to person, place, and time. Psychiatric: Mood and Affect: Mood normal. Behavior: Behavior normal. Judgment: Judgment normal. Assessment: Assess/Plan Problem List Items Addressed This Visit Bilateral hearing loss Relevant Orders Ambulatory referral to Audiology She does have a history of hearing loss and has had hearing aids in the past. She is due for new hearing aids and is requesting a referral to audiology. This will be sent today. Other Visit Diagnoses Frequent UTI - Primary Relevant Medications Cranberry-Vit C-Lactobacillus (RA Cranberry Supplements) 450-30 MG tablet nitrofurantoin, macrocrystal-monohydrate, (Macrobid) 100 MG capsule Urinalysis obtained in office. Results suggest active urine infection. Please take all new medication as directed. Increase fluid intake, specifically water. Good handwashing. Recommended probiotic while taking antibiotic. Call office if symptoms have not started to improve within the next 72 hours. Report to ER for worsening of symptoms if outside of office hours. Hospital Follow-up Reviewed hospital records including labs, imaging, procedure and consult notes. Overall patient is feeling better and is encouraged to keep follow-up appointments with specialists as scheduled. Patient voices no further concerns at this time. Dysuria Relevant Medications Cranberry-Vit C-Lactobacillus (RA Cranberry Supplements) 450-30 MG tablet nitrofurantoin, macrocrystal-monohydrate, (Macrobid) 100 MG capsule Other Relevant Orders POCT Urinalysis dipstick (Completed) Follow-up: Follow up in about 2 weeks (around 05/12/2024), or if symptoms worsen or fail to improve. documented in this encounterMissouri Baptist Medical [id number] History of Present illness Narrative* Alize Arrington NP - 04/14/2024 1:20 PM EST Family Medicine Note Subjective : Chief Complaint: Kelsey Graves is an 43 y.o. female here for an annual wellness visit. She is upto date on lab work. She is due for Hgb A1C and microurine which will be completed today. She is accompanied by a nurse to todays visit who is requesting medication clarification on some of her medica tions. She denies further complaints or concerns at this time. I have reviewed and reconciled the history and medication list with the patient today. Current Outpatient Medications Medication Sig Dispense Refill acetaminophen (Tylenol) 325 MG tablet Take 325 mg by mouth every 6 (six) hours if needed for mild pain Blood Glucose Monitoring Suppl (True Metrix Meter) w/Device kit USE TO TEST BLOOD SUGAR clotrimazole-betamethasone (Lotrisone) cream APPLY 1 APPLICATION TOPICALLY TO THE AFFECTED AREA(S) IN THE MORNING AND 1 APPLICATION TOPICALLY BEFORE BEDTIME 45 g 0 levETIRAcetam (Keppra) 750 MG tablet Take 1 tablet (750 mg) by mouth in the morning and 1 tablet (750 mg) before bedtime. 60 tablet 1 magnesium hydroxide (Milk of Magnesia) 400 MG/5ML suspension Take 15 mL by mouth 2 (two) times a day as needed for constipation 360 mL 1 polycarbophil (Fiber-Lax) 625 MG tablet Take 1 tablet (625 mg) by mouth Daily 90 tablet 1 sertraline (Zoloft) 100 MG tablet Take 1 tablet (100 mg) by mouth Daily 90 tablet 0 sertraline (Zoloft) 50 MG tablet Take 50 mg by mouth in the morning. simvastatin (Zocor) 20 MG tablet Take 1 tablet (20 mg) by mouth 1 (one) time each day at the same time 90 tablet 0 albuterol HFA 90 mcg/act inhaler Inhale 2 puffs every 4 (four) hours if needed for wheezing or shortness of breath levothyroxine (Synthroid, Levoxyl) 75 MCG tablet Take 1 tablet (75 mcg) by mouth in the morning. Take before meals. 30 tablet 5 nystatin (Mycostatin) cream Apply 1 application topically if needed (as needed for yeast under bilateral breast and skin folds.) for up to 14 days No current facility-administered medications for this visit. List of current healthcare providers: Patient Care Team: Delgado Valdez MD as PCP - General (Family Medicine) Delgado Valdez MD as PCP - ACO Pierre Kennedy NP as Nurse Practitioner (Family Medicine) Alize Arrington NP as Nurse Practitioner (Family Medicine) Medicare Annual Visit Objective : BP 116/75 (BP Location: Left arm, Patient Position: Sitting) Pulse 73 Temp 97.8 F Ht 4' 8 Wt 164 lb SpO2 98% BMI 36.77 kg/m No results found. Physical Exam Vitals and nursing note reviewed. Constitutional: General: She is not in acute distress. Appearance: Normal appearance. She is not ill-appearing. HENT: Head: Normocephalic and atraumatic. Right Ear: External ear normal. Left Ear: External ear normal. Nose: Nose normal. Mouth/Throat: Mouth: Mucous membranes are moist. Eyes: Extraocular Movements: Extraocular movements intact. Pupils: Pupils are equal, round, and reactive to light. Neck: Vascular: No carotid bruit. Cardiovascular: Rate and Rhythm: Normal rate. Pulses: Normal pulses. Heart sounds: No murmur heard. Pulmonary: Effort: Pulmonary effort is normal. Breath sounds: No wheezing, rhonchi or rales. Abdominal: General: Bowel sounds are normal. There is no distension. Tenderness: There is no abdominal tenderness. Musculoskeletal: General: Normal range of motion. Cervical back: Normal range of motion. Skin: General: Skin is warm and dry. Neurological: General: No focal deficit present. Mental Status: She is alert and oriented to person, place, and time. Comments: Patient does have a history of Down Syndrome. Is accompanied to today's visit by nurse. Psychiatric: Mood and Affect: Mood normal. Behavior: Behavior normal. Judgment: Judgment normal. Assessment/Plan : The following health maintenance schedule was reviewed with the patient and provided in printed form in the after visit summary: Health Maintenance Topic Date Due Diabetes: Retinopathy Screening 03/12/2024 Influenza Vaccine (1) 08/23/2024 (Originally 10/26/2023) Diabetes: Hemoglobin A1C 07/12/2024 Diabetes: Urine Protein Screening 04/14/2025 Medicare Annual Wellness (AWV) 04/14/2025 Mammogram Discontinued Cervical Cancer Screening Discontinued Diagnoses and all orders for this visit: Candidiasis of breast - nystatin (Mycostatin) cream; Apply 1 application topically if needed (as needed for yeast under bilateral breast and skin folds.) for up to 14 days Type 2 diabetes mellitus without complication, unspecified whether penitentiary insulin use ([facility]) - POCT glycosylated hemoglobin (Hb A1C) docked device - POCT microalbumin manually resulted A1C readings reviewed with patient today in office. Results 5.5. Encouraged patient to continue working on lifestyle modifications with diet and exercise. Care plan was discussed with the patient today and reviewed changes to medications as well as A1c goals. Patient is to call with any questions or concerns. Patient voices understanding as well as risk for diabetes related complications if good glucose control is not obtained Chronic obstructive pulmonary disease, unspecified COPD type (CMS/HCC) - albuterol HFA 90 mcg/act inhaler; Inhale 2 puffs every 4 (four) hours if needed for wheezing or shortness of breath Hypothyroidism, unspecified type (CMS/HCC) - levothyroxine (Synthroid, Levoxyl) 75 MCG tablet; Take 1 tablet (75 mcg) by mouth in the morning.Take before meals. Encounter for annual wellness visit (AWV) in Medicare patient Patient here for annual Medicare Wellness visit. Demographics were updated. Self-assessment was completed. Past medical, family and social history were updated. The medication list, including supplements being taken, was updated. A list of other current medical providers was established/updated. Time was spent discussing health maintenance issues, ordering proper testing, and schedule was provided regarding recommended screening. We discussed safety issues and fall risk. Depression screening was completed and addressed. Cognitive function was assessed by direct observation and assessment of ability to perform ADL's and IADL's was done. We also discussed Advanced Directives and code status. The current BMI was provided along with an education packet regarding healthy living and maintenanceof a healthy weight. The BMI will cont to be monitored at routine office visits as well. Major riskfactors for chronic disease including family history were discussed . Routine general medical examination at health care facility Advance Care Planning She does have a guardianship in place Orders Placed This Encounter Procedures POCT glycosylated hemoglobin (Hb A1C) docked device POCT microalbumin manually resulted Follow up in about 6 months (around 10/12/2024) for CIM. Electronically signed by Alize Arrington NP on April 14, 2024 * ELENA GUZMAN - 04/14/2024 1:20 PM EST Retinavue incomplete- unable to keep eyes open long enough. documented in this encounterMissouri Baptist Medical [id number] Telephone encounter Note* Telephone Encounter - ROCK CELESTE - 04/06/2024 9:47 AM EST Patient requesting refill of lotrisone cream [facility] [id number] Miscellaneous Notes* Telephone Encounter - ROCK CELESTE - 04/06/2024 9:47 AM EST Patient requesting refill of lotrisone cream documented in this encounterMissouri Baptist Medical [id number] History of Present illness Narrative* Raymon Pepper, URIEL - 02/27/2024 2:30 PM EST Patient: Kelsey Graves : 1980 PCP: Delgado Valdez MD SUBJECTIVE This is a 43 y.o. female that presents today with a CC of elongated, thick nails. Pt states nails have been elongated and thick for many years and cause pain with ambulation in shoegear. Pt has tried previous treatment with minimal relief. Pt presents today for nail care and treatment. Presents today with care worker She is DM2 Patient also presents today for follow-up of tinea pedis infection and states that they have been using Lotrisone cream and powders with positive improvement. 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 12/08/2008 DM type 2 (diabetes mellitus, type 2) ([facility]) Down syndrome 11/08/2008 Down syndrome 04/2016 Pseudoseizure Hospitalization Factitious illness ([facility]) 10/23/2016 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 Heart disease History of heart valve replacement HTN (hypertension) ([facility]) Hypersomnia 12/08/2008 Hypothyroidism ([facility]) Obesity Obesity (BMI 30.0-34.9) OM (onychomycosis) Psychiatric pseudoseizure ([facility]) 04/2016 Scoliosis Seizures ([facility]) 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 Snoring Tinea pedis Toe pain, bilateral Transient alteration of awareness 07/02/2016 Medications: Current Outpatient Medications: acetaminophen (Tylenol) 325 MG tablet, every 6 (six) hours., Disp: , Rfl: albuterol HFA 90 mcg/act inhaler, every 4 (four) hours., Disp: , Rfl: ammonium lactate (Lac-Hydrin) 12 % lotion, apply 1 application to affected area twice a day for 30 days (Patient not taking: Reported on 01/14/2024), Disp: , Rfl: Blood Glucose Monitoring Suppl (True Metrix Meter) w/Device kit, USE TO TEST BLOOD SUGAR, Disp: , Rfl: cephalexin (Keflex) 500 MG capsule, Sig: TAKE 1 CAPSULE BY MOUTH ON FRIDAY, FRIDAY AND FRIDAY TOPREVENT UTI (Patient not taking: Reported on 01/14/2024), Disp: 60 capsule, Rfl: 0 cetirizine (ZyrTEC) 10 MG tablet, Take 1 tablet (10 mg) by mouth in the morning., Disp: 90 tablet, Rfl: 1 clonazePAM (KlonoPIN) 0.5 MG tablet, every 12 (twelve) hours., Disp: , Rfl: clotrimazole-betamethasone (Lotrisone) cream, APPLY 1 APPLICATION TOPICALLY TO THE AFFECTED AREA(S)IN THE MORNING AND 1 APPLICATION TOPICALLY BEFORE BEDTIME, Disp: 45 g, Rfl: 0 Cranberry-Vitamin C-Vitamin E (Cranberry Plus Vitamin C) 4200-20-3 MG-MG-UNIT capsule, 1 capsule 1 (one) time each day at the same time., Disp: , Rfl: fluticasone (Flonase) 50 MCG/ACT nasal spray, Administer 1 spray into each nostril 1 (one) time each day at the same time, Disp: 16 g, Rfl: 5 Glucose Blood (GLUCOMETER ELITE TEST ), 1 (one) time each day at the same time., Disp: , Rfl: glucose blood (True Metrix Blood Glucose Test) test strip, 1 each by Other route Daily, Disp: 300 each, Rfl: 0 hydrOXYzine HCl (Atarax) 50 MG tablet, Take 1 tablet (50 mg) by mouth as needed at bedtime for anxiety, Disp: 90 tablet, Rfl: 0 levETIRAcetam (Keppra) 750 MG tablet, Take 1 tablet (750 mg) by mouth in the morning and 1 tablet (750 mg) before bedtime., Disp: 60 tablet, Rfl: 3 levothyroxine (Synthroid, Levoxyl) 75 MCG tablet, Take 1 tablet (75 mcg) by mouth in the morning. Take before meals., Disp: 90 tablet, Rfl: 1 magnesium hydroxide (Milk of Magnesia) 400 MG/5ML suspension, Take 15 mL by mouth, Disp: , Rfl: metFORMIN XR (Glucophage-XR) 500 MG 24 hr tablet, Take 1 tablet (500 mg) by mouth 1 (one) time eachday at the same time, Disp: 90 tablet, Rfl: 1 nystatin (Mycostatin) cream, Apply 1 application topically every 12 (twelve) hours, Disp: , Rfl: polycarbophil (Fiber-Lax) 625 MG tablet, Take 1 tablet (625 mg) by mouth Daily, Disp: 90 tablet, Rfl: 1 Probiotic Product (PROBIOTIC PO), 1 (one) time each day at the same time., Disp: , Rfl: sertraline (Zoloft) 100 MG tablet, Take 1 tablet (100 mg) by mouth Daily, Disp: 90 tablet, Rfl: 0 sertraline (Zoloft) 25 MG tablet, Take 1 tablet (25 mg) by mouth Daily, Disp: 90 tablet, Rfl: 0 simvastatin (Zocor) 20 MG tablet, Take 1 tablet (20 mg) by mouth 1 (one) time each day at the same time, Disp: 30 tablet, Rfl: 0 traZODone (Desyrel) 50 MG tablet, Take 1 tablet (50 mg) by mouth as needed at bedtime for sleep, Disp: 30 tablet, Rfl: 2 TRUEplus Lancets 33G misc, 1 Lancet by In Vitro route Daily Use one Lancet daily, E11.9, Disp: 100 each, Rfl: 0 Social History: Social History Socioeconomic History Marital [...] through 10. Positive hair growth b/l feet. Greatly diminished Dry and peeling skin with slight maceration to interdigital spaces bilateral feet with peeling and dry skin noted to interdigital spaces VASC: Positive palpable pedal pulses bilaterally NEURO: Gross sensation intact to bilateral feet ORTHO: Positive pain on palpation to nails 1 through 10 ASSESSMENT 1. Tinea pedis, unspecified laterality 2. 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 Pain due to onychomycosis of toenails of both feet 4. Tinea PLAN Discussed proper foot care with patient today. Continue creams to feet daily of antifungals Debride nails in length and thickness digits 1 through 10 Patient education concerning tinea infection. Discussed use of antifungal cream and foot powders aswell as good foot hygiene and prevention measures. Offered RX today with Rx today Raymon Pepper DPM documented in this encounterMissouri Baptist Medical [id number] History of Present illness Narrative* DEION Patel - 02/02/2024 2:40 PM EST Images from the original note were not included. Subjective Kelsey Graves is a 43 y.o. 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 Heart disease History of heart valve replacement HTN (hypertension) ([facility]) Hypersomnia 12/08/2008 Hypothyroidism ([facility]) Obesity Obesity (BMI 30.0-34.9) OM (onychomycosis) Psychiatric pseudoseizure ([facility]) 04/2016 Scoliosis Seizures ([facility]) 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 Snoring Tinea pedis Toe pain, bilateral Transient alteration of awareness 07/02/2016 Past Surgical History: Procedure Laterality Date AORTIC VALVE REPLACEMENT 12/03/2016 Family History Problem Relation Name Age of Onset Lung cancer Mother jose cruz No Known Problems Brother jose angel [id number] Social History Tobacco Use Smoking status: Never Smokeless tobacco: Never Substance Use Topics Alcohol use: Never Medication Documentation Review Audit Reviewed by Carolann Nj MA (Pump Servicer) on 02/02/24 at 1453 Medication Order Taking? Sig Documenting Provider Last Dose Status acetaminophen (Tylenol) 325 MG tablet [id number] No every 6 (six) hours. Historical MD Kulwant Taking Active albuterol HFA 90 mcg/act inhaler [id number] No every 4 (four) hours. Historical Provider, Taking Active ammonium lactate (Lac-Hydrin) 12 % lotion [id number] No apply 1 application to affected area twice a day for 30 days Patient not taking: Reported on 01/14/2024 Historical ProviderMD Taking Active Blood Glucose Monitoring Suppl (True Metrix Meter) w/Device kit [id number] No USE TO TEST BLOOD SUGARNemo Kennedy NP Taking Active cephalexin (Keflex) 500 MG capsule [id number] No Sig: TAKE 1 CAPSULE BY MOUTH ON FRIDAY, FRIDAY AND FRIDAY TO PREVENT UTI Patient not taking: Reported on 01/14/2024 Nemo Kennedy NP Not Taking Active cetirizine (ZyrTEC) 10 MG tablet [id number] No Take 1 tablet (10 mg) by mouth in the morning. Delgado Hatfield MD Taking 01/14/24 2907 clonazePAM (KlonoPIN) 0.5 MG tablet [id number] No every 12 (twelve) hours. Historical ProviderMD Taking Active clotrimazole-betamethasone (Lotrisone) cream [id number] APPLY 1 APPLICATION TOPICALLY TO THE AFFECTEDAREA(S) IN THE MORNING AND 1 APPLICATION TOPICALLY BEFORE BEDTIME Raymon Pepper DPM Active Cranberry-Vitamin C-Vitamin E (Cranberry Plus Vitamin C) 4200-20-3 MG-MG-UNIT capsule [id number] No 1capsule 1 (one) time each day at the same time. Historical Provider, Taking Active fluticasone (Flonase) 50 MCG/ACT nasal spray [id number] No Administer 1 spray into each nostril 1 (one) time each day at the same time Delgado Valdez MD Taking 01/14/242358 Glucose Blood (GLUCOMETER ELITE TEST ) [id number] No 1 (one) time each day at the same time. Historical Provider, Taking Active glucose blood (True Metrix Blood Glucose Test) test strip [id number] 1 each by Other route Daily Delgado Valdez MD Active hydrOXYzine HCl (Atarax) 50 MG tablet [id number] No Take 1 tablet (50 mg) by mouth as needed at bedtime for anxiety Nemo Kennedy NP Taking 01/14/242358 Discontinued 01/28/24 163 levETIRAcetam (Keppra) 750 MG tablet [id number] Take 1 tablet (750 mg) by mouth in the morning and 1 tablet (750 mg) before bedtime. Alize Arrington NP Active levothyroxine (Synthroid, Levoxyl) 75 MCG tablet [id number] No Take 1 tablet (75 mcg) by mouth in themorning. Take before meals. Nemo Kennedy NP Taking 01/14/242358 magnesium hydroxide (Milk of Magnesia) 400 MG/5ML suspension [id number] Take 15 mL by mouth Active metFORMIN XR (Glucophage-XR) 500 MG 24 hr tablet [id number] No Take 1 tablet (500 mg) by mouth 1 (one) time each day at the same time Delgado Valdez MD Taking 01/14/242358 nystatin (Mycostatin) cream [id number] Apply 1 application topically every 12 (twelve) hours Active Patient not taking: Discontinued 01/28/24 1631 polycarbophil (Fiber-Lax) 625 MG tablet [id number] Take 1 tablet (625 mg) by mouth Daily Alize Arrington NP Active Probiotic Product (PROBIOTIC PO) [id number] No 1 (one) time each day at the same time. Historical Provider, Taking Active sertraline (Zoloft) 100 MG tablet [id number] Take 1 tablet (100 mg) by mouth Daily Delgado Valdez MDActive sertraline (Zoloft) 25 MG tablet [id number] Take 1 tablet (25 mg) by mouth Daily Delgado Valdez MD Active simvastatin (Zocor) 20 MG tablet [id number] Take 1 tablet (20 mg) by mouth 1 (one) time each day at the same time Delgado Valdez MD Active traZODone (Desyrel) 50 MG tablet [id number] No Take 1 tablet (50 mg) by mouth as needed at bedtime for sleep Alize Arrington NP Taking 01/14/242358 TRUEplus Lancets 33G [facility] [place] [id number] No 1 Lancet by In Vitro route Daily Use one Lancet daily, E11.9 Nemo Kennedy NP Taking 01/14/242358 HPI Patient here today for a follow up from hospital visit. She was seen at [facility] for a seizure. She does have a history of seizures. She did not lose consciousness but could not respond. Denies any tongue biting or bladder incontinence. She denies any recent head injury. She did have a UTI at the time of her seizure and was treated with antibiotic. She was increased to Keppra 750 BID. She denies any missed doses. She denies any SE. She denies any seizures since. She is sleeping well at night. She denies any other concerns. She does need refill of her Keppra. ROS Review of Systems Constitutional: Positive for fatigue. Negative for chills and fever. Respiratory: Positive for shortness of breath. Neurological: Positive for seizures. Negative for headaches. Psychiatric/Behavioral: Negative for agitation and sleep disturbance. Objective Visit Vitals BP 112/82 Ht 4' 8 Wt 167 lb LMP 12/25/2023 (Approximate) BMI 37.44 kg/m OB Status Having periods Smoking Status Never BSA 1.73 m Neurological Exam Mental Status Awake and alert. Oriented only to person. dysarthria present. Fund of knowledge is abnormal. Cranial Nerves CN III, IV, : Normal lids and orbits bilaterally. Pupils equal round and reactive to light bilaterally. CN VII: Right: There is no facial weakness. Left: There is no facial weakness. CN VIII: Right: Hearing is decreased. Left: Hearing is decreased. CN XI: Shoulder shrug strength is normal. CN XII: Tongue midline without atrophy or fasciculations. Sensory Light touch is normal in upper and lower extremities. Gait Normal casual, toe, heel and tandem gait. Motor Examination RUE Strength deltoid, biceps, triceps, wrist extensors, wrist extensors, wrist flexor, exterior interior specialist strength 5/5. LUE Strength deltoid, biceps, triceps, wrist extensors, wrist extensors, wrist flexor, exterior interior specialist strength 5/5. RLE Strength illopsoas, quadriceps, tibialis anterior, and gastrocnemius strength 5/5. LLE Strength illopsoas, quadriceps, tibialis anterior, and gastrocnemius strength 5/5. Tone Normal tone x4 extremities. Reflexes: RUE biceps reflex 2, LUE biceps reflex 2, RLE knee reflex 2, LLE knee reflex 2, Assessment and Plan Diagnoses and all orders for this visit: Transient alteration of awareness Seizure disorder (CMS/HCC) - levETIRAcetam (Keppra) 750 MG tablet; Take 1 tablet (750 mg) by mouth in the morning and 1 tablet(750 mg) before bedtime. Patient was seen at [facility] 06/22/2022 for seizure like activity and while admitted, she was found to have acute hypoxic and hypercapnic respiratory failure and bacterial pneumonia. She has history of Down Sydnrome, DM, hypothyroidism, pseudoseizures, AVMs, JANET, and constipation. Head CT was nonacute. TSH and B12 were within normal limits. Routine EEG revealed moderately slow background rhythm, consistent with encephalopathy and was somewhat limited due to near continuous extraneous or motion or muscle related artifact. 2 Hour EEG 08/15/2022 was normal. She was started on Keppra and continues on this. Keppra level 10/26/2022 was 17. She was thought to have a combination of epileptic and nonepileptic events. Ambulatory EEG 01/02/2023 was normal. She did have a few episodes reportedly during this EEG without EEG correlate, which is consistent with noneplieptic events. She was recently at the ER for seizure like episodes. She presented 01/15/24 after breakthrough event and was found to have UTI.Keppra was increased as she is prone to UTIs and she has been doing well with adjusted dose. She has completed antibiotics. Plan: 1.ER records reviewed. 2. Continue Keppra 750mg PO BID for seizure prevention 3. Continue with seizure precautions. Her caregiver verbalized understanding. Follow up in 4-6 months documented in this [facility]12-04-2024 History of Present illness Narrative* Alize Arrington NP - 01/28/2024 4:30 PM EST Patients nurse contacted the office for refills of the patients Keppra 750 mg BID. I will send one month. The patient is scheduled to see Dr. Stack on Friday. documented in this [facility]12-02-2024 Telephone encounter Note* Telephone Encounter - ROCK CELESTE - 01/26/2024 2:46 PM EST PATIENTS VOCATIONAL NURSE CALLED REQUESTING A REFILL OF [id number] Miscellaneous Notes* Telephone Encounter - ROCK CELESTE - 01/26/2024 2:46 PM EST PATIENTS VOCATIONAL NURSE CALLED REQUESTING A REFILL OF LOTRISONE CREAM BE SENT TO [facility] documented in this [facility]11-21-2024 Radiology Diagnostic study [facility] [place] [address] CT Scan Report Signed Patient: Kelsey Graves MR#: [id number] : 1980 Acct:[id number] Age/Sex: 43 / F ADM Date: 4 Loc: ER Room: Type: [facility] ER Attending Dr: Copies to: Nat Gutierrez MD~ Ordering Provider: Nat Gutierrez MD Date of Service: 01/15/24 CT/CT cervical spine wo con: ams, seizure ([id number]) CT/CT head/brain wo con: ams, seizure Unenhanced head CT TECHNIQUE: Contiguous axial imaging of the head. The CT exam was performed usingone or more the following dose reduction techniques: Automated exposure control,adjustment of the MA and/or Kv according to patient size, or use of the iterative reconstruction technique. COMPARISON: 05/30/2023 HISTORY: Seizure. Headache. VENTRICLES: Within normal limits ATROPHY: None BRAIN PARENCHYMA: Adequate orellana-white matter differentiation identified. HEMORRHAGE: None HERNIATION: No mass effect or herniation INFARCTION: No recent vascular distribution infarction is seen. EXTRA-AXIAL FLUID COLLECTIONS None MIDBRAIN: Unremarkable ISIAH: Unremarkable MEDULLA: Unremarkable SINUSES: Unremarkable ORBITS: Grossly unremarkable MASTOIDS: Unremarkable BONY STRUCTURES Intact ADDITIONAL FINDINGS: CT/CT head/brain wo con IMPRESSION: No acute findings. CT Cervical Spine withoutcontrast TECHNIQUE: Axial imaging with 2-D and 3-D reconstruction. The CT exam was performed using one or more the following dose reduction techniques: Automated exposure control, adjustment of the MA and/or Kv according to patient size, or use of the iterative reconstruction technique. COMPARISON: None HISTORY: As above POST SURGERY CHANGES: None BONY ALIGNMENT: Straightening BONY SPINAL CANAL: Patent central bony canal FRACTURE: None BONY LESIONS: None SOFT TISSUES: Unremarkable DEGENERATIVE CHANGES: Spondylosis greatest at the C6-7 level. Mild degenerativelisthesis LUNG APICES: Unremarkable ADDITIONAL FINDINGS: IMPRESSION: No acute process Impression dictated by: Pardeep Montoya M.D.01/15/2024 9:45 AM Dictation Location: [place] [address] Transcribed By: [facility] 01/15/2445 Dictated By: Pardeep Montoya DO 01/15/24 0934 Signed By: 01/15/24 0945 [facility]10-22-2024 History of Present illness Narrative * Raymon Pepper DPM - 2023 3:00 PM EDT Patient: Kelsey Graves : 1980 PCP: Delgado Valdez MD SUBJECTIVE This is a 42 y.o. female that presents today with a CC of elongated, thick nails. Pt states nails have been elongated and thick for many years and cause pain with ambulation in shoegear. Pt has tried previous treatment with minimal relief. Pt presents today for nail care and treatment. Presents today with care worker She is DM2 Patient also presents today for follow-up of tinea pedis infection and states that they have not been using Lotrisone cream and powders with minimal improvement. 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[facility]) 11/08/2008 Heart disease History of heart valve replacement HTN (hypertension) ([facility]) Hypersomnia 12/08/2008 Hypothyroidism ([facility]) Obesity Obesity (BMI 30.0-34.9) OM (onychomycosis) Psychiatric pseudoseizure ([facility]) 04/2016 Scoliosis Seizures ([facility]) 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 Snoring Tinea pedis Toe pain, bilateral Transient alteration of awareness 07/02/2016 Medications: Current Outpatient Medications: acetaminophen (Tylenol) 325 MG tablet, every 6 (six) hours., Disp: , Rfl: albuterol HFA 90 mcg/act inhaler, every 4 (four) hours., Disp: , Rfl: ammonium lactate (Lac-Hydrin) 12 % lotion, apply 1 application to affected area twice a day for 30 days, Disp: , Rfl: Blood Glucose Monitoring Suppl (True Metrix Meter) w/Device kit, USE TO TEST BLOOD SUGAR, Disp: , Rfl: cephalexin (Keflex) 500 MG capsule, Sig: TAKE 1 CAPSULE BY MOUTH ON FRIDAY, FRIDAY AND FRIDAY TOPREVENT UTI (Patient not taking: Reported on 08/12/2023), Disp: 60 capsule, Rfl: 0 cetirizine (ZyrTEC) 10 MG tablet, Take 1 tablet (10 mg) by mouth in the morning., Disp: 90 tablet, Rfl: 1 clonazePAM (KlonoPIN) 0.5 MG tablet, every 12 (twelve) hours., Disp: , Rfl: clotrimazole-betamethasone (Lotrisone) cream, Apply 1 application to affected area topically in themorning and 1 application before bedtime., Disp: 45 g, Rfl: 0 Cranberry-Vitamin C-Vitamin E (Cranberry Plus Vitamin C) 4200-20-3 MG-MG-UNIT capsule, 1 capsule 1 (one) time each day at the same time., Disp: , Rfl: fluticasone (Flonase) 50 MCG/ACT nasal spray, Administer 1 spray into each nostril 1 (one) time each day at the same time, Disp: 16 g, Rfl: 5 Glucose Blood (GLUCOMETER ELITE TEST ), 1 (one) time each day at the same time., Disp: , Rfl: glucose blood (True Metrix Blood Glucose Test) test strip, 1 each by Other route Daily, Disp: 300 each, Rfl: 0 hydrOXYzine HCl (Atarax) 50 MG tablet, Take 1 tablet (50 mg) by mouth as needed at bedtime for anxiety, Disp: 90 tablet, Rfl: 0 levETIRAcetam (Keppra) 500 MG tablet, take 1 tablet orally twice a day, Disp: 90 tablet, Rfl: 0 levothyroxine (Synthroid, Levoxyl) 75 MCG tablet, Take 1 tablet (75 mcg) by mouth in the morning. Take before meals., Disp: 90 tablet, Rfl: 1 magnesium hydroxide (Milk of Magnesia) 400 MG/5ML suspension, Take 15 mL by mouth, Disp: , Rfl: metFORMIN XR (Glucophage-XR) 500 MG 24 hr tablet, Take 1 tablet (500 mg) by mouth 1 (one) time eachday at the same time, Disp: 90 tablet, Rfl: 1 nystatin (Mycostatin) cream, Apply 1 application topically every 12 (twelve) hours, Disp: , Rfl: Pediatric Multiple Vitamins (CHEWABLE CRISELDA CHILDRENS PO), 1 (one) time each day at the same time., Disp: , Rfl: polycarbophil (Fiber-Lax) 625 MG tablet, Take 1 tablet (625 mg) by mouth Daily, Disp: 90 tablet, Rfl: 1 Probiotic Product (PROBIOTIC PO), 1 (one) time each day at the same time., Disp: , Rfl: sertraline (Zoloft) 100 MG tablet, Take 1 tablet (100 mg) by mouth Daily, Disp: 90 tablet, Rfl: 0 sertraline (Zoloft) 25 MG tablet, Take 1 tablet (25 mg) by mouth Daily, Disp: 90 tablet, Rfl: 0 simvastatin (Zocor) 20 MG tablet, Take 1 tablet (20 mg) by mouth 1 (one) time each day at the same time, Disp: 90 tablet, Rfl: 1 traZODone (Desyrel) 50 MG tablet, Take 1 tablet (50 mg) by mouth as needed at bedtime for sleep, Disp: 30 tablet, Rfl: 2 TRUEplus Lancets 33G misc, 1 Lancet by In Vitro route Daily Use one Lancet daily, E11.9, Disp: 100 each, Rfl: 0 Social History: Social History Socioeconomic History Marital status: Unmarried Spouse name: Not on file Number of children: Not on file Years of education: Not on file Highest education level: Not on file Occupational History Not on file Tobacco Use Smoking status: Never Smokeless tobacco: Never Vaping Use Vaping status: Unknown Substance and Sexual Activity Alcohol use: Yes Drug use: Never Sexual activity: Defer Partners: [...] through 10. Positive hair growth b/l feet. Notable Diminished Dry and peeling skin with slight maceration to interdigital spaces bilateral feet with peeling and dry skin noted to interdigital spaces VASC: Positive palpable pedal pulses bilaterally NEURO: Gross sensation intact to bilateral feet ORTHO: Positive pain on palpation to nails 1 through 10 ASSESSMENT 1. Tinea pedis, unspecified laterality 2. Type 2 diabetes mellitus without complication, unspecified whether penitentiary insulin use ([facility]) 3. Pain due to onychomycosis of toenails of both feet PLAN Discussed proper foot care with patient today. Continue creams to feet daily of antifungals Debride nails in length and thickness digits 1 through 10 Patient education concerning tinea infection. Discussed use of antifungal cream and foot powders aswell as good foot hygiene and prevention measures. Raymon Pepper DPM documented in this encounter[facility] [id number] Progress note Author Aryan Lindsay [facility] June 18, 2023 5:05pmNote Date/TimeApril 2023 5:05pm[address] [address] Progress Note Signed Patient: Kelsey Graves MR#: [id number] : 1980 Acct:[id number] Age/Sex: 42 / F Adm Date: 4 Loc: Room: [address] [place] [address] Type: ADM IN Attending Dr: Hugh Craft MD Copies to: ~ Date of Service: 06/18/2023 Progress Narrative Note PROGRESS NOTE Progress Note: Patient was discussed on morning rounds and is clinically stable. She is on herbaseline nasal cannula oxygen with biggest concern being noncompliant with positive airway pressure therapy at night. She previously had gone a year without admission with some component of volume overload. Palliative care medicine assistance in this case is appreciated with plan for enrollment in hospice through her care home. I have no recommendations and would prefer she goes back to her care home on her supplemental oxygen and positive airway pressure therapy. We will be available as needed but will not roundon the patient formally. Documented By: Aryan Lindsay MD 4 1703 Signed By: <Electronically signed by MD Aryan Lindsay> 06/18/23 1705 [facility] Work Phone: 1(193) 930-714704-24-2024 Progress note Author Albino Morelos [facility] June 18, 2023 2:18pmNote Date/TimeApril 2023 2:[address] [address] Palliative Care Progress Note Signed Patient: Kelsey Graves MR#: [id number] : 1980 Acct:[id number] Age/Sex: 42 / F Adm Date: 4 Loc: Room: 1A2233-5 Type: ADM IN Attending Dr: Hugh Craft MD Copies to: ~ Date of Service: 06/18/2023 Subjective Subjective HPI: Ms. Graves is a 42-year-old patient with history of trisomy 21, type 2 diabetes mellitus, previous open heart surgery as a child, obstructive sleep apnea on CPAP, chronic respiratory failure on 4 L ofO2 at home, BiPAP at night with 5 L of oxygen, seizure disorder, hypothyroidism, hypertension. [facility] was [facility] down at [facility] and was sleepy and weak. She was found to be hypoxic in the ED, satting 70% on 4 L of O2. Chest x-ray showed predominantly bibasilar airspace opacities. CTA was performed which showed no evidence of PE. It did show minimal to mild patchy central and lower lung zone airspace opacity, possibly pulmonary edema, pneumonitisand/or atelectasis and mild subpleural early honeycombing in the midto upper lung zones. Viral panel was negative. ABG showed pH of 7.359, pCO2 of62.2, pO2 of 80.4, bicarb of 31.2. She was transferred to [facility] to the ICU for further care. She was on high flow oxygen alternating with BiPAP here in the ICU. She is currently on 6 L of O2 via nasalcannula alternating with BiPAP. She has had problems tolerating the BiPAP, wanting it to come off. Today is hospitalization day #5. Pulmonary/critical care was consulted. She is receiving Lasix 20 mg IV twice daily. PT and OTconsulted. Echocardiogram did show EF of 50 to 55% with elevated left atrial pressure and mild mitral stenosis. Palliative medicine was consulted to help with goals of care and with advance care planning. Patient's CODE STATUS currently is full code. Patient seen and evaluated. She is in her bed, confused. She does answer some simple questions appropriately, but does not have insight into her condition. Icalled her guardian, Cassandra, and she did come up and visit patient. We spent 30 minutes discussing goals of care and advance care planning in her room. Cassandra tells me that she has been watching after Kelsey ever since her mother [id number].She is Kelsey's legal guardian, but we do not have paperwork scanned into the [employer] computer. Kelsey lives in a care home in [place], and hashired caregivers. She tells me that Kelsey had a decent quality life over thepast many years. Cassandra would take her out walking, and they would evengo to [place] and she would ride some of the rides, including the matter horn ride. But ever since she was admitted to the hospital last year, things have been more difficult for Kelsey. She has been much more weak and has been short of breath with exertion. Has been hard for her to get out with her oxygenat 4 L/min. She is also needed more help recently with ADLs?including bathing and toileting. She tells me it was difficult at the care home to get Kelsey to wear the BiPAP regularly. She would often take it off and did not tolerate it very well. Cassandra says that her primary goal for Kelsey is to keep her comfortable so she has the best quality life. We reviewed resuscitation preferences, and after discussion Cassandra says that Kelsey would want to change her resuscitation preferences to DNR CCA without intubation. Team is hoping that Kelsey will improve and get stronger so she can go back to the care home. She is not sure if the grouphome will except her back if she is very weak and needing a lot of help with ADLs. She would like PT/OT to give recommendations to see if patient may benefit from rehab at a residential facility.Cassandra says she wants to talk this over with friends to see if they think Kelsey would do well at a residential facility for rehab. Ultimately, Cassandra thinks that Kelsey justwants to go back toher care home, where she has been living for many years. She realizes now that Kelsey will likely need a lot more help than she has in the past, and also that Kelsey is at high risk to have further complications and worsening respiratory failure in the future. She does not really think Kelsey would want to be readmitted to the hospital in the future if/when she worsens. We also discussed consideration of hospice care in the future if goalsare for comfort focused care. Cassandra was thankful for the discussion. She wantsto think about things before she makes her mind up. Will adjust CODE STATUS to DNR CCA without intubation for now and follow-up tomorrow. Please call if questions. 06/16 Patient seen and evaluated. She is sitting up at her bedside chair. O2 in place at 4 L/min?her homerate. Her guardian, Cassandra, was visiting this morning. Patient has been very focused on going home today. She tells me that she wantsto go home and she wants to go home now. Otherwise Kelsey has been playing onL-3 [employer] cell phone and watching TV. I called her guardian, Cassandra, and spent 20 minutes on the phone discussing goalsof care and advancecare planning. She says she has been thinking, and she doesnot think Kelsey would do well at a residential facility. She thinks she would just want to go home at a facility and she would not danna and would refuse to do any treatment like therapy. She is already been refusing about half of her medicines here in the hospital, and she has been agitated, just wanting to go home. Cassandra would like to try to get Kelsey back to her care home and she has been in conversations with them aboutthat. She thinks Kelsey would benefit most from focusing on comfort measures and quality life. She thinks Kelsey would prefer hospice and comfort care at home. We talked about hospice care and how it works in the home setting today on the phone. Shedmartinas not think Kelsey would want to be transported to the ER anymore, but would want to have comfort care when in the home. She requested hospice consultso she can enroll Kelsey into hospice care, with possible discharge back to the care home tomorrow. Will follow-up tomorrow. Hospice consult was placed. 06/17 Seen and evaluated. Kelsey seems to be in good spirits. Her guardian is at bedside. Plan is to discharge today with hospice home. Kelsey is happy she is going home. We reviewed hospice services today. Cassandra is meeting with hospice today at 5pm. O2 is in place at 4L/min. Cassandra requests code status be changed to DNR-CC. Exam Physical Exam Vital Signs: Temp Pulse Resp BP Pulse Ox O2 Del Method O2 Flow Rate 97.8 F 80 20 110/66 94 L Nasal Cannula 4 06/18/23 04:00 06/18/23 12:09 06/18/23 12:09 06/18/23 04:00 06/18/23 12:00 06/18/23 12:09 06/18/23 12:09 FiO2 30 06/18/23 09:23 Const General: comfortable, no acute distress and ill appearing chronically Nutritional Appearance: overweight Orientation: alert, awake and oriented to person HEENT Nose: external nose normal Eyes Eyelids: eyelids normal Conjunctivae: conjunctivae normal Sclera: sclerae normal Resp Auscultation: crackles bilaterally, diminished lung sounds bilaterally, no ralesand no wheezes Cardio Rate: regular rate Rhythm: regular rhythm GI Inspection: obesity Palpation: soft, no guarding, no masses and nontender Neuro General: patient alert and patient awake Objective Labs 06/17/23 04:17 06/17/23 04:17 Labs: Laboratory Results - last 24 hr 06/17/23 06/18/23 06/18/23 17:41 10:06 12:44 POC Glucose 221 209 286 POC Glucose Comment Glu2: cleaned meter Assessment/Plan Assessment/Plan (1) Down syndrome: Code(s): Q90.9 - Down syndrome, unspecified (2) Acute diastolic (congestive) heart failure: Code(s): I50.31 - Acute diastolic (congestive) heart failure (3) Acute respiratory failure with hypoxia and hypercapnia: Code(s): J96.01 - Acute respiratory failure with hypoxia; J96.02 - Acute respiratory failure with hypercapnia (4) Counseling regarding advance directives and goals of care: Code(s): Z71.89 - Other specified counseling Plan 06/17 Seen and evaluated. Kelsey seems to be in good spirits. Her guardian is at bedside. Plan is to discharge today with hospice home. Kelsey is happy she is going home. We reviewed hospice services today. Cassandra is meeting with hospice today at 5pm. O2 is in place at 4L/min. Cassandra requests code status be changed to DNR-CC. Documented By: Albino Morelos DO 06/18/23 1 410 Signed By: <Electronically signed by DO Albino Morelos> 06/18/23 6856 [facility] Work Phone: 1(945) 504-350204-24-2024 Progress note Author Hugh Craft [facility] June 18, 2023 6:39pmNote Date/TimeApril 2023 9:57[place] [id number] Hospitalist Progress Note Signed with Addenda Patient: Kelsey Graves MR#: [id number] : 1980 Acct:[id number] Age/Sex: 42 / F Adm Date: 4 Loc: Room: [address] [place] [address] Type: ADM IN Attending Dr: Hugh Craft MD Copies to: ~ ADDENDUM1 Additional Diagnosis: Aspiration Pneumonia Addendum Documented By: Lyndsey Henson RN 06/18/231215 Addendum Signed By: <Electronically signed by Lyndsey Henson RN> 06/18/23 1216 <Electronically signed by Hugh Craft MD> 06/18/23 1839 Date of Service: 06/18/2023 Subjective Subjective Narrative: No new symptoms. The patient slept with the BiPAP machine last night. No feveror chills. No other symptoms Exam Physical Exam Vital Signs: Temp Pulse Resp BP Pulse Ox O2 Del Method O2 Flow Rate 97.8 F 71 18 110/66 94 L BiPAP 4 06/18/23 04:00 06/18/23 04:00 06/18/23 04:00 06/18/23 04:00 06/18/23 04:00 06/18/23 04:00 06/18/23 02:50 FiO2 35 06/18/23 02:50 Narrative: Patient is lying in bed. BiPAP on. Arousable. Able to nod her head. Chest exam reveals fine rhonchi. Heart is regular. Abdomen soft. Lower extremities with trace pitting edema. Objective Lab Results 06/17/23 04:17 06/17/23 04:17 Meds Allergies and Active Meds Allergies diazepam Allergy (Unknown, Verified 05/06/23 21:50) Unknown Reaction Active Meds: Active Medications Generic Name Dose Route Start Last Admin Trade Name Freq PRN Reason Stop Dose Admin Acetaminophen 1,000 mg 06/11/23 21:04 06/14/23 17:34 Acetaminophen 500 Mg Tablet PO 06/10/24 21:03 1,000 mg Q6HR PRN Administration Pain Scale 1 - 3 or fever Albuterol 2.5 mg 06/11/23 21:04 Albuterol Neb 2.5 Mg/3 Ml Vial.Neb INHALATION 06/10/24 21:03 Q3H PRN Cough/Wheeze Albuterol 2.5 mg 06/15/23 12:00 06/18/23 09:35 Albuterol Neb 2.5 Mg/3 Ml Vial.Neb INHALATION 06/14/24 11:59 Not Given QID.RESP CARL Ammonium Lactate 1 applic 06/12/23 09:00 06/17/23 21:26 Ammonium Lactate 12% Lot 226 Gm Bottle TOPICAL 06/11/24 08:59 1 applic BID CARL Administration Atorvastatin Calcium 10 mg 06/12/23 21:00 06/17/23 21:26 Atorvastatin 10 Mg Tablet PO 06/11/24 20:59 10 mg QPM CARL Administration Dextrose 0 gm 06/11/23 21:10 Dextrose 50% In Water 25 Gm/50 Ml Syringe IV-PUSH 06/10/24 21:09 PRN PRN Hypoglycemia Enoxaparin Sodium 40 mg 06/12/23 10:00 06/17/23 12:06 Enoxaparin 40 Mg/0.4 Ml Syringe SUBCUT 06/11/24 09:59 40 mg DAILY@10 CARL Administration Fluticasone Propionate 1 spray 06/12/23 09:00 06/17/23 08:12 Fluticasone Propionate [place] 120 [place]/16 Gm Bottle INTRANASAL 06/11/24 08:59 Not Given DAILY CARL Furosemide 20 mg 06/16/23 08:00 06/17/23 08:12 Furosemide 20 Mg/2 Ml Vial IV-PUSH 06/15/24 07:59 20 mg DAILY.8A CARL Administration Glucose 0 gm 06/11/23 21:10 Dextrose 40% Gel 15 Gm Tube PO 06/10/24 21:09 PRN PRN Hypoglycemia Guaifenesin 1,200 mg 06/12/23 09:00 06/17/23 21:26 Guaifenesin 600 Mg Tab.Er.12h PO 06/11/24 08:59 1,200 mg BID CARL Administration Hydroxyzine Pamoate 50 mg 06/12/23 22:00 06/17/23 21:26 Hydroxyzine Pamoate 50 Mg Capsule PO 06/11/24 21:59 50 mg HS CARL Administration Insulin Aspart 0 units 06/11/23 22:00 06/17/23 21:26 Insulin Aspart 300 Units/3 Ml Insuln.Pen SUBCUT 06/10/24 21:59 Not Given TID.WM.HS CARL Protocol Lactulose 30 gm 06/12/23 09:00 06/17/23 21:26 Lactulose 20 Gm/30 Ml Udc PO 06/11/24 08:59 Not Given BID CARL Levetiracetam 500 mg 06/11/23 22:10 06/17/23 21:26 Levetiracetam 500 Mg Tablet PO 06/10/24 22:09 500 mg BID CARL Administration Levothyroxine Sodium 75 mcg 06/12/23 06:30 06/18/23 05:48 Levothyroxine 75 Mcg Tablet PO 06/11/24 06:29 Not Given DAILY@0630 CARL Loratadine 10 mg 06/12/23 09:00 06/17/23 08:12 Loratadine 10 Mg Tablet PO 06/11/24 08:59 10 mg DAILY CARL Administration Lorazepam 0.5 mg 06/17/23 19:46 Lorazepam 2 Mg/Ml Vial IV-PUSH 12/14/23 19:45 Q3H PRN Agitation Magnesium Hydroxide 15 ml 06/11/23 22:05 Magnesium Hydroxide Susp 30 Ml Udc PO 06/10/24 22:04 BID PRN constipation Methylprednisolone Sodium Succinate 40 mg 06/17/23 13:45 06/17/23 15:14 Methylprednisolone Sod Succ/Pf 40 Mg/Ml (1ml) Vial IV-PUSH 06/16/24 13:44 40 mg Q12HR CARL Administration Nystatin 1 applic 06/11/23 22:00 06/17/23 21:26 Nystatin 100,000 Unit/Gram Powder 15 Gm Bottle TOPICAL 06/10/24 21:59 1 applic TID CARL Administration Ondansetron HCl 4 mg 06/11/23 21:04 Ondansetron 4 Mg/2 Ml Vial IV-PUSH 06/10/24 21:03 Q6H PRN Nausea And Vomiting Sennosides 2 tab 06/14/23 22:00 06/17/23 21:26 Sennosides 8.6 Mg Tablet PO 06/13/24 21:59 2 tab QHS CARL Administration Sertraline HCl 125 mg 06/12/23 09:00 06/17/23 08:12 Sertraline 50 Mg Tablet PO 06/11/24 08:59 125 mg DAILY CARL Administration Sodium Chloride 0 ml 06/11/23 22:00 06/18/23 05:48 Sodium Chloride 0.9 % 10 Ml Syringe IV-PUSH 06/10/24 21:59 10 ml QSHIFT CARL Administration Sodium Chloride 10 ml 06/17/23 19:46 Sodium Chloride 0.9 % 10 Ml Vial.Pf INJECTION 06/16/24 19:45 Q4H PRN Ativan dilution A&P - Hospitalist Assessment/Plan (1) Acute on chronic respiratory failure with hypoxia and hypercapnia: (2) CHF (congestive heart failure): (3) Obstructive sleep apnea: (4) UTI (urinary tract infection): (5) Diabetes: (6) Hypothyroid: (7) History of seizure: Plan 1. Acute on chronic respiratory failure with hypoxia and hypercapnia -Patient wears nightly BiPAP at home and is on chronic 4 L oxygen nasal cannula daily -Maintain compliance with BiPAP is much as possible -CT chest showed groundglass airspace opacities -Continue management per pulmonology recommendations. -Palliative care was consulted CODE STATUS changed to DNR CCA without intubation -Guardian requested comfort care on hospice enrollment. 2. Diastolic congestive heart failure -History of unknown open heart surgery as a child - - -most likely repair of both atrial septal defect and found irregular septal defect -Echocardiogram with preserved ejection fraction at 55% 3. Obstructive sleep apnea -Patient on home BiPAP nightly 4. Urinary tract infection, failed outpatient treatment with cephalexin -Completed course of treatment 5. Diabetes -Continue Accu-Chek with sliding scale coverage -Hold home metformin 6. History of seizure, no active seizure activities -Continue home Keppra, seizure precautions 7. Dysphagia -Soft dental diet while sitting upright per ST recommendations Other chronic conditions -Continue home Vistaril, Zoloft -Hypothyroidism: Continue Synthroid -HLD: Continue statin CODE STATUS: DNR CCA without intubation DVT prophylaxis: Lovenox Documented By: Hugh Craft MD 06/18/23 0956 Signed By: <Electronically signed by Hugh Craft MD> 06/18/23 0957 [facility] Work Phone: 1(185) 325-121104-23-2024 Progress note Author Aryan Lindsay [facility] June 17, 2023 6:21pmNote Date/TimeApril 2023 11:[address] [address] Pulmonology Progress Note Signed Patient: Kelsey Graves MR#: [id number] : 1980 Acct:[id number] Age/Sex: 42 / F Adm Date: 4 Loc: Room: [address] [place] [address] Type: ADM IN Attending Dr: Hugh Craft MD Copies to: ~ Date of Service: 06/17/2023 Subjective Subjective Narrative: Ms. Graves is a 42 year old female with past medical history of Down syndrome, hypothyroidism, JANET with nocturnal CPAP, pseudoseizures, and history of open heart surgery as a child who was admitted for acute on chronic hypercapnic respiratory failure. This morning the patient is adamant about going home. No overnight events. She is resting in bed comfortably. There are points during the exam that she pretended to be asleep and did not respond to me. Exam Physical Exam Vital Signs: Temp Pulse Resp BP Pulse Ox O2 Del Method O2 Flow Rate 98.1 F 80 18 108/53 L 95 Nasal Cannula 4 06/16/23 20:00 06/17/23 08:44 06/17/23 08:44 06/17/23 06:00 06/17/23 06:00 06/17/23 08:00 06/17/23 08:00 FiO2 35 06/17/23 01:39 Narrative: Const General: Mostly cooperative,in no acute distress HEENT Normal oropharyngeal mucosa without any ulcers or exudates Eyes: Conjunctiva normal Pulmonary Auscultation: clear to auscultation , mildly diminished breath sounds bilaterally Cardiovascular Rate: normal rate Rhythm: regular rhythm Heart Sounds: S1 normal, S2 normal and no murmurs GI Inspection: non-distended, obese Palpation: soft, not firm and nontender. No rigidity or rebound. Deferred Neuro General: alert, awake and oriented x3. No obvious new focal deficit Musculoskeletal: normal range of motion Extrem General: no cyanosis, no pitting edema in bilateral extremities Const General: cooperative Nutritional Appearance: obese Orientation: alert and awake HEENT Head: normal to inspection Ears: hearing grossly normal bilaterally and external ears normal Nose: external nose normal Face and sinus: normal facial exam Eyes Eyelids: eyelids normal Neck Neck: normal visual inspection Chest Chest palpation & inspection: normal inspection of the chest Resp Effort & Inspection: normal respiratory effort Auscultation: clear to auscultation bilaterally, diminished lung sounds, no rales, no rhonchi and no wheezes Cardio Rate: regular rate Rhythm: regular rhythm Heart Sounds: S1 normal, S2 normal and no murmurs GI Inspection: normal to inspection Palpation: soft and nontender General: deferred Skin General: no rashes or lesions noted (Warm and dry) Extrem General: no pedal edema Objective Intake and Output I&O - Last 24 Hours: Intake & Output 06/16/23 06/17/23 06/17/23 23:59 07:59 15:59 Intake Total 1060 / 1210 240 / 240 Balance 1060 / 1210 240 / 240 Weight 81 kg Labs 06/17/23 04:17 06/17/23 04:17 Assessment/Plan Assessment/Plan (1) Acute on chronic respiratory failure with hypoxia and hypercapnia: (2) Obstructive sleep apnea: (3) UTI (urinary tract infection): (4) Pneumonitis: Plan Hospital day #5 for acute on chronic hypercapnic respiratory failure doing much better today. We will have her on nasal cannula throughout the day and BiPAP at night, similarto her home regimen She has been receiving Lasix 20 mg IV twice daily Continue empiric IV antibiotics for a total of 7 days, she is on Rocephin with astop date of 06/16/2023, patient's white blood cell count has continued to trend downward Continue DVT/GI prophylaxis Maintain blood glucose between 140-180 Head of the bed elevated Speech evaluation recommended a swallow study which was obtained today. Results are pending. Chest CT redemonstrates airspace opacities in the lungs bilaterally which is present a year prior. Continue albuterol nebs q 6 hours Continue hypertonic saline q 6 hours PEP therapy Physical therapy Patient and her caregiver have been working with palliative care on goals of care Case discussed and patient seen on rounds in conjunction with student Dr. Haywood. Patient was interviewed and examined. Vital signs and labs were reviewed. Exam is as noted above and patient again reiterates that she very muchwants to go home. I agree with the note above. Patient appears to be a pproaching her baseline and remains very focused on going home. She is becoming less cooperative with care here. Appreciate palliative care medicine'swork with patient guardian. Continue diuresis as renal function and hemodynamics permit with no evidence of worsening CO2/bicarbonate retention off acetazolamide. Continue supportive care with reported eventual plan for hospiceconsult. Documented By: rAyan Lindsay MD 4 [id number] Signed By: <Electronically signed by MD Aryan Lindsay> 06/17/23 1821 [facility] Work Phone: [phone]) 937-845504-23-2024 Progress note Author Albinoric Morelos [facility] June 17, 2023 3:02pmNote Date/TimeApril 2023 3:[place] [address] Palliative Care Progress Note Signed Patient: Kelsey Graves MR#: [id number] : 1980 Acct:[id number] Age/Sex: 42 / F Adm Date: 4 Loc: Room: [address] [place] [address] Type: ADM IN Attending Dr: Hugh Craft MD Copies to: ~ Date of Service: 06/17/2023 Subjective Subjective HPI: Ms. Graves is a 42-year-old patient with history of trisomy 21, type 2 diabetes mellitus, previous open heart surgery as a child, obstructive sleep apnea on CPAP, chronic respiratory failure on 4 L ofO2 at home, BiPAP at night with 5 L of oxygen, seizure disorder, hypothyroidism, hypertension. [facility] was [facility] down at home and was sleepy and weak. She was found to be hypoxic in the ED, satting 70% on 4 L of O2. Chest x-ray showed predominantly bibasilar airspace opacities. CTA was performed which showed no evidence of PE. It did show minimal to mild patchy central and lower lung zone airspace opacity, possibly pulmonary edema, pneumonitisand/or atelectasis and mild subpleural early honeycombing in the midto upper lung zones. Viral panel was negative. ABG showed pH of 7.359, pCO2 of62.2, pO2 of 80.4, bicarb of 31.2. She was transferred to [facility] to the ICU for further care. She was on high flow oxygen alternating with BiPAP here in the ICU. She is currently on 6 L of O2 via nasalcannula alternating with BiPAP. She has had problems tolerating the BiPAP, wanting it to come off. Today is hospitalization day #5. Pulmonary/critical care was consulted. She is receiving Lasix 20 mg IV twice daily. PT and OTconsulted. Echocardiogram did show EF of 50 to 55% with elevated left atrial pressure and mild mitral stenosis. Palliative medicine was consulted to help with goals of care and with advance care planning. Patient's CODE STATUS currently is full code. Patient seen and evaluated. She is in her bed, confused. She does answer some simple questions appropriately, but does not have insight into her condition. Icalled her guardian, Cassandra, and she did come up and visit patient. We spent 30 minutes discussing goals of care and advance care planning in her room. Cassandra tells me that she has been watching after Kelsey ever since her mother [id number].She is Kelsey's legal guardian, but we do not have paperwork scanned into the [employer] computer. Kelsey lives in a care home in [place], and hashired caregivers. She tells me that Kelsey had a decent quality life over thepast many years. Cassandra would take her out walking, and they would evengo to [place] and she would ride some of the rides, including the matter horn ride. But ever since she was admitted to the hospital last year, things have been more difficult for Kelsey. She has been much more weak and has been short of breath with exertion. Has been hard for her to get out with her oxygenat 4 L/min. She is also needed more help recently with ADLs?including bathing and toileting. She tells me it was difficult at the care home to get Kelsey to wear the BiPAP regularly. She would often take it off and did not tolerate it very well. Cassandra says that her primary goal for Kelsey is to keep her comfortable so she has the best quality life. We reviewed resuscitation preferences, and after discussion Cassandra says that Kelsey would want to change her resuscitation preferences to DNR CCA without intubation. Team is hoping that Kelsey will improve and get stronger so she can go back to the care home. She is not sure if the grouphome will except her back if she is very weak and needing a lot of help with ADLs. She would like PT/OT to give recommendations to see if patient may benefit from rehab at a residential facility.Cassandra says she wants to talk this over with friends to see if they think Kelsey would do well at a residential facility for rehab. Ultimately, Cassandra thinks that Kelsey justwants to go back toher care home, where she has been living for many years. She realizes now that Kelsey will likely need a lot more help than she has in the past, and also that Kelsey is at high risk to have further complications and worsening respiratory failure in the future. She does not really think Kelsey would want to be readmitted to the hospital in the future if/when she worsens. We also discussed consideration of hospice care in the future if goalsare for comfort focused care. Cassandra was thankful for the discussion. She wantsto think about things before she makes her mind up. Will adjust CODE STATUS to DNR CCA without intubation for now and follow-up tomorrow. Please call if questions. 06/16 Patient seen and evaluated. She is sitting up at her bedside chair. O2 in place at 4 L/min?her homerate. Her guardian, Cassandra, was visiting this morning. Patient has been very focused on going home today. She tells me that she wantsto go home and she wants to go home now. Otherwise Kelsey has been playing onL-3 [employer] cell phone and watching TV. I called her guardian, Cassandra, and spent 20 minutes on the phone discussing goalsof care and advancecare planning. She says she has been thinking, and she doesnot think Kelsey would do well at a residential facility. She thinks she would just want to go home at a facility and she would not danna and would refuse to do any treatment like therapy. She is already been refusing about half of her medicines here in the hospital, and she has been agitated, just wanting to go home. Cassandra would like to try to get Kelsey back to her care home and she has been in conversations with them aboutthat. She thinks Kelsey would benefit most from focusing on comfort measures and quality life. She thinks Kelsey would prefer hospice and comfort care at home. We talked about hospice care and how it works in the home setting today on the phone. Shedoes not think Kelsey would want to be transported to the ER anymore, but would want to have comfort care when in the home. She requested hospice consultso she can enroll Kelsey into hospice care, with possible discharge back to the care home tomorrow. Will follow-up tomorrow. Hospice consult was placed. Exam Physical Exam Vital Signs: Temp Pulse Resp BP Pulse Ox O2 Del Method O2 Flow Rate 97.8 F 79 22 119/58 L 98 Nasal Cannula 4 06/17/23 12:00 06/17/23 12:00 06/17/23 12:00 06/17/23 12:00 06/17/23 12:00 06/17/23 12:00 06/17/23 12:00 FiO2 35 06/17/23 01:39 Const General: comfortable, no acute distress and ill appearing chronically Nutritional Appearance: overweight Orientation: alert, awake and oriented to person HEENT Nose: external nose normal Eyes Eyelids: eyelids normal Conjunctivae: conjunctivae normal Sclera: sclerae normal Resp Auscultation: crackles bilaterally, diminished lung sounds bilaterally, no ralesand no wheezes Cardio Rate: regular rate Rhythm: regular rhythm GI Inspection: obesity Palpation: soft, no guarding, no masses and nontender Neuro General: patient alert and patient awake Objective Labs 06/17/23 04:17 06/17/23 04:17 Labs: Laboratory Results - last 24 hr 06/17/23 06/17/23 04:17 12:06 Corrected WBC 9.3 Uncorrected WBC Count 9.3 RBC 4.16 Hgb 12.7 Hct 39.5 MCV 94.9 MCH 30.6 MCHC 32.2 RDW 17.7 H Plt Count 265 MPV 9.9 Neut % (Auto) 73.2 Lymph % (Auto) 13.5 [place] % (Auto) 10.1 Eos % (Auto) 2.1 Baso % (Auto) 1.1 Nucleat RBC Rel Count 0.1 Neut # (Auto) 6.8 Lymph # (Auto) 1.3 [place] # (Auto) 0.9 H Eos # (Auto) 0.2 Baso # (Auto) 0.1 PHA Creatinine Clear 90.65 Sodium 138 Potassium 3.9 Chloride 100 Carbon Dioxide 31.1 H Anion Gap 10.8 BUN 20 Creatinine 0.78 Est GFR (CKD-EPI) > 60.0 Glucose 200 H POC Glucose 198 Calcium 9.2 Total Bilirubin 0.3 Direct Bilirubin 0.00 L Indirect Bilirubin 0.3 AST 19 ALT 50 Alkaline Phosphatase 68 Total Protein 7.5 Albumin 3.4 L Globulin 4.1 Albumin/Globulin Ratio 0.8 Assessment/Plan Assessment/Plan (1) Down syndrome: Code(s): Q90.9 - Down syndrome, unspecified (2) Acute diastolic (congestive) heart failure: Code(s): I50.31 - Acute diastolic (congestive) heart failure (3) Acute respiratory failure with hypoxia and hypercapnia: Code(s): J96.01 - Acute respiratory failure with hypoxia; J96.02 - Acute respiratory failure with hypercapnia (4) Counseling regarding advance directives and goals of care: Code(s): Z71.89 - Other specified counseling Plan 06/16 Patient seen and evaluated. She is sitting up at her bedside chair. O2 in place at 4 L/min?her homerate. Her guardian, Cassandra, was visiting this morning. Patient has been very focused on going home today. She tells me that she wantsto go home and she wants to go home now. Otherwise Kelsey has been playing onher cell phone and watching TV. I called her guardian, Cassandra, and spent 20 minutes on the phone discussing goalsof care and advancecare planning. She says she has been thinking, and she doesnot think Kelsey would do well at a residential facility. She thinks she would just want to go home at a facility and she would not danna and would refuse to do any treatment like therapy. She is already been refusing about half of her medicines here in the hospital, and she has been agitated, just wanting to go home. Cassandra would like to try to get Kelsey back to her care home and she has been in conversations with them aboutthat. She thinks Kelsey would benefit most from focusing on comfort measures and quality life. She thinks Kelsey would prefer hospice and comfort care at home. We talked about hospice care and how it works in the home setting today on the phone. Shedoes not think Kelsey would want to be transported to the ER anymore, but would want to have comfort care when in the home. She requested hospice consultso she can enroll Kelsey into hospice care, with possible discharge back to the care home tomorrow. Will follow-up tomorrow. Hospice consult was placed. Documented By: Albino Morelos DO 06/17/23 1 458 Signed By: <Electronically signed by DO Albino Morelos> 06/17/23 1502 [facility] Work Phone: 1(560) 107-914104-23-2024 Progress note Author Hugh Craft [facility] June 17, 2023 1:31pmNote Date/TimeApril 2023 9:25[place] [address] Hospitalist Progress Note Signed Patient: Kelsey Graves MR#: [id number] : 1980 Acct:[id number] Age/Sex: 42 / F Adm Date: 4 Loc: Room: [address] [place] [address] Type: ADM IN Attending Dr: Hugh Craft MD Copies to: ~ Date of Service: 06/17/2023 Subjective Subjective Narrative: Patient was seen and examined this morning. She had a modified barium swallow yesterday and does not dental soft diet. Patient is currently on 4 L via nasal cannula. She is awake and alert, pleasant,and talkative. Patient kept repeating that she wants to go home. She denies any concerns or complaints. Palliative care was consulted yesterday and spoke with her guardian. Her code status was changed toDNR CCA without intubation. There is concern the patient will be allowed back to her care home. Exam Physical Exam Vital Signs: Temp Pulse Resp BP Pulse Ox O2 Del Method O2 Flow Rate 98.1 F 80 18 108/53 L 95 Nasal Cannula 4 06/16/23 20:00 06/17/23 08:44 06/17/23 08:44 06/17/23 06:00 06/17/23 06:00 06/17/23 08:00 06/17/23 08:00 FiO2 35 06/17/23 01:39 Narrative: General: Awake, alert, pleasant, obese Head: Atraumatic, normocephalic EENT: conjunctivae clear. No scleral icterus. CV: Regular rate and rhythm. No murmurs, rubs, or gallops Respiratory: Clear to auscultation, slightly diminished sounds. 4 L via NC Abdominal: Soft, nondistended, nontender normoactive bowel sounds. Extremities: No cyanosis, clubbing. No calf tenderness. Trace pitting edema bilateral extremities Neuro: Awake, alert. Hard of hearing Objective Lab Results 06/17/23 04:17 06/17/23 04:17 Meds Allergies and Active Meds Allergies diazepam Allergy (Unknown, Verified 05/06/23 21:50) Unknown Reaction Active Meds: Active Medications Generic Name Dose Route Start Last Admin Trade Name Freq PRN Reason Stop Dose Admin Acetaminophen 1,000 mg 06/11/23 21:04 06/14/23 17:34 Acetaminophen 500 Mg Tablet PO 06/10/24 21:03 1,000 mg Q6HR PRN Administration Pain Scale 1 - 3 or fever Albuterol 2.5 mg 06/11/23 21:04 Albuterol Neb 2.5 Mg/3 Ml Vial.Neb INHALATION 06/10/24 21:03 Q3H PRN Cough/Wheeze Albuterol 2.5 mg 06/15/23 12:00 06/17/23 08:41 Albuterol Neb 2.5 Mg/3 Ml Vial.Neb INHALATION 06/14/24 11:59 2.5 mg QID.RESP CARL Administration Ammonium Lactate 1 applic 06/12/23 09:00 06/17/23 08:12 Ammonium Lactate 12% Lot 226 Gm Bottle TOPICAL 06/11/24 08:59 1 applic BID CARL Administration Atorvastatin Calcium 10 mg 06/12/23 21:00 06/16/23 21:24 Atorvastatin 10 Mg Tablet PO 06/11/24 20:59 Not Given QPM CARL Dextrose 0 gm 06/11/23 21:10 Dextrose 50% In Water 25 Gm/50 Ml Syringe IV-PUSH 06/10/24 21:09 PRN PRN Hypoglycemia Enoxaparin Sodium 40 mg 06/12/23 10:00 06/16/23 09:59 Enoxaparin 40 Mg/0.4 Ml Syringe SUBCUT 06/11/24 09:59 40 mg DAILY@10 CARL Administration Fluticasone Propionate 1 spray 06/12/23 09:00 06/17/23 08:12 Fluticasone Propionate [place] 120 [place]/16 Gm Bottle INTRANASAL 06/11/24 08:59 Not Given DAILY CARL Furosemide 20 mg 06/16/23 08:00 06/17/23 08:12 Furosemide 20 Mg/2 Ml Vial IV-PUSH 06/15/24 07:59 20 mg DAILY.8A CARL Administration Glucose 0 gm 06/11/23 21:10 Dextrose 40% Gel 15 Gm Tube PO 06/10/24 21:09 PRN PRN Hypoglycemia Guaifenesin 1,200 mg 06/12/23 09:00 06/17/23 08:12 Guaifenesin 600 Mg Tab.Er.12h PO 06/11/24 08:59 1,200 mg BID CARL Administration Hydroxyzine Pamoate 50 mg 06/12/23 22:00 06/16/23 21:22 Hydroxyzine Pamoate 50 Mg Capsule PO 06/11/24 21:59 50 mg HS CARL Administration Ceftriaxone Sodium 1 gm in 50 mls @ 100 mls/hr 06/15/23 21:30 06/16/23 22:00 Rocephin IV 06/17/23 21:59 Infused Q24H CARL Infusion Insulin Aspart 0 units 06/11/23 22:00 06/17/23 08:12 Insulin Aspart 300 Units/3 Ml Insuln.Pen SUBCUT 06/10/24 21:59 Not Given TID.WM.HS CARL Protocol Lactulose 30 gm 06/12/23 09:00 06/17/23 08:13 Lactulose 20 Gm/30 Ml Udc PO 06/11/24 08:59 Not Given BID CARL Levetiracetam 500 mg 06/11/23 22:10 06/17/23 08:12 Levetiracetam 500 Mg Tablet PO 06/10/24 22:09 500 mg BID CARL Administration Levothyroxine Sodium 75 mcg 06/12/23 06:30 06/17/23 06:18 Levothyroxine 75 Mcg Tablet PO 06/11/24 06:29 75 mcg DAILY@0630 CARL Administration Loratadine 10 mg 06/12/23 09:00 06/17/23 08:12 Loratadine 10 Mg Tablet PO 06/11/24 08:59 10 mg DAILY CARL Administration Magnesium Hydroxide 15 ml 06/11/23 22:05 Magnesium Hydroxide Susp 30 Ml Udc PO 06/10/24 22:04 BID PRN constipation Nystatin 1 applic 06/11/23 22:00 06/17/23 08:13 Nystatin 100,000 Unit/Gram Powder 15 Gm Bottle TOPICAL 06/10/24 21:59 1 applic TID CARL Administration Ondansetron HCl 4 mg 06/11/23 21:04 Ondansetron 4 Mg/2 Ml Vial IV-PUSH 06/10/24 21:03 Q6H PRN Nausea And Vomiting Sennosides 2 tab 06/14/23 22:00 06/16/23 21:24 Sennosides 8.6 Mg Tablet PO 06/13/24 21:59 Not Given QHS CARL Sertraline HCl 125 mg 06/12/23 09:00 06/17/23 08:12 Sertraline 50 Mg Tablet PO 06/11/24 08:59 125 mg DAILY CARL Administration Sodium Chloride 0 ml 06/11/23 22:00 06/17/23 06:18 Sodium Chloride 0.9 % 10 Ml Syringe IV-PUSH 06/10/24 21:59 10 ml QSHIFT CARL Administration A&P - Hospitalist Assessment/Plan (1) Acute on chronic respiratory failure with hypoxia and hypercapnia: (2) CHF (congestive heart failure): (3) Obstructive sleep apnea: (4) UTI (urinary tract infection): (5) Diabetes: (6) Hypothyroid: (7) History of seizure: Plan 1. Acute on chronic respiratory failure with hypoxia and hypercapnia -Patient wears nightly BiPAP at home and is on chronic 4 L oxygen nasal cannula daily -Maintain compliance with BiPAP is much as possible -CT chest showed groundglass airspace opacities -Continue management per pulmonology recommendations. -Palliative care was consulted CODE STATUS changed to DNR CCA without intubation 2. Diastolic congestive heart failure -History of unknown open heart surgery as a child - - -most likely repair of both atrial septal defect and found irregular septal defect -Echocardiogram with preserved ejection fraction at 55% 3. Obstructive sleep apnea -Patient on home BiPAP nightly 4. Urinary tract infection, failed outpatient treatment with cephalexin -Completed course of treatment 5. Diabetes -Continue Accu-Chek with sliding scale coverage -Hold home metformin 6. History of seizure, no active seizure activities -Continue home Keppra, seizure precautions 7. Dysphagia -Soft dental diet while sitting upright per ST recommendations Other chronic conditions -Continue home Vistaril, Zoloft -Hypothyroidism: Continue Synthroid -HLD: Continue statin CODE STATUS: DNR CCA without intubation DVT prophylaxis: Lovenox Documented By: Hugh Craft MD 06/17/23 0908 Signed By: <Electronically signed by Hugh Craft MD> 06/17/23 1331 <Electronically signed by DO VALERIE Weber> 06/17/23 1152 [facility] Work Phone: 1(568) 174-619304-22-2024 Progress note Author Aryan Lindsay [facility] June 16, 2023 3:31pmNote Date/TimeApril 2023 1:[place] [address] Pulmonology Progress Note Signed Patient: Kelsey Graves MR#: [id number] : 1980 Acct:[id number] Age/Sex: 42 / F Adm Date: 4 Loc: Room: [address] [place] [address] Type: ADM IN Attending Dr: Hugh Craft MD Copies to: ~ Date of Service: 06/16/2023 Subjective Subjective Narrative: Ms. Graves is a 42 year old female with past medical history of Down syndrome, hypothyroidism, JANET with nocturnal CPAP, pseudoseizures, and history of open heart surgery as a child who was admitted for acute on chronic hypercapnic respiratory failure. Today she is requesting to go home. No overnightevents. She was sitting up and alert in bed today. She is tolerating the HFNC well. Exam Physical Exam Vital Signs: Temp Pulse Resp BP Pulse Ox O2 Del Method O2 Flow Rate 98 F 81 18 124/51 L 96 Nasal Cannula 4 06/16/23 09:00 06/16/23 09:00 06/16/23 09:00 06/16/23 09:00 06/16/23 09:00 06/16/23 09:00 06/16/23 09:00 FiO2 35 06/16/23 08:40 Narrative: Const General: cooperative, sitting up in bed with the high flow nasal cannula on, in no acute distress HEENT Normal oropharyngeal mucosa without any ulcers or exudates Eyes: Conjunctiva normal Pulmonary Auscultation: clear to auscultation , mild crackles bilaterally, minimal expiratory wheezes bilaterally Cardiovascular Rate: normal rate Rhythm: regular rhythm Heart Sounds: S1 normal, S2 normal and no murmurs GI Inspection: non-distended, obese Palpation: soft, not firm and nontender. No rigidity or rebound. Deferred Neuro General: alert, awake and oriented x3. No obvious new focal deficit Musculoskeletal: normal range of motion Extrem General: no cyanosis, no pitting edema in bilateral extremities Const General: cooperative Nutritional Appearance: obese Orientation: alert and awake (though drowsy at time of my visit) HEENT Head: normal to inspection Ears: hearing grossly normal bilaterally and external ears normal Nose: external nose normal Face and sinus: normal facial exam Eyes Eyelids: eyelids normal Neck Neck: normal visual inspection Chest Chest palpation & inspection: normal inspection of the chest Resp Effort & Inspection: normal respiratory effort Auscultation: clear to auscultation bilaterally, diminished lung sounds, no rales, no rhonchi and no wheezes Cardio Rate: regular rate Rhythm: regular rhythm Heart Sounds: S1 normal, S2 normal and no murmurs GI Inspection: normal to inspection Palpation: soft and nontender General: deferred Skin General: no rashes or lesions noted (Warm and dry) Extrem General: no pedal edema Objective Intake and Output I&O - Last 24 Hours: Intake & Output 06/15/23 06/16/23 06/16/23 23:59 07:59 15:59 Intake Total 300 / 400 150 / 150 Balance 300 / 400 150 / 150 Weight 83 kg Labs 06/16/23 04:17 06/16/23 04:17 Imaging and Cardiology Chest x-ray: Status: image reviewed by me Additional comments: Date of Service: 06/15/23 XR/XR chest 1V portable: Resp failure PORTABLE AP ERECT CHEST 0910 hours CLINICAL HISTORY: Respiratory failure COMPARISON: 06/12/2023 There is shallow inspiration. The cardiac and mediastinal contours are similar. There are continued parenchymal changes at the lower lungs, potentially minimally improved. No sizable eff usion or pneumothorax is seen. The bony structures are intact. XR/XR chest 1V portable IMPRESSION: IMPROVING PARENCHYMAL CHANGES. Assessment/Plan Assessment/Plan (1) Acute on chronic respiratory failure with hypoxia and hypercapnia: (2) Obstructive sleep apnea: (3) UTI (urinary tract infection): (4) Pneumonitis: Plan Hospital day #4 for acute on chronic hypercapnic respiratory failure doing much better today. Continue noninvasive positive pressure ventilation/AVAPS 4 hours on/4 hours off and high flow nasalcannula in between She has been receiving Lasix 20 mg IV twice daily Continue empiric IV antibiotics for a total of 7 days, she is on Rocephin with astop date of 06/16/2023, patient had a improvement in her white blood cell count at 10.1 from 12.8 Continue DVT/GI prophylaxis Maintain blood glucose between 140-180 Head of the bed elevated Speech evaluation recommended a swallow study which was obtained today. Results are pending. Continue albuterol nebs q 6 hours Continue hypertonic saline q 6 hours PEP therapy Physical therapy Patient has a palliative care consult placed Case discussed and patient seen on rounds in conjunction with student Dr. Haywood. Patient was interviewed and examined. Vital signs and labs were reviewed. Exam is notable for diminished breath sounds without wheeze nor rhonchi. Cardiovascular exam is regular. Abdomen is obese but soft. Extremities reveal no edema. I agree with the note above. Patient has known chronic respiratory failure andis chronically on BiPAP at her care home thoughher compliance is of some question. Patient could be candidate for nocturnal ventilator though patient appears to do fairly well as long as she compliant with her BiPAP. Prior CT scan of the thorax of June 23, 2022 during prior hospitalization revealed groundglass opacity but no clear evidence of interstitial lung disease. Patient has benefited from diuresis with slight improvement in her infiltrates on chest x-ray with repeat CT scan of the thorax ordered per the hospitalist service which we will follow-up upon to determine ifthere is clearly development of fibrotic changes. Patient's exam is not clearlyindicative of fibrosis. Continue compliance with noninvasive positive pressure ventilation is of paramount importance to preventing recurrent respiratory failure. Continue diuresis as renal function and hemodynamics permits. Documented By: Aryan Lindsay MD 4 1037 Signed By: <Electronically signed by MD Aryan Lindsay> 06/16/23 153 [facility] Work Phone: 1(999) 278-739804-22-2024 Consult note Author Albino Morelos [facility] June 16, 2023 2:43pmNote Date/TimeApril 2023 11:[place] [id number] Palliative Care Consult Note Signed Patient: Kelsey Graves MR#: [id number] : 1980 Acct:[id number] Age/Sex: 42 / F Adm Date: 4 Loc: Room: [address] [place] [address] Type: ADM IN Attending Dr: Hugh Craft MD Copies to: MD Albino Barriga Jr, DO Rafik Massouh, MD~ HPI Data of Consult Date of Consult: 06/16/2023 Requesting Physician: Hugh Craft MD Primary Care Provider: Delgado Valdez MD Consult Narrative Reason for Consult: Advance care planning, goals of care HPI: Ms. Graves is a 42-year-old patient with history of trisomy 21, type 2 diabetes mellitus, previous open heart surgery as a child, obstructive sleep apnea on CPAP, chronic respiratory failure on 4 L ofO2 at home, BiPAP at night with 5 L of oxygen, seizure disorder, hypothyroidism, hypertension. Patient presented [facility] after she was falling down at home and was sleepy and weak. She was found to be hypoxic in the ED, satting 70% on 4 L of O2. Chest x-ray showed predominantly bibasilar airspace opacities. CTA was performed which showed no evidence of PE. It did show minimal to mild patchy central and lower lung zone airspace opacity, possibly pulmonary edema, pneumonitisand/or atelectasis and mild subpleural early honeycombing in the midto upper lung zones. Viral panel was negative. ABG showed pH of 7.359, pCO2 of62.2, pO2 of 80.4, bicarb of 31.2. She was transferred to [facility] to the ICU for further care. She was on high flow oxygen alternating with BiPAP here in the ICU. She is currently on 6 L of O2 via nasalcannula alternating with BiPAP. She has had problems tolerating the BiPAP, wanting it to come off. Today is hospitalization day #5. Pulmonary/critical care was consulted. She is receiving Lasix 20 mg IV twice daily. PT and OTconsulted. Echocardiogram did show EF of 50 to 55% with elevated left atrial pressure and mild mitral stenosis. Palliative medicine was consulted to help with goals of care and with advance care planning. Patient's CODE STATUS currently is full code. Patient seen and evaluated. She is in her bed, confused. She does answer some simple questions appropriately, but does not have insight into her condition. Icalled her guardian, Cassandra, and she did come up and visit patient. We spent 30 minutes discussing goals of care and advance care planning in her room. Cassandra tells me that she has been watching after Kelsey ever since her mother [id number].She is Kelsey's legal guardian, but we do not have paperwork scanned into the [employer] computer. Kelsey lives in a care home in [place], and hashired caregivers. She tells me that Kelsey had a decent quality life over thepast many years. Cassandra would take her out walking, and they would evengo to [place] and she would ride some of the rides, including the matter horn ride. But ever since she was admitted to the hospital last year, things have been more difficult for Kelsey. She has been much more weak and has been short of breath with exertion. Has been hard for her to get out with her oxygenat 4 L/min. She is also needed more help recently with ADLs?including bathing and toileting. She tells me it was difficult at the care home to get Kelsey to wear the BiPAP regularly. She would often take it off and did not tolerate it very well. Cassandra says that her primary goal for Kelsey is to keep her comfortable so she has the best quality life. We reviewed resuscitation preferences, and after discussion Cassandra says that Kelsey would want to change her resuscitation preferences to DNR CCA without intubation. Team is hoping that Kelsey will improve and get stronger so she can go back to the care home. She is not sure if the grouphome will except her back if she is very weak and needing a lot of help with ADLs. She would like PT/OT to give recommendations to see if patient may benefit from rehab at a residential facility.Cassandra says she wants to talk this over with friends to see if they think Kelsey would do well at a residential facility for rehab. Ultimately, [facility]. She realizes now that Kelsey will likely need a lot more help than she has in the past, and also that Kelsey is at high risk to have further complications and worsening respiratory failure in the future. She does not really think Kelsey would want to be readmitted to the hospital in the future if/when she worsens. We also discussed consideration of hospice care in the future if goalsare for comfort focused care. Cassandra was thankful for the discussion. She wantsto think about things before she makes her mind up. Will adjust CODE STATUS to DNR CCA without intubation for now and follow-up tomorrow. Please call if questions. Review of Systems Review of Systems Unobtainable due to mental condition [facility] Medical History (Updated 06/16/23 @ 14:34 by Albino Morelos DO) Obstructive sleep apnea BMI 39.0-39.9,adult (HFpEF) heart failure with preserved ejection fraction Chronic respiratory failure with hypoxia and hypercapnia Diabetes Seizure Hypothyroid HTN (hypertension) Down syndrome Surgical History (Updated 06/11/23 @ 21:37 by Gloria Barrera APRN) History of open heart surgery as a child Family History (Updated 02/03/23 @ 14:00 by Provider Conversion) Father Mother Social History Smoking Status: Never smoker Substance Use Type: None Allergies & Medications Medications and Allergies Allergies diazepam Allergy (Unknown, Verified 05/06/23 21:50) Unknown Reaction Home Medications Lactobacillus acidoph-L.bulgaricus 1 million cell tablet (Floranex) 1 tab PO DAILY 12/28/18 [History Confirmed 06/11/23] acetaminophen 325 mg capsule 650 mg PO Q6H PRN Pain 12/28/18 [History Confirmed 06/11/23] cetirizine 10 mg tablet 10 mg PO DAILY 12/28/18 [History Confirmed 06/11/23] cholecalciferol (vitamin D3) 50 mcg (2,000 unit) capsule (Vitamin D3) 2,000 unitPO DAILY 12/28/18 [History Confirmed 06/11/23] lactulose 10 gram/15 mL oral solution 30 ml PO BID 12/28/18 [History Confirmed 06/11/23] levothyroxine 75 mcg tablet 75 mcg PO DAILY 12/28/18 [History Confirmed 06/11/23] multivitamin (One-A-Day Essential tablet) 1 tab PO DAILY 12/28/18 [History Confirmed 06/11/23] fluticasone propionate 50 mcg/actuation nasal spray,suspension 1 spray intranasal DAILY 12/17/20 [History Confirmed 06/11/23] sertraline 100 mg tablet 125 mg PO DAILY 12/17/20 [History Confirmed 06/11/23] ammonium lactate 12 % lotion 1 applic topical BID 06/22/22 [History Confirmed 06/11/23] levetiracetam 500 mg tablet 500 mg PO BID #30 tabs 06/28/22 [Rx Confirmed 06/11/23] Cranberry Plus Vitamin C 1 tab PO DAILY 03/13/23 [History Confirmed 06/11/23] cephalexin 500 mg capsule 500 mg PO 3XW 03/13/23 [History Confirmed 06/11/23] albuterol sulfate 90 mcg/actuation aerosol inhaler (ProAir HFA) 1 puff inhalation Q4H PRN shortnessof breath 04/05/23 [History Confirmed 06/11/23] guaifenesin 600 mg tablet, extended release 12 hr 1,200 mg PO BID PRN [id number]/10/24 [History Confirmed 06/11/23] hydroxyzine HCl 50 mg tablet 50 mg PO HS 04/05/23 [History Confirmed 06/11/23] metformin 500 mg tablet 500 mg PO QPM 04/05/23 [History Confirmed 06/11/23] simvastatin 20 mg tablet 20 mg PO QPM 04/05/23 [History Confirmed 06/11/23] trazodone 150 mg tablet 150 mg PO HS PRN sleep 04/05/23 [History Confirmed 06/11/23] cephalexin 500 mg capsule 500 mg PO TID 7 days #21 caps 04/15/23 [Rx Confirmed 06/11/23] cyclobenzaprine 10 mg tablet 10 mg PO TID PRN Muscle Spasm #10 tabs 05/06/23 [Rx Confirmed 06/11/23] ibuprofen 800 mg tablet 800 mg PO TID PRN Pain #20 tabs 05/06/23 [Rx Confirmed 06/11/23] Lactobacillus acidoph-L.bulgaricus 1 million cell tablet (Floranex) 1 tab PO DAILY 06/11/23 [History Confirmed 06/11/23] calcium polycarbophil 625 mg tablet (Fiber Therapy (ca polycarbophil)) 625 mg PODAILY 06/11/23 [History Confirmed 06/11/23] calcium polycarbophil 625 mg tablet (Fiber-Lax) 625 mg PO QAM 06/11/23 [History Confirmed 06/11/23] magnesium hydroxide 400 mg/5 mL oral suspension (Milk of Magnesia) 15 ml PO BID PRN constipation 06/11/23 [History Confirmed 06/11/23] magnesium hydroxide 400 mg/5 mL oral suspension (Milk of Magnesia) 15 ml PO BID PRN constipation 06/11/23 [History Confirmed 06/11/23] nystatin 100,000 unit/gram topical cream 1 applic topical BID PRN rash 06/11/23 [History Confirmed 06/11/23] Active Medications Acetaminophen (Acetaminophen 500 Mg Tablet) 1,000 mg PO Q6HR PRN PRN Reason: Pain Scale 1 - 3 or fever Stop: 06/10/24 21:03 Last Admin: 06/14/23 17:34 Dose: 1,000 mg Albuterol (Albuterol Neb 2.5 Mg/3 Ml Vial.Neb) 2.5 mg INHALATION Q3H PRN PRN Reason: Cough/Wheeze Stop: 06/10/24 21:03 Albuterol (Albuterol Neb 2.5 Mg/3 Ml Vial.Neb) 2.5 mg INHALATION QID.RESP CARL Stop: 06/14/24 11:59 Last Admin: 06/16/23 08:43 Dose: 2.5 mg Ammonium Lactate (Ammonium Lactate 12% Lot 226 Gm Bottle) 1 applic TOPICAL BID CARL Stop: 06/11/24 08:59 Last Admin: 06/16/23 09:59 Dose: 1 applic Atorvastatin Calcium (Atorvastatin 10 Mg Tablet) 10 mg PO QPM CARL Stop: 06/11/24 20:59 Last Admin: 06/15/23 21:28 Dose: Not Given Dextrose (Dextrose 50% In Water 25 Gm/50 Ml Syringe) 0 gm IV-PUSH PRN PRN PRN Reason: Hypoglycemia Stop: 06/10/24 21:09 Enoxaparin Sodium (Enoxaparin 40 Mg/0.4 Ml Syringe) 40 mg SUBCUT DAILY@10 [facility] Stop: 06/11/24 09:59 Last Admin: 06/16/23 09:59 Dose: 40 mg Fluticasone Propionate (Fluticasone Propionate [place] 120 [place]/16 Gm Bottle) 1 spray INTRANASAL DAILY CARL Stop: 06/11/24 08:59 Last Admin: 06/16/23 09:59 Dose: 1 spray Furosemide (Furosemide 20 Mg/2 Ml Vial) 20 mg IV-PUSH DAILY.8A CARL Stop: 06/15/24 07:59 Last Admin: 06/16/23 09:59 Dose: 20 mg Glucose (Dextrose 40% Gel 15 Gm Tube) 0 gm PO PRN PRN PRN Reason: Hypoglycemia Stop: 06/10/24 21:09 Guaifenesin (Guaifenesin 600 Mg Tab.Er.12h) 1,200 mg PO BID [facility] Stop: 06/11/24 08:59 Last Admin: 06/16/23 09:58 Dose: 1,200 mg Hydroxyzine Pamoate (Hydroxyzine Pamoate 50 Mg Capsule) 50 mg PO [facility] Stop: 06/11/24 21:59 Last Admin: 06/15/23 21:28 Dose: Not Given Ceftriaxone Sodium (Rocephin) 1 gm in 50 mls @ 100 mls/hr IV Q24H [facility] Stop: 06/17/23 21:59 Last Admin: 06/15/23 21:29 Dose: 100 mls/hr Insulin Aspart (Insulin Aspart 300 Units/3 Ml Insuln.Pen) 0 units SUBCUT TID.[facility]; Protocol Stop: 06/10/24 21:59 Last Admin: 06/16/23 09:59 Dose: Not Given Lactulose (Lactulose 20 Gm/30 Ml Udc) 30 gm PO BID [facility] Stop: 06/11/24 08:59 Last Admin: 06/16/23 09:59 Dose: 30 gm Levetiracetam (Levetiracetam 500 Mg Tablet) 500 mg PO BID [facility] Stop: 06/10/24 22:09 Last Admin: 06/16/23 09:58 Dose: 500 mg Levothyroxine Sodium (Levothyroxine 75 Mcg Tablet) 75 mcg PO DAILY@0630 [facility] Stop: 06/11/24 06:29 Last Admin: 06/16/23 06:15 Dose: 75 mcg Loratadine (Loratadine 10 Mg Tablet) 10 mg PO DAILY CARL Stop: 06/11/24 08:59 Last Admin: 06/16/23 09:58 Dose: 10 mg Magnesium Hydroxide (Magnesium Hydroxide Susp 30 Ml Udc) 15 ml PO BID PRN PRN Reason: constipation Stop: 06/10/24 22:04 Nystatin (Nystatin 100,000 Unit/Gram Powder 15 Gm Bottle) 1 applic TOPICAL TID CARL Stop: 06/10/24 21:59 Last Admin: 06/16/23 09:59 Dose: 1 applic Ondansetron HCl (Ondansetron 4 Mg/2 Ml Vial) 4 mg IV-PUSH Q6H PRN PRN Reason: Nausea And Vomiting Stop: 06/10/24 21:03 Sennosides (Sennosides 8.6 Mg Tablet) 2 tab PO QHS CARL Stop: 06/13/24 21:59 Last Admin: 06/15/23 21:29 Dose: Not Given Sertraline HCl (Sertraline 50 Mg Tablet) 125 mg PO DAILY [facility] Stop: 06/11/24 08:59 Last Admin: 06/16/23 09:58 Dose: 125 mg Sodium Chloride (Sodium Chloride 0.9 % 10 Ml Syringe) 0 ml IV-PUSH QSHIFT [facility] Stop: 06/10/24 21:59 Last Admin: 06/16/23 06:15 Dose: 10 ml Sterile Water (Water For Injection,Sterile 10 Ml Vial) 5 ml INJECTION PRN PRN PRN Reason: Reconstitute acetaZOLAMIDE Stop: 06/11/24 15:39 Last Admin: 06/15/23 08:40 Dose: 5 ml Exam Physical Exam Vital Signs: Temp Pulse Resp BP Pulse Ox O2 Del Method O2 Flow Rate 98 F 81 18 124/51 L 96 Nasal Cannula 4 06/16/23 09:00 06/16/23 09:00 06/16/23 09:00 06/16/23 09:00 06/16/23 09:00 06/16/23 09:00 06/16/23 09:00 FiO2 35 06/16/23 08:40 Const General: comfortable, no acute distress and ill appearing chronically Nutritional Appearance: overweight Orientation: alert, awake and oriented to person HEENT Nose: external nose normal Eyes Eyelids: eyelids normal Conjunctivae: conjunctivae normal Sclera: sclerae normal Resp Auscultation: crackles bilaterally, diminished lung sounds bilaterally, no ralesand no wheezes Cardio Rate: regular rate Rhythm: regular rhythm GI Inspection: obesity Palpation: soft, no guarding, no masses and nontender Neuro General: patient alert and patient awake Results - Palliative Care Labs 06/16/23 04:17 06/16/23 04:17 Labs: Laboratory Last Values Corrected WBC 10.1 X10E3/uL (3.8-11.6) 06/16/23 04:17 Uncorrected WBC Count 10.1 x10E3/uL (3.8-11.6) 06/16/23 04:17 RBC 4.19 X10E6/uL (3.60-5.00) 06/16/23 04:17 Hgb 12.8 g/dL (11.8-15.4) 06/16/23 04:17 Hct 39.5 % (34.0-46.4) 06/16/23 04:17 MCV 94.2 fl (80-100) 06/16/23 04:17 MCH 30.5 pg (24.7-34.3) 06/16/23 04:17 MCHC 32.4 g/dL (32.0-35.0) 06/16/23 04:17 RDW 17.4 % (11.9-15.3) H 06/16/23 04:17 Plt Count 246 x10E3/uL (150-450) 06/16/23 04:17 MPV 9.5 fl (6.3-10.7) 06/16/23 04:17 Neut % (Auto) 76.7 % (.) 06/16/23 04:17 Lymph % (Auto) 11.5 % (.) 06/16/23 04:17 [place] % (Auto) 9.2 % (.) 06/16/23 04:17 Eos % (Auto) 1.8 % (.) 06/16/23 04:17 Baso % (Auto) 0.8 % (.) 06/16/23 04:17 Nucleat RBC Rel Count 0.0 /100 WBC (0-0.5) 06/16/23 04:17 Neut # (Auto) 7.7 x10E3/uL (1.8-7.7) 06/16/23 04:17 Lymph # (Auto) 1.2 x10E3/uL (1.00-4.8) 06/16/23 04:17 [place] # (Auto) 0.9 x10E3/uL (0.0-0.8) H 06/16/23 04:17 Eos # (Auto) 0.2 x10E3/uL (0.0-0.45) 06/16/23 04:17 Baso # (Auto) 0.1 x10E3/uL (0.0-0.2) 06/16/23 04:17 Sample Site Right radial 06/15/23 13:50 ABG pH 7.38 (7.35-7.45) 06/15/23 13:50 ABG pCO2 61.2 mmHg (35.0-45.0) H* 06/15/23 13:50 ABG pO2 70.9 mmHg (80.0-100.0) L 06/15/23 13:50 ABG HCO3 35.0 mmol/L (23.0-29.0) H 06/15/23 13:50 ABG Total CO2 36.9 mmol/L (23.0-27.0) H 06/15/23 13:50 ABG O2 Saturation 93.9 % (95.0-100.0) L 06/15/23 13:50 ABG O2 Content 8.3 mmol/L (6.6-9.7) 06/15/23 13:50 ABG Base Excess 7.6 mmol/L (-3.0-3.0) H 06/15/23 13:50 Set Respiration Rate 12 06/13/23 06:36 O2 Delivery Device High flow 06/14/23 08:56 Liter Flow 40 L/min 06/14/23 08:56 FiO2 30% % 06/15/23 13:50 PEEP 5 cmH2O 06/13/23 06:36 CPAP 16.0 cmH2O 06/12/23 09:53 Critical Value 06/15/23 13:50 PHA Creatinine Clear 68.21 06/16/23 04:17 Sodium 137 mmol/L (136-145) 06/16/23 04:17 Potassium 3.6 mmol/L (3.5-5.1) 06/16/23 04:17 Chloride 98 mmol/L (98-107) 06/16/23 04:17 Carbon Dioxide 30.9 mmol/L (21.0-31.0) 06/16/23 04:17 Anion Gap 11.7 mEq/L (6.0-15.0) 06/16/23 04:17 BUN 23 mg/dL (7-25) 06/16/23 04:17 Creatinine 1.06 mg/dL (0.60-1.20) 06/16/23 04:17 Est GFR (CKD-EPI) > 60.0 mL/Min 06/16/23 04:17 Glucose 163 mg/dL (70-100) H 06/16/23 04:17 POC Glucose 223 mg/dl 06/15/23 22:56 POC Glucose Comment Glu2: cleaned meter 06/14/23 21:27 POC Glucose Comment Cleaned meter 06/11/23 22:11 Estimat Average Glucose 157 mg/dL 06/12/23 06:12 Hemoglobin A1c 7.1 % (4.3-5.6) H 06/12/23 06:12 Calcium 9.1 mg/dL (8.6-10.3) 06/16/23 04:17 Troponin I High Sens 98.3 pg/mL (0.0-15.0) H* 06/12/23 06:12 C-Reactive Prot, Quant 4.8 mg/dL (0.0-0.5) H 06/12/23 17:15 B-Natriuretic Peptide 53.0 pg/mL (5-100) 06/12/23 17:15 TSH 3rd Generation 1.88 uIU/mL (0.45-5.33) 06/12/23 06:12 Urine Color Yellow (Yellow) 06/12/23 18:36 Urine Appearance Clear (Clear) 06/12/23 18:36 Urine pH 6.5 (5.0-9.0) 06/12/23 18:36 Ur Specific [place] 1.013 (1.001-1.030) 06/12/23 18:36 Urine Protein Negative mg/dL (Negative) 06/12/23 18:36 Urine Glucose (UA) Normal mg/dL (Normal) 06/12/23 18:36 Urine Ketones Negative (Negative) 06/12/23 18:36 Urine Occult Blood Negative (Negative) 06/12/23 18:36 Urine Nitrite Negative (Negative) 06/12/23 18:36 Urine Bilirubin Negative (Negative) 06/12/23 18:36 Urine Urobilinogen Normal mg/dL (Normal) 06/12/23 18:36 Ur Leukocyte Esterase Negative (Negative) 06/12/23 18:36 Assessment/Plan (1) Down syndrome: Code(s): Q90.9 - Down syndrome, unspecified (2) Acute diastolic (congestive) heart failure: Code(s): I50.31 - Acute diastolic (congestive) heart failure (3) Acute respiratory failure with hypoxia and hypercapnia: Code(s): J96.01 - Acute respiratory failure with hypoxia; J96.02 - Acute respiratory failure with hypercapnia (4) Counseling regarding advance directives and goals of care: Code(s): Z71.89 - Other specified counseling Plan Patient seen and evaluated. She is in her bed, confused. She does answer some simple questions appropriately, but does not have insight into her condition. Icalled her guardian, Cassandra, and she did come up and visit patient. We spent 30 minutes discussing goals of care and advance care planning in her room. Cassandra tells me that she has been watching after Kelsey ever since her mother [id number].She is Kelsey's legal guardian, but we do not have paperwork scanned into the [employer] computer. Kelsey lives in a care home in [place], and hashired caregivers. She tells me that Kelsey had a decent quality life over thepast many years. Cassandra would take her out walking, and they would evengo to [place] and she would ride some of the rides, including the matter horn ride. But ever since she was admitted to the hospital last year, things have been more difficult for Kelsey. She has been much more weak and has been short of breath with exertion. Has been hard for her to get out with her oxygenat 4 L/min. She is also needed more help recently with ADLs?including bathing and toileting. She tells me it was difficult at the care home to get Kelsey to wear the BiPAP regularly. She would often take it off and did not tolerate it very well. Cassandra says that her primary goal for Kelsey is to keep her comfortable so she has the best quality life. We reviewed resuscitation preferences, and after discussion Cassandra says that Kelsey would want to change her resuscitation preferences to DNR CCA without intubation. Team is hoping that Kelsey will improve and get stronger so she can go back to the care home. She is not sure if the grouphome will except her back if she is very weak and needing a lot of help with ADLs. She would like PT/OT to give recommendations to see if patient may benefit from rehab at a residential facility.Cassandra says she wants to talk this over with friends to see if they think Kelsey would do well at a residential facility for rehab. Ultimately, Cassandra thinks that Kelsey justwants to go back toher care home, where she has been living for many years. She realizes now that Kelsey will likely need a lot more help than she has in the past, and also that Kelsey is at high risk to have further complications and worsening respiratory failure in the future. She does not really think Kelsey would want to be readmitted to the hospital in the future if/when she worsens. We also discussed consideration of hospice care in the future if goalsare for comfort focused care. Cassandra was thankful for the discussion. She wantsto think about things before she makes her mind up. Will adjust CODE STATUS to DNR CCA without intubation for now and follow-up tomorrow. Please call if questions. Documented By: Albino Morelos DO 06/16/23 1 134 Signed By: <Electronically signed by DO Albino Morelos> 06/16/23 1443 [facility] Work Phone: 1(658) [phone] Progress note Author Hugh Craft [facility] June 16, 2023 9:23amNote Date/TimeApril 2023 9:23[place] [id number] Hospitalist Progress Note Signed Patient: Kelsey Graves MR#: [id number] : 1980 Acct:[id number] Age/Sex: 42 / F Adm Date: 4 Loc: Room: [address] [place] [address] Type: ADM IN Attending Dr: Hugh Craft MD Copies to: ~ Date of Service: 06/16/2023 Subjective Subjective Narrative: Following up on the patient. Patient is lying in bed in ICU. She has BiPAP on. This is my first time meeting the patient. Patient is able to open her eyes. Patient is able to nod her head answering yes or no questions. No other reported issues by nursing staff Exam Physical Exam Vital Signs: Temp Pulse Resp BP Pulse Ox O2 Del Method O2 Flow Rate 98.1 F 64 18 98/54 L 96 Nasal Cannula 4 06/16/23 04:00 06/16/23 07:00 06/16/23 07:00 06/16/23 07:00 06/16/23 07:00 06/16/23 08:44 06/16/23 08:44 FiO2 35 06/16/23 07:00 Narrative: Patient is lying in bed. BiPAP on. Arousable. Able to nod her head. Chest exam reveals fine rhonchi. Heart is regular. Abdomen soft. Lower extremities with trace pitting edema. Objective Lab Results 06/16/23 04:17 06/16/23 04:17 Meds Allergies and Active Meds Allergies diazepam Allergy (Unknown, Verified 05/06/23 21:50) Unknown Reaction Active Meds: Active Medications Generic Name Dose Route Start Last Admin Trade Name Freq PRN Reason Stop Dose Admin Acetaminophen 1,000 mg 06/11/23 21:04 06/14/23 17:34 Acetaminophen 500 Mg Tablet PO 06/10/24 21:03 1,000 mg Q6HR PRN Administration Pain Scale 1 - 3 or fever Albuterol 2.5 mg 06/11/23 21:04 Albuterol Neb 2.5 Mg/3 Ml Vial.Neb INHALATION 06/10/24 21:03 Q3H PRN Cough/Wheeze Albuterol 2.5 mg 06/15/23 12:00 06/16/23 08:43 Albuterol Neb 2.5 Mg/3 Ml Vial.Neb INHALATION 06/14/24 11:59 2.5 mg QID.RESP CARL Administration Ammonium Lactate 1 applic 06/12/23 09:00 06/15/23 21:28 Ammonium Lactate 12% Lot 226 Gm Bottle TOPICAL 06/11/24 08:59 1 applic BID CARL Administration Atorvastatin Calcium 10 mg 06/12/23 21:00 06/15/23 21:28 Atorvastatin 10 Mg Tablet PO 06/11/24 20:59 Not Given QPM CARL Dextrose 0 gm 06/11/23 21:10 Dextrose 50% In Water 25 Gm/50 Ml Syringe IV-PUSH 06/10/24 21:09 PRN PRN Hypoglycemia Enoxaparin Sodium 40 mg 06/12/23 10:00 06/15/23 09:23 Enoxaparin 40 Mg/0.4 Ml Syringe SUBCUT 06/11/24 09:59 40 mg DAILY@10 CARL Administration Fluticasone Propionate 1 spray 06/12/23 09:00 06/15/23 08:53 Fluticasone Propionate [place] 120 [place]/16 Gm Bottle INTRANASAL 06/11/24 08:59 1 spray DAILY CARL Administration Furosemide 20 mg 06/16/23 08:00 Furosemide 20 Mg/2 Ml Vial IV-PUSH 06/15/24 07:59 DAILY.8A CARL Glucose 0 gm 06/11/23 21:10 Dextrose 40% Gel 15 Gm Tube PO 06/10/24 21:09 PRN PRN Hypoglycemia Guaifenesin 1,200 mg 06/12/23 09:00 06/15/23 21:28 Guaifenesin 600 Mg Tab.Er.12h PO 06/11/24 08:59 Not Given BID CARL Hydroxyzine Pamoate 50 mg 06/12/23 22:00 06/15/23 21:28 Hydroxyzine Pamoate 50 Mg Capsule PO 06/11/24 21:59 Not Given HS CARL Ceftriaxone Sodium 1 gm in 50 mls @ 100 mls/hr 06/15/23 21:30 06/15/23 21:29 Rocephin IV 06/17/23 21:59 100 mls/hr Q24H CARL Administration Insulin Aspart 0 units 06/11/23 22:00 06/15/23 22:56 Insulin Aspart 300 Units/3 Ml Insuln.Pen SUBCUT 06/10/24 21:59 2 units TID.WM.HS CARL Administration Protocol Lactulose 30 gm 06/12/23 09:00 06/15/23 21:28 Lactulose 20 Gm/30 Ml Udc PO 06/11/24 08:59 Not Given BID CARL Levetiracetam 500 mg 06/11/23 22:10 06/15/23 21:28 Levetiracetam 500 Mg Tablet PO 06/10/24 22:09 Not Given BID CARL Levothyroxine Sodium 75 mcg 06/12/23 06:30 06/16/23 06:15 Levothyroxine 75 Mcg Tablet PO 06/11/24 06:29 75 mcg DAILY@0630 CARL Administration Loratadine 10 mg 06/12/23 09:00 06/15/23 08:35 Loratadine 10 Mg Tablet PO 06/11/24 08:59 10 mg DAILY CARL Administration Magnesium Hydroxide 15 ml 06/11/23 22:05 Magnesium Hydroxide Susp 30 Ml Udc PO 06/10/24 22:04 BID PRN constipation Nystatin 1 applic 06/11/23 22:00 06/15/23 21:29 Nystatin 100,000 Unit/Gram Powder 15 Gm Bottle TOPICAL 06/10/24 21:59 1 applic TID CARL Administration Ondansetron HCl 4 mg 06/11/23 21:04 Ondansetron 4 Mg/2 Ml Vial IV-PUSH 06/10/24 21:03 Q6H PRN Nausea And Vomiting Sennosides 2 tab 06/14/23 22:00 06/15/23 21:29 Sennosides 8.6 Mg Tablet PO 06/13/24 21:59 Not Given QHS CARL Sertraline HCl 125 mg 06/12/23 09:00 06/15/23 08:35 Sertraline 50 Mg Tablet PO 06/11/24 08:59 125 mg DAILY CARL Administration Sodium Chloride 0 ml 06/11/23 22:00 06/16/23 06:15 Sodium Chloride 0.9 % 10 Ml Syringe IV-PUSH 06/10/24 21:59 10 ml QSHIFT CARL Administration Sterile Water 5 ml 06/12/23 15:40 06/15/23 08:40 Water For Injection,Sterile 10 Ml Vial INJECTION 06/11/24 15:39 5 ml PRN PRN Administration Reconstitute acetaZOLAMIDE A&P - Hospitalist Assessment/Plan (1) Acute on chronic respiratory failure with hypoxia and hypercapnia: (2) Obstructive sleep apnea: (3) UTI (urinary tract infection): (4) Diabetes: (5) Hypothyroid: (6) History of seizure: (7) Acute diastolic (congestive) heart failure: (8) HTN (hypertension): (9) BMI 39.0-39.9,adult: Plan 1. Acute on chronic respiratory failure with hypoxia and hypercapnia -Patient wears nightly BiPAP at home and is on chronic 2 L oxygen nasal cannula daily (started on oxygen about a year ago after a long hospital stay for pnuemonia.) -CXR with possible groundglass infiltrative changes -Pulmonology consulted and following. -Maintain compliance with BiPAP as much as possible. -Continue acetazolamide and/or IV Lasix per pulmonology 2. Acute Diastolic congestive heart failure -History of unknown open heart surgery as a child - - -most likely repair of both atrial septal defect and ventricular septal defect. -Echocardiogram with preserved left ventricular ejection fraction at 55% 3. Obstructive sleep apnea -Patient on home BiPAP nightly 4. Urinary tract infection, failed outpatient treatment with cephalexin -UA on 06/11 no sign of infection -Follow-up on urine culture obtained at [facility] -Has completed a full course of Ceftriaxone. Chronic conditions: -T2 DM: Sliding scale insulin, hold metformin -Seizure disorder: Continue Keppra -Continue home Vistaril, Zoloft -Hypothyroidism: Continue Synthroid -HLD: Continue statin CODE STATUS: Full code... Patient will require a palliative care visit. I thinkthat the guardian may be ready for this on Friday. DVT prophylaxis: Lovenox 40 mg sc daily 06/15: The aforementioned paragraph was documented by my colleague yesterday. Hypoxic and hypercapnic respiratory failure on BiPAP Defer further needed diagnostic and therapeutic intervention to pulmonary team. Diabetes Accu-Chek with sliding scale coverage. Dysphagia Mechanical soft and thickened liquids recommended by speech History of seizure. No seizure activities Continue Keppra. Seizure precaution Documented By: Hugh Craft MD 06/16/23919 Signed By: <Electronically signed by Hugh Craft MD> 06/16/23922 [facility] Work Phone: 1(475) 980-740204-21-2024 Progress note Author Constantino Burdick [facility] June 15, 2023 3:20pmNote Date/TimeApril 2023 3:[place] [address] Progress Note Signed Patient: Kelsey Graves MR#: [id number] : 1980 Acct:[id number] Age/Sex: 42 / F Adm Date: 4 Loc: Room: [address] [place] [address] Type: ADM IN Attending Dr: Constantino Burdick DO Copies to: ~ Date of Service: 06/15/2023 Progress Narrative Note PROGRESS NOTE Progress Note: This afternoon I had a discussion at the bedside with the patient's guardian. This guardian has known the patient for many years. Almost 15 years ago when the patient's mother the mother asked the guardian to do this role. I did discuss with the guardian that from a goals of care point of view I think it is worthwhile tostep back and look at the clinical course for this patient over the last couple years. The guardianand pointed out how a year ago after pneumonia which went on oxygen the patient's quality life wentdownhill a lot. Before going on oxygen she is to go to [place] and ride some of the gentle rides and she can go swimming and even skating at [employer]. Over the last year she has not been able to do those things. She always likes to eat food that is unhealthy for her. She does not like to wear her sleep apnea machine atthe care home and the staff at the care home can barely get her to wear it. I did tell the guardian that pulmonology felt that the patient has room for improvement if she can be compliant with the sleep apnea machine and some diuretics, most likely with ongoing care at a residential facility. So thatseems to be very optimistic. But I told the guardian that in my view Eliazar concerned that this patient will not really be able to rebound from this currentcondition. I think that she has a very grave combination of small lungs, a contribution from some (mild) interstitial lung disease, pulmonary hypertension,right heart failure, obstructive sleep apnea, and obesity hypo ventilation syndrome. These problems are all going to get worse as she gets older. I am concerned that despite all of the best medical care in the best use of BiPAP or AVAPS possible..... I am not sure that the patient will make meaningful enough improvement. With this information the guardian was tearful. The guardian did know that patients with Down syndrome can have early dementia and the guardianrecalls how her own mother did pass away from the effects of dementia. She has also noticed some progression in dementia features in this patient as well. The guardian was agreeable to talk with the palliative care team for a goals ofcare discussion. Idid give the guardian a heads up that talking about things like CODE STATUS and whether she would ever be intubated I will be part of that discussion. Documented By: Constantino Burdick DO [id number] Signed By: <Electronically signed by Constantino Burdick DO> 06/15/23 1520 [facility] Work Phone: [phone]) 514-456304-21-2024 Progress note Author Constantino Burdick [facility] June 15, 2023 1:42pmNote Date/TimeApr2023 1:42[place] [address] Hospitalist Progress Note Signed Patient: Kelsey Graves MR#: [id number] : 1980 Acct:[id number] Age/Sex: 42 / F Adm Date: 4 Loc: Room: [address] [place] [address] Type: ADM IN Attending Dr: Constantino Burdick DO Copies to: ~ Date of Service: 06/15/2023 Subjective Subjective Narrative: Today the patient was looking low but sleepy so she was put on BiPAP. When I rounded on the patient she is sleeping in bed. The BiPAP is been applied. Her guardian was here earlier but then left. I discussed the case in brief with pulmonology with Dr. Keith. Exam Physical Exam Vital Signs: Temp Pulse Resp BP Pulse Ox O2 Del Method O2 Flow Rate 98.4 F 66 17 102/57 L 94 L BiPAP 30 06/15/23 11:00 06/15/23 13:00 06/15/23 13:00 06/15/23 13:00 06/15/23 13:00 06/15/23 13:00 06/15/23 11:00 FiO2 35 06/15/23 13:00 Narrative: General: In bed, with head of bed elevated at about 50 degrees, which is perfect. BiPAP is on. Extremities: Stable edema in the legs. This actually looks a little bit better than it was last fewdays. Respiratory: Clear to auscultation anteriorly. No wheezing. Good compliance with the BiPAP. GI: Abdomen soft, normal bowel sounds to auscultation. No acute peritoneal signs. Cardiac: Denies regular rate and rhythm on the monitor. Heart sounds are distant. I do not hear anyrubs or gallops. Objective Lab Results 06/15/23 04:44 06/15/23 04:44 Meds Allergies and Active Meds Allergies diazepam Allergy (Unknown, Verified 05/06/23 21:50) Unknown Reaction Active Meds: Active Medications Generic Name Dose Route Start Last Admin Trade Name Freq PRN Reason Stop Dose Admin Acetaminophen 1,000 mg 06/11/23 21:04 06/14/23 17:34 Acetaminophen 500 Mg Tablet PO 06/10/24 21:03 1,000 mg Q6HR PRN Administration Pain Scale 1 - 3 or fever Albuterol 2.5 mg 06/11/23 21:04 Albuterol Neb 2.5 Mg/3 Ml Vial.Neb INHALATION 06/10/24 21:03 Q3H PRN Cough/Wheeze Albuterol 2.5 mg 06/15/23 12:00 Albuterol Neb 2.5 Mg/3 Ml Vial.Neb INHALATION 06/14/24 11:59 QID.RESP CARL Ammonium Lactate 1 applic 06/12/23 09:00 06/15/23 08:35 Ammonium Lactate 12% Lot 226 Gm Bottle TOPICAL 06/11/24 08:59 1 applic BID CARL Administration Atorvastatin Calcium 10 mg 06/12/23 21:00 06/14/23 21:31 Atorvastatin 10 Mg Tablet PO 06/11/24 20:59 10 mg QPM CARL Administration Dextrose 0 gm 06/11/23 21:10 Dextrose 50% In Water 25 Gm/50 Ml Syringe IV-PUSH 06/10/24 21:09 PRN PRN Hypoglycemia Enoxaparin Sodium 40 mg 06/12/23 10:00 06/15/23 09:23 Enoxaparin 40 Mg/0.4 Ml Syringe SUBCUT 06/11/24 09:59 40 mg DAILY@10 CARL Administration Fluticasone Propionate 1 spray 06/12/23 09:00 06/15/23 08:53 Fluticasone Propionate [place] 120 [place]/16 Gm Bottle INTRANASAL 06/11/24 08:59 1 spray DAILY CARL Administration Furosemide 20 mg 06/16/23 08:00 Furosemide 20 Mg/2 Ml Vial IV-PUSH 06/15/24 07:59 DAILY.8A CARL Glucose 0 gm 06/11/23 21:10 Dextrose 40% Gel 15 Gm Tube PO 06/10/24 21:09 PRN PRN Hypoglycemia Guaifenesin 1,200 mg 06/12/23 09:00 06/15/23 08:35 Guaifenesin 600 Mg Tab.Er.12h PO 06/11/24 08:59 1,200 mg BID CARL Administration Hydroxyzine Pamoate 50 mg 06/12/23 22:00 06/14/23 21:31 Hydroxyzine Pamoate 50 Mg Capsule PO 06/11/24 21:59 50 mg HS CARL Administration Ceftriaxone Sodium 1 gm in 50 mls @ 100 mls/hr 06/15/23 21:30 Rocephin IV 06/17/23 21:59 Q24H CARL Insulin Aspart 0 units 06/11/23 22:00 06/15/23 12:38 Insulin Aspart 300 Units/3 Ml Insuln.Pen SUBCUT 06/10/24 21:59 Not Given TID.WM.HS CARL Protocol Lactulose 30 gm 06/12/23 09:00 06/15/23 08:52 Lactulose 20 Gm/30 Ml Udc PO 06/11/24 08:59 Not Given BID CARL Levetiracetam 500 mg 06/11/23 22:10 06/15/23 08:35 Levetiracetam 500 Mg Tablet PO 06/10/24 22:09 500 mg BID CARL Administration Levothyroxine Sodium 75 mcg 06/12/23 06:30 06/15/23 06:24 Levothyroxine 75 Mcg Tablet PO 06/11/24 06:29 75 mcg DAILY@0630 CARL Administration Loratadine 10 mg 06/12/23 09:00 06/15/23 08:35 Loratadine 10 Mg Tablet PO 06/11/24 08:59 10 mg DAILY CARL Administration Magnesium Hydroxide 15 ml 06/11/23 22:05 Magnesium Hydroxide Susp 30 Ml Udc PO 06/10/24 22:04 BID PRN constipation Nystatin 1 applic 06/11/23 22:00 06/15/23 13:27 Nystatin 100,000 Unit/Gram Powder 15 Gm Bottle TOPICAL 06/10/24 21:59 Not Given TID CARL Ondansetron HCl 4 mg 06/11/23 21:04 Ondansetron 4 Mg/2 Ml Vial IV-PUSH 06/10/24 21:03 Q6H PRN Nausea And Vomiting Sennosides 2 tab 06/14/23 22:00 06/14/23 21:44 Sennosides 8.6 Mg Tablet PO 06/13/24 21:59 Not Given QHS CARL Sertraline HCl 125 mg 06/12/23 09:00 06/15/23 08:35 Sertraline 50 Mg Tablet PO 06/11/24 08:59 125 mg DAILY CARL Administration Sodium Chloride 0 ml 06/11/23 22:00 06/15/23 13:28 Sodium Chloride 0.9 % 10 Ml Syringe IV-PUSH 06/10/24 21:59 10 ml QSHIFT CARL Administration Sterile Water 5 ml 06/12/23 15:40 06/15/23 08:40 Water For Injection,Sterile 10 Ml Vial INJECTION 06/11/24 15:39 5 ml PRN PRN Administration Reconstitute acetaZOLAMIDE A&P - Hospitalist Assessment/Plan (1) Acute on chronic respiratory failure with hypoxia and hypercapnia: (2) Obstructive sleep apnea: (3) UTI (urinary tract infection): (4) Diabetes: (5) Hypothyroid: (6) History of seizure: (7) Acute diastolic (congestive) heart failure: (8) HTN (hypertension): (9) BMI 39.0-39.9,adult: Plan 1. Acute on chronic respiratory failure with hypoxia and hypercapnia -Patient wears nightly BiPAP at home and is on chronic 2 L oxygen nasal cannula daily (started on oxygen about a year ago after a long hospital stay for pnuemonia.) -CXR with possible groundglass infiltrative changes -Pulmonology consulted and following. -Maintain compliance with BiPAP as much as possible. -Continue acetazolamide and/or IV Lasix per pulmonology 2. Acute Diastolic congestive heart failure -History of unknown open heart surgery as a child - - -most likely repair of both atrial septal defect and ventricular septal defect. -Echocardiogram with preserved left ventricular ejection fraction at 55% 3. Obstructive sleep apnea -Patient on home BiPAP nightly 4. Urinary tract infection, failed outpatient treatment with cephalexin -UA on 06/11 no sign of infection -Follow-up on urine culture obtained at [facility] -Has completed a full course of Ceftriaxone. Chronic conditions: -T2 DM: Sliding scale insulin, hold metformin -Seizure disorder: Continue Keppra -Continue home Vistaril, Zoloft -Hypothyroidism: Continue Synthroid -HLD: Continue statin CODE STATUS: Full code... Patient will require a palliative care visit. I thinkthat the guardian may be ready for this on Friday. DVT prophylaxis: Lovenox 40 mg sc daily Documented By: Constantino Burdick DO 1338 Signed By: <Electronically signed by Constantino Burdick DO> 06/15/23 1342 [facility] Work Phone: 1(449) [phone] Progress note Author Chivo Basilio [facility] June 15, 2023 11:21amNote Date/TimeApr2023 8:55[place] [address] Pulmonology Progress Note Signed with Addenda Patient: Kelsey Graves MR#: [id number] : 1980 Acct:[id number] Age/Sex: 42 / F Adm Date: 4 Loc: Room: [address] [place] [address] Type: ADM IN Attending Dr: Constantino Burdick DO Copies to: ~ ADDENDUM1 To complete course of 7 days of ceftriaxone for possible aspiration pneumonia Lasix 20 mg IV daily Completed 3 days of acetazolamide Addendum Documented By: Chivo Basilio MD 06/15/23 1120 Addendum Signed By: <Electronically signed by Chivo Basilio MD> 06/15/23 1120 Date of Service: 06/15/2023 Subjective Subjective Narrative: No acute events overnight. Possible aspiration episode yesterday. Awake and alert, sitting up in bed and tolerating HFNC. Laboratory data and images reviewed Exam Physical Exam Vital Signs: Temp Pulse Resp BP Pulse Ox O2 Del Method O2 Flow Rate 98.4 F 75 16 100/58 L 96 BiPAP 40 06/15/23 04:00 06/15/23 08:00 06/15/23 08:00 06/15/23 08:00 06/15/23 08:00 06/15/23 08:00 06/15/23 08:00 FiO2 35 06/15/23 08:00 Narrative: General: Awake, following commands. On HFNC. HEENT: EOMi, PERRL+, oral mucosa moist Neck: Supple, trachea is midline Pulmonary: Coarse breath sounds, chest is symmetric Cardiovascular: RRR, normal heart rate, pedal edema- GI: non-distended, obese, soft, not firm and nontender. No rigidity or rebound. Neuro: Awake, following commands, no gross motor deficits Objective Intake and Output I&O - Last 24 Hours: Intake & Output 06/14/23 06/15/23 06/15/23 23:59 07:59 15:59 Intake Total 340 / 1130 100 / 100 Balance 340 / 1130 100 / 100 Weight 86.4 kg Labs 06/15/23 04:44 06/15/23 04:44 Assessment/Plan Assessment/Plan (1) Acute on chronic respiratory failure with hypoxia and hypercapnia: (2) Obstructive sleep apnea: (3) UTI (urinary tract infection): (4) Pneumonitis: Plan Acute on chronic hypercapnic respiratory failure Acute metabolic encephalopathy Acute heart failure with preserved ejection fraction Pulmonary edema JANET/OHS UTI Down syndrome Possible aspiration Continue noninvasive positive pressure ventilation/AVAPS 4 hours on/4 hours off and high flow nasalcannula in between Wean off HFNC as tolerated Net negative fluid balance Lasix 20 mg IV twice daily Assess for need of diuretics on daily basis Continue empiric IV antibiotics for a total of 7 days DVT/GI prophylaxis Maintain blood glucose between 140-180 Head of the bed elevated Aspiration precautions Speech evaluation Albuterol nebs q 6 hours Hypertonic saline q 6 hours PEP therapy Physical therapy CCT:30 minutes Documented By: Chivo Basilio MD [id number] Signed By: <Electronically signed by Chivo Basilio MD> 06/15/23 0857 [facility] Work Phone: 1(615) 169-749704-20-2024 Progress note Author Constantino Burdick [facility] June 14, 2023 12:55pmNote Date/TimeApril 2023 12:55[place] [address] Hospitalist Progress Note Signed Patient: Kelsey Graves MR#: [id number] : 1980 Acct:[id number] Age/Sex: 42 / F Adm Date: 4 Loc: Room: [address] [place] [address] Type: ADM IN Attending Dr: Constantino Burdick DO Copies to: ~ Date of Service: 06/14/2023 Subjective Subjective Narrative: This morning the patient is repeating over and over again that she wants to go home. She says I want to stop off of me. She has her bedside nurse in the room with her. It is not possible to redirect this patient. That is on the basis of her MRDD and Down syndrome. Her guardian is not at the bedside now butmay be able to come in later to help redirect her. On the bedside ICU nurse reports the patient has not moved her bowels in a couple days, but has been taking her lactulose that she does at home. The steward/stewardess second class, Dr. Keith, wants the patient to wear BiPAP every 4 hours during the daytime, and the patient only wore it for 1 hour and then would not wear it anymore today. The patient did wear her BiPAP almost all night long butit was a real struggle to get her to be compliant with the BiPAP. Exam Physical Exam Vital Signs: Temp Pulse Resp BP Pulse Ox O2 Del Method O2 Flow Rate 98.1 F 96 23 116/61 95 High Flow 40 06/14/23 10:00 06/14/23 10:53 06/14/23 10:53 06/14/23 10:00 06/14/23 10:53 06/14/23 10:00 06/14/23 11:35 FiO2 35 06/14/23 11:35 Narrative: General: Sitting up in a chair. Not able to be directed despite everyone's bestefforts. Extremities: Stable edema in the legs. This actually looks a little bit better than it was last fewdays. Respiratory: High flow nasal cannula on. This is giving her mild rhinorrhea. Her respiratory rate and respiratory effort is normal. The rest of the physical examination is not possible because the patient is not going to cooperate with me or the bedside nurse. Objective Lab Results 06/14/23 04:43 06/14/23 04:43 ABG Interpretation ABG results: 06/14/23 08:56 ABG pH 7.37 ABG pCO2 56.9 H* ABG pO2 68.1 L ABG HCO3 31.8 H ABG Total CO2 33.5 H ABG O2 Saturation 92.8 L ABG O2 Content 8.3 ABG Base Excess 4.8 H Meds Allergies and Active Meds Allergies diazepam Allergy (Unknown, Verified 05/06/23 21:50) Unknown Reaction Active Meds: Active Medications Generic Name Dose Route Start Last Admin Trade Name Freq PRN Reason Stop Dose Admin Acetaminophen 1,000 mg 06/11/23 21:04 Acetaminophen 500 Mg Tablet PO 06/10/24 21:03 Q6HR PRN Pain Scale 1 - 3 or fever Acetazolamide 250 mg 06/12/23 16:00 06/14/23 09:08 Acetazolamide 500 Mg/5 Ml Vial IV-PUSH 06/13/24 15:59 250 mg DAILY CARL Administration Albuterol 2.5 mg 06/11/23 21:04 Albuterol Neb 2.5 Mg/3 Ml Vial.Neb INHALATION 06/10/24 21:03 Q3H PRN Cough/Wheeze Ammonium Lactate 1 applic 06/12/23 09:00 06/14/23 09:11 Ammonium Lactate 12% Lot 226 Gm Bottle TOPICAL 06/11/24 08:59 1 applic BID CARL Administration Atorvastatin Calcium 10 mg 06/12/23 21:00 06/13/23 21:10 Atorvastatin 10 Mg Tablet PO 06/11/24 20:59 10 mg QPM CARL Administration Dextrose 0 gm 06/11/23 21:10 Dextrose 50% In Water 25 Gm/50 Ml Syringe IV-PUSH 06/10/24 21:09 PRN PRN Hypoglycemia Enoxaparin Sodium 40 mg 06/12/23 10:00 06/14/23 09:10 Enoxaparin 40 Mg/0.4 Ml Syringe SUBCUT 06/11/24 09:59 40 mg DAILY@10 CARL Administration Fluticasone Propionate 1 spray 06/12/23 09:00 06/14/23 09:10 Fluticasone Propionate [place] 120 [place]/16 Gm Bottle INTRANASAL 06/11/24 08:59 1 spray DAILY CARL Administration Furosemide 20 mg 06/12/23 16:00 06/14/23 09:05 Furosemide 20 Mg/2 Ml Vial IV-PUSH 06/11/24 15:59 20 mg BID@0800,1600 CARL Administration Glucose 0 gm 06/11/23 21:10 Dextrose 40% Gel 15 Gm Tube PO 06/10/24 21:09 PRN PRN Hypoglycemia Guaifenesin 1,200 mg 06/12/23 09:00 06/14/23 09:05 Guaifenesin 600 Mg Tab.Er.12h PO 06/11/24 08:59 1,200 mg BID CARL Administration Hydroxyzine Pamoate 50 mg 06/12/23 22:00 06/13/23 21:10 Hydroxyzine Pamoate 50 Mg Capsule PO 06/11/24 21:59 50 mg HS CARL Administration Ceftriaxone Sodium 1 gm in 50 mls @ 100 mls/hr 06/11/23 21:30 06/13/23 21:10 Rocephin IV 100 mls/hr Q24H CARL Administration Insulin Aspart 0 units 06/11/23 22:00 06/14/23 09:13 Insulin Aspart 300 Units/3 Ml Insuln.Pen SUBCUT 06/10/24 21:59 1 units TID.WM.HS CARL Administration Protocol Lactulose 30 gm 06/12/23 09:00 06/14/23 09:05 Lactulose 20 Gm/30 Ml Udc PO 06/11/24 08:59 30 gm BID CARL Administration Levetiracetam 500 mg 06/11/23 22:10 06/14/23 09:06 Levetiracetam 500 Mg Tablet PO 06/10/24 22:09 500 mg BID CARL Administration Levothyroxine Sodium 75 mcg 06/12/23 06:30 06/14/23 05:31 Levothyroxine 75 Mcg Tablet PO 06/11/24 06:29 75 mcg DAILY@0630 CARL Administration Loratadine 10 mg 06/12/23 09:00 06/14/23 09:05 Loratadine 10 Mg Tablet PO 06/11/24 08:59 10 mg DAILY CARL Administration Magnesium Hydroxide 15 ml 06/11/23 22:05 Magnesium Hydroxide Susp 30 Ml Udc PO 06/10/24 22:04 BID PRN constipation Nystatin 1 applic 06/11/23 22:00 04/20/24 09:11 Nystatin 100,000 Unit/Gram Powder 15 Gm Bottle TOPICAL 06/10/24 21:59 1 applic TID CARL Administration Ondansetron HCl 4 mg 06/11/23 21:04 Ondansetron 4 Mg/2 Ml Vial IV-PUSH 06/10/24 21:03 Q6H PRN Nausea And Vomiting Sertraline HCl 125 mg 06/12/23 09:00 06/14/23 09:06 Sertraline 50 Mg Tablet PO 06/11/24 08:59 125 mg DAILY CARL Administration Sodium Chloride 0 ml 06/11/23 22:00 06/14/23 05:31 Sodium Chloride 0.9 % 10 Ml Syringe IV-PUSH 06/10/24 21:59 10 ml QSHIFT CARL Administration Sterile Water 5 ml 06/12/23 15:40 06/14/23 09:14 Water For Injection,Sterile 10 Ml Vial INJECTION 06/11/24 15:39 5 ml PRN PRN Administration Reconstitute acetaZOLAMIDE A&P - Hospitalist Assessment/Plan (1) Acute on chronic respiratory failure with hypoxia and hypercapnia: (2) Obstructive sleep apnea: (3) UTI (urinary tract infection): (4) Diabetes: (5) Hypothyroid: (6) History of seizure: (7) Acute diastolic (congestive) heart failure: (8) HTN (hypertension): (9) BMI 39.0-39.9,adult: Plan 1. Acute on chronic respiratory failure with hypoxia and hypercapnia -Patient wears nightly BiPAP at home and is on chronic 4 L oxygen nasal cannula daily -CXR with possible groundglass infiltrative changes -Pulmonology consulted and following. -Maintain compliance with BiPAP as much as possible. -Patient currently off BiPAP and on high flow at 35% FiO2 -Continue acetazolamide and IV Lasix per pulmonology 2. Acute Diastolic congestive heart failure -History of unknown open heart surgery as a child - - -most likely repair of both atrial septal defect and ventricular septal defect. -Echocardiogram with preserved ejection fraction 3. Obstructive sleep apnea -Patient on home BiPAP nightly 4. Urinary tract infection, failed outpatient treatment with cephalexin -UA on 06/11 no sign of infection -Follow-up on urine culture obtained at [facility] -Continue ceftriaxone Chronic conditions -T2 DM: Sliding scale insulin, hold metformin -Seizure disorder: Continue Keppra -Continue home Vistaril, Zoloft -Hypothyroidism: Continue Synthroid -HLD: Continue statin CODE STATUS: Full code... Patient will require a palliative care visit. I thinkthat the guardian may be ready for this on Friday. DVT prophylaxis: Lovenox 40 mg sc daily +++ +++ I personally examined the patient on this day of the encounter. I reviewed the relevant history, performed the patel elements of the physical examination, and coordinated the plan of care and I confirmed the resident's medical documentation as written. - - - Constantino Burdick DO. Internal Medicine+ Hospitalist attending physician. Documented By: Constantino Burdick DO [id number] Signed By: <Electronically signed by Constantino Burdick DO> 06/14/23 1255 [facility] Work Phone: 1(943) 103-539604-20-2024 Progress note Author [facility]ivo [facility] June 14, 2023 11:29amNote Date/TimeApr2023 11:24[place] [address] Pulmonology Progress Note Signed Patient: Kelsey Graves MR#: [id number] : 1980 Acct:[id number] Age/Sex: 42 / F Adm Date: 4 Loc: Room: [address] [place] [address] Type: ADM IN Attending Dr: Constantino Burdick DO Copies to: ~ Date of Service: 06/14/2023 Subjective Subjective Narrative: No acute events overnight. Neurologic status significantly improved. She is awake, following commands. Tolerating HFNC. Laboratory data and images reviewed Exam Physical Exam Vital Signs: Temp Pulse Resp BP Pulse Ox O2 Del Method O2 Flow Rate 98.1 F 78 14 116/61 92 L High Flow 40 06/14/23 10:00 06/14/23 10:00 06/14/23 10:00 06/14/23 10:00 06/14/23 10:00 06/14/23 10:00 06/14/23 10:00 FiO2 40 06/14/23 10:00 Narrative: General: Awake, following commands. On HFNC. HEENT: EOMi, PERRL+, oral mucosa moist Neck: Supple, trachea is midline Pulmonary: Decreased breath sounds, chest is symmetric Cardiovascular: RRR, normal heart rate, pedal edema- GI: non-distended, obese, soft, not firm and nontender. No rigidity or rebound. Neuro: Awake, following commands, no gross motor deficits Objective Intake and Output I&O - Last 24 Hours: Intake & Output 06/13/23 06/14/23 06/14/23 23:59 07:59 15:59 Intake Total 200 / 800 240 / 240 Output Total 1300 / 0 Balance -1100 / -1250 240 / 240 Weight 86 kg Labs 06/14/23 04:43 06/14/23 04:43 Assessment/Plan Assessment/Plan (1) Acute on chronic respiratory failure with hypoxia and hypercapnia: (2) Obstructive sleep apnea: (3) UTI (urinary tract infection): (4) Pneumonitis: Plan Acute on chronic hypercapnic respiratory failure Acute metabolic encephalopathy Acute heart failure with preserved ejection fraction Pulmonary edema JANET/OHS UTI Down syndrome Continue noninvasive positive pressure ventilation/AVAPS 4 hours on/4 hours off and high flow nasalcannula in between Net negative fluid balance: 1 L Acetazolamide for 3 days Lasix 20 mg IV twice daily Assess for need of diuretics on daily basis Continue empiric IV antibiotics DVT/GI prophylaxis Maintain blood glucose between 140-180 Head of the bed elevated Aspiration precautions CCT:32 minutes Documented By: Chivo Basilio MD [id number] Signed By: <Electronically signed by Chivo Basilio MD> 06/14/23 1129 [facility] Work Phone: 1(122) 522-119104-19-2024 Progress note Author Constantino Burdick [facility] June 13, 2023 5:07pmNote Date/TimeApril 2023 1:13[place] [address] Hospitalist Progress Note Signed Patient: Kelsey Graves MR#: [id number] : 1980 Acct:[id number] Age/Sex: 42 / F Adm Date: 4 Loc: Room: 2P2008-4 Type: ADM IN Attending Dr: Constantino Burdick DO Copies to: ~ Date of Service: 06/13/2023 Subjective Subjective Narrative: Patient was seen and examined in ICU this morning. Patient was able to be takenoff BiPAP last nightbut did wear BiPAP throughout the night as ordered. She iscurrently on Vapotherm. Patient still appears to be slightly drowsy today but ismuch more alert than yesterday. She is able to converse. Patient was seen later in the afternoon on rounds. Her guardian, Cassandra, and a friend are present. Patient is much more awake and alert and very talkative. She denies any concerns or any pain. Exam Physical Exam Vital Signs: Temp Pulse Resp BP Pulse Ox O2 Del Method O2 Flow Rate 98.7 F 83 22 111/56 L 96 High Flow 40 06/13/23 07:00 06/13/23 11:46 06/13/23 11:46 06/13/23 11:00 06/13/23 11:46 06/13/23 11:00 06/13/23 11:46 FiO2 50 06/13/23 11:46 Narrative: General: Awake, obese, on high flow O2 Head: Atraumatic, normocephalic EENT: conjunctivae clear. No scleral icterus. CV: Regular rate and rhythm. No murmurs, rubs, or gallops Respiratory: Clear to auscultation anteriorly. No wheezes, rhonchi, rales Abdominal: Soft, nondistended, nontender normoactive bowel sounds. Extremities: No cyanosis, clubbing. No calf tenderness. Trace pitting edema bilateral extremities Neuro: Awake, alert. Hard of hearing Psych: Pleasant Objective Lab Results 06/13/23 06:22 06/13/23 06:22 ABG Interpretation ABG results: 06/13/23 06:36 ABG pH 7.33 L ABG pCO2 67.9 H* ABG pO2 44.6 L* ABG HCO3 34.8 H ABG Total CO2 36.9 H ABG O2 Saturation 76.3 L ABG O2 Content 6.5 L ABG Base Excess 6.5 H Meds Allergies and Active Meds Allergies diazepam Allergy (Unknown, Verified 05/06/23 21:50) Unknown Reaction Active Meds: Active Medications Generic Name Dose Route Start Last Admin Trade Name Freq PRN Reason Stop Dose Admin Acetaminophen 1,000 mg 06/11/23 21:04 Acetaminophen 500 Mg Tablet PO 06/10/24 21:03 Q6HR PRN Pain Scale 1 - 3 or fever Acetazolamide 250 mg 06/12/23 16:00 06/13/23 08:52 Acetazolamide 500 Mg/5 Ml Vial IV-PUSH 06/13/24 15:59 250 mg DAILY CARL Administration Albuterol 2.5 mg 06/11/23 21:04 Albuterol Neb 2.5 Mg/3 Ml Vial.Neb INHALATION 06/10/24 21:03 Q3H PRN Cough/Wheeze Ammonium Lactate 1 applic 06/12/23 09:00 06/13/23 08:57 Ammonium Lactate 12% Lot 226 Gm Bottle TOPICAL 06/11/24 08:59 1 applic BID CARL Administration Atorvastatin Calcium 10 mg 06/12/23 21:00 06/12/23 21:00 Atorvastatin 10 Mg Tablet PO 06/11/24 20:59 10 mg QPM CARL Administration Dextrose 0 gm 06/11/23 21:10 Dextrose 50% In Water 25 Gm/50 Ml Syringe IV-PUSH 06/10/24 21:09 PRN PRN Hypoglycemia Enoxaparin Sodium 40 mg 06/12/23 10:00 06/13/23 08:59 Enoxaparin 40 Mg/0.4 Ml Syringe SUBCUT 06/11/24 09:59 40 mg DAILY@10 CARL Administration Fluticasone Propionate 1 spray 06/12/23 09:00 06/13/23 08:58 Fluticasone Propionate [place] 120 [place]/16 Gm Bottle INTRANASAL 06/11/24 08:59 Not Given DAILY CARL Furosemide 20 mg 06/12/23 16:00 06/13/23 08:51 Furosemide 20 Mg/2 Ml Vial IV-PUSH 06/11/24 15:59 20 mg BID@0800,1600 CARL Administration Glucose 0 gm 06/11/23 21:10 Dextrose 40% Gel 15 Gm Tube PO 06/10/24 21:09 PRN PRN Hypoglycemia Guaifenesin 1,200 mg 06/12/23 09:00 06/13/23 08:50 Guaifenesin 600 Mg Tab.Er.12h PO 06/11/24 08:59 1,200 mg BID CARL Administration Hydroxyzine Pamoate 50 mg 06/12/23 22:00 06/12/23 21:00 Hydroxyzine Pamoate 50 Mg Capsule PO 06/11/24 21:59 50 mg HS CARL Administration Ceftriaxone Sodium 1 gm in 50 mls @ 100 mls/hr 06/11/23 21:30 06/12/23 21:19 Rocephin IV 100 mls/hr Q24H CARL Administration Insulin Aspart 0 units 06/11/23 22:00 06/13/23 12:52 Insulin Aspart 300 Units/3 Ml Insuln.Pen SUBCUT 06/10/24 21:59 1 units TID.WM.HS CARL Administration Protocol Lactulose 30 gm 06/12/23 09:00 06/13/23 08:50 Lactulose 20 Gm/30 Ml Udc PO 06/11/24 08:59 30 gm BID CARL Administration Levetiracetam 500 mg 06/11/23 22:10 06/13/23 08:50 Levetiracetam 500 Mg Tablet PO 06/10/24 22:09 500 mg BID CARL Administration Levothyroxine Sodium 75 mcg 06/12/23 06:30 06/13/23 06:48 Levothyroxine 75 Mcg Tablet PO 06/11/24 06:29 75 mcg DAILY@0630 CARL Administration Loratadine 10 mg 06/12/23 09:00 06/13/23 08:50 Loratadine 10 Mg Tablet PO 06/11/24 08:59 10 mg DAILY CARL Administration Magnesium Hydroxide 15 ml 06/11/23 22:05 Magnesium Hydroxide Susp 30 Ml Udc PO 06/10/24 22:04 BID PRN constipation Nystatin 1 applic 06/11/23 22:00 06/13/23 08:52 Nystatin 100,000 Unit/Gram Powder 15 Gm Bottle TOPICAL 06/10/24 21:59 1 applic TID CARL Administration Ondansetron HCl 4 mg 06/11/23 21:04 Ondansetron 4 Mg/2 Ml Vial IV-PUSH 06/10/24 21:03 Q6H PRN Nausea And Vomiting Sertraline HCl 125 mg 06/12/23 09:00 06/13/23 08:50 Sertraline 50 Mg Tablet PO 06/11/24 08:59 125 mg DAILY CARL Administration Sodium Chloride 0 ml 06/11/23 22:00 06/13/23 05:14 Sodium Chloride 0.9 % 10 Ml Syringe IV-PUSH 06/10/24 21:59 10 ml QSHIFT CALR Administration Sterile Water 5 ml 06/12/23 15:40 Water For Injection,Sterile 10 Ml Vial INJECTION 06/11/24 15:39 PRN PRN Reconstitute acetaZOLAMIDE A&P - Hospitalist Assessment/Plan (1) Acute on chronic respiratory failure with hypoxia and hypercapnia: (2) CHF (congestive heart failure): (3) Obstructive sleep apnea: (4) UTI (urinary tract infection): (5) Diabetes: (6) Hypothyroid: (7) History of seizure: Plan 1. Acute on chronic respiratory failure with hypoxia and hypercapnia -Patient wears nightly BiPAP at home and is on chronic 4 L oxygen nasal cannula daily -CXR with possible groundglass infiltrative changes -Pulmonology consulted and following. -Maintain nightly BiPAP -Patient currently off BiPAP and on high flow at 40% -ABGs improved with pH 7.3, CO2 67, O2 44 -Continue acetazolamide and IV Lasix per pulmonology 2. Diastolic congestive heart failure -History of unknown open heart surgery as a child -Echocardiogram with preserved ejection fraction -IV Lasix 20 mg twice daily 3. Obstructive sleep apnea -Patient on home BiPAP nightly 4. Urinary tract infection, failed outpatient treatment with cephalexin -UA on 06/11 no sign of infection -Follow-up on urine culture obtained at [facility] -Continue ceftriaxone Chronic conditions -T2 DM: Sliding scale insulin, hold metformin -Seizure disorder: Continue Keppra -Continue home Vistaril, Zoloft -Hypothyroidism: Continue Synthroid -HLD: Continue statin CODE STATUS: Full code DVT prophylaxis: Lovenox +++ +++ I discussed the case with the patient's guardian at the bedside. Today she is awake. She is alert. She is smiling and making some jokes. She is on the Vapotherm high flow nasal cannula oxygen system at 40 L/min and FiO2 titrated down to 40%. I personally examined the patient on this day of the encounter. I reviewed the relevant history, performed the patel elements of the physical examination, and coordinated the plan of care and I confirmed the resident's medical documentation as written. - - - Constantino Burdick DO. Internal Medicine+ Hospitalist attending physician. Documented By: Constantino Burdick DO [id number] Signed By: <Electronically signed by Constantino Burdick DO> 06/13/23 1707 <Electronically signed by DO VALERIE Weber> 06/13/23 1636 [facility] Work Phone: 1(240) 633-344704-19-2024 Progress note Author Chivo Basilio [facility] June 13, 2023 3:20pmNote Date/TimeApril 2023 1:51[place] [address] Pulmonology Progress Note Signed Patient: Kelsey Graves MR#: [id number] : 1980 Acct:[id number] Age/Sex: 42 / F Adm Date: 4 Loc: Room: [address] [place] [address] Type: ADM IN Attending Dr: Constantino Burdick DO Copies to: ~ Date of Service: 06/13/2023 Subjective Subjective Narrative: Ms. Graves is a 42 year old female with past medical history of Down syndrome, hypothyroidism, JANET with nocturnal CPAP, pseudoseizures, and history of open heart surgery as a child who was seen at [facility] of the hospitalist service for concerns of acute on chronic hypercapnic respiratory failure. The patient had no overnight events. She she has had the BiPAP on consistently, though she does try to pull it off quite frequently. Today on exam she was awake intermittently and stated that she was feeling good this morning. Exam Physical Exam Vital Signs: Temp Pulse Resp BP Pulse Ox O2 Del Method O2 Flow Rate 98.7 F 77 17 108/57 L 97 BiPAP 6 06/13/23 04:00 06/13/23 07:41 06/13/23 07:41 06/13/23 06:00 06/13/23 07:41 06/13/23 08:00 06/12/23 21:00 FiO2 50 06/13/23 07:41 Narrative: Const General: More cooperative than yesterday, on BiPAP, patient is intermittently awake HEENT Currently on BiPAP Pulmonary Auscultation: clear to auscultation , no crackles, no wheezes Cardiovascular Rate: normal rate Rhythm: regular rhythm Heart Sounds: S1 normal, S2 normal and no murmurs GI Inspection: non-distended, obese Palpation: soft, not firm and nontender. No rigidity or rebound. Deferred Neuro General: Patient fluctuating between alertness and somnolence Musculoskeletal: normal range of motion Extrem General: no cyanosis, no pitting edema in the lower extremities Objective Intake and Output I&O - Last 24 Hours: Intake & Output 06/12/23 06/13/23 06/13/23 23:59 07:59 15:59 Intake Total 600 / 600 Output Total 850 / 850 750 / 750 Balance -850 / -450 -150 / -150 Weight 84.7 kg Labs 06/13/23 06:22 06/13/23 06:22 Assessment/Plan Assessment/Plan (1) Acute on chronic respiratory failure with hypoxia and hypercapnia: (2) Obstructive sleep apnea: (3) UTI (urinary tract infection): (4) Pneumonitis: Plan Patient is a 42-year-old female who presented to the ICU with fluctuating mentalstatus and was admitted for acute on chronic hypercapnic respiratory failure. Patient has been doing better since yesterday and has been reluctantly wearing the BiPAP throughoutthe evening Repeat ABG this morning showed improvement of hypercapnia and acidemia with a pHof 7.33, pCO2 of 67.9, and a pO2 of 44.6 on with BiPAP 16/6 and a FiO2 of 50 We will transition her to high flow intermittently with BiPAP. Goal of saturations greater than 90% Patient's BNP level was 53, and echo from yesterday demonstrated an EF of 50 to 55% with signs of increased right atrial pressure. Currently her fluid balance is -1000 mL. Images from the chest CT back in 06/2022 demonstrated bibasilar atelectasis with groundglass infiltrates bilateral lungs with honeycombing in the upper lobes andair trapping on the left, as well as stenosis of the trachea. Imaging from [facility] demonstrates a patent trachea with some early honeycombing in the upper lobes, and redemonstrated air trapping on the left. There were no areas of consolidation. Repeat UA today shows no evidence of UTI. CRP was slightly elevated at 4.8, procalcitonin is pending From the evidence of the BNP and echo from yesterday, her worsening somnolence is most likely multifactorial with a combination of home medications such as Flexeril and Keppra, BiPAP noncompliance, and potentially a resolving infectiousprocess. Patient is vaccinated the bedside. Neurologic status improved. She is more awake, following simple commands. Did tolerate BiPAP overnight and will be transition to high flow nasal cannula this morning. The goal is to alternate noninvasive ventilation and BiPAP and wean from it as tolerated. Avoid se datives. Will reassess need for Lasix tomorrow and continue acetazolamide for3 days. Continue empiric antibiotics. CCT:35 minutes Documented By: Chivo Basilio MD [id number] Signed By: <Electronically signed by Chivo Basilio MD> 06/13/23 1520 [facility] Work Phone: [phone]) [phone] Consult note Author Chivo Basilio [facility] June 13, 2023 9:42amNote Date/TimeApril 2023 3:40pm[place] [address] Pulmonology Consult Note Signed Patient: Kelsey Graves MR#: [id number] : 1980 Acct:[id number] Age/Sex: 42 / F Adm Date: 4 Loc: Room: [address] [place] [address] Type: ADM IN Attending Dr: Constantino Burdick DO Copies to: MD Chivo Barriga MD Kristopher L Lindbloom, DO~ HPI Date/Time of Consultation: Date of Service: 06/12/2023 Time of Service: 10:42 Consulting Provider: Chivo Sidhu Requesting Provider: Constantino Burdick Reason for Consult: Acute on chronic hypercapnic respiratory failure History of Present Illness History of present illness: Ms. Graves is a 42 year old female with past medical history of Down syndrome, hypothyroidism, JANET with nocturnal CPAP, pseudoseizures, and history of open heart surgery as a child who was seen at [facility] of the hospitalist service for concerns of acute on chronic hypercapnic respiratory failure. She was admitted on 06/11/2023 after she was transferred from [facility] room after being sent in by her PCP for hypoxia. Per the hospitalist report there was a CTA chest performed at [facility] which demonstrated no evidence of PE, minimal to mild patchy central and lower lung zone airspace opacities, possibly pulmonary edema, pneumonitis and/or atelectasis, mild subpleural probable early honeycombing from the mid to upper lung zones predominantly anteriorly suggestive of mild chronic interstitial lung disease such as UIP . The patient had a COVID and influenza swab which was negative. Patient was initially admitted to the med/surge floor, where she subsequently wason BiPAP and became obtunded. There was an ABG that demonstrated hypercapnia with a pH of 7.29,pCO2 of 81, pO2 of 115 with oxygen saturations at 97% on CPAPwith a FiO2 of 50%. She subsequently was admitted to the ICU. Upon mission to the ICU she was somnolent but arousable. The BiPAP was adjustedto 16/6 with FiO2 of30%. Patient became slightly agitated. Patient elderly sitter arrived and provided some history. She states that the patient's been a little bit more sleepy throughout the day. She does state that the patient's currentlyon 4 L nasal cannula during the day and 2 L on BiPAP at night. She states that the patient has not symptomatic cough or fever. She does state that she has been pretty short of breath but that is typically her baseline. Currently the patient is following with Dr. Lindsay on outpatient basis. Review of Systems Review of Systems Unobtainable due to mental status [facility] Medical History (Updated 06/12/23 @ 17:32 by Constantino Burdick DO) (HFpEF) heart failure with preserved ejection fraction Chronic respiratory failure with hypoxia and hypercapnia Diabetes Seizure Hypothyroid HTN (hypertension) Down syndrome Surgical History (Updated 06/11/23 @ 21:37 by Gloria Barrera APRN) History of open heart surgery as a child Family History (Updated 02/03/23 @ 14:00 by Provider Conversion) Father Mother Social History Smoking Status: Never smoker Substance Use Type: None Meds Medications and Allergies Allergies diazepam Allergy (Unknown, Verified 05/06/23 21:50) Unknown Reaction Home Medications Lactobacillus acidoph-L.bulgaricus 1 million cell tablet (Floranex) 1 tab PO DAILY 12/28/18 [History Confirmed 06/11/23] acetaminophen 325 mg capsule 650 mg PO Q6H PRN Pain 12/28/18 [History Confirmed 06/11/23] cetirizine 10 mg tablet 10 mg PO DAILY 12/28/18 [History Confirmed 06/11/23] cholecalciferol (vitamin D3) 50 mcg (2,000 unit) capsule (Vitamin D3) 2,000 unitPO DAILY 12/28/18 [History Confirmed 06/11/23] lactulose 10 gram/15 mL oral solution 30 ml PO BID 12/28/18 [History Confirmed 06/11/23] levothyroxine 75 mcg tablet 75 mcg PO DAILY 12/28/18 [History Confirmed 06/11/23] multivitamin (One-A-Day Essential tablet) 1 tab PO DAILY 12/28/18 [History Confirmed 06/11/23] fluticasone propionate 50 mcg/actuation nasal spray,suspension 1 spray intranasal DAILY 12/17/20 [History Confirmed 06/11/23] sertraline 100 mg tablet 125 mg PO DAILY 12/17/20 [History Confirmed 06/11/23] ammonium lactate 12 % lotion 1 applic topical BID 06/22/22 [History Confirmed 06/11/23] levetiracetam 500 mg tablet 500 mg PO BID #30 tabs 06/28/22 [Rx Confirmed 06/11/23] Cranberry Plus Vitamin C 1 tab PO DAILY 03/13/23 [History Confirmed 06/11/23] cephalexin 500 mg capsule 500 mg PO 3XW 03/13/23 [History Confirmed 06/11/23] albuterol sulfate 90 mcg/actuation aerosol inhaler (ProAir HFA) 1 puff inhalation Q4H PRN shortnessof breath 04/05/23 [History Confirmed 06/11/23] guaifenesin 600 mg tablet, extended release 12 hr 1,200 mg PO BID PRN [id number]/10/24 [History Confirmed 06/11/23] hydroxyzine HCl 50 mg tablet 50 mg PO HS 04/05/23 [History Confirmed 06/11/23] metformin 500 mg tablet 500 mg PO QPM 04/05/23 [History Confirmed 06/11/23] simvastatin 20 mg tablet 20 mg PO QPM 04/05/23 [History Confirmed 06/11/23] trazodone 150 mg tablet 150 mg PO HS PRN sleep 04/05/23 [History Confirmed 06/11/23] cephalexin 500 mg capsule 500 mg PO TID 7 days #21 caps 04/15/23 [Rx Confirmed 06/11/23] cyclobenzaprine 10 mg tablet 10 mg PO TID PRN Muscle Spasm #10 tabs 05/06/23 [Rx Confirmed 06/11/23] ibuprofen 800 mg tablet 800 mg PO TID PRN Pain #20 tabs 05/06/23 [Rx Confirmed 06/11/23] Lactobacillus acidoph-L.bulgaricus 1 million cell tablet (Floranex) 1 tab PO DAILY 06/11/23 [History Confirmed 06/11/23] calcium polycarbophil 625 mg tablet (Fiber Therapy (ca polycarbophil)) 625 mg PODAILY 06/11/23 [History Confirmed 06/11/23] calcium polycarbophil 625 mg tablet (Fiber-Lax) 625 mg PO QAM 06/11/23 [History Confirmed 06/11/23] magnesium hydroxide 400 mg/5 mL oral suspension (Milk of Magnesia) 15 ml PO BID PRN constipation 06/11/23 [History Confirmed 06/11/23] magnesium hydroxide 400 mg/5 mL oral suspension (Milk of Magnesia) 15 ml PO BID PRN constipation 06/11/23 [History Confirmed 06/11/23] nystatin 100,000 unit/gram topical cream 1 applic topical BID PRN rash 06/11/23 [History Confirmed 06/11/23] Exam Physical Exam Vital Signs: Temp Pulse Resp BP Pulse Ox O2 Del Method O2 Flow Rate 98.2 F 63 12 160/83 H 95 BiPAP 6 06/11/23 21:06 06/12/23 08:46 06/12/23 08:00 06/12/23 10:37 06/12/23 10:37 06/12/23 10:37 06/12/23 08:00 FiO2 40 06/12/23 10:30 Narrative: Const General: uncooperative, on BiPAP, patient slightly agitated HEENT Currently on BiPAP Pulmonary Auscultation: clear to auscultation , no crackles, no wheezes Cardiovascular Rate: normal rate Rhythm: regular rhythm Heart Sounds: S1 normal, S2 normal and no murmurs GI Inspection: non-distended, obese Palpation: soft, not firm and nontender. No rigidity or rebound. Deferred Neuro General: Patient fluctuating between alertness and somnolence Musculoskeletal: normal range of motion Extrem General: no cyanosis, no pitting edema in the lower extremities Results - Pulmonology Intake and Output I&O - Last 24 Hours: Intake & Output 06/11/23 06/12/23 06/12/23 23:59 07:59 15:59 Intake Total 400 / 400 Balance 400 / 400 Weight 87.6 kg 84.7 kg Labs 06/13/23 06:22 06/13/23 06:22 Assessment/Plan (1) Acute on chronic respiratory failure with hypoxia and hypercapnia: (2) UTI (urinary tract infection): (3) Pneumonitis: Plan Patient is a 42-year-old female who presented to the ICU with fluctuating mentalstatus and was admitted for acute on chronic hypercapnic respiratory failure. Apparently last night she did not wear the BiPAP throughout the evening. Patient had a ABG that showed hypercapnia with a pH of 7.26 and a pCO2 of 81. Upon on arrival to the ICU the patient was moving her arms and attempting to situp. Patient's BiPAP was adjusted and current settings are 16/6 and FiO2 of 30% she is showing oxygen saturations in the low 90s. Today the patient had a echo and the results are pending. We will also obtain aBNP We obtained a chest x-ray that demonstrated infiltrate in the right and left lower lobes With the continuous BiPAP the patient's been more responsive and has asked for something to eat, and and is resting comfortably. Repeat ABG demonstrates improvement of her hypercapnia with a pH of 7.3, pCO2 of 74, pO2 of 68.8. We will increase the FiO2 to 50%. Will continue to follow ABGs. Images from the chest CT back in 06/2022 demonstrated bibasilar atelectasis with groundglass infiltrates bilateral lungs with honeycombing in the upper lobes andair trapping on the left, as well as stenosis of the trachea. We will attempt to obtain the imaging from [facility] to compare. With a recent history of burning with urination and UA from [facility] that was questionable for UTI, we will obtain a UA and send for cultures if needed. Will obtain a CRP and procalcitonin and if able we will also get a sputum culture With the progressive sleepiness that the patient's been experiencing per the guardian, we will lookfor etiologies that could be exacerbating her underlying conditions. There is potential this to be an infectious versus cardiogenic process. Patient seen and examined at the bedside. She was admitted with diagnosis of acute on chronic hypercapnic/hypoxemic respiratory failure, requiring noninvasive positive pressure ventilation, acute metabolic encephalopathy, heartfailure with unknown ejection fraction, UTI, possible aspiration pneumoni a,interstitial lung disease and obstructive sleep apnea. Noninvasive ventilator settings adjusted to correct hypercapnic respiratory failure, started on low-dose Lasix and acetazolamide, will continue empiric IV antibiotics and follow cultures. Echocardiogram has been ordered and pending. CT chest images requested. CCT:60 minutes Documented By: Chivo Basilio MD [id number] Signed By: <Electronically signed by Chivo Basilio MD> 06/13/23 0942 [facility] Work Phone: [phone]) 418-296004-18-2024 Progress note Author Constantino Burdick [facility] June 12, 2023 5:33pmNote Date/TimeApril 2023 5:17pm[place] [address] Hospitalist Progress Note Signed Patient: Kelsey Graves MR#: [id number] : 1980 Acct:[id number] Age/Sex: 42 / F Adm Date: 4 Loc: Room: [address] [place] [address] Type: ADM IN Attending Dr: Constantino Burdick DO Copies to: ~ Date of Service: 06/12/2023 Subjective Subjective Narrative: Patient was seen and examined this morning. This morning patient had requested pancakes for breakfast but was unable to eat them since she was drowsy. Nursingstaff felt patient was much more drowsy and difficult to arouse than earlier in the morning. Patient was placed on BiPAP and an ABG was ordered. Apparently patient did not wear her BiPAP throughout the evening. ABG showed hypercapnia and a pH of 7.29. Patient was transferred to the ICU. Discussed with the patient's guardian. Her guardian states patient has been much more drowsy the past several weeks and frequently falls asleep. She is also had some falls at her home. Patient does have history of sleep apnea and wears BiPAP at night. She is also on chronic 4 L oxygen. Patient was reexamined later in the afternoon. She remains on BiPAP with settings of 16/6. Patient is still somnolent but arousable and withdrawals to pain. Exam Physical Exam Vital Signs: Temp Pulse Resp BP Pulse Ox O2 Del Method O2 Flow Rate 97.5 F L 60 22 105/56 L 92 L BiPAP 6 06/12/23 12:00 06/12/23 14:20 06/12/23 14:20 06/12/23 14:00 06/12/23 14:20 06/12/23 14:00 06/12/23 08:00 FiO2 50 06/12/23 14:35 Narrative: General: On BiPAP, obese Head: Atraumatic, normocephalic EENT: conjunctivae clear. No scleral icterus. On BiPAP. CV: Regular rate and rhythm. No murmurs, rubs, or gallops Respiratory: Clear to auscultation bilaterally. No wheezes, rhonchi, rales Abdominal: Soft, nondistended, nontender normoactive bowel sounds. Extremities: No cyanosis, clubbing. No calf tenderness. Trace pitting edema bilateral extremities Neuro: Difficult to arouse, somnolent. Withdraws to pain. Hard of hearing Objective Lab Results 06/12/23 06:12 06/12/23 06:12 ABG Interpretation ABG results: 06/12/23 06/12/23 09:53 14:16 ABG pH 7.29 L 7.30 L ABG pCO2 81.2 H* 74.4 H* ABG pO2 115.3 H 68.8 L ABG HCO3 37.8 H 36.0 H ABG Total CO2 40.3 H 38.3 H ABG O2 Saturation 97.3 91.4 L ABG O2 Content 8.2 7.4 ABG Base Excess 8.1 H 7.1 H Meds Allergies and Active Meds Allergies diazepam Allergy (Unknown, Verified 05/06/23 21:50) Unknown Reaction Active Meds: Active Medications Generic Name Dose Route Start Last Admin Trade Name Freq PRN Reason Stop Dose Admin Acetaminophen 1,000 mg 06/11/23 21:04 Acetaminophen 500 Mg Tablet PO 06/10/24 21:03 Q6HR PRN Pain Scale 1 - 3 or fever Acetazolamide 250 mg 06/12/23 16:00 Acetazolamide 500 Mg/5 Ml Vial IV-PUSH 06/13/24 15:59 DAILY CARL Albuterol 2.5 mg 06/11/23 21:04 Albuterol Neb 2.5 Mg/3 Ml Vial.Neb INHALATION 06/10/24 21:03 Q3H PRN Cough/Wheeze Ammonium Lactate 1 applic 06/12/23 09:00 06/12/23 11:28 Ammonium Lactate 12% Lot 226 Gm Bottle TOPICAL 06/11/24 08:59 1 applic BID CARL Administration Atorvastatin Calcium 10 mg 06/12/23 21:00 Atorvastatin 10 Mg Tablet PO 06/11/24 20:59 QPM CARL Dextrose 0 gm 06/11/23 21:10 Dextrose 50% In Water 25 Gm/50 Ml Syringe IV-PUSH 06/10/24 21:09 PRN PRN Hypoglycemia Enoxaparin Sodium 40 mg 06/12/23 10:00 06/12/23 11:23 Enoxaparin 40 Mg/0.4 Ml Syringe SUBCUT 06/11/24 09:59 40 mg DAILY@10 CARL Administration Fluticasone Propionate 1 spray 06/12/23 09:00 06/12/23 11:20 Fluticasone Propionate [place] 120 [place]/16 Gm Bottle INTRANASAL 06/11/24 08:59 Not Given DAILY CARL Furosemide 20 mg 06/12/23 16:00 Furosemide 20 Mg/2 Ml Vial IV-PUSH 06/11/24 15:59 BID@0800,1600 CARL Glucose 0 gm 06/11/23 21:10 Dextrose 40% Gel 15 Gm Tube PO 06/10/24 21:09 PRN PRN Hypoglycemia Guaifenesin 1,200 mg 06/12/23 09:00 06/12/23 11:20 Guaifenesin 600 Mg Tab.Er.12h PO 06/11/24 08:59 Not Given BID CARL Hydroxyzine Pamoate 50 mg 06/12/23 22:00 Hydroxyzine Pamoate 50 Mg Capsule PO 06/11/24 21:59 HS CARL Ceftriaxone Sodium 1 gm in 50 mls @ 100 mls/hr 06/11/23 21:30 06/11/23 22:07 Rocephin IV 100 mls/hr Q24H CARL Administration Insulin Aspart 0 units 06/11/23 22:00 06/12/23 11:27 Insulin Aspart 300 Units/3 Ml Insuln.Pen SUBCUT 06/10/24 21:59 Not Given TID.[facility] Protocol Lactulose 30 gm 06/12/23 09:00 06/12/23 11:20 Lactulose 20 Gm/30 Ml Udc PO 06/11/24 08:59 Not Given BID CARL Levetiracetam 500 mg 06/11/23 22:10 06/12/23 11:19 Levetiracetam 500 Mg Tablet PO 06/10/24 22:09 Not Given BID CARL Levothyroxine Sodium 75 mcg 06/12/23 06:30 06/12/23 06:43 Levothyroxine 75 Mcg Tablet PO 06/11/24 06:29 75 mcg DAILY@0630 CARL Administration Loratadine 10 mg 06/12/23 09:00 06/12/23 11:21 Loratadine 10 Mg Tablet PO 06/11/24 08:59 Not Given DAILY CARL Magnesium Hydroxide 15 ml 06/11/23 22:05 Magnesium Hydroxide Susp 30 Ml Udc PO 06/10/24 22:04 BID PRN constipation Nystatin 1 applic 06/11/23 22:00 06/12/23 16:43 Nystatin 100,000 Unit/Gram Powder 15 Gm Bottle TOPICAL 06/10/24 21:59 1 applic TID CARL Administration Ondansetron HCl 4 mg 06/11/23 21:04 Ondansetron 4 Mg/2 Ml Vial IV-PUSH 06/10/24 21:03 Q6H PRN Nausea And Vomiting Sertraline HCl 125 mg 06/12/23 09:00 06/12/23 11:21 Sertraline 50 Mg Tablet PO 06/11/24 08:59 Not Given DAILY CARL Sodium Chloride 0 ml 06/11/23 22:00 06/12/23 16:43 Sodium Chloride 0.9 % 10 Ml Syringe IV-PUSH 06/10/24 21:59 10 ml QSHIFT CARL Administration Sterile Water 5 ml 06/12/23 15:40 Water For Injection,Sterile 10 Ml Vial INJECTION 06/11/24 15:39 PRN PRN Reconstitute acetaZOLAMIDE A&P - Hospitalist Assessment/Plan (1) Acute on chronic respiratory failure with hypoxia and hypercapnia: (2) CHF (congestive heart failure): (3) Obstructive sleep apnea: (4) UTI (urinary tract infection): (5) Diabetes: (6) Hypothyroid: (7) History of seizure: (8) Acute diastolic (congestive) heart failure: (9) Diabetes mellitus with hyperglycemia: Plan 1. Acute on chronic respiratory failure with hypoxia and hypercapnia -Patient wears nightly BiPAP at home and is on chronic 2 L oxygen nasal cannula daily -Patient was not on BiPAP overnight, noted to be more somnolent and transferred to ICU -CXR with possible groundglass infiltrative changes -ABG showed pH 7.29, pCO2 81, pO2 115 -Pulmonology consulted and following. -Repeat ABGs with some improvement on BiPAP pH 7.3, pCO2 74, pO2 68 -Maintain BiPAP per pulmonology recommendations -Started on acetazolamide and IV Lasix per pulmonology 2. Suspected congestive heart failure -Echocardiogram ordered and pending -IV Lasix 20 mg twice daily 3. Obstructive sleep apnea Obesity hypoventilation syndrome -Patient on home BiPAP nightly 4. Urinary tract infection, failed outpatient treatment with cephalexin -Follow-up on urine culture obtained at [facility] -Continue ceftriaxone Chronic conditions -T2 DM: Sliding scale insulin, hold metformin -Seizure disorder: Continue Keppra -Continue home Vistaril, Zoloft -Hypothyroidism: Continue Synthroid -HLD: Continue statin CODE STATUS: Full code DVT prophylaxis: Lovenox +++ +++ The echocardiogram came back this evening with a preserved left ventricular ejection fraction. Therefore the patient has acute diastolic congestive heart failure. Echocardiogram was understandably suboptimal on study given her body habitus butdid not specifically comment on pulmonary hypertension. Hemoglobin A1c is 7.1. Fortunately in the ICU the patient seems to be improving on BiPAP. I personally examined the patient on this day of the encounter. I reviewed the relevant history, performed the patel elements of the physical examination, and coordinated the plan of care and I confirmed the resident's medical documentation as written. - - - Constantino Burdick DO. Internal Medicine+ Hospitalist attending physician. Documented By: Constantino Burdick DO [id number] Signed By: <Electronically signed by Constantino Burdick DO> 06/12/23 1733 <Electronically signed by DO PADILLA Shruthi Weber> 06/12/23 1719 [facility] Work Phone: 1(887) 438-984904-18-2024 History and physical note Author Bigg Schulz [facility] June 11, 2023 11:25pmNote Date/TimeApril 2023 9:15pm[place] [address] Hospitalist H&P Signed with Addenda Patient: Kelsey Graves MR#: [id number] : 1980 Acct:[id number] Age/Sex: 42 / F Adm Date: 4 Loc: Room: [address] [place] [address] Type: ADM IN Attending Dr: Yasir Chaves MD Copies to: MD Delgado Corrales MD Obaydah M Daromar, MD Paula G Smith, COUNTY HISTORIAN~ ADDENDUM1 Attending note: I saw the patient personally on the day of encounter. I reviewed the relevant history, and performed the patel elements of the physical examination. I reviewedthe relevant laboratory workup, radiological studies and the current treatment plan. I formulated the plan of care and confirmed it with the re sident/student/[employer]. Patient is currently comfortable. She wishes to go home. Lungs with minimal expiratory wheezes. [id number] ultrasound of relatively poor quality, but overall no major abnormalities noted. Addendum Documented By: Bigg Schulz MD 06/11/232324 Addendum Signed By: <Electronically signed by Bigg Schulz MD> 06/11/232324 HPI DATE OF EXAMINATION: 06/11/23 CHIEF COMPLAINT: fatigue, hypoxia at dr. office HISTORY OF PRESENT ILLNESS: Ms. Graves is a 42-year-old female with PMH Down syndrome, open heart as a child,T2DM, JANET on CPAP, chronic respiratory failure on 4 L nasal cannula at all times, BiPAP at night with 5 L oxygen, seizure disorder, hypothyroidism, HTN that presented to [facility] emergency room for a low pulse ox noted at the doctor's office. Patient seen and examined upon transfer to [facility], Cassandra james at bedside. Patient is alert and oriented to self, she is quite pleasant asking for food. She denies pain. She does follow sleep during questions. Her guardian states that she has been doing a lot the last 3 weeks, she has fallen off of furniture from falling asleep. She states that she also complained of pain and burning when urinating to the care home staff. Patient went to the doctor today for the fatigue, she is also to have a sleep study done today. Guardian also states that the patient was coughing up yellow sputum while at [facility] emergency room. She does notknow if the patient has had any fevers, chills, cough, shortness of breath. Patient was noted to have a pulse ox in the 70s on 4L NC at PCP office. EKG at [facility] shows sinus rhythm. Chest x-ray showed mild to moderate predominantly bibasilar airspace opacities. CTA of the chest was performed, no evidence of PE, minimal to mild patchy central and lower lung zone airspace opacities, possibly pulmonary edema, pneumonitis and/or atelectasis, mild subpleural probable early honeycombing from the mid to upper lung zones predominantly anteriorly suggestive of mild chronic interstitial lung disease such as UIP. CBC with a white blood cell count of 10.4, H&H 11.9/37.6. Nasal swab was negative for COVID, influenza. ABG was performed with a pH of 7.359, pCO2 62.2, pO2 80.4, bicarb 31.2. Coags unremarkable. CMP with a serum bicarb of 33, ALT 99, AST 56. Lactic acid normal at 0.7. BNP 99, initial troponin 138.1, repeat 166.1. UA with clear, yellow urine, trace of protein, leukocytes,positive for nitrites, trace bacteria. Patient was medicated with DuoNeb, furosemide and ceftriaxone. She was transferred here to [facility] as inpatient under the care of the hospitalist team. Review of Systems Review of Systems Unobtainable due to mental condition [facility] Medical History (Updated 06/11/23 @ 21:48 by Gloria Barrera APRN) Seizure Hypothyroid HTN (hypertension) Down syndrome Surgical History (Updated 06/11/23 @ 21:37 by Gloria Barrera APRN) History of open heart surgery as a child Family History (Updated 02/03/23 @ 14:00 by Provider Conversion) Father Mother Social History Housing/Living Situation Comments: care home Smoking Status: Never smoker Substance Use Type: None Meds Medications and Allergies Allergies diazepam Allergy (Unknown, Verified 05/06/23 21:50) Unknown Reaction Home Medications Lactobacillus acidoph-L.bulgaricus 1 million cell tablet (Floranex) 1 tab PO DAILY 12/28/18 [History Confirmed 06/11/23] acetaminophen 325 mg capsule 650 mg PO Q6H PRN Pain 12/28/18 [History Confirmed 06/11/23] cetirizine 10 mg tablet 10 mg PO DAILY 12/28/18 [History Confirmed 06/11/23] cholecalciferol (vitamin D3) 50 mcg (2,000 unit) capsule (Vitamin D3) 2,000 unitPO DAILY 12/28/18 [History Confirmed 06/11/23] lactulose 10 gram/15 mL oral solution 30 ml PO BID 12/28/18 [History Confirmed 06/11/23] levothyroxine 75 mcg tablet 75 mcg PO DAILY 12/28/18 [History Confirmed 06/11/23] multivitamin (One-A-Day Essential tablet) 1 tab PO DAILY 12/28/18 [History Confirmed 06/11/23] fluticasone propionate 50 mcg/actuation nasal spray,suspension 1 spray intranasal DAILY 12/17/20 [History Confirmed 06/11/23] sertraline 100 mg tablet 125 mg PO DAILY 12/17/20 [History Confirmed 06/11/23] ammonium lactate 12 % lotion 1 applic topical BID 06/22/22 [History Confirmed 06/11/23] levetiracetam 500 mg tablet 500 mg PO BID #30 tabs 05/05/23 [Rx Confirmed 06/11/23] Cranberry Plus Vitamin C 1 tab PO DAILY 03/13/23 [History Confirmed 06/11/23] cephalexin 500 mg capsule 500 mg PO 3XW 03/13/23 [History Confirmed 06/11/23] albuterol sulfate 90 mcg/actuation aerosol inhaler (ProAir HFA) 1 puff inhalation Q4H PRN shortnessof breath 04/05/23 [History Confirmed 06/11/23] guaifenesin 600 mg tablet, extended release 12 hr 1,200 mg PO BID PRN [id number]/10/24 [History Confirmed 06/11/23] hydroxyzine HCl 50 mg tablet 50 mg PO HS 04/05/23 [History Confirmed 06/11/23] metformin 500 mg tablet 500 mg PO QPM 04/05/23 [History Confirmed 06/11/23] simvastatin 20 mg tablet 20 mg PO QPM 04/05/23 [History Confirmed 06/11/23] trazodone 150 mg tablet 150 mg PO HS PRN sleep 04/05/23 [History Confirmed 06/11/23] cephalexin 500 mg capsule 500 mg PO TID 7 days #21 caps 04/15/23 [Rx Confirmed 06/11/23] cyclobenzaprine 10 mg tablet 10 mg PO TID PRN Muscle Spasm #10 tabs 05/06/23 [Rx Confirmed 06/11/23] ibuprofen 800 mg tablet 800 mg PO TID PRN Pain #20 tabs 05/06/23 [Rx Confirmed 06/11/23] Lactobacillus acidoph-L.bulgaricus 1 million cell tablet (Floranex) 1 tab PO DAILY 06/11/23 [History Confirmed 06/11/23] calcium polycarbophil 625 mg tablet (Fiber Therapy (ca polycarbophil)) 625 mg PODAILY 06/11/23 [History Confirmed 06/11/23] calcium polycarbophil 625 mg tablet (Fiber-Lax) 625 mg PO QAM 06/11/23 [History Confirmed 06/11/23] magnesium hydroxide 400 mg/5 mL oral suspension (Milk of Magnesia) 15 ml PO BID PRN constipation 06/11/23 [History Confirmed 06/11/23] magnesium hydroxide 400 mg/5 mL oral suspension (Milk of Magnesia) 15 ml PO BID PRN constipation 06/11/23 [History Confirmed 06/11/23] nystatin 100,000 unit/gram topical cream 1 applic topical BID PRN rash 06/11/23 [History Confirmed 06/11/23] Exam Physical Exam Vital Signs: Temp Resp BP Pulse Ox O2 Del Method O2 Flow Rate 97.6 F 20 139/88 96 Nasal Cannula 5 06/11/23 20:33 06/11/23 20:33 06/11/23 20:33 06/11/23 20:33 06/11/23 20:33 06/11/23 20:33 Narrative: CONST- Appears well -developed and well nourished. Morbidly obese- BMI 40.4, pleasant HEAD - Normocephalic and atraumatic EENT-Sclera nonicteric, conjunctive are non-erythemic, moist oral mucosa, pharynx clear NECK-Supple, no cervical lymphadenopathy CARDIAC-normal rate, regular rhythm, S1 & S2. PULM-diminished, fine crackles to mid right posterior, 5L NC, no accessory muscle use or cough noted ABD - Soft. Bowel sounds are normal. Softly distended. No tenderness EXTREM-no edema BLE calves, nontender SKIN- W/D good turgor, redness and odor under right breast and redness to R breast, slight redness under left breast MS- MAEX4 spontaneously with equal with equal strength NEURO- A&Ox1 speech difficult to understand, garbled and tongue midline, equal facial symmetry,no focal motor deficits PSYCH-Mood, affect, and behavior appropriate Assessment & Plan Assessment/Plan (1) Acute on chronic respiratory failure with hypoxia and hypercapnia: (2) Obstructive sleep apnea: (3) CHF (congestive heart failure): (4) UTI (urinary tract infection): (5) Down syndrome: (6) Diabetes: (7) Hypothyroid: (8) Intertrigo: Plan Acute on chronic respiratory failure with hypoxia and hypercapnia JANET on BiPAP ? Continue oxygen, patient wears 4 L nasal cannula since 06/08/2023, SpO2 down to85%, prior to 06/07,she was on 2L NC for the last year ? Continue BiPAP at at bedtime, keep Spo2 > 90% ? Albuterol as needed - Please obtain sputum culture if able Congestive heart failure-no prior history- received furosemide at [facility] Elevated troponin- 138.1, 166.1, no c/o chest pain, possibly from hypoxia - Echo in am - Troponin now and in am UTI?failed outpatient treatment with cephalexin ? Follow urine culture from [facility] ? Continue ceftriaxone- pharmacy to dose Intertrigo ? Nystatin powder under bilateral breasts and abdominal folds 3 times daily, keep dry Chronic conditions T2DM?fingersticks ACHS, SSI AC, hold metformin due to CT dye for 48 hours Seizure disorder?continue levetiracetam Hypothyroidism?levothyroxine, TSH in a.m. HLD?simvastatin DVT PPx-SCDs, enoxaparin Diet order-1800 ADA CODE STATUS-full code +++ +++ The patient is accompanied this evening by her legal guardian. This is someone who has known her for the last couple decades and with the opportunity arose shebecame the legal guardian for the patient. She notices that once the patient went on oxygen, which was about a year ago after a big episode of pneumonia, herphysical capacity has declined and her weight is gone up. The patient used to be active doing some walking and swimming and [place], but she cannot do those things anymore. The guardian knows that with the patient had cardiac surgery as a small child, but does not know any of the details about it. The patient's biological mother long ago. Clinically the patient has a picture of acute congestive heart failure. She certainly has all the features for right heart failure with BMI of 40, known obstructive sleep apnea disease, progressivehypoxia, and the typical body habitus of Down syndrome. We need to do the echocardiogram to evaluate her leftventricular ejection fraction for possibility of systolic congestive heart failure. On physical examination she does have pitting edema in her legs from her knees down to her ankles. And on auscultation her lung sounds become very diminished in the bottom 70% of the lung lyman. Shehas oxygen saturations of 98% on 5 L nasal cannula but then drops to 88% when I turn her to 3 L nasal cannula, so sheis extremely sensitive to the oxygen titration. I did explain the concept of the heart failure with the guardian in the room in general and layman's terms. I personally examined the patient on this day of the encounter. I reviewed the relevant history, performed the patel elements of the physical examination, and coordinated the plan of care and I confirmed the Nurse Practitioner's medical documentation as written. - - - Constantino Burdick DO. Internal Medicine + Hospitalist attending physician. IP vs OBS Justification Based on differential dx, clinical care plan, and risk of adverse events, if untreated, in my clinical judgement this patient requires an acute care setting as: INPATIENT because of an expectation ofan over 2 midnight stay. Estimated length of stay (# of days): 3 Documented By: Gloria Barrera APRN 06/11/232113 Signed By: <Electronically signed by POLINA Barrera> 06/11/232199 <Electronically signed by Constantino Burdick DO> 06/11/232205 [facility] Work Phone: [phone]) [phone] Evaluation + Plan noteExtracted from:Title: ED NoteAuthor:Bismark Edwards DODate:06/11/23 Acute and chronic respirator y failure with hypoxia (J96.21: Acute and chronic respiratory failure with hypoxia) Acute pulmonary edema (J81.0: Acute pulmonary edema) Acute UTI (N39.0: Urinary tract infection, site not specified) Elevated troponin (R79.89: Other specified abnormal findings of blood chemistry) Orders: albuterol-ipratropium, 9 mL, Soln-Inh, Inhalation, Once, Stop date 06/11/23 11:30:00 EDT, STAT, Start date 06/11/23 11:30:00 EDT ceftriaxone + Sodium Chloride 0.9% intravenous solution 50 mL, 1,000 mg = 1 EA, IV Piggyback, Once,Stop date 06/11/23 15:31:00 EDT, STAT, Start date 06/11/23 15:31:00 EDT, 100 mL/hr, Infuse over 30 minute(s), 06/11/23 15:31:00 EDT furosemide, 40 mg = 4 mL, Injection, IV Push, Once, Stop date 06/11/23 14:48:00 EDT, STAT, Start date 06/11/23 14:48:00 EDT, 06/11/23 14:48:00 EDT Add on Test B-Type Natriuretic Peptide Blood Culture Charcoal Blood Culture Charcoal Blood Gas Art, with Lytes, Gluc, Lact CBC w/ Auto Diff Comprehensive Metabolic Panel Continuous Pulse Oximetry CTA Chest ED Cardiac Monitoring ED Physician consult Hospitalist for continued care eGFR Influenza A&B Ag Lactic Acid Oxygen Therapy PT & PTT Rapid COVID Antigen ([facility]) Saline Lock Insert Troponin Troponin UA with Cult Rflx Urine Culture XR Chest Single View Diagnostic Tests Pending * Blood Culture Charcoal 06/11/23 * Blood Culture Charcoal 06/11/23 * Urine Culture 06/11/23 [facility]09-18-2023 Evaluation note* Encounter Date Diagnosis Assessment Notes Treatment Notes Treatment Clinical Notes Oct, Pneumonia (ICD-10 - J18.9) Oct,Respiratory failure, acute (ICD-10 - J96.00) [facility] Other 05-15-2023 Hospital Discharge instructionsAmbulatory Orders* Initiate Home Health Time Frame: 07/08/22, Location: Determined By Patient Additional Instructions Please continue to use your BiPAP every night at bedtime and during the day with naps. Please wear home oxygen: 2l at rest and increase it to 4l with any activity HOME HEALTH TO MANAGE: Nursing/PT/OT to eval and treat Monitor VS per protocol Monitor Respiratory assessment--Sleep apnea, Pulmonary congestion, Respiratory failure, Pneumonitis Monitor Neuro. assessment--Seizures Maintain oxygen at 2l at rest and increase it to 4l with any activity Assist with glucose control Assist with medication management and provide medication education Provide education on BiPAP use, new oxygen therapy, high risk fall precautions and [facility] precautionsFair[facility] Work Phone: [phone]) 538-118705-15-2023 Progress note Author Nabil Holman [facility] July 08, 2022 11:12amNote Date/TimeMay 2022 11:12[place] [address] Pulmonology Progress Note Signed Patient: Kelsey Graves MR#: [id number] : 1980 Acct:[id number] Age/Sex: 41 / F Adm Date: 3 Loc: 4P Room: [address] [place] [address] Type: ADM IN Attending Dr: Tiesha De MD Copies to: ~ Date of Service: 07/08/2022 Subjective Subjective Narrative: Doing very well today, was up standing at the bedside appeared comfortable in nodistress, oxygenating well on 4 L, hemodynamically stable. Exam Physical Exam Vital Signs: Temp Pulse Resp BP Pulse Ox O2 Del Method O2 Flow Rate 98.2 F 75 22 112/88 93 L Nasal Cannula 4 07/08/22 08:00 07/08/22 08:21 07/08/22 08:21 07/08/22 08:00 07/08/22 08:00 07/08/22 08:25 07/08/22 08:25 FiO2 45 07/08/22 04:50 Narrative: General: Patient was alert awake on nasal cannula this morning during rounds Eyes: Pupils equal round reactive to light HEENT: Normocephalic, atraumatic, oral mucosa moist Neck: Supple no lymphadenopathy or thyromegaly Cardiovascular: S1, S2, normal sounds, no murmurs or gallops noted, regular rhythm Lungs: Diminished breath sounds bilaterally but currently clear to auscultation with occasional basilar rhonchi only Extremities: Improving peripheral edema Neurologic: As detailed above Objective Intake and Output I&O - Last 24 Hours: Intake & Output 07/07/22 07/08/22 07/08/22 23:59 07:59 15:59 Intake Total 750 / 0 250 / 250 Balance 750 / 2050 250 / 250 Weight 82.6 kg Labs 07/01/22 04:55 07/03/22 04:00 Assessment/Plan Assessment/Plan (1) Obstructive sleep apnea: (2) Pulmonary vascular congestion: (3) Obesity: (4) Acute hypoxemic respiratory failure: (5) Acute and chronic respiratory failure with hypercapnia: (6) Pneumonitis: Plan * Plans for discharge today, BiPAP and oxygen therapy already set up, will follow as needed Documented By: Nabil Holman MD 07/08/221109 Signed By: <Electronically signed by Nabil Holman MD> 07/08/221111 [facility] Work Phone: [phone]) [phone] Progress note Author León Shepherd [facility] July 07, 2022 3:19pmNote Date/TimeMay 2022 3:[place] [address] Hospitalist Progress Note Signed Patient: Kelsey Graves MR#: [id number] : 1980 Acct:[id number] Age/Sex: 41 / F Adm Date: 3 Loc: 4 Room: [address] [place] [address] Type: ADM IN Attending Dr: León Shepherd MD Copies to: ~ Date of Service: 07/07/2022 Subjective Subjective Narrative: Patient examined while using pulmonary vest no overnight event. She remains on 4 L oxygen using BiPAP at night. Assessment And Plan Ms. Graves is a pleasant 41F with PMH of Down Syndrome, DM, Hypothyroidism, pseudoseizures, AVMs, JANET(supposed to be on CPAP), Constipation, MO(BMI > 40) who p/w seizure activity and admitted for the evaluation and treatment Acute hypoxic and hypercapnic respiratory failure, Bacterial pneumonia (possibleaspiration) She will be completing Zosyn tomorrow since her functional status is improved she will not qualify for inpatient and likely discharge back to care home. Shewill require oxygen evaluation prior to discharge. Taper oxygen as tolerated. She remains afebrile. Case discussed with legal guardian at bedside. JANET Her CPAP machine was malfunction at home She has been using BiPAP at nighttime. In process to be arranged for BiPAP machine on back to care home by pulmonary service. Reported seizure Reportedly, she had a whole body seizure like activity while having her dinner which lasted for 1 minute and lost consciousness. no postictal period was noted. * EEG shows no definitive epileptiform activity was seen * CT brain shows? no acute intracranial process * TSH wnl, B12 wnl Neurology? was consulted, Samuel was added with outpatient neurology follow-up. No further seizure activity noted. DM sliding scale insulin and accuchecks. hold oral antidiabetic medication/metformin. Blood glucose mostly well controlled Functional impairment Continue PT/OT. Exam Physical Exam Vital Signs: Temp Pulse Resp BP Pulse Ox O2 Del Method O2 Flow Rate 97.9 F 66 18 101/52 L 94 L Nasal Cannula 4 07/07/22 11:25 07/07/22 11:25 07/07/22 11:25 07/07/22 11:25 07/07/22 11:25 07/07/22 11:25 07/07/22 11:25 FiO2 45 07/06/22 23:55 Const General: cooperative Orientation: alert and awake Other: Currently resting comfortably. Resp Effort & Inspection: normal respiratory effort and able to speak in complete sentences Auscultation: no rales, no rhonchi and no wheezes Cardio Rate: regular rate Rhythm: regular rhythm Heart Sounds: S1 normal and S2 normal Neuro General: patient alert, patient awake, moves all extremities and no focal motor deficits Extrem General: no clubbing, cyanosis or edema and no calf tenderness Objective Lab Results 07/01/22 04:55 07/03/22 04:00 Meds Allergies and Active Meds Allergies diazepam Allergy (Verified 06/22/22 19:37) Unknown Reaction Active Meds: Active Medications Generic Name Dose Route Start Last Admin Trade Name Freq PRN Reason Stop Dose Admin Acetaminophen 650 mg 06/23/22 02:25 06/28/22 12:07 Acetaminophen 325 Mg Tablet PO 06/23/23 02:24 650 mg Q6HR PRN Administration Pain Scale 1 - 3 or fever Albuterol/Ipratropium 3 ml 06/23/22 08:00 07/07/22 11:21 Ipratropium/Albuterol 0.5-3 Mg 3 Ml Ampul.Neb INHALATION 06/23/23 07:59 3 ml QID.RESP CARL Administration Ammonium Lactate 1 applic 06/23/22 09:00 07/07/22 09:19 Ammonium Lactate 12% Lot 226 Gm Bottle TOPICAL 06/23/23 08:59 1 applic BID CARL Administration Atorvastatin Calcium 10 mg 06/23/22 22:00 07/06/22 21:05 Atorvastatin 10 Mg Tablet PO 06/23/23 21:59 10 mg HS CARL Administration Calcium Polycarbophil 625 mg 06/23/22 09:00 07/07/22 09:19 Calcium Polycarbophil 625 Mg Tablet PO 06/23/23 08:59 625 mg DAILY CARL Administration Dextrose 0 gm 06/23/22 10:37 Dextrose 50% In Water 25 Gm/50 Ml Syringe IV-PUSH 06/23/23 10:36 PRN PRN Hypoglycemia Doxycycline Hyclate 100 mg 07/04/22 21:00 07/07/22 09:19 Doxycycline Hyclate 100 Mg Tablet PO 07/08/22 23:59 100 mg BID CARL Administration Enoxaparin Sodium 40 mg 06/23/22 10:00 07/07/22 09:19 Enoxaparin 40 Mg/0.4 Ml Syringe SUBCUT 06/23/23 09:59 40 mg DAILY@10 CARL Administration Fluticasone Propionate 1 spray 06/23/22 09:00 07/07/22 09:19 Fluticasone Propionate [place] 120 [place]/16 Gm Bottle INTRANASAL 06/23/23 08:59 1 spray DAILY CARL Administration Glucose 0 gm 06/23/22 10:37 Dextrose 40% Gel 15 Gm Tube PO 06/23/23 10:36 PRN PRN Hypoglycemia Guaifenesin/Dextromethorphan 10 ml 06/23/22 02:25 Guaif/Dextromethorphan Syrup 10 Ml Udc PO 06/23/23 02:24 Q8H PRN Cough Hydroxyzine Pamoate 50 mg 06/23/22 02:37 07/01/22 22:56 Hydroxyzine Pamoate 50 Mg Capsule PO 06/23/23 02:36 50 mg HS PRN Administration Insomnia Piperacillin Sod/Tazobactam Sod 4.5 gm in 100 mls @ 200 mls/hr 06/28/22 15:45 07/07/22 12:00 Zosyn IV 07/08/22 15:44 Infused Q6H CARL Infusion Insulin Aspart 0 units 06/26/22 08:00 07/07/22 12:29 Insulin Aspart 300 Units/3 Ml Insuln.Pen SUBCUT 06/26/23 07:59 3 units TID.WM.HS CARL Administration Protocol Lact Acid/Bifidobact/Lact [place]/Streptoc Th 1 cap 06/23/22 09:00 07/07/22 09:19 L. Acidophilus/Strept/[place] P[place] 1 Cap Capsule PO 06/23/23 08:59 1 cap DAILY CARL Administration Lactulose 10 gm 06/23/22 09:00 07/07/22 09:19 Lactulose 20 Gm/30 Ml Udc PO 06/23/23 08:59 Not Given BID CARL Levetiracetam 500 mg 06/26/22 21:00 07/07/22 09:19 Levetiracetam 500 Mg Tablet PO 06/26/23 20:59 500 mg BID CARL Administration Levothyroxine Sodium 75 mcg 06/23/22 06:30 07/07/22 09:18 Levothyroxine 75 Mcg Tablet PO 06/23/23 06:29 75 mcg DAILY@0630 CARL Administration Magnesium Hydroxide 15 ml 06/23/22 02:28 Magnesium Hydroxide Susp 30 Ml Udc PO 06/23/23 02:27 BID PRN Constipation Multivitamins 1 tab 06/23/22 09:00 07/07/22 09:19 Multivitamin 1 Tab Tablet PO 06/23/23 08:59 1 tab DAILY CARL Administration Nystatin 1 applic 06/23/22 09:00 07/07/22 09:19 Nystatin 100,000 Unit/Gram Powder 15 Gm Bottle TOPICAL 06/23/23 08:59 1 applic BID CARL Administration Potassium Chloride 40 meq 06/23/22 02:25 Potassium Chloride Er 20 Meq Tab.Er.Prt PO 06/23/23 02:24 DAILY PRN Hypokalemia Sertraline HCl 100 mg 06/23/22 09:00 07/07/22 09:19 Sertraline 100 Mg Tablet PO 06/23/23 08:59 100 mg DAILY CARL Administration Sodium Chloride 0 ml 06/22/22 19:36 07/05/22 12:33 Sodium Chloride 0.9 % 10 Ml Syringe IV-PUSH 06/22/23 19:35 10 ml PRN PRN Administration Flush Sodium Chloride 0 ml 06/23/22 14:00 07/07/22 09:20 Sodium Chloride 0.9 % 10 Ml Syringe IV-PUSH 06/23/23 13:59 Not Given QSHIFT CARL Vitamin D 50 mcg 06/23/22 09:00 07/07/22 09:19 Cholecalciferol 25 Mcg (1,000 Units) Tablet PO 06/23/23 08:59 50 mcg DAILY CARL Administration A&P - Hospitalist Assessment/Plan (1) Acute respiratory failure with hypoxia and hypercapnia: (2) Aspiration pneumonia: (3) Obstructive sleep apnea: (4) Obesity: (5) Seizure: (6) Impaired mobility and ADLs: Plan . Documented By: León Shepherd MD 07/07/221516 Signed By: <Electronically signed by León Shepherd MD> 07/07/22 1519 [facility] Work Phone: [phone]) [phone] Progress note Author León Shepherd [facility] July 06, 2022 1:27pmNote Date/TimeMay 2022 1:27[place] [address] Hospitalist Progress Note Signed Patient: Kelsey Graves MR#: [id number] : 1980 Acct:[id number] Age/Sex: 41 / F Adm Date: 3 Loc: 4P Room: [address] [place] [address] Type: ADM IN Attending Dr: León hSepherd MD Copies to: ~ Date of Service: 07/06/2022 Subjective Subjective Narrative: Patient currently on 4 L oxygen using BiPAP at night. In process for arrangement of BiPAP care home. Pulmonary recommending to continue IV Zosyn till Friday. Assessment And Plan Ms. Graves is a pleasant 41F with PMH of Down Syndrome, DM, Hypothyroidism, pseudoseizures, AVMs, JANET(supposed to be on CPAP), Constipation, MO(BMI > 40) who p/w seizure activity and admitted for the evaluation and treatment Acute hypoxic and hypercapnic respiratory failure, Bacterial pneumonia (possibleaspiration) Pulmonary service recommending to continue Zosyn till and also on oral doxycycline. She has been afebrile and denies excessive cough. Taper oxygen astolerated. She will require walk study prior to discharge. JANET reportedly, her CPAP machine was malfunction at home She has been using BiPAP at nighttime. In process to be arranged for BiPAP machine on discharge by pulmonary service. Reported seizure Reportedly, she had a whole body seizure like activity while having her dinner which lasted for 1 minute and lost consciousness. no postictal period was noted. * EEG shows no definitive epileptiform activity was seen * CT brain shows? no acute intracranial process * TSH wnl, B12 wnl Neurology? was consulted, Samuel was added with outpatient neurology follow-up. No further seizure activity noted. DM sliding scale insulin and accuchecks. hold oral antidiabetic medication/metformin. Blood glucose mostly well controlled Functional impairment Continue PT/OT. Exam Physical Exam Vital Signs: Temp Pulse Resp BP Pulse Ox O2 Del Method O2 Flow Rate 98.3 F 73 20 120/72 93 L Nasal Cannula 4 07/06/22 12:00 07/06/22 12:55 07/06/22 12:55 07/06/22 12:00 07/06/22 12:00 07/06/22 12:00 07/06/22 12:00 FiO2 45 07/06/22 00:32 Const General: cooperative Orientation: alert and awake Resp Effort & Inspection: normal respiratory effort and able to speak in complete sentences Auscultation: no rales, no rhonchi and no wheezes Cardio Rate: regular rate Rhythm: regular rhythm Heart Sounds: S1 normal and S2 normal Neuro General: patient alert, patient awake, moves all extremities and no focal motor deficits Extrem General: no clubbing, cyanosis or edema and no calf tenderness Objective Lab Results 07/01/22 04:55 07/03/22 04:00 Meds Allergies and Active Meds Allergies diazepam Allergy (Verified 06/22/22 19:37) Unknown Reaction Active Meds: Active Medications Generic Name Dose Route Start Last Admin Trade Name Freq PRN Reason Stop Dose Admin Acetaminophen 650 mg 06/23/22 02:25 06/28/22 12:07 Acetaminophen 325 Mg Tablet PO 06/23/23 02:24 650 mg Q6HR PRN Administration Pain Scale 1 - 3 or fever Albuterol/Ipratropium 3 ml 06/23/22 08:00 07/06/22 12:57 Ipratropium/Albuterol 0.5-3 Mg 3 Ml Ampul.Neb INHALATION 06/23/23 07:59 3 ml QID.RESP CARL Administration Ammonium Lactate 1 applic 06/23/22 09:00 07/06/22 08:27 Ammonium Lactate 12% Lot 226 Gm Bottle TOPICAL 06/23/23 08:59 1 applic BID CARL Administration Atorvastatin Calcium 10 mg 06/23/22 22:00 07/05/22 21:09 Atorvastatin 10 Mg Tablet PO 06/23/23 21:59 Not Given HS CARL Calcium Polycarbophil 625 mg 06/23/22 09:00 07/06/22 08:27 Calcium Polycarbophil 625 Mg Tablet PO 06/23/23 08:59 625 mg DAILY CARL Administration Dextrose 0 gm 06/23/22 10:37 Dextrose 50% In Water 25 Gm/50 Ml Syringe IV-PUSH 06/23/23 10:36 PRN PRN Hypoglycemia Doxycycline Hyclate 100 mg 07/04/22 21:00 07/06/22 08:27 Doxycycline Hyclate 100 Mg Tablet PO 07/08/22 23:59 100 mg BID CARL Administration Enoxaparin Sodium 40 mg 06/23/22 10:00 07/06/22 09:05 Enoxaparin 40 Mg/0.4 Ml Syringe SUBCUT 06/23/23 09:59 Not Given DAILY@10 CARL Fluticasone Propionate 1 spray 06/23/22 09:00 07/06/22 08:28 Fluticasone Propionate [place] 120 [place]/16 Gm Bottle INTRANASAL 06/23/23 08:59 1 spray DAILY CARL Administration Glucose 0 gm 06/23/22 10:37 Dextrose 40% Gel 15 Gm Tube PO 06/23/23 10:36 PRN PRN Hypoglycemia Guaifenesin/Dextromethorphan 10 ml 06/23/22 02:25 Guaif/Dextromethorphan Syrup 10 Ml Udc PO 06/23/23 02:24 Q8H PRN Cough Hydroxyzine Pamoate 50 mg 06/23/22 02:37 07/01/22 22:56 Hydroxyzine Pamoate 50 Mg Capsule PO 06/23/23 02:36 50 mg HS PRN Administration Insomnia Piperacillin Sod/Tazobactam Sod 4.5 gm in 100 mls @ 200 mls/hr 06/28/22 15:45 07/06/22 12:50 Zosyn IV 07/08/22 15:44 Infused Q6H CARL Infusion Insulin Aspart 0 units 06/26/22 08:00 07/06/22 12:10 Insulin Aspart 300 Units/3 Ml Insuln.Pen SUBCUT 06/26/23 07:59 Not Given TID.WM.HS CARL Protocol Lact Acid/Bifidobact/Lact [place]/Streptoc Th 1 cap 06/23/22 09:00 07/06/22 08:27 L. Acidophilus/Strept/[place] P[place] 1 Cap Capsule PO 06/23/23 08:59 1 cap DAILY CARL Administration Lactulose 10 gm 06/23/22 09:00 07/06/22 08:28 Lactulose 20 Gm/30 Ml Udc PO 06/23/23 08:59 Not Given BID CARL Levetiracetam 500 mg 06/26/22 21:00 07/06/22 08:31 Levetiracetam 500 Mg Tablet PO 06/26/23 20:59 500 mg BID CARL Administration Levothyroxine Sodium 75 mcg 06/23/22 06:30 07/06/22 06:13 Levothyroxine 75 Mcg Tablet PO 06/23/23 06:29 75 mcg DAILY@0630 CARL Administration Magnesium Hydroxide 15 ml 06/23/22 02:28 Magnesium Hydroxide Susp 30 Ml Udc PO 06/23/23 02:27 BID PRN Constipation Multivitamins 1 tab 06/23/22 09:00 07/06/22 08:27 Multivitamin 1 Tab Tablet PO 06/23/23 08:59 1 tab DAILY CARL Administration Nystatin 1 applic 06/23/22 09:00 07/06/22 08:28 Nystatin 100,000 Unit/Gram Powder 15 Gm Bottle TOPICAL 06/23/23 08:59 1 applic BID CARL Administration Potassium Chloride 40 meq 06/23/22 02:25 Potassium Chloride Er 20 Meq Tab.Er.Prt PO 06/23/23 02:24 DAILY PRN Hypokalemia Sertraline HCl 100 mg 06/23/22 09:00 07/06/22 08:27 Sertraline 100 Mg Tablet PO 06/23/23 08:59 100 mg DAILY CARL Administration Sodium Chloride 0 ml 06/22/22 19:36 07/05/22 12:33 Sodium Chloride 0.9 % 10 Ml Syringe IV-PUSH 06/22/23 19:35 10 ml PRN PRN Administration Flush Sodium Chloride 0 ml 06/23/22 14:00 07/06/22 08:08 Sodium Chloride 0.9 % 10 Ml Syringe IV-PUSH 06/23/23 13:59 Not Given QSHIFT CARL Vitamin D 50 mcg 06/23/22 09:00 07/06/22 08:27 Cholecalciferol 25 Mcg (1,000 Units) Tablet PO 06/23/23 08:59 50 mcg DAILY CARL Administration A&P - Hospitalist Assessment/Plan (1) Acute respiratory failure with hypoxia and hypercapnia: (2) Aspiration pneumonia: (3) Obstructive sleep apnea: (4) Obesity: (5) Seizure: (6) Impaired mobility and ADLs: Plan . Documented By: León Shepherd MD 07/06/221324 Signed By: <Electronically signed by León Shepherd MD> 07/06/221326 [facility] Work Phone: 1([phone]) 279-585405-13-2023 Progress note Author Nabil Holman [facility] July 06, 2022 12:48pmNote Date/TimeMay 2022 12:48[place] [address] Pulmonology Progress Note Signed Patient: Kelsey Graves MR#: [id number] : 1980 Acct:[id number] Age/Sex: 41 / F Adm Date: 3 Loc: Room: [address] [place] [address] Type: ADM IN Attending Dr: León Shepherd MD Copies to: ~ Date of Service: 07/06/2022 Subjective Subjective Narrative: Patient is doing well today, she was fully alert awake sitting upright in bed, very pleasant deniesany breathing difficulties, oxygenating well on 4 L while awake. Hemodynamically stable. Exam Physical Exam Vital Signs: Temp Pulse Resp BP Pulse Ox O2 Del Method O2 Flow Rate 98.3 F 77 20 120/72 93 L Nasal Cannula 4 07/06/22 12:00 07/06/22 12:00 07/06/22 12:00 07/06/22 12:00 07/06/22 12:00 07/06/22 12:00 07/06/22 12:00 FiO2 45 07/06/22 00:32 Narrative: General: Patient was alert awake on nasal cannula this morning during rounds Eyes: Pupils equal round reactive to light HEENT: Normocephalic, atraumatic, oral mucosa moist Neck: Supple no lymphadenopathy or thyromegaly Cardiovascular: S1, S2, normal sounds, no murmurs or gallops noted, regular rhythm Lungs: Diminished breath sounds bilaterally but currently clear to auscultation with occasional basilar rhonchi only Extremities: Improving peripheral edema Neurologic: As detailed above Objective Intake and Output I&O - Last 24 Hours: Intake & Output 07/05/22 07/06/22 07/06/22 23:59 07:59 15:59 Intake Total 550 / 1530 250 / 250 Balance 550 / 1530 250 / 250 Weight 85.7 kg Labs 07/01/22 04:55 07/03/22 04:00 Assessment/Plan Assessment/Plan (1) Obstructive sleep apnea: (2) Pulmonary vascular congestion: (3) Obesity: (4) Acute hypoxemic respiratory failure: (5) Acute and chronic respiratory failure with hypercapnia: (6) Pneumonitis: Plan * Continue current treatment * Plan for discharge Friday with BiPAP arrangement and oxygen Documented By: Nabil Holman MD 07/06/221246 Signed By: <Electronically signed by Nabil Holman MD> 07/06/22 1248 [facility] Work Phone: [phone]) [phone] Progress note Author León Shepherd [facility] July 05, 2022 1:15pmNote Date/TimeMay 2022 1:15pm[place] [address] Hospitalist Progress Note Signed Patient: Kelsey Graves MR#: [id number] : 1980 Acct:[id number] Age/Sex: 41 / F Adm Date: 3 Loc: 4 Room: [address] [place] [address] Type: ADM IN Attending Dr: León Shepherd MD Copies to: ~ Date of Service: 07/05/2022 Subjective Subjective Narrative: And examined was sitting on chair and eating lunch and currently on 4 and half liters oxygen. No overnight event. Process to be arranged for BiPAP on discharge. Pulmonary service recommending continue Zosyn till and patient will be discharged after that. Assessment And Plan Ms. Graves is a pleasant 41F with PMH of Down Syndrome, DM, Hypothyroidism, pseudoseizures, AVMs, JANET(supposed to be on CPAP), Constipation, MO(BMI > 40) who p/w seizure activity and admitted for the evaluation and treatment Acute hypoxic and hypercapnic respiratory failure, Bacterial pneumonia (possibleaspiration) Pulmonary service recommending to continue Zosyn till and also on oral doxycycline. Continue pulmonary toilet and taper oxygen as tolerated. JANET reportedly, her CPAP machine was malfunction at home She has been using BiPAP at nighttime. In process to be arranged for BiPAP machine on discharge by pulmonary service. Reported seizure Reportedly, she had a whole body seizure like activity while having her dinner which lasted for 1 minute and lost consciousness. no postictal period was noted. * EEG shows no definitive epileptiform activity was seen * CT brain shows? no acute intracranial process * TSH wnl, B12 wnl Neurology? was consulted, Samuel was added with outpatient neurology follow-up. No further seizure activity noted. DM sliding scale insulin and accuchecks. hold oral antidiabetic medication/metformin. Blood glucose mostly well controlled Functional impairment Continue PT/OT. Exam Physical Exam Vital Signs: Temp Pulse Resp BP Pulse Ox O2 Del Method O2 Flow Rate 98.2 F 80 20 99/61 L 96 Nasal Cannula 4.5 07/05/22 12:00 07/05/22 12:00 07/05/22 12:00 07/05/22 12:00 07/05/22 12:00 07/05/22 12:00 07/05/22 12:00 FiO2 45 07/05/22 03:00 Const General: cooperative Orientation: alert and awake Other: Currently resting comfortably. Resp Effort & Inspection: normal respiratory effort and able to speak in complete sentences Auscultation: no rales, no rhonchi and no wheezes Cardio Rate: regular rate Rhythm: regular rhythm Heart Sounds: S1 normal and S2 normal Neuro General: patient alert, patient awake, moves all extremities and no focal motor deficits Extrem General: no clubbing, cyanosis or edema and no calf tenderness Objective Lab Results 07/01/22 04:55 07/03/22 04:00 Meds Allergies and Active Meds Allergies diazepam Allergy (Verified 06/22/22 19:37) Unknown Reaction Active Meds: Active Medications Generic Name Dose Route Start Last Admin Trade Name Freq PRN Reason Stop Dose Admin Acetaminophen 650 mg 06/23/22 02:25 06/28/22 12:07 Acetaminophen 325 Mg Tablet PO 06/23/23 02:24 650 mg Q6HR PRN Administration Pain Scale 1 - 3 or fever Albuterol/Ipratropium 3 ml 06/23/22 08:00 07/05/22 10:30 Ipratropium/Albuterol 0.5-3 Mg 3 Ml Ampul.Neb INHALATION 06/23/23 07:59 3 ml QID.RESP CARL Administration Ammonium Lactate 1 applic 06/23/22 09:00 07/05/22 10:31 Ammonium Lactate 12% Lot 226 Gm Bottle TOPICAL 06/23/23 08:59 1 applic BID CARL Administration Atorvastatin Calcium 10 mg 06/23/22 22:00 07/04/22 21:18 Atorvastatin 10 Mg Tablet PO 06/23/23 21:59 10 mg HS CARL Administration Calcium Polycarbophil 625 mg 06/23/22 09:00 07/05/22 10:27 Calcium Polycarbophil 625 Mg Tablet PO 06/23/23 08:59 625 mg DAILY CARL Administration Dextrose 0 gm 06/23/22 10:37 Dextrose 50% In Water 25 Gm/50 Ml Syringe IV-PUSH 06/23/23 10:36 PRN PRN Hypoglycemia Doxycycline Hyclate 100 mg 07/04/22 21:00 07/05/22 10:28 Doxycycline Hyclate 100 Mg Tablet PO 07/08/22 23:59 100 mg BID CARL Administration Enoxaparin Sodium 40 mg 06/23/22 10:00 07/05/22 12:03 Enoxaparin 40 Mg/0.4 Ml Syringe SUBCUT 06/23/23 09:59 40 mg DAILY@10 CARL Administration Fluticasone Propionate 1 spray 06/23/22 09:00 07/05/22 10:32 Fluticasone Propionate [place] 120 [place]/16 Gm Bottle INTRANASAL 06/23/23 08:59 1 spray DAILY CARL Administration Glucose 0 gm 06/23/22 10:37 Dextrose 40% Gel 15 Gm Tube PO 06/23/23 10:36 PRN PRN Hypoglycemia Guaifenesin/Dextromethorphan 10 ml 06/23/22 02:25 Guaif/Dextromethorphan Syrup 10 Ml Udc PO 06/23/23 02:24 Q8H PRN Cough Hydroxyzine Pamoate 50 mg 06/23/22 02:37 07/01/22 22:56 Hydroxyzine Pamoate 50 Mg Capsule PO 06/23/23 02:36 50 mg HS PRN Administration Insomnia Piperacillin Sod/Tazobactam Sod 4.5 gm in 100 mls @ 200 mls/hr 06/28/22 15:45 07/05/22 12:24 Zosyn IV 07/08/22 15:44 200 mls/hr Q6H CARL Administration Insulin Aspart 0 units 06/26/22 08:00 07/05/22 12:35 Insulin Aspart 300 Units/3 Ml Insuln.Pen SUBCUT 06/26/23 07:59 3 units TID.WM.HS CARL Administration Protocol Lact Acid/Bifidobact/Lact [place]/Streptoc Th 1 cap 06/23/22 09:00 07/05/22 10:28 L. Acidophilus/Strept/La P-[place] 1 Cap Capsule PO 06/23/23 08:59 1 cap DAILY CARL Administration Lactulose 10 gm 06/23/22 09:00 07/05/22 10:57 Lactulose 20 Gm/30 Ml Udc PO 06/23/23 08:59 Not Given BID CARL Levetiracetam 500 mg 06/26/22 21:00 07/05/22 10:29 Levetiracetam 500 Mg Tablet PO 06/26/23 20:59 500 mg BID CARL Administration Levothyroxine Sodium 75 mcg 06/23/22 06:30 07/05/22 10:31 Levothyroxine 75 Mcg Tablet PO 06/23/23 06:29 75 mcg DAILY@0630 CARL Administration Magnesium Hydroxide 15 ml 06/23/22 02:28 Magnesium Hydroxide Susp 30 Ml Udc PO 06/23/23 02:27 BID PRN Constipation Multivitamins 1 tab 06/23/22 09:00 07/05/22 10:29 Multivitamin 1 Tab Tablet PO 06/23/23 08:59 1 tab DAILY CARL Administration Nystatin 1 applic 06/23/22 09:00 07/05/22 10:32 Nystatin 100,000 Unit/Gram Powder 15 Gm Bottle TOPICAL 06/23/23 08:59 1 applic BID CARL Administration Potassium Chloride 40 meq 06/23/22 02:25 Potassium Chloride Er 20 Meq Tab.Er.Prt PO 06/23/23 02:24 DAILY PRN Hypokalemia Sertraline HCl 100 mg 06/23/22 09:00 07/05/22 10:28 Sertraline 100 Mg Tablet PO 06/23/23 08:59 100 mg DAILY CARL Administration Sodium Chloride 0 ml 06/22/22 19:36 07/05/22 12:33 Sodium Chloride 0.9 % 10 Ml Syringe IV-PUSH 06/22/23 19:35 10 ml PRN PRN Administration Flush Sodium Chloride 0 ml 06/23/22 14:00 07/05/22 13:04 Sodium Chloride 0.9 % 10 Ml Syringe IV-PUSH 06/23/23 13:59 10 ml QSHIFT CARL Administration Vitamin D 50 mcg 06/23/22 09:00 07/05/22 10:29 Cholecalciferol 25 Mcg (1,000 Units) Tablet PO 06/23/23 08:59 50 mcg DAILY CARL Administration A&P - Hospitalist Assessment/Plan (1) Acute respiratory failure with hypoxia and hypercapnia: (2) Aspiration pneumonia: (3) Obstructive sleep apnea: (4) Obesity: (5) Seizure: (6) Impaired mobility and ADLs: Plan . Documented By: León Shepherd MD 07/05/221311 Signed By: <Electronically signed by León Shepherd MD> 07/05/22 1315 [facility] Work Phone: [phone] 197-721705-12-2023 Progress note Author Nabil Holman [facility] July 05, 2022 12:39pmNote Date/TimeMay 2022 12:[place] [address] Pulmonology Progress Note Signed Patient: Kelsey Graves MR#: [id number] : 1980 Acct:[id number] Age/Sex: 41 / F Adm Date: 3 Loc: Room: [address] [place] [address] Type: ADM IN Attending Dr: León Shepherd MD Copies to: ~ Date of Service: 07/05/2022 Subjective Subjective Narrative: Patient is currently sleeping during rounds today, has not been sleeping well atnight, did not fallasleep until 3 in the morning, respiratory status has remained stable, she was on BiPAP with 4 L atthe time we saw her but she was oxygenating well on 2 L while awake yesterday. Exam Physical Exam Vital Signs: Temp Pulse Resp BP Pulse Ox O2 Del Method O2 Flow Rate 97.5 F L 66 20 119/85 94 L BiPAP 4 07/05/22 08:00 07/05/22 10:35 07/05/22 10:35 07/05/22 08:00 07/05/22 08:00 07/05/22 08:00 07/05/22 08:00 FiO2 45 07/05/22 03:00 Narrative: General: Patient was sleeping on BiPAP at the time we had our rounds this morning Eyes: Pupils equal round reactive to light HEENT: Normocephalic, atraumatic, oral mucosa moist Neck: Supple no lymphadenopathy or thyromegaly Cardiovascular: S1, S2, normal sounds, no murmurs or gallops noted, regular rhythm Lungs: Diminished breath sounds bilaterally but currently clear to auscultation with occasional basilar rhonchi only Extremities: Improving peripheral edema Neurologic: As detailed above Objective Intake and Output I&O - Last 24 Hours: Intake & Output 07/04/22 07/05/22 07/05/22 23:59 07:59 15:59 Intake Total 250 / 900 400 / 400 Balance 250 / 900 400 / 400 Weight 89.2 kg Labs 07/01/22 04:55 07/03/22 04:00 Assessment/Plan Assessment/Plan (1) Obstructive sleep apnea: (2) Pulmonary vascular congestion: (3) Obesity: (4) Acute hypoxemic respiratory failure: (5) Acute and chronic respiratory failure with hypercapnia: (6) Pneumonitis: Plan * Discussed arrangement for BiPAP with current settings as well as oxygen therapy on discharge [facility] [employer] with case management, and with her legal guardian Cassandra * Will complete IV Zosyn by Friday, after that discharge home * Continue with therapy as before * Will continue to follow Documented By: Nabil Holman MD 07/05/22 1236 Signed By: <Electronically signed by Nabil Holman MD> 07/05/22 1239 [facility] Work Phone: [phone] 517-416205-11-2023 Progress note Author León Shepherd [facility] July 04, 2022 2:34pmNote Date/TimeMay 2022 2:34[place] [address] Hospitalist Progress Note Signed Patient: Kelsey Graves MR#: [id number] : 1980 Acct:[id number] Age/Sex: 41 / F Adm Date: 3 Loc: 4 Room: [id number] Type: ADM IN Attending Dr: León Shepherd MD Copies to: ~ Date of Service: 07/04/2022 Subjective Subjective Narrative: Patient examined was sitting on chair with no signs of respiratory distress. On3 and half liters oxygen.She wants to go home but understand the reason to stay in the hospital. She will be completing day 7 of Zosyn today. Assessment And Plan Ms. Graves is a pleasant 41F with PMH of Down Syndrome, DM, Hypothyroidism, pseudoseizures, AVMs, JANET(supposed to be on CPAP), Constipation, MO(BMI > 40) who p/w seizure activity and admitted for the evaluation and treatment Acute hypoxic and hypercapnic respiratory failure, Bacterial pneumonia (possibleaspiration) Continue taper oxygen as tolerated. She will complete day 7 of Zosyn and has been switched to oral doxycycline. Remains afebrile and denies having excessivecough. Continue PT/OT JANET reportedly, her CPAP machine was malfunction at home BiPAP 15/10 at night and as needed was advised Reported seizure Reportedly, she had a whole body seizure like activity while having her dinner which lasted for 1 minute and lost consciousness. no postictal period was noted. * EEG shows no definitive epileptiform activity was seen * CT brain shows? no acute intracranial process * TSH wnl, B12 wnl Neurology? was consulted, Samuel was added with outpatient neurology follow-up. No further seizure activity noted. DM sliding scale insulin and accuchecks. hold oral antidiabetic medication/metformin. Blood glucose mostly well controlled Functional impairment Continue PT/OT. Exam Physical Exam Vital Signs: Temp Pulse Resp BP Pulse Ox O2 Del Method O2 Flow Rate 97.9 F 74 20 108/71 93 L Nasal Cannula 5 07/04/22 11:45 07/04/22 11:45 07/04/22 11:45 07/04/22 11:45 07/04/22 11:45 07/04/22 11:45 07/04/22 09:39 FiO2 45 07/04/22 05:35 Const Orientation: alert and awake Other: Currently resting comfortably. Resp Effort & Inspection: normal respiratory effort and able to speak in complete sentences Auscultation: no rales, no rhonchi and no wheezes Cardio Rate: regular rate Rhythm: regular rhythm Heart Sounds: S1 normal and S2 normal Neuro General: patient alert, patient awake, moves all extremities and no focal motor deficits Extrem General: no clubbing, cyanosis or edema and no calf tenderness Objective Lab Results 07/01/22 04:55 07/03/22 04:00 Meds Allergies and Active Meds Allergies diazepam Allergy (Verified 06/22/22 19:37) Unknown Reaction Active Meds: Active Medications Generic Name Dose Route Start Last Admin Trade Name Freq PRN Reason Stop Dose Admin Acetaminophen 650 mg 06/23/22 02:25 06/28/22 12:07 Acetaminophen 325 Mg Tablet PO 04/29/24 02:24 650 mg Q6HR PRN Administration Pain Scale 1 - 3 or fever Albuterol/Ipratropium 3 ml 06/23/22 08:00 07/04/22 12:50 Ipratropium/Albuterol 0.5-3 Mg 3 Ml Ampul.Neb INHALATION 06/23/23 07:59 NotGiven QID.RESP CARL Ammonium Lactate 1 applic 06/23/22 09:00 07/04/22 08:50 Ammonium Lactate 12% Lot 226 Gm Bottle TOPICAL 06/23/23 08:59 1 applic BID CARL Administration Atorvastatin Calcium 10 mg 06/23/22 22:00 07/03/22 21:38 Atorvastatin 10 Mg Tablet PO 06/23/23 21:59 10 mg HS CARL Administration Calcium Polycarbophil 625 mg 06/23/22 09:00 07/04/22 08:49 Calcium Polycarbophil 625 Mg Tablet PO 06/23/23 08:59 625 mg DAILY CARL Administration Dextrose 0 gm 06/23/22 10:37 Dextrose 50% In Water 25 Gm/50 Ml Syringe IV-PUSH 06/23/23 10:36 PRN PRN Hypoglycemia Doxycycline Hyclate 100 mg 07/04/22 21:00 Doxycycline Hyclate 100 Mg Tablet PO 07/08/22 23:59 BID CARL Enoxaparin Sodium 40 mg 06/23/22 10:00 07/03/22 09:51 Enoxaparin 40 Mg/0.4 Ml Syringe SUBCUT 06/23/23 09:59 40 mg DAILY@10 CARL Administration Fluticasone Propionate 1 spray 06/23/22 09:00 07/04/22 08:50 Fluticasone Propionate [place] 120 [place]/16 Gm Bottle INTRANASAL 06/23/23 08:59 1 spray DAILY CARL Administration Glucose 0 gm 06/23/22 10:37 Dextrose 40% Gel 15 Gm Tube PO 06/23/23 10:36 PRN PRN Hypoglycemia Guaifenesin/Dextromethorphan 10 ml 06/23/22 02:25 Guaif/Dextromethorphan Syrup 10 Ml Udc PO 06/23/23 02:24 Q8H PRN Cough Hydroxyzine Pamoate 50 mg 06/23/22 02:37 07/01/22 22:56 Hydroxyzine Pamoate 50 Mg Capsule PO 06/23/23 02:36 50 mg HS PRN Administration Insomnia Piperacillin Sod/Tazobactam Sod 4.5 gm in 100 mls @ 200 mls/hr 06/28/22 15:45 07/04/22 05:07 Zosyn IV 07/08/22 15:44 200 mls/hr Q6H CARL Administration Insulin Aspart 0 units 06/26/22 08:00 07/04/22 08:50 Insulin Aspart 300 Units/3 Ml Insuln.Pen SUBCUT 06/26/23 07:59 3 units TID.WM.HS CARL Administration Protocol Lact Acid/Bifidobact/Lact [place]/Streptoc Th 1 cap 06/23/22 09:00 07/04/22 08:49 L. Acidophilus/Strept/[place] P-[place] 1 Cap Capsule PO 06/23/23 08:59 1 cap DAILY CARL Administration Lactulose 10 gm 06/23/22 09:00 07/04/22 08:51 Lactulose 20 Gm/30 Ml Udc PO 06/23/23 08:59 Not Given BID CARL Levetiracetam 500 mg 06/26/22 21:00 07/04/22 08:50 Levetiracetam 500 Mg Tablet PO 06/26/23 20:59 500 mg BID CARL Administration Levothyroxine Sodium 75 mcg 06/23/22 06:30 07/04/22 06:59 Levothyroxine 75 Mcg Tablet PO 06/23/23 06:29 75 mcg DAILY@0630 CARL Administration Magnesium Hydroxide 15 ml 06/23/22 02:28 Magnesium Hydroxide Susp 30 Ml Udc PO 06/23/23 02:27 BID PRN Constipation Multivitamins 1 tab 06/23/22 09:00 07/04/22 08:49 Multivitamin 1 Tab Tablet PO 06/23/23 08:59 1 tab DAILY CARL Administration Nystatin 1 applic 06/23/22 09:00 07/04/22 08:50 Nystatin 100,000 Unit/Gram Powder 15 Gm Bottle TOPICAL 06/23/23 08:59 1 applic BID CARL Administration Potassium Chloride 40 meq 06/23/22 02:25 Potassium Chloride Er 20 Meq Tab.Er.Prt PO 06/23/23 02:24 DAILY PRN Hypokalemia Sertraline HCl 100 mg 06/23/22 09:00 07/04/22 08:49 Sertraline 100 Mg Tablet PO 06/23/23 08:59 100 mg DAILY CARL Administration Sodium Chloride 0 ml 06/22/22 19:36 07/04/22 04:00 Sodium Chloride 0.9 % 10 Ml Syringe IV-PUSH 06/22/23 19:35 10 ml PRN PRN Administration Flush Sodium Chloride 0 ml 06/23/22 14:00 07/04/22 05:07 Sodium Chloride 0.9 % 10 Ml Syringe IV-PUSH 06/23/23 13:59 10 ml QSHIFT CARL Administration Vitamin D 50 mcg 06/23/22 09:00 07/04/22 08:49 Cholecalciferol 25 Mcg (1,000 Units) Tablet PO 06/23/23 08:59 50 mcg DAILY CARL Administration A&P - Hospitalist Assessment/Plan (1) Acute respiratory failure with hypoxia and hypercapnia: (2) Aspiration pneumonia: (3) Obstructive sleep apnea: (4) Obesity: (5) Seizure: (6) Impaired mobility and ADLs: Plan . Documented By: León Shepherd MD 07/04/22 143 Signed By: <Electronically signed by León Shepherd MD> 07/04/22 1434 [facility] Work Phone: [phone] Progress note Author Aryan Lindsay [facility] July 04, 2022 11:31amNote Date/TimeMay 2022 10:49[place] [id number] Pulmonology Progress Note Signed Patient: Kelsey Graves MR#: [id number] : 1980 Acct:[id number] Age/Sex: 41 / F Adm Date: 3 Loc: 4 Room: [address] [place] [address] Type: ADM IN Attending Dr: León Shepherd MD Copies to: ~ Date of Service: 07/04/2022 Subjective Subjective Narrative: Patient is in good spirits and is anxious to go home but somewhat less insistent. Exam Physical Exam Vital Signs: Temp Pulse Resp BP Pulse Ox O2 Del Method O2 Flow Rate 97.7 F 67 20 96/65 L 92 L Nasal Cannula 5 07/04/22 04:00 07/04/22 09:38 07/04/22 09:38 07/04/22 04:00 07/04/22 06:33 07/04/22 09:39 07/04/22 09:39 FiO2 45 07/04/22 05:35 Const General: cooperative and no acute distress Nutritional Appearance: obese Orientation: alert and awake HEENT Head: normal to inspection, normocephalic and atraumatic Ears: hearing grossly normal bilaterally and external ears normal Nose: external nose normal Face and sinus: normal facial exam (typical Down's Syndrome facies) Eyes Eyelids: eyelids normal Sclera: sclerae normal Neck Neck: normal visual inspection and no lymphadenopathy Chest Chest palpation & inspection: normal inspection of the chest Resp Effort & Inspection: normal respiratory effort and able to speak in complete sentences Auscultation: crackles, no rhonchi and no wheezes Cardio Rate: regular rate Rhythm: regular rhythm Heart Sounds: S1 normal, S2 normal, no gallops, no murmurs and no rubs GI Inspection: normal to inspection Palpation: soft Rectal Exam: deferred General: deferred Skin General: no rashes or lesions noted (warm and dry) Extrem General: no pedal edema Objective Intake and Output I&O - Last 24 Hours: Intake & Output 07/03/22 07/04/22 07/04/22 23:59 07:59 15:59 Intake Total 700 / 1800 150 / 150 Balance 700 / 1800 150 / 150 Weight 88.5 kg Labs 07/01/22 04:55 07/03/22 04:00 Assessment/Plan Assessment/Plan (1) Acute hypercapnic respiratory failure: (2) Obstructive sleep apnea: (3) Pulmonary vascular congestion: (4) Obesity: (5) Acute hypoxemic respiratory failure: Plan Hospital day #11 for patient admitted for dyspnea with findings of infiltrate onchest x-ray. Patient is improving and we will change doxycycline from IV to p.o. Unfortunately, patient deteriorated onAugmentin and would like to patientto complete at least a 1 week course of Zosyn. She continues to improve. Continue supportive care. Documented By: Aryan Lindsay MD 3 1044 Signed By: <Electronically signed by MD Aryan Lindsay> 07/04/22 7530 [facility] Work Phone: [phone]) 341-194405-10-2023 Progress note Author León Shepherd [facility] July 03, 2022 4:45pmNote Date/TimeMay 2022 4:[place] [address] Hospitalist Progress Note Signed Patient: Kelsey Graves MR#: [id number] : 1980 Acct:[id number] Age/Sex: 41 / F Adm Date: 3 Loc: 4 Room: [address] [place] [address] Type: ADM IN Attending Dr: León Shepherd MD Copies to: ~ Date of Service: 07/03/2022 Subjective Subjective Narrative: Patient examined was sitting eating lunch with no complaint. On 4 L oxygen. Using BiPAP at night. Assessment And Plan Ms. Graves is a pleasant 41F with PMH of Down Syndrome, DM, Hypothyroidism, pseudoseizures, AVMs, JANET(supposed to be on CPAP), Constipation, MO(BMI > 40) who p/w seizure activity and admitted for the evaluation and treatment Acute hypoxic and hypercapnic respiratory failure, Bacterial pneumonia (possibleaspiration) She has been tapered off high flow oxygen currently on 3-4 L oxygen with pulse ox 95%. Pulmonary service on consult to manage respiratory failure. No growth on blood cultures so far. Patient remains on IV Zosyn and doxycycline. Remainsafebrile without leukocytosis JAENT reportedly, her CPAP machine was malfunction at home BiPAP 15/10 at night and as needed was advised Reported seizure Reportedly, she had a whole body seizure like activity while having her dinner which lasted for 1 minute and lost consciousness. no postictal period was noted. * EEG shows no definitive epileptiform activity was seen * CT brain shows? no acute intracranial process * TSH wnl, B12 wnl Neurology? was consulted, Keppra was added with outpatient neurology follow-up. No further seizure activity noted. DM sliding scale insulin and accuchecks. hold oral antidiabetic medication/metformin. We will add basal insulin if glucose remains high. Functional impairment PT/OT recommended Intermediate Facility vs Inpatient Rehab Unit. Continue taper oxygen as tolerated with plan to discharge to residential facility/inpatient rehab once respiratory status is optimized. On Lovenox for DVT prophylaxis. Continue PT/OT Exam Physical Exam Vital Signs: Temp Pulse Resp BP Pulse Ox O2 Del Method O2 Flow Rate 98.0 F 71 18 100/52 L 96 Nasal Cannula 3 07/03/22 15:23 07/03/22 16:03 07/03/22 16:03 07/03/22 15:23 07/03/22 16:00 07/03/22 16:00 07/03/22 16:00 FiO2 45 07/03/22 04:36 Const General: cooperative Orientation: alert and awake Resp Effort & Inspection: normal respiratory effort and able to speak in complete sentences Auscultation: no rales, no rhonchi and no wheezes Cardio Rate: regular rate Rhythm: regular rhythm Heart Sounds: S1 normal and S2 normal Neuro General: patient alert, patient awake, moves all extremities and no focal motor deficits Objective Lab Results 07/01/22 04:55 07/03/22 04:00 Meds Allergies and Active Meds Allergies diazepam Allergy (Verified 06/22/22 19:37) Unknown Reaction Active Meds: Active Medications Generic Name Dose Route Start Last Admin Trade Name Freq PRN Reason Stop Dose Admin Acetaminophen 650 mg 06/23/22 02:25 06/28/22 12:07 Acetaminophen 325 Mg Tablet PO 06/23/23 02:24 650 mg Q6HR PRN Administration Pain Scale 1 - 3 or fever Albuterol/Ipratropium 3 ml 06/23/22 08:00 07/03/22 16:04 Ipratropium/Albuterol 0.5-3 Mg 3 Ml Ampul.Neb INHALATION 06/23/23 07:59 3 ml QID.RESP CARL Administration Ammonium Lactate 1 applic 06/23/22 09:00 07/03/22 09:49 Ammonium Lactate 12% Lot 226 Gm Bottle TOPICAL 06/23/23 08:59 1 applic BID CARL Administration Atorvastatin Calcium 10 mg 06/23/22 22:00 07/02/22 21:07 Atorvastatin 10 Mg Tablet PO 06/23/23 21:59 10 mg HS CARL Administration Calcium Polycarbophil 625 mg 06/23/22 09:00 07/03/22 09:46 Calcium Polycarbophil 625 Mg Tablet PO 06/23/23 08:59 625 mg DAILY CARL Administration Dextrose 0 gm 06/23/22 10:37 Dextrose 50% In Water 25 Gm/50 Ml Syringe IV-PUSH 06/23/23 10:36 PRN PRN Hypoglycemia Enoxaparin Sodium 40 mg 06/23/22 10:00 05/10/23 09:51 Enoxaparin 40 Mg/0.4 Ml Syringe SUBCUT 06/23/23 09:59 40 mg DAILY@10 CARL Administration Fluticasone Propionate 1 spray 06/23/22 09:00 07/03/22 09:51 Fluticasone Propionate [place] 120 [place]/16 Gm Bottle INTRANASAL 06/23/23 08:59 1 spray DAILY CARL Administration Glucose 0 gm 06/23/22 10:37 Dextrose 40% Gel 15 Gm Tube PO 06/23/23 10:36 PRN PRN Hypoglycemia Guaifenesin/Dextromethorphan 10 ml 06/23/22 02:25 Guaif/Dextromethorphan Syrup 10 Ml Udc PO 06/23/23 02:24 Q8H PRN Cough Hydroxyzine Pamoate 50 mg 06/23/22 02:37 07/01/22 22:56 Hydroxyzine Pamoate 50 Mg Capsule PO 06/23/23 02:36 50 mg HS PRN Administration Insomnia Piperacillin Sod/Tazobactam Sod 4.5 gm in 100 mls @ 200 mls/hr 06/28/22 15:45 07/03/22 13:10 Zosyn IV 07/08/22 15:44 200 mls/hr Q6H CARL Administration Doxycycline Hyclate 100 mg in 100 mls @ 100 mls/hr 06/28/22 15:45 07/03/22 06:19 Doxy 100 IV 07/08/22 15:44 Infused Q12H CARL Infusion Insulin Aspart 0 units 06/26/22 08:00 07/03/22 13:20 Insulin Aspart 300 Units/3 Ml Insuln.Pen SUBCUT 06/26/23 07:59 Not Given TID.WM.HS [facility] Protocol Lact Acid/Bifidobact/Lact [place]/Streptoc Th 1 cap 06/23/22 09:00 07/03/22 09:46 L. Acidophilus/Strept/[place] P-[place] 1 Cap Capsule PO 06/23/23 08:59 1 cap DAILY CARL Administration Lactulose 10 gm 06/23/22 09:00 07/03/22 09:49 Lactulose 20 Gm/30 Ml Udc PO 06/23/23 08:59 Not Given BID CARL Levetiracetam 500 mg 06/26/22 21:00 07/03/22 09:46 Levetiracetam 500 Mg Tablet PO 06/26/23 20:59 500 mg BID CARL Administration Levothyroxine Sodium 75 mcg 06/23/22 06:30 07/03/22 06:45 Levothyroxine 75 Mcg Tablet PO 06/23/23 06:29 75 mcg DAILY@0630 CARL Administration Magnesium Hydroxide 15 ml 06/23/22 02:28 Magnesium Hydroxide Susp 30 Ml Udc PO 06/23/23 02:27 BID PRN Constipation Multivitamins 1 tab 06/23/22 09:00 07/03/22 09:46 Multivitamin 1 Tab Tablet PO 06/23/23 08:59 1 tab DAILY CARL Administration Nystatin 1 applic 06/23/22 09:00 07/03/22 09:51 Nystatin 100,000 Unit/Gram Powder 15 Gm Bottle TOPICAL 06/23/23 08:59 1 applic BID CARL Administration Potassium Chloride 40 meq 06/23/22 02:25 Potassium Chloride Er 20 Meq Tab.Er.Prt PO 06/23/23 02:24 DAILY PRN Hypokalemia Sertraline HCl 100 mg 06/23/22 09:00 07/03/22 09:46 Sertraline 100 Mg Tablet PO 06/23/23 08:59 100 mg DAILY CARL Administration Sodium Chloride 0 ml 06/22/22 19:36 06/30/22 17:06 Sodium Chloride 0.9 % 10 Ml Syringe IV-PUSH 06/22/23 19:35 20 ml PRN PRN Administration Flush Sodium Chloride 0 ml 06/23/22 14:00 07/03/22 13:20 Sodium Chloride 0.9 % 10 Ml Syringe IV-PUSH 06/23/23 13:59 10 ml QSHIFT CARL Administration Vitamin D 50 mcg 06/23/22 09:00 07/03/22 09:46 Cholecalciferol 25 Mcg (1,000 Units) Tablet PO 06/23/23 08:59 50 mcg DAILY CARL Administration A&P - Hospitalist Assessment/Plan (1) Acute respiratory failure with hypoxia and hypercapnia: (2) Aspiration pneumonia: (3) Obstructive sleep apnea: (4) Obesity: (5) Seizure: (6) Impaired mobility and ADLs: Plan . Documented By: León Shepherd MD 07/03/22 8629 Signed By: <Electronically signed by León Shepherd MD> 07/03/22 1645 [facility] Work Phone: [phone] Progress note Author Aryan Lindsay [facility] July 03, 2022 11:14amNote Date/TimeMay 2022 11:14[place] [address] Pulmonology Progress Note Signed Patient: Kelsey Graves MR#: [id number] : 1980 Acct:[id number] Age/Sex: 41 / F Adm Date: 3 Loc: Room: [address] [place] [address] Type: ADM IN Attending Dr: León Shepherd MD Copies to: ~ Date of Service: 07/03/2022 Exam Physical Exam Vital Signs: Temp Pulse Resp BP Pulse Ox O2 Del Method O2 Flow Rate 98.1 F 86 20 122/74 90 L Nasal Cannula 4 07/03/22 08:25 07/03/22 08:27 07/03/22 08:27 07/03/22 08:25 07/03/22 08:25 07/03/22 08:25 07/03/22 08:25 FiO2 45 07/03/22 04:36 Const General: cooperative and no acute distress Nutritional Appearance: obese Orientation: alert and awake HEENT Head: normal to inspection, normocephalic and atraumatic Ears: hearing grossly normal bilaterally and external ears normal Nose: external nose normal Face and sinus: normal facial exam (typical Down's Syndrome facies) Eyes Eyelids: eyelids normal Sclera: sclerae normal Neck Neck: normal visual inspection and no lymphadenopathy Chest Chest palpation & inspection: normal inspection of the chest Resp Effort & Inspection: normal respiratory effort and able to speak in complete sentences Auscultation: crackles, no rhonchi and no wheezes Cardio Rate: regular rate Rhythm: regular rhythm Heart Sounds: S1 normal, S2 normal, no gallops, no murmurs and no rubs GI Inspection: normal to inspection Palpation: soft Rectal Exam: deferred General: deferred Skin General: no rashes or lesions noted (warm and dry) Extrem General: no pedal edema Objective Intake and Output I&O - Last 24 Hours: Intake & Output 07/02/22 07/03/22 07/03/22 23:59 07:59 15:59 Intake Total 850 / 1950 200 / 200 Balance 850 / 1950 200 / 200 Weight 90.2 kg Labs 07/01/22 04:55 07/03/22 04:00 Assessment/Plan Assessment/Plan (1) Acute hypercapnic respiratory failure: (2) Obstructive sleep apnea: (3) Pulmonary vascular congestion: (4) Obesity: (5) Acute hypoxemic respiratory failure: Plan Hospital day #10 for patient admitted for dyspnea with findings of infiltrate onchest x-ray. Patient has been weaned down to supplemental oxygen and was ambulating in the room with her walker with the assistance of physical therapy. She continues to be anxious to go home. However, given the patient's deterioration 5 days ago while on Augmentin I feel that I need to complete the full course of Zosyn with patient also on doxycycline. We will repeat a chest x- ray tomorrow. Otherwise have no new recommendations. Documented By: Aryan Lindsay MD 3 1113 Signed By: <Electronically signed by MD Aryan Lindsay> 07/03/22 1114 [facility] Work Phone: [phone]) [phone] Progress note Author Aryan Lindsay [facility] July 02, 2022 4:53pmNote Date/TimeMay 2022 10:31[place] [id number] Pulmonology Progress Note Signed Patient: Kelsey Graves MR#: [id number] : 1980 Acct:[id number] Age/Sex: 41 / F Adm Date: 3 Loc: Room: [address] [place] [address] Type: ADM IN Attending Dr: León Shepherd MD Copies to: ~ Date of Service: 07/02/2022 Subjective Subjective Narrative: Patient has been weaned to nasal cannula oxygen and had near syncopal episode while walking in the lang. Exam Physical Exam Vital Signs: Temp Pulse Resp BP Pulse Ox O2 Del Method O2 Flow Rate 98.2 F 75 20 98/49 L 94 L Nasal Cannula 3 07/02/22 07:48 07/02/22 08:40 07/02/22 08:40 07/02/22 07:48 07/02/22 07:48 07/02/22 08:40 07/02/22 08:40 FiO2 45 07/02/22 01:00 Const General: cooperative and no acute distress Nutritional Appearance: obese Orientation: alert and awake HEENT Head: normal to inspection, normocephalic and atraumatic Ears: hearing grossly normal bilaterally and external ears normal Nose: external nose normal Face and sinus: normal facial exam (typical Down's Syndrome facies) Eyes Eyelids: eyelids normal Sclera: sclerae normal Neck Neck: normal visual inspection and no lymphadenopathy Chest Chest palpation & inspection: normal inspection of the chest Resp Effort & Inspection: normal respiratory effort and able to speak in complete sentences Auscultation: crackles, no rhonchi and no wheezes Cardio Rate: regular rate Rhythm: regular rhythm Heart Sounds: S1 normal, S2 normal, no gallops, no murmurs and no rubs GI Inspection: normal to inspection Palpation: soft Rectal Exam: deferred General: deferred Skin General: no rashes or lesions noted (warm and dry) Extrem General: no pedal edema Objective Intake and Output I&O - Last 24 Hours: Intake & Output 07/01/22 07/02/22 07/02/22 23:59 07:59 15:59 Intake Total 500 / 1740 100 / 100 Balance 500 / 1737 100 / 100 Weight 90.6 kg Labs 07/01/22 04:55 07/02/22 03:47 Assessment/Plan Assessment/Plan (1) Acute hypercapnic respiratory failure: (2) Obstructive sleep apnea: (3) Pulmonary vascular congestion: (4) Obesity: (5) Acute hypoxemic respiratory failure: Plan Hospital day #9 for patient admitted for dyspnea with findings of infiltrate on chest x-ray. Patient has been weaned down to supplemental oxygen and again reiterates her desire to go home. She continues on Zosyn and doxycycline which were broadened from prior Augmentin on June 28, 2022 due to worsening hypoxemia. I would recommend continuing therapy with plan of 10 days total of antibiotics and will repeat chest x-ray. Documented By: Aryan Lindsay MD 3 1030 Signed By: <Electronically signed by MD Aryan Lindsay> 07/02/22 [facility]8 [facility] Work Phone: 1(775) [phone] Progress note Author León Shepherd [facility] July 02, 2022 2:52pmNote Date/TimeMay 2022 2:[address] [address] Hospitalist Progress Note Signed Patient: Kelsey Graves MR#: [id number] : 1980 Acct:[id number] Age/Sex: 41 / F Adm Date: 3 Loc: 4 Room: [address] [place] [address] Type: ADM IN Attending Dr: León Shepherd MD Copies to: ~ Date of Service: 07/02/2022 Subjective Subjective Narrative: Patient examined was sitting on chair and currently on 3 L oxygen via nasal cannula. Case discussedwith legal guardian at bedside. Assessment And Plan Ms. Graves is a pleasant 41F with PMH of Down Syndrome, DM, Hypothyroidism, pseudoseizures, AVMs, JANET(supposed to be on CPAP), Constipation, MO(BMI > 40) who p/w seizure activity and admitted for the evaluation and treatment Acute hypoxic and hypercapnic respiratory failure, Bacterial pneumonia (possibleaspiration) She has been tapered off high flow oxygen currently on 3 L oxygen with pulse ox 95%. Pulmonary service on consult to manage respiratory failure. No growth on blood cultures so far. Patient remains onIV Zosyn and doxycycline. JANET reportedly, her CPAP machine was malfunction at home BiPAP 15/10 at night and as needed was advised Reported seizure Reportedly, she had a whole body seizure like activity while having her dinner which lasted for 1 minute and lost consciousness. no postictal period was noted. * EEG shows no definitive epileptiform activity was seen * CT brain shows? no acute intracranial process * TSH wnl, B12 wnl Neurology? was consulted, Samuel was added with outpatient neurology follow-up DM blood sugars were reviewed sliding scale insulin and accuchecks. hold oral antidiabetic medication/metformin. We will add basal insulin if glucose remains high. Functional impairment PT/OT recommended Intermediate Facility vs Inpatient Rehab Unit. Continue taper oxygen as tolerated with plan to discharge to residential facility/inpatient rehab once respiratory status is optimized. On Lovenox for DVT prophylaxis. Continue PT/OT Exam Physical Exam Vital Signs: Temp Pulse Resp BP Pulse Ox O2 Del Method O2 Flow Rate 97.5 F L 78 20 104/69 94 L Nasal Cannula 4 07/02/22 11:40 07/02/22 12:00 07/02/22 12:00 07/02/22 11:40 07/02/22 11:40 07/02/22 11:41 07/02/22 11:41 FiO2 45 07/02/22 01:00 Const General: cooperative Other: Currently resting comfortably. Resp Effort & Inspection: normal respiratory effort and able to speak in complete sentences Auscultation: no rales, no rhonchi and no wheezes Cardio Rate: regular rate Rhythm: regular rhythm Heart Sounds: S1 normal and S2 normal Neuro General: moves all extremities and no focal motor deficits Objective Lab Results 07/01/22 04:55 07/02/22 03:47 Meds Allergies and Active Meds Allergies diazepam Allergy (Verified 06/22/22 19:37) Unknown Reaction Active Meds: Active Medications Generic Name Dose Route Start Last Admin Trade Name Freq PRN Reason Stop Dose Admin Acetaminophen 650 mg 06/23/22 02:25 06/28/22 12:07 Acetaminophen 325 Mg Tablet PO 06/23/23 02:24 650 mg Q6HR PRN Administration Pain Scale 1 - 3 or fever Albuterol/Ipratropium 3 ml 06/23/22 08:00 07/02/22 12:09 Ipratropium/Albuterol 0.5-3 Mg 3 Ml Ampul.Neb INHALATION 06/23/23 07:59 3 ml QID.RESP CARL Administration Ammonium Lactate 1 applic 06/23/22 09:00 07/02/22 09:00 Ammonium Lactate 12% Lot 226 Gm Bottle TOPICAL 06/23/23 08:59 1 applic BID CARL Administration Atorvastatin Calcium 10 mg 06/23/22 22:00 07/01/22 22:56 Atorvastatin 10 Mg Tablet PO 06/23/23 21:59 10 mg HS CARL Administration Calcium Polycarbophil 625 mg 06/23/22 09:00 07/02/22 09:00 Calcium Polycarbophil 625 Mg Tablet PO 06/23/23 08:59 Not Given DAILY CARL Dextrose 0 gm 06/23/22 10:37 Dextrose 50% In Water 25 Gm/50 Ml Syringe IV-PUSH 06/23/23 10:36 PRN PRN Hypoglycemia Enoxaparin Sodium 40 mg 06/23/22 10:00 07/02/22 09:00 Enoxaparin 40 Mg/0.4 Ml Syringe SUBCUT 06/23/23 09:59 40 mg DAILY@10 CARL Administration Fluticasone Propionate 1 spray 06/23/22 09:00 07/02/22 08:59 Fluticasone Propionate [place] 120 [place]/16 Gm Bottle INTRANASAL 06/23/23 08:59 1 spray DAILY CARL Administration Glucose 0 gm 06/23/22 10:37 Dextrose 40% Gel 15 Gm Tube PO 06/23/23 10:36 PRN PRN Hypoglycemia Guaifenesin/Dextromethorphan 10 ml 06/23/22 02:25 Guaif/Dextromethorphan Syrup 10 Ml Udc PO 06/23/23 02:24 Q8H PRN Cough Hydroxyzine Pamoate 50 mg 06/23/22 02:37 07/01/22 22:56 Hydroxyzine Pamoate 50 Mg Capsule PO 06/23/23 02:36 50 mg HS PRN Administration Insomnia Piperacillin Sod/Tazobactam Sod 4.5 gm in 100 mls @ 200 mls/hr 06/28/22 15:45 07/02/22 12:27 Zosyn IV 07/08/22 15:44 Infused Q6H CARL Infusion Doxycycline Hyclate 100 mg in 100 mls @ 100 mls/hr 06/28/22 15:45 07/02/22 04:13 Doxy 100 IV 07/08/22 15:44 100 mls/hr Q12H CALR Administration Insulin Aspart 0 units 06/26/22 08:00 07/02/22 11:42 Insulin Aspart 300 Units/3 Ml Insuln.Pen SUBCUT 06/26/23 07:59 Not Given TID.WM.HS [facility] Protocol Lact Acid/Bifidobact/Lact [place]/Streptoc Th 1 cap 06/23/22 09:00 07/02/22 08:59 L. Acidophilus/Strept/La P-Dav[place] 1 Cap Capsule PO 06/23/23 08:59 1 cap DAILY CARL Administration Lactulose 10 gm 06/23/22 09:00 07/02/22 09:00 Lactulose 20 Gm/30 Ml Udc PO 06/23/23 08:59 Not Given BID CARL Levetiracetam 500 mg 06/26/22 21:00 07/02/22 08:59 Levetiracetam 500 Mg Tablet PO 06/26/23 20:59 500 mg BID CARL Administration Levothyroxine Sodium 75 mcg 06/23/22 06:30 07/02/22 06:15 Levothyroxine 75 Mcg Tablet PO 06/23/23 06:29 75 mcg DAILY@0630 CARL Administration Magnesium Hydroxide 15 ml 06/23/22 02:28 Magnesium Hydroxide Susp 30 Ml Udc PO 06/23/23 02:27 BID PRN Constipation Multivitamins 1 tab 06/23/22 09:00 07/02/22 09:00 Multivitamin 1 Tab Tablet PO 06/23/23 08:59 1 tab DAILY CARL Administration Nystatin 1 applic 06/23/22 09:00 07/02/22 08:59 Nystatin 100,000 Unit/Gram Powder 15 Gm Bottle TOPICAL 06/23/23 08:59 1 applic BID CARL Administration Oxycodone/Acetaminophen 1 tab 06/23/22 02:25 Oxycodone/Acetaminophen 5-325 Mg Tablet PO Q4H PRN Pain Scale 4 - 7 Potassium Chloride 40 meq 06/23/22 02:25 Potassium Chloride Er 20 Meq Tab.Er.Prt PO 06/23/23 02:24 DAILY PRN Hypokalemia Sertraline HCl 100 mg 06/23/22 09:00 07/02/22 09:00 Sertraline 100 Mg Tablet PO 06/23/23 08:59 100 mg DAILY CARL Administration Sodium Chloride 0 ml 06/22/22 19:36 06/30/22 17:06 Sodium Chloride 0.9 % 10 Ml Syringe IV-PUSH 06/22/23 19:35 20 ml PRN PRN Administration Flush Sodium Chloride 0 ml 06/23/22 14:00 07/02/22 13:28 Sodium Chloride 0.9 % 10 Ml Syringe IV-PUSH 06/23/23 13:59 10 ml QSHIFT CARL Administration Vitamin D 50 mcg 06/23/22 09:00 07/02/22 09:00 Cholecalciferol 25 Mcg (1,000 Units) Tablet PO 06/23/23 08:59 50 mcg DAILY CARL Administration A&P - Hospitalist Assessment/Plan (1) Acute respiratory failure with hypoxia and hypercapnia: (2) Aspiration pneumonia: (3) Obstructive sleep apnea: (4) Obesity: (5) Seizure: (6) Impaired mobility and ADLs: Plan . Documented By: León Shepherd MD 07/02/22 1447 Signed By: <Electronically signed by León Shepherd MD> 07/02/22 1454 [facility] Work Phone: [phone]) [phone] Progress note Author León Shepherd [facility] July 01, 2022 1:24pmNote Date/TimeMay 2022 1:24[place] [address] Hospitalist Progress Note Signed Patient: Kelsey Graves MR#: [id number] : 1980 Acct:[id number] Age/Sex: 41 / F Adm Date: 3 Loc: Room: [address] [place] [address] Type: ADM IN Attending Dr: León Shepherd MD Copies to: ~ Date of Service: 07/01/2022 Subjective Subjective Narrative: Patient examined at bedside as she just walked back from restroom. Remains on high flow oxygen at 30 L and 45% FiO2. Does not appear significantly tachypneicwhile walking back to the chair. Seen by pulmonary service with discussion regarding bronchoscopy with her power of assistant district attorney. Assessment And Plan Ms. Graves is a pleasant 41F with PMH of Down Syndrome, DM, Hypothyroidism, pseudoseizures, AVMs, JANET(supposed to be on CPAP), Constipation, MO(BMI > 40) whop/w seizure activity and admitted for the evaluation and treatment Acute hypoxic and hypercapnic respiratory failure, Bacterial pneumonia (possibleaspiration) Patient requiring high flow oxygen due to significant hypoxia. Currently on doxycycline and Zosyn with no growth on blood cultures so far. Titrate oxygen as tolerated. Respiratory failure being managed by pulmonary service with discussion regarding bronchoscopy with power of assistant district attorney. JANET reportedly, her CPAP machine was malfunction at home BiPAP 15/10 at night and as needed was advised Reported seizure reportedly, she had a whole body seizure like activity while having her dinner which lasted for 1 minute and lost consciousness. no postictal period was noted. * EEG shows no definitive epileptiform activity was seen * CT brain shows? no acute intracranial process * TSH wnl, B12 wnl Neurology? was consulted, Samuel was added with outpatient neurology follow-up DM blood sugars were reviewed sliding scale insulin and accuchecks. hold oral antidiabetic medication/metformin. We will add basal insulin if glucose remains high. Functional impairment PT/OT recommended Intermediate Facility vs Inpatient Rehab Unit Exam Physical Exam Vital Signs: Temp Pulse Resp BP Pulse Ox O2 Del Method O2 Flow Rate 98.5 F 74 20 106/61 94 L High Flow 30 07/01/22 12:00 07/01/22 12:09 07/01/22 12:09 07/01/22 12:00 07/01/22 12:09 07/01/22 12:00 07/01/22 12:09 FiO2 45 07/01/22 12:09 Const General: cooperative Orientation: alert and awake Resp Effort & Inspection: normal respiratory effort and able to speak in complete sentences Auscultation: no rales, no rhonchi and no wheezes Cardio Rate: regular rate Rhythm: regular rhythm Heart Sounds: S1 normal and S2 normal Neuro General: patient alert, patient awake, moves all extremities and no focal motor deficits Objective Lab Results 07/01/22 04:55 07/01/22 04:55 Meds Allergies and Active Meds Allergies diazepam Allergy (Verified 06/22/22 19:37) Unknown Reaction Active Meds: Active Medications Generic Name Dose Route Start Last Admin Trade Name Freq PRN Reason Stop Dose Admin Acetaminophen 650 mg 06/23/22 02:25 06/28/22 12:07 Acetaminophen 325 Mg Tablet PO 06/23/23 02:24 650 mg Q6HR PRN Administration Pain Scale 1 - 3 or fever Albuterol/Ipratropium 3 ml 06/23/22 08:00 07/01/22 12:01 Ipratropium/Albuterol 0.5-3 Mg 3 Ml Ampul.Neb INHALATION 06/23/23 07:59 3 ml QID.RESP CARL Administration Ammonium Lactate 1 applic 06/23/22 09:00 07/01/22 09:09 Ammonium Lactate 12% Lot 226 Gm Bottle TOPICAL 06/23/23 08:59 1 applic BID CARL Administration Atorvastatin Calcium 10 mg 06/23/22 22:00 06/30/22 22:30 Atorvastatin 10 Mg Tablet PO 06/23/23 21:59 10 mg HS CARL Administration Calcium Polycarbophil 625 mg 06/23/22 09:00 07/01/22 09:08 Calcium Polycarbophil 625 Mg Tablet PO 06/23/23 08:59 625 mg DAILY CARL Administration Dextrose 0 gm 06/23/22 10:37 Dextrose 50% In Water 25 Gm/50 Ml Syringe IV-PUSH 06/23/23 10:36 PRN PRN Hypoglycemia Enoxaparin Sodium 40 mg 06/23/22 10:00 07/01/22 09:09 Enoxaparin 40 Mg/0.4 Ml Syringe SUBCUT 06/23/23 09:59 40 mg DAILY@10 CARL Administration Fluticasone Propionate 1 spray 06/23/22 09:00 07/01/22 09:08 Fluticasone Propionate [place] 120 [place]/16 Gm Bottle INTRANASAL 06/23/23 08:59 1 spray DAILY CARL Administration Glucose 0 gm 06/23/22 10:37 Dextrose 40% Gel 15 Gm Tube PO 06/23/23 10:36 PRN PRN Hypoglycemia Guaifenesin/Dextromethorphan 10 ml 06/23/22 02:25 Guaif/Dextromethorphan Syrup 10 Ml Udc PO 06/23/23 02:24 Q8H PRN Cough Hydroxyzine Pamoate 50 mg 06/23/22 02:37 06/29/22 21:30 Hydroxyzine Pamoate 50 Mg Capsule PO 06/23/23 02:36 50 mg HS PRN Administration Insomnia Piperacillin Sod/Tazobactam Sod 4.5 gm in 100 mls @ 200 mls/hr 06/28/22 15:45 07/01/22 12:22 Zosyn IV 200 mls/hr Q6H CARL Administration Doxycycline Hyclate 100 mg in 100 mls @ 100 mls/hr 06/28/22 15:45 07/01/22 04:16 Doxy 100 IV 100 mls/hr Q12H CALR Administration Insulin Aspart 0 units 06/26/22 08:00 07/01/22 12:22 Insulin Aspart 300 Units/3 Ml Insuln.Pen SUBCUT 06/26/23 07:59 7 units TID.WM.HS CARL Administration Protocol Lact Acid/Bifidobact/Lact [place]/Streptoc Th 1 cap 06/23/22 09:00 07/01/22 09:08 L. Acidophilus/Strept/[place] P-[place] 1 Cap Capsule PO 06/23/23 08:59 1 cap DAILY CARL Administration Lactulose 10 gm 06/23/22 09:00 07/01/22 09:08 Lactulose 20 Gm/30 Ml Udc PO 06/23/23 08:59 Not Given BID CARL Levetiracetam 500 mg 06/26/22 21:00 07/01/22 09:08 Levetiracetam 500 Mg Tablet PO 06/26/23 20:59 500 mg BID CARL Administration Levothyroxine Sodium 75 mcg 06/23/22 06:30 07/01/22 06:41 Levothyroxine 75 Mcg Tablet PO 06/23/23 06:29 75 mcg DAILY@0630 CARL Administration Magnesium Hydroxide 15 ml 06/23/22 02:28 Magnesium Hydroxide Susp 30 Ml Udc PO 06/23/23 02:27 BID PRN Constipation Multivitamins 1 tab 06/23/22 09:00 07/01/22 09:08 Multivitamin 1 Tab Tablet PO 06/23/23 08:59 1 tab DAILY CARL Administration Nystatin 1 applic 06/23/22 09:00 07/01/22 09:08 Nystatin 100,000 Unit/Gram Powder 15 Gm Bottle TOPICAL 06/23/23 08:59 1 applic BID CARL Administration Oxycodone/Acetaminophen 1 tab 06/23/22 02:25 Oxycodone/Acetaminophen 5-325 Mg Tablet PO Q4H PRN Pain Scale 4 - 7 Potassium Chloride 40 meq 06/23/22 02:25 Potassium Chloride Er 20 Meq Tab.Er.Prt PO 06/23/23 02:24 DAILY PRN Hypokalemia Sertraline HCl 100 mg 06/23/22 09:00 07/01/22 09:08 Sertraline 100 Mg Tablet PO 06/23/23 08:59 100 mg DAILY CARL Administration Sodium Chloride 0 ml 06/22/22 19:36 06/30/22 17:06 Sodium Chloride 0.9 % 10 Ml Syringe IV-PUSH 06/22/23 19:35 20 ml PRN PRN Administration Flush Sodium Chloride 0 ml 06/23/22 14:00 07/01/22 06:10 Sodium Chloride 0.9 % 10 Ml Syringe IV-PUSH 06/23/23 13:59 10 ml QSHIFT CARL Administration Vitamin D 50 mcg 06/23/22 09:00 07/01/22 09:08 Cholecalciferol 25 Mcg (1,000 Units) Tablet PO 06/23/23 08:59 50 mcg DAILY CARL Administration A&P - Hospitalist Assessment/Plan (1) Acute respiratory failure with hypoxia and hypercapnia: (2) Aspiration pneumonia: (3) Obstructive sleep apnea: (4) Obesity: (5) Seizure: (6) Impaired mobility and ADLs: Plan . Documented By: León Shepherd MD 07/01/22 1319 Signed By: <Electronically signed by León Shepherd MD> 07/01/22 1324 [facility] Work Phone: [phone]) 950-567305-07-2023 Progress note Author Tiesha De [facility] June 30, 2022 5:32pmNote Date/TimeMay 2022 5:12[place] [address] Hospitalist Progress Note Signed Patient: Kelsey Graves MR#: [id number] : 1980 Acct:[id number] Age/Sex: 41 / F Adm Date: 3 Loc: Room: [address] [place] [address] Type: ADM IN Attending Dr: Tiesha De MD Copies to: ~ Date of Service: 06/30/2022 Subjective Subjective Narrative: Assessment And Plan Ms. Graves is a pleasant 41F with PMH of Down Syndrome, DM, Hypothyroidism, pseudoseizures, AVMs, JANET(supposed to be on CPAP), Constipation, MO(BMI > 40) who p/w seizure activity and admitted for the evaluation and treatment Acute hypoxic and hypercapnic respiratory failure, Bacterial pneumonia (possibleaspiration) She is high flow O2, afebrile, no chest pain She was found to be hypoxic in the ED. no leukocytosis or fever on admission * ABG shows hypercapnia * COVID-19 / Flu A/B / RSV PCR negative * CT chest 06/23 shows Diffuse ground glass parenchymal densities and mild basilar pleural-parenchymal changes. Minimal pleural effusions. * Blood Cx? negative Pulmonary was consulted. She was started on Zosyn IV and azithromycin then switched to oral Augmentin. On 06/28, she was discharged with 5L Home O2 to inpatient rehab. However, at the rehab she was found to have hypoxia with spO2 70% and she was placed on NRB then BiPAP. The discharge was canceled and she returned back to her room in progressive. broad spectrum Abx was restarted. Agree with escalating Abx to Zosyn IV and doxycycline Agree with diuresis Pulmonary recommendation appreciated JANET reportedly, her CPAP machine was malfunction at home BiPAP 15/10 at night and as needed was advised Reported seizure reportedly, she had a whole body seizure like activity while having her dinner which lasted for 1 minute and lost consciousness. no postictal period was noted. * EEG shows no definitive epileptiform activity was seen * CT brain shows? no acute intracranial process * TSH wnl, B12 wnl Neurology? was consulted, Samuel was added DM blood sugars were reviewed sliding scale insulin and accuchecks. hold oral antidiabetic medication/metformin. Functional impairment PT/OT recommended Intermediate Facility vs Inpatient Rehab Unit INTERVAL HPI: As Above, Pt resting in bed. feeling the same no new complaint . remain on high flow O2 Chronic diseases: Unless mentioned Above, Essential home medications have been continued. DVT Px: Addressed Disposition: rehab once better Plan of care Discussed with: the medical team Exam Physical Exam Vital Signs: Temp Pulse Resp BP Pulse Ox O2 Del Method O2 Flow Rate 36.8 C 76 20 101/61 95 High Flow 40 06/30/22 16:00 06/30/22 16:19 06/30/22 16:19 06/30/22 16:00 06/30/22 16:19 06/30/22 16:19 06/30/22 16:19 FiO2 45 06/30/22 16:19 Narrative: GEN: NAD, Cooperative LUNGS: minimal scattered bilateral rhonchi CV: nl S1 S2; no M/R/G ABD: Soft, ND, NT NEURO: move all her extremities; no overt focal neurological deficits Objective Lab Results 06/28/22 18:54 06/28/22 18:54 Meds Allergies and Active Meds Allergies diazepam Allergy (Verified 06/22/22 19:37) Unknown Reaction Active Meds: Active Medications Generic Name Dose Route Start Last Admin Trade Name Freq PRN Reason Stop Dose Admin Acetaminophen 650 mg 06/23/22 02:25 06/28/22 12:07 Acetaminophen 325 Mg Tablet PO 06/23/23 02:24 650 mg Q6HR PRN Administration Pain Scale 1 - 3 or fever Albuterol/Ipratropium 3 ml 06/23/22 08:00 06/30/22 16:19 Ipratropium/Albuterol 0.5-3 Mg 3 Ml Ampul.Neb INHALATION 06/23/23 07:59 3 ml QID.RESP CARL Administration Ammonium Lactate 1 applic 06/23/22 09:00 06/30/22 08:17 Ammonium Lactate 12% Lot 226 Gm Bottle TOPICAL 06/23/23 08:59 1 applic BID CARL Administration Atorvastatin Calcium 10 mg 06/23/22 22:00 06/29/22 21:30 Atorvastatin 10 Mg Tablet PO 06/23/23 21:59 10 mg HS CARL Administration Calcium Polycarbophil 625 mg 06/23/22 09:00 06/30/22 08:17 Calcium Polycarbophil 625 Mg Tablet PO 06/23/23 08:59 625 mg DAILY CARL Administration Dextrose 0 gm 06/23/22 10:37 Dextrose 50% In Water 25 Gm/50 Ml Syringe IV-PUSH 06/23/23 10:36 PRN PRN Hypoglycemia Enoxaparin Sodium 40 mg 06/23/22 10:00 06/30/22 10:57 Enoxaparin 40 Mg/0.4 Ml Syringe SUBCUT 06/23/23 09:59 40 mg DAILY@10 CARL Administration Fluticasone Propionate 1 spray 06/23/22 09:00 06/30/22 08:17 Fluticasone Propionate [place] 120 [place]/16 Gm Bottle INTRANASAL 06/23/23 08:59 1 spray DAILY CARL Administration Glucose 0 gm 06/23/22 10:37 Dextrose 40% Gel 15 Gm Tube PO 06/23/23 10:36 PRN PRN Hypoglycemia Guaifenesin/Dextromethorphan 10 ml 06/23/22 02:25 Guaif/Dextromethorphan Syrup 10 Ml Udc PO 06/23/23 02:24 Q8H PRN Cough Hydroxyzine Pamoate 50 mg 06/23/22 02:37 06/29/22 21:30 Hydroxyzine Pamoate 50 Mg Capsule PO 06/23/23 02:36 50 mg HS PRN Administration Insomnia Piperacillin Sod/Tazobactam Sod 4.5 gm in 100 mls @ 200 mls/hr 06/28/22 15:45 06/30/22 17:05 Zosyn IV 200 mls/hr Q6H CARL Administration Doxycycline Hyclate 100 mg in 100 mls @ 100 mls/hr 06/28/22 15:45 06/30/22 16:04 Doxy 100 IV Infused Q12H CARL Infusion Insulin Aspart 0 units 06/26/22 08:00 06/30/22 17:05 Insulin Aspart 300 Units/3 Ml Insuln.Pen SUBCUT 06/26/23 07:59 3 units TID.WM.HS CARL Administration Protocol Lact Acid/Bifidobact/Lact [place]/Streptoc Th 1 cap 06/23/22 09:00 06/30/22 08:17 L. Acidophilus/Strept/La P-Davonte 1 Cap Capsule PO 06/23/23 08:59 1 cap DAILY CARL Administration Lactulose 10 gm 06/23/22 09:00 06/30/22 08:17 Lactulose 20 Gm/30 Ml Udc PO 06/23/23 08:59 Not Given BID CARL Levetiracetam 500 mg 06/26/22 21:00 06/30/22 08:17 Levetiracetam 500 Mg Tablet PO 06/26/23 20:59 500 mg BID CARL Administration Levothyroxine Sodium 75 mcg 06/23/22 06:30 06/30/22 05:42 Levothyroxine 75 Mcg Tablet PO 06/23/23 06:29 75 mcg DAILY@0630 CARL Administration Magnesium Hydroxide 15 ml 06/23/22 02:28 Magnesium Hydroxide Susp 30 Ml Udc PO 06/23/23 02:27 BID PRN Constipation Multivitamins 1 tab 06/23/22 09:00 06/30/22 08:17 Multivitamin 1 Tab Tablet PO 06/23/23 08:59 1 tab DAILY CARL Administration Nystatin 1 applic 06/23/22 09:00 06/30/22 08:17 Nystatin 100,000 Unit/Gram Powder 15 Gm Bottle TOPICAL 06/23/23 08:59 1 applic BID CARL Administration Oxycodone/Acetaminophen 1 tab 06/23/22 02:25 Oxycodone/Acetaminophen 5-325 Mg Tablet PO Q4H PRN Pain Scale 4 - 7 Potassium Chloride 40 meq 06/23/22 02:25 Potassium Chloride Er 20 Meq Tab.Er.Prt PO 06/23/23 02:24 DAILY PRN Hypokalemia Sertraline HCl 100 mg 06/23/22 09:00 06/30/22 08:16 Sertraline 100 Mg Tablet PO 06/23/23 08:59 100 mg DAILY CARL Administration Sodium Chloride 0 ml 06/22/22 19:36 06/30/22 17:06 Sodium Chloride 0.9 % 10 Ml Syringe IV-PUSH 06/22/23 19:35 20 ml PRN PRN Administration Flush Sodium Chloride 0 ml 06/23/22 14:00 06/30/22 15:05 Sodium Chloride 0.9 % 10 Ml Syringe IV-PUSH 06/23/23 13:59 20 ml QSHIFT CARL Administration Vitamin D 50 mcg 06/23/22 09:00 06/30/22 08:16 Cholecalciferol 25 Mcg (1,000 Units) Tablet PO 06/23/23 08:59 50 mcg DAILY CARL Administration A&P - Hospitalist Assessment/Plan (1) Acute respiratory failure with hypoxia and hypercapnia: (2) Aspiration pneumonia: (3) Obstructive sleep apnea: (4) Obesity: (5) Seizure: (6) Impaired mobility and ADLs: Plan . Documented By: Tiesha De MD 06/30/221711 Signed By: <Electronically signed by Tiesha De MD> 06/30/221731 [facility] Work Phone: [phone] Progress note Author Aryan Lindsay [facility] June 30, 2022 12:31pmNote Date/TimeMay 2022 11:10[place] [address] Pulmonology Progress Note Signed Patient: Kelsey Graves MR#: [id number] : 1980 Acct:[id number] Age/Sex: 41 / F Adm Date: 3 Loc: Room: [address] [place] [address] Type: ADM IN Attending Dr: Tiesha De MD Copies to: ~ Date of Service: 06/30/2022 Subjective Subjective Narrative: Patient continues on BiPAP nocturnally and high flow nasal cannula of 40 L/min and 50% FiO2. She otherwise has been stable. Power of assistant district attorney is at bedside at the time of my visit. Exam Physical Exam Vital Signs: Temp Pulse Resp BP Pulse Ox O2 Del Method O2 Flow Rate 99.0 F 86 26 H 130/83 93 L High Flow 40 06/30/22 08:07 06/30/22 08:20 06/30/22 08:20 06/30/22 08:07 06/30/22 08:07 06/30/22 08:20 06/30/22 08:07 FiO2 50 06/30/22 08:07 Const General: cooperative and no acute distress Nutritional Appearance: obese Orientation: alert and awake HEENT Head: normal to inspection, normocephalic and atraumatic Ears: hearing grossly normal bilaterally and external ears normal Nose: external nose normal Face and sinus: normal facial exam (typical Down's Syndrome facies) Eyes Eyelids: eyelids normal Sclera: sclerae normal Neck Neck: normal visual inspection and no lymphadenopathy Chest Chest palpation & inspection: normal inspection of the chest Resp Effort & Inspection: normal respiratory effort and able to speak in complete sentences Auscultation: crackles, no rhonchi and no wheezes Cardio Rate: regular rate Rhythm: regular rhythm Heart Sounds: S1 normal, S2 normal, no gallops, no murmurs and no rubs GI Inspection: normal to inspection Palpation: soft Rectal Exam: deferred General: deferred Skin General: no rashes or lesions noted (warm and dry) Extrem General: no pedal edema Objective Intake and Output I&O - Last 24 Hours: Intake & Output 06/29/22 06/30/22 06/30/22 23:59 07:59 15:59 Intake Total 700 / 1900 100 / 100 Output Total 750 / 2675 425 / 425 Balance -50 / -775 -325 / -325 Weight 91.8 kg Labs 06/28/22 18:54 06/28/22 18:54 Assessment/Plan Assessment/Plan (1) Acute hypercapnic respiratory failure: (2) Obstructive sleep apnea: (3) Pulmonary vascular congestion: (4) Obesity: (5) Acute hypoxemic respiratory failure: Plan Hospital day #8 for patient admitted for dyspnea with findings of infiltrate on chest x-ray. She has improved but now is declined and on high flow nasal cannula during the day and BiPAP at night. Patient did get some diuretics with minimal improvement. We will repeat chest x-ray tomorrow as well asobtain chemistries and complete blood count and may consider further diuresis. Patientremains on Zosyn and doxycycline. Discussed with the power of assistant district attorney concernsfor bronchoscopy and respiratory failure requiring intubation in the patient's present state as I believe that with any sedation she will have significant obstructive sleep apnea. Continue supportive care with repeat chest x-ray in the morning. Documented By: Aryan Lindsay MD 3 [id number] Signed By: <Electronically signed by MD Aryan Lindsay> 06/30/22 1231 [facility] Work Phone: [phone] Progress note Author Tiesha De [facility] June 29, 2022 6:19pmNote Date/TimeMay 2022 5:43[place] [address] Hospitalist Progress Note Signed Patient: Kelsey Graves MR#: [id number] : 1980 Acct:[id number] Age/Sex: 41 / F Adm Date: 3 Loc: 4P Room: [address] [place] [address] Type: ADM IN Attending Dr: Tiesha De MD Copies to: ~ Date of Service: 06/29/2022 Subjective Subjective Narrative: Assessment And Plan Ms. Graves is a pleasant 41F with PMH of Down Syndrome, DM, Hypothyroidism, pseudoseizures, AVMs, JANET(suppose to be on CPAP), Constipation, MO(BMI > 40) whop/w seizure activity and admitted for theevaluation and treatment Acute hypoxic and hypercapnic respiratory failure, Bacterial pneumonia (possibleaspiration) She is high flow O2, afebrile She was found to be hypoxic in the ED. no leukocytosis or fever on admission * ABG shows hypercapnia * COVID-19 / Flu A/B / RSV PCR negative * CT chest 06/23 shows Diffuse ground glass parenchymal densities and mild basilar pleural-parenchymal changes. Minimal pleural effusions. * Blood Cx? negative Pulmonary? was consulted. She was started on Zosyn IV and azithromycin? then switched to oral Augmentin. on 06/28 she was discharge on 5L Home O2 to inpatientrehab. however at the rehab she was found to by hypoxia spO2 70% and she was placed on NRB then BiPAP. the discharge was canceled and she returned back to her room in progressive. board spectrum Abx was restarted. Agree with escalating Abx to Zosyn IV and doxycycline Agree with diuresis Pulmonary recommendation appreciated JANET reportedly, her CPAP machine was malfunction at home BiPAP 15/10 at night and as needed was advised Reported seizure reportedl,y she had a whole body seizure like activity while having her dinner which lasted for 1 minute and lost consciousness. no postictal period was noted. * EEG shows no definitive epileptiform activity was seen * CT brain shows? no acute intracranial process * TSH wnl, B12 wnl Neurology? was consulted, Samuel was added DM blood sugars were reviewed sliding scale insulin and accuchecks. hold oral antidiabetic medication/metformin. Functional impairment PT/OT recommended Intermediate Facility vs Inpatient Rehab Unit INTERVAL HPI: As Above, Pt resting in bed. increase O2 demand not improving as expected. Denies anypain ask for her Sim to be removed Chronic diseases: Unless mentioned Above, Essential home medications have been continued. DVT Px: Addressed Disposition: awaiting rehab approval Plan of care Discussed with: the medical team Exam Physical Exam Vital Signs: Temp Pulse Resp BP Pulse Ox O2 Del Method O2 Flow Rate 36.8 C 90 20 117/73 90 L High Flow 40 06/29/22 15:34 06/29/22 16:56 06/29/22 16:56 06/29/22 15:34 06/29/22 16:50 06/29/22 16:00 06/29/22 16:50 FiO2 50 06/29/22 16:50 Narrative: GEN: NAD, Cooperative LUNGS: minimal scattered bilateral rhonchi CV: nl S1 S2; no M/R/G ABD: Soft, ND, NT, can't access any mass or hepatosplenomegaly due to increase abdominal girth due to obesity NEURO: move all her extremities; no overt focal neurological deficits Objective Lab Results 06/28/22 18:54 06/28/22 18:54 Meds Allergies and Active Meds Allergies diazepam Allergy (Verified 06/22/22 19:37) Unknown Reaction Active Meds: Active Medications Generic Name Dose Route Start Last Admin Trade Name Manuela PRN Reason Stop Dose Admin Acetaminophen 650 mg 06/23/22 02:25 06/28/22 12:07 Acetaminophen 325 Mg Tablet PO 06/23/23 02:24 650 mg Q6HR PRN Administration Pain Scale 1 - 3 or fever Albuterol/Ipratropium 3 ml 06/23/22 08:00 06/29/22 16:48 Ipratropium/Albuterol 0.5-3 Mg 3 Ml Ampul.Neb INHALATION 06/23/23 07:59 3 ml QID.RESP CARL Administration Ammonium Lactate 1 applic 06/23/22 09:00 06/29/22 11:10 Ammonium Lactate 12% Lot 226 Gm Bottle TOPICAL 06/23/23 08:59 1 applic BID CARL Administration Atorvastatin Calcium 10 mg 06/23/22 22:00 06/28/22 21:22 Atorvastatin 10 Mg Tablet PO 06/23/23 21:59 10 mg HS CARL Administration Calcium Polycarbophil 625 mg 06/23/22 09:00 06/29/22 08:42 Calcium Polycarbophil 625 Mg Tablet PO 06/23/23 08:59 625 mg DAILY CARL Administration Dextrose 0 gm 06/23/22 10:37 Dextrose 50% In Water 25 Gm/50 Ml Syringe IV-PUSH 06/23/23 10:36 PRN PRN Hypoglycemia Enoxaparin Sodium 40 mg 06/23/22 10:00 06/29/22 11:11 Enoxaparin 40 Mg/0.4 Ml Syringe SUBCUT 06/23/23 09:59 40 mg DAILY@10 CARL Administration Fluticasone Propionate 1 spray 06/23/22 09:00 06/29/22 11:11 Fluticasone Propionate [place] 120 [place]/16 Gm Bottle INTRANASAL 06/23/23 08:59 1 spray DAILY CARL Administration Glucose 0 gm 06/23/22 10:37 Dextrose 40% Gel 15 Gm Tube PO 06/23/23 10:36 PRN PRN Hypoglycemia Guaifenesin/Dextromethorphan 10 ml 06/23/22 02:25 Guaif/Dextromethorphan Syrup 10 Ml Udc PO 06/23/23 02:24 Q8H PRN Cough Hydroxyzine Pamoate 50 mg 06/23/22 02:37 06/27/22 21:32 Hydroxyzine Pamoate 50 Mg Capsule PO 06/23/23 02:36 50 mg HS PRN Administration Insomnia Piperacillin Sod/Tazobactam Sod 4.5 gm in 100 mls @ 200 mls/hr 06/28/22 15:45 06/29/22 17:02 Zosyn IV 200 mls/hr Q6H CARL Administration Doxycycline Hyclate 100 mg in 100 mls @ 100 mls/hr 06/28/22 15:45 06/29/22 16:03 Doxy 100 IV Infused Q12H CARL Infusion Insulin Aspart 0 units 06/26/22 08:00 06/29/22 17:03 Insulin Aspart 300 Units/3 Ml Insuln.Pen SUBCUT 06/26/23 07:59 4 units TID.WM.HS CARL Administration Protocol Lact Acid/Bifidobact/Lact [place]/Streptoc Th 1 cap 06/23/22 09:00 06/29/22 08:42 L. Acidophilus/Strept/La P-[place] 1 Cap Capsule PO 06/23/23 08:59 1 cap DAILY CARL Administration Lactulose 10 gm 06/23/22 09:00 06/29/22 09:34 Lactulose 20 Gm/30 Ml Udc PO 06/23/23 08:59 Not Given BID CARL Levetiracetam 500 mg 06/26/22 21:00 06/29/22 08:43 Levetiracetam 500 Mg Tablet PO 06/26/23 20:59 500 mg BID CARL Administration Levothyroxine Sodium 75 mcg 06/23/22 06:30 06/29/22 06:04 Levothyroxine 75 Mcg Tablet PO 06/23/23 06:29 75 mcg DAILY@0630 CARL Administration Magnesium Hydroxide 15 ml 06/23/22 02:28 Magnesium Hydroxide Susp 30 Ml Udc PO 06/23/23 02:27 BID PRN Constipation Multivitamins 1 tab 06/23/22 09:00 06/29/22 08:43 Multivitamin 1 Tab Tablet PO 06/23/23 08:59 1 tab DAILY CARL Administration Nystatin 1 applic 06/23/22 09:00 06/29/22 11:11 Nystatin 100,000 Unit/Gram Powder 15 Gm Bottle TOPICAL 06/23/23 08:59 1 applic BID CARL Administration Oxycodone/Acetaminophen 1 tab 06/23/22 02:25 Oxycodone/Acetaminophen 5-325 Mg Tablet PO Q4H PRN Pain Scale 4 - 7 Potassium Chloride 40 meq 06/23/22 02:25 Potassium Chloride Er 20 Meq Tab.Er.Prt PO 06/23/23 02:24 DAILY PRN Hypokalemia Sertraline HCl 100 mg 06/23/22 09:00 06/29/22 08:43 Sertraline 100 Mg Tablet PO 06/23/23 08:59 100 mg DAILY CARL Administration Sodium Chloride 0 ml 06/22/22 19:36 06/29/22 12:44 Sodium Chloride 0.9 % 10 Ml Syringe IV-PUSH 06/22/23 19:35 20 ml PRN PRN Administration Flush Sodium Chloride 0 ml 06/23/22 14:00 06/29/22 15:04 Sodium Chloride 0.9 % 10 Ml Syringe IV-PUSH 06/23/23 13:59 10 ml QSHIFT CARL Administration Vitamin D 50 mcg 06/23/22 09:00 06/29/22 08:41 Cholecalciferol 25 Mcg (1,000 Units) Tablet PO 06/23/23 08:59 50 mcg DAILY CARL Administration A&P - Hospitalist Assessment/Plan (1) Acute respiratory failure with hypoxia and hypercapnia: (2) Aspiration pneumonia: (3) Obstructive sleep apnea: (4) Obesity: (5) Seizure: (6) Impaired mobility and ADLs: Plan . Documented By: Tiesha De MD 06/29/22 1734 Signed By: <Electronically signed by Tiesha De MD> 06/29/22 1819 [facility] Work Phone: [phone] Progress note Author Aryan Lindsay [facility] June 29, 2022 3:29pmNote Date/TimeMay 2022 8:28[place] [address] Pulmonology Progress Note Signed Patient: Kelsey Graves MR#: [id number] : 1980 Acct:[id number] Age/Sex: 41 / F Adm Date: 3 Loc: Room: [address] [place] [address] Type: ADM IN Attending Dr: Tiesha De MD Copies to: ~ Date of Service: 06/29/2022 Subjective Subjective Narrative: Patient has been stable overnight and was changed from BiPAP to 6 L nasal cannula with marginal oxygenation. Patient does not appear to have significantly increased work of breathing. Exam Physical Exam Vital Signs: Temp Pulse Resp BP Pulse Ox O2 Del Method O2 Flow Rate 98.3 F 66 18 136/79 94 L BiPAP 40 06/29/22 04:00 06/29/22 07:40 06/29/22 07:40 06/29/22 07:40 06/29/22 07:40 06/29/22 07:40 06/28/22 19:38 FiO2 40 06/29/22 07:40 Const General: cooperative and no acute distress Nutritional Appearance: obese Orientation: alert and awake HEENT Head: normal to inspection, normocephalic and atraumatic Ears: hearing grossly normal bilaterally and external ears normal Nose: external nose normal Face and sinus: normal facial exam (typical Down's Syndrome facies) Eyes Eyelids: eyelids normal Sclera: sclerae normal Neck Neck: normal visual inspection and no lymphadenopathy Chest Chest palpation & inspection: normal inspection of the chest Resp Effort & Inspection: normal respiratory effort and able to speak in complete sentences Auscultation: crackles, no rhonchi and no wheezes Cardio Rate: regular rate Rhythm: regular rhythm Heart Sounds: S1 normal, S2 normal, no gallops, no murmurs and no rubs GI Inspection: normal to inspection Palpation: soft Rectal Exam: deferred General: deferred Skin General: no rashes or lesions noted (warm and dry) Extrem General: no pedal edema Objective Intake and Output I&O - Last 24 Hours: Intake & Output 06/28/22 06/29/22 06/29/22 23:59 07:59 15:59 Intake Total 250 / 900 100 / 100 Output Total 1200 / 1200 625 / 625 Balance -950 / -300 -525 / -525 Weight 91.9 kg Labs 06/28/22 18:54 06/28/22 18:54 Imaging and Cardiology Chest x-ray: Status: image reviewed by me (Allowing for technique, I actually believe that there has been slightworsening of the patient's chest x-ray.) Additional comments: Date of Service: 06/29/22 XR/XR chest 1V portable: worsening pneumonia ? SINGLE VIEW CHEST CLINICAL HISTORY:? Worsening pneumonia. COMPARISON:? Chest 06/28/2022 FINDINGS: Heart and mediastinal structures appear unchanged.? Degree of bilateral airspacedisease is grossly unchanged.? No free air. XR/XR chest 1V portable IMPRESSION: ? NO SIGNIFICANT CHANGE IN CHEST FINDINGS. ? Assessment/Plan Assessment/Plan (1) Acute hypercapnic respiratory failure: (2) Obstructive sleep apnea: (3) Pulmonary vascular congestion: (4) Obesity: (5) Acute hypoxemic respiratory failure: Plan Hospital day #7 for patient admitted for dyspnea with findings of infiltrate on chest x-ray. Chest x-ray reveals worsening infiltrate yesterday with progression today. Antibiotics were broadened to Zosyn and doxycycline and patient had Sim catheter placed with plan for at least 1 dose of diureticwithdiuresis of almost 1 liter over last 24 hours. We will remove Sim catheter due to patient comp laint after the second dose of diuretic. Continue broadened antibiotics and supportive care. Documented By: Aryan Lindsay MD 3 0826 Signed By: <Electronically signed by MD Aryan Lindsay> 06/29/22 1529 [facility] Work Phone: [phone] Progress note Author Tiesha De [facility] June 29, 2022 1:03amNote Date/TimeMay 2022 3:[place] [address] Hospitalist Progress Note Signed Patient: Kelsey Graves MR#: [id number] : 1980 Acct:[id number] Age/Sex: 41 / F Adm Date: 3 Loc: Room: [address] [place] [address] Type: ADM IN Attending Dr: Tiesha De MD Copies to: ~ Date of Service: 06/28/2022 Subjective Subjective Narrative: Assessment And Plan Acute hypoxic and hypercapnic respiratory failure, Possible CAP vs Aspiration pneumonia, the patient was discharged to rehab today but at rehab she was spO2 70% and she was placed on NRB then BiPAP. when i came to evaluated her she denies any chest pain she was on BiPAP FiO2 40% and [id number]%. the rehab staff was concerning about having patient on BiPAP during the day the discharge was canceled and she will return to her room Exam Physical Exam Vital Signs: Temp Pulse Resp BP Pulse Ox O2 Del Method O2 Flow Rate 37.0 C 80 18 120/72 93 L Nasal Cannula 6 06/28/22 12:00 06/28/22 12:00 06/28/22 12:00 06/28/22 12:00 06/28/22 12:00 06/28/22 12:00 06/28/22 12:00 FiO2 40 06/28/22 03:18 Narrative: GEN: NAD, Cooperative LUNGS: minimal scattered bilateral rhonchi ,normal respiratory effort CV: nl S1 S2; no M/R/G ABD: Soft, ND, NT, can't access any mass or hepatosplenomegaly due to increase abdominal girth due to obesity NEURO: move all her extremities; no overt focal neurological deficits Objective Lab Results 06/24/22 05:18 06/24/22 05:18 Microbiology Results Microbiology 06/22/22 20:48 Blood - Right Hand Blood Culture - Final NO GROWTH 5 DAYS 06/22/22 19:42 Blood - Left Hand Blood Culture - Final NO GROWTH 5 DAYS Meds Allergies and Active Meds Allergies diazepam Allergy (Verified 06/22/22 19:37) Unknown Reaction Active Meds: Active Medications Generic Name Dose Route Start Last Admin Trade Name Freq PRN Reason Stop Dose Admin Acetaminophen 650 mg 06/23/22 02:25 06/28/22 12:07 Acetaminophen 325 Mg Tablet PO 06/23/23 02:24 650 mg Q6HR PRN Administration Pain Scale 1 - 3 or fever Albuterol/Ipratropium 3 ml 06/23/22 08:00 06/28/22 11:34 Ipratropium/Albuterol 0.5-3 Mg 3 Ml Ampul.Neb INHALATION 06/23/23 07:59 3 ml QID.RESP CARL Administration Ammonium Lactate 1 applic 06/23/22 09:00 06/28/22 08:23 Ammonium Lactate 12% Lot 226 Gm Bottle TOPICAL 06/23/23 08:59 1 applic BID CARL Administration Amoxicillin/Clavulanate Potassium 1 tab 06/26/22 21:00 06/28/22 08:22 Amoxicillin/Clav 875-125 Mg Tablet PO 07/02/22 23:59 1 tab BID CARL Administration Atorvastatin Calcium 10 mg 06/23/22 22:00 06/27/22 21:29 Atorvastatin 10 Mg Tablet PO 06/23/23 21:59 10 mg HS CARL Administration Calcium Polycarbophil 625 mg 06/23/22 09:00 06/28/22 08:22 Calcium Polycarbophil 625 Mg Tablet PO 06/23/23 08:59 625 mg DAILY CARL Administration Dextrose 0 gm 06/23/22 10:37 Dextrose 50% In Water 25 Gm/50 Ml Syringe IV-PUSH 06/23/23 10:36 PRN PRN Hypoglycemia Enoxaparin Sodium 40 mg 06/23/22 10:00 06/28/22 10:26 Enoxaparin 40 Mg/0.4 Ml Syringe SUBCUT 06/23/23 09:59 40 mg DAILY@10 CARL Administration Fluticasone Propionate 1 spray 06/23/22 09:00 06/28/22 08:23 Fluticasone Propionate [place] 120 [place]/16 Gm Bottle INTRANASAL 06/23/23 08:59 1 spray DAILY CARL Administration Glucose 0 gm 06/23/22 10:37 Dextrose 40% Gel 15 Gm Tube PO 06/23/23 10:36 PRN PRN Hypoglycemia Guaifenesin/Dextromethorphan 10 ml 06/23/22 02:25 Guaif/Dextromethorphan Syrup 10 Ml Udc PO 06/23/23 02:24 Q8H PRN Cough Hydroxyzine Pamoate 50 mg 06/23/22 02:37 06/27/22 21:32 Hydroxyzine Pamoate 50 Mg Capsule PO 06/23/23 02:36 50 mg HS PRN Administration Insomnia Insulin Aspart 0 units 06/26/22 08:00 06/28/22 12:19 Insulin Aspart 300 Units/3 Ml Insuln.Pen SUBCUT 06/26/23 07:59 4 units TID.WM.HS CARL Administration Protocol Lact Acid/Bifidobact/Lact [place]/Streptoc Th 1 cap 06/23/22 09:00 06/28/22 08:22 L. Acidophilus/Strept/[place] P-[place] 1 Cap Capsule PO 06/23/23 08:59 1 cap DAILY CARL Administration Lactulose 10 gm 06/23/22 09:00 06/28/22 08:23 Lactulose 20 Gm/30 Ml Udc PO 06/23/23 08:59 Not Given BID CARL Levetiracetam 500 mg 06/26/22 21:00 06/28/22 08:22 Levetiracetam 500 Mg Tablet PO 06/26/23 20:59 500 mg BID CARL Administration Levothyroxine Sodium 75 mcg 06/23/22 06:30 06/28/22 06:27 Levothyroxine 75 Mcg Tablet PO 06/23/23 06:29 75 mcg DAILY@0630 CARL Administration Magnesium Hydroxide 15 ml 06/23/22 02:28 Magnesium Hydroxide Susp 30 Ml Udc PO 06/23/23 02:27 BID PRN Constipation Multivitamins 1 tab 06/23/22 09:00 06/28/22 08:22 Multivitamin 1 Tab Tablet PO 06/23/23 08:59 1 tab DAILY CARL Administration Nystatin 1 applic 06/23/22 09:00 06/28/22 08:23 Nystatin 100,000 Unit/Gram Powder 15 Gm Bottle TOPICAL 06/23/23 08:59 1 applic BID CARL Administration Oxycodone/Acetaminophen 1 tab 06/23/22 02:25 Oxycodone/Acetaminophen 5-325 Mg Tablet PO Q4H PRN Pain Scale 4 - 7 Potassium Chloride 40 meq 06/23/22 02:25 Potassium Chloride Er 20 Meq Tab.Er.Prt PO 06/23/23 02:24 DAILY PRN Hypokalemia Sertraline HCl 100 mg 06/23/22 09:00 06/28/22 08:22 Sertraline 100 Mg Tablet PO 06/23/23 08:59 100 mg DAILY CARL Administration Sodium Chloride 0 ml 06/22/22 19:36 06/22/22 23:20 Sodium Chloride 0.9 % 10 Ml Syringe IV-PUSH 06/22/23 19:35 10 ml PRN PRN Administration Flush Sodium Chloride 0 ml 06/23/22 14:00 06/28/22 06:27 Sodium Chloride 0.9 % 10 Ml Syringe IV-PUSH 06/23/23 13:59 10 ml QSHIFT CARL Administration Vitamin D 50 mcg 06/23/22 09:00 06/28/22 08:22 Cholecalciferol 25 Mcg (1,000 Units) Tablet PO 06/23/23 08:59 50 mcg DAILY CARL Administration A&P - Hospitalist Assessment/Plan (1) Obstructive sleep apnea: (2) Obesity: (3) Acute respiratory failure with hypoxia and hypercapnia: (4) Seizure: (5) Aspiration pneumonia: (6) Impaired mobility and ADLs: Plan . Documented By: Tiesha De MD 06/28/22 1517 Signed By: <Electronically signed by Tiesha De MD> 06/29/22 0103 [facility] Work Phone: [phone]) 246-537705-05-2023 Progress note Author Aryan Lindsay [facility] June 28, 2022 3:40pmNote Date/TimeMay 2022 11:55[place] [id number] Pulmonology Progress Note Signed Patient: Kelsey Graves MR#: [id number] : 1980 Acct:[id number] Age/Sex: 41 / F Adm Date: 3 Loc: 4P Room: [address] [place] [address] Type: ADM IN Attending Dr: Tiesha De MD Copies to: ~ Date of Service: 06/28/2022 Subjective Subjective Narrative: Reassessment on patient who is being monitored on the step down unit for persistent hypoxia. Still without leukocytosis or fever. Patient states her breathing feels ok, does note she has some nasal congestion. Exam Physical Exam Vital Signs: Temp Pulse Resp BP Pulse Ox O2 Del Method O2 Flow Rate 98.7 F 67 18 121/78 98 Nasal Cannula 5 06/28/22 08:00 06/28/22 08:00 06/28/22 08:00 06/28/22 08:00 06/28/22 08:00 06/28/22 08:00 06/28/22 08:00 FiO2 40 06/28/22 03:18 Const General: cooperative and no acute distress Nutritional Appearance: obese Orientation: alert and awake HEENT Head: normal to inspection, normocephalic and atraumatic Ears: hearing grossly normal bilaterally and external ears normal Nose: external nose normal Face and sinus: normal facial exam (typical Down's Syndrome facies) Eyes Eyelids: eyelids normal Sclera: sclerae normal Neck Neck: normal visual inspection and no lymphadenopathy Chest Chest palpation & inspection: normal inspection of the chest Resp Effort & Inspection: normal respiratory effort and able to speak in complete sentences Auscultation: crackles, no rhonchi and no wheezes Cardio Rate: regular rate Rhythm: regular rhythm Heart Sounds: S1 normal, S2 normal, no gallops, no murmurs and no rubs GI Inspection: normal to inspection Palpation: soft Rectal Exam: deferred General: deferred Skin General: no rashes or lesions noted (warm and dry) Extrem General: no pedal edema Objective Intake and Output I&O - Last 24 Hours: Intake & Output 06/27/22 06/28/22 06/28/22 23:59 07:59 15:59 Intake Total 700 / 1600 100 / 100 Balance 700 / 1600 100 / 100 Weight 91.3 kg Labs 06/24/22 05:18 06/24/22 05:18 Microbiology Micro: Microbiology 06/22/22 20:48 Blood Culture - Final Blood - Right Hand NO GROWTH 5 DAYS 06/22/22 19:42 Blood Culture - Final Blood - Left Hand NO GROWTH 5 DAYS Imaging and Cardiology Chest x-ray: Status: image reviewed by me Additional comments: Date of Service: 06/28/22 XR/XR chest 2V*: Persistent hypoxia ? Chest 2 views CLINICAL HISTORY: Cough, persistent hypoxia COMPARISON: Chest 06/22/2022 FINDINGS: Heart appears normal in size. Worsening bilateral airspace disease. No pneumothorax or free air. Small bilateral pleural effusions. XR/XR chest 2V* IMPRESSION: ? WORSENING BILATERAL AIRSPACE DISEASE WHEN COMPARED TO THE PRIOR STUDY. ? Assessment/Plan Assessment/Plan (1) Acute hypercapnic respiratory failure: (2) Obstructive sleep apnea: (3) Pulmonary vascular congestion: (4) Obesity: (5) Acute hypoxemic respiratory failure: Plan Reassessment on a patient who is on hospital day 6 for evaluation of difficulty breathing. Patient is still requiring 5 L NC O2, but remains afebrile and hemodynamically stable. Etiology of increasedoxygen demand is unclear given patients clinical improvement overall. No imaging has been done since intake we will add on another x-ray for today. We will continue to follow this patient. Hospital day #6 for patient admitted for dyspnea with findings of infiltrate on chest x-ray. Patient had been transitioned to Augmentin and appeared to be stable. Case discussed and patient seen on rounds in conjunction with Dr. Harding. Patient was interviewed and examined. Vital signs and labs were reviewed. Exam is as noted above. I agree with the note above. The patient wasseen earlier in the day and was stable and on oral antibiotics. Plan had been for her to be transferred to [address] [place] [address] for further rehabilitation. A 2 view chestx-ray was ordered to evaluate for any significant changes compared to admission chest x-ray of June 22, 2022. Upon transfer to [address] [place] [address], patient was noted to behypoxemic and was transferred back to the floor. Chest x-ray reveals worsening infiltrate. Antibiotics were broadened to Zosyn and doxycycline and patient had Sim catheter placed with plan for at least 1 dose of diuretic. Wewill follow-up with repeat chest x-ray tomorrow. Documented By: Aryan Lindsay MD [id number] Signed By: <Electronically signed by MD Aryan Lindsay> 06/28/22 1540 <Electronically signed by DO VALERIE Raul Skyomid> 06/28/22 1206 [facility] Work Phone: [phone] Progress note Author Raul Kwong [facility] June 28, 2022 3:34pmNote Date/TimeMay 2022 3:[place] [address] Event Note Signed Patient: Kelsey Graves MR#: [id number] : 1980 Acct:[id number] Age/Sex: 41 / F Adm Date: 3 Loc: Room: [address] [place] [address] Type: ADM IN Attending Dr: Tiesha De MD Copies to: MD Raul Barriga MD Marwan Wassouf, MD~ Status Event Note Event Note DATE OF EVENT: 06/28/22 TIME OF EVENT: 15:00 EVENT DETAILS: On admission assessment, within a few minutes of her arrival to , Rashel wasfound to have markedly labored breathing. She was tachypneic to 30s, while lyingin bed with no activity. Her SpO2 was in the 70s on 6L nasal cannula. RT was called and she was placed on BiPAP with some improvement. ABGssent shortly thereafter. pending results. Her CXR from earlier today is worse than on admission, not officially read, but she was cleared for transfer and last set ofvitals from were documented lynn wnl. Discussed with hospitalist [employer] who agreed to transfer patient back to for workup and treatment. She will be re- evaluated by the rehab team next week regarding her appropriateness for IRF lev el care. Alternative discharge planning should be discussed in the event thatcresencio is not an appropriate candidate. Documented By: Raul Kwong MD 06/28/22 1525 Signed By: <Electronically signed by Raul Kwong MD> 06/28/22 1534 [facility] Work Phone: [phone] Progress note Author Tiesha De [facility] June 28, 2022 12:31amNote Date/TimeMay 2022 11:08[place] [address] Hospitalist Progress Note Signed Patient: Kelsey Graves MR#: [id number] : 1980 Acct:[id number] Age/Sex: 41 / F Adm Date: 3 Loc: Room: [address] [place] [address] Type: ADM IN Attending Dr: Tiesha De MD Copies to: ~ Date of Service: 06/27/2022 Subjective Subjective Narrative: Assessment And Plan 41F with PMH of Down Syndrome, DM, Hypothyroidism, pseudoseizures, AVMs, JANET (suppose to be on CPAP), Constipation, MO(BMI > 40) who p/w seizure activity andadmitted for the evaluation and treatment? Acute hypoxic and hypercapnic respiratory failure, Possible CAP vs Aspiration pneumonia, she is on 4L o2 via nasal cannula , afebrile she found to be hypoxic in the ED . . no leukocytosis or fever on admission ABG shows hypercapnia COVID-19 / Flu A/B / RSV PCR negative CT chest 06/23 shows Diffuse groundglass parenchymal densities and mild basilar pleural-parenchymal changes. Minimal pleural effusions. Blood Cx negative she was started on Zosyn IV and azithromycin then switch to oral Augmentin Pulmonary was consulted, recommendation appreciated. JANET reparably her CPAP machine was malfunction Reported seizure reportedly she had whole body seizure like activity while having her dinner which lasted for 1 minute and lost consciousness.?no postictal period was noted. EEG shows o definitive epileptiform activity was seen ct brain shows no acute intracranial process TSH wnl, B12 wnl Keppra Neurology was consulted, recommendation appreciated. DM blood sugars were reviewed sliding scale insulin and accuchecks. hold oral antidiabetic medication/metformin. Functional impairment PT/OT recommended Intermediate Facility vs Inpatient Rehab Unit family wants rehab. today rehab asked to improve her oxygenation before considering rehab INTERVAL HPI: As Above, Pt resting in bed. remain on O2, Denies any pain Chronic diseases: Unless mentioned Above, Essential home medications have been continued. DVT Px: Addressed Disposition: awaiting rehab approval Plan of care Discussed with: the medical team Exam Physical Exam Vital Signs: Temp Pulse Resp BP Pulse Ox O2 Del Method O2 Flow Rate 36.9 C 100 H 20 127/68 93 L Nasal Cannula 4 06/27/22 15:56 06/27/22 16:00 06/27/22 16:00 06/27/22 15:56 06/27/22 15:56 06/27/22 16:00 06/27/22 16:00 FiO2 45 06/27/22 04:38 Narrative: GEN: NAD, Cooperative NECK: ? JVD, supple LUNGS: minimal scattered bilateral rhonchi ,normal respiratory effort CV: nl S1 S2; no M/R/G ABD: Soft, ND, NT, can't access any mass or hepatosplenomegaly due to increase abdominal girth due to obesity EXT: trace LE edema, No calf muscle tenderness NEURO: move all her extremities; no overt focal neurological deficits PSYCH: Alert Objective Lab Results 06/24/22 05:18 06/24/22 05:18 Microbiology Results Microbiology 06/22/22 20:48 Blood - Right Hand Blood Culture - Preliminary No Growth 4 Days 06/22/22 19:42 Blood - Left Hand Blood Culture - Preliminary No Growth 4 Days Meds Allergies and Active Meds Allergies diazepam Allergy (Verified 06/22/22 19:37) Unknown Reaction Active Meds: Active Medications Generic Name Dose Route Start Last Admin Trade Name Freq PRN Reason Stop Dose Admin Acetaminophen 650 mg 06/23/22 02:25 06/27/22 08:09 Acetaminophen 325 Mg Tablet PO 06/23/23 02:24 650 mg Q6HR PRN Administration Pain Scale 1 - 3 or fever Albuterol/Ipratropium 3 ml 06/23/22 08:00 06/27/22 15:36 Ipratropium/Albuterol 0.5-3 Mg 3 Ml Ampul.Neb INHALATION 06/23/23 07:59 3 ml QID.RESP CARL Administration Ammonium Lactate 1 applic 06/23/22 09:00 06/27/22 08:11 Ammonium Lactate 12% Lot 226 Gm Bottle TOPICAL 06/23/23 08:59 1 applic BID CARL Administration Amoxicillin/Clavulanate Potassium 1 tab 06/26/22 21:00 06/27/22 08:09 Amoxicillin/Clav 875-125 Mg Tablet PO 06/28/22 23:59 1 tab BID CARL Administration Atorvastatin Calcium 10 mg 06/23/22 22:00 06/26/22 21:10 Atorvastatin 10 Mg Tablet PO 06/23/23 21:59 10 mg HS CARL Administration Calcium Polycarbophil 625 mg 06/23/22 09:00 06/27/22 08:08 Calcium Polycarbophil 625 Mg Tablet PO 06/23/23 08:59 625 mg DAILY CARL Administration Dextrose 0 gm 06/23/22 10:37 Dextrose 50% In Water 25 Gm/50 Ml Syringe IV-PUSH 06/23/23 10:36 PRN PRN Hypoglycemia Enoxaparin Sodium 40 mg 06/23/22 10:00 06/27/22 13:16 Enoxaparin 40 Mg/0.4 Ml Syringe SUBCUT 06/23/23 09:59 40 mg DAILY@10 CARL Administration Fluticasone Propionate 1 spray 06/23/22 09:00 06/27/22 08:09 Fluticasone Propionate [place] 120 [place]/16 Gm Bottle INTRANASAL 06/23/23 08:59 1 spray DAILY ACRL Administration Glucose 0 gm 06/23/22 10:37 Dextrose 40% Gel 15 Gm Tube PO 06/23/23 10:36 PRN PRN Hypoglycemia Guaifenesin/Dextromethorphan 10 ml 06/23/22 02:25 Guaif/Dextromethorphan Syrup 10 Ml Udc PO 06/23/23 02:24 Q8H PRN Cough Hydroxyzine Pamoate 50 mg 06/23/22 02:37 Hydroxyzine Pamoate 50 Mg Capsule PO 06/23/23 02:36 HS PRN Insomnia Insulin Aspart 0 units 06/26/22 08:00 06/27/22 13:16 Insulin Aspart 300 Units/3 Ml Insuln.Pen SUBCUT 06/26/23 07:59 7 units TID.WM.HS CARL Administration Protocol Lact Acid/Bifidobact/Lact [place]/Streptoc Th 1 cap 06/23/22 09:00 06/27/22 08:09 L. Acidophilus/Strept/La P-Davonte 1 Cap Capsule PO 06/23/23 08:59 1 cap DAILY CARL Administration Lactulose 10 gm 06/23/22 09:00 06/27/22 08:09 Lactulose 20 Gm/30 Ml Udc PO 06/23/23 08:59 Not Given BID CARL Levetiracetam 500 mg 06/26/22 21:00 06/27/22 08:09 Levetiracetam 500 Mg Tablet PO 06/26/23 20:59 500 mg BID CARL Administration Levothyroxine Sodium 75 mcg 06/23/22 06:30 06/27/22 05:58 Levothyroxine 75 Mcg Tablet PO 06/23/23 06:29 75 mcg DAILY@0630 CARL Administration Magnesium Hydroxide 15 ml 06/23/22 02:28 Magnesium Hydroxide Susp 30 Ml Udc PO 06/23/23 02:27 BID PRN Constipation Multivitamins 1 tab 06/23/22 09:00 06/27/22 08:08 Multivitamin 1 Tab Tablet PO 06/23/23 08:59 1 tab DAILY CARL Administration Nystatin 1 applic 06/23/22 09:00 06/27/22 08:09 Nystatin 100,000 Unit/Gram Powder 15 Gm Bottle TOPICAL 06/23/23 08:59 1 applic BID CARL Administration Oxycodone/Acetaminophen 1 tab 06/23/22 02:25 Oxycodone/Acetaminophen 5-325 Mg Tablet PO Q4H PRN Pain Scale 4 - 7 Potassium Chloride 40 meq 06/23/22 02:25 Potassium Chloride Er 20 Meq Tab.Er.Prt PO 06/23/23 02:24 DAILY PRN Hypokalemia Sertraline HCl 100 mg 06/23/22 09:00 06/27/22 08:09 Sertraline 100 Mg Tablet PO 06/23/23 08:59 100 mg DAILY CARL Administration Sodium Chloride 0 ml 06/22/22 19:36 06/22/22 23:20 Sodium Chloride 0.9 % 10 Ml Syringe IV-PUSH 06/22/23 19:35 10 ml PRN PRN Administration Flush Sodium Chloride 0 ml 06/23/22 14:00 06/27/22 06:00 Sodium Chloride 0.9 % 10 Ml Syringe IV-PUSH 06/23/23 13:59 10 ml QSHIFT CARL Administration Vitamin D 50 mcg 06/23/22 09:00 06/27/22 08:09 Cholecalciferol 25 Mcg (1,000 Units) Tablet PO 06/23/23 08:59 50 mcg DAILY CARL Administration A&P - Hospitalist Assessment/Plan (1) CAP (community acquired pneumonia): (2) Respiratory failure with hypercapnia: (3) Acute respiratory failure with hypoxia: (4) Aspiration pneumonia: (5) Seizure: (6) Down syndrome: (7) Diabetes: Plan . Documented By: Tiesha De MD 06/27/221654 Signed By: <Electronically signed by Tiesha De MD> 06/28/22 0031 [facility] Work Phone: [phone] 495-473705-04-2023 Progress note Author Nabil Holman [facility] June 27, 2022 2:40pmNote Date/TimeMay 2022 2:[place] [address] Pulmonology Progress Note Signed Patient: Kelsey Graevs MR#: [id number] : 1980 Acct:[id number] Age/Sex: 41 / F Adm Date: 3 Loc: Room: [address] [place] [address] Type: ADM IN Attending Dr: Tiesha De MD Copies to: ~ Date of Service: 06/27/2022 Subjective Subjective Narrative: Patient remains stable on current treatment including 6 L of oxygen per nasal cannula while awake and BiPAP at night. Remains stable in no distress, very pleasant, has had mild cough and no significant sputum production lately. Exam Physical Exam Vital Signs: Temp Pulse Resp BP Pulse Ox O2 Del Method O2 Flow Rate 98.1 F 92 H 22 125/70 93 L Nasal Cannula 6 06/27/22 11:31 06/27/22 11:31 06/27/22 11:31 06/27/22 11:31 06/27/22 11:31 06/27/22 11:31 06/27/22 11:31 FiO2 45 06/27/22 04:38 Narrative: General: Patient is alert awake smiling, conversing and appeared in no distress at rest very pleasant, did not have any significant cough or audible wheezing Eyes: Pupils equal round reactive to light HEENT: Normocephalic, atraumatic, oral mucosa moist Neck: Supple no lymphadenopathy or thyromegaly Cardiovascular: S1, S2, normal sounds, no murmurs or gallops noted, regular rhythm Lungs: Diminished breath sounds bilaterally but currently clear to auscultation with occasional basilar rhonchi only Extremities: Improving peripheral edema Neurologic: As detailed above Objective Intake and Output I&O - Last 24 Hours: Intake & Output 06/26/22 06/27/22 06/27/22 23:59 07:59 15:59 Intake Total 360 / 1565 100 / 900 800 / 900 Balance 360 / 1565 100 / 900 800 / 900 Weight 88.9 kg Labs 06/24/22 05:18 06/24/22 05:18 Microbiology Micro: Microbiology 06/22/22 20:48 Blood Culture - Preliminary Blood - Right Hand No Growth 4 Days 06/22/22 19:42 Blood Culture - Preliminary Blood - Left Hand No Growth 4 Days Assessment/Plan Assessment/Plan (1) Acute hypercapnic respiratory failure: Plan: Clinically with significant improvement as mentioned above (2) Obstructive sleep apnea: Plan: Continue with BiPAP at night and as needed, switching to regular BiPAP settings of 15/10 and attempting to arrange for similar equipments and settings on discharge (3) Pulmonary vascular congestion: Plan: Overall fluid overload, part of appearance of vascular congestion is likely due to micro atelectatic changes (4) Obesity: Plan: Associated with hypoventilation (5) Acute hypoxemic respiratory failure: Plan: Stable on nasal cannula while awake Plan Continue current treatment plans, will continue to follow Documented By: Nabil Holman MD 06/27/22 1439 Signed By: <Electronically signed by Nabil Holman MD> 06/27/22 1440 [facility] Work Phone: [phone]) 383-572205-04-2023 Progress note Author Tiesha De [facility] June 27, 2022 1:16amNote Date/TimeMay 2022 7:[address] [place] [address] Hospitalist Progress Note Signed Patient: Kelsey Graves MR#: [id number] : 1980 Acct:[id number] Age/Sex: 41 / F Adm Date: 3 Loc: Room: [address] [place] [address] Type: ADM IN Attending Dr: Tiesha De MD Copies to: ~ Date of Service: 06/26/2022 Subjective Subjective Narrative: Assessment And Plan 41F with PMH of Down SYndrome,? Hypothyroidism, pseudoseizures , DM, AVMs, JANET, Constipation, MO(BMI > 40) who p/w seizures and admitted for the evaluation and treatment? Acute hypoxic and hypercapnic respiratory failure, CAP vs Aspiration pneumonia, she is on 4L o2 via nasal cannula , afebrile CT chest shows Diffuse groundglass parenchymal densities and mild basilar pleural-parenchymal changes. Minimal pleural effusions. Blood Cx remain negative she was started on Zosyn IV and azithromycin . agree with switch to oral Augmentin Pulmonary was consulted, recommendation appreciated. Move out ICU Reported seizure Keppra ct brain shows no acute intracranial process Neurology was consulted, recommendation appreciated. DM blood sugars were reviewed sliding scale insulin and accuchecks. hold oral antidiabetic medication/metformin. Functional impairment PT/OT recommended Intermediate Facility vs Inpatient Rehab Unit She was reviewed by our rehab and found not to be a candidate. Family was not happy and ask for review. Will consult Physiatry for second evaluation INTERVAL HPI: As Above, Pt resting in bed. remain on O2, Denies any pain Chronic diseases: Unless mentioned Above, Essential home medications have been continued. DVT Px: Addressed Disposition: To be determined Plan of care Discussed with: the medical team Exam Physical Exam Vital Signs: Temp Pulse Resp BP Pulse Ox O2 Del Method O2 Flow Rate 37.1 C 80 20 120/77 90 L Nasal Cannula 4 06/26/22 15:18 06/26/22 16:00 06/26/22 16:00 06/26/22 15:18 06/26/22 15:18 06/26/22 16:00 06/26/22 16:00 FiO2 40 06/26/22 04:56 Narrative: GEN: NAD, Cooperative NECK: ? JVD, supple LUNGS: bilateral rhonchi normal respiratory effort CV: nl S1 S2; no M/R/G ABD: Soft, ND, NT, can't access any mass or hepatosplenomegaly due to increaseabdominal girth due to obesity EXT: trace LE edema, No calf muscle tenderness NEURO: move all her extremities; no overt focal neurological deficits PSYCH: Alert Objective Lab Results 06/24/22 05:18 06/24/22 05:18 Microbiology Results Microbiology 06/22/22 20:48 Blood - Right Hand Blood Culture - Preliminary No Growth 3 Days 06/22/22 19:42 Blood - Left Hand Blood Culture - Preliminary No Growth 3 Days Meds Allergies and Active Meds Allergies diazepam Allergy (Verified 06/22/22 19:37) Unknown Reaction Active Meds: Active Medications Generic Name Dose Route Start Last Admin Trade Name Freq PRN Reason Stop Dose Admin Acetaminophen 650 mg 06/23/22 02:25 Acetaminophen 325 Mg Tablet PO 06/23/23 02:24 Q6HR PRN Pain Scale 1 - 3 or fever Albuterol/Ipratropium 3 ml 06/23/22 08:00 06/26/22 16:08 Ipratropium/Albuterol 0.5-3 Mg 3 Ml Ampul.Neb INHALATION 06/23/23 07:59 3 ml QID.RESP CARL Administration Ammonium Lactate 1 applic 06/23/22 09:00 06/26/22 08:59 Ammonium Lactate 12% Lot 226 Gm Bottle TOPICAL 06/23/23 08:59 1 applic BID CARL Administration Amoxicillin/Clavulanate Potassium 1 tab 06/26/22 21:00 Amoxicillin/Clav 875-125 Mg Tablet PO 06/28/22 23:59 BID CARL Atorvastatin Calcium 10 mg 06/23/22 22:00 06/25/22 21:14 Atorvastatin 10 Mg Tablet PO 06/23/23 21:59 10 mg HS CARL Administration Calcium Polycarbophil 625 mg 06/23/22 09:00 06/26/22 08:54 Calcium Polycarbophil 625 Mg Tablet PO 06/23/23 08:59 625 mg DAILY CARL Administration Dextrose 0 gm 06/23/22 10:37 Dextrose 50% In Water 25 Gm/50 Ml Syringe IV-PUSH 06/23/23 10:36 PRN PRN Hypoglycemia Enoxaparin Sodium 40 mg 06/23/22 10:00 06/26/22 10:32 Enoxaparin 40 Mg/0.4 Ml Syringe SUBCUT 06/23/23 09:59 40 mg DAILY@10 CARL Administration Fluticasone Propionate 1 spray 06/23/22 09:00 06/26/22 08:55 Fluticasone Propionate [place] 120 [place]/16 Gm Bottle INTRANASAL 06/23/23 08:59 1 spray DAILY CARL Administration Glucose 0 gm 06/23/22 10:37 Dextrose 40% Gel 15 Gm Tube PO 06/23/23 10:36 PRN PRN Hypoglycemia Guaifenesin/Dextromethorphan 10 ml 06/23/22 02:25 Guaif/Dextromethorphan Syrup 10 Ml Udc PO 06/23/23 02:24 Q8H PRN Cough Hydroxyzine Pamoate 50 mg 06/23/22 02:37 Hydroxyzine Pamoate 50 Mg Capsule PO 06/23/23 02:36 HS PRN Insomnia Insulin Aspart 0 units 06/26/22 08:00 06/26/22 17:59 Insulin Aspart 300 Units/3 Ml Insuln.Pen SUBCUT 06/26/23 07:59 4 units TID.WM.HS CARL Administration Protocol Lact Acid/Bifidobact/Lact [place]/Streptoc Th 1 cap 06/23/22 09:00 06/26/22 08:54 L. Acidophilus/Strept/La P-[place] 1 Cap Capsule PO 06/23/23 08:59 1 cap DAILY CARL Administration Lactulose 10 gm 06/23/22 09:00 06/26/22 08:55 Lactulose 20 Gm/30 Ml Udc PO 06/23/23 08:59 Not Given BID CARL Levetiracetam 500 mg 05/03/23 21:00 Levetiracetam 500 Mg Tablet PO 06/26/23 20:59 BID CARL Levothyroxine Sodium 75 mcg 06/23/22 06:30 06/26/22 06:51 Levothyroxine 75 Mcg Tablet PO 06/23/23 06:29 75 mcg DAILY@0630 CARL Administration Magnesium Hydroxide 15 ml 06/23/22 02:28 Magnesium Hydroxide Susp 30 Ml Udc PO 06/23/23 02:27 BID PRN Constipation Multivitamins 1 tab 06/23/22 09:00 06/26/22 08:55 Multivitamin 1 Tab Tablet PO 06/23/23 08:59 1 tab DAILY CARL Administration Nystatin 1 applic 06/23/22 09:00 06/26/22 08:59 Nystatin 100,000 Unit/Gram Powder 15 Gm Bottle TOPICAL 06/23/23 08:59 1 applic BID CARL Administration Oxycodone/Acetaminophen 1 tab 06/23/22 02:25 Oxycodone/Acetaminophen 5-325 Mg Tablet PO Q4H PRN Pain Scale 4 - 7 Potassium Chloride 40 meq 06/23/22 02:25 Potassium Chloride Er 20 Meq Tab.Er.Prt PO 06/23/23 02:24 DAILY PRN Hypokalemia Sertraline HCl 100 mg 06/23/22 09:00 06/26/22 08:54 Sertraline 100 Mg Tablet PO 06/23/23 08:59 100 mg DAILY CARL Administration Sodium Chloride 0 ml 06/22/22 19:36 06/22/22 23:20 Sodium Chloride 0.9 % 10 Ml Syringe IV-PUSH 06/22/23 19:35 10 ml PRN PRN Administration Flush Sodium Chloride 0 ml 06/23/22 14:00 06/26/22 14:30 Sodium Chloride 0.9 % 10 Ml Syringe IV-PUSH 06/23/23 13:59 10 ml QSHIFT CARL Administration Vitamin D 50 mcg 06/23/22 09:00 06/26/22 08:54 Cholecalciferol 25 Mcg (1,000 Units) Tablet PO 06/23/23 08:59 50 mcg DAILY CARL Administration A&P - Hospitalist Assessment/Plan (1) CAP (community acquired pneumonia): (2) Respiratory failure with hypercapnia: (3) Acute respiratory failure with hypoxia: (4) Aspiration pneumonia: (5) Seizure: (6) Down syndrome: (7) Diabetes: Plan . Documented By: Tiesha De MD 06/26/221946 Signed By: <Electronically signed by Tiesha De MD> 06/27/22 0116 [facility] Work Phone: 1(604) 316-820505-03-2023 Progress note Author Nabil Holman [facility] June 26, 2022 3:33pmNote Date/TimeMay 2022 3:[place] [address] Pulmonology Progress Note Signed Patient: Kelsey Graves MR#: [id number] : 1980 Acct:[id number] Age/Sex: 41 / F Adm Date: 3 Loc: 4 Room: [address] [place] [address] Type: ADM IN Attending Dr: Tiesha De MD Copies to: ~ Date of Service: 06/26/2022 Subjective Subjective Narrative: Patient continues to improve, remains on nasal cannula while awake, BiPAP duringsleep, marginal butadequate oxygenation without significant clinical worsening. Exam Physical Exam Vital Signs: Temp Pulse Resp BP Pulse Ox O2 Del Method O2 Flow Rate 98.8 F 104 H 22 120/77 90 L Nasal Cannula 5 06/26/22 15:18 06/26/22 15:18 06/26/22 15:18 06/26/22 15:18 06/26/22 15:18 06/26/22 15:18 06/26/22 15:18 FiO2 40 06/26/22 04:56 Narrative: General: Patient is alert awake smiling, conversing and appeared in no distress at rest very pleasant, did not have any significant cough or audible wheezing Eyes: Pupils equal round reactive to light HEENT: Normocephalic, atraumatic, oral mucosa moist Neck: Supple no lymphadenopathy or thyromegaly Cardiovascular: S1, S2, normal sounds, no murmurs or gallops noted, regular rhythm Lungs: Diminished breath sounds bilaterally but currently clear to auscultation with occasional basilar rhonchi only Extremities: Improving peripheral edema Neurologic: As detailed above Objective Intake and Output I&O - Last 24 Hours: Intake & Output 06/25/22 06/26/22 06/26/22 23:59 07:59 15:59 Intake Total 910 / 2860 450 / 1205 755 / 1205 Output Total 100 / 850 Balance 2009 450 / 1205 755 / 1205 Weight 85.4 kg Labs 06/24/22 05:18 06/24/22 05:18 Microbiology Micro: Microbiology 06/22/22 20:48 Blood Culture - Preliminary Blood - Right Hand No Growth 3 Days 06/22/22 19:42 Blood Culture - Preliminary Blood - Left Hand No Growth 3 Days Assessment/Plan Assessment/Plan (1) Acute hypercapnic respiratory failure: Plan: Clinically with significant improvement as mentioned above (2) Obstructive sleep apnea: Plan: Continue with BiPAP at night and as needed, switching to regular BiPAP settings of 15/10 and attempting to arrange for similar equipments and settings on discharge (3) Pulmonary vascular congestion: Plan: Overall fluid overload, part of appearance of vascular congestion is likely due to micro atelectatic changes (4) Obesity: Plan: Associated with hypoventilation (5) Acute hypoxemic respiratory failure: Plan: Stable on nasal cannula while awake Plan Continue current treatment plans, will continue to follow Documented By: Nabil Holman MD 06/26/221531 Signed By: <Electronically signed by Nabil Holman MD> 06/26/221532 [facility] Work Phone: [phone] 206-271805-03-2023 Progress note Author Tiesha De [facility] June 26, 2022 1:09amNote Date/TimeMay 2022 7:20[place] [address] Hospitalist Progress Note Signed Patient: Kelsey Graves MR#: [id number] : 1980 Acct:[id number] Age/Sex: 41 / F Adm Date: 3 Loc: Room: [address] [place] [address] Type: ADM IN Attending Dr: Tiesha De MD Copies to: ~ Date of Service: 06/25/2022 Subjective Subjective Narrative: Assessment And Plan Acute hypoxic and hypercapnic respiratory failure, CAP vs Aspiration pneumonia, Hypoxia is better , afebrile CT chest shows Diffuse groundglass parenchymal densities and mild basilar pleural-parenchymal changes. Minimal pleural effusions. Blood Cx remain negative Breathing Tx Zosyn IV and azithromycin Pulmonary was consulted, recommendation appreciated. Move out ICU Reported seizure Keppra ct brain shows no acute intracranial process Neurology was consulted, recommendation appreciated. DM blood sugars were reviewed sliding scale insulin and accuchecks. hold oral antidiabetic medication/metformin. INTERVAL HPI: As Above, Pt resting in bed. remain on O2, Denies any pain Chronic diseases: Unless mentioned Above, Essential home medications have been continued. DVT Px: Addressed Disposition: To be determined Plan of care Discussed with: the medical team Exam Physical Exam Vital Signs: Temp Pulse Resp BP Pulse Ox O2 Del Method O2 Flow Rate 36.9 C 94 H 20 111/56 L 95 Nasal Cannula 3 06/25/22 08:00 06/25/22 16:02 06/25/22 16:02 06/25/22 12:00 06/25/22 05:35 06/25/22 16:02 06/25/22 16:02 FiO2 40 06/25/22 06:00 Narrative: GEN: NAD, Cooperative NECK: ? JVD, supple LUNGS: bilateral rhonchi normal respiratory effort CV: nl S1 S2; no M/R/G ABD: Soft, ND, NT, can't access any mass or hepatosplenomegaly due to increaseabdominal girth due to obesity EXT: trace LE edema, No calf muscle tenderness NEURO: move all her extremities; no overt focal neurological deficits PSYCH: Alert Objective Lab Results 06/24/22 05:18 06/24/22 05:18 Microbiology Results Microbiology 06/23/22 06:15 Urine, Void Urine Culture - Final 75,000 colonies/ml mixed bacterial skin contaminants 2 Days 06/22/22 20:48 Blood - Right Hand Blood Culture - Preliminary No Growth 2 Days 06/22/22 19:42 Blood - Left Hand Blood Culture - Preliminary No Growth 2 Days Meds Allergies and Active Meds Allergies diazepam Allergy (Verified 06/22/22 19:37) Unknown Reaction Active Meds: Active Medications Generic Name Dose Route Start Last Admin Trade Name Freq PRN Reason Stop Dose Admin Acetaminophen 650 mg 06/23/22 02:25 Acetaminophen 325 Mg Tablet PO 06/23/23 02:24 Q6HR PRN Pain Scale 1 - 3 or fever Albuterol/Ipratropium 3 ml 06/23/22 08:00 06/25/22 16:02 Ipratropium/Albuterol 0.5-3 Mg 3 Ml Ampul.Neb INHALATION 06/23/23 07:59 3 ml QID.RESP CARL Administration Ammonium Lactate 1 applic 06/23/22 09:00 06/25/22 09:30 Ammonium Lactate 12% Lot 226 Gm Bottle TOPICAL 06/23/23 08:59 1 applic BID CARL Administration Atorvastatin Calcium 10 mg 06/23/22 22:00 06/24/22 21:09 Atorvastatin 10 Mg Tablet PO 06/23/23 21:59 10 mg HS CARL Administration Calcium Polycarbophil 625 mg 06/23/22 09:00 06/25/22 09:30 Calcium Polycarbophil 625 Mg Tablet PO 06/23/23 08:59 625 mg DAILY CARL Administration Dextrose 0 gm 06/23/22 10:37 Dextrose 50% In Water 25 Gm/50 Ml Syringe IV-PUSH 06/23/23 10:36 PRN PRN Hypoglycemia Enoxaparin Sodium 40 mg 06/23/22 10:00 06/25/22 09:30 Enoxaparin 40 Mg/0.4 Ml Syringe SUBCUT 06/23/23 09:59 40 mg DAILY@10 CARL Administration Fluticasone Propionate 1 spray 06/23/22 09:00 06/25/22 09:30 Fluticasone Propionate [place] 120 [place]/16 Gm Bottle INTRANASAL 06/23/23 08:59 1 spray DAILY CARL Administration Glucose 0 gm 06/23/22 10:37 Dextrose 40% Gel 15 Gm Tube PO 06/23/23 10:36 PRN PRN Hypoglycemia Guaifenesin/Dextromethorphan 10 ml 06/23/22 02:25 Guaif/Dextromethorphan Syrup 10 Ml Udc PO 06/23/23 02:24 Q8H PRN Cough Hydroxyzine Pamoate 50 mg 06/23/22 02:37 Hydroxyzine Pamoate 50 Mg Capsule PO 06/23/23 02:36 HS PRN Insomnia Azithromycin 500 mg in 250 mls @ 250 mls/hr 06/23/22 23:00 06/25/22 06:07 Zithromax IV Infused Q24H CARL Infusion Piperacillin Sod/Tazobactam Sod 3.375 gm in 100 mls @ 200 mls/hr 06/23/22 11:00 06/25/22 12:32 Zosyn IV 200 mls/hr Q6H CARL Administration Levetiracetam 500 mg/ Dextrose 105 mls @ 420 mls/hr 06/23/22 10:40 06/25/22 09:30 IV 06/23/23 10:39 420 mls/hr BID CARL Administration Lactated Ringer's 1,000 mls @ 75 mls/hr 06/23/22 10:45 06/25/22 18:11 Lactated Ringers IV 06/23/23 10:44 Not Given .[id number] CARL Insulin Aspart 0 units 06/23/22 12:00 06/25/22 17:01 Insulin Aspart 300 Units/3 Ml Insuln.Pen SUBCUT 06/23/23 11:59 3 units Q6HR CARL Administration Protocol Lact Acid/Bifidobact/Lact [place]/Streptoc Th 1 cap 06/23/22 09:00 06/25/22 09:30 L. Acidophilus/Strept/La P-Davonte 1 Cap Capsule PO 06/23/23 08:59 1 cap DAILY CARL Administration Lactulose 10 gm 06/23/22 09:00 06/25/22 09:30 Lactulose 20 Gm/30 Ml Udc PO 06/23/23 08:59 10 gm BID CARL Administration Levothyroxine Sodium 75 mcg 06/23/22 06:30 06/25/22 06:26 Levothyroxine 75 Mcg Tablet PO 06/23/23 06:29 75 mcg DAILY@0630 CARL Administration Magnesium Hydroxide 15 ml 06/23/22 02:28 Magnesium Hydroxide Susp 30 Ml Udc PO 06/23/23 02:27 BID PRN Constipation Metformin HCl 250 mg 06/23/22 08:00 06/25/22 16:24 Metformin 500 Mg Tablet PO 06/23/23 07:59 250 mg BID.WITH.MEALS CARL Administration Multivitamins 1 tab 06/23/22 09:00 06/25/22 09:30 Multivitamin 1 Tab Tablet PO 06/23/23 08:59 1 tab DAILY CARL Administration Nystatin 1 applic 06/23/22 09:00 06/25/22 09:30 Nystatin 100,000 Unit/Gram Powder 15 Gm Bottle TOPICAL 06/23/23 08:59 1 applic BID CARL Administration Oxycodone/Acetaminophen 1 tab 06/23/22 02:25 Oxycodone/Acetaminophen 5-325 Mg Tablet PO Q4H PRN Pain Scale 4 - 7 Pantoprazole Sodium 40 mg 06/24/22 10:05 06/25/22 09:30 Pantoprazole 40 Mg Vial IV-PUSH 06/24/23 10:04 40 mg DAILY CARL Administration Potassium Chloride 40 meq 06/23/22 02:25 Potassium Chloride Er 20 Meq Tab.Er.Prt PO 06/23/23 02:24 DAILY PRN Hypokalemia Sertraline HCl 100 mg 06/23/22 09:00 06/25/22 09:30 Sertraline 100 Mg Tablet PO 06/23/23 08:59 100 mg DAILY CARL Administration Sodium Chloride 0 ml 06/22/22 19:36 06/22/22 23:20 Sodium Chloride 0.9 % 10 Ml Syringe IV-PUSH 06/22/23 19:35 10 ml PRN PRN Administration Flush Sodium Chloride 10 ml 06/23/22 10:45 06/25/22 11:15 Sodium Chloride 0.9 % 10 Ml Syringe IV-PUSH 06/23/23 10:44 10 ml Q8H CARL Administration Sodium Chloride 0 ml 06/23/22 14:00 06/25/22 16:00 Sodium Chloride 0.9 % 10 Ml Syringe IV-PUSH 06/23/23 13:59 10 ml QSHIFT CARL Administration Sodium Chloride 10 ml 06/24/22 10:03 06/25/22 11:14 Sodium Chloride 0.9 % 10 Ml Syringe IV-PUSH 06/24/23 10:02 10 ml DAILY CARL Administration Sodium Chloride 10 ml 06/24/22 10:03 06/25/22 11:14 Sodium Chloride 0.9 % 10 Ml Vial.Pf INJECTION 06/24/23 10:02 10 ml DAILY CARL Administration Vitamin D 50 mcg 06/23/22 09:00 06/25/22 09:30 Cholecalciferol 25 Mcg (1,000 Units) Tablet PO 06/23/23 08:59 50 mcg DAILY CARL Administration A&P - Hospitalist Assessment/Plan (1) CAP (community acquired pneumonia): (2) Respiratory failure with hypercapnia: (3) Acute respiratory failure with hypoxia: (4) Aspiration pneumonia: (5) Seizure: (6) Down syndrome: (7) Diabetes: Plan . Documented By: Tiesha De MD 06/25/221919 Signed By: <Electronically signed by Tiesha De MD> 06/26/22108 [facility] Work Phone: [phone] Progress note Author Nabil Holman [facility] June 25, 2022 3:35pmNote Date/TimeMay 2022 3:30[place] [address] Pulmonology Progress Note Signed Patient: Kelsey Graves MR#: [id number] : 1980 Acct:[id number] Age/Sex: 41 / F Adm Date: 3 Loc: Room: [address] [place] [address] Type: ADM IN Attending Dr: Tiesha De MD Copies to: ~ Date of Service: 06/25/2022 Subjective Subjective Narrative: Patient is doing very well today, fully alert awake oxygenating well on 4 L per nasal cannula, appears comfortable in no distress with improving cough, and significant improvement in auscultation to her lungs. Tolerating BiPAP at nightand with naps during the day otherwise doing well on a nasal cannula. Hemodynamically stable, afebrile Exam Physical Exam Vital Signs: Temp Pulse Resp BP Pulse Ox O2 Del Method O2 Flow Rate 98.5 F 80 20 111/56 L 95 Nasal Cannula 4 06/25/22 08:00 06/25/22 12:19 06/25/22 12:19 06/25/22 12:00 06/25/22 05:35 06/25/22 13:10 06/25/22 13:10 FiO2 40 06/25/22 06:00 Narrative: General: Patient is alert awake smiling, conversing and appeared in no distress at rest very pleasant, did not have any significant cough or audible wheezing Eyes: Pupils equal round reactive to light HEENT: Normocephalic, atraumatic, oral mucosa moist Neck: Supple no lymphadenopathy or thyromegaly Cardiovascular: S1, S2, normal sounds, no murmurs or gallops noted, regular rhythm Lungs: Diminished breath sounds bilaterally but currently clear to auscultation with occasional basilar rhonchi only Extremities: Improving peripheral edema Neurologic: As detailed above Objective Intake and Output I&O - Last 24 Hours: Intake & Output 06/24/22 06/25/22 06/25/22 23:59 07:59 15:59 Intake Total 1160 / 3530 1450 / 1950 500 / 1950 Output Total 350 / 750 400 / 750 Balance 1160 / 3530 1100 / 1200 100 / 1200 Weight 85.4 kg Labs 06/24/22 05:18 06/24/22 05:18 Microbiology Micro: Microbiology 06/23/22 06:15 Urine Culture - Final Urine, Void 75,000 colonies/ml mixed bacterial skin contaminants 2 Days 06/22/22 20:48 Blood Culture - Preliminary Blood - Right Hand No Growth 2 Days 06/22/22 19:42 Blood Culture - Preliminary Blood - Left Hand No Growth 2 Days Assessment/Plan Assessment/Plan (1) Acute hypercapnic respiratory failure: Plan: Clinically with significant improvement as mentioned above (2) Obstructive sleep apnea: Plan: Continue with BiPAP at night and as needed, switching to regular BiPAP settings of 15/10 and attempting to arrange for similar equipments and settings on discharge (3) Pulmonary vascular congestion: Plan: Overall fluid overload, part of appearance of vascular congestion is likely due to micro atelectatic changes (4) Obesity: Plan: Associated with hypoventilation (5) Acute hypoxemic respiratory failure: Plan: Stable on nasal cannula while awake Plan Continue current plans with noninvasive ventilation or BiPAP for severe obstructive sleep apnea, lynn used during sleep at night and with naps during the day, otherwise continue with oxygen therapy per nasal cannula and titrate astolerated. Continue with PT/OT, speech therapy for swallowing evaluation. Documented By: Nabil Holman MD 06/25/22 1528 Signed By: <Electronically signed by Nabil Holman MD> 06/25/22 1536 [facility] Work Phone: 1([phone] 340-192705-02-2023 Progress note Author Tiesha De [facility] June 25, 2022 1:26amNote Date/TimeMay 2022 4:41[place] [address] Hospitalist Progress Note Signed Patient: Kelsey Graves MR#: [id number] : 1980 Acct:[id number] Age/Sex: 41 / F Adm Date: 3 Loc: Room: [address] [place] [address] Type: ADM IN Attending Dr: Tiesha De MD Copies to: ~ Date of Service: 06/24/2022 Subjective Subjective Narrative: Assessment And Plan Acute hypoxic and hypercapnic respiratory failure, CAP vs Aspiration pneumonia, Hypoxia, afebrile, leukocytosis resolving CT chest shows Diffuse groundglass parenchymal densities and mild basilar pleural-parenchymal changes. Minimal pleural effusions. Breathing Tx Zosyn IV and azithromycin Pulmonary was consulted, recommendation appreciated. Reported seizure Keppra ct brain shows no acute intracranial process Neurology was consulted, recommendation appreciated. DM blood sugars were reviewed sliding scale insulin and accuchecks. hold oral antidiabetic medication/metformin. INTERVAL HPI: As Above, Pt resting in bed. remain on O2, lethargic , Denies anypain Chronic diseases: Unless mentioned Above, Essential home medications have been continued. DVT Px: Addressed Disposition: To be determined Plan of care Discussed with: the medical team Exam Physical Exam Vital Signs: Temp Pulse Resp BP Pulse Ox O2 Del Method O2 Flow Rate 36.9 C 64 24 105/66 97 Nasal Cannula 5 06/24/22 12:00 06/24/22 16:16 06/24/22 16:16 06/24/22 15:00 06/24/22 12:00 06/24/22 16:00 06/24/22 16:00 FiO2 40 06/24/22 08:30 Narrative: GEN: NAD, not fully Cooperative NECK: ? JVD, supple LUNGS: bilateral rhonchi normal respiratory effort CV: nl S1 S2; no M/R/G ABD: Soft, ND, NT, can't access any mass or hepatosplenomegaly due to increaseabdominal girth due to obesity EXT: trace LE edema, No calf muscle tenderness NEURO: Limited exam, not fully cooperative; however move all her extremities; no overt focal neurological deficits. Pupils are equal and reactive to light PSYCH: lethargic Objective Lab Results 06/24/22 05:18 06/24/22 05:18 Microbiology Results Microbiology 06/23/22 06:15 Urine, Void Urine Culture - Preliminary 30,000 colonies/ml mixed bacterial skin contaminants 1 Day 06/22/22 20:48 Blood - Right Hand Blood Culture - Preliminary No Growth 1 Day 06/22/22 19:42 Blood - Left Hand Blood Culture - Preliminary No Growth 1 Day Meds Allergies and Active Meds Allergies diazepam Allergy (Verified 06/22/22 19:37) Unknown Reaction Active Meds: Active Medications Generic Name Dose Route Start Last Admin Trade Name Manuela PRN Reason Stop Dose Admin Acetaminophen 650 mg 06/23/22 02:25 Acetaminophen 325 Mg Tablet PO 06/23/23 02:24 Q6HR PRN Pain Scale 1 - 3 or fever Albuterol/Ipratropium 3 ml 06/23/22 08:00 06/24/22 16:05 Ipratropium/Albuterol 0.5-3 Mg 3 Ml Ampul.Neb INHALATION 06/23/23 07:59 3 ml QID.RESP CARL Administration Ammonium Lactate 1 applic 06/23/22 09:00 06/24/22 09:15 Ammonium Lactate 12% Lot 226 Gm Bottle TOPICAL 06/23/23 08:59 1 applic BID CARL Administration Atorvastatin Calcium 10 mg 06/23/22 22:00 06/23/22 22:48 Atorvastatin 10 Mg Tablet PO 06/23/23 21:59 Not Given HS CARL Calcium Polycarbophil 625 mg 06/23/22 09:00 06/24/22 09:14 Calcium Polycarbophil 625 Mg Tablet PO 06/23/23 08:59 Not Given DAILY CARL Dextrose 0 gm 06/23/22 10:37 Dextrose 50% In Water 25 Gm/50 Ml Syringe IV-PUSH 06/23/23 10:36 PRN PRN Hypoglycemia Enoxaparin Sodium 40 mg 06/23/22 10:00 06/24/22 09:19 Enoxaparin 40 Mg/0.4 Ml Syringe SUBCUT 06/23/23 09:59 40 mg DAILY@10 CARL Administration Fluticasone Propionate 1 spray 06/23/22 09:00 06/24/22 09:15 Fluticasone Propionate [place] 120 [place]/16 Gm Bottle INTRANASAL 06/23/23 08:59 Not Given DAILY [facility] Glucose 0 gm 06/23/22 10:37 Dextrose 40% Gel 15 Gm Tube PO 06/23/23 10:36 PRN PRN Hypoglycemia Guaifenesin/Dextromethorphan 10 ml 06/23/22 02:25 Guaif/Dextromethorphan Syrup 10 Ml Udc PO 06/23/23 02:24 Q8H PRN Cough Hydroxyzine Pamoate 50 mg 06/23/22 02:37 Hydroxyzine Pamoate 50 Mg Capsule PO 06/23/23 02:36 HS PRN Insomnia Azithromycin 500 mg in 250 mls @ 250 mls/hr 06/23/22 23:00 06/24/22 00:39 Zithromax IV 250 mls/hr Q24H CARL Administration Piperacillin Sod/Tazobactam Sod 3.375 gm in 100 mls @ 200 mls/hr 06/23/22 11:00 06/24/22 13:38 Zosyn IV 200 mls/hr Q6H CARL Administration Levetiracetam 500 mg/ Dextrose 105 mls @ 420 mls/hr 06/23/22 10:40 06/24/22 09:04 IV 06/23/23 10:39 420 mls/hr BID CARL Administration Lactated Ringer's 1,000 mls @ 75 mls/hr 06/23/22 10:45 06/24/22 13:37 Lactated Ringers IV 06/23/23 10:44 75 mls/hr .[id number] CARL Administration Dexmedetomidine HCl 400 mcg/ 100 mls @ 4.5 mls/hr 06/23/22 21:45 06/24/22 15:00 Dextrose IV 06/23/23 21:44 0 mcg/kg/hr .[id number] CARL 0 mls/hr Titration Protocol 0.2 MCG/KG/HR Insulin Aspart 0 units 06/23/22 12:00 06/24/22 13:05 Insulin Aspart 300 Units/3 Ml Insuln.Pen SUBCUT 06/23/23 11:59 Not Given Q6HR [facility] Protocol Lact Acid/Bifidobact/Lact [place]/Streptoc Th 1 cap 06/23/22 09:00 06/24/22 09:13 L. Acidophilus/Strept/[place] P-[place] 1 Cap Capsule PO 06/23/23 08:59 Not Given DAILY CARL Lactulose 10 gm 06/23/22 09:00 06/24/22 09:13 Lactulose 20 Gm/30 Ml Udc PO 06/23/23 08:59 Not Given BID CARL Levothyroxine Sodium 75 mcg 06/23/22 06:30 06/24/22 06:43 Levothyroxine 75 Mcg Tablet PO 06/23/23 06:29 Not Given DAILY@0630 CARL Magnesium Hydroxide 15 ml 06/23/22 02:28 Magnesium Hydroxide Susp 30 Ml Udc PO 06/23/23 02:27 BID PRN Constipation Metformin HCl 250 mg 06/23/22 08:00 06/24/22 08:56 Metformin 500 Mg Tablet PO 06/23/23 07:59 Not Given BID.WITH.MEALS CARL Multivitamins 1 tab 06/23/22 09:00 06/24/22 09:14 Multivitamin 1 Tab Tablet PO 06/23/23 08:59 Not Given DAILY CARL Nystatin 1 applic 06/23/22 09:00 06/24/22 09:15 Nystatin 100,000 Unit/Gram Powder 15 Gm Bottle TOPICAL 06/23/23 08:59 1 applic BID CARL Administration Oxycodone/Acetaminophen 1 tab 06/23/22 02:25 Oxycodone/Acetaminophen 5-325 Mg Tablet PO Q4H PRN Pain Scale 4 - 7 Pantoprazole Sodium 40 mg 06/24/22 10:05 06/24/22 12:49 Pantoprazole 40 Mg Vial IV-PUSH 06/24/23 10:04 40 mg DAILY CARL Administration Potassium Chloride 40 meq 06/23/22 02:25 Potassium Chloride Er 20 Meq Tab.Er.Prt PO 06/23/23 02:24 DAILY PRN Hypokalemia Sertraline HCl 100 mg 06/23/22 09:00 06/24/22 09:14 Sertraline 100 Mg Tablet PO 06/23/23 08:59 Not Given DAILY CARL Sodium Chloride 0 ml 06/22/22 19:36 06/22/22 23:20 Sodium Chloride 0.9 % 10 Ml Syringe IV-PUSH 06/22/23 19:35 10 ml PRN PRN Administration Flush Sodium Chloride 10 ml 06/23/22 10:45 06/24/22 12:29 Sodium Chloride 0.9 % 10 Ml Syringe IV-PUSH 06/23/23 10:44 Not Given Q8H CARL Sodium Chloride 0 ml 06/23/22 14:00 06/24/22 14:51 Sodium Chloride 0.9 % 10 Ml Syringe IV-PUSH 06/23/23 13:59 10 ml QSHIFT CARL Administration Sodium Chloride 10 ml 06/24/22 10:03 06/24/22 12:49 Sodium Chloride 0.9 % 10 Ml Syringe IV-PUSH 06/24/23 10:02 10 ml DAILY CARL Administration Sodium Chloride 10 ml 06/24/22 10:03 06/24/22 12:49 Sodium Chloride 0.9 % 10 Ml Vial.Pf INJECTION 06/24/23 10:02 10 ml DAILY CARL Administration Vitamin D 50 mcg 06/23/22 09:00 06/24/22 09:13 Cholecalciferol 25 Mcg (1,000 Units) Tablet PO 06/23/23 08:59 Not Given DAILY CARL A&P - Hospitalist Assessment/Plan (1) CAP (community acquired pneumonia): (2) Respiratory failure with hypercapnia: (3) Acute respiratory failure with hypoxia: (4) Aspiration pneumonia: (5) Seizure: (6) Down syndrome: (7) Diabetes: Plan . Documented By: Tiesha De MD 06/24/22 1640 Signed By: <Electronically signed by Tiesha De MD> 06/25/22 0126 [facility] Work Phone: [phone]) 762-225905-01-2023 Progress note Author Bam Stack [facility] June 24, 2022 4:02pmNote Date/TimeMay 2022 4:02[place] [address] Neurology Progress Note Signed Patient: Kelsey Graves MR#: [id number] : 1980 Acct:[id number] Age/Sex: 41 / F Adm Date: 3 Loc: Room: [address] [place] [address] Type: ADM IN Attending Dr: Tiesha De MD Copies to: ~ Date of Service: 06/24/2022 Exam Physical Exam Vital Signs: Temp Pulse Resp BP Pulse Ox O2 Del Method O2 Flow Rate 98.4 F 76 22 105/66 97 Nasal Cannula 4 06/24/22 12:00 06/24/22 15:00 06/24/22 12:15 06/24/22 15:00 06/24/22 12:00 06/24/22 12:00 06/24/22 12:00 FiO2 40 06/24/22 08:30 Objective Vital Signs Vital Signs: Vital Signs - 24 hr 06/23/22 16:00 06/23/22 16:05 06/23/22 16:14 Temperature Pulse Rate 78 74 Respiratory Rate 22 22 Blood Pressure 02 Sat by Pulse Oximetry Oxygen Delivery Method BiPAP Oxygen Flow Rate Fraction of Inspired Oxygen 06/23/22 16:00 06/23/22 17:41 06/23/22 19:45 Temperature 97.4 F L Pulse Rate 80 75 Respiratory Rate 19 28 H Blood Pressure 111/71 02 Sat by Pulse Oximetry 93 L Oxygen Delivery Method BiPAP BiPAP Oxygen Flow Rate Fraction of Inspired Oxygen 30 40 06/23/22 19:54 06/23/22 20:00 06/23/22 21:00 Temperature 97.9 F Pulse Rate 74 75 77 Respiratory Rate 30 H 14 28 H Blood Pressure 156/69 H 02 Sat by Pulse Oximetry 98 97 Oxygen Delivery Method BiPAP Oxygen Flow Rate Fraction of Inspired Oxygen 40 40 06/23/22 23:08 06/23/22 20:00 06/24/22 00:00 Temperature Pulse Rate 69 68 Respiratory Rate 28 H 13 Blood Pressure 110/62 02 Sat by Pulse Oximetry 97 91 L Oxygen Delivery Method BiPAP Nasal Cannula Oxygen Flow Rate 4 Fraction of Inspired Oxygen 40 40 06/24/22 01:00 06/24/22 01:35 06/24/22 00:00 Temperature Pulse Rate 72 68 Respiratory Rate 18 26 H Blood Pressure 95/71 L 02 Sat by Pulse Oximetry 90 L 97 Oxygen Delivery Method BiPAP Oxygen Flow Rate Fraction of Inspired Oxygen 40 40 06/24/22 00:00 06/24/22 03:03 06/24/22 03:29 Temperature Pulse Rate 86 78 Respiratory Rate Blood Pressure 148/72 H 148/72 H 02 Sat by Pulse Oximetry Oxygen Delivery Method BiPAP Oxygen Flow Rate Fraction of Inspired Oxygen 40 06/24/22 03:50 06/24/22 04:00 06/24/22 04:00 Temperature 98.3 F Pulse Rate 79 68 Respiratory Rate 18 Blood Pressure 141/60 H 128/56 L 02 Sat by Pulse Oximetry 96 Oxygen Delivery Method Oxygen Flow Rate Fraction of Inspired Oxygen 40 40 06/24/22 05:45 06/24/22 08:19 06/24/22 08:19 Temperature Pulse Rate 65 61 Respiratory Rate 20 20 Blood Pressure 02 Sat by Pulse Oximetry 95 Oxygen Delivery Method BiPAP Oxygen Flow Rate Fraction of Inspired Oxygen 40 06/24/22 08:00 06/24/22 08:00 06/24/22 10:00 Temperature 98.6 F Pulse Rate 62 60 Respiratory Rate 17 22 Blood Pressure 93/55 L 99/68 L 02 Sat by Pulse Oximetry 95 95 Oxygen Delivery Method Nasal Cannula Oxygen Flow Rate 4 Fraction of Inspired Oxygen 40 40 06/24/22 08:30 06/24/22 10:30 06/24/22 12:27 Temperature Pulse Rate 62 60 61 Respiratory Rate 18 Blood Pressure 99/68 L 128/79 02 Sat by Pulse Oximetry 96 Oxygen Delivery Method Oxygen Flow Rate Fraction of Inspired Oxygen 40 06/24/22 12:00 06/24/22 12:15 06/24/22 13:00 Temperature 98.4 F Pulse Rate 63 68 64 Respiratory Rate 20 22 Blood Pressure 128/79 128/79 02 Sat by Pulse Oximetry 97 Oxygen Delivery Method Nasal Cannula Oxygen Flow Rate 4 Fraction of Inspired Oxygen 06/24/22 14:00 05/01/23 15:00 Temperature Pulse Rate 77 76 Respiratory Rate Blood Pressure 105/66 105/66 02 Sat by Pulse Oximetry Oxygen Delivery Method Oxygen Flow Rate Fraction of Inspired Oxygen Labs 06/24/22 05:18 06/24/22 05:18 Assessment/Plan (1) Aspiration pneumonia: Code(s): J69.0 - Pneumonitis due to inhalation of food and vomit Status: Acute (2) UTI (urinary tract infection): Code(s): N39.0 - Urinary tract infection, site not specified Status: Acute (3) Seizure: Code(s): R56.9 - Unspecified convulsions Status: Acute (4) Down syndrome: Code(s): Q90.9 - Down syndrome, unspecified Status: Acute Plan SUBJECTIVE: Could not obtain much history. She is in the ICU. Nasal cannula in place. Noton any CPAP/BiPAP currently but was just a short while ago. Has sleep apnea andis compliant with CPAP at night at home butrecently it has been broken or something. She is not in pain. Her caregiver is here. She says that Kelsey is typically quite verbal but not so much currently. Could not obtain review ofsystems. EXAMINATION: On supplemental oxygen via nasal cannula. In no distress. Has dysmorphic features consistent with Down syndrome. Perhaps mildly increased work of breathing. I witnessed a few breath-holding spells which her caregiver says is normal. Visualized skin seems generally intact. She is alert. Speech not as sessed. Pupils are equal. Ocular motility is full. Tongue was midline. No apparent focal muscle weakness. Reflexes normal throughout. No tremors seen. Light touch is intact. No ataxic limb movements. DATA REVIEW: CT of the brain without contrast: unremarkable Chest x-ray: Evidence of pneumonia Urinalysis: Pending Vitamin B12: Pending Routine EEG: Pending Ammonia: Pending TSH: Pending CBC demonstrated leukocytosis which has improved today BMP is unremarkable Liver profile: Pending Routine EEG was slow ASSESSMENT: 1. Down syndrome, at baseline is reportedly quite verbal and communicative. 2. Encephalopathy could be related to urinary tract infection or pneumonia or hypercapnia 3. Seizure just prior to admission. Would assume an epileptic seizure, with seizure threshold potentially lowered by other health issues currently. She hasreported history of seizure-like events or nonepileptic events and was not on any antiepileptic medication prior to admission. PLAN: 1. Continue Keppra at 500 mg twice daily 2. Outpatient neurology follow-up; no other recommendations at this time Documented By: Bam Stack DO 06/24/22 1556 Signed By: <Electronically signed by Bam Stack DO> 06/24/22 1602 [facility] Work Phone: 1(139) 816-697205-01-2023 Progress note Author Nabil Holman [facility] June 24, 2022 2:15pmNote Date/TimeMay 2022 2:15[place] [address] Pulmonology Progress Note Signed Patient: Kelsey Graves MR#: [id number] : 1980 Acct:[id number] Age/Sex: 41 / F Adm Date: 3 Loc: Room: [address] [place] [address] Type: ADM IN Attending Dr: Tiesha De MD Copies to: ~ Date of Service: 06/24/2022 Subjective Subjective Narrative: Patient remained somnolent during critical care rounds this morning, with continuous BiPAP applied,comes agitated with stimuli, unable to obtain follow-up gases last night, I attempted right femoralaccess and was able to get small amount of blood 1 time but then aborted the attempt as patient wasvery uncomfortable. I took her off BiPAP as she was noted to have very coarse breathsounds and rhonchi bilaterally consistent with airway secretions. She did have an excellent cough effort after removal of BiPAP mask. She is oxygenating well on 4 L per nasal cannula now. Remains afebrile with stable hemodynamic status. She is more responsive since stopping BiPAP therapy. Her guardian was at the bedside with whom I had discussion about her status and prognosis. She has mildleukocytosis, kidney functions are adequate her carbon dioxide was 33.[address] yesterday showed low lung volumes with dependent atelectatic areas in all lobes bilaterally consistent with hypoventilation anddependent atelectasis. Exam Physical Exam Vital Signs: Temp Pulse Resp BP Pulse Ox O2 Del Method O2 Flow Rate 98.4 F 61 22 128/79 97 Nasal Cannula 4 06/24/22 12:00 06/24/22 12:27 06/24/22 12:15 06/24/22 12:27 06/24/22 12:00 06/24/22 12:00 06/24/22 12:00 FiO2 40 06/24/22 08:30 Narrative: General: Patient was initially somnolent with BiPAP on, became somewhat more responsive afterwards specially on a nasal cannula, followed commands including cough to commands. She appeared in no distress, morbidly obese, with Down syndrome features Eyes: Pupils equal round reactive to light HEENT: Normocephalic, atraumatic, oral mucosa moist Neck: Supple no lymphadenopathy or thyromegaly Cardiovascular: S1, S2, normal sounds, no murmurs or gallops noted, regular rhythm Lungs: Diminished breath sounds bilaterally with coarse inspiratory crackles andrhonchi, expiratorywheezes Extremities: Improving peripheral edema Neurologic: As detailed above Objective Intake and Output I&O - Last 24 Hours: Intake & Output 06/23/22 06/24/22 06/24/22 23:59 07:59 15:59 Intake Total 205 / 1140 1220 / 2320 1100 / 2320 Balance 205 / 1140 1220 / 2320 1100 / 2320 Weight 85.8 kg Labs 06/24/22 05:18 06/24/22 05:18 Microbiology Micro: Microbiology 06/23/22 06:15 Urine Culture - Preliminary Urine, Void 30,000 colonies/ml mixed bacterial skin contaminants 1 Day 06/22/22 20:48 Blood Culture - Preliminary Blood - Right Hand No Growth 1 Day 06/22/22 19:42 Blood Culture - Preliminary Blood - Left Hand No Growth 1 Day Assessment/Plan Assessment/Plan (1) Acute hypercapnic respiratory failure: Plan: Likely associated with hypoventilation, dependent atelectasis, and fluid overload (2) Obstructive sleep apnea: (3) Pulmonary vascular congestion: Plan: Overall fluid overload, part of appearance of vascular congestion is likely due to micro atelectatic changes (4) Obesity: Plan: Associated with hypoventilation (5) Acute hypoxemic respiratory failure: Plan: NIV (6) Psychiatric pseudoseizure: Plan: Neurology consulted Plan We will keep patient off BiPAP during the day as tolerated, encourage deep breathing cough, pulmonary toileting as tolerated including chest physiotherapy,BiPAP at night and as needed with increasinghypersomnolence, difficult to get blood gases from her hands we will monitor clinically at this point. Discussed at length with patient's guardian as mentioned before Documented By: Nabil Holman MD 06/24/22 1410 Signed By: <Electronically signed by Nabil Holman MD> 06/24/22 1415 [facility] Work Phone: [phone]) 183-166304-30-2023 Consult note Author Anabelle Blandon [facility] June 23, 2022 4:28pmNote Date/TimeApr2022 4:23[place] [address] Pulmonology Consult Note Signed Patient: Kelsey Graves MR#: [id number] : 1980 Acct:[id number] Age/Sex: 41 / F Adm Date: 3 Loc: 4 Room: [address] [place] [address] Type: ADM IN Attending Dr: Hugh Craft MD Copies to: MD Anabelle Barriga MD Rafik Massouh, MD~ HPI Date/Time of Consultation: Date of Service: 06/23/2022 Time of Service: 16:16 Consulting Provider: Anabelle Blandon Requesting Provider: Hugh Craft Reason for Consult: Hypercapnic respiratory failure on BiPAP History of Present Illness History of present illness: Patient lethargic, on BiPAP, unable to provide history or review of systems due to clinical condition/mental status. History was obtained from legal guardian at bedside and EMR. Patient is 41-year-old female with past medical history significant for Down's syndrome, hypertension, obesity, hypothyroidism, pseudoseizures, and obstructivesleep apnea who lives at a care home was brought to the emergency room by EMS due to seizures at his care home. Legal guardian states thatthere has been a mechanical issue with patient's CPAP at a care home and patient was not able touse it as it was malfunctioning. Following admission to the hospital and treatment with antiseizure medications, patient became lethargic, arterial bloodgas on the floor showed hypercapnic respiratory failure, patient was transferredto stepdown unit and was initiated on BiPAP. Review of Systems Review of Systems Unobtainable due to mental status and Unobtainable due to mental condition PMFSH Vaccinated for COVID-19?: Yes Medical History (Updated 06/23/22 @ 16:27 by Anabelle Blandon MD) Down syndrome HTN (hypertension) Hypothyroid Social History Smoking Status: Never smoker Substance Use Type: None Meds Medications and Allergies Allergies diazepam Allergy (Verified 06/22/22 19:37) Unknown Reaction Home Medications Lactobacillus acidoph-L.bulgaricus 1 million cell tablet (Floranex) 1 tab PO DAILY 12/28/18 [History Confirmed 06/22/22] acetaminophen 325 mg capsule 650 mg PO Q6H PRN Pain 12/28/18 [History Confirmed 06/22/22] calcium polycarbophil 625 mg tablet 625 mg PO DAILY 12/28/18 [History Confirmed 06/22/22] cetirizine 10 mg tablet 10 mg PO DAILY 12/28/18 [History Confirmed 06/22/22] cholecalciferol (vitamin D3) 50 mcg (2,000 unit) capsule (Vitamin D3) 2,000 unitPO DAILY 12/28/18 [History Confirmed 06/22/22] cranberry 500 mg capsule 500 mg PO DAILY PRN Bladder Spasms 12/28/18 [History Confirmed 06/22/22] lactulose 10 gram/15 mL oral solution 15 ml PO BID 12/28/18 [History Confirmed 06/22/22] levothyroxine 75 mcg tablet 75 mcg PO DAILY 12/28/18 [History Confirmed 06/22/22] multivitamin (One-A-Day Essential tablet) 1 tab PO DAILY 12/28/18 [History Confirmed 06/22/22] simvastatin 20 mg tablet 20 mg PO HS 12/28/18 [History Confirmed 06/22/22] cephalexin 500 mg capsule 500 mg PO 3XW 12/17/20 [History Confirmed 06/22/22] fluticasone propionate 50 mcg/actuation nasal spray,suspension 1 spray intranasal DAILY 12/17/20 [History Confirmed 06/22/22] magnesium hydroxide 400 mg/5 mL oral suspension (Milk of Magnesia) 15 ml PO BID PRN Constipation 12/17/20 [History Confirmed 06/22/22] nystatin 100,000 unit/gram topical powder (Nyamyc) 1 applic topical BID 12/17/20[History Confirmed 06/22/22] sertraline 100 mg tablet 100 mg PO DAILY 12/17/20 [History Confirmed 06/22/22] ammonium lactate 12 % lotion 1 applic topical BID 06/22/22 [History Confirmed 06/22/22] hydroxyzine HCl 50 mg tablet 50 mg PO HS PRN Insomnia 06/22/22 [History Confirmed 06/22/22] metformin 500 mg tablet,extended release 24 hr 500 mg PO QPM 06/22/22 [History Confirmed 06/22/22] Exam Physical Exam Vital Signs: Temp Pulse Resp BP Pulse Ox O2 Del Method O2 Flow Rate 96.9 F L 74 22 106/70 97 BiPAP 30 06/23/22 12:00 06/23/22 16:14 06/23/22 16:14 06/23/22 12:00 06/23/22 12:05 06/23/22 16:00 06/23/22 09:50 FiO2 30 06/23/22 12:05 Narrative: - General: General features consistent with Down's syndrome. Patient on BiPAP, drowsy. -HEENT: Webbed neck. Dry oral mucosa -Eyes: Normal conjunctive a -Respiratory: On BiPAP,+ abdominal breathing, tachypneic, variable tidal volume on BiPAP machine. -Cardiovascular: Heart regular rate and rhythm, S1/S2 normal. No gallop. -GI: Abdomen obese soft nontender distended. Bowel sounds present. -Lower extremities: Mild pedal edema -[employer]: Unable to assess due to mental status/clinical condition Results Intake and Output I&O - Last 24 Hours: Intake & Output 06/23/22 06/23/22 06/23/22 07:59 15:59 23:59 Intake Total 730 / 730 0 / 730 Balance 730 / 730 0 / 730 Weight 90 kg Labs 06/23/22 06:34 06/23/22 06:34 Microbiology Micro: 06/23/22 06:15 Urine Culture - Pending Urine, Void 06/22/22 19:54 SARS-CoV-2, Influenza & RSV (PCR) - Final Nasopharyngeal 06/22/22 20:48 Blood Culture - Pending Blood - Right Hand 06/22/22 19:42 Blood Culture - Pending Blood - Left Hand Assessment/Plan (1) Acute hypercapnic respiratory failure: Plan: Possibly due to vascular congestion Change BiPAP settings to 14 over 6 cm H2O and rate of 12, increased FiO2 to 40%,titrate as needed to keep SPO2> 92% (2) Obstructive sleep apnea: Plan: Nonfunctional on CPAP, this should be addressed on discharge. (3) Pulmonary vascular congestion: Plan: Started on furosemide. Chest CT reviewed by myself, evidence of groun-dglass opacification, likely due to early pulmonary edema, underlying viral pneumonia also possible. (4) Obesity: (5) Acute hypoxemic respiratory failure: Plan: NIV (6) Psychiatric pseudoseizure: Plan: Neurology consulted Plan - Continue BiPAP 07/08 with a rate of 12. -Currently requiring 40% FiO2 with BiPAP. -Repeat ABGs on above settings, may take BiPAP off around mealtime once pH has normalized. -Back on BiPAP overnight tonight -DVT prophylaxis Discussed with nursing staff Documented By: Anabelle Blandon MD 06/23/22 161 6 Signed By: <Electronically signed by Anabelle Blandon MD> 06/23/22 1628 [facility] Work Phone: [phone] Consult note Author Aryan Villarreal [facility] June 23, 2022 2:34pmNote Date/TimeApril 2022 1:04pm[place] [address] Neurology Consult Note Signed Patient: Kelsey Graves MR#: [id number] : 1980 Acct:[id number] Age/Sex: 41 / F Adm Date: 3 Loc: Room: [address] [place] [address] Type: ADM IN Attending Dr: Hugh Craft MD Copies to: MD Aryan Barriga DO Rafik Massouh, MD~ HPI Consult Date: 06/23/22 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 The patient has a past medical history of Down syndrome, hypertension, hypothyroidism, obstructive sleep apnea and pseudoseizures. She was previously on clonazepam but this was discontinued a year ago and she does not currently take any antiepileptics. Shepresents for evaluation of generalized tonic-clonic activity that presented yesterday and lasted less than 1 minute. She did not necessarily have a postictal period thereafter but was unfortunately noted to have an oxygen saturation of 88% on room air and was brought to the emergency department for further evaluation. Her recently her CPAP machine has not been working well andshe has had a mild productive cough andmildly elevated temperature. In the emergency department she did have a chest x-ray which was consistent with pneumonia and last night the patient was further evaluated by the medical service and moved to the progressive unit as her condition seem to have deteriorated. No further seizure-like activity has been noted while the patient has been in the hospital. The patient was started on Keppra by the primary service and a CTscan of the brain was requested which I agree with. Patient has just returned from CAT scan when I am in the room talking with her and the patient's power of assistant district attorney. We reviewed that the patient's condition has deteriorated over the course of the last week and largely seems to be respiratory in nature. No further seizure-like activity seen today by the caregivers Review of Systems Review of Systems Unobtainable due to mental status and Unobtainable due to mental condition PMFSH Vaccinated for COVID-19?: Yes Medical History (Updated 06/23/22 @ 10:47 by Hugh Craft MD) Down syndrome HTN (hypertension) Hypothyroid Social History Smoking Status: Never smoker Substance Use Type: None Meds Medications and Allergies Allergies diazepam Allergy (Verified 06/22/22 19:37) Unknown Reaction Home Medications Lactobacillus acidoph-L.bulgaricus 1 million cell tablet (Floranex) 1 tab PO DAILY 12/28/18 [History Confirmed 06/22/22] acetaminophen 325 mg capsule 650 mg PO Q6H PRN Pain 12/28/18 [History Confirmed 06/22/22] calcium polycarbophil 625 mg tablet 625 mg PO DAILY 12/28/18 [History Confirmed 06/22/22] cetirizine 10 mg tablet 10 mg PO DAILY 12/28/18 [History Confirmed 06/22/22] cholecalciferol (vitamin D3) 50 mcg (2,000 unit) capsule (Vitamin D3) 2,000 unitPO DAILY 12/28/18 [History Confirmed 06/22/22] cranberry 500 mg capsule 500 mg PO DAILY PRN Bladder Spasms 12/28/18 [History Confirmed 06/22/22] lactulose 10 gram/15 mL oral solution 15 ml PO BID 12/28/18 [History Confirmed 06/22/22] levothyroxine 75 mcg tablet 75 mcg PO DAILY 12/28/18 [History Confirmed 06/22/22] multivitamin (One-A-Day Essential tablet) 1 tab PO DAILY 12/28/18 [History Confirmed 06/22/22] simvastatin 20 mg tablet 20 mg PO HS 12/28/18 [History Confirmed 06/22/22] cephalexin 500 mg capsule 500 mg PO 3XW 12/17/20 [History Confirmed 06/22/22] fluticasone propionate 50 mcg/actuation nasal spray,suspension 1 spray intranasal DAILY 12/17/20 [History Confirmed 06/22/22] magnesium hydroxide 400 mg/5 mL oral suspension (Milk of Magnesia) 15 ml PO BID PRN Constipation 12/17/20 [History Confirmed 06/22/22] nystatin 100,000 unit/gram topical powder (Nyamyc) 1 applic topical BID 12/17/20[History Confirmed 06/22/22] sertraline 100 mg tablet 100 mg PO DAILY 12/17/20 [History Confirmed 06/22/22] ammonium lactate 12 % lotion 1 applic topical BID 06/22/22 [History Confirmed 06/22/22] hydroxyzine HCl 50 mg tablet 50 mg PO HS PRN Insomnia 06/22/22 [History Confirmed 06/22/22] metformin 500 mg tablet,extended release 24 hr 500 mg PO QPM 06/22/22 [History Confirmed 06/22/22] Exam Physical Exam Vital Signs: Temp Pulse Resp BP Pulse Ox O2 Del Method O2 Flow Rate 96.9 F L 82 11 L 106/70 97 BiPAP 30 06/23/22 12:00 06/23/22 12:18 06/23/22 12:18 06/23/22 12:00 06/23/22 12:05 06/23/22 12:00 06/23/22 09:50 FiO2 30 06/23/22 12:05 Narrative: Patient is awake and alert and has just returned from CAT scan and had BiPAP placed Patient is somewhat irritated with the BiPAP Cranial nerves appear intact Strength is grossly intact x4 extremities and is at least 3/5. Patient noncompliant with formal power testing. Sensation is intact to painful stimulus x4 extremities Reflexes are depressed throughout Coordination is not able to be tested Gait is not able to be safely tested Results Laboratory Findings 06/23/22 06:34 06/23/22 06:34 Diagnostic Findings Imaging/Impressions: ITS Impressions Chest X-Ray 06/22/22 19:41 IMPRESSION: Diffuse groundglass parenchymal densities. Hilar prominence. Similar borderline cardiomegaly. Impression dictated by: Pardeep Montoya M.D.06/23/2022 8:11 AM Dictation Location: [place] [address] Assessment/Plan (1) Aspiration pneumonia: Code(s): J69.0 - Pneumonitis due to inhalation of food and vomit Status: Acute (2) UTI (urinary tract infection): Code(s): N39.0 - Urinary tract infection, site not specified Status: Acute (3) Seizure: Code(s): R56.9 - Unspecified convulsions Status: Acute (4) Down syndrome: Code(s): Q90.9 - Down syndrome, unspecified Status: Acute Plan It is my impression that the patient has altered mental status and has suffered a seizure recently just prior to admission. I am concerned that the altered mental status is a result of community-acquired pneumonia and urinary tract infection. The patient has a known history of pseudoseizures but more likely has a combination of epileptic and nonepileptic seizures as it is very common. Patient wasnot on antiepileptic medication prior to admission. The patient wasrecently started on Keppra by the primary service and I think this is a very reasonable choice. We will need to watch for agitation in this patient population however. Work-up: CT of the brain without contrast: unremarkable Chest x-ray: Evidence of pneumonia Urinalysis: Pending Vitamin B12: Pending Routine EEG: Pending Ammonia: Pending TSH: Pending CBC demonstrated leukocytosis which has improved today BMP is unremarkable Liver profile: Pending Plan: Continue Keppra Obtain CT brain without contrast Obtain EEG and further evaluation as above Seizure precautions We will follow Thank you for consult Documented By: Aryan Villarreal DO 3 [id number] Signed By: <Electronically signed by Aryan Villarreal DO> 06/23/22 2131 [facility] Work Phone: [phone]) 983-672604-30-2023 Progress note Author Hugh Craft [facility] June 23, 2022 10:51amNote Date/TimeApril 2022 10:51[place] [id number] Hospitalist Progress Note Signed Patient: Kelsey Graves MR#: [id number] : 1980 Acct:[id number] Age/Sex: 41 / F Adm Date: 3 Loc: Room: [address] [place] [address] Type: ADM IN Attending Dr: Hugh Craft MD Copies to: ~ Date of Service: 06/23/2022 Subjective Subjective Narrative: Patient continued to have respiratory distress, tachypnea and hypoxemia. I transferred the patient to progressive care unit and I urgently evaluated her upon the progressive care unit. Patient has Down syndrome. Unable to communicatebut able to follow simple commands. Able to nod her head. Her guard jamel is at the bedside. Exam Physical Exam Vital Signs: Temp Pulse Resp BP Pulse Ox O2 Del Method O2 Flow Rate 97.8 F 88 24 117/80 99 BiPAP 30 06/23/22 09:30 06/23/22 10:05 06/23/22 10:05 06/23/22 09:30 06/23/22 10:05 06/23/22 09:50 06/23/22 09:50 FiO2 30 06/23/22 10:05 Narrative: Patient is in moderate respiratory distress. Respiratory is about 26. She is on BiPAP. She is morbidly obese. Neck is short. Chest exam revealed bilateral rhonchi. Heart is regular, tachycardic. Abdomen is soft. Increased abdominal girth, no apparent tenderness otherwise her abdominal exam is limited otherwise. Lower extremitiestrace nonpitting edema. Neurologically the patient is awake. She is able to answer questions by nodding her head sideway. She is able to follow simple commands. Cognitive loss secondary to Down syndrome Objective Lab Results 06/23/22 06:34 06/23/22 06:34 Microbiology Results Microbiology 06/22/22 19:54 Nasopharyngeal SARS-CoV-2, Influenza & RSV (PCR) - Final ABG Interpretation ABG results: 06/23/22 09:37 ABG pH 7.30 L ABG pCO2 62.2 H* ABG pO2 128.2 H* ABG HCO3 30.0 H ABG Total CO2 31.9 H ABG O2 Saturation 98.4 ABG O2 Content 8.8 ABG Base Excess 1.9 Meds Allergies and Active Meds Allergies diazepam Allergy (Verified 06/22/22 19:37) Unknown Reaction Active Meds: Active Medications Generic Name Dose Route Start Last Admin Trade Name Freq PRN Reason Stop Dose Admin Acetaminophen 650 mg 06/23/22 02:25 Acetaminophen 325 Mg Tablet PO 06/23/23 02:24 Q6HR PRN Pain Scale 1 - 3 or fever Albuterol/Ipratropium 3 ml 06/23/22 08:00 06/23/22 09:41 Ipratropium/Albuterol 0.5-3 Mg 3 Ml Ampul.Neb INHALATION 06/23/23 07:59 NotGiven QID.RESP CARL Ammonium Lactate 1 applic 06/23/22 09:00 Ammonium Lactate 12% Lot 226 Gm Bottle TOPICAL 06/23/23 08:59 BID CARL Atorvastatin Calcium 10 mg 06/23/22 22:00 Atorvastatin 10 Mg Tablet PO 06/23/23 21:59 HS [facility] Calcium Polycarbophil 625 mg 06/23/22 09:00 06/23/22 10:43 Calcium Polycarbophil 625 Mg Tablet PO 06/23/23 08:59 Not Given DAILY [facility] Dextrose 0 gm 06/23/22 10:37 Dextrose 50% In Water 25 Gm/50 Ml Syringe IV-PUSH 06/23/23 10:36 PRN PRN Hypoglycemia Enoxaparin Sodium 40 mg 06/23/22 10:00 Enoxaparin 40 Mg/0.4 Ml Syringe SUBCUT 06/23/23 09:59 DAILY@10 [facility] Fluticasone Propionate 1 spray 06/23/22 09:00 06/23/22 10:44 Fluticasone Propionate [place] 120 [place]/16 Gm Bottle INTRANASAL 06/23/23 08:59 Not Given DAILY [facility] Glucose 0 gm 06/23/22 10:37 Dextrose 40% Gel 15 Gm Tube PO 06/23/23 10:36 PRN PRN Hypoglycemia Guaifenesin/Dextromethorphan 10 ml 06/23/22 02:25 Guaif/Dextromethorphan Syrup 10 Ml Udc PO 06/23/23 02:24 Q8H PRN Cough Hydroxyzine Pamoate 50 mg 06/23/22 02:37 Hydroxyzine Pamoate 50 Mg Capsule PO 06/23/23 02:36 HS PRN Insomnia Azithromycin 500 mg in 250 mls @ 250 mls/hr 06/23/22 23:00 Zithromax IV Q24H [facility] Piperacillin Sod/Tazobactam Sod 3.375 gm in 100 mls @ 200 mls/hr 06/23/22 10:45 Zosyn IV Q6H [facility] Levetiracetam 500 mg/ Dextrose 105 mls @ 420 mls/hr 06/23/22 10:40 IV 06/23/23 10:39 BID [facility] Lactated Ringer's 1,000 mls @ 75 mls/hr 06/23/22 10:45 Lactated Ringers IV 06/23/23 10:44 .[id number] [facility] Insulin Aspart 0 units 06/23/22 12:00 Insulin Aspart 300 Units/3 Ml Insuln.Pen SUBCUT 06/23/23 11:59 Q6HR [facility] Protocol Lact Acid/Bifidobact/Lact [place]/Streptoc Th 1 cap 06/23/22 09:00 06/23/22 10:43 L. Acidophilus/Strept/[place] 1 Cap Capsule PO 06/23/23 08:59 Not Given DAILY [facility] Lactulose 10 gm 06/23/22 09:00 06/23/22 10:44 Lactulose 20 Gm/30 Ml Udc PO 06/23/23 08:59 Not Given BID [facility] Levothyroxine Sodium 75 mcg 06/23/22 06:30 06/23/22 06:18 Levothyroxine 75 Mcg Tablet PO 06/23/23 06:29 75 mcg DAILY@0630 [facility] Administration Magnesium Hydroxide 15 ml 06/23/22 02:28 Magnesium Hydroxide Susp 30 Ml Udc PO 06/23/23 02:27 BID PRN Constipation Metformin HCl 250 mg 06/23/22 08:00 06/23/22 10:43 Metformin 500 Mg Tablet PO 06/23/23 07:59 Not Given BID.WITH.MEALS [facility] Multivitamins 1 tab 06/23/22 09:00 06/23/22 10:43 Multivitamin 1 Tab Tablet PO 06/23/23 08:59 Not Given DAILY [facility] Nystatin 1 applic 06/23/22 09:00 Nystatin 100,000 Unit/Gram Powder 15 Gm Bottle TOPICAL 06/23/23 08:59 BID CARL Oxycodone/Acetaminophen 1 tab 06/23/22 02:25 Oxycodone/Acetaminophen 5-325 Mg Tablet PO Q4H PRN Pain Scale 4 - 7 Potassium Chloride 40 meq 06/23/22 02:25 Potassium Chloride Er 20 Meq Tab.Er.Prt PO 06/23/23 02:24 DAILY PRN Hypokalemia Sertraline HCl 100 mg 06/23/22 09:00 06/23/22 10:44 Sertraline 100 Mg Tablet PO 06/23/23 08:59 Not Given DAILY CARL Sodium Chloride 0 ml 06/22/22 19:36 06/22/22 23:20 Sodium Chloride 0.9 % 10 Ml Syringe IV-PUSH 06/22/23 19:35 10 ml PRN PRN Administration Flush Sodium Chloride 10 ml 06/23/22 10:45 Sodium Chloride 0.9 % 10 Ml Syringe IV-PUSH 06/23/23 10:44 Q8H CARL Sodium Chloride 0 ml 06/23/22 14:00 Sodium Chloride 0.9 % 10 Ml Syringe IV-PUSH 06/23/23 13:59 QSHIFT CARL Vitamin D 50 mcg 06/23/22 09:00 06/23/22 10:43 Cholecalciferol 25 Mcg (1,000 Units) Tablet PO 06/23/23 08:59 Not Given DAILY [facility] A&P - Hospitalist Assessment/Plan (1) CAP (community acquired pneumonia): (2) UTI (urinary tract infection): (3) Hypoxemia: (4) Psychiatric pseudoseizure: (5) Respiratory failure with hypercapnia: (6) Acute respiratory failure with hypoxia: (7) Aspiration pneumonia: (8) Pneumonitis: (9) Seizure: (10) Down syndrome: (11) Diabetes: Plan Acute hypoxic and hypercapnic respiratory failure Aspiration pneumonia, probable pneumonitis, probable ARDS I transferred the patient urgently to the progressive care unit I started her on BiPAP 06/09. Subsequently I changed it to 08/09 due to persistent hypercapnia with mild acidosis. Patient had been already started on Zithromax. I discontinued the Rocephin and started Zosyn to cover anaerobes gram-negative Pseudomonas I requested pulmonary evaluation I made patient n.p.o. due to the use of BiPAP I requested CT chest Seizure precaution. Telemetry monitoring. I requested Sim catheter to monitor urine output closely I discussed goals of care with the guardian at the bedside. We discussed the possible need of intubation and vent support. She wants her to be full code at this time but she will think about it overnight. Defer further needed diagnostic and therapeutic intervention related to her pulmonary status to pulmonary team. Reported seizure I started patient on Keppra intravenously Requested seizure precaution. Requested CT head to rule out intracranial bleed Requested a neuro evaluation Diabetes Patient was made n.p.o. I started patient on LR with a sliding scale coverage every 6 hours. DVT prophylaxis Lovenox. Patient continues to be in a critical state of condition. Patient may get worsebefore she gets better. In addition her status is a dynamic and evolutionary therefore the aforementioned assessment andplan may or may not be complete or conclusive. The patient likely will require to have additional work- up, investigation, diagnostic and therapeutic intervention as well as specialist consultation that will be determined based on the clinical progression and follow-up test result. I spent about 50 minutes in the critical care evaluation, assessment and treatment of this patient as part Documented By: Hugh Craft MD 06/23/22 1044 Signed By: <Electronically signed by Hugh Craft MD> 06/23/22 1051 [facility] Work Phone: [phone]) 145-203104-30-2023 History and physical note Author Abel Deleon [facility] June 23, 2022 3:48amNote Date/TimeApril 2022 2:30[place] [address] Hospitalist H&P Signed with Addenda Patient: Kelsey Graves MR#: [id number] : 1980 Acct:[id number] Age/Sex: 41 / F Adm Date: 3 Loc: Room: [address] [place] [address] Type: ADM IN Attending Dr: Abel Deleon MD Copies to: MD Delgado Edward MD~ ADDENDUM1 UA positive for UTI. Pancultures sent Addendum Documented By: Abel Deleon MD 06/23/22 1377 Addendum Signed By: <Electronically signed by Abel Deleon MD> 06/23/22 0347 HPI DATE OF EXAMINATION: 06/23/22 CHIEF COMPLAINT: seizure, hypoxia HISTORY OF PRESENT ILLNESS: Patient is a 41-year-old lady past medical history of Down syndrome, hypertension, hypothyroidism, pseudoseizures was brought to the emergency department by EMS due to seizures. Patient is awake and alert but is not a goodhistorian. History obtained from her legal guardian on the phone. She stated that she was not with the patient but she was told that patient had seizures while having her dinnerwhich lasted for 1 minute and lost consciousness but is not postictal. She told them to send the patient to ED. She noted that patienthas not been on CPAP as it was not working. 5 days ago patient was found to be hypoxic and was taken to her primary care physician and was started on a inhaler. Uponarrival in the ED patient was able to identify her family membersbut did not have any other seizures. Labs done in the ED showed leukocytosis WBC 14 with normal chemistry. Prolactin 24.9. Patient does not appear to be inany respiratory distress but is requiring 2 L nasal cannula to keep saturationsabove 90. Chest x-ray showed signs of pneumonia. Patient denies any chest pain, cough, shortness ofbreath, nausea, vomiting, abdominal pain, fever and chills Review of Systems Review of Systems All other systems reviewed & are negative unless noted below or in HPI PMFSH Vaccinated for COVID-19?: Yes Medical History (Updated 06/22/22 @ 23:01 by Swapnil Quigley, DO) Down syndrome HTN (hypertension) Hypothyroid Social History Smoking Status: Never smoker Substance Use Type: None Meds Medications and Allergies Allergies diazepam Allergy (Verified 06/22/22 19:37) Unknown Reaction Home Medications Lactobacillus acidoph-L.bulgaricus 1 million cell tablet (Floranex) 1 tab PO DAILY 12/28/18 [History Confirmed 06/22/22] acetaminophen 325 mg capsule 650 mg PO Q6H PRN Pain 12/28/18 [History Confirmed 06/22/22] calcium polycarbophil 625 mg tablet 625 mg PO DAILY 12/28/18 [History Confirmed 06/22/22] cetirizine 10 mg tablet 10 mg PO DAILY 12/28/18 [History Confirmed 06/22/22] cholecalciferol (vitamin D3) 50 mcg (2,000 unit) capsule (Vitamin D3) 2,000 unitPO DAILY 12/28/18 [History Confirmed 06/22/22] cranberry 500 mg capsule 500 mg PO DAILY PRN Bladder Spasms 12/28/18 [History Confirmed 06/22/22] lactulose 10 gram/15 mL oral solution 15 ml PO BID 12/28/18 [History Confirmed 06/22/22] levothyroxine 75 mcg tablet 75 mcg PO DAILY 12/28/18 [History Confirmed 06/22/22] multivitamin (One-A-Day Essential tablet) 1 tab PO DAILY 12/28/18 [History Confirmed 06/22/22] simvastatin 20 mg tablet 20 mg PO HS 12/28/18 [History Confirmed 06/22/22] cephalexin 500 mg capsule 500 mg PO 3XW 12/17/20 [History Confirmed 06/22/22] fluticasone propionate 50 mcg/actuation nasal spray,suspension 1 spray intranasal DAILY 12/17/20 [History Confirmed 06/22/22] magnesium hydroxide 400 mg/5 mL oral suspension (Milk of Magnesia) 15 ml PO BID PRN Constipation 12/17/20 [History Confirmed 06/22/22] nystatin 100,000 unit/gram topical powder (Nyamyc) 1 applic topical BID 12/17/20[History Confirmed 06/22/22] sertraline 100 mg tablet 100 mg PO DAILY 12/17/20 [History Confirmed 06/22/22] ammonium lactate 12 % lotion 1 applic topical BID 06/22/22 [History Confirmed 06/22/22] hydroxyzine HCl 50 mg tablet 50 mg PO HS PRN Insomnia 06/22/22 [History Confirmed 06/22/22] metformin 500 mg tablet,extended release 24 hr 500 mg PO QPM 06/22/22 [History Confirmed 06/22/22] Exam Physical Exam Vital Signs: Temp Pulse Resp BP Pulse Ox O2 Del Method O2 Flow Rate 98.4 F 78 20 109/72 97 Simple Mask 2 06/23/22 00:46 06/23/22 02:15 06/23/22 02:15 06/23/22 00:46 06/23/22 02:15 06/23/22 00:46 06/23/22 00:46 FiO2 30 06/23/22 02:15 Narrative: General: Awake, alert, oriented x3 not in acute distress HEENT: Normocephalic, atraumatic, PERRLA, normal mucosa Cardiovascular: Regular rate and rhythm , S1-S2 heard, no murmurs or gallops Lungs: No wheezing or rhonchi heard Gastrointestinal: Soft, nontender, bowel sounds heard Extremities: No edema Neurological: no sensory or motor deficit Skin: Dry and warm, no rashes or lesions Psych: Normal mood and affect Results Lab Results Labs: Laboratory Last Values Corrected WBC 14.0 X10E3/uL (3.8-11.6) H 06/22/22 19:42 Uncorrected WBC Count 14.0 x10E3/uL (3.8-11.6) H 06/22/22 19:42 RBC 4.86 X10E6/uL (3.60-5.00) 06/22/22 19:42 Hgb 14.0 g/dL (11.8-15.4) 06/22/22 19:42 Hct 43.8 % (34.0-46.4) 06/22/22 19:42 MCV 90.1 fl (80-100) 06/22/22 19:42 MCH 28.8 pg (24.7-34.3) 06/22/22 19:42 MCHC 32.0 g/dL (32.0-35.0) 06/22/22 19:42 RDW 17.2 % (11.9-15.3) H 06/22/22 19:42 Plt Count 303 x10E3/uL (150-450) 06/22/22 19:42 MPV 9.2 fl (6.3-10.7) 06/22/22 19:42 Neut % (Auto) 77.1 % (.) 06/22/22 19:42 Lymph % (Auto) 14.4 % (.) 06/22/22 19:42 [place] % (Auto) 6.2 % (.) 06/22/22 19:42 Eos % (Auto) 1.0 % (.) 06/22/22 19:42 Baso % (Auto) 1.3 % (.) 06/22/22 19:42 Nucleat RBC Rel Count 0.4 /100 WBC (0-0.5) 06/22/22 19:42 Neut # (Auto) 10.8 x10E3/uL (1.8-7.7) H 06/22/22 19:42 Lymph # (Auto) 2.0 x10E3/uL (1.00-4.8) 06/22/22 19:42 [place] # (Auto) 0.9 x10E3/uL (0.0-0.8) H 06/22/22 19:42 Eos # (Auto) 0.1 x10E3/uL (0.0-0.45) 06/22/22 19:42 Baso # (Auto) 0.2 x10E3/uL (0.0-0.2) 06/22/22 19:42 Monocyte Dist Width 22.60 % (0.00-20.00) H 06/22/22 19:42 Sample Site Umbilical cord 06/22/22 20:06 VBG pH 7.35 (7.32-7.43) 06/22/22 20:06 VBG pCO2 57.7 mmHg (38.0-50.0) H 06/22/22 20:06 VBG pO2 72.8 mmHg (35.0-45.0) H 06/22/22 20:06 VBG HCO3 31.2 mmol/L (23.0-29.0) H 06/22/22 20:06 VBG Total CO2 33.0 mmol/L (24.0-29.0) H 06/22/22 20:06 VBG O2 Saturation 93.7 % (73.0-76.0) H* 06/22/22 20:06 VBG O2 Content 8.9 mmol/L (6.6-9.7) 06/22/22 20:06 VBG Base Excess 3.9 mmol/L (-3.0-3.0) H 06/22/22 20:06 FiO2 21 % 06/22/22 20:06 Critical Value 06/22/22 20:06 PHA Creatinine Clear 80.71 06/22/22 19:42 Sodium 137 mmol/L (136-145) 06/22/22 19:42 Potassium 4.7 mmol/L (3.5-5.1) 06/22/22 19:42 Chloride 99 mmol/L (98-107) 06/22/22 19:42 Carbon Dioxide 31.1 mmol/L (21.0-31.0) H 06/22/22 19:42 Anion Gap 11.6 mEq/L (6.0-15.0) 06/22/22 19:42 BUN 19 mg/dL (7-25) 06/22/22 19:42 Creatinine 0.92 mg/dL (0.60-1.20) 06/22/22 19:42 Est GFR (CKD-EPI) > 60.0 mL/Min 06/22/22 19:42 Glucose 132 mg/dL (70-100) H 06/22/22 19:42 Lactic Acid 1.1 mmol/L (0.5-2.2) 06/22/22 19:41 Calcium 9.4 mg/dL (8.6-10.3) 06/22/22 19:42 B-Natriuretic Peptide 32.0 pg/mL (5-100) 06/22/22 19:42 Prolactin 24.90 ng/mL (3.34-26.72) 06/22/22 19:42 SARS-CoV-2 Rap RNA(RT-PCR) Negative (Negative) 06/22/22 19:54 Microbiology Results Micro: Microbiology - Results from entire visit 06/22/22 19:54 Nasopharyngeal SARS-CoV-2, Influenza & RSV (PCR) - Final ABG Interpretation ABG results: 06/22/22 20:06 VBG pH 7.35 VBG pCO2 57.7 H VBG pO2 72.8 H VBG HCO3 31.2 H VBG Total CO2 33.0 H VBG O2 Saturation 93.7 H* VBG Base Excess 3.9 H A&P - Hospitalist Assessment/Plan (1) CAP (community acquired pneumonia): (2) UTI (urinary tract infection): (3) Hypoxemia: (4) Psychiatric pseudoseizure: Plan Patient will be admitted to floor for further evaluation management She is hemodynamically stable, saturating 95% on 2 L nasal cannula. Patient does not usually use oxygen Labs showed leukocytosis with normal chemistries and lactic acid Chest x-ray showed signs of pneumonia Patient has been started on ceftriaxone and azithromycin in the ED, will continue Breathing treatments, Mucinex Continue home meds once verified Aspiration precautions Fall precautions DVT prophylaxis CODE STATUS full Documented By: Abel Deleon MD 06/23/22 0229 Signed By: <Electronically signed by Abel Deleon MD> 06/23/22 0340 [facility] Work Phone: Consult note Author Prince Villarreal [facility] June 23, 2022 2:34pmNote Date/TimeApril 2022 1:[place] [id number] Neurology Consult Note Signed Patient: Kelsey Graves MR#: [id number] : 1980 Acct:[id number] Age/Sex: 41 / F Adm Date: 3 Loc: Room: [address] [place] [address] Type: ADM IN Attending Dr: Hugh Craft MD Copies to: MD Aryan Barriga DO Rafik Massouh, MD~ HPI Consult Date: 06/23/22 [employer] 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 The patient has a past medical history of Down syndrome, hypertension, hypothyroidism, obstructive sleep apnea and pseudoseizures. She was previously on clonazepam but this was discontinued a year ago and she does not currently take any antiepileptics. Shepresents for evaluation of generalized tonic-clonic activity that presented yesterday and lasted less than 1 minute. She did not necessarily have a postictal period thereafter but was unfortunately noted to have an oxygen saturation of 88% on room air and was brought to the emergency department for further evaluation. Her recently her CPAP machine has not been working well andshe has had a mild productive cough andmildly elevated temperature. In the emergency department she did have a chest x-ray which was consistent with pneumonia and last night the patient was further evaluated by the medical service and moved to the progressive unit as her condition seem to have deteriorated. No further seizure-like activity has been noted while the patient has been in the hospital. The patient was started on Keppra by the primary service and a CTscan of the brain was requested which I agree with. Patient has just returned from CAT scan when I am in the room talking with her and the patient's power of assistant district attorney. We reviewed that the patient's condition has deteriorated over the course of the last week and largely seems to be respiratory in nature. No further seizure-like activity seen today by the caregivers Review of Systems Review of Systems Unobtainable due to mental status and Unobtainable due to mental condition PMFSH Vaccinated for COVID-19?: Yes Medical History (Updated 06/23/22 @ 10:47 by Hugh Craft MD) Down syndrome HTN (hypertension) Hypothyroid Social History Smoking Status: Never smoker Substance Use Type: None Meds Medications and Allergies Allergies diazepam Allergy (Verified 06/22/22 19:37) Unknown Reaction Home Medications Lactobacillus acidoph-L.bulgaricus 1 million cell tablet (Floranex) 1 tab PO DAILY 12/28/18 [History Confirmed 06/22/22] acetaminophen 325 mg capsule 650 mg PO Q6H PRN Pain 12/28/18 [History Confirmed 06/22/22] calcium polycarbophil 625 mg tablet 625 mg PO DAILY 12/28/18 [History Confirmed 06/22/22] cetirizine 10 mg tablet 10 mg PO DAILY 12/28/18 [History Confirmed 06/22/22] cholecalciferol (vitamin D3) 50 mcg (2,000 unit) capsule (Vitamin D3) 2,000 unitPO DAILY 12/28/18 [History Confirmed 06/22/22] cranberry 500 mg capsule 500 mg PO DAILY PRN Bladder Spasms 12/28/18 [History Confirmed 06/22/22] lactulose 10 gram/15 mL oral solution 15 ml PO BID 12/28/18 [History Confirmed 06/22/22] levothyroxine 75 mcg tablet 75 mcg PO DAILY 12/28/18 [History Confirmed 06/22/22] multivitamin (One-A-Day Essential tablet) 1 tab PO DAILY 12/28/18 [History Confirmed 06/22/22] simvastatin 20 mg tablet 20 mg PO HS 12/28/18 [History Confirmed 06/22/22] cephalexin 500 mg capsule 500 mg PO 3XW 12/17/20 [History Confirmed 06/22/22] fluticasone propionate 50 mcg/actuation nasal spray,suspension 1 spray intranasal DAILY 12/17/20 [History Confirmed 06/22/22] magnesium hydroxide 400 mg/5 mL oral suspension (Milk of Magnesia) 15 ml PO BID PRN Constipation 12/17/20 [History Confirmed 06/22/22] nystatin 100,000 unit/gram topical powder (Nyamyc) 1 applic topical BID 12/17/20[History Confirmed 06/22/22] sertraline 100 mg tablet 100 mg PO DAILY 12/17/20 [History Confirmed 06/22/22] ammonium lactate 12 % lotion 1 applic topical BID 06/22/22 [History Confirmed 06/22/22] hydroxyzine HCl 50 mg tablet 50 mg PO HS PRN Insomnia 06/22/22 [History Confirmed 06/22/22] metformin 500 mg tablet,extended release 24 hr 500 mg PO QPM 06/22/22 [History Confirmed 06/22/22] Exam Physical Exam Vital Signs: Temp Pulse Resp BP Pulse Ox O2 Del Method O2 Flow Rate 96.9 F L 82 11 L 106/70 97 BiPAP 30 06/23/22 12:00 06/23/22 12:18 06/23/22 12:18 06/23/22 12:00 06/23/22 12:05 06/23/22 12:00 06/23/22 09:50 FiO2 30 06/23/22 12:05 Narrative: Patient is awake and alert and has just returned from CAT scan and had BiPAP placed Patient is somewhat irritated with the BiPAP Cranial nerves appear intact Strength is grossly intact x4 extremities and is at least 3/5. Patient noncompliant with formal power testing. Sensation is intact to painful stimulus x4 extremities Reflexes are depressed throughout Coordination is not able to be tested Gait is not able to be safely tested Results Laboratory Findings 06/23/22 06:34 06/23/22 06:34 Diagnostic Findings Imaging/Impressions: ITS Impressions Chest X-Ray 06/22/22 19:41 IMPRESSION: Diffuse groundglass parenchymal densities. Hilar prominence. Similar borderline cardiomegaly. Impression dictated by: Pardeep Montoya M.D.06/23/2022 8:11 AM Dictation Location: [place] [address] Assessment/Plan (1) Aspiration pneumonia: Code(s): J69.0 - Pneumonitis due to inhalation of food and vomit Status: Acute (2) UTI (urinary tract infection): Code(s): N39.0 - Urinary tract infection, site not specified Status: Acute (3) Seizure: Code(s): R56.9 - Unspecified convulsions Status: Acute (4) Down syndrome: Code(s): Q90.9 - Down syndrome, unspecified Status: Acute Plan It is my impression that the patient has altered mental status and has suffered a seizure recently just prior to admission. I am concerned that the altered mental status is a result of community-acquired pneumonia and urinary tract infection. The patient has a known history of pseudoseizures but more likely has a combination of epileptic and nonepileptic seizures as it is very common. Patient wasnot on antiepileptic medication prior to admission. The patient wasrecently started on Keppra by the primary service and I think this is a very reasonable choice. We will need to watch for agitation in this patient population however. Work-up: CT of the brain without contrast: unremarkable Chest x-ray: Evidence of pneumonia Urinalysis: Pending Vitamin B12: Pending Routine EEG: Pending Ammonia: Pending TSH: Pending CBC demonstrated leukocytosis which has improved today BMP is unremarkable Liver profile: Pending Plan: Continue Keppra Obtain CT brain without contrast Obtain EEG and further evaluation as above Seizure precautions We will follow Thank you for consult Documented By: Aryan Villarreal DO [id number] Signed By: <Electronically signed by Aryan Villarreal DO> 06/23/22 1434 [facility] Work Phone: Consult note Author Anabelle Blandon [facility] June 23, 2022 4:28pmNote Date/TimeApril 2022 4:23[place] [address] Pulmonology Consult Note Signed Patient: Kelsey Graves MR#: [id number] : 1980 Acct:[id number] Age/Sex: 41 / F Adm Date: 3 Loc: Room: [address] [place] [address] Type: ADM IN Attending Dr: Hugh Craft MD Copies to: MD Anabelle Barriga MD Rafik Massouh, MD~ HPI Date/Time of Consultation: Date of Service: 06/23/2022 Time of Service: 16:16 Consulting Provider: Anabelle Blandon Requesting Provider: Hugh Craft Reason for Consult: Hypercapnic respiratory failure on BiPAP History of Present Illness History of present illness: Patient lethargic, on BiPAP, unable to provide history or review of systems due to clinical condition/mental status. History was obtained from legal guardian at bedside and EMR. Patient is 41-year-old female with past medical history significant for Down's syndrome, hypertension, obesity, hypothyroidism, pseudoseizures, and obstructivesleep apnea who lives at a care home was brought to the emergency room by EMS due to seizures at his care home. Legal guardian states thatthere has been a mechanical issue with patient's CPAP at a care home and patient was not able touse it as it was malfunctioning. Following admission to the hospital and treatment with antiseizure medications, patient became lethargic, arterial bloodgas on the floor showed hypercapnic respiratory failure, patient was transferredto stepdown unit and was initiated on BiPAP. Review of Systems Review of Systems Unobtainable due to mental status and Unobtainable due to mental condition PMFSH Vaccinated for COVID-19?: Yes Medical History (Updated 06/23/22 @ 16:27 by Anabelle Blandon MD) Down syndrome HTN (hypertension) Hypothyroid Social History Smoking Status: Never smoker Substance Use Type: None Meds Medications and Allergies Allergies diazepam Allergy (Verified 06/22/22 19:37) Unknown Reaction Home Medications Lactobacillus acidoph-L.bulgaricus 1 million cell tablet (Floranex) 1 tab PO DAILY 12/28/18 [History Confirmed 06/22/22] acetaminophen 325 mg capsule 650 mg PO Q6H PRN Pain 12/28/18 [History Confirmed 06/22/22] calcium polycarbophil 625 mg tablet 625 mg PO DAILY 12/28/18 [History Confirmed 06/22/22] cetirizine 10 mg tablet 10 mg PO DAILY 12/28/18 [History Confirmed 06/22/22] cholecalciferol (vitamin D3) 50 mcg (2,000 unit) capsule (Vitamin D3) 2,000 unitPO DAILY 12/28/18 [History Confirmed 06/22/22] cranberry 500 mg capsule 500 mg PO DAILY PRN Bladder Spasms 12/28/18 [History Confirmed 06/22/22] lactulose 10 gram/15 mL oral solution 15 ml PO BID 12/28/18 [History Confirmed 06/22/22] levothyroxine 75 mcg tablet 75 mcg PO DAILY 12/28/18 [History Confirmed 06/22/22] multivitamin (One-A-Day Essential tablet) 1 tab PO DAILY 12/28/18 [History Confirmed 06/22/22] simvastatin 20 mg tablet 20 mg PO HS 12/28/18 [History Confirmed 06/22/22] cephalexin 500 mg capsule 500 mg PO 3XW 12/17/20 [History Confirmed 06/22/22] fluticasone propionate 50 mcg/actuation nasal spray,suspension 1 spray intranasal DAILY 12/17/20 [History Confirmed 06/22/22] magnesium hydroxide 400 mg/5 mL oral suspension (Milk of Magnesia) 15 ml PO BID PRN Constipation 12/17/20 [History Confirmed 06/22/22] nystatin 100,000 unit/gram topical powder (Nyamyc) 1 applic topical BID 12/17/20[History Confirmed 06/22/22] sertraline 100 mg tablet 100 mg PO DAILY 12/17/20 [History Confirmed 06/22/22] ammonium lactate 12 % lotion 1 applic topical BID 06/22/22 [History Confirmed 06/22/22] hydroxyzine HCl 50 mg tablet 50 mg PO HS PRN Insomnia 06/22/22 [History Confirmed 06/22/22] metformin 500 mg tablet,extended release 24 hr 500 mg PO QPM 06/22/22 [History Confirmed 06/22/22] Exam Physical Exam Vital Signs: Temp Pulse Resp BP Pulse Ox O2 Del Method O2 Flow Rate 96.9 F L 74 22 106/70 97 BiPAP 30 06/23/22 12:00 06/23/22 16:14 06/23/22 16:14 06/23/22 12:00 06/23/22 12:05 06/23/22 16:00 06/23/22 09:50 FiO2 30 06/23/22 12:05 Narrative: - General: General features consistent with Down's syndrome. Patient on BiPAP, drowsy. -HEENT: Webbed neck. Dry oral mucosa -Eyes: Normal conjunctive a -Respiratory: On BiPAP,+ abdominal breathing, tachypneic, variable tidal volume on BiPAP machine. -Cardiovascular: Heart regular rate and rhythm, S1/S2 normal. No gallop. -GI: Abdomen obese soft nontender distended. Bowel sounds present. -Lower extremities: Mild pedal edema -[employer]: Unable to assess due to mental status/clinical condition Results Intake and Output I&O - Last 24 Hours: Intake & Output 06/23/22 06/23/22 06/23/22 07:59 15:59 23:59 Intake Total 730 / 730 0 / 730 Balance 730 / 730 0 / 730 Weight 90 kg Labs 06/23/22 06:34 06/23/22 06:34 Microbiology Micro: 06/23/22 06:15 Urine Culture - Pending Urine, Void 06/22/22 19:54 SARS-CoV-2, Influenza & RSV (PCR) - Final Nasopharyngeal 06/22/22 20:48 Blood Culture - Pending Blood - Right Hand 06/22/22 19:42 Blood Culture - Pending Blood - Left Hand Assessment/Plan (1) Acute hypercapnic respiratory failure: Plan: Possibly due to vascular congestion Change BiPAP settings to 14 over 6 cm H2O and rate of 12, increased FiO2 to 40%,titrate as needed to keep SPO2> 92% (2) Obstructive sleep apnea: Plan: Nonfunctional on CPAP, this should be addressed on discharge. (3) Pulmonary vascular congestion: Plan: Started on furosemide. Chest CT reviewed by myself, evidence of groun-dglass opacification, likely due to early pulmonary edema, underlying viral pneumonia also possible. (4) Obesity: (5) Acute hypoxemic respiratory failure: Plan: NIV (6) Psychiatric pseudoseizure: Plan: Neurology consulted Plan - Continue BiPAP 14/6 with a rate of 12. -Currently requiring 40% FiO2 with BiPAP. -Repeat ABGs on above settings, may take BiPAP off around mealtime once pH has normalized. -Back on BiPAP overnight tonight -DVT prophylaxis Discussed with nursing staff Documented By: Anabelle Blandon MD 06/23/22 161 6 Signed By: <Electronically signed by Anabelle Blandon MD> 06/23/22 1628 [facility] Work Phone: Consult note* Clinical Note Date No Information [facility] Work Phone: Discharge summary* Clinical Note Date No Information [facility] Work Phone: Evaluation note* Diagnosis Onset Date Resolution Status CAP (community acquired pneumonia) acuteHypoxemiaacutePsychiatric pseudoseizureacute [facility] Work Phone: Evaluation note* Diagnosis Onset Date Resolution Status Acute hypercapnic respiratory failure acuteAcute hypoxemic respiratory failureacuteAcute respiratory failure with hypoxiaacuteAspiration pneumoniaacuteCAP (community acquired pneumonia)acute DiabetesacuteDown syndromeacuteHypoxemiaacuteObesityacuteObstructive sleep apnea acutePneumonitisacutePsychiatric pseudoseizureacutePulmonary vascular congestion acuteRespiratory failure with hypercapniaacuteSeizureacuteUTI (urinary tract infection)acute [facility] Work Phone: Evaluation note* Diagnosis Onset Date Resolution Status Acute and chronic respiratory failure wi th hypercapnia acuteAcute hypercapnic respiratory failureacuteAcute hypoxemic respiratory failureacuteAcute respiratory failure with hypoxiaacuteAcute respiratory failure with hypoxia and hypercapniaacuteAspiration pneumoniaacuteCAP (community acquired pneumonia)acuteDiabetesacuteDown syndromeacuteHypoxemiaacuteImpaired mobility and ADLsacuteObesityacuteObstructive sleep apneaacutePneumonitisacute Psychiatric pseudoseizureacutePulmonary vascular congestionacuteRespiratory failure with hypercapniaacuteSeizureacuteUTI (urinary tract infection)acute [facility] Work Phone: Evaluation noteNo assessment information available [facility] Work Phone: Evaluation noteNo InformationNoozarks medical center Backplane Other Evaluation note* Diagnosis Tinea- Primary Dermatophytosis of unspecified site documented in this encounter [facility]* Diagnosis Onset Date Resolution Status Acute diastolic (congestive) heart failu re acuteAcute on chronic respiratory failure with hypoxia and hypercapniaacuteAcute respiratory failure with hypoxia and hypercapniaacuteBMI 39.0-39.9,adultacuteCHF (congestive heart failure)acuteCounseling regarding advance directives and goals of careacuteDiabetesacuteDiabetes mellitus with hyperglycemiaacuteDown syndrome acuteHistory of seizureacuteHTN (hypertension)acuteHypothyroidacuteIntertrigo acuteObstructive sleep apneaacutePneumonitisacuteUTI (urinary tract infection) acute [facility] Work Phone: Evaluation note* Diagnosis Onset Date Resolution Status Acute diastolic (congestive) heart failu re acuteAcute on chronic respiratory failure with hypoxia and hypercapniaacuteAcute respiratory failure with hypoxia and hypercapniaacuteBMI 39.0-39.9,adultacute Counseling regarding advance directives and goals of careacuteDiabetesacute Diabetes mellitus with hyperglycemiaacuteDown syndromeacuteHistory of seizure acuteHTN (hypertension)acuteHypothyroidacuteObstructive sleep apneaacute Pneumonitisacute [facility] Work Phone: Evaluation note* Diagnosis Tinea pedis, unspecified laterality- Primary Type 2 diabetes mellitus without complication, 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 ([facility]) Pain due to onychomycosis of toenails of both feet documented in this encounter [facility]* Diagnosis Other specified diabetes mellitus with hyperglycemia, unspecified whether penitentiary insulin use ([facility])- Primary Drug-induced constipation Other constipation documented in this encounter [facility]* Diagnosis Tinea Dermatophytosis of unspecified site documented in this encounter [facility]* Diagnosis Tinea Dermatophytosis of unspecified site documented in this encounter [facility]* Diagnosis Seizure disorder ([facility])- Primary Unspecified epilepsy without mention of intractable epilepsy documented in this encounter [facility]* Diagnosis Transient alteration of awareness- Primary Seizure disorder ([facility]) Unspecified epilepsy without mention of intractable epilepsy documented in this [facility]* Diagnosis Tinea pedis, unspecified laterality- Primary Type 2 diabetes mellitus without complication, 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 ([facility]) Pain due to onychomycosis of toenails of both feet Tinea Dermatophytosis of unspecified site documented in this encounter [facility]* Diagnosis Tinea Dermatophytosis of unspecified site documented in this encounter [facility]* Diagnosis Candidiasis of breast- Primary Type 2 diabetes mellitus without complication, unspecified whether penitentiary insulin use ([facility]) Chronic obstructive pulmonary disease, unspecified COPD type ([facility]) Hypothyroidism, unspecified type ([facility]) Encounter for annual wellness visit (AWV) in Medicare patient Routine general medical examination at [facility] care facility Routine general medical examination at a health care facility Obesity (BMI 30-39.9) documented in this encounter [facility]* Diagnosis Frequent UTI- Primary Urinary tract infection, site not specified Dysuria Bilateral hearing loss, unspecified hearing loss type documented in this encounter [facility]* Diagnosis Hypothyroidism, unspecified type (CMS/HCC) Drug-induced constipation Other constipation Hyperlipidemia, unspecified hyperlipidemia type (CMS/HCC) Seizure disorder (CMS/[facility]) Unspecified epilepsy without mention of intractable epilepsy documented in this [facility]* Diagnosis Dysuria- Primary Frequent UTI Urinary tract infection, site not specified documented in this encounter [facility]* Diagnosis Seizure disorder (CMS/HCC)- Primary Unspecified epilepsy without mention of intractable epilepsy documented in this encounter [facility]* Diagnosis Recurrent UTI- Primary Urinary tract infection, site not specified Type 2 diabetes mellitus without complication, 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 documented in this encounter [facility]* Diagnosis Tinea Dermatophytosis of unspecified site documented in this encounter [facility]* Diagnosis History of obstructive sleep apnea Oxygen dependent Dependence on supplemental oxygen documented in this encounter [facility]* Diagnosis Tinea pedis, unspecified laterality- Primary Type 2 diabetes mellitus without complication, unspecified whether penitentiary insulin use (HCC) Pain due to onychomycosis of toenails of both feet documented in this encounter [facility]* Diagnosis Sensorineural hearing loss, bilateral- Primary Diabetes mellitus due to underlying condition with diabetic neuropathy, 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) Urinary tract infection with hematuria, site unspecified documented in this encounter [facility]* Diagnosis Tinea pedis, unspecified laterality- Primary documented in this encounter [facility]* Diagnosis Sensorineural hearing loss, bilateral- Primary documented in this encounter [facility]* Diagnosis Slow transit constipation Drug-induced constipation Other constipation documented in this encounter [facility]* Diagnosis Hyperlipidemia, unspecified hyperlipidemia type documented in this encounter [facility]* Diagnosis Onset Date Resolution Status Admit Date Encounter for medication monitoring acuteAugust 2024 10:37am [facility] Work Phone: Evaluation note* Diagnosis Breakthrough seizure (HCC)- Primary Hyperlipidemia, unspecified hyperlipidemia type Hypothyroidism, unspecified type Candidiasis of breast Non-recurrent acute suppurative otitis media of both ears without spontaneous rupture of tympanic membranes Recurrent UTI Urinary tract infection, site not specified Vaginal yeast infection Candidiasis of vulva and vagina Hospital discharge follow-up Other follow-up examination Tinea pedis, unspecified laterality- Primary Type 2 diabetes mellitus without complication, unspecified whether penitentiary insulin use (HCC) Pain due to onychomycosis of toenails of both feet documented in this encounter [facility]* Diagnosis Tinea pedis, unspecified laterality- Primary Tinea pedis, unspecified laterality- Primary Type 2 diabetes mellitus without complication, 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) Pain due to onychomycosis of toenails of both feet documented in this encounter [facility]* Diagnosis Obstructive sleep apnea (adult) (pediatric)- Primary Tinea pedis, unspecified laterality- Primary Type 2 diabetes mellitus without complication, unspecified whether penitentiary insulin use (HCC) Pain due to onychomycosis of toenails of both feet documented in this encounter [facility]* Diagnosis Tinea pedis, unspecified laterality- Primary Type 2 diabetes mellitus without complication, 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) Pain due to onychomycosis of toenails of both feet documented in this encounter [facility] HealthcareEvaluation note* Type Assessment Date No Information [facility] Work Phone: Evaluation note* Diagnosis Sensorineural hearing loss, bilateral- Primary documented in this encounter [facility]* Diagnosis Encounter for completion of form with patient- Primary documented in this encounter [facility]* Diagnosis Chronic obstructive pulmonary disease, unspecified COPD type (HCC)- Primary IFG (impaired fasting glucose) Generalized anxiety disorder Down syndrome ([facility]) Down's syndrome documented in this encounter [facility] HealthcareHistory and physical note Author Abel [facility] June 23, 2022 3:48amNote Date/TimeApril 2022 2:30[place] [address] Hospitalist H&P Signed with Addenda Patient: Kelsey Graves Dominik MR#: [id number] : 1980 Acct:[id number] Age/Sex: 41 / F Adm Date: 3 Loc: Room: [address] [place] [address] Type: ADM IN Attending Dr: Abel Deleon MD Copies to: MD Delgado Edward MD~ ADDENDUM1 UA positive for UTI. Pancultures sent Addendum Documented By: Abel Deleon MD 06/23/22346 Addendum Signed By: <Electronically signed by Abel Deleon MD> 06/23/22346 HPI DATE OF EXAMINATION: 06/23/22 CHIEF COMPLAINT: seizure, hypoxia HISTORY OF PRESENT ILLNESS: Patient is a 41-year-old lady past medical history of Down syndrome, hypertension, hypothyroidism, pseudoseizures was brought to the emergency department by EMS due to seizures. Patient is awake and alert but is not a goodhistorian. History obtained from her legal guardian on the phone. She stated that she was not with the patient but she was told that patient had seizures while having her dinnerwhich lasted for 1 minute and lost consciousness but is not postictal. She told them to send the patient to ED. She noted that patienthas not been on CPAP as it was not working. 5 days ago patient was found to be hypoxic and was taken to her primary care physician and was started on a inhaler. Uponarrival in the ED patient was able to identify her family membersbut did not have any other seizures. Labs done in the ED showed leukocytosis WBC 14 with normal chemistry. Prolactin 24.9. Patient does not appear to be inany respiratory distress but is requiring 2 L nasal cannula to keep saturationsabove 90. Chest x-ray showed signs of pneumonia. Patient denies any chest pain, cough, shortness ofbreath, nausea, vomiting, abdominal pain, fever and chills Review of Systems Review of Systems All other systems reviewed & are negative unless noted below or in HPI PMFSH Vaccinated for COVID-19?: Yes Medical History (Updated 06/22/22 @ 23:01 by Swapnil Quigley DO) Down syndrome HTN (hypertension) Hypothyroid Social History Smoking Status: Never smoker Substance Use Type: None Meds Medications and Allergies Allergies diazepam Allergy (Verified 06/22/22 19:37) Unknown Reaction Home Medications Lactobacillus acidoph-L.bulgaricus 1 million cell tablet (Floranex) 1 tab PO DAILY 12/28/18 [History Confirmed 06/22/22] acetaminophen 325 mg capsule 650 mg PO Q6H PRN Pain 12/28/18 [History Confirmed 06/22/22] calcium polycarbophil 625 mg tablet 625 mg PO DAILY 12/28/18 [History Confirmed 06/22/22] cetirizine 10 mg tablet 10 mg PO DAILY 12/28/18 [History Confirmed 06/22/22] cholecalciferol (vitamin D3) 50 mcg (2,000 unit) capsule (Vitamin D3) 2,000 unitPO DAILY 12/28/18 [History Confirmed 06/22/22] cranberry 500 mg capsule 500 mg PO DAILY PRN Bladder Spasms 12/28/18 [History Confirmed 06/22/22] lactulose 10 gram/15 mL oral solution 15 ml PO BID 12/28/18 [History Confirmed 06/22/22] levothyroxine 75 mcg tablet 75 mcg PO DAILY 12/28/18 [History Confirmed 06/22/22] multivitamin (One-A-Day Essential tablet) 1 tab PO DAILY 12/28/18 [History Confirmed 06/22/22] simvastatin 20 mg tablet 20 mg PO HS 12/28/18 [History Confirmed 06/22/22] cephalexin 500 mg capsule 500 mg PO 3XW 12/17/20 [History Confirmed 06/22/22] fluticasone propionate 50 mcg/actuation nasal spray,suspension 1 spray intranasal DAILY 12/17/20 [History Confirmed 06/22/22] magnesium hydroxide 400 mg/5 mL oral suspension (Milk of Magnesia) 15 ml PO BID PRN Constipation 12/17/20 [History Confirmed 06/22/22] nystatin 100,000 unit/gram topical powder (Nyamyc) 1 applic topical BID 12/17/20[History Confirmed 06/22/22] sertraline 100 mg tablet 100 mg PO DAILY 12/17/20 [History Confirmed 06/22/22] ammonium lactate 12 % lotion 1 applic topical BID 06/22/22 [History Confirmed 06/22/22] hydroxyzine HCl 50 mg tablet 50 mg PO HS PRN Insomnia 06/22/22 [History Confirmed 06/22/22] metformin 500 mg tablet,extended release 24 hr 500 mg PO QPM 06/22/22 [History Confirmed 06/22/22] Exam Physical Exam Vital Signs: Temp Pulse Resp BP Pulse Ox O2 Del Method O2 Flow Rate 98.4 F 78 20 109/72 97 Simple Mask 2 06/23/22 00:46 06/23/22 02:15 06/23/22 02:15 06/23/22 00:46 06/23/22 02:15 06/23/22 00:46 06/23/22 00:46 FiO2 30 06/23/22 02:15 Narrative: General: Awake, alert, oriented x3 not in acute distress HEENT: Normocephalic, atraumatic, PERRLA, normal mucosa Cardiovascular: Regular rate and rhythm , S1-S2 heard, no murmurs or gallops Lungs: No wheezing or rhonchi heard Gastrointestinal: Soft, nontender, bowel sounds heard Extremities: No edema Neurological: no sensory or motor deficit Skin: Dry and warm, no rashes or lesions Psych: Normal mood and affect Results Lab Results Labs: Laboratory Last Values Corrected WBC 14.0 X10E3/uL (3.8-11.6) H 06/22/22 19:42 Uncorrected WBC Count 14.0 x10E3/uL (3.8-11.6) H 06/22/22 19:42 RBC 4.86 X10E6/uL (3.60-5.00) 06/22/22 19:42 Hgb 14.0 g/dL (11.8-15.4) 06/22/22 19:42 Hct 43.8 % (34.0-46.4) 06/22/22 19:42 MCV 90.1 fl (80-100) 06/22/22 19:42 MCH 28.8 pg (24.7-34.3) 06/22/22 19:42 MCHC 32.0 g/dL (32.0-35.0) 06/22/22 19:42 RDW 17.2 % (11.9-15.3) H 06/22/22 19:42 Plt Count 303 x10E3/uL (150-450) 06/22/22 19:42 MPV 9.2 fl (6.3-10.7) 06/22/22 19:42 Neut % (Auto) 77.1 % (.) 06/22/22 19:42 Lymph % (Auto) 14.4 % (.) 06/22/22 19:42 [place] % (Auto) 6.2 % (.) 06/22/22 19:42 Eos % (Auto) 1.0 % (.) 06/22/22 19:42 Baso % (Auto) 1.3 % (.) 06/22/22 19:42 Nucleat RBC Rel Count 0.4 /100 WBC (0-0.5) 06/22/22 19:42 Neut # (Auto) 10.8 x10E3/uL (1.8-7.7) H 06/22/22 19:42 Lymph # (Auto) 2.0 x10E3/uL (1.00-4.8) 06/22/22 19:42 [place] # (Auto) 0.9 x10E3/uL (0.0-0.8) H 06/22/22 19:42 Eos # (Auto) 0.1 x10E3/uL (0.0-0.45) 06/22/22 19:42 Baso # (Auto) 0.2 x10E3/uL (0.0-0.2) 06/22/22 19:42 Monocyte Dist Width 22.60 % (0.00-20.00) H 06/22/22 19:42 Sample Site Umbilical cord 06/22/22 20:06 VBG pH 7.35 (7.32-7.43) 06/22/22 20:06 VBG pCO2 57.7 mmHg (38.0-50.0) H 06/22/22 20:06 VBG pO2 72.8 mmHg (35.0-45.0) H 06/22/22 20:06 VBG HCO3 31.2 mmol/L (23.0-29.0) H 06/22/22 20:06 VBG Total CO2 33.0 mmol/L (24.0-29.0) H 06/22/22 20:06 VBG O2 Saturation 93.7 % (73.0-76.0) H* 06/22/22 20:06 VBG O2 Content 8.9 mmol/L (6.6-9.7) 06/22/22 20:06 VBG Base Excess 3.9 mmol/L (-3.0-3.0) H 06/22/22 20:06 FiO2 21 % 06/22/22 20:06 Critical Value 06/22/22 20:06 PHA Creatinine Clear 80.71 06/22/22 19:42 Sodium 137 mmol/L (136-145) 06/22/22 19:42 Potassium 4.7 mmol/L (3.5-5.1) 06/22/22 19:42 Chloride 99 mmol/L (98-107) 06/22/22 19:42 Carbon Dioxide 31.1 mmol/L (21.0-31.0) H 06/22/22 19:42 Anion Gap 11.6 mEq/L (6.0-15.0) 06/22/22 19:42 BUN 19 mg/dL (7-25) 06/22/22 19:42 Creatinine 0.92 mg/dL (0.60-1.20) 06/22/22 19:42 Est GFR (CKD-EPI) > 60.0 mL/Min 06/22/22 19:42 Glucose 132 mg/dL (70-100) H 06/22/22 19:42 Lactic Acid 1.1 mmol/L (0.5-2.2) 06/22/22 19:41 Calcium 9.4 mg/dL (8.6-10.3) 06/22/22 19:42 B-Natriuretic Peptide 32.0 pg/mL (5-100) 06/22/22 19:42 Prolactin 24.90 ng/mL (3.34-26.72) 06/22/22 19:42 SARS-CoV-2 Rap RNA(RT-PCR) Negative (Negative) 06/22/22 19:54 Microbiology Results Micro: Microbiology - Results from entire visit 06/22/22 19:54 Nasopharyngeal SARS-CoV-2, Influenza & RSV (PCR) - Final ABG Interpretation ABG results: 06/22/22 20:06 VBG pH 7.35 VBG pCO2 57.7 H VBG pO2 72.8 H VBG HCO3 31.2 H VBG Total CO2 33.0 H VBG O2 Saturation 93.7 H* VBG Base Excess 3.9 H A&P - Hospitalist Assessment/Plan (1) CAP (community acquired pneumonia): (2) UTI (urinary tract infection): (3) Hypoxemia: (4) Psychiatric pseudoseizure: Plan Patient will be admitted to floor for further evaluation management She is hemodynamically stable, saturating 95% on 2 L nasal cannula. Patient does not usually use oxygen Labs showed leukocytosis with normal chemistries and lactic acid Chest x-ray showed signs of pneumonia Patient has been started on ceftriaxone and azithromycin in the ED, will continue Breathing treatments, Mucinex Continue home meds once verified Aspiration precautions Fall precautions DVT prophylaxis CODE STATUS full Documented By: Abel Deleon MD 06/23/22 0229 Signed By: <Electronically signed by Abel Deleon MD> 06/23/22 0340 [facility] Work Phone: History and physical note* Clinical Note Date No Information [facility] Work Phone: History general Narrative - Reported* Type Description Date Medical History Down's syndrome Medical Historymanic depressionMedical Historyobsessive-compulsive disorder Medical HistoryscoliosisMedical Historysleep apneaMedical HistoryHistory of UTI'SSurgical Historyav canalHospitalization Historysee above EnglishCentral Other History of Past illness Narrative* Condition Effective Dates (start - stop) O utcome No Information [facility] Work Phone: History of Present illness Narrative* Raymon Pepper, URIEL - 10/20/2024 2:20 PM EDT Patient: Kelsey Graves : 1980 PCP: Delgado Valdez MD SUBJECTIVE This is a 43 y.o. female that presents today with a [...] have been using medicated antifungal cream with improvement And states negative itching to feet and toes. 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 12/08/2008 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 DM type 2 (diabetes mellitus, type 2) ([facility]) Down syndrome ([facility]) 11/08/2008 Down syndrome ([facility]) 04/2016 Pseudoseizure Hospitalization Dysuria 07/22/2024 Factitious illness 10/23/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 Take before meals., Disp: 30 tablet, Rfl: 5 nitrofurantoin, macrocrystal-monohydrate, (Macrobid) 100 MG capsule, Take 1 capsule (100 mg) by mouth at bedtime, Disp: 90 capsule, Rfl: 3 oxygen (O2) gas, Inhale 4 L/min continuously, Disp: , Rfl: polycarbophil (Fiber-Lax) 625 MG tablet, Take 1 tablet (625 mg) by mouth Daily, Disp: 90 tablet, Rfl: 1 polycarbophil (FiberCon) 625 MG tablet, Take 1 [...] the same time, Disp: 90 tablet, Rfl: 0 Social History: Social History Socioeconomic History Marital [...] through 10. Positive hair growth b/l feet. Greatly diminished Dry and peeling skin with slight maceration to interdigital spaces bilateral feet with peeling and dry skin noted to interdigital spaces VASC: Positive palpable pedal pulses bilaterally NEURO: Gross sensation intact to bilateral feet ORTHO: Positive pain on palpation to toenails of the left 1,2,3,4,5 toes and right 1,2,3,4,5 toes ASSESSMENT 1. Tinea pedis, unspecified laterality 2. Type 2 diabetes mellitus without complication, unspecified whether penitentiary insulin use (HCC) 3. Pain due to onychomycosis of toenails of both feet PLAN Discussed proper foot care with patient today. Continue creams to feet daily of antifungals Debride nails in length and thickness digits 1 through 10 Patient education concerning tinea infection. Discussed use of antifungal cream and foot powders aswell as good foot hygiene and prevention measures. Offered RX today . Patient education on condition and treatment of condition. Raymon Pepper DPM documented in this encounterNOMS HealthcareHistory of Present illness Narrative * Encounter Date Complaint History Of Prese nt Illness No Information [facility] Work Phone: Hospital course Narrative No data available for this section [facility] Additional Instructions Rehab to manage: - PT/OT to eval and treat - Please see Speech therapy recommendations - Monitor VS routine - Continue 6lpm NC O2 - titrate as able/needed - Continue Bipap at bedtime and during day as needed - 08/12 - Respiratory assessments - Monitor blood sugars - Dx. DM - Neuro assessments - Dx. Seizure - Fall precautions - high [facility]Fair[facility] Work Phone: Hospital Discharge instructions Additional Instructions Wear your BiPAP at nightFairfield Medical Center Work Phone: Hospital Discharge instructions Additional Instructions Continue giving her medications as prescribed Start Keflex prescription that is prescribed due to UTI. Once prescription is completed you can go back onto the regimen of cephalexin that you guys were administering. Follow-up neurology/PCP call tomorrow for appointment You have a Keppra level is pending Return here if any problems persist or worsen including increased seizure activities, shortness of breath, chest pain, altered mental status or any other concernFairfield Medical Center Work Phone: Hospital Discharge instructions Additional Instructions Tylenol every 4 hours as needed for pain Return if symptoms are worseFairfield Medical Center Work Phone: Hospital Discharge instructions No data available for this section [facility] Additional Instructions Call the company that supplies your CPAP machine so that they can replace the machineFairfield Medical Center Work Phone: Hospital Discharge instructions Additional Instructions Please return to the emergency department for any new or worrisome symptoms including any further seizure-like activity, chest pain, shortness of breath, abdominal pain, vomiting, fever. Increase your Keppra as directed. Take all antibiotics for your urine infection as directed.[facility] Work Phone: Hospital Discharge instructions Additional Instructions If your symptoms return/worsen or you develop any further concerns or symptoms please see your doctor or return to the emergency department immediately. It is imperative that you go over today's visit and all results with your primary care provider.[facility] Work Phone: Instructions* Date Instruction Additional Infor mation No Information [facility] Work Phone: Progress note Author Hugh Craft [facility] June 23, 2022 10:51amNote Date/TimeApril 2022 10:51am[place] [address] Hospitalist Progress Note Signed Patient: Kelsey Graves MR#: [id number] : 1980 Acct:[id number] Age/Sex: 41 / F Adm Date: 3 Loc: Room: [address] [place] [address] Type: ADM IN Attending Dr: Hugh Craft MD Copies to: ~ Date of Service: 06/23/2022 Subjective Subjective Narrative: Patient continued to have respiratory distress, tachypnea and hypoxemia. I transferred the patient to progressive care unit and I urgently evaluated her upon the progressive care unit. Patient has Down syndrome. Unable to communicatebut able to follow simple commands. Able to nod her head. Her guard jamel is at the bedside. Exam Physical Exam Vital Signs: Temp Pulse Resp BP Pulse Ox O2 Del Method O2 Flow Rate 97.8 F 88 24 117/80 99 BiPAP 30 06/23/22 09:30 06/23/22 10:05 06/23/22 10:05 06/23/22 09:30 06/23/22 10:05 06/23/22 09:50 06/23/22 09:50 FiO2 06/23/22 10:05 Narrative: Patient is in moderate respiratory distress. Respiratory is about 26. She is on BiPAP. She is morbidly obese. Neck is short. Chest exam revealed bilateral rhonchi. Heart is regular, tachycardic. Abdomen is soft. Increased abdominal girth, no apparent tenderness otherwise her abdominal exam is limited otherwise. Lower extremitiestrace nonpitting edema. Neurologically the patient is awake. She is able to answer questions by nodding her head sideway. She is able to follow simple commands. Cognitive loss secondary to Down syndrome Objective Lab Results 06/23/22 06:34 06/23/22 06:34 Microbiology Results Microbiology 06/22/22 19:54 Nasopharyngeal SARS-CoV-2, Influenza & RSV (PCR) - Final ABG Interpretation ABG results: 06/23/22 09:37 ABG pH 7.30 L ABG pCO2 62.2 H* ABG pO2 128.2 H* ABG HCO3 30.0 H ABG Total CO2 31.9 H ABG O2 Saturation 98.4 ABG O2 Content 8.8 ABG Base Excess 1.9 Meds Allergies and Active Meds Allergies diazepam Allergy (Verified 06/22/22 19:37) Unknown Reaction Active Meds: Active Medications Generic Name Dose Route Start Last Admin Trade Name Freq PRN Reason Stop Dose Admin Acetaminophen 650 mg 06/23/22 02:25 Acetaminophen 325 Mg Tablet PO 06/23/23 02:24 Q6HR PRN Pain Scale 1 - 3 or fever Albuterol/Ipratropium 3 ml 06/23/22 08:00 06/23/22 09:41 Ipratropium/Albuterol 0.5-3 Mg 3 Ml Ampul.Neb INHALATION 06/23/23 07:59 NotGiven QID.RESP CARL Ammonium Lactate 1 applic 06/23/22 09:00 Ammonium Lactate 12% Lot 226 Gm Bottle TOPICAL 06/23/23 08:59 BID CARL Atorvastatin Calcium 10 mg 06/23/22 22:00 Atorvastatin 10 Mg Tablet PO 06/23/23 21:59 HS CARL Calcium Polycarbophil 625 mg 06/23/22 09:00 06/23/22 10:43 Calcium Polycarbophil 625 Mg Tablet PO 06/23/23 08:59 Not Given DAILY CARL Dextrose 0 gm 06/23/22 10:37 Dextrose 50% In Water 25 Gm/50 Ml Syringe IV-PUSH 06/23/23 10:36 PRN PRN Hypoglycemia Enoxaparin Sodium 40 mg 06/23/22 10:00 Enoxaparin 40 Mg/0.4 Ml Syringe SUBCUT 06/23/23 09:59 DAILY@10 CARL Fluticasone Propionate 1 spray 06/23/22 09:00 06/23/22 10:44 Fluticasone Propionate [place] 120 [place]/16 Gm Bottle INTRANASAL 06/23/23 08:59 Not Given DAILY [facility] Glucose 0 gm 06/23/22 10:37 Dextrose 40% Gel 15 Gm Tube PO 06/23/23 10:36 PRN PRN Hypoglycemia Guaifenesin/Dextromethorphan 10 ml 06/23/22 02:25 Guaif/Dextromethorphan Syrup 10 Ml Udc PO 06/23/23 02:24 Q8H PRN Cough Hydroxyzine Pamoate 50 mg 06/23/22 02:37 Hydroxyzine Pamoate 50 Mg Capsule PO 06/23/23 02:36 HS PRN Insomnia Azithromycin 500 mg in 250 mls @ 250 mls/hr 06/23/22 23:00 Zithromax IV Q24H [facility] Piperacillin Sod/Tazobactam Sod 3.375 gm in 100 mls @ 200 mls/hr 06/23/22 10:45 Zosyn IV Q6H [facility] Levetiracetam 500 mg/ Dextrose 105 mls @ 420 mls/hr 06/23/22 10:40 IV 06/23/23 10:39 BID CARL Lactated Ringer's 1,000 mls @ 75 mls/hr 06/23/22 10:45 Lactated Ringers IV 06/23/23 10:44 .[id number] [facility] Insulin Aspart 0 units 06/23/22 12:00 Insulin Aspart 300 Units/3 Ml Insuln.Pen SUBCUT 06/23/23 11:59 Q6HR [facility] Protocol Lact Acid/Bifidobact/Lact Paracas/Streptoc Th 1 cap 06/23/22 09:00 06/23/22 10:43 L. Acidophilus/Strept/La P-Davonte 1 Cap Capsule PO 06/23/23 08:59 Not Given DAILY [facility] Lactulose 10 gm 06/23/22 09:00 06/23/22 10:44 Lactulose 20 Gm/30 Ml Udc PO 06/23/23 08:59 Not Given BID CARL Levothyroxine Sodium 75 mcg 06/23/22 06:30 06/23/22 06:18 Levothyroxine 75 Mcg Tablet PO 06/23/23 06:29 75 mcg DAILY@0630 CARL Administration Magnesium Hydroxide 15 ml 06/23/22 02:28 Magnesium Hydroxide Susp 30 Ml Udc PO 06/23/23 02:27 BID PRN Constipation Metformin HCl 250 mg 06/23/22 08:00 06/23/22 10:43 Metformin 500 Mg Tablet PO 06/23/23 07:59 Not Given BID.WITH.MEALS CARL Multivitamins 1 tab 06/23/22 09:00 06/23/22 10:43 Multivitamin 1 Tab Tablet PO 06/23/23 08:59 Not Given DAILY CARL Nystatin 1 applic 06/23/22 09:00 Nystatin 100,000 Unit/Gram Powder 15 Gm Bottle TOPICAL 06/23/23 08:59 BID CARL Oxycodone/Acetaminophen 1 tab 06/23/22 02:25 Oxycodone/Acetaminophen 5-325 Mg Tablet PO Q4H PRN Pain Scale 4 - 7 Potassium Chloride 40 meq 06/23/22 02:25 Potassium Chloride Er 20 Meq Tab.Er.Prt PO 06/23/23 02:24 DAILY PRN Hypokalemia Sertraline HCl 100 mg 06/23/22 09:00 06/23/22 10:44 Sertraline 100 Mg Tablet PO 06/23/23 08:59 Not Given DAILY CARL Sodium Chloride 0 ml 06/22/22 19:36 06/22/22 23:20 Sodium Chloride 0.9 % 10 Ml Syringe IV-PUSH 06/22/23 19:35 10 ml PRN PRN Administration Flush Sodium Chloride 10 ml 06/23/22 10:45 Sodium Chloride 0.9 % 10 Ml Syringe IV-PUSH 06/23/23 10:44 Q8H CARL Sodium Chloride 0 ml 06/23/22 14:00 Sodium Chloride 0.9 % 10 Ml Syringe IV-PUSH 06/23/23 13:59 QSHIFT CARL Vitamin D 50 mcg 06/23/22 09:00 06/23/22 10:43 Cholecalciferol 25 Mcg (1,000 Units) Tablet PO 06/23/23 08:59 Not Given DAILY [facility] A&P - Hospitalist Assessment/Plan (1) CAP (community acquired pneumonia): (2) UTI (urinary tract infection): (3) Hypoxemia: (4) Psychiatric pseudoseizure: (5) Respiratory failure with hypercapnia: (6) Acute respiratory failure with hypoxia: (7) Aspiration pneumonia: (8) Pneumonitis: (9) Seizure: (10) Down syndrome: (11) Diabetes: Plan Acute hypoxic and hypercapnic respiratory failure Aspiration pneumonia, probable pneumonitis, probable ARDS I transferred the patient urgently to the progressive care unit I started her on BiPAP 14/. Subsequently I changed it to 16/7 due to persistent hypercapnia with mild acidosis. Patient had been already started on Zithromax. I discontinued the Rocephin and started Zosyn to cover anaerobes gram-negative Pseudomonas I requested pulmonary evaluation I made patient n.p.o. due to the use of BiPAP I requested CT chest Seizure precaution. Telemetry monitoring. I requested Sim catheter to monitor urine output closely I discussed goals of care with the guardian at the bedside. We discussed the possible need of intubation and vent support. She wants her to be full code at this time but she will think about it overnight. Defer further needed diagnostic and therapeutic intervention related to her pulmonary status to pulmonary team. Reported seizure I started patient on Keppra intravenously Requested seizure precaution. Requested CT head to rule out intracranial bleed Requested a neuro evaluation Diabetes Patient was made n.p.o. I started patient on LR with a sliding scale coverage every 6 hours. DVT prophylaxis Lovenox. Patient continues to be in a critical state of condition. Patient may get worsebefore she gets better. In addition her status is a dynamic and evolutionary therefore the aforementioned assessment andplan may or may not be complete or conclusive. The patient likely will require to have additional work- up, investigation, diagnostic and therapeutic intervention as well as specialist consultation that will be determined based on the clinical progression and follow-up test result. I spent about 50 minutes in the critical care evaluation, assessment and treatment of this patient as part Documented By: Hugh Craft MD 06/23/22 1044 Signed By: <Electronically signed by Hugh Craft MD> 06/23/22 1051 [facility] Work Phone: Progress note Author Nabil Holman [facility] June 24, 2022 2:15pmNote Date/TimeMay 2022 2:15[place] [address] Pulmonology Progress Note Signed Patient: Kelsey Graves MR#: [id number] : 1980 Acct:[id number] Age/Sex: 41 / F Adm Date: 3 Loc: Room: [address] [place] [address] Type: ADM IN Attending Dr: Tiesha De MD Copies to: ~ Date of Service: 06/24/2022 Subjective Subjective Narrative: Patient remained somnolent during critical care rounds this morning, with continuous BiPAP applied,comes agitated with stimuli, unable to obtain follow-up gases last night, I attempted right femoralaccess and was able to get small amount of blood 1 time but then aborted the attempt as patient wasvery uncomfortable. I took her off BiPAP as she was noted to have very coarse breathsounds and rhonchi bilaterally consistent with airway secretions. She did have an excellent cough effort after removal of BiPAP mask. She is oxygenating well on 4 L per nasal cannula now. Remains afebrile with stable hemodynamic status. She is more responsive since stopping BiPAP therapy. Her guardian was at the bedside with whom I had discussion about her status and prognosis. She has mildleukocytosis, kidney functions are adequate her carbon dioxide was 33.[address] yesterday showed low lung volumes with dependent atelectatic areas in all lobes bilaterally consistent with hypoventilation anddependent atelectasis. Exam Physical Exam Vital Signs: Temp Pulse Resp BP Pulse Ox O2 Del Method O2 Flow Rate 98.4 F 61 22 128/79 97 Nasal Cannula 4 06/24/22 12:00 06/24/22 12:27 06/24/22 12:15 06/24/22 12:27 06/24/22 12:00 06/24/22 12:00 06/24/22 12:00 FiO2 40 06/24/22 08:30 Narrative: General: Patient was initially somnolent with BiPAP on, became somewhat more responsive afterwards specially on a nasal cannula, followed commands including cough to commands. She appeared in no distress, morbidly obese, with Down syndrome features Eyes: Pupils equal round reactive to light HEENT: Normocephalic, atraumatic, oral mucosa moist Neck: Supple no lymphadenopathy or thyromegaly Cardiovascular: S1, S2, normal sounds, no murmurs or gallops noted, regular rhythm Lungs: Diminished breath sounds bilaterally with coarse inspiratory crackles andrhonchi, expiratorywheezes Extremities: Improving peripheral edema Neurologic: As detailed above Objective Intake and Output I&O - Last 24 Hours: Intake & Output 06/23/22 06/24/22 06/24/22 23:59 07:59 15:59 Intake Total / 1140 1220 / 2320 1100 / 2320 Balance 1140 1220 / 2320 1100 / 2320 Weight 85.8 kg Labs 06/24/22 05:18 06/24/22 05:18 Microbiology Micro: Microbiology 06/23/22 06:15 Urine Culture - Preliminary Urine, Void 30,000 colonies/ml mixed bacterial skin contaminants 1 Day 06/22/22 20:48 Blood Culture - Preliminary Blood - Right Hand No Growth 1 Day 06/22/22 19:42 Blood Culture - Preliminary Blood - Left Hand No Growth 1 Day Assessment/Plan Assessment/Plan (1) Acute hypercapnic respiratory failure: Plan: Likely associated with hypoventilation, dependent atelectasis, and fluid overload (2) Obstructive sleep apnea: (3) Pulmonary vascular congestion: Plan: Overall fluid overload, part of appearance of vascular congestion is likely due to micro atelectatic changes (4) Obesity: Plan: Associated with hypoventilation (5) Acute hypoxemic respiratory failure: Plan: NIV (6) Psychiatric pseudoseizure: Plan: Neurology consulted Plan We will keep patient off BiPAP during the day as tolerated, encourage deep breathing cough, pulmonary toileting as tolerated including chest physiotherapy,BiPAP at night and as needed with increasinghypersomnolence, difficult to get blood gases from her hands we will monitor clinically at this point. Discussed at length with patient's guardian as mentioned before Documented By: Nabil Holman MD 06/24/22 141 Signed By: <Electronically signed by Nabil Holman MD> 06/24/22 1415 [facility] Work Phone: Progress note Author Bam Stack [facility] June 24, 2022 4:02pmNote Date/TimeMay 2022 4:02pm[place] [address] Neurology Progress Note Signed Patient: Kelsey Graves MR#: [id number] : 1980 Acct:[id number] Age/Sex: 41 / F Adm Date: 3 Loc: Room: [address] [place] [address] Type: ADM IN Attending Dr: Tiesha De MD Copies to: ~ Date of Service: 06/24/2022 Exam Physical Exam Vital Signs: Temp Pulse Resp BP Pulse Ox O2 Del Method O2 Flow Rate 98.4 F 76 22 105/66 97 Nasal Cannula 4 06/24/22 12:00 06/24/22 15:00 06/24/22 12:15 06/24/22 15:00 06/24/22 12:00 06/24/22 12:00 06/24/22 12:00 FiO2 40 06/24/22 08:30 Objective Vital Signs Vital Signs: Vital Signs - 24 hr 06/23/22 16:00 06/23/22 16:05 06/23/22 16:14 Temperature Pulse Rate 78 74 Respiratory Rate 22 22 Blood Pressure 02 Sat by Pulse Oximetry Oxygen Delivery Method BiPAP Oxygen Flow Rate Fraction of Inspired Oxygen 06/23/22 16:00 06/23/22 17:41 06/23/22 19:45 Temperature 97.4 F L Pulse Rate 80 75 Respiratory Rate 19 28 H Blood Pressure 111/71 02 Sat by Pulse Oximetry 93 L Oxygen Delivery Method BiPAP BiPAP Oxygen Flow Rate Fraction of Inspired Oxygen 30 40 06/23/22 19:54 06/23/22 20:00 06/23/22 21:00 Temperature 97.9 F Pulse Rate 74 75 77 Respiratory Rate 30 H 14 28 H Blood Pressure 156/69 H 02 Sat by Pulse Oximetry 98 97 Oxygen Delivery Method BiPAP Oxygen Flow Rate Fraction of Inspired Oxygen 40 40 06/23/22 23:08 06/23/22 20:00 06/24/22 00:00 Temperature Pulse Rate 69 68 Respiratory Rate 28 H 13 Blood Pressure 110/62 02 Sat by Pulse Oximetry 97 91 L Oxygen Delivery Method BiPAP Nasal Cannula Oxygen Flow Rate 4 Fraction of Inspired Oxygen 40 40 06/24/22 01:00 06/24/22 01:35 05/01/23 00:00 Temperature Pulse Rate 72 68 Respiratory Rate 18 26 H Blood Pressure 95/71 L 02 Sat by Pulse Oximetry 90 L 97 Oxygen Delivery Method BiPAP Oxygen Flow Rate Fraction of Inspired Oxygen 40 40 06/24/22 00:00 06/24/22 03:03 06/24/22 03:29 Temperature Pulse Rate 86 78 Respiratory Rate Blood Pressure 148/72 H 148/72 H 02 Sat by Pulse Oximetry Oxygen Delivery Method BiPAP Oxygen Flow Rate Fraction of Inspired Oxygen 40 06/24/22 03:50 06/24/22 04:00 06/24/22 04:00 Temperature 98.3 F Pulse Rate 79 68 Respiratory Rate 18 Blood Pressure 141/60 H 128/56 L 02 Sat by Pulse Oximetry 96 Oxygen Delivery Method Oxygen Flow Rate Fraction of Inspired Oxygen 40 40 06/24/22 05:45 06/24/22 08:19 06/24/22 08:19 Temperature Pulse Rate 65 61 Respiratory Rate 20 20 Blood Pressure 02 Sat by Pulse Oximetry 95 Oxygen Delivery Method BiPAP Oxygen Flow Rate Fraction of Inspired Oxygen 40 06/24/22 08:00 06/24/22 08:00 06/24/22 10:00 Temperature 98.6 F Pulse Rate 62 60 Respiratory Rate 17 22 Blood Pressure 93/55 L 99/68 L 02 Sat by Pulse Oximetry 95 95 Oxygen Delivery Method Nasal Cannula Oxygen Flow Rate 4 Fraction of Inspired Oxygen 40 40 06/24/22 08:30 06/24/22 10:30 06/24/22 12:27 Temperature Pulse Rate 62 60 61 Respiratory Rate 18 Blood Pressure 99/68 L 128/79 02 Sat by Pulse Oximetry 96 Oxygen Delivery Method Oxygen Flow Rate Fraction of Inspired Oxygen 40 06/24/22 12:00 06/24/22 12:15 06/24/22 13:00 Temperature 98.4 F Pulse Rate 63 68 64 Respiratory Rate 20 22 Blood Pressure 128/79 128/79 02 Sat by Pulse Oximetry 97 Oxygen Delivery Method Nasal Cannula Oxygen Flow Rate 4 Fraction of Inspired Oxygen 06/24/22 14:00 06/24/22 15:00 Temperature Pulse Rate 77 76 Respiratory Rate Blood Pressure 105/66 105/66 02 Sat by Pulse Oximetry Oxygen Delivery Method Oxygen Flow Rate Fraction of Inspired Oxygen Labs 06/24/22 05:18 06/24/22 05:18 Assessment/Plan (1) Aspiration pneumonia: Code(s): J69.0 - Pneumonitis due to inhalation of food and vomit Status: Acute (2) UTI (urinary tract infection): Code(s): N39.0 - Urinary tract infection, site not specified Status: Acute (3) Seizure: Code(s): R56.9 - Unspecified convulsions Status: Acute (4) Down syndrome: Code(s): Q90.9 - Down syndrome, unspecified Status: Acute Plan SUBJECTIVE: Could not obtain much history. She is in the ICU. Nasal cannula in place. Noton any CPAP/BiPAP currently but was just a short while ago. Has sleep apnea andis compliant with CPAP at night at home butrecently it has been broken or something. She is not in pain. Her caregiver is here. She says that Kelsey is typically quite verbal but not so much currently. Could not obtain review ofsystems. EXAMINATION: On supplemental oxygen via nasal cannula. In no distress. Has dysmorphic features consistent with Down syndrome. Perhaps mildly increased work of breathing. I witnessed a few breath-holding spells which her caregiver says is normal. Visualized skin seems generally intact. She is alert. Speech not as sessed. Pupils are equal. Ocular motility is full. Tongue was midline. No apparent focal muscle weakness. Reflexes normal throughout. No tremors seen. Light touch is intact. No ataxic limb movements. DATA REVIEW: CT of the brain without contrast: unremarkable Chest x-ray: Evidence of pneumonia Urinalysis: Pending Vitamin B12: Pending Routine EEG: Pending Ammonia: Pending TSH: Pending CBC demonstrated leukocytosis which has improved today BMP is unremarkable Liver profile: Pending Routine EEG was slow ASSESSMENT: 1. Down syndrome, at baseline is reportedly quite verbal and communicative. 2. Encephalopathy could be related to urinary tract infection or pneumonia or hypercapnia 3. Seizure just prior to admission. Would assume an epileptic seizure, with seizure threshold potentially lowered by other health issues currently. She hasreported history of seizure-like events or nonepileptic events and was not on any antiepileptic medication prior to admission. PLAN: 1. Continue Keppra at 500 mg twice daily 2. Outpatient neurology follow-up; no other recommendations at this time Documented By: Bam Stack DO 06/24/22 5825 Signed By: <Electronically signed by Bam Stack DO> 06/24/22 8329 [facility] Work Phone: Progress note Author Tiesha De [facility] June 25, 2022 1:26amNote Date/TimeMay 2022 4:41pmBar[place] [id number] Hospitalist Progress Note Signed Patient: Kelsey Graves MR#: [id number] : 1980 Acct:[id number] Age/Sex: 41 / F Adm Date: 3 Loc: Room: [address] [place] [address] Type: ADM IN Attending Dr: Tiesha De MD Copies to: ~ Date of Service: 06/24/2022 Subjective Subjective Narrative: Assessment And Plan Acute hypoxic and hypercapnic respiratory failure, CAP vs Aspiration pneumonia, Hypoxia, afebrile, leukocytosis resolving CT chest shows Diffuse groundglass parenchymal densities and mild basilar pleural-parenchymal changes. Minimal pleural effusions. Breathing Tx Zosyn IV and azithromycin Pulmonary was consulted, recommendation appreciated. Reported seizure Keppra ct brain shows no acute intracranial process Neurology was consulted, recommendation appreciated. DM blood sugars were reviewed sliding scale insulin and accuchecks. hold oral antidiabetic medication/metformin. INTERVAL HPI: As Above, Pt resting in bed. remain on O2, lethargic , Denies anypain Chronic diseases: Unless mentioned Above, Essential home medications have been continued. DVT Px: Addressed Disposition: To be determined Plan of care Discussed with: the medical team Exam Physical Exam Vital Signs: Temp Pulse Resp BP Pulse Ox O2 Del Method O2 Flow Rate 36.9 C 64 24 105/66 97 Nasal Cannula 5 06/24/22 12:00 06/24/22 16:16 06/24/22 16:16 06/24/22 15:00 06/24/22 12:00 06/24/22 16:00 06/24/22 16:00 FiO2 40 06/24/22 08:30 Narrative: GEN: NAD, not fully Cooperative NECK: ? JVD, supple LUNGS: bilateral rhonchi normal respiratory effort CV: nl S1 S2; no M/R/G ABD: Soft, ND, NT, can't access any mass or hepatosplenomegaly due to increaseabdominal girth due to obesity EXT: trace LE edema, No calf muscle tenderness NEURO: Limited exam, not fully cooperative; however move all her extremities; no overt focal neurological deficits. Pupils are equal and reactive to light PSYCH: lethargic Objective Lab Results 06/24/22 05:18 06/24/22 05:18 Microbiology Results Microbiology 06/23/22 06:15 Urine, Void Urine Culture - Preliminary 30,000 colonies/ml mixed bacterial skin contaminants 1 Day 06/22/22 20:48 Blood - Right Hand Blood Culture - Preliminary No Growth 1 Day 06/22/22 19:42 Blood - Left Hand Blood Culture - Preliminary No Growth 1 Day Meds Allergies and Active Meds Allergies diazepam Allergy (Verified 06/22/22 19:37) Unknown Reaction Active Meds: Active Medications Generic Name Dose Route Start Last Admin Trade Name Freq PRN Reason Stop Dose Admin Acetaminophen 650 mg 06/23/22 02:25 Acetaminophen 325 Mg Tablet PO 06/23/23 02:24 Q6HR PRN Pain Scale 1 - 3 or fever Albuterol/Ipratropium 3 ml 06/23/22 08:00 06/24/22 16:05 Ipratropium/Albuterol 0.5-3 Mg 3 Ml Ampul.Neb INHALATION 06/23/23 07:59 3 ml QID.RESP CARL Administration Ammonium Lactate 1 applic 06/23/22 09:00 06/24/22 09:15 Ammonium Lactate 12% Lot 226 Gm Bottle TOPICAL 06/23/23 08:59 1 applic BID CARL Administration Atorvastatin Calcium 10 mg 06/23/22 22:00 06/23/22 22:48 Atorvastatin 10 Mg Tablet PO 06/23/23 21:59 Not Given HS CARL Calcium Polycarbophil 625 mg 06/23/22 09:00 06/24/22 09:14 Calcium Polycarbophil 625 Mg Tablet PO 06/23/23 08:59 Not Given DAILY [facility] Dextrose 0 gm 06/23/22 10:37 Dextrose 50% In Water 25 Gm/50 Ml Syringe IV-PUSH 06/23/23 10:36 PRN PRN Hypoglycemia Enoxaparin Sodium 40 mg 06/23/22 10:00 06/24/22 09:19 Enoxaparin 40 Mg/0.4 Ml Syringe SUBCUT 06/23/23 09:59 40 mg DAILY@10 CARL Administration Fluticasone Propionate 1 spray 06/23/22 09:00 06/24/22 09:15 Fluticasone Propionate [place] 120 [place]/16 Gm Bottle INTRANASAL 06/23/23 08:59 Not Given DAILY [facility] Glucose 0 gm 06/23/22 10:37 Dextrose 40% Gel 15 Gm Tube PO 06/23/23 10:36 PRN PRN Hypoglycemia Guaifenesin/Dextromethorphan 10 ml 06/23/22 02:25 Guaif/Dextromethorphan Syrup 10 Ml Udc PO 06/23/23 02:24 Q8H PRN Cough Hydroxyzine Pamoate 50 mg 06/23/22 02:37 Hydroxyzine Pamoate 50 Mg Capsule PO 06/23/23 02:36 HS PRN Insomnia Azithromycin 500 mg in 250 mls @ 250 mls/hr 06/23/22 23:00 06/24/22 00:39 Zithromax IV 250 mls/hr Q24H CARL Administration Piperacillin Sod/Tazobactam Sod 3.375 gm in 100 mls @ 200 mls/hr 06/23/22 11:00 06/24/22 13:38 Zosyn IV 200 mls/hr Q6H CARL Administration Levetiracetam 500 mg/ Dextrose 105 mls @ 420 mls/hr 06/23/22 10:40 06/24/22 09:04 IV 06/23/23 10:39 420 mls/hr BID CARL Administration Lactated Ringer's 1,000 mls @ 75 mls/hr 06/23/22 10:45 06/24/22 13:37 Lactated Ringers IV 06/23/23 10:44 75 mls/hr .[id number] CARL Administration Dexmedetomidine HCl 400 mcg/ 100 mls @ 4.5 mls/hr 06/23/22 21:45 06/24/22 15:00 Dextrose IV 06/23/23 21:44 0 mcg/kg/hr .[id number] CARL 0 mls/hr Titration Protocol 0.2 MCG/KG/HR Insulin Aspart 0 units 06/23/22 12:00 06/24/22 13:05 Insulin Aspart 300 Units/3 Ml Insuln.Pen SUBCUT 06/23/23 11:59 Not Given Q6HR [facility] Protocol Lact Acid/Bifidobact/Lact [place]ac[place]/Streptoc Th 1 cap 06/23/22 09:00 06/24/22 09:13 L. Acidophilus/Strept/La P-Davonte 1 Cap Capsule PO 06/23/23 08:59 Not Given DAILY CARL Lactulose 10 gm 06/23/22 09:00 06/24/22 09:13 Lactulose 20 Gm/30 Ml Udc PO 06/23/23 08:59 Not Given BID [facility] Levothyroxine Sodium 75 mcg 06/23/22 06:30 06/24/22 06:43 Levothyroxine 75 Mcg Tablet PO 06/23/23 06:29 Not Given DAILY@0630 CARL Magnesium Hydroxide 15 ml 06/23/22 02:28 Magnesium Hydroxide Susp 30 Ml Udc PO 06/23/23 02:27 BID PRN Constipation Metformin HCl 250 mg 06/23/22 08:00 06/24/22 08:56 Metformin 500 Mg Tablet PO 06/23/23 07:59 Not Given BID.WITH.MEALS [facility] Multivitamins 1 tab 06/23/22 09:00 06/24/22 09:14 Multivitamin 1 Tab Tablet PO 06/23/23 08:59 Not Given DAILY CARL Nystatin 1 applic 06/23/22 09:00 06/24/22 09:15 Nystatin 100,000 Unit/Gram Powder 15 Gm Bottle TOPICAL 06/23/23 08:59 1 applic BID CARL Administration Oxycodone/Acetaminophen 1 tab 06/23/22 02:25 Oxycodone/Acetaminophen 5-325 Mg Tablet PO Q4H PRN Pain Scale 4 - 7 Pantoprazole Sodium 40 mg 06/24/22 10:05 06/24/22 12:49 Pantoprazole 40 Mg Vial IV-PUSH 06/24/23 10:04 40 mg DAILY CARL Administration Potassium Chloride 40 meq 06/23/22 02:25 Potassium Chloride Er 20 Meq Tab.Er.Prt PO 06/23/23 02:24 DAILY PRN Hypokalemia Sertraline HCl 100 mg 06/23/22 09:00 06/24/22 09:14 Sertraline 100 Mg Tablet PO 06/23/23 08:59 Not Given DAILY CARL Sodium Chloride 0 ml 06/22/22 19:36 06/22/22 23:20 Sodium Chloride 0.9 % 10 Ml Syringe IV-PUSH 06/22/23 19:35 10 ml PRN PRN Administration Flush Sodium Chloride 10 ml 06/23/22 10:45 06/24/22 12:29 Sodium Chloride 0.9 % 10 Ml Syringe IV-PUSH 06/23/23 10:44 Not Given Q8H CARL Sodium Chloride 0 ml 06/23/22 14:00 06/24/22 14:51 Sodium Chloride 0.9 % 10 Ml Syringe IV-PUSH 06/23/23 13:59 10 ml QSHIFT CARL Administration Sodium Chloride 10 ml 06/24/22 10:03 06/24/22 12:49 Sodium Chloride 0.9 % 10 Ml Syringe IV-PUSH 06/24/23 10:02 10 ml DAILY CARL Administration Sodium Chloride 10 ml 06/24/22 10:03 06/24/22 12:49 Sodium Chloride 0.9 % 10 Ml Vial.Pf INJECTION 06/24/23 10:02 10 ml DAILY CARL Administration Vitamin D 50 mcg 06/23/22 09:00 06/24/22 09:13 Cholecalciferol 25 Mcg (1,000 Units) Tablet PO 06/23/23 08:59 Not Given DAILY CARL A&P - Hospitalist Assessment/Plan (1) CAP (community acquired pneumonia): (2) Respiratory failure with hypercapnia: (3) Acute respiratory failure with hypoxia: (4) Aspiration pneumonia: (5) Seizure: (6) Down syndrome: (7) Diabetes: Plan . Documented By: Tiesha De MD 06/24/22 1640 Signed By: <Electronically signed by Tiesha De MD> 06/25/22 0126 [facility] Work Phone: Progress note Author Kamal [facility] June 25, 2022 3:35pmNote Date/TimeMay 2022 3:30pm[place] [address] Pulmonology Progress Note Signed Patient: Kelsey Graves MR#: [id number] : 1980 Acct:[id number] Age/Sex: 41 / F Adm Date: 3 Loc: Room: [address] [place] [address] Type: ADM IN Attending Dr: Tiesha De MD Copies to: ~ Date of Service: 06/25/2022 Subjective Subjective Narrative: Patient is doing very well today, fully alert awake oxygenating well on 4 L per nasal cannula, appears comfortable in no distress with improving cough, and significant improvement in auscultation to her lungs. Tolerating BiPAP at nightand with naps during the day otherwise doing well on a nasal cannula. Hemodynamically stable, afebrile Exam Physical Exam Vital Signs: Temp Pulse Resp BP Pulse Ox O2 Del Method O2 Flow Rate 98.5 F 80 20 111/56 L 95 Nasal Cannula 4 06/25/22 08:00 06/25/22 12:19 06/25/22 12:19 06/25/22 12:00 06/25/22 05:35 06/25/22 13:10 06/25/22 13:10 FiO2 40 06/25/22 06:00 Narrative: General: Patient is alert awake smiling, conversing and appeared in no distress at rest very pleasant, did not have any significant cough or audible wheezing Eyes: Pupils equal round reactive to light HEENT: Normocephalic, atraumatic, oral mucosa moist Neck: Supple no lymphadenopathy or thyromegaly Cardiovascular: S1, S2, normal sounds, no murmurs or gallops noted, regular rhythm Lungs: Diminished breath sounds bilaterally but currently clear to auscultation with occasional basilar rhonchi only Extremities: Improving peripheral edema Neurologic: As detailed above Objective Intake and Output I&O - Last 24 Hours: Intake & Output 06/24/22 06/25/22 06/25/22 23:59 07:59 15:59 Intake Total 1160 / 3530 1450 / 1950 500 / 1950 Output Total 350 / 750 400 / 750 Balance 1160 / 3530 1100 / 1200 100 / 1200 Weight 85.4 kg Labs 05/01/23 05:18 06/24/22 05:18 Microbiology Micro: Microbiology 06/23/22 06:15 Urine Culture - Final Urine, Void 75,000 colonies/ml mixed bacterial skin contaminants 2 Days 06/22/22 20:48 Blood Culture - Preliminary Blood - Right Hand No Growth 2 Days 06/22/22 19:42 Blood Culture - Preliminary Blood - Left Hand No Growth 2 Days Assessment/Plan Assessment/Plan (1) Acute hypercapnic respiratory failure: Plan: Clinically with significant improvement as mentioned above (2) Obstructive sleep apnea: Plan: Continue with BiPAP at night and as needed, switching to regular BiPAP settings of 15/10 and attempting to arrange for similar equipments and settings on discharge (3) Pulmonary vascular congestion: Plan: Overall fluid overload, part of appearance of vascular congestion is likely due to micro atelectatic changes (4) Obesity: Plan: Associated with hypoventilation (5) Acute hypoxemic respiratory failure: Plan: Stable on nasal cannula while awake Plan Continue current plans with noninvasive ventilation or BiPAP for severe obstructive sleep apnea, lynn used during sleep at night and with naps during the day, otherwise continue with oxygen therapy per nasal cannula and titrate astolerated. Continue with PT/OT, speech therapy for swallowing evaluation. Documented By: Nabil Holman MD 06/25/22 1528 Signed By: <Electronically signed by Nabil Holman MD> 06/25/22 1535 [facility] Work Phone: Progress note Author Tiesha De [facility] June 26, 2022 1:09amNote Date/TimeMay 2022 7:20pm[place] [address] Hospitalist Progress Note Signed Patient: Kelesy Graves MR#: [id number] : 1980 Acct:[id number] Age/Sex: 41 / F Adm Date: 3 Loc: Room: [address] [place] [address] Type: ADM IN Attending Dr: Tiesha De MD Copies to: ~ Date of Service: 06/25/2022 Subjective Subjective Narrative: Assessment And Plan Acute hypoxic and hypercapnic respiratory failure, CAP vs Aspiration pneumonia, Hypoxia is better , afebrile CT chest shows Diffuse groundglass parenchymal densities and mild basilar pleural-parenchymal changes. Minimal pleural effusions. Blood Cx remain negative Breathing Tx Zosyn IV and azithromycin Pulmonary was consulted, recommendation appreciated. Move out ICU Reported seizure Keppra ct brain shows no acute intracranial process Neurology was consulted, recommendation appreciated. DM blood sugars were reviewed sliding scale insulin and accuchecks. hold oral antidiabetic medication/metformin. INTERVAL HPI: As Above, Pt resting in bed. remain on O2, Denies any pain Chronic diseases: Unless mentioned Above, Essential home medications have been continued. DVT Px: Addressed Disposition: To be determined Plan of care Discussed with: the medical team Exam Physical Exam Vital Signs: Temp Pulse Resp BP Pulse Ox O2 Del Method O2 Flow Rate 36.9 C 94 H 20 111/56 L 95 Nasal Cannula 3 06/25/22 08:00 06/25/22 16:02 06/25/22 16:02 06/25/22 12:00 06/25/22 05:35 06/25/22 16:02 06/25/22 16:02 FiO2 40 06/25/22 06:00 Narrative: GEN: NAD, Cooperative NECK: ? JVD, supple LUNGS: bilateral rhonchi normal respiratory effort CV: nl S1 S2; no M/R/G ABD: Soft, ND, NT, can't access any mass or hepatosplenomegaly due to increaseabdominal girth due to obesity EXT: trace LE edema, No calf muscle tenderness NEURO: move all her extremities; no overt focal neurological deficits PSYCH: Alert Objective Lab Results 06/24/22 05:18 06/24/22 05:18 Microbiology Results Microbiology 06/23/22 06:15 Urine, Void Urine Culture - Final 75,000 colonies/ml mixed bacterial skin contaminants 2 Days 06/22/22 20:48 Blood - Right Hand Blood Culture - Preliminary No Growth 2 Days 06/22/22 19:42 Blood - Left Hand Blood Culture - Preliminary No Growth 2 Days Meds Allergies and Active Meds Allergies diazepam Allergy (Verified 06/22/22 19:37) Unknown Reaction Active Meds: Active Medications Generic Name Dose Route Start Last Admin Trade Name Freq PRN Reason Stop Dose Admin Acetaminophen 650 mg 06/23/22 02:25 Acetaminophen 325 Mg Tablet PO 06/23/23 02:24 Q6HR PRN Pain Scale 1 - 3 or fever Albuterol/Ipratropium 3 ml 06/23/22 08:00 06/25/22 16:02 Ipratropium/Albuterol 0.5-3 Mg 3 Ml Ampul.Neb INHALATION 06/23/23 07:59 3 ml QID.RESP CARL Administration Ammonium Lactate 1 applic 06/23/22 09:00 06/25/22 09:30 Ammonium Lactate 12% Lot 226 Gm Bottle TOPICAL 06/23/23 08:59 1 applic BID CARL Administration Atorvastatin Calcium 10 mg 06/23/22 22:00 06/24/22 21:09 Atorvastatin 10 Mg Tablet PO 06/23/23 21:59 10 mg HS CARL Administration Calcium Polycarbophil 625 mg 06/23/22 09:00 06/25/22 09:30 Calcium Polycarbophil 625 Mg Tablet PO 06/23/23 08:59 625 mg DAILY CARL Administration Dextrose 0 gm 06/23/22 10:37 Dextrose 50% In Water 25 Gm/50 Ml Syringe IV-PUSH 06/23/23 10:36 PRN PRN Hypoglycemia Enoxaparin Sodium 40 mg 06/23/22 10:00 06/25/22 09:30 Enoxaparin 40 Mg/0.4 Ml Syringe SUBCUT 06/23/23 09:59 40 mg DAILY@10 CARL Administration Fluticasone Propionate 1 spray 06/23/22 09:00 06/25/22 09:30 Fluticasone Propionate [place] 120 [place]/16 Gm Bottle INTRANASAL 06/23/23 08:59 1 spray DAILY CARL Administration Glucose 0 gm 06/23/22 10:37 Dextrose 40% Gel 15 Gm Tube PO 06/23/23 10:36 PRN PRN Hypoglycemia Guaifenesin/Dextromethorphan 10 ml 06/23/22 02:25 Guaif/Dextromethorphan Syrup 10 Ml Udc PO 06/23/23 02:24 Q8H PRN Cough Hydroxyzine Pamoate 50 mg 06/23/22 02:37 Hydroxyzine Pamoate 50 Mg Capsule PO 06/23/23 02:36 HS PRN Insomnia Azithromycin 500 mg in 250 mls @ 250 mls/hr 06/23/22 23:00 06/25/22 06:07 Zithromax IV Infused Q24H CARL Infusion Piperacillin Sod/Tazobactam Sod 3.375 gm in 100 mls @ 200 mls/hr 06/23/22 11:00 06/25/22 12:32 Zosyn IV 200 mls/hr Q6H CARL Administration Levetiracetam 500 mg/ Dextrose 105 mls @ 420 mls/hr 06/23/22 10:40 06/25/22 09:30 IV 06/23/23 10:39 420 mls/hr BID CARL Administration Lactated Ringer's 1,000 mls @ 75 mls/hr 06/23/22 10:45 06/25/22 18:11 Lactated Ringers IV 06/23/23 10:44 Not Given .[id number] CARL Insulin Aspart 0 units 06/23/22 12:00 06/25/22 17:01 Insulin Aspart 300 Units/3 Ml Insuln.Pen SUBCUT 06/23/23 11:59 3 units Q6HR CARL Administration Protocol Lact Acid/Bifidobact/Lact [place]/Streptoc Th 1 cap 06/23/22 09:00 06/25/22 09:30 L. Acidophilus/Strept/La P-Dav[place] 1 Cap Capsule PO 06/23/23 08:59 1 cap DAILY CARL Administration Lactulose 10 gm 06/23/22 09:00 06/25/22 09:30 Lactulose 20 Gm/30 Ml Udc PO 06/23/23 08:59 10 gm BID CARL Administration Levothyroxine Sodium 75 mcg 06/23/22 06:30 06/25/22 06:26 Levothyroxine 75 Mcg Tablet PO 06/23/23 06:29 75 mcg DAILY@0630 CARL Administration Magnesium Hydroxide 15 ml 06/23/22 02:28 Magnesium Hydroxide Susp 30 Ml Udc PO 06/23/23 02:27 BID PRN Constipation Metformin HCl 250 mg 06/23/22 08:00 06/25/22 16:24 Metformin 500 Mg Tablet PO 06/23/23 07:59 250 mg BID.WITH.MEALS CARL Administration Multivitamins 1 tab 06/23/22 09:00 06/25/22 09:30 Multivitamin 1 Tab Tablet PO 06/23/23 08:59 1 tab DAILY CARL Administration Nystatin 1 applic 06/23/22 09:00 06/25/22 09:30 Nystatin 100,000 Unit/Gram Powder 15 Gm Bottle TOPICAL 06/23/23 08:59 1 applic BID CARL Administration Oxycodone/Acetaminophen 1 tab 06/23/22 02:25 Oxycodone/Acetaminophen 5-325 Mg Tablet PO Q4H PRN Pain Scale 4 - 7 Pantoprazole Sodium 40 mg 06/24/22 10:05 06/25/22 09:30 Pantoprazole 40 Mg Vial IV-PUSH 06/24/23 10:04 40 mg DAILY CARL Administration Potassium Chloride 40 meq 06/23/22 02:25 Potassium Chloride Er 20 Meq Tab.Er.Prt PO 06/23/23 02:24 DAILY PRN Hypokalemia Sertraline HCl 100 mg 06/23/22 09:00 06/25/22 09:30 Sertraline 100 Mg Tablet PO 06/23/23 08:59 100 mg DAILY CARL Administration Sodium Chloride 0 ml 06/22/22 19:36 06/22/22 23:20 Sodium Chloride 0.9 % 10 Ml Syringe IV-PUSH 06/22/23 19:35 10 ml PRN PRN Administration Flush Sodium Chloride 10 ml 06/23/22 10:45 06/25/22 11:15 Sodium Chloride 0.9 % 10 Ml Syringe IV-PUSH 06/23/23 10:44 10 ml Q8H CARL Administration Sodium Chloride 0 ml 06/23/22 14:00 06/25/22 16:00 Sodium Chloride 0.9 % 10 Ml Syringe IV-PUSH 06/23/23 13:59 10 ml QSHIFT CARL Administration Sodium Chloride 10 ml 06/24/22 10:03 06/25/22 11:14 Sodium Chloride 0.9 % 10 Ml Syringe IV-PUSH 06/24/23 10:02 10 ml DAILY CARL Administration Sodium Chloride 10 ml 06/24/22 10:03 06/25/22 11:14 Sodium Chloride 0.9 % 10 Ml Vial.Pf INJECTION 06/24/23 10:02 10 ml DAILY CARL Administration Vitamin D 50 mcg 06/23/22 09:00 06/25/22 09:30 Cholecalciferol 25 Mcg (1,000 Units) Tablet PO 06/23/23 08:59 50 mcg DAILY CRAL Administration A&P - Hospitalist Assessment/Plan (1) CAP (community acquired pneumonia): (2) Respiratory failure with hypercapnia: (3) Acute respiratory failure with hypoxia: (4) Aspiration pneumonia: (5) Seizure: (6) Down syndrome: (7) Diabetes: Plan . Documented By: Tiesha De MD 06/25/221919 Signed By: <Electronically signed by Tiesha De MD> 06/26/22 010 [facility] Work Phone: Progress note Author Nabil Holman [facility] June 26, 2022 3:33pmNote Date/TimeMay 2022 3:33[place] [address] Pulmonology Progress Note Signed Patient: Kelsey Graves MR#: [id number] : 1980 Acct:[id number] Age/Sex: 41 / F Adm Date: 3 Loc: Room: [address] [place] [address] Type: ADM IN Attending Dr: Tiesha De MD Copies to: ~ Date of Service: 06/26/2022 Subjective Subjective Narrative: Patient continues to improve, remains on nasal cannula while awake, BiPAP duringsleep, marginal butadequate oxygenation without significant clinical worsening. Exam Physical Exam Vital Signs: Temp Pulse Resp BP Pulse Ox O2 Del Method O2 Flow Rate 98.8 F 104 H 22 120/77 90 L Nasal Cannula 5 06/26/22 15:18 06/26/22 15:18 06/26/22 15:18 06/26/22 15:18 06/26/22 15:18 06/26/22 15:18 06/26/22 15:18 FiO2 40 06/26/22 04:56 Narrative: General: Patient is alert awake smiling, conversing and appeared in no distress at rest very pleasant, did not have any significant cough or audible wheezing Eyes: Pupils equal round reactive to light HEENT: Normocephalic, atraumatic, oral mucosa moist Neck: Supple no lymphadenopathy or thyromegaly Cardiovascular: S1, S2, normal sounds, no murmurs or gallops noted, regular rhythm Lungs: Diminished breath sounds bilaterally but currently clear to auscultation with occasional basilar rhonchi only Extremities: Improving peripheral edema Neurologic: As detailed above Objective Intake and Output I&O - Last 24 Hours: Intake & Output 06/25/22 06/26/22 06/26/22 23:59 07:59 15:59 Intake Total 910 / 2860 450 / 1205 755 / 1205 Output Total 100 / 850 Balance 2009 450 / 1205 755 / 1205 Weight 85.4 kg Labs 06/24/22 05:18 06/24/22 05:18 Microbiology Micro: Microbiology 06/22/22 20:48 Blood Culture - Preliminary Blood - Right Hand No Growth 3 Days 06/22/22 19:42 Blood Culture - Preliminary Blood - Left Hand No Growth 3 Days Assessment/Plan Assessment/Plan (1) Acute hypercapnic respiratory failure: Plan: Clinically with significant improvement as mentioned above (2) Obstructive sleep apnea: Plan: Continue with BiPAP at night and as needed, switching to regular BiPAP settings of 15/10 and attempting to arrange for similar equipments and settings on discharge (3) Pulmonary vascular congestion: Plan: Overall fluid overload, part of appearance of vascular congestion is likely due to micro atelectatic changes (4) Obesity: Plan: Associated with hypoventilation (5) Acute hypoxemic respiratory failure: Plan: Stable on nasal cannula while awake Plan Continue current treatment plans, will continue to follow Documented By: Nabil Holman MD 06/26/221531 Signed By: <Electronically signed by Nabil Holman MD> 06/26/221532 [facility] Work Phone: Progress note Author Tiesha De [facility] June 27, 2022 1:16amNote Date/TimeMay 2022 7:47pm[place] [id number] Hospitalist Progress Note Signed Patient: Kelsey Graves MR#: [id number] : 1980 Acct:[id number] Age/Sex: 41 / F Adm Date: 3 Loc: Room: [address] [place] [address] Type: ADM IN Attending Dr: Tiesha De MD Copies to: ~ Date of Service: 06/26/2022 Subjective Subjective Narrative: Assessment And Plan 41F with PMH of Down SYndrome,? Hypothyroidism, pseudoseizures , DM, AVMs, JANET, Constipation, MO(BMI > 40) who p/w seizures and admitted for the evaluation and treatment? Acute hypoxic and hypercapnic respiratory failure, CAP vs Aspiration pneumonia, she is on 4L o2 via nasal cannula , afebrile CT chest shows Diffuse groundglass parenchymal densities and mild basilar pleural-parenchymal changes. Minimal pleural effusions. Blood Cx remain negative she was started on Zosyn IV and azithromycin . agree with switch to oral Augmentin Pulmonary was consulted, recommendation appreciated. Move out ICU Reported seizure Keppra ct brain shows no acute intracranial process Neurology was consulted, recommendation appreciated. DM blood sugars were reviewed sliding scale insulin and accuchecks. hold oral antidiabetic medication/metformin. Functional impairment PT/OT recommended Intermediate Facility vs Inpatient Rehab Unit She was reviewed by our rehab and found not to be a candidate. Family was not happy and ask for review. Will consult Physiatry for second evaluation INTERVAL HPI: As Above, Pt resting in bed. remain on O2, Denies any pain Chronic diseases: Unless mentioned Above, Essential home medications have been continued. DVT Px: Addressed Disposition: To be determined Plan of care Discussed with: the medical team Exam Physical Exam Vital Signs: Temp Pulse Resp BP Pulse Ox O2 Del Method O2 Flow Rate 37.1 C 80 20 120/77 90 L Nasal Cannula 4 06/26/22 15:18 06/26/22 16:00 06/26/22 16:00 06/26/22 15:18 06/26/22 15:18 06/26/22 16:00 06/26/22 16:00 FiO2 40 06/26/22 04:56 Narrative: GEN: NAD, Cooperative NECK: ? JVD, supple LUNGS: bilateral rhonchi normal respiratory effort CV: nl S1 S2; no M/R/G ABD: Soft, ND, NT, can't access any mass or hepatosplenomegaly due to increaseabdominal girth due to obesity EXT: trace LE edema, No calf muscle tenderness NEURO: move all her extremities; no overt focal neurological deficits PSYCH: Alert Objective Lab Results 06/24/22 05:18 06/24/22 05:18 Microbiology Results Microbiology 06/22/22 20:48 Blood - Right Hand Blood Culture - Preliminary No Growth 3 Days 06/22/22 19:42 Blood - Left Hand Blood Culture - Preliminary No Growth 3 Days Meds Allergies and Active Meds Allergies diazepam Allergy (Verified 06/22/22 19:37) Unknown Reaction Active Meds: Active Medications Generic Name Dose Route Start Last Admin Trade Name Freq PRN Reason Stop Dose Admin Acetaminophen 650 mg 06/23/22 02:25 Acetaminophen 325 Mg Tablet PO 06/23/23 02:24 Q6HR PRN Pain Scale 1 - 3 or fever Albuterol/Ipratropium 3 ml 06/23/22 08:00 06/26/22 16:08 Ipratropium/Albuterol 0.5-3 Mg 3 Ml Ampul.Neb INHALATION 06/23/23 07:59 3 ml QID.RESP CARL Administration Ammonium Lactate 1 applic 06/23/22 09:00 06/26/22 08:59 Ammonium Lactate 12% Lot 226 Gm Bottle TOPICAL 06/23/23 08:59 1 applic BID CARL Administration Amoxicillin/Clavulanate Potassium 1 tab 06/26/22 21:00 Amoxicillin/Clav 875-125 Mg Tablet PO 06/28/22 23:59 BID CARL Atorvastatin Calcium 10 mg 06/23/22 22:00 06/25/22 21:14 Atorvastatin 10 Mg Tablet PO 06/23/23 21:59 10 mg HS CARL Administration Calcium Polycarbophil 625 mg 06/23/22 09:00 06/26/22 08:54 Calcium Polycarbophil 625 Mg Tablet PO 06/23/23 08:59 625 mg DAILY CARL Administration Dextrose 0 gm 06/23/22 10:37 Dextrose 50% In Water 25 Gm/50 Ml Syringe IV-PUSH 06/23/23 10:36 PRN PRN Hypoglycemia Enoxaparin Sodium 40 mg 06/23/22 10:00 06/26/22 10:32 Enoxaparin 40 Mg/0.4 Ml Syringe SUBCUT 06/23/23 09:59 40 mg DAILY@10 CARL Administration Fluticasone Propionate 1 spray 06/23/22 09:00 06/26/22 08:55 Fluticasone Propionate [place] 120 [place]/16 Gm Bottle INTRANASAL 06/23/23 08:59 1 spray DAILY CARL Administration Glucose 0 gm 06/23/22 10:37 Dextrose 40% Gel 15 Gm Tube PO 06/23/23 10:36 PRN PRN Hypoglycemia Guaifenesin/Dextromethorphan 10 ml 06/23/22 02:25 Guaif/Dextromethorphan Syrup 10 Ml Udc PO 06/23/23 02:24 Q8H PRN Cough Hydroxyzine Pamoate 50 mg 06/23/22 02:37 Hydroxyzine Pamoate 50 Mg Capsule PO 06/23/23 02:36 HS PRN Insomnia Insulin Aspart 0 units 06/26/22 08:00 06/26/22 17:59 Insulin Aspart 300 Units/3 Ml Insuln.Pen SUBCUT 06/26/23 07:59 4 units TID.WM.HS CARL Administration Protocol Lact Acid/Bifidobact/Lact [place]/Streptoc Th 1 cap 06/23/22 09:00 06/26/22 08:54 L. Acidophilus/Strept/[place] P-[place] 1 Cap Capsule PO 06/23/23 08:59 1 cap DAILY CARL Administration Lactulose 10 gm 06/23/22 09:00 06/26/22 08:55 Lactulose 20 Gm/30 Ml Udc PO 06/23/23 08:59 Not Given BID CARL Levetiracetam 500 mg 06/26/22 21:00 Levetiracetam 500 Mg Tablet PO 06/26/23 20:59 BID CARL Levothyroxine Sodium 75 mcg 06/23/22 06:30 06/26/22 06:51 Levothyroxine 75 Mcg Tablet PO 06/23/23 06:29 75 mcg DAILY@0630 CARL Administration Magnesium Hydroxide 15 ml 06/23/22 02:28 Magnesium Hydroxide Susp 30 Ml Udc PO 06/23/23 02:27 BID PRN Constipation Multivitamins 1 tab 06/23/22 09:00 06/26/22 08:55 Multivitamin 1 Tab Tablet PO 06/23/23 08:59 1 tab DAILY CARL Administration Nystatin 1 applic 06/23/22 09:00 06/26/22 08:59 Nystatin 100,000 Unit/Gram Powder 15 Gm Bottle TOPICAL 06/23/23 08:59 1 applic BID CARL Administration Oxycodone/Acetaminophen 1 tab 06/23/22 02:25 Oxycodone/Acetaminophen 5-325 Mg Tablet PO Q4H PRN Pain Scale 4 - 7 Potassium Chloride 40 meq 06/23/22 02:25 Potassium Chloride Er 20 Meq Tab.Er.Prt PO 06/23/23 02:24 DAILY PRN Hypokalemia Sertraline HCl 100 mg 06/23/22 09:00 06/26/22 08:54 Sertraline 100 Mg Tablet PO 06/23/23 08:59 100 mg DAILY CARL Administration Sodium Chloride 0 ml 06/22/22 19:36 06/22/22 23:20 Sodium Chloride 0.9 % 10 Ml Syringe IV-PUSH 06/22/23 19:35 10 ml PRN PRN Administration Flush Sodium Chloride 0 ml 06/23/22 14:00 06/26/22 14:30 Sodium Chloride 0.9 % 10 Ml Syringe IV-PUSH 06/23/23 13:59 10 ml QSHIFT CARL Administration Vitamin D 50 mcg 06/23/22 09:00 06/26/22 08:54 Cholecalciferol 25 Mcg (1,000 Units) Tablet PO 06/23/23 08:59 50 mcg DAILY CARL Administration A&P - Hospitalist Assessment/Plan (1) CAP (community acquired pneumonia): (2) Respiratory failure with hypercapnia: (3) Acute respiratory failure with hypoxia: (4) Aspiration pneumonia: (5) Seizure: (6) Down syndrome: (7) Diabetes: Plan . Documented By: Tiesha De MD 06/26/221946 Signed By: <Electronically signed by Tiesha De MD> 06/27/22 0116 [facility] Work Phone: Progress note Author Nabil Holman [facility] June 27, 2022 2:40pmNote Date/TimeMay 2022 2:40[place] [address] Pulmonology Progress Note Signed Patient: Kelsey Graves MR#: [id number] : 1980 Acct:[id number] Age/Sex: 41 / F Adm Date: 3 Loc: Room: [address] [place] [address] Type: ADM IN Attending Dr: Tiesha De MD Copies to: ~ Date of Service: 06/27/2022 Subjective Subjective Narrative: Patient remains stable on current treatment including 6 L of oxygen per nasal cannula while awake and BiPAP at night. Remains stable in no distress, very pleasant, has had mild cough and no significant sputum production lately. Exam Physical Exam Vital Signs: Temp Pulse Resp BP Pulse Ox O2 Del Method O2 Flow Rate 98.1 F 92 H 22 125/70 93 L Nasal Cannula 6 06/27/22 11:31 06/27/22 11:31 06/27/22 11:31 06/27/22 11:31 06/27/22 11:31 06/27/22 11:31 06/27/22 11:31 FiO2 45 06/27/22 04:38 Narrative: General: Patient is alert awake smiling, conversing and appeared in no distress at rest very pleasant, did not have any significant cough or audible wheezing Eyes: Pupils equal round reactive to light HEENT: Normocephalic, atraumatic, oral mucosa moist Neck: Supple no lymphadenopathy or thyromegaly Cardiovascular: S1, S2, normal sounds, no murmurs or gallops noted, regular rhythm Lungs: Diminished breath sounds bilaterally but currently clear to auscultation with occasional basilar rhonchi only Extremities: Improving peripheral edema Neurologic: As detailed above Objective Intake and Output I&O - Last 24 Hours: Intake & Output 06/26/22 06/27/22 06/27/22 23:59 07:59 15:59 Intake Total 360 / 1565 100 / 900 800 / 900 Balance 360 / 1565 100 / 900 800 / 900 Weight 88.9 kg Labs 06/24/22 05:18 06/24/22 05:18 Microbiology Micro: Microbiology 06/22/22 20:48 Blood Culture - Preliminary Blood - Right Hand No Growth 4 Days 06/22/22 19:42 Blood Culture - Preliminary Blood - Left Hand No Growth 4 Days Assessment/Plan Assessment/Plan (1) Acute hypercapnic respiratory failure: Plan: Clinically with significant improvement as mentioned above (2) Obstructive sleep apnea: Plan: Continue with BiPAP at night and as needed, switching to regular BiPAP settings of 15/10 and attempting to arrange for similar equipments and settings on discharge (3) Pulmonary vascular congestion: Plan: Overall fluid overload, part of appearance of vascular congestion is likely due to micro atelectatic changes (4) Obesity: Plan: Associated with hypoventilation (5) Acute hypoxemic respiratory failure: Plan: Stable on nasal cannula while awake Plan Continue current treatment plans, will continue to follow Documented By: Nabil Holman MD 06/27/22 1439 Signed By: <Electronically signed by Nabil Holman MD> 06/27/22 1440 [facility] Work Phone: Progress note No data available for this section [facility] IncProgress note* Clinical Note Date No Information [facility] Work Phone: Rewxaj for referral (narrative)No reason for referral information availableU[facility]tr Work Phone: Refgop for referral (narrative)* Reason For Referral No Information [facility] Work Phone: Rekmod for visit Narrative* Consultation (Routine) - ClosedSpecialtyDiagnoses / ProceduresReferred By ContactReferred To Contact Urology Diagnoses Diabetes mellitus due to underlying condition with diabetic neuropathy, 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) Urinary tract infection with hematuria, site unspecified Procedures [place] OFFICE/OUTPATIENT NEW HIGH MDM 60 MINUTES Delgado Valdez MD [address] [place] [address] Phone: tel: fax: Valdemar Watts MD [address] [place] [address] Phone: tel: fax: Referral IDStatusReasonStart DateExpiration DateVisits RequestedVisits [id number] Specialty Services Required NOMS HealthcareReview of systems Narrative - Reported* System Pos/Neg Findings No Information [facility] Work Phone: Summary Purpose Family History No Family History Records Found Relationship Condition Age at Onset Recorded Date/T bonny father Unknown Not SpecifiedDeceasedUnknown Relationship Condition Age at Onset Recorded Date/T bonny father Unknown motherDeceasedUnknown Relationship Condition Age at Onset Recorded Date/T bonny father Unknown motherDeceasedUnknownMalignant neoplasmUnknown Family Member Type Diagnosis Age At Onset No Information Advance Directives No Advanced Directives Records Found Advance Directive Response Recorded Date/ Time Advance Directives No March 08, 2017 12:11pm Advance Directive Response Recorded Date/ Time Advance Directives No March 08, 2017 11:11am Advance Directive Response Recorded Date/ Time Advance Directives No March 20, 2023 2:47pm Advance Directive Response Recorded Date/ Time Advance Directives No March 12:32pm Advance Directive Response Recorded Date/ Time Advance Directives No March 1:32pm Advance Directive Response Recorded Date/ Time Advance Directives No October 15, 2023 9:56am Advance Directive Response Recorded Date/ Time Advance Directives No October 15, 2023 8:56am Directive Yes / No Effective Date File Name No Information Chief Complaint and Reason for Visit Chief Complaint seizures Reason for Visit CAP (community acqui red pneumonia) Hypoxemia Psychiatric pseudoseizure Chief Complaint seizures Reason for Visit Acute hypercapnic re spiratory failure Acute hypoxemic respiratory failure Acute respiratory failure with hypoxia Aspiration pneumonia CAP (community acquired pneumonia) Diabetes Down syndrome Hypoxemia Obesity Obstructive sleep apnea Pneumonitis Psychiatric pseudoseizure Pulmonary vascular congestion Respiratory failure with hypercapnia Seizure UTI (urinary tract infection) Chief Complaint seizures Reason for Visit Acute and chronic re spiratory failure with hypercapnia Acute hypercapnic respiratory failure Acute hypoxemic respiratory failure Acute respiratory failure with hypoxia Acute respiratory failure with hypoxia and hypercapnia Aspiration pneumonia CAP (community acquired pneumonia) Diabetes Down syndrome Hypoxemia Impaired mobility and ADLs Obesity Obstructive sleep apnea Pneumonitis Psychiatric pseudoseizure Pulmonary vascular congestion Respiratory failure with hypercapnia Seizure UTI (urinary tract infection) Chief Complaint Pneumonia J18.9 Chief Complaint Pneumonia J18.9 seizure Chief Complaint Pneumonia J18.9 seizure J18.9 Chief Complaint J06.9 Chief Complaint J06.9 Z12.31 Chief Complaint 3 Mo F/U Pneumonia, Acute Respiratory Fa J06.9 Z12.31 seizure low pulse ox Chief Complaint 3 Mo F/U Pneumonia, Acute Respiratory Fa J06.9 Z12.31 seizure low pulse ox Seizure like activity Chief Complaint Z12.31 seizure low pulse ox Seizure like activity fall-back pain fall head injury lt rib pain Chief Complaint low pulse ox Seizure like activity fall-back pain fall head injury lt rib pain pulmonary adema, acute chronic resp failure pulmonary adema, acute chronic resp failure pulmonary adema, acute chronic resp failure pulmonary adema, acute chronic resp failure pulmonary adema, acute chronic resp failureReason for VisitAcute diastolic (congestive) heart failure Acute on chronic respiratory failure with hypoxia and hypercapnia Acute respiratory failure with hypoxia and hypercapnia BMI 39.0-39.9,adult CHF (congestive heart failure) Counseling regarding advance directives and goals of care Diabetes Diabetes mellitus with hyperglycemia Down syndrome History of seizure HTN (hypertension) Hypothyroid Intertrigo Obstructive sleep apnea Pneumonitis UTI (urinary tract infection) Chief Complaint low pulse ox Seizure like activity fall-back pain fall head injury lt rib pain pulmonary adema, acute chronic resp failure pulmonary adema, acute chronic resp failure pulmonary adema, acute chronic resp failure pulmonary adema, acute chronic resp failure pulmonary adema, acute chronic resp failureReason for VisitAcute diastolic (congestive) heart failure Acute on chronic respiratory failure with hypoxia and hypercapnia Acute respiratory failure with hypoxia and hypercapnia BMI 39.0-39.9,adult Counseling regarding advance directives and goals of care Diabetes Diabetes mellitus with hyperglycemia Down syndrome History of seizure HTN (hypertension) Hypothyroid Obstructive sleep apnea Pneumonitis Chief Complaint fall-back pain fall head injury lt rib pain pulmonary adema, acute chronic resp failure pulmonary adema, acute chronic resp failure pulmonary adema, acute chronic resp failure pulmonary adema, acute chronic resp failure pulmonary adema, acute chronic resp failure r/o uti CrampsReason for VisitAcute diastolic (congestive) heart failure Acute on chronic respiratory failure with hypoxia and hypercapnia Acute respiratory failure with hypoxia and hypercapnia BMI 39.0-39.9,adult Counseling regarding advance directives and goals of care Diabetes Diabetes mellitus with hyperglycemia Down syndrome History of seizure HTN (hypertension) Hypothyroid Obstructive sleep apnea Pneumonitis Chief Complaint fall head injury lt rib pain pulmonary adema, acute chronic resp failure pulmonary adema, acute chronic resp failure pulmonary adema, acute chronic resp failure pulmonary adema, acute chronic resp failure pulmonary adema, acute chronic resp failure r/o uti CrampsReason for VisitAcute diastolic (congestive) heart failure Acute on chronic respiratory failure with hypoxia and hypercapnia Acute respiratory failure with hypoxia and hypercapnia BMI 39.0-39.9,adult Counseling regarding advance directives and goals of care Diabetes Diabetes mellitus with hyperglycemia Down syndrome History of seizure HTN (hypertension) Hypothyroid Obstructive sleep apnea Pneumonitis Chief Complaint Cramps Diabetes Low pulse ox Chief Complaint Diabetes Low pulse ox Chief Complaint Admit Date Congestive Heart Failure November 04, 2023 5:45pm Seizure January 15, 2024 7:54am Chief Complaint Admit Date Screening April 14, 2024 11:14am Chief Complaint Admit Date Screening April 14, 2024 11:14am seizure April 19, 2024 8:09am Chief Complaint Admit Date Screening April 14, 2024 11:14am seizure April 19, 2024 8:09am seizure April 24, 2024 9:44 am Chief Complaint Admit Date Screening April 14, 2024 11:14am seizure April 19, 2024 8:09am seizure April 24, 2024 9:44 am UTI May 25, 2024 6:49 pm Chief Complaint Admit Date Z00.00 E11.9 E66.812 E78.5 E11.41 E78.00 August 25, 2024 9:06am Chief Complaint Admit Date Z00.00 E11.9 E66.812 E78.5 E11.41 E78.00 August 25, 2024 9:06am Amb Documentation September 21, 2024 2:31 pm SYNCOPE October 04, 2024 4: 05pm Chief Complaint Admit Date Z00.00 E11.9 E66.812 E78.5 E11.41 E78.00 August 25, 2024 9:06am Amb Documentation September 21, 2024 2:31 pm SYNCOPE October 04, 2024 4: 05pm Seizure October 05, 2024 8: 24am Chief Complaint Admit Date Z00.00 E11.9 E66.812 E78.5 E11.41 E78.00 August 25, 2024 9:06am Amb Documentation September 21, 2024 2:31 pm SYNCOPE October 04, 2024 4: 05pm Seizure October 05, 2024 8: 24am seizure October 05, 2024 7: 29pm Chief Complaint Admit Date Z00.00 E11.9 E66.812 E78.5 E11.41 E78.00 August 25, 2024 9:06am Amb Documentation September 21, 2024 2:31 pm SYNCOPE October 04, 2024 4: 05pm Seizure October 05, 2024 8: 24am seizure October 05, 2024 7: 29pm increase in seizure activity September 10:37am Reason for Visit Admit Date Encounter for medication monitoring Augu st 2024 10:37am Chief Complaint Admit Date Z00.00 E11.9 E66.812 E78.5 E11.41 E78.00 August 25, 2024 9:06am Amb Documentation September 21, 2024 2:31 pm SYNCOPE October 04, 2024 4: 05pm Seizure October 05, 2024 8: 24am seizure October 05, 2024 7: 29pm increase in seizure activity September 10:37am Z51.81 October 11, 2024 3: 41pm Reason for Visit Admit Date Encounter for medication monitoring Augu 2024 10:37am Seizures October 07, 2024 10 :37am Additional Source Comments INFORMATION SOURCE (unrecogn ized section and content) DATE CREATED AUTHOR 12/01/2020 [facility] DATE CREATED AUTHOR AUTHOR'S ORGANIZ ATION 06/28/2024 [facility] DATE CREATED AUTHOR AUTHOR'S ORGANIZ ATION 10/15/2024 [facility] DATE CREATED AUTHOR AUTHOR'S ORGANIZ ATION 10/30/2024 [facility] DATE CREATED AUTHOR AUTHOR'S ORGANIZ ATION 12/31/2024 [facility] EPIC Care Teams (unrecognized sec tion and content) Team Status: Active Member Role Status Dates Delgado Valdez MD Primary Care Provider Active Team Status: Inactive Member Role Status Dates Delgado Valdez MD Primary Care Provider Active Swapnil Quigley , DOEmergency ProviderActiveAnoop Adrienne , MDAdmit Provider ActiveMarlinda De MDAttending ProviderActiveKatherine SciarappaOther ProviderActiveNicole Tamara , DOOther ProviderActiveTerrance Williamson MDOther ProviderActiveChristophe M Phil , DOOther ProviderActiveFelicia Windmariela , ANP-BCOther ProviderActiveAdam Shane Stack , DOOther ProviderActiveBriseyda Ugalde , APRNOther ProviderActiveMartha Franco , SAMPLE COLOR MAKER-COther ProviderActiveHeidi Blaise , COUNTY HISTORIAN ACNP-BCOther ProviderActiveNabil Holman MDOther ProviderActiveChcassiatopher E MD NeftaliOther ProviderActiveMoenid Blandon MDOther ProviderActive Valdemar Petit , Other ProviderActiveMariza Tesfaye MDOther Provider ActiveAlexander Summers MDOther ProviderActiveBam Belle MDOther Provider ActiveTor Pepper , Other ProviderActiveRaul Kwong MDOther Provider Active Team Status: Active Member Role Status Dates Delgado Valdez MD Primary Care Provider Active Swapnil Quigley , DOEmergency ProviderActiveAnoop Adrienne , MDAdmit Provider, Attending ProviderActive Team Status: Inactive Member Role Status Dates Delgado Valdez MD Primary Care Provider Active Swapnil Quigley , DOEmergency ProviderActiveAnoop Adrienne , MDAdmit Provider ActiveKatherine SciarappaOther ProviderActiveNicole Tamara , DOOther Provider ActiveTerrance Williamson MDOther ProviderActiveChristophe M Phil , DOOther ProviderActiveFelicia Qian , ANP-BCOther ProviderActiveAdam Shane Stack , DO Other ProviderActiveAngesteven Ugalde , APRNOther ProviderActiveMartha Franco , SAMPLE COLOR MAKER-COther ProviderActiveHeidi Blaise , COUNTY HISTORIAN ACNP-BCOther ProviderActiveNabil Holman MDOther ProviderActiveChristopher E MD NeftaliOther ProviderActive Anabelle Blandon MDOther ProviderActiveGregalie Petit , DOOther ProviderActiveMariza Tesfaye MDOther ProviderActiveJoevy Summers MDOther ProviderActiveAdashane Belle MDOther ProviderActiveTor Pepper DOOther ProviderActiveJoepi Kwong MDOther ProviderActiveMarlinda De , MDAttending ProviderActive Team Status: Inactive Member Role Status Dates Delgado Valdez MD Primary Care Provider Active Padmini Welhs , COUNTY HISTORIAN ACNP-BCAttending ProviderActive Team Status: Inactive Member Role Status Dates Delgado Valdez MD Primary Care Provider Active Aryan Lindsay MDAttending ProviderActive Team Status: Inactive Member Role Status Dates Delgado Valdez MD Primary Care Provider Active Avinash Wray ProviderActive Team Status: Inactive Member Role Status Dates Delgado Valdez MD Primary Care Provider Active Nemo Kennedy , SAMPLE COLOR MAKER-CAttending ProviderActive Team Status: Inactive Member Role Status Dates Aryan Lindsay MD Attending Provider Active Start: February 03, 2023 End: February 03, 2023 Team Status: Inactive Member Role Status Dates Delgado Valdez MD Primary Care Provider Active S tart: February 14, 2023 End: February 14my Marcia , SAMPLE COLOR MAKER-CAttending ProviderActiveStart: February 14, 2023 End: February 14, 2023 Team Status: Inactive Member Role Status Dates Delgado Valdez MD Primary Care Provider Active S tart: March 03, 2023 End: March 03my Marcia , SAMPLE COLOR MAKER-CAttending ProviderActiveStart: March 03, 2023 End: March 03, 2023 Team Status: Inactive Member Role Status Dates Alexander Barrera MD Emergency Provider Active Star t: March 13, 2023 End: March 13ARY Elizabethrimary Care ProviderActiveStart: March 13, 2023 End: March 13, 2023 Team Status: Inactive Member Role Status Dates Delgado Valdez MD Primary Care Provider Active S tart: April 05, 2023 End: April 05, 2023Avinash Wray ProviderActiveStart: April 05, 2023 End: April 05, 2023Team MemberRelationshipSpecialtyStart DateEnd Date Delgado Valdez MD [address] [place] [address] PCP - [facility]07/09/22 Delgado Valdez MD [address] [place] [address] PCP - [facility]08/05/22Team MemberRelationshipSpecialtyStart DateEnd Delgado Valdez MD [address] [place] [address] PCP - [facility]07/09/22 Delgado Valdez MD [address] [place] [address] PCP - [facility]08/05/22 Team Status: Inactive Member Role Status Dates Delgado Valdez MD Primary Care Provider Active S tart: April 15, 2023 End: April 15Betito West ProviderActiveStart: April 15, 2023 End: April 15, 2023 Team Status: Inactive Member Role Status Dates Delgado Valdez MD Primary Care Provider Active S tart: May 06, 2023 End: May 05Pedro Bernardo ProviderActiveStart: May 06, 2023 End: May 06, 2023 Team Status: Inactive Member Role Status Dates Delgado Valdez MD Primary Care Provider Active S tart: May 30, 2023 End: May 30, 2023Avinash Thornton ProviderActiveStart: May 30, 2023 End: May 30, 2023 Team Status: Inactive Member Role Status Dates Delgado Valdez MD Primary Care Provider Active S tart: June 11, 2023 End: June 17ndGermain Guzman ProviderActiveStart: June 11, 2023 End: June 18, 2023Larry Morelos , DOOther ProviderActiveStart: June 11, 2023 End: June 17tino Sage DOOther ProviderActiveStart: June 11, 2023 End: June 17dolores Craft MDAttending ProviderActiveStart: June 11, 2023 End: June 18, 2023Cas Springer , DOOther ProviderActiveStart: June 11, 2023 End: June 17mason Olmos , APRNOther ProviderActiveStart: June 11, 2023 End: June 18, 2023Salina Carpenter APRNOther ProviderActiveStart: June 11, 2023 End: June 18, 2023Magaly Devi ProviderActiveStart: June 11, 2023 End: June 18, 2023 Team Status: Active Member Role Status Dates Delgado Valdez MD Primary Care Provider Active S tart: June 11, 2023 Yasir Chaves , MDAdmit Provider, Other ProviderActiveStart: June 11, 2023 Gloria Barrera APRNAtluz mariading ProviderActiveStart: June 11, 2023 Team Status: Active Member Role Status Dates Delgado Valdez MD Primary Care Provider Active S tart: June 12, 2023 Bigg Schulz MDAdmmadeleine ProviderActiveStart: June 12, 2023 Constantino Burdick DOOther ProviderActiveStart: June 12, 2023 Kaylynn Devi Provider, Other ProviderActiveStart: June 12, 2023 Team Status: Active Member Role Status Dates Delgado Valdez MD Primary Care Provider Active S tart: June 16, 2023 Germain Corrales ProviderActiveStart: June 16, 2023 Magaly Devi ProviderActiveStart: June 16, 2023 Albino Morelos DOAttending Provider, Other ProviderActiveStart: June 16, 2023 Samra Caseher ProviderActiveStart: June 16, 2023 Nat Sage DOOther ProviderActiveStart: June 16, 2023 Hugh Craft MDOther ProviderActiveStart: June 16, 2023 Team Status: Active Member Role Status Dates Delgado Valdez MD Primary Care Provider Active S tart: June 18, 2023 Bigg Schulz , MDAdmit ProviderActiveStart: June 18, 2023 Albino Morelos , DOOther ProviderActiveStart: June 18, 2023 Nat Sage , DOOther ProviderActiveStart: June 18, 2023 Hugh Craft , MDAttending Provider, Other ProviderActiveStart: June 18, 2023 Cas Springer , DOOther ProviderActiveStart: June 18, 2023 Silvia Olmos , APRNOther ProviderActiveStart: June 18, 2023 Salian Carpenter , APRNOther ProviderActiveStart: June 18, 2023 Magaly Devi ProviderActiveStart: June 18, 2023 Team Status: Inactive Member Role Status Dates Delgado Valdez MD Primary Care Provide r, Attending Provider Active Start: June 27, 2023 End: June 27, 2023 Team Status: Active Member Role Status Dates Delgado Valdez MD Primary Care Provider Active S tart: June 11, 2023 End: June 18, 2023Yasir Chaves , MDAdmit Provider, Other ProviderActive Start: June 11, 2023 End: June 17nikia Barrera APRNAtarchie ProviderActiveStart: June 11, 2023 End: June 18, 2023 Team Status: Active Member Role Status Dates Delgado Valdez MD Primary Care Provider Active S tart: June 12, 2023 End: June 17ndtoby Schulz , MDAdmit ProviderActiveStart: June 12, 2023 End: June 18, 2023Constantino Burdick DOOther ProviderActiveStart: June 12, 2023 End: June 18, 2023Chivo Sidhu , MDAttending Provider, Other ProviderActiveStart: June 12, 2023 End: June 18, 2023 Team Status: Active Member Role Status Dates Delgado Valdez MD Primary Care Provider Active S tart: June 16, 2023 End: June 17ndrerolanda Schulz , MDAdmit ProviderActiveStart: June 16, 2023 End: June 18, 2023Magaly Devi ProviderActiveStart: June 16, 2023 End: June 18, 2023Stacey Vail Provider, Other ProviderActive Start: June 16, 2023 End: June 18, 2023Elma Case ProviderActiveStart: June 16, 2023 End: June 17Suzanna Roman ProviderActiveStart: June 16, 2023 End: June 17Magaly Thornton ProviderActiveStart: June 16, 2023 End: June 18, 2023 Team Status: Active Member Role Status Dates Delgado Valdez MD Primary Care Provider Active S tart: June 18, 2023 End: June 17rerolanda Schulz , MDAdmit ProviderActiveStart: June 18, 2023 End: June 18, 2023Suzanna Vail ProviderActiveStart: June 18, 2023 End: June 17Suzanna Roman ProviderActiveStart: June 18, 2023 End: June 17Niko Thorntonending Provider, Other ProviderActive Start: June 18, 2023 End: June 18, 2023Suzanna Orourke ProviderActiveStart: June 18, 2023 End: June 17Elma Goldman ProviderActiveStart: June 18, 2023 End: June 18, 2023Elma Case ProviderActiveStart: June 18, 2023 End: June 18, 2023Magaly Devi ProviderActiveStart: June 18, 2023 End: June 18, 2023 Team Status: Inactive Member Role Status Dates Delgado Valdez MD Primary Care Provider Active S tart: July 26, 2023 End: July 25rthur J Cervantes , PA-CEmergency ProviderActiveStart: July 26, 2023 End: July 26, 2023 Team Status: Active Member Role Status Dates Delgado Valdez MD Primary Care Provider Active S tart: June 12, 2023 End: June 17ndrerolanda HuangJazz , MDAdmit ProviderActiveStart: June 12, 2023 End: June 18, 2023Constantino Burdick , DOOther ProviderActiveStart: June 12, 2023 End: June 18, 2023Hector E Sagar-Belledonne , MDAttending Provider, Other ProviderActiveStart: June 12, 2023 End: June 17hristopher E Neftali , MDActiveStart: June 12, 2023 End: June 18, 2023 Team Status: Inactive Member Role Status Dates Delgado Valdez MD Primary Care Provide r, Attending Provider Active Start: August 18, 2023 End: August 18, 2023 Team Status: Inactive Member Role Status Dates Swapnil Quigley , Emergency Provider Active Start: October 15, 2023 End: October 14ARY Elizabethrithomas Care ProviderActiveStart: October 15, 2023 End: October 15, 2023 Team Status: Inactive Member Role Status Dates Delgado Valdez MD Primary Care Provide r, Attending Provider Active Start: November 04, 2023 End: November 04, 2023Team MemberRelationshipSpecialtyStart DateEnd Date Delgado Valdez MD [address] [place] [address] [facility] Delgado Valdez MD [address] [place] [address] PCP - [facility]08/05/22Team MemberRelationshipSpecialtyStart DateEnd Date Delgado Valdez MD [address] [place] [address] PCP - [facility]07/09/22 Delgado Valdez MD [address] [place] [address] [facility]08/05/22 Team Status: Inactive Member Role Status Dates Nat Gutierrez MD Emergency Provider Active Start: January 15, 2024 End: January 14riMaxi Graf Care ProviderActiveStart: January 15, 2024 End: January 15, 2024Team MemberRelationshipSpecialtyStart DateEnd Date Delgado Valdez MD [address] [place] [id number] PCP - [facility]07/09/22 Delgado Valdez MD [address] [place] [id number] [facility] - [facility]08/05/22 Nemo Kennedy NP [address] [place] [address] [facility]01/13/24 Alize Arrington NP [address] [place] [address] [facility]01/13/24Team MemberRelationshipSpecialtyStart DateEnd Date Delgado Valdez MD [address] [place] [address] PCP - [facility]07/09/22 Delgado Valdez MD [address] [place] [address] PCP - [facility]08/05/22 Nemo Kennedy NP [address] [place] [address] [facility]01/13/24 Alize Arrington NP [address] [place] [id number] [facility]01/13/24Team MemberRelationshipSpecialtyStart DateEnd Date Delgado Valdez MD [address] [place] [address] PCP - [facility]07/09/22 Delgado Valdez MD [address] [place], [facility] - [facility]08/05/22 Nemo Kennedy SAMPLE COLOR MAKER [address] [place] [address] [facility] Pract[facility]01/13/24 Alize Arrington NP [address] [place] [id number] [facility]01/13/24Team MemberRelationshipSpecialtyStart DateEnd Date Delgado Valdez MD [address] [place] [address] [facility] - [facility]07/09/22 Delgado Valdez MD [address], [facility] PCP - [facility]08/05/22 Nemo Kennedy NP [address] [place] [address] [facility]01/13/24 Alize Arrington NP [address] [place] [id number] [facility]01/13/24Team MemberRelationshipSpecialtyStart DateEnd Delgado Valdez MD [address] [place] [address] PCP - [facility]07/09/22 Delgado Valdez MD [address] [place] [address] PCP - [facility]08/05/22 Nemo Kennedy, SAMPLE COLOR MAKER [address] [place] [address] [facility]01/13/24 Alize Arrington NP [address] [place] [id number] [facility]01/13/24Team MemberRelationshipSpecialtyStart DateEnd Date Delgado Valdez MD [address] [place] [address] PCP - [facility]07/09/22 Delgado Valdez MD [address] [place] [address] PCP - [facility]08/05/22Te MemberRelationshipSpecialtyStart DateEnd Delgado Valdez MD [address] [place] [address] PCP - [facility]07/09/22 Delgado Valdez MD [address] [place] [address] PCP - [facility]08/05/22 Nemo Kennedy, [employer]ER [address] [place] [address] Nurse PractitionerSt. [facility]01/13/24 Alize Arrington NP [address] [place] [address] Nurse PractitionerSt. [facility]01/13/24Te MemberRelationshipSpecialtyStwitts springs DateEnd Delgado Valdez MD [address] [place] [address] PCP [facility]07/09/22 Delgado Valdez MD [address] [place] [address] PCP - [facility]08/05/22 Nemo Kennedy [employer] [address] [place] [address] Nurse PractitionerSt. [facility]01/13/24 Alize Arrington NP [address] [place] [address] Nurse PractitionerSt. [facility]01/13/24Team MemberRelationshipSpecialtyStart DateEnd Date Delgado Valdez MD [address] [place] [address] PCP - [facility]07/09/22 Delgado Valdez MD [address] [place] [address] PCP - [facility]08/05/22 Nemo Kennedy [employer] [address] [place] [address] Nurse [facility]01/13/24 Alize Arrington NP [address] [place] [address] Nurse [facility]01/13/24Te MemberRelationshipSpecialtyStart DateEnd Date Delgado Valdez MD [address] [place] [address] [facility]07/09/22 Delgado Valdez MD [address] [place] [address] PCP - [facility]08/05/22 Nemo Kennedy, [employer]ER [address] [place] [address] Nurse PractitionerSt. [facility]01/13/24 Alize Arrington NP [address] [place] [address] Nurse PractitionerSt. [facility]01/13/24 Team Status: Inactive Member Role Status Dates Delgado Valdez MD Primary Care Provide r, Referring Provider Active Start: April 14, 2024 End: April 14, 2024Referral SelfAttending ProviderActiveStart: April 14, 2024 End: April 14, 2024 Team Status: Inactive Member Role Status Dates Delgado Valdez MD Primary Care Provider Active S tart: April 19, 2024 End: April 19lexPedro Juan ProviderActiveStart: April 19, 2024 End: April 19, 2024 Team Status: Inactive Member Role Status Dates Delgado Valdez MD Primary Care Provider Active S tart: April 24, 2024 End: April 24, 2024Pedro Coffey ProviderActiveStart: April 24, 2024 End: April 24, 2024Team MemberRelationshipSpecialtyStart DateEnd Date Delgado Valdez MD [address] [place] [address] PCP - [facility]07/09/22 Delgado Valdez MD [address] [place] [address] PCP - [facility]08/05/22 Nemo Kennedy NP [address] [place] [address] Nurse PractitionerSt[facility]01/13/24 Alize Arrington NP [address] [place] [address] Nurse PractitionerSt. [facility]01/13/24Team MemberRelationshipSpecialtyStart DateEnd Date Delgado Valdez MD [address] [place] [address] PCP - [facility]07/09/22 Delgado Valdez MD [address] [place], [facility] PCP - [facility]08/05/22 Nemo Kennedy [employer] [address] [place] [address] Nurse PractitionerSt. [facility]01/13/24 Alize Arrington NP [address] [place] [address] Nurse PractitionerSt. [facility]01/13/24Team MemberRelationshipSpecialtyStart DateEnd Date Delgado Valdez MD [address] [place] [address] PCP - [facility]07/09/22 Delgado Valdez MD [address] [facility] Nemo Kennedy [employer] [address] [place] [address] Nurse PractitionerSt[facility]01/13/24 Alize Arrington NP [address] [place] [address] Nurse PractitionerSt. [facility]01/13/24 Team Status: Inactive Member Role Status Dates Delgado Valdez MD Primary Care Provider Active S tart: May 25, 2024 End: May 26Pedro Nunes ProviderActiveStart: May 25, 2024 End: May 26, 2024Team MemberRelationshipSpecialtyStart DateEnd Date Delgado Valdez MD [address] [facility] PCP - [facility]07/09/22 Delgado Valdez MD [address] [facility] PCP - [facility]08/05/22 Nemo Kennedy NP [address] [facility] Nurse PractitionerSt. [facility]01/13/24 Alize Arrington NP [address] [place] [address] Nurse PractitionerSt. [facility]01/13/24Team MemberRelationshipSpecialtyStart DateEnd Date Delgado Valdez MD [address] [facility] PCP - [facility]St[facility]07/09/22 Delgado Valdez MD [address] [place] [address] PCP - [facility]08/05/22 Alize Arrington NP [address] [place] [address] Nurse PractitionerVan Buren County Hospitally Flfjlrnq50/19/24Team MemberRelationshipSpecialtyStart End Delgado Valdez MD [address] [place] [address] [facility]CP - [facility]07/09/22 Delgado Valdez MD [address] [place] [address] PCP - [facility]08/05/22 Alize Arrington NP [address] [place] [address] Nurse PractitionerSt. [facility]01/13/24Te MemberRelationshipSpecialtyStart End Delgado Valdez MD [address] [place] [address] PCP - [facility]07/09/22 Delgado Valdez MD [address] [place] [address] PCP - [facility]08/05/22 Alize Arrington NP [address] [place] [address] Nurse PractitionerSt. [facility]01/13/24Te MemberRelationshipSpecialtyStart End Delgado Valdez MD [address] [place] [address] PCP - [facility]07/09/22 Delgado Valdez MD [address] [place], [facility]08/05/22 Alize Arrington NP [address] [place] [address] Nurse [facility]01/13/24Team MemberRelationshipSpecialtyStart DateEnd Date Delgado Valdez MD [address] [place], [facility]07/09/22 Delgado Valdez MD [address] [place], [facility]08/05/22 Alize Arrington NP [address] [place] [address] Nurse [facility]01/13/24Team MemberRelationshipSpecialtyStart DateEnd Date Delgado Valdez MD [address] [place], [facility]07/09/22 Delgado Valdez MD [address] [place], [facility]08/05/22 Alize Arrington NP [address] [place] [address] Nurse PractitionerSt. [facility]01/13/24Team MemberRelationshipSpecialtyStart DateEnd Date Delgado Valdez MD [address] [place] [address] PCP - [facility]07/09/22 Delgado Valdez MD [address] [place] [address] PCP - [facility]08/05/22 Alize Arrington [employer] [address] [place] [address] Nurse PractitionerSt. [facility]01/13/24Team MemberRelationshipSpecialtyStart DateEnd Date Delgado Valdez MD [address] [place] [address] PCP - [facility]07/09/22 Delgado Valdez MD [address] [place] [address] PCP - [facility]08/05/22 Alize Arrington [employer] [address] [place] [address] Nurse PractitionerSt. [facility]01/13/24Team MemberRelationshipSpecialtyStart DateEnd Date Delgado Valdez MD [address] [place] [address] PCP - [facility]07/09/22 Delgado Valdez MD [address] [place] [address] [facility]08/05/22 Alize Arrington NP [address] [place] [address] Nurse PractitionerSt. [facility]01/13/24Team MemberRelationshipSpecialtyStart DateEnd Date Delgado Valdez MD [address] [place] [address] [facility] - [facility]07/09/22 Delgado Valdez MD [address] [place] [address] [facility] - [facility]08/05/22 Alize Arrington NP [address] [place] [address] Nurse [facility]01/13/24 Team Status: Inactive Member Role Status Dates Delgado Valdez MD Primary Care Provider Active S tart: August 25, 2024 End: August 25, 2024Alize Arrington APRN [employer]-CAttending ProviderActiveStart: August 25, 2024 End: August 25, 2024Team MemberRelationshipSpecialtyStart DateEnd Date Delgado Valdez MD [address] [place] [address] [facility]07/09/22 Delgado Valdez MD [address] [place] [address] [facility]08/05/22 Alize Arrington NP [address] [place] [address] Nurse PractitionerSt. [facility]01/13/24 Team Status: Active Member Role Status Herson Valdez MD Primary Care Provider Active S tart: September 21, 2024 [facility] ProviderActiveStart: September 21, 2024 Team Status: Inactive Member Role Status Herson Gutierrez MD Emergency Provider Active Start: October 04, 2024 End: October 04gael Valdez , ARYrithomas Care ProviderActiveStart: October 04, 2024 End: October 04, 2024 Team Status: Inactive Member Role Status Herson Silveira DO Emergency Provider Active St art: October 05, 2024 End: October 05gael Valdez , Maxi Care ProviderActiveStart: October 05, 2024 End: October 05, 2024 Team Status: Inactive Member Role Status Herson Valdez MD Primary Care Provider Active S tart: October 05, 2024 End: October 05, 2024Alexander Barrera [facility]st[facility] ProviderActiveStart: October 05, 2024 End: October 05, 2024 Team Status: Inactive Member Role Status Herson Valdez MD Primary Care Provider Active S tart: October 07, 2024 End: October 07, 2024Saniels Sebastian APRN-FNP-CAttending ProviderActiveStart: October 07, 2024 End: October 07, 2024 Team Status: Inactive Member Role Status Herson Valdez MD Primary Care Provider Active S tart: October 11, 2024 End: October 11, 2024CHENCHO AvilaFNP-CAttending ProviderActiveStart: October 11, 2024 End: October 11, 2024Team MemberRelationshipSpecialtyStart DateEnd Delgado West MD [address] [place] [address] PCP - [facility]07/09/22 Delgado Valdez MD [address] [place] [address] [facility] - [facility]08/05/22 Alize Arrington NP [address] [place] [address] Nurse [facility]01/13/24Team MemberRelationshipSpecialtyStart DateEnd Date Delgado Valdez MD [address] [place] [address] [facility] - [facility]07/09/22 Delgado Valdez MD [address] [place], [facility] - [facility]08/05/22 Alize Arrington NP [address] [place] [address] Nurse [facility]01/13/24Team MemberRelationshipSpecialtyStart DateEnd Date Delgado Valdez MD [address] [place] [address] [facility]07/09/22 Delgado Valdez MD [address] [place] [address] [facility]08/05/22 Alize Arrington NP [address] [place] [address] Nurse PractitionerSt. [facility]01/13/24Team MemberRelationshipSpecialtyStart DateEnd Delgado Valdez MD [address] [place] [address] PCP - [facility]St[facility]07/09/22 Delgado Valdez MD [address] [place] [address] PCP - [facility]08/05/22 Alize Arrington NP [address] [place] [address] Nurse PractitionerSt. [facility]01/13/24 Amy Soliman LSW [address] [place] [address] Social WorkerSt. [facility]10/15/24Team MemberRelationshipSpecialtyStart DateEnd Delgado Valdez MD [address] [place] [address] PCP - [facility]07/09/22 Delgado Valdez MD [address] [place] [address] PCP - [facility]08/05/22 Alize Arrington NP [address] [place] [address] Nurse PractitionerSt. [facility]01/13/24 Amy Soliman LSW [address] [place] [address] Social WorkerSt. [facility]10/15/24 Name Effective Dates (start - stop) Status Members No Information Team MemberRelationshipSpecialtyStart DateEnd Date Delgado Valdez MD [address] [place] [address] PCP - [facility]07/09/22 Delgado Valdez MD [address] [place] [address] PCP - [facility]08/05/22 Alize Arrington NP [address] [place] [address] Nurse PractitionerSt. [facility]01/13/24Team MemberRelationshipSpecialtyStart DateEnd Delgado Valdez MD [address] [place] [address] PCP - [facility]07/09/22 Delgado Valdez MD [address] [place] [address] PCP - [facility]08/05/22 Alize Arrington NP [address] [place] [address] Nurse PractitionerSt. [facility]01/13/24 Goals (unrecognized section and content) Health Concern Goal Type Priority Status No Information REASON FOR VISIT (unrecogniz ed section and content) ReasonCommentsMed RefillReasonCommentsToenail CareNon DM NailsReasonOnset Date CommentsMed [id number]asonCommentsToenail CareNon dm nail careReasonOnset DateCommentsMed Ddysbx7404/06/2024ReasonOnset DateComments Med Dkywgr1507/05/2024ReasonCommentsSleep ApneaConsultationSpecialtyDiagnoses / ProceduresReferred By ContactReferred To ContactPulmonary Disease / Pulmonology Diagnoses History of obstructive sleep apnea Oxygen dependent Procedures [place] OFFICE/OUTPATIENT NEW HIGH MDM 60 MINUTES Alize Arrington, [employer]ER [address] [place] [address] Phone: tel: fax: Patsy Craft, DO [address] [place] [address] Phone: tel: fax: Referral IDStatusReasonStart DateExpiration DateVisits RequestedVisits [id number] Specialty Services Required /[id number] Foot Care FOR RECORDS PERTAINING TO PATIENTS WHO ARE OR HAVE BEEN ENROLLED IN A CHEMICAL DEPENDENCY/SUBSTANCEABUSE PROGRAM, SOME INFORMATION MAY BE OMITTED. This clinical summary was aggregated from multiple sources. Caution should be exercised in using it in the provision of clinical care. This summary normalizes information from multiple sources, and as a consequence, information in this document may materially change the coding, format and clinical context of patient data. In addition, data may be omitted in some cases. CLINICAL DECISIONS SHOULD BE BASED ON THE PRIMARY CLINICAL RECORDS. [facility] [employer] [facility]. provides no warranty or guarantee of the accuracy or completeness of information in this document.
[2025-01-24 10:29] VITALS: PULSE 84; O2SAT 96
== END 2025-01-24 10:33 | disposition home or self-care (01) ==
PROVIDERS: Emergency Provider Emergency Medicine; PCP Family Medicine
DX: U07.1 COVID-19 (principal); Q90.9 Down syndrome, unspecified; R06.02 Shortness of breath
CPT/HCPCS: 36415; 71045; 80053; 84484; 85025; 87804; 87811; 93005; 96361; 96374; 96375; 99285; J1885; J2405; J3490